=== PATIENT | male | born 1960 | race African-American/Black ===

== ENCOUNTER 2017-01-20 12:27 | Inpatient (IN) | payer MEDICARE, OTHER ==
[2017-01-20] VITALS (10 sets, daily range): BP systolic 130–174; BP diastolic 65–98; PULSE 100–120; RESP 20; Ht 172.7 cm; Wt 89.0 kg
[~2017-01-20] VITALS: Ht 172.7 cm; Wt 89.0 kg
[~2017-01-20 12:27] MED LIST: ASPI-664 PO; ATOR20TA65 PO; GABA100C14 PO; LEVO150T67 PO; LISI-313 PO; MTF1000T PO; QUET300T13 PO; SERT50TA6 PO; SVL400T PO; UDMOM PO
[2017-01-20] MEDS ORDERED: SODIUM CHLORIDE 0.9% 1L BAG IV* STA (12:43)
[2017-01-20] MEDS ORDERED: CEFEPIME 2GM/50 ML (PMX) 50 ML IVPB STA (12:43)
[2017-01-20 13:06] LABS: ADD SCAN DIFF NO
[2017-01-20 13:10] LABS: ABNORMAL IP MESSAGE 1; BASOPHIL # 0.1 10^3/ul (0.0-0.1); BASOPHILS % 0.5 % (0.0-2.0); EOSINOPHILS # 0.1 10^3/ul (0.0-0.5); EOSINOPHILS % 1.2 % (0.0-7.0); HEMATOCRIT 40.6 % (42.0-52.0); HEMOGLOBIN 13.1 g/dl (14.0-18.0); LYMPHOCYTES # 0.5 10^3/ul (0.8-2.9); LYMPHOCYTES % 4.9 % (15.0-51.0); MEAN CORPUSCULAR HEMOGLOBIN 29.1 pg (29.0-33.0); MEAN CORPUSCULAR HGB CONC 32.3 g/dl (32.0-37.0); MEAN CORPUSCULAR VOLUME 90.2 fl (82.0-101.0); MONOCYTE # 0.6 10^3/ul (0.3-0.9); MONOCYTES % 6.2 % (0.0-11.0); NEUTROPHIL # 7.9 10^3/ul (1.6-7.5); NEUTROPHILS % 86.7 % (39.0-77.0); PLATELET COUNT 104 10^3/UL (140-415); RED CELL DISTRIBUTION WIDTH 18.4 % (11.5-14.5); WHITE BLOOD COUNT 9.2 10^3/ul (4.8-10.8)
--- NOTE | 2017-01-20 13:15 | RADRPT ---
PROCEDURE: CT Brain without contrast. CLINICAL INDICATION: Altered mental status TECHNIQUE: A CT of the brain was performed on a multidetector CT scanner utilizing axial sections from the skull base through the vertex without contrast. Images were reviewed on a high-resolution [employer] workstation. Exam CTDI = 44.95 mGy and the DLP = 720.23 mGy-cm. One or more of the following dose reduction techniques were used: Automated exposure control Adjustment of the mA and/or kV according to patient size. Use of iterative reconstruction technique. COMPARISON: CT head 04/09/2016 FINDINGS: Mild diffuse cerebral and cerebellar atrophy is present. There is proportionate dilatation of the v entricular system and sulci in a symmetric fashion. There is prominence of the extraaxial spaces sec ondary to atrophy. There is no evidence of intracranial hemorrhage, mass effect or midline shift. N o abnormal intra-axial or extra-axial fluid collections are seen. The density of the brain is amos l and the bray/white matter differentiation is well preserved. Mild patchy diffuse deep white matte r microangiopathic ischemic change is seen. The osseous structures are unremarkable. Paranasal s inuses are clear. Vascular calcifications are identified. IMPRESSION: 1. No intracranial hemorrhage, mass effect or midline shift. 2. Mild generalized atrophy. Mild microangiopathic ischemic change. 3. Intracranial atherosclerosis. RPTAT: EE .Philomena Phillips MD, MD Date Time Electronically viewed and signed by .Philomena Phillips MD, on 01/20/2017 13:15 .O/
[2017-01-20] MEDS ORDERED: LEVO150T67 PO (13:19)
[2017-01-20 13:23] LABS: INR 1.11; PROTIME 14.3 Sec (12.2-14.2); PT RATIO 1.1
[2017-01-20 13:24] LABS: PARTIAL THROMBOPLASTIN TIME 30.8 Sec (25.0-35.0)
[2017-01-20 13:27] LABS: ALBUMIN 4.4 g/dl (3.3-4.9); ALBUMIN/GLOBULIN RATIO 1.12; CALCIUM 9.1 mg/dl (8.4-10.2); CREATININE 12.81 mg/dl (0.61-1.24); POTASSIUM 5.6 mmol/L (3.5-5.1); TOTAL PROTEIN 8.3 g/dl (6.1-8.1)
[2017-01-20 13:38] LABS: TROPONIN-I 0.112 ng/ml (0.00-0.12)
--- NOTE | 2017-01-20 14:02 | RADRPT ---
PROCEDURE: XR Chest. CLINICAL INDICATION: Sepsis TECHNIQUE: Chest AP portable. COMPARISON: 04/15/2016 FINDINGS: Left internal jugular tunnel dialysis catheter. The mediastinal structures are unremarkable. There is calcification of the thoracic aorta (consiste nt with atherosclerosis). There is mild cardiomegaly. There is no pulmonary venous hypertension. There is a RLL patchy consolidation. There is a small to moderate-sized right pleural effusion. Th e osseous structures are unremarkable. IMPRESSION: Mild cardiomegaly. Pulmonary venous hypertension. RLL patchy consolidation. Small to moderate-sized right pleural effusion. RPTAT: HGDB .Chris Law MD, MD Date Time Electronically viewed and signed by .Chris Law MD, MD on 01/20/2017 14:01 .B/
[2017-01-20 14:06] LABS: ADD UMIC YES; UR BILIRUBIN (Dip) NEGATIVE (NEGATIVE); UR BLOOD (Dip) 1+ (NEGATIVE); UR CLARITY CLEAR (CLEAR); UR COLOR LT. YELLOW (YELLOW); UR KETONES (Dip) NEGATIVE (NEGATIVE); UR LEUKOCYTE ESTERASE (Dip) TRACE (NEGATIVE); UR NITRITE (Dip) NEGATIVE (NEGATIVE); UR TOTAL PROTEIN (Dip) 2+ (NEGATIVE); UR UROBILINOGEN (Dip) 0.2 E.U./dL (0.1-1.0)
[2017-01-20 14:30] LABS: UR BACTERIA MODERATE
[2017-01-20] MEDS ORDERED: ONDANSETRON 4 MG INJ IV PRN (15:30)
[2017-01-20] MEDS ORDERED: ACETAMINOPHEN 325 MG TAB PO PRN (15:30)
--- NOTE | 2017-01-20 16:20 | ERA ---
ER Documentation Chief Complaint Date/Time DATE: 01/20/17 TIME: 16:17 Chief Complaint HYPOTENSIVE ALOC AND TACHY, HPI This 56-year-old male supposedly called 911 himself from his home where he lives alone. When paramedics arrived the patient was a very poor historian able to give minimal information but was hypotensive and tachycardic. Reviewed the patient's EMR and see is a diabetic on dialysis with a history of coronary disease, bipolar and multiple other comorbidities. ROS Unobtainable Medications Home Meds Active Scripts Lisinopril* (Lisinopril*) 5 Mg Tablet, 2.5 MG PO DAILY for 30 Days, TAB Prov:JESSIKA JAMA MD 04/18/16 Metformin* (Glucophage*) 1,000 Mg Tablet, 1000 MG PO WITH BREAKFAST DINNE, #30 TAB Prov:THOMASONGABRIEL V. DISTRICT CAPTAIN 04/12/16 Atorvastatin Calcium (Atorvastatin Calcium) 20 Mg Tablet, 20 MG PO HS for 30 Days, TAB Prov:THOMASONGABRIEL V. DISTRICT CAPTAIN 04/12/16 Aspirin* (Aspirin* EC) 81 Mg Tablet.dr, 81 MG PO DAILY for 30 Days Prov:GABRIEL THOMASON V. DISTRICT CAPTAIN 04/12/16 Sevelamer HCl (Renagel) 400 Mg Tab, 400 MG PO WITH MEALS for 30 Days, TAB Prov:THOMASONGABRIEL V. DISTRICT CAPTAIN 03/16/16 Sertraline Hcl* (Sertraline Hcl*) 50 Mg Tablet, 25 MG PO DAILY for 30 Days, TAB Prov:THOMASONGABRIEL V. DISTRICT CAPTAIN 03/16/16 Reported Medications Levothyroxine Sodium* (Levothyroxine Sodium*) 150 Mcg Tablet, 150 MCG PO BEFORE BREAKFAST, #30 TAB 01/20/17 Quetiapine Fumarate* (Seroquel*) 300 Mg Tablet, 300 MG PO DAILY, TAB 03/13/16 Gabapentin* (Gabapentin*) 100 Mg Capsule, 100 MG PO BID, #90 CAP 03/13/16 Discontinued Scripts Magnesium Hydroxide* (Rose' MOM*) 30 Ml Susp, 30 ML PO DAILY Y for CONSTIPATION, #1 Prov:JESSIKA JAMA MD 04/18/16 Allergies Allergies: Coded Allergies: No Known Allergy (Unverified , 04/14/16) PMhx/Soc History of Surgery: Yes (see PT notes) Anesthesia Reaction: No Hx Neurological Disorder: No Hx Respiratory Disorders: Yes (COPD, Asthma) Hx Cardiac Disorders: Yes (Non ischemic Cardiomyopathy. EF 26%) Hx Psychiatric Problems: No Hx Miscellaneous Medical Probl: Yes (ESRD (access left SC)) Hx Alcohol Use: No Hx Substance Use: No Hx Tobacco Use: No Smoking Status: Never smoker Physical Exam Vitals Vital Signs Date Time Temp Pulse Resp B/P Pulse Ox O2 Delivery O2 Flow Rate FiO2 01/20/17 13:44 102 13 138/94 99 Room Air 01/20/17 12:40 97.6 108 18 124/96 96 Physical Exam Const: [] Moderate distress Head: Atraumatic Eyes: Normal Conjunctiva, EOMI, PERRLA ENT: Normal External Ears, Nose and Mouth. Neck: Full range of motion..~ No meningismus. Resp: Decreased bibasilar breath sounds Cardio: Regular tachycardia, no murmurs Abd: Soft, non tender, non distended. Normal bowel sounds Skin: No petechiae or rashes Back: No midline or flank tenderness Ext: No cyanosis, or edema, dialysis catheter in place Neur: Awake and alert, oriented 1, unable to answer other questions, cannot participate full neuro but moves all 4 extremities Result Diagram: 01/20/17 1255 01/20/17 1255 Results 24 hrs Laboratory Tests Test 01/20/17 12:55 01/20/17 13:57 01/20/17 15:10 White Blood Count 9.210^3/ul Red Blood Count 4.5010^6/ul Hemoglobin 13.1g/dl Hematocrit 40.6% Mean Corpuscular Volume 90.2fl Mean Corpuscular Hemoglobin 29.1pg Mean Corpuscular Hemoglobin Concent 32.3g/dl Red Cell Distribution Width 18.4% Platelet Count 55989^3/UL Mean Platelet Volume fl Neutrophils % 86.7% Lymphocytes % 4.9% Monocytes % 6.2% Eosinophils % 1.2% Basophils % 0.5% Nucleated Red Blood Cells % 0.0/100WBC Neutrophils # 7.910^3/ul Lymphocytes # 0.510^3/ul Monocytes # 0.610^3/ul Eosinophils # 0.110^3/ul Basophils # 0.110^3/ul Nucleated Red Blood Cells # 0.010^3/ul Prothrombin Time 14.3Sec Prothrombin Time Ratio 1.1 INR International Normalized Ratio 1.11 Activated Partial Thromboplast Time 30.8Sec Sodium Level 135mmol/L Potassium Level 5.6mmol/L Chloride Level 100mmol/L Carbon Dioxide Level 17mmol/L Anion Gap 24 Blood Urea Nitrogen 84mg/dl Creatinine 12.81mg/dl Glucose Level 104mg/dl Lactic Acid Level 1.3mmol/L 1.3mmol/L Calcium Level 9.1mg/dl Total Bilirubin 0.0mg/dl Direct Bilirubin 0.00mg/dl Indirect Bilirubin 0.0mg/dl Aspartate Amino Transf (AST/SGOT) 15IU/L Alanine Aminotransferase (ALT/SGPT) 18IU/L Alkaline Phosphatase 122IU/L Troponin I 0.112ng/ml Total Protein 8.3g/dl Albumin 4.4g/dl Globulin 3.90g/dl Albumin/Globulin Ratio 1.12 Salicylates Level < 1.0mg/dl Acetaminophen Level < 10.0ug/ml Ethyl Alcohol Level < 10.0mg/dl Urine Color LT. YELLOW Urine Clarity CLEAR Urine pH 6.0 Urine Specific [place] 1.015 Urine Ketones NEGATIVE Urine Nitrite NEGATIVE Urine Bilirubin NEGATIVE Urine Urobilinogen 0.2 E.U./dL Urine Leukocyte Esterase TRACE Urine Microscopic RBC 5-10/HPF Urine Microscopic WBC 10-25/HPF Urine Epithelial Cells FEW Urine Bacteria MODERATE Urine Hemoglobin 1+ Urine Glucose 0.1%% Urine Total Protein 2+ Current Medications Medications (Trade) Dose Ordered Sig/Yocasta Route PRN Reason Start Time Stop Time Status Last Admin Dose Admin Sodium Chloride 2760 ml 2,760 ml BOLUS OVER 2 HOURS STAT IV* 01/20/17 12:43 01/20/17 12:45 DC 01/20/17 13:38 Cefepime HCl (Maxipime 2gm/50 ml (Pmx)) 50 ml @ 100 mls/hr ONCE STAT IVPB 01/20/17 12:43 01/20/17 13:12 DC 01/20/17 13:37 Ondansetron HCl (Zofran Inj) 4 mg ER BRIDGE PRN IV NAUSEA AND/OR VOMITING 01/20/17 15:30 01/21/17 15:29 Acetaminophen (Tylenol Tab) 650 mg ER BRIDGE PRN PO MILD PAIN/FEVER 6/3/17 15:30 01/21/17 15:29 Aspirin (Halfprin) 81 mg DAILY PO 01/21/17 09:00 UNV Atorvastatin Calcium (Lipitor) 20 mg HS PO 01/20/17 21:00 UNV Gabapentin (Neurontin) 100 mg BID PO 01/20/17 21:00 UNV Levothyroxine Sodium (Synthroid) 150 mcg BEFORE BREAKFAST PO 01/21/17 07:00 UNV Lisinopril (Zestril) 2.5 mg DAILY PO 01/21/17 09:00 UNV Metformin HCl (Glucophage) 1,000 mg WITH BREAKFAST DINNE PO 01/20/17 18:00 01/20/17 18:00 DC Quetiapine Fumarate (Seroquel) 300 mg DAILY PO 01/21/17 09:00 01/21/17 09:00 DC Sertraline HCl (Zoloft) 25 mg DAILY PO 01/21/17 09:00 01/21/17 09:00 DC Sevelamer HCl (Renagel) 400 mg WITH MEALS PO 01/20/17 18:00 UNV Insulin Aspart (Novolog Insulin Pen) NOVOLOG *MILD* ALGORITHM WITH MEALS BEDTIME SC 01/20/17 18:00 UNV Miscellaneous Information (* Miscellaneous Pharmacy Order) HYPOGLYCEMIA PROTOCOL w... ONCE ONCE XX 01/20/17 16:30 01/20/17 16:31 UNV Miscellaneous Information (* Miscellaneous Pharmacy Order) Discontinue Glyburide, Glipizide,... ONCE ONCE XX 01/20/17 16:30 01/20/17 16:31 UNV Miscellaneous Information (* Miscellaneous Pharmacy Order) Discontinue all previ... ONCE ONCE XX 01/20/17 16:30 01/20/17 16:31 UNV Insulin Glargine (Lantus) 17 unit DAILY@20 SC 01/20/17 20:00 UNV Procedures/MDM Likely combined UTI and pneumonia causing sepsis and encephalopathy. Patient was treated with 30 cc/kg of IV fluid as he was tachycardic, he is a dialysis patient with a elevated potassium level and will need dialysis today. Is also given cefepime empirically. Patient likely suffering from some fluid overload however EKG shows no cardiac ischemia currently. Tachycardia is responding to fluid resuscitation. No evidence of intracranial hemorrhage. I do not believe the patient needs a central line at this point he is protecting his airway enough to not need intubation currently. Spoke with Dr. Cobian who will be admitted this patient to telemetry. This point I believe the patient is stabilized enough not to need intensive care unit admission. 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 I see no hemorrhage, no mass- effect or midline shift, no skull fracture Critical care time 41 minutes: This includes treatment of unstable vital signs associated with sepsis from multiple sources, very careful fluid restriction station and dialysis patient, consideration of invasive procedures immediate antibiotic therapy, chart reviewed, discussion with admitting DrKathy, multiple visits the patient's bedside reassess status. This does not include any billable procedures Departure Diagnosis: Primary Impression: Sepsis due to pneumonia Additional Impressions: UTI (urinary tract infection) Metabolic encephalopathy Acute on chronic renal failure Hyperkalemia Condition: Serious ZAKIA LUNA DO Jan 20, 2017 16:20
[2017-01-20] MEDS ORDERED: Discontinue Glyburide, Glipizide, and/or Glimepiride prior to starting Insulin XX ONE (16:30)
[2017-01-20] MEDS ORDERED: HYPOGLYCEMIA PROTOCOL when Glucose is <70 mg/dL or symptomatic <90 mg/dL. XX ONE (16:30)
--- NOTE | 2017-01-20 16:41 | HP ---
Date/Time of Note Date/Time of Note DATE: 01/20/17 TIME: 16:12 Assessment/Plan VTE Prophylaxis VTE Prophylaxis Intervention: heparin Assessment/Plan Assessment/Plan 56 yo M who was brought in by EMS for alteration in mental status now managed for the followin. Acute encephalopathy which could be secondary to uremic encephalopathy 2. Right-sided pneumonia with right-sided pleural effusion 3. Probable urinary tract infection 4. End-stage renal disease on hemodialysis 5. Mild sepsis secondary to #2 and 3 6. Hyperkalemia secondary to renal disease 7. Chronic normocytic normochromic anemia of renal disease 8. Nonischemic cardiomyopathy with last known EF of 24% for which patient refused AICD 9. Hypothyroidism 10. Diabetes mellitus type 2 11. Chronic depression 12. Thrombocytopenia probably secondary to sepsis rule out iron deficiency PLAN: * Telemetry admit/ACS rule out * emergent nephrology consultation for hemodialysis * empiric antibiotic therapy / pancultures to include respiratory cultures * Will discontinue metformin in this patient with end-stage renal disease and we will also hold his depression medications due to alteration in mental status * Continue all other home meds and titrate for improved control * Further interventions per clinical course Prophylaxis with heparin and PPI. HPI/ROS Admit Date/Time Admit Date/Time 01/20/17 Hx of Present Illness This is a 56-year-old male with a past medical history of end-stage renal disease on hemodialysis who was brought in by EMS today because of confusion and altered mentation. At this time the patient is not able to tell me much, but he states that he was supposed to go to hemodialysis today and he could not go because he had come to the emergency room. He does report severe lethargy. He denies chest pain or abdominal pain. Preliminary ER workup is consistent with hypotension and probable pneumonia. He will be admitted for this and further intervention will be instituted when patient is able to give more of a history. ROS 12 point review of system was done and pertinent findings as noted above. However due to patient's clinical status, detailed review of system could not be done. PMH/Family/Social Past Medical History Hypertension: Anemia of CKD: Bipolar d/o: DM 2- insulin dependent Hypothyroidism COPD ESRD on HD T, [facility], Sat at the [facility] Obesity with BMI 31 Dyslipidemia Cardiomyopathy with last EF 24% . Past Surgical History * Permacath placement Family History Significant Family History: no pertinent family hx Social History Alcohol Use: sober Smoking Status: Current every day smoker Drug Use: other (Remote history of drug abuse) Exam/Review of Systems Vital Signs Vitals VS - Last 72 Hours, by Label Date Time Temp Pulse Resp B/P Pulse Ox O2 Delivery O2 Flow Rate FiO2 01/20/17 13:44 102 13 138/94 99 Room Air 01/20/17 12:40 97.6 108 18 124/96 96 Vital Signs Date Time Temp Pulse Resp B/P Pulse Ox O2 Delivery O2 Flow Rate FiO2 01/20/17 13:44 102 13 138/94 99 Room Air 01/20/17 12:40 97.6 Exam Exam Constitutional: Arousable but lethargic, comfortable in sleep however Head: atraumatic, normocephalic Neck: non-tender, supple Respiratory: clear to auscultation Cardiovascular: regular rate and rhythm Gastrointestinal: nl liver, spleen, non-tender, soft Extremities: normal pulses, no lower extremity edema, but patient has chronic venous stasis skin changes. Labs Result Diagram: 01/20/17 1255 01/20/17 1255 Procedures Procedures Laboratory Tests Test 01/20/17 12:55 01/20/17 13:57 01/20/17 15:10 White Blood Count 9.210^3/ul Red Blood Count 4.5010^6/ul Hemoglobin 13.1g/dl Hematocrit 40.6% Mean Corpuscular Volume 90.2fl Mean Corpuscular Hemoglobin 29.1pg Mean Corpuscular Hemoglobin Concent 32.3g/dl Red Cell Distribution Width 18.4% Platelet Count 93733^3/UL Mean Platelet Volume fl Neutrophils % 86.7% Lymphocytes % 4.9% Monocytes % 6.2% Eosinophils % 1.2% Basophils % 0.5% Nucleated Red Blood Cells % 0.0/100WBC Neutrophils # 7.910^3/ul Lymphocytes # 0.510^3/ul Monocytes # 0.610^3/ul Eosinophils # 0.110^3/ul Basophils # 0.110^3/ul Nucleated Red Blood Cells # 0.010^3/ul Prothrombin Time 14.3Sec Prothrombin Time Ratio 1.1 INR International Normalized Ratio 1.11 Activated Partial Thromboplast Time 30.8Sec Sodium Level 135mmol/L Potassium Level 5.6mmol/L Chloride Level 100mmol/L Carbon Dioxide Level 17mmol/L Anion Gap 24 Blood Urea Nitrogen 84mg/dl Creatinine 12.81mg/dl Glucose Level 104mg/dl Lactic Acid Level 1.3mmol/L 1.3mmol/L Calcium Level 9.1mg/dl Total Bilirubin 0.0mg/dl Direct Bilirubin 0.00mg/dl Indirect Bilirubin 0.0mg/dl Aspartate Amino Transf (AST/SGOT) 15IU/L Alanine Aminotransferase (ALT/SGPT) 18IU/L Alkaline Phosphatase 122IU/L Troponin I 0.112ng/ml Total Protein 8.3g/dl Albumin 4.4g/dl Globulin 3.90g/dl Albumin/Globulin Ratio 1.12 Urine Color LT. YELLOW Urine Clarity CLEAR Urine pH 6.0 Urine Specific [place] 1.015 Urine Ketones NEGATIVE Urine Nitrite NEGATIVE Urine Bilirubin NEGATIVE Urine Urobilinogen 0.2 E.U./dL Urine Leukocyte Esterase TRACE Urine Microscopic RBC 5-10/HPF Urine Microscopic WBC 10-25/HPF Urine Epithelial Cells FEW Urine Bacteria MODERATE Urine Hemoglobin 1+ Urine Glucose 0.1%% Urine Total Protein 2+ Current Medications Medications (Trade) Dose Ordered Sig/Yocasta Route PRN Reason Start Time Stop Time Status Last Admin Dose Admin Sodium Chloride 2760 ml 2,760 ml BOLUS OVER 2 HOURS STAT IV* 01/20/17 12:43 01/20/17 12:45 DC 01/20/17 13:38 2,760 ML Cefepime HCl (Maxipime 2gm/50 ml (Pmx)) 50 ml @ 100 mls/hr ONCE STAT IVPB 01/20/17 12:43 01/20/17 13:12 DC 01/20/17 13:37 100 MLS/HR Ondansetron HCl (Zofran Inj) 4 mg ER BRIDGE PRN IV NAUSEA AND/OR VOMITING 01/20/17 15:30 01/21/17 15:29 Acetaminophen (Tylenol Tab) 650 mg ER BRIDGE PRN PO MILD PAIN/FEVER 01/20/17 15:30 01/21/17 15:29 ' PROCEDURE: XR Chest. CLINICAL INDICATION: Sepsis TECHNIQUE: Chest AP portable. COMPARISON: 04/15/2016 FINDINGS: Left internal jugular tunnel dialysis catheter. The mediastinal structures are unremarkable. There is calcification of the thoracic aorta (consistent with atherosclerosis). There is mild cardiomegaly. There is no pulmonary venous hypertension. There is a RLL patchy consolidation. There is a small to moderate-sized right pleural effusion. The osseous structures are unremarkable. IMPRESSION: Mild cardiomegaly. Pulmonary venous hypertension. RLL patchy consolidation. Small to moderate-sized right pleural effusion. RPTAT: HGDB .Chris Law MD, MD Date Time Electronically viewed and signed by .Chris Law MD, on 01/20/2017 14:01 .B/ CC: ZAKIA LUNA DO PROCEDURE: CT Brain without contrast. CLINICAL INDICATION: Altered mental status TECHNIQUE: A CT of the brain was performed on a multidetector CT scanner utilizing axial sections from the skull base through the vertex without contrast. Images were reviewed on a high-resolution PACS workstation. Exam CTDI = 44.95 mGy and the DLP = 720.23 mGy-cm. One or more of the following dose reduction techniques were used: Automated exposure control Adjustment of the mA and/or kV according to patient size. Use of iterative reconstruction technique. COMPARISON: CT head 04/09/2016 FINDINGS: Mild diffuse cerebral and cerebellar atrophy is present. There is proportionate dilatation of the ventricular system and sulci in a symmetric fashion. There is prominence of the extraaxial spaces secondary to atrophy. There is no evidence of intracranial hemorrhage, mass effect or midline shift. No abnormal intra-axial or extra-axial fluid collections are seen. The density of the brain is normal and the bray/white matter differentiation is well preserved. Mild patchy diffuse deep white matter microangiopathic ischemic change is seen. The osseous structures are unremarkable. Paranasal sinuses are clear. Vascular calcifications are identified. IMPRESSION: 1. No intracranial hemorrhage, mass effect or midline shift. 2. Mild generalized atrophy. Mild microangiopathic ischemic change. 3. Intracranial atherosclerosis. RPTAT: EE .Philomena Phillips MD, MD Date Time Electronically viewed and signed by .Philomena Phillips MD, MD on 01/20/2017 13:15 .O/ CC: ZAKIA LUNA BOLATITO M. Jan 20, 2017 16:25
[2017-01-20 16:42] LABS: ACETAMINOPHEN < 10.0 ug/ml (10.0-30.0); ETHANOL < 10.0 mg/dl; SALICYLATE < 1.0 mg/dl (5.0-30.0)
[2017-01-20] MEDS ORDERED: DEXTROSE 50% 50 ML SYRINGE IV PRN ×2 (17:30)
[2017-01-20] MEDS ORDERED: GLUCOSE GEL 15 GRAM TUBE BUCCAL PRN (17:30)
[2017-01-20] MEDS ORDERED: GLUCOSE GEL 15 GRAM TUBE PO PRN ×2 (17:30)
[2017-01-20] MEDS ORDERED: GLUCAGON 1 MG INJ IM PRN (17:30)
[2017-01-20] MEDS ORDERED: NA POLYST SULFON 15 GM/60 ML BTL PR ONE (17:30)
[2017-01-20] MEDS ORDERED: metFORMIN 500 MG TAB PO SCH (18:00)
[2017-01-20 18:26] LABS: BARBITURATES NEGATIVE (NEGATIVE); BENZODIAZEPINES NEGATIVE (NEGATIVE); CANNABINOIDS NEGATIVE (NEGATIVE); COCAINE NEGATIVE (NEGATIVE); OPIATES NEGATIVE (NEGATIVE)
[2017-01-20] MEDS: morphine 2 MG INJ IV PRN ×2 (18:40→22:43)
[2017-01-20] MEDS ORDERED: ALTEPLASE (CATHFLO) 2 MG INJ CATHETER SCH ×2 (20:00)
[2017-01-20] MEDS: INSULIN GLARGINE [LANtus] 3 ML PEN SC SCH (20:50)
[2017-01-20] MEDS: INSULIN ASPART [NOVOLOG] 3 ML PEN SC SCH (21:00)
[2017-01-20] MEDS: GABAPENTIN 100 MG CAP PO SCH (21:48)
[2017-01-20] MEDS: SEVELAMER 400 MG TAB PO SCH (21:48)
[2017-01-20] MEDS: ATORVASTATIN 20 MG TAB PO SCH (21:48)
[2017-01-20] MEDS: ZOLPIDEM 5 MG TAB PO PRN (23:33)
[2017-01-21] VITALS (10 sets, daily range): BP systolic 134–159; BP diastolic 84–95; PULSE 90–120; RESP 15–20
[2017-01-21] MEDS ORDERED: VANCOMYCIN IV PER PHARMACY XX SCH (02:00)
[2017-01-21] MEDS: ACCUCHECK AT 2AM (Patients on SS coverage) XX SCH (02:00)
[2017-01-21] MEDS ORDERED: VANCOMYCIN 2 GM in SOD CHLORIDE 0.9% 500 ML IVPB SCH ×2 (03:00→06:00)
[2017-01-21] MEDS: morphine 2 MG INJ IV PRN ×4 (04:13→18:03)
[2017-01-21] MEDS: LEVOTHYROXINE 150 MCG TAB PO SCH (06:32)
[2017-01-21] MEDS: SEVELAMER 400 MG TAB PO SCH ×3 (07:50→18:35)
[2017-01-21] MEDS: INSULIN ASPART [NOVOLOG] 3 ML PEN SC SCH ×4 (07:51→20:21)
[2017-01-21] MEDS: ASPIRIN (EC) 81 MG TAB PO SCH (08:12)
[2017-01-21] MEDS: GABAPENTIN 100 MG CAP PO SCH ×2 (08:12→20:20)
[2017-01-21] MEDS: LISINOPRIL 5 MG TAB PO SCH (09:00)
[2017-01-21] MEDS ORDERED: SERTRALINE 50 MG TAB PO SCH (09:00)
[2017-01-21] MEDS ORDERED: QUETIAPINE 100 MG TAB PO SCH (09:00)
--- NOTE | 2017-01-21 09:58 | CONS ---
Date/Time of Note Date/Time of Note DATE: 01/21/17 TIME: 09:50 Consult Date/Type/Reason Admit Date/Time Jan 20, 2017 at 15:31 Initial Consult Date Subjective 56 yo male admitted with ams and noted to have pneumonia and hyperkalemia. Required urgent hd yesterday that he tolerated. Objective Vital Signs Date Time Temp Pulse Resp B/P Pulse Ox O2 Delivery O2 Flow Rate FiO2 01/21/17 08:10 108 01/21/17 00:00 97.5 15 134/87 98 01/20/17 18:30 Room Air Intake and Output 01/20/17 01/20/17 01/21/17 15:00 23:00 07:00 Intake Total 500 ml 400 ml Output Total 3500 ml 3000 ml Balance -3000 ml -2600 ml Results/Medications Result Diagram: 01/20/17 1255 01/20/17 1255 Results 24 hrs Laboratory Tests Test 01/20/17 12:55 01/20/17 13:57 01/20/17 15:10 01/20/17 17:40 White Blood Count 9.2 # Red Blood Count 4.50 #L Hemoglobin 13.1 #L Hematocrit 40.6 #L Mean Corpuscular Volume 90.2 Mean Corpuscular Hemoglobin 29.1 Mean Corpuscular Hemoglobin Concent 32.3 Red Cell Distribution Width 18.4 H Platelet Count 104 L Mean Platelet Volume Neutrophils % 86.7 H Lymphocytes % 4.9 L Monocytes % 6.2 Eosinophils % 1.2 Basophils % 0.5 Nucleated Red Blood Cells % 0.0 Neutrophils # 7.9 H Lymphocytes # 0.5 L Monocytes # 0.6 Eosinophils # 0.1 Basophils # 0.1 Nucleated Red Blood Cells # 0.0 Prothrombin Time 14.3 H Prothrombin Time Ratio 1.1 INR International Normalized Ratio 1.11 Activated Partial Thromboplast Time 30.8 Sodium Level 135 Potassium Level 5.6 H Chloride Level 100 Carbon Dioxide Level 17 L Anion Gap 24 H Blood Urea Nitrogen 84 H Creatinine 12.81 H Glucose Level 104 Lactic Acid Level 1.3 1.3 2.0 Calcium Level 9.1 Total Bilirubin 0.0 L Direct Bilirubin 0.00 Indirect Bilirubin 0.0 Aspartate Amino Transf (AST/SGOT) 15 Alanine Aminotransferase (ALT/SGPT) 18 Alkaline Phosphatase 122 H Troponin I 0.112 Total Protein 8.3 H Albumin 4.4 Globulin 3.90 H Albumin/Globulin Ratio 1.12 Free Thyroxine Index 0.40 L Thyroxine (T4) 0.8 *L Triiodothyronine (T3) Uptake 50.0 H Salicylates Level < 1.0 L Acetaminophen Level < 10.0 L Ethyl Alcohol Level < 10.0 Urine Color LT. YELLOW Urine Clarity CLEAR Urine pH 6.0 Urine Specific [place] 1.015 Urine Ketones NEGATIVE Urine Nitrite NEGATIVE Urine Bilirubin NEGATIVE Urine Urobilinogen 0.2 E.U./dL Urine Leukocyte Esterase TRACE H Urine Microscopic RBC 5-10 Urine Microscopic WBC 10-25 Urine Epithelial Cells FEW Urine Bacteria MODERATE Urine Hemoglobin 1+ H Urine Glucose 0.1% H Urine Total Protein 2+ H Urine Opiates Screen NEGATIVE Urine Barbiturates NEGATIVE Urine Amphetamines Screen NEGATIVE Urine Benzodiazepines Screen NEGATIVE Urine Cocaine Screen NEGATIVE Urine Cannabinoids NEGATIVE Test 01/20/17 20:38 01/21/17 07:51 Bedside Glucose 103 73 Medications Current Medications Aspirin (Halfprin) 81 mg DAILY PO ; Start 01/21/17 at 09:00 Atorvastatin Calcium (Lipitor) 20 mg HS PO Last administered on 01/20/17 21:48 ; Admin Dose 20 MG; Start 01/20/17 at 21:00 Gabapentin (Neurontin) 100 mg BID PO Last administered on 01/20/17 21:48; Admin Dose 100 MG; Start 01/20/17 at 21:00 Lisinopril (Zestril) 2.5 mg DAILY PO ; Start 01/21/17 at 09:00 Insulin Glargine (Lantus) 17 unit DAILY@20 SC Last administered on 01/20/17 20: 50; Admin Dose 17 UNIT; Start 01/20/17 at 20:00 Miscellaneous Information 1 ea NOTE XX ; Start 01/20/17 at 17:30 Glucose (Glutose) 15 gm Q15M PRN PO DECREASED GLUCOSE; Start 01/20/17 at 17:30 Glucose (Glutose) 22.5 gm Q15M PRN PO DECREASED GLUCOSE; Start 01/20/17 at 17:30 Dextrose (D50w Syringe) 25 ml Q15M PRN IV DECREASED GLUCOSE; Start 01/20/17 at 17:30 Dextrose (D50w Syringe) 50 ml Q15M PRN IV DECREASED GLUCOSE; Start 01/20/17 at 17:30 Glucagon (Glucagen) 1 mg Q15M PRN IM DECREASED GLUCOSE; Start 01/20/17 at 17:30 Glucose (Glutose) 15 gm Q15M PRN BUCCAL DECREASED GLUCOSE; Start 01/20/17 at 17: 30 Diagnostic Test (Pha) (Accu-Chek) 1 XX ; Start 01/21/17 at 02:00 Morphine Sulfate (morphine) 2 mg Q4 PRN IV PAIN Last administered on 01/21/17 08:41; Admin Dose 2 MG; Start 01/20/17 at 19:00 Zolpidem Tartrate 5 mg 5 mg HS PRN PO INSOMNIA Last administered on 01/20/17 23 :33; Admin Dose 5 MG; Start 01/20/17 at 23:30 Vancomycin HCl/ Sodium Chloride (Vancocin/NS) 500 ml @ 125 mls/hr ONCE IVPB Last administered on 01/21/17 05:32; Admin Dose 125 MLS/HR; Start 01/21/17 at 06: 00; Stop 01/21/17 at 09:59 Assessment/Plan Chief Complaint/Hosp Course 1. End-stage renal disease on hemodialysis - sp hd yesterday. tolerated well. all meds dosed ok. asess daily for hd needs. labs for today. 2. Acute encephalopathy which could be secondary to uremic encephalopathy 3. Probable urinary tract infection- cont abx. fu cultures. 4. Right-sided pneumonia with right-sided pleural effusion 5. Mild sepsis secondary to #4 and 3 6. Hyperkalemia secondary to renal disease- recheck. should have corrected recheck 7. Chronic normocytic normochromic anemia of renal disease. hold epo as currently above recommended hb. 8. Nonischemic cardiomyopathy with last known EF of 24% for which patient refused AICD 9. Hypothyroidism 10. Diabetes mellitus type 2 11. Chronic depression 12. Thrombocytopenia - avoid heparin. consider hit. Problems: VANESA MONTEJO MD Jan 21, 2017 09:58
[2017-01-21] MEDS: OXYCODONE/ACETAMINOPHEN (10/325) TAB PO PRN ×2 (13:46→21:43)
[2017-01-21] MEDS: CEFEPIME 1GM/50 ML (PMX) 50 ML IVPB SCH (13:56)
[2017-01-21 14:26] LABS: ADD SCAN DIFF NO
[2017-01-21 14:30] LABS: ABNORMAL IP MESSAGE 1; BASOPHILS % 0.5 % (0.0-2.0); EOSINOPHILS # 0.3 10^3/ul (0.0-0.5); EOSINOPHILS % 3.5 % (0.0-7.0); HEMATOCRIT 38.2 % (42.0-52.0); HEMOGLOBIN 12.2 g/dl (14.0-18.0); LYMPHOCYTES # 0.6 10^3/ul (0.8-2.9); LYMPHOCYTES % 7.4 % (15.0-51.0); MEAN CORPUSCULAR HEMOGLOBIN 29.1 pg (29.0-33.0); MEAN CORPUSCULAR HGB CONC 31.9 g/dl (32.0-37.0); MEAN CORPUSCULAR VOLUME 91.2 fl (82.0-101.0); MEAN PLATELET VOLUME 11.9 fl (7.4-10.4); MONOCYTE # 0.5 10^3/ul (0.3-0.9); MONOCYTES % 6.4 % (0.0-11.0); NEUTROPHIL # 6.3 10^3/ul (1.6-7.5); NEUTROPHILS % 81.9 % (39.0-77.0); PLATELET COUNT 112 10^3/UL (140-415); RED BLOOD COUNT 4.19 10^6/ul (4.70-6.10); RED CELL DISTRIBUTION WIDTH 18.5 % (11.5-14.5); WHITE BLOOD COUNT 7.7 10^3/ul (4.8-10.8)
[2017-01-21 14:51] LABS: CALCIUM 8.4 mg/dl (8.4-10.2); CREATININE 10.48 mg/dl (0.61-1.24); MAGNESIUM 1.8 mg/dl (1.7-2.5); POTASSIUM 3.7 mmol/L (3.5-5.1)
[2017-01-21 14:57] LABS: IRON 25 ug/dl (35-150)
[2017-01-21] MEDS ORDERED: MAGNESIUM CITRATE 300 ML BTL PO PRN (15:00)
[2017-01-21 15:03] LABS: TROPONIN-I 0.115 ng/ml (0.00-0.12)
[2017-01-21 15:06] LABS: TOTAL IRON BINDING CAPACITY 194 ug/dl (241-421)
[2017-01-21 15:07] LABS: CK-MB 3.33 ng/ml (0.0-2.4)
[2017-01-21] MEDS: DOCUSATE SODIUM 100 MG CAP PO SCH ×2 (15:11→20:21)
[2017-01-21] MEDS: POLYETHYLENE GLYCOL 17 GM PACKET PO SCH (15:11)
[2017-01-21 15:22] LABS: THYROID STIMULATING HORMONE 1.91 MIU/L (0.465-4.680)
--- NOTE | 2017-01-21 15:31 | PN ---
Date/Time of Note Date/Time of Note DATE: 01/21/17 TIME: 15:20 Assessment/Plan VTE Prophylaxis VTE Prophylaxis Intervention: heparin, SCD's Lines/Catheters IV Catheter Type (from Nrsg): Saline Lock Assessment/Plan Assessment/Plan 56 yo M who was brought in by EMS for alteration in mental status now managed for the followin. Acute Uremic encephalopathy: resolved post HD 2. Right-sided pneumonia with right-sided pleural effusion 3. Probable urinary tract infection 4. End-stage renal disease on hemodialysis 5. Mild sepsis secondary to #2 and 3 with Gram positive bacteremia with concern for line sepsis * Patient says this will be his third episode of line sepsis 6. Hyperkalemia secondary to renal disease 7. Chronic normocytic normochromic anemia of renal disease 8. Cardiomyopathy with last known EF of 24% for which patient refused AICD 9. Hypothyroidism 10. Diabetes mellitus type 2 11. Chronic depression 12. Thrombocytopenia probably secondary to sepsis rule out iron deficiency 13. Chronic back and LE pain 14. Non compliance PLAN: * Have encouraged patient to do the lab so we see where we stand with his hyperkalemia * For his positive blood cultures, will continue current antibiotics, obtain ID consult /follow final sensitivities * I will start patient on an appropriate pain regimen, [facility] to see what he is on at [facility], and titrate for comfort * We will continue to debt counselor on the need for compliance with diabetic regimen and doctor's instructions well in-house * Will discontinue metformin in this patient with end-stage renal disease * I would gently restart his antidepressants, and hold for the first sign of alteration in mentation * Continue all other home meds and titrate for improved control * Physical therapy eval in view of recent recurrent falls to this is likely secondary to sepsisg * Continue hemodialysis per renal * Further interventions per clinical course Prophylaxis with heparin and PPI. Subjective 24 Hr Interval Summary Free Text/Dictation Patient is much more alert today. Is able to give me a better history. He states that he has been falling repeatedly for the last 2-3 days. He has been refusing all hospital interventions because of pain and he wanted stronger pain medication. The patient is also obviously not compliant with his diabetic diet, he has 4 cheeseburgers next to him right now, and his power of defense attorney and friend at his bedside tells me that he exists mainly on a diet of pizza and red bull. When I tried to speak with him about this he got very belligerent with me and stated that he will eat whatever he wanted. . Exam/Review of Systems Vital Signs Vitals Vital Signs Date Time Temp Pulse Resp B/P Pulse Ox O2 Delivery O2 Flow Rate FiO2 01/21/17 12:07 109 01/21/17 00:00 97.5 15 134/87 98 01/20/17 18:30 Room Air Intake and Output 01/20/17 01/20/17 01/21/17 15:00 23:00 07:00 Intake Total 500 ml 400 ml Output Total 3500 ml 3000 ml Balance -3000 ml -2600 ml Exam GENERAL: Patient is alert, oriented x 3, in no apparent distress; does not appear acutely or chronically ill. Patient is able to sit up unassisted.Patient makes good eye contact, is conversant, interactive, coherent. Patient appears calm and comfortable and is able to follow commands. HEENT: Oropharynx is clear. There is no carotid bruit, no masses. Patient's pupils are equal, round and reactive to light bilaterally. Extraocular motions are intact. There is no scleral icterus. There is no facial asymmetry. NECK: Supple. LUNGS: Dialysis access in L chest wall / Clear to auscultation bilaterally with good air entry. No Wheezes or crackles. HEART: S1, S2. No murmur, gallops or rubs. Regular rate and rhythm. ABDOMEN: Soft, nontender. Normoactive bowel sounds. There are no stigmata of chronic liver disease. BACK: no costovertebral angle tenderness. GENITOURINARY: Deferred. EXTREMITIES: No edema. There is no cyanosis, clubbing. There are 2+ pulses bilaterally distally. NEUROLOGIC: The patient has no lateralizing signs. Cranial nerves II-XII are intact. SKIN: Chronic venous stasis changes in both lower extremities without edema Results Result Diagram: 01/21/17 1410 01/21/17 1410 Results 24 hrs Laboratory Tests Test 01/20/17 17:40 01/20/17 20:38 01/21/17 07:51 01/21/17 14:10 Lactic Acid Level 2.0 Bedside Glucose 103 73 White Blood Count 7.7 Red Blood Count 4.19 L Hemoglobin 12.2 L Hematocrit 38.2 L Mean Corpuscular Volume 91.2 Mean Corpuscular Hemoglobin 29.1 Mean Corpuscular Hemoglobin Concent 31.9 L Red Cell Distribution Width 18.5 H Platelet Count 112 L Mean Platelet Volume 11.9 #H Neutrophils % 81.9 H Lymphocytes % 7.4 L Monocytes % 6.4 Eosinophils % 3.5 Basophils % 0.5 Nucleated Red Blood Cells % 0.0 Neutrophils # 6.3 Lymphocytes # 0.6 L Monocytes # 0.5 Eosinophils # 0.3 Basophils # 0.0 Nucleated Red Blood Cells # 0.0 Sodium Level 139 Potassium Level 3.7 Chloride Level 102 Carbon Dioxide Level 20 L Anion Gap 21 H Blood Urea Nitrogen 57 H Creatinine 10.48 #H Glucose Level 153 Calcium Level 8.4 Magnesium Level 1.8 Iron Level 25 L Total Iron Binding Capacity 194 L Percent Iron Saturation 13 L Creatine Kinase 86 Creatine Kinase Index 3.9 Creatinine Kinase MB (Mass) 3.33 H Troponin I 0.115 Thyroid Stimulating Hormone (TSH) Pending Medications Medications Current Medications Aspirin (Halfprin) 81 mg DAILY PO ; Start 01/21/17 at 09:00 Atorvastatin Calcium (Lipitor) 20 mg HS PO Last administered on 01/20/17 21:48 ; Admin Dose 20 MG; Start 01/20/17 at 21:00 Gabapentin (Neurontin) 100 mg BID PO Last administered on 01/20/17 21:48; Admin Dose 100 MG; Start 01/20/17 at 21:00 Lisinopril (Zestril) 2.5 mg DAILY PO ; Start 01/21/17 at 09:00 Insulin Glargine (Lantus) 17 unit DAILY@20 SC Last administered on 01/20/17 20: 50; Admin Dose 17 UNIT; Start 01/20/17 at 20:00 Miscellaneous Information 1 ea NOTE XX ; Start 01/20/17 at 17:30 Glucose (Glutose) 15 gm Q15M PRN PO DECREASED GLUCOSE; Start 01/20/17 at 17:30 Glucose (Glutose) 22.5 gm Q15M PRN PO DECREASED GLUCOSE; Start 01/20/17 at 17:30 Dextrose (D50w Syringe) 25 ml Q15M PRN IV DECREASED GLUCOSE; Start 01/20/17 at 17:30 Dextrose (D50w Syringe) 50 ml Q15M PRN IV DECREASED GLUCOSE; Start 01/20/17 at 17:30 Glucagon (Glucagen) 1 mg Q15M PRN IM DECREASED GLUCOSE; Start 01/20/17 at 17:30 Glucose (Glutose) 15 gm Q15M PRN BUCCAL DECREASED GLUCOSE; Start 01/20/17 at 17: 30 Diagnostic Test (Pha) (Accu-Chek) 1 ea 02 XX ; Start 01/21/17 at 02:00 Morphine Sulfate (morphine) 2 mg Q4 PRN IV PAIN Last administered on 01/21/17 13:46; Admin Dose 2 MG; Start 01/20/17 at 19:00 Zolpidem Tartrate (Ambien) 5 mg HS PRN PO INSOMNIA Last administered on 23:33; Admin Dose 5 MG; Start 01/20/17 at 23:30 Oxycodone/ Acetaminophen 1 tab 1 tab Q6H PRN PO PAIN Last administered on 13:46; Admin Dose 1 TAB; Start 01/21/17 at 13:30 Cefepime HCl (Maxipime 1gm/50 ml (Pmx)) 50 ml @ 100 mls/hr Q24H IVPB Last administered on 01/21/17 13:56; Admin Dose 100 MLS/HR; Start 01/21/17 at 14:00 Polyethylene Glycol (Miralax) 17 gm DAILY PO Last administered on 01/21/17 15: 11; Admin Dose 17 GM; Start 01/21/17 at 15:00 Docusate Sodium (Colace) 100 mg BID PO Last administered on 01/21/17 15:11; Admin Dose 100 MG; Start 01/21/17 at 15:00 Magnesium Citrate (Citroma) 300 ml ONCE PRN PO constipation; Start 01/21/17 at 15:00; Stop 01/21/17 at 23:00 Procedures Procedures PROCEDURE: CT Brain without contrast. CLINICAL INDICATION: Altered mental status TECHNIQUE: A CT of the brain was performed on a multidetector CT scanner utilizing axial sections from the skull base through the vertex without contrast. Images were reviewed on a high-resolution PACS workstation. Exam CTDI = 44.95 mGy and the DLP = 720.23 mGy-cm. One or more of the following dose reduction techniques were used: Automated exposure control Adjustment of the mA and/or kV according to patient size. Use of iterative reconstruction technique. COMPARISON: CT head 04/09/2016 FINDINGS: Mild diffuse cerebral and cerebellar atrophy is present. There is proportionate dilatation of the ventricular system and sulci in a symmetric fashion. There is prominence of the extraaxial spaces secondary to atrophy. There is no evidence of intracranial hemorrhage, mass effect or midline shift. No abnormal intra-axial or extra-axial fluid collections are seen. The density of the brain is normal and the bray/white matter differentiation is well preserved. Mild patchy diffuse deep white matter microangiopathic ischemic change is seen. The osseous structures are unremarkable. Paranasal sinuses are clear. Vascular calcifications are identified. IMPRESSION: 1. No intracranial hemorrhage, mass effect or midline shift. 2. Mild generalized atrophy. Mild microangiopathic ischemic change. 3. Intracranial atherosclerosis. RPTAT: EE .Philomena Phillips MD, Date Time Electronically viewed and signed by .Philomena Phillips MD, on 01/20/2017 13:15 .O/ CC: ZAKIA LUNA BOLATITO M. Jan 21, 2017 15:30
[2017-01-21] MEDS: QUETIAPINE 100 MG TAB PO SCH (20:20)
[2017-01-21] MEDS: ATORVASTATIN 20 MG TAB PO SCH (20:21)
[2017-01-21] MEDS: ZOLPIDEM 5 MG TAB PO PRN (21:43)
--- NOTE | 2017-01-21 23:36 | CONS ---
DATE OF ADMISSION: 01/20/2017 DATE OF CONSULTATION: 01/21/2017 TYPE OF CONSULTATION: Infectious disease. REASON FOR CONSULTATION: Antibiotic management. HISTORY OF PRESENT ILLNESS: Jose Manuel Oswald is a 56-year-old male who has a past medical history of en d-stage renal disease on hemodialysis and was brought in by EMS with confusion and altered mental st atus. Preliminary ER workup was consistent with hypotension, probable pneumonia, and sepsis. His p ast medical history includes: 1. Hypertension. 2. Chronic renal disease on hemodialysis. 3. Anemia of chronic renal disease. 4. Bipolar disorder. 5. Adult-onset diabetes mellitus, insulin-dependent. 6. Hypothyroidism. 7. Chronic obstructive pulmonary disease. 8. Dyslipidemia. 9. Obesity with BMI of 31. 10. Cardiomyopathy with last ejection fraction 24%. 11. Perm-A-Cath placement. The patient comes in now with acute encephalopathy, which could be secondary to multiple causes incl uding sepsis or uremia. PAST MEDICAL HISTORY: Operations as outlined. FAMILY HISTORY: Noncontributory. SOCIAL HISTORY: He is an everyday smoker. There is a remote history of drug abuse. He does not dr ink at this point. ALLERGIES: NONE TO PENICILLIN, SULFA, OR FOODS. MEDICATIONS: Per chart. REVIEW OF SYSTEMS: As per HPI. PHYSICAL EXAMINATION: GENERAL: The patient is lethargic, but arousable, in no acute distress. VITAL SIGNS: Stable. He is afebrile. SKIN: Without generalized rash. HEENT: Within normal limits. NECK: Supple. LYMPH NODES: None palpable. CHEST: Decreased breath sounds at the bases. HEART: Without murmur or gallop. ABDOMEN: Soft, nontender without organosplenomegaly or masses. EXTREMITIES: Without cyanosis, clubbing, or edema. He has chronic venous stasis changes. RECTAL AND GENITAL: Deferred. NEUROLOGIC: The patient is confused with altered mental status. ANCILLARY LABORATORY DATA: White count 9.2, H and H of 13.1 and 40.6, platelet count 104,000. BUN and creatinine 84/12.81. Glucose of 104. ASSESSMENT AND PLAN: The patient was started on cefepime. Chest x-ray shows left internal jugular tunneled dialysis catheter. Mediastinal structures are unremarkable. There is no pulmonary venous hypertension. There is right lower lobe patchy consolidation, mild cardiomegaly. CT scan of the br ain shows no intracranial hemorrhage, mass effect, or midline shift, mild microangiopathic changes, intracranial atherosclerosis. The patient's white count today 7.7. BUN and creatinine is 57/10.48. Urine shows trace leukocyte esterase, 10 to 25 white cells per high-power field. The patient come s in now with altered mental status, probable pneumonitis. He was started on cefepime. He also rec eived vancomycin, which will last for a few days, at least. He had blood cultures drawn, urine cult ures, and urinalysis done. Lactic acid. We will await his culture reports. I will dictate my find ings to the hospitalist and to Dr. Das, the motor and chassis inspector on the case. Dictated By: GISELLE JENKINS MD, JD/NTS Conf#: [id number] DID#: [id number] CC: ELIZABETH TODD MD;*EndCC*
[2017-01-22] VITALS (19 sets, daily range): BP systolic 109–167; BP diastolic 49–101; PULSE 67–118; RESP 17–20
[2017-01-22] MEDS: INSULIN GLARGINE [LANtus] 3 ML PEN SC SCH ×2 (00:46→21:02)
[2017-01-22] MEDS: ACCUCHECK AT 2AM (Patients on SS coverage) XX SCH (02:00)
[2017-01-22] MEDS: morphine 2 MG INJ IV PRN ×3 (03:05→22:13)
--- NOTE | 2017-01-22 03:45 | CONS ---
DATE OF ADMISSION: 01/20/2017 DATE OF CONSULTATION: RENAL CONSULTATION HISTORY OF PRESENT ILLNESS: The patient is a 76-year-old gentleman with past medical history of end -stage renal disease, diabetes, bipolar disorder, coronary artery disease. The patient presented af ter noticing weakness, fever, agitation, altered mental status. The patient missed his dialysis com plaining of severe lethargy, worsened chronic pain. The patient is being attended to at [facility]. He has been on dialysis for several years, presumably from his diabetes. The patient was noted to have severe hyperkalemia. The patient is not a good historian. History is obtained from previous admissions and the chart. PAST MEDICAL HISTORY: Hypertension, anemia of chronic kidney disease, bipolar disorder, diabetes, h ypothyroidism, COPD, end-stage renal disease on hemodialysis, obesity, dyslipidemia, cardiomyopathy, EF 24%, history of PermCath placement, history of chronic pain. MEDICATIONS: From home include 1. Lisinopril. 2. Metformin. 3. Lipitor. 4. Aspirin. 5. Sevelamer 6. Sertraline. 7. Synthroid. 8. Seroquel. 9. Gabapentin. 10. Tylenol. ALLERGIES: THE PATIENT HAS NO KNOWN ALLERGIES. SOCIAL HISTORY: Does not smoke, drink, or do drugs. FAMILY HISTORY: History of kidney disease. REVIEW OF SYSTEMS: A 14-point review of systems is attempted and negative unless stated. PHYSICAL EXAMINATION: VITAL SIGNS: Temperature 97.6, blood pressure 124/96. HEENT: Normocephalic, atraumatic. Pupils are equal and reactive to light. Moist mucous membranes. NECK: Supple. HEART: Regular rate and rhythm. LUNGS: Clear to auscultation. ABDOMEN: Soft, nontender, nondistended. Bowel sounds present. LABORATORY EVALUATION: Shows white count 9.2, hemoglobin 13, hematocrit 40.6. Sodium 135, potassiu m 5.6, BUN 84, creatinine 12.8. UA is reviewed under microscopy. Chest x-ray was reviewed with shivani iologist. IMPRESSION: 1. End-stage renal disease with hyperkalemia, dialysis ____. The patient is currently on dialysis, tolerating. Assess daily for dialysis needs. All medications are dosed appropriately for renal fu nction. Agree with holding metformin as you are doing as this is contraindicated in this degree of renal insufficiency. 2. Sepsis, likely due to pneumonia. Follow up cultures. Empiric antibiotics. 3. Possible urinary tract infection. Follow up cultures. 4. Encephalopathy, likely toxic metabolic from infection, possibly uremia. Treat underlying condit ions. Monitor. 5. Hyperkalemia should correct with dialysis. 6. Anemia of chronic disease. Above guidelines. Would continue to hold metformin ____ last known ejection fraction of 24% for which the patient refused AICD. 7. Hypothyroidism, on replacement. 8. Diabetes type 2. Continue sliding scale. 9. Bipolar disorder on Seroquel. Concerned the dose may not be right. 10. Thrombocytopenia. This seems to be persistent. Dictated By: VANESA MONTEJO MD DF/LEAH Conf#: [id number] DID#: [id number]
[2017-01-22] MEDS: LEVOTHYROXINE 150 MCG TAB PO SCH (06:41)
[2017-01-22 07:23] LABS: ADD SCAN DIFF NO
[2017-01-22 07:32] LABS: BASOPHILS % 0.5 % (0.0-2.0); EOSINOPHILS # 0.4 10^3/ul (0.0-0.5); EOSINOPHILS % 4.5 % (0.0-7.0); HEMATOCRIT 37.4 % (42.0-52.0); LYMPHOCYTES # 0.7 10^3/ul (0.8-2.9); LYMPHOCYTES % 8.4 % (15.0-51.0); MEAN CORPUSCULAR HEMOGLOBIN 29.3 pg (29.0-33.0); MEAN CORPUSCULAR HGB CONC 32.1 g/dl (32.0-37.0); MEAN CORPUSCULAR VOLUME 91.4 fl (82.0-101.0); MEAN PLATELET VOLUME 11.9 fl (7.4-10.4); MONOCYTE # 0.8 10^3/ul (0.3-0.9); MONOCYTES % 9.1 % (0.0-11.0); NEUTROPHIL # 6.7 10^3/ul (1.6-7.5); NEUTROPHILS % 77.2 % (39.0-77.0); RED BLOOD COUNT 4.09 10^6/ul (4.70-6.10); RED CELL DISTRIBUTION WIDTH 18.4 % (11.5-14.5); WHITE BLOOD COUNT 8.7 10^3/ul (4.8-10.8)
[2017-01-22 07:46] LABS: ALBUMIN 3.9 g/dl (3.3-4.9); CALCIUM 8.5 mg/dl (8.4-10.2); CREATININE 11.18 mg/dl (0.61-1.24); MAGNESIUM 2.1 mg/dl (1.7-2.5); PHOSPHORUS 8.2 mg/dl (2.5-4.9); POTASSIUM 5.2 mmol/L (3.5-5.1); TOTAL PROTEIN 7.8 g/dl (6.1-8.1)
[2017-01-22] MEDS: INSULIN ASPART [NOVOLOG] 3 ML PEN SC SCH ×4 (07:55→20:59)
[2017-01-22] MEDS: SEVELAMER 400 MG TAB PO SCH ×3 (08:52→18:06)
[2017-01-22] MEDS: GABAPENTIN 100 MG CAP PO SCH ×2 (09:00→20:48)
[2017-01-22] MEDS: POLYETHYLENE GLYCOL 17 GM PACKET PO SCH (09:00)
[2017-01-22 10:57] LABS: PLATELET COUNT 134 10^3/UL (140-415)
--- NOTE | 2017-01-22 11:44 | PN ---
DATE: 01/22/2017 SUBJECTIVE: The patient is stable, no acute events overnight. No fevers, chills, nausea/vomiting, shortness of breath. OBJECTIVE: VITAL SIGNS: Blood pressure 152/96, respiration 19, pulse 90, temperature 98.3. HEENT: Head is normocephalic. NECK: Supple. HEART: Regular rate. LUNGS: Show diminished breath sounds at base. ABDOMEN: Soft, nontender to palpation. No rebound or guarding. EXTREMITIES: Negative for clubbing, cyanosis, no edema. DERMATOLOGIC: No rashes. MUSCULOSKELETAL: No joint effusions. NEUROLOGIC: No change in exam. MEDICATIONS: The patient's medications have been reviewed. LABORATORY DATA: Shows sodium 138, potassium 5.2, chloride 100, BUN 60, creatinine 1.18. White cou nt is 5.7, hemoglobin 12.0, hematocrit 37.4, platelet count is pending. ASSESSMENT AND PLAN: 1. End-stage renal disease. Plan for dialysis today for 3 hours on a 2K bath, calcium 2.5, will ul trafiltrate as tolerated. 2. Anemia, etiology is multifactorial secondary to iron deficiency and chronic kidney disease. The patient's iron panel shows evidence of iron deficiency. Will check ferritin level and we will cons ider a course of IV iron. Would also continue Epogen with hemodialysis as needed. The patient's he moglobin levels are currently at goal. No immediate need for Epogen at this time. 3. Mineral bone disorder. Continue to monitor calcium and phosphorus levels. Continue phosphate b inders. 4. Volume overload. Continue ultrafiltration with hemodialysis. Minimize oral intake. 5. Hyperkalemia secondary to end-stage renal disease. The patient will be dialyzed on 2 potassium bath. 6. Acute encephalopathy. Etiology is likely secondary to uremia, toxic metabolic. Continue hemodi alysis. Continue current antibiotic regimen to treat underlying sepsis. 7. Sepsis with positive blood cultures. Concerning for possible line infection. We will continue current antibiotic regimen. Repeat blood cultures. If repeat blood cultures positive or blood cult ures from dialysis catheter are positive, we will consider discontinuing Perm-A-Cath. We will discu ss the case with Infectious Disease. 8. Diabetes, continue Accu-Cheks and sliding scale. 9. Hypothyroidism, continue Synthroid. 10. Bipolar disorder. Continue medical management. 11. Thrombocytopenia. Will continue to monitor. Dictated By: KERI MEADE/LEAH Conf#: [id number] DID#: [id number]
[2017-01-22] MEDS ORDERED: ALTEPLASE (CATHFLO) 2 MG INJ CATHETER ONE ×2 (13:30)
--- NOTE | 2017-01-22 14:34 | PN ---
DATE: 01/22/2017 INFECTIOUS DISEASE PROGRESS NOTE SUBJECTIVE: No acute changes. The patient is alert, lying comfortably in bed. He is afebrile. He is tachycardic. VITAL SIGNS: Temperature 97.7, pulse 110, respirations 17, blood pressure 167/101, saturation 97%. LABORATORY DATA: WBC 8.7, platelets 134, neutrophils 77.2. INDWELLINGS: Left chest PermCath. MICROBIOLOGY: Blood culture on admission grew gram-positive cocci in pairs and clusters. Urine cul ture negative. DIAGNOSTICS: Chest x-ray revealed right lower lobe patchy consolidation and small to moderate right -sided pleural effusion. CT of the brain revealed no acute intracranial pathology. ANTIMICROBIALS: The patient is on: 1. IV cefepime. 2. Vancomycin. PHYSICAL EXAMINATION: GENERAL: This is an obese, well-developed, middle-aged man who is alert, in no dis tress. HEENT: Head atraumatic, normocephalic. Sclerae anicteric. Buccal mucosa pink. NECK: Supple. CHEST: Rise symmetrical. Breath sounds diminished to bases. HEART: S1, S2. ABDOMEN: Soft, bowel sounds present. EXTREMITIES: Without cyanosis. ASSESSMENT: 1. Sepsis with acute encephalopathy, tachycardia, and hypoxemia. 2. Gram-positive cocci bacteremia. 3. Pneumonia. 4. End-stage renal disease, hemodialysis dependent. 5. Diabetes. 6. Chronic obstructive pulmonary disease. 7. Left chest PermCath. PLAN: The patient remains stable. We are going to repeat blood cultures with next hemodialysis for Anil to rule out line sepsis. Await for final cultures. Try to obtain sputum cultures. Contin ue antibiotics. Dictated By: AUBRIE MORGAN DELIVERY MGR for GISELLE JENKINS MD NI/NTS Conf#: [id number] DID#: [id number]
[2017-01-22] MEDS: CEFEPIME 1GM/50 ML (PMX) 50 ML IVPB SCH (16:28)
[2017-01-22] MEDS: DOCUSATE SODIUM 100 MG CAP PO SCH ×2 (16:37→20:48)
[2017-01-22] MEDS: ASPIRIN (EC) 81 MG TAB PO SCH (16:37)
--- NOTE | 2017-01-22 17:12 | PN ---
Date/Time of Note Date/Time of Note DATE: 01/22/17 TIME: 17:04 Assessment/Plan VTE Prophylaxis VTE Prophylaxis Intervention: heparin Lines/Catheters IV Catheter Type (from Nrsg): Saline Lock Assessment/Plan Chief Complaint/Hosp Course 1. Acute metabolic encephalopathy secondary to sepsis from pneumonia and/or Uremia 2. Right-sided pneumonia with right-sided pleural effusion 3. Sepsis with bacteremia likely secondary to right-sided pneumonia Patient may also have line sepsis has had 2 prior episodes of line sepsis 4. End-stage renal disease on hemodialysis 5. Chronic back and LE pain 6. Hyperkalemia secondary to renal disease 7. Chronic normocytic normochromic anemia of renal disease 8. Cardiomyopathy with last known EF of 24% for which patient refused AICD 9. Hypothyroidism 10. Diabetes mellitus type 2 11. Chronic depression 12. Thrombocytopenia probably secondary to sepsis rule out iron deficiency 13. Non compliance PLAN: * Hypokalemia has improved * For his positive blood cultures, will continue current antibiotics, ID consult appreciated, follow-up on cultures * Pain control[facility] * We will continue to queen's counsel on the need for compliance with diabetic regimen and doctor's instructions well in-house * Discontinued metformin in this patient with end-stage renal disease * Gently restart his antidepressants, and hold for the first sign of alteration in mentation * Physical therapy eval in view of recent recurrent falls to this is likely secondary to sepsis * Continue hemodialysis per renal * Further interventions per clinical course Prophylaxis with heparin and PPI. Problems: Subjective 24 Hr Interval Summary Constitutional: disoriented Exam/Review of Systems Vital Signs Vitals Vital Signs Date Time Temp Pulse Resp B/P Pulse Ox O2 Delivery O2 Flow Rate FiO2 01/22/17 16:22 118 01/22/17 15:36 97.2 17 115/77 95 01/20/17 18:30 Room Air Intake and Output 01/21/17 01/21/17 01/22/17 15:00 23:00 07:00 Intake Total 550 ml 960 ml 300 ml Balance 550 ml 960 ml 300 ml Exam Psych: confusion Respiratory: clear to auscultation Cardiovascular: regular rate and rhythm Gastrointestinal: soft, No distended Musculoskeletal: nl extremities to inspection Results Result Diagram: 01/22/17 0600 01/22/17 0600 Results 24 hrs Laboratory Tests Test 01/21/17 17:31 01/21/17 20:16 01/22/17 06:00 01/22/17 08:42 Bedside Glucose 94 139 68 L White Blood Count 8.7 Red Blood Count 4.09 L Hemoglobin 12.0 L Hematocrit 37.4 L Mean Corpuscular Volume 91.4 Mean Corpuscular Hemoglobin 29.3 Mean Corpuscular Hemoglobin Concent 32.1 Red Cell Distribution Width 18.4 H Platelet Count 134 L Mean Platelet Volume 11.9 H Neutrophils % 77.2 H Lymphocytes % 8.4 L Monocytes % 9.1 Eosinophils % 4.5 Basophils % 0.5 Nucleated Red Blood Cells % 0.0 Neutrophils # 6.7 Lymphocytes # 0.7 L Monocytes # 0.8 Eosinophils # 0.4 Basophils # 0.0 Nucleated Red Blood Cells # 0.0 Sodium Level 138 Potassium Level 5.2 H Chloride Level 100 Carbon Dioxide Level 22 Anion Gap 21 H Blood Urea Nitrogen 63 H Creatinine 11.18 H Glucose Level 57 #L Calcium Level 8.5 Phosphorus Level 8.2 H Magnesium Level 2.1 Ferritin 385.0 H Total Bilirubin 0.0 L Direct Bilirubin 0.00 Indirect Bilirubin 0.0 Aspartate Amino Transf (AST/SGOT) 18 Alanine Aminotransferase (ALT/SGPT) 23 Alkaline Phosphatase 82 Total Protein 7.8 Albumin 3.9 Globulin 3.90 H Albumin/Globulin Ratio 1.00 Test 01/22/17 12:24 Bedside Glucose 77 Medications Medications Current Medications Aspirin (Halfprin) 81 mg DAILY PO Last administered on 01/22/17 16:37; Admin Dose 81 MG; Start 01/21/17 at 09:00 Atorvastatin Calcium (Lipitor) 20 mg HS PO Last administered on 01/21/17 20:21 ; Admin Dose 20 MG; Start 01/20/17 at 21:00 Gabapentin (Neurontin) 100 mg BID PO Last administered on 01/21/17 20:20; Admin Dose 100 MG; Start 01/20/17 at 21:00 Lisinopril (Zestril) 2.5 mg DAILY PO ; Start 01/21/17 at 09:00 Insulin Glargine (Lantus) 17 unit DAILY@20 SC Last administered on 01/22/17 00: 46; Admin Dose 17 UNIT; Start 01/20/17 at 20:00 Miscellaneous Information 1 ea NOTE XX ; Start 01/20/17 at 17:30 Glucose (Glutose) 15 gm Q15M PRN PO DECREASED GLUCOSE; Start 01/20/17 at 17:30 Glucose (Glutose) 22.5 gm Q15M PRN PO DECREASED GLUCOSE; Start 01/20/17 at 17:30 Dextrose (D50w Syringe) 25 ml Q15M PRN IV DECREASED GLUCOSE; Start 01/20/17 at 17:30 Dextrose (D50w Syringe) 50 ml Q15M PRN IV DECREASED GLUCOSE; Start 01/20/17 at 17:30 Glucagon (Glucagen) 1 mg Q15M PRN IM DECREASED GLUCOSE; Start 01/20/17 at 17:30 Glucose (Glutose) 15 gm Q15M PRN BUCCAL DECREASED GLUCOSE; Start 01/20/17 at 17: 30 Diagnostic Test (Pha) (Accu-Chek) 1 ea 02 XX ; Start 01/21/17 at 02:00 Morphine Sulfate (morphine) 2 mg Q4 PRN IV PAIN Last administered on 01/22/17 16:31; Admin Dose 2 MG; Start 01/20/17 at 19:00 Zolpidem Tartrate (Ambien) 5 mg HS PRN PO INSOMNIA Last administered on 21:43; Admin Dose 5 MG; Start 01/20/17 at 23:30 Oxycodone/ Acetaminophen 1 tab 1 tab Q6H PRN PO PAIN Last administered on 21:43; Admin Dose 1 TAB; Start 01/21/17 at 13:30 Cefepime HCl (Maxipime 1gm/50 ml (Pmx)) 50 ml @ 100 mls/hr Q24H IVPB Last administered on 01/22/17 16:28; Admin Dose 100 MLS/HR; Start 01/21/17 at 14:00 Polyethylene Glycol (Miralax) 17 gm DAILY PO Last administered on 01/21/17 15: 11; Admin Dose 17 GM; Start 01/21/17 at 15:00 Docusate Sodium (Colace) 100 mg BID PO Last administered on 01/22/17 16:37; Admin Dose 100 MG; Start 01/21/17 at 15:00 Quetiapine Fumarate (Seroquel) 200 mg QHS PO Last administered on 01/21/17 20: 20; Admin Dose 200 MG; Start 01/21/17 at 21:00 SCOT DÍAZ Jan 22, 2017 17:12
[2017-01-22] MEDS: LISINOPRIL 5 MG TAB PO SCH (18:07)
[2017-01-22] MEDS: ATORVASTATIN 20 MG TAB PO SCH (20:48)
[2017-01-22] MEDS: QUETIAPINE 100 MG TAB PO SCH (20:49)
[2017-01-22] MEDS: OXYCODONE/ACETAMINOPHEN (10/325) TAB PO PRN (20:55)
[2017-01-23] VITALS (13 sets, daily range): BP systolic 117–150; BP diastolic 77–94; PULSE 96–110; RESP 18–22
[2017-01-23] MEDS: ACCUCHECK AT 2AM (Patients on SS coverage) XX SCH (02:00)
[2017-01-23] MEDS: LEVOTHYROXINE 150 MCG TAB PO SCH (06:20)
[2017-01-23 07:46] LABS: ADD SCAN DIFF NO
[2017-01-23 07:53] LABS: BASOPHILS % 0.6 % (0.0-2.0); EOSINOPHILS # 0.4 10^3/ul (0.0-0.5); EOSINOPHILS % 5.6 % (0.0-7.0); HEMATOCRIT 38.4 % (42.0-52.0); HEMOGLOBIN 12.4 g/dl (14.0-18.0); LYMPHOCYTES # 0.7 10^3/ul (0.8-2.9); LYMPHOCYTES % 10.5 % (15.0-51.0); MEAN CORPUSCULAR HEMOGLOBIN 29.4 pg (29.0-33.0); MEAN CORPUSCULAR HGB CONC 32.3 g/dl (32.0-37.0); MEAN PLATELET VOLUME 11.8 fl (7.4-10.4); MONOCYTE # 0.6 10^3/ul (0.3-0.9); NEUTROPHIL # 5.2 10^3/ul (1.6-7.5); NEUTROPHILS % 74.9 % (39.0-77.0); PLATELET COUNT 103 10^3/UL (140-415); RED BLOOD COUNT 4.22 10^6/ul (4.70-6.10); RED CELL DISTRIBUTION WIDTH 18.2 % (11.5-14.5)
[2017-01-23] MEDS: INSULIN ASPART [NOVOLOG] 3 ML PEN SC SCH ×4 (07:55→21:00)
[2017-01-23 08:09] LABS: CALCIUM 8.5 mg/dl (8.4-10.2); CREATININE 10.4 mg/dl (0.61-1.24); MAGNESIUM 2.2 mg/dl (1.7-2.5); PHOSPHORUS 7.8 mg/dl (2.5-4.9); POTASSIUM 4.9 mmol/L (3.5-5.1)
[2017-01-23] MEDS: SEVELAMER 400 MG TAB PO SCH (08:55)
[2017-01-23] MEDS: GABAPENTIN 100 MG CAP PO SCH ×2 (09:33→22:03)
[2017-01-23] MEDS: DOCUSATE SODIUM 100 MG CAP PO SCH ×2 (09:33→22:02)
[2017-01-23] MEDS: ASPIRIN (EC) 81 MG TAB PO SCH (09:33)
[2017-01-23] MEDS: LISINOPRIL 5 MG TAB PO SCH (09:35)
--- NOTE | 2017-01-23 10:02 | PN ---
DATE: 01/23/2017 SUBJECTIVE: The patient had hemodialysis yesterday with 3 liters removed. No other events noted. OBJECTIVE: VITAL SIGNS: Blood pressure is 117/77, respirations 18, pulse 96, temperature 98.5. HEENT: Head is normocephalic. NECK: Supple. HEART: Regular rate. LUNGS: Show diminished breath sounds at the bases. ABDOMEN: Soft, nontender to palpation. No rebound or guarding. EXTREMITIES: Negative for clubbing, cyanosis. No edema. DERMATOLOGIC: No rashes. MUSCULOSKELETAL: No joint effusions. NEUROLOGIC: No change in exam. MEDICATIONS: The patient's medications have been reviewed. LABORATORY DATA: Shows sodium 139, potassium 4.9, BUN 56, creatinine 7.40. White count 7.0, hemogl obin 12.4, hematocrit 38.4, platelet count is 103. ASSESSMENT AND PLAN: 1. End-stage renal disease. The patient had hemodialysis yesterday, tolerated well. Plan for dial ysis tomorrow. 2. Anemia. Etiology is multifactorial secondary to iron deficiency, chronic kidney disease. We wi ll continue Epogen. We will give the patient a trial of IV Ferrlecit. We will continue to monitor closely. 3. Mineral bone disorder. Continue to monitor calcium and phosphorus levels. Phosphorus levels re main elevated. We will increase Renagel to 800 mg t.i.d. 4. Volume overload. Continue ultrafiltration dialysis. 5. Hyperkalemia, improved. Continue dialysis on 2 potassium bath. 6. Acute encephalopathy. Etiology is multifactorial toxic metabolic, uremic. Continue hemodialysi s. Continue current antibiotic regimen. 7. Sepsis, positive blood cultures. The patient's repeat cultures have been negative. We will con tinue to monitor. Follow up with infectious disease. We will discuss with infectious disease wheth er or not PermCath needs to be removed. 8. Diabetes. Continue Accu-Cheks and insulin sliding scale. 9. Hypothyroidism. Continue Synthroid. 10. Bipolar disorder. Continue medical management. 11. Thrombocytopenia. Continue to monitor. Dictated By: KERI DE SUOZA DO NR/NTS Conf#: [id number] DID#: [id number]
[2017-01-23] MEDS: POLYETHYLENE GLYCOL 17 GM PACKET PO SCH (12:00)
[2017-01-23] MEDS: SEVELAMER 800 MG TAB PO SCH ×2 (13:37→18:17)
[2017-01-23] MEDS: SOD FERRIC GLUC COMPLX 125 MG in SOD CHLORIDE 0.9% 100 ML IVPB SCH (13:37)
[2017-01-23] MEDS: CEFEPIME 1GM/50 ML (PMX) 50 ML IVPB SCH (13:47)
--- NOTE | 2017-01-23 15:32 | PN ---
Date/Time of Note Date/Time of Note DATE: 01/23/17 TIME: 15:31 Assessment/Plan VTE Prophylaxis VTE Prophylaxis Intervention: heparin Lines/Catheters IV Catheter Type (from Nrsg): Saline Lock Assessment/Plan Chief Complaint/Hosp Course 1. Acute metabolic encephalopathy secondary to sepsis from pneumonia and/or Uremia 2. Right-sided pneumonia with right-sided pleural effusion 3. Sepsis with bacteremia likely secondary to right-sided pneumonia versus line sepsis Patient has had 2 prior episodes of line sepsis 4. End-stage renal disease on hemodialysis 5. Chronic back and LE pain 6. Hyperkalemia secondary to renal disease 7. Chronic normocytic normochromic anemia of renal disease 8. Cardiomyopathy with last known EF of 24% for which patient refused AICD 9. Hypothyroidism 10. Diabetes mellitus type 2 11. Chronic depression 12. Thrombocytopenia probably secondary to sepsis rule out iron deficiency 13. Non compliance PLAN: * Hypokalemia has improved * For his positive blood cultures, will continue current antibiotics, ID consult appreciated, follow-up on cultures * Pain control, [facility] is [facility] * We will continue to prison classification counselor on the need for compliance with diabetic regimen and doctor's instructions well in-house * Discontinued metformin in this patient with end-stage renal disease * Gently restart his antidepressants, and hold for the first sign of alteration in mentation * Physical therapy eval in view of recent recurrent falls to this is likely secondary to sepsis * Continue hemodialysis per renal * Further interventions per clinical course Prophylaxis with heparin and PPI. Problems: Subjective 24 Hr Interval Summary Constitutional: no complaints Exam/Review of Systems Vital Signs Vitals Vital Signs Date Time Temp Pulse Resp B/P Pulse Ox O2 Delivery O2 Flow Rate FiO2 01/23/17 15:24 97.8 96 18 133/83 97 01/20/17 18:30 Room Air Intake and Output 01/22/17 01/22/17 01/23/17 15:00 23:00 07:00 Intake Total 300 ml 500 ml 240 ml Output Total 3300 ml 350 ml Balance -3000 ml 500 ml -110 ml Exam Constitutional: alert Psych: confusion Respiratory: clear to auscultation Cardiovascular: regular rate and rhythm Gastrointestinal: soft, No distended Musculoskeletal: nl extremities to inspection Results Result Diagram: 01/23/17 0625 01/23/17 0625 Results 24 hrs Laboratory Tests Test 01/22/17 17:55 01/22/17 20:58 01/23/17 06:25 01/23/17 08:35 Bedside Glucose 103 130 87 White Blood Count 7.0 Red Blood Count 4.22 L Hemoglobin 12.4 L Hematocrit 38.4 L Mean Corpuscular Volume 91.0 Mean Corpuscular Hemoglobin 29.4 Mean Corpuscular Hemoglobin Concent 32.3 Red Cell Distribution Width 18.2 H Platelet Count 103 #L Mean Platelet Volume 11.8 H Neutrophils % 74.9 Lymphocytes % 10.5 L Monocytes % 8.0 Eosinophils % 5.6 Basophils % 0.6 Nucleated Red Blood Cells % 0.0 Neutrophils # 5.2 Lymphocytes # 0.7 L Monocytes # 0.6 Eosinophils # 0.4 Basophils # 0.0 Nucleated Red Blood Cells # 0.0 Sodium Level 139 Potassium Level 4.9 Chloride Level 101 Carbon Dioxide Level 21 Anion Gap 22 H Blood Urea Nitrogen 56 H Creatinine 10.40 H Glucose Level 70 Calcium Level 8.5 Phosphorus Level 7.8 H Magnesium Level 2.2 Test 01/23/17 13:36 Bedside Glucose 93 Medications Medications Current Medications Aspirin (Halfprin) 81 mg DAILY PO Last administered on 01/23/17 09:33; Admin Dose 81 MG; Start 01/21/17 at 09:00 Atorvastatin Calcium (Lipitor) 20 mg HS PO Last administered on 01/22/17 20:48 ; Admin Dose 20 MG; Start 01/20/17 at 21:00 Gabapentin (Neurontin) 100 mg BID PO Last administered on 01/23/17 09:33; Admin Dose 100 MG; Start 01/20/17 at 21:00 Lisinopril (Zestril) 2.5 mg DAILY PO Last administered on 01/23/17 09:35; Admin Dose 2.5 MG; Start 01/21/17 at 09:00 Insulin Glargine (Lantus) 17 unit DAILY@20 SC Last administered on 01/22/17 21: 02; Admin Dose 17 UNIT; Start 01/20/17 at 20:00 Miscellaneous Information 1 ea NOTE XX ; Start 01/20/17 at 17:30 Glucose (Glutose) 15 gm Q15M PRN PO DECREASED GLUCOSE; Start 01/20/17 at 17:30 Glucose (Glutose) 22.5 gm Q15M PRN PO DECREASED GLUCOSE; Start 01/20/17 at 17:30 Dextrose (D50w Syringe) 25 ml Q15M PRN IV DECREASED GLUCOSE; Start 01/20/17 at 17:30 Dextrose (D50w Syringe) 50 ml Q15M PRN IV DECREASED GLUCOSE; Start 01/20/17 at 17:30 Glucagon (Glucagen) 1 mg Q15M PRN IM DECREASED GLUCOSE; Start 01/20/17 at 17:30 Glucose (Glutose) 15 gm Q15M PRN BUCCAL DECREASED GLUCOSE; Start 01/20/17 at 17: 30 Diagnostic Test (Pha) (Accu-Chek) 1 ea 02 XX ; Start 01/21/17 at 02:00 Morphine Sulfate (morphine) 2 mg Q4 PRN IV PAIN Last administered on 01/22/17 22:13; Admin Dose 2 MG; Start 01/20/17 at 19:00 Zolpidem Tartrate (Ambien) 5 mg HS PRN PO INSOMNIA Last administered on 21:43; Admin Dose 5 MG; Start 01/20/17 at 23:30 Oxycodone/ Acetaminophen 1 tab 1 tab Q6H PRN PO PAIN Last administered on 20:55; Admin Dose 1 TAB; Start 01/21/17 at 13:30 Cefepime HCl (Maxipime 1gm/50 ml (Pmx)) 50 ml @ 100 mls/hr Q24H IVPB Last administered on 01/23/17 13:47; Admin Dose 100 MLS/HR; Start 01/21/17 at 14:00 Polyethylene Glycol (Miralax) 17 gm DAILY PO Last administered on 01/21/17 15: 11; Admin Dose 17 GM; Start 01/21/17 at 15:00 Docusate Sodium (Colace) 100 mg BID PO Last administered on 01/23/17 09:33; Admin Dose 100 MG; Start 01/21/17 at 15:00 Quetiapine Fumarate 200 mg 200 mg QHS PO Last administered on 01/22/17 20:49; Admin Dose 200 MG; Start 01/21/17 at 21:00 Ferric Sodium Gluconate Complex/ Sodium Chloride (Ferrlecit/NS) 110 ml @ 110 mls/hr Q24H IVPB Last administered on 01/23/17 13:37; Admin Dose 110 MLS/HR; Start 01/23/17 at 11:00; Stop 01/27/17 at 11:59 Miscellaneous Information (*Rx Drug Level Order Reminder*) 1 ONCE ONCE XX ; Start 01/24/17 at 05:00; Stop 01/24/17 at 05:01 SCOT DÍAZ Jan 23, 2017 15:32
--- NOTE | 2017-01-23 21:30 | CONS ---
Date/Time of Note Date/Time of Note DATE: 01/23/17 TIME: 21:29 Assessment/Plan Assessment/Plan Chief Complaint/Hosp Course SUBJECTIVE: No acute changes. The patient is alert, lying comfortably in bed. He is afebrile. INDWELLINGS: Left chest PermCath. MICROBIOLOGY: Blood culture on admission grew gram-positive cocci in pairs and clusters. Urine culture negative. DIAGNOSTICS: Chest x-ray revealed right lower lobe patchy consolidation and small to moderate right-sided pleural effusion. CT of the brain revealed no acute intracranial pathology. ANTIMICROBIALS: The patient is on: 1. IV cefepime. 2. Vancomycin. PHYSICAL EXAMINATION: GENERAL: This is an obese, well-developed, middle-aged man who is alert, in no distress. HEENT: Head atraumatic, normocephalic. Sclerae anicteric. Buccal mucosa pink. NECK: Supple. CHEST: Rise symmetrical. Breath sounds diminished to bases. HEART: S1, S2. ABDOMEN: Soft, bowel sounds present. EXTREMITIES: Without cyanosis. ASSESSMENT: 1. Sepsis with acute encephalopathy, tachycardia, and hypoxemia==> resolving. 2. Gram-positive cocci bacteremia==> r/o line sepsis. 3. Pneumonia. 4. End-stage renal disease, hemodialysis dependent. 5. Diabetes. 6. Chronic obstructive pulmonary disease. 7. Left chest PermCath. PLAN: The patient remains stable. Pending repeat blood cultures with hemodialysis, pending final cultures. Continue antibiotics. F/u CXR DW staff Problems: Consultation Date/Type/Reason Admit Date/Time Jan 20, 2017 at 15:31 Initial Consult Date Type of Consultation: ID Exam/Review of Systems Vital Signs Vitals Vital Signs Date Time Temp Pulse Resp B/P Pulse Ox O2 Delivery O2 Flow Rate FiO2 01/23/17 20:14 98 01/23/17 19:45 98.3 20 150/94 96 01/20/17 18:30 Room Air Intake and Output 01/22/17 01/22/17 01/23/17 15:00 23:00 07:00 Intake Total 300 ml 500 ml 240 ml Output Total 3300 ml 350 ml Balance -3000 ml 500 ml -110 ml Results Result Diagram: 01/23/17 0625 01/23/17 0625 Results 24 hrs Laboratory Tests Test 01/23/17 06:25 01/23/17 08:35 01/23/17 13:36 01/23/17 17:47 White Blood Count 7.0 Red Blood Count 4.22 L Hemoglobin 12.4 L Hematocrit 38.4 L Mean Corpuscular Volume 91.0 Mean Corpuscular Hemoglobin 29.4 Mean Corpuscular Hemoglobin Concent 32.3 Red Cell Distribution Width 18.2 H Platelet Count 103 #L Mean Platelet Volume 11.8 H Neutrophils % 74.9 Lymphocytes % 10.5 L Monocytes % 8.0 Eosinophils % 5.6 Basophils % 0.6 Nucleated Red Blood Cells % 0.0 Neutrophils # 5.2 Lymphocytes # 0.7 L Monocytes # 0.6 Eosinophils # 0.4 Basophils # 0.0 Nucleated Red Blood Cells # 0.0 Sodium Level 139 Potassium Level 4.9 Chloride Level 101 Carbon Dioxide Level 21 Anion Gap 22 H Blood Urea Nitrogen 56 H Creatinine 10.40 H Glucose Level 70 Calcium Level 8.5 Phosphorus Level 7.8 H Magnesium Level 2.2 Bedside Glucose 87 93 80 Medications Medications Current Medications Aspirin (Halfprin) 81 mg DAILY PO Last administered on 01/23/17 09:33; Admin Dose 81 MG; Start 01/21/17 at 09:00 Atorvastatin Calcium (Lipitor) 20 mg HS PO Last administered on 01/22/17 20:48 ; Admin Dose 20 MG; Start 01/20/17 at 21:00 Gabapentin (Neurontin) 100 mg BID PO Last administered on 01/23/17 09:33; Admin Dose 100 MG; Start 01/20/17 at 21:00 Lisinopril (Zestril) 2.5 mg DAILY PO Last administered on 01/23/17 09:35; Admin Dose 2.5 MG; Start 01/21/17 at 09:00 Insulin Glargine (Lantus) 17 unit DAILY@20 SC Last administered on 01/22/17 21: 02; Admin Dose 17 UNIT; Start 01/20/17 at 20:00 Miscellaneous Information 1 ea NOTE XX ; Start 01/20/17 at 17:30 Glucose (Glutose) 15 gm Q15M PRN PO DECREASED GLUCOSE; Start 01/20/17 at 17:30 Glucose (Glutose) 22.5 gm Q15M PRN PO DECREASED GLUCOSE; Start 01/20/17 at 17:30 Dextrose (D50w Syringe) 25 ml Q15M PRN IV DECREASED GLUCOSE; Start 01/20/17 at 17:30 Dextrose (D50w Syringe) 50 ml Q15M PRN IV DECREASED GLUCOSE; Start 01/20/17 at 17:30 Glucagon (Glucagen) 1 mg Q15M PRN IM DECREASED GLUCOSE; Start 01/20/17 at 17:30 Glucose (Glutose) 15 gm Q15M PRN BUCCAL DECREASED GLUCOSE; Start 01/20/17 at 17: 30 Diagnostic Test (Pha) (Accu-Chek) 1 ea 02 XX ; Start 01/21/17 at 02:00 Morphine Sulfate (morphine) 2 mg Q4 PRN IV PAIN Last administered on 01/22/17 22:13; Admin Dose 2 MG; Start 01/20/17 at 19:00 Zolpidem Tartrate (Ambien) 5 mg HS PRN PO INSOMNIA Last administered on 21:43; Admin Dose 5 MG; Start 01/20/17 at 23:30 Oxycodone/ Acetaminophen 1 tab 1 tab Q6H PRN PO PAIN Last administered on 20:55; Admin Dose 1 TAB; Start 01/21/17 at 13:30 Cefepime HCl (Maxipime 1gm/50 ml (Pmx)) 50 ml @ 100 mls/hr Q24H IVPB Last administered on 01/23/17 13:47; Admin Dose 100 MLS/HR; Start 01/21/17 at 14:00 Polyethylene Glycol (Miralax) 17 gm DAILY PO Last administered on 01/21/17 15: 11; Admin Dose 17 GM; Start 01/21/17 at 15:00 Docusate Sodium (Colace) 100 mg BID PO Last administered on 01/23/17 09:33; Admin Dose 100 MG; Start 01/21/17 at 15:00 Quetiapine Fumarate 200 mg 200 mg QHS PO Last administered on 01/22/17 20:49; Admin Dose 200 MG; Start 01/21/17 at 21:00 Ferric Sodium Gluconate Complex/ Sodium Chloride (Ferrlecit/NS) 110 ml @ 110 mls/hr Q24H IVPB Last administered on 01/23/17 13:37; Admin Dose 110 MLS/HR; Start 01/23/17 at 11:00; Stop 01/27/17 at 11:59 Miscellaneous Information (*Rx Drug Level Order Reminder*) 1 ONCE ONCE XX ; Start 01/24/17 at 05:00; Stop 01/24/17 at 05:01 AUBRIE MORGAN NP Jan 23, 2017 21:30
[2017-01-23] MEDS: INSULIN GLARGINE [LANtus] 3 ML PEN SC SCH (21:55)
[2017-01-23] MEDS: OXYCODONE/ACETAMINOPHEN (10/325) TAB PO PRN (22:02)
[2017-01-23] MEDS: QUETIAPINE 100 MG TAB PO SCH (22:02)
[2017-01-23] MEDS: ATORVASTATIN 20 MG TAB PO SCH (22:02)
[2017-01-24] VITALS (21 sets, daily range): BP systolic 106–142; BP diastolic 46–84; PULSE 58–111; RESP 18–21
[2017-01-24] MEDS: ACCUCHECK AT 2AM (Patients on SS coverage) XX SCH (01:00)
[2017-01-24] MEDS: LEVOTHYROXINE 150 MCG TAB PO SCH (06:10)
[2017-01-24 07:05] LABS: ADD SCAN DIFF NO
[2017-01-24 07:14] LABS: ABNORMAL IP MESSAGE 1; BASOPHILS % 0.6 % (0.0-2.0); EOSINOPHILS # 0.4 10^3/ul (0.0-0.5); EOSINOPHILS % 6.8 % (0.0-7.0); HEMATOCRIT 38.7 % (42.0-52.0); HEMOGLOBIN 12.4 g/dl (14.0-18.0); LYMPHOCYTES # 0.8 10^3/ul (0.8-2.9); LYMPHOCYTES % 12.6 % (15.0-51.0); MEAN CORPUSCULAR VOLUME 90.4 fl (82.0-101.0); MONOCYTE # 0.6 10^3/ul (0.3-0.9); MONOCYTES % 8.8 % (0.0-11.0); NEUTROPHIL # 4.5 10^3/ul (1.6-7.5); NEUTROPHILS % 70.9 % (39.0-77.0); RED BLOOD COUNT 4.28 10^6/ul (4.70-6.10); RED CELL DISTRIBUTION WIDTH 17.8 % (11.5-14.5); WHITE BLOOD COUNT 6.4 10^3/ul (4.8-10.8)
[2017-01-24 07:18] LABS: PLATELET COUNT 130 10^3/UL (140-415)
[2017-01-24 07:46] LABS: CALCIUM 8.5 mg/dl (8.4-10.2); CREATININE 11.61 mg/dl (0.61-1.24); MAGNESIUM 2.3 mg/dl (1.7-2.5); PHOSPHORUS 9.5 mg/dl (2.5-4.9); POTASSIUM 5.7 mmol/L (3.5-5.1)
[2017-01-24] MEDS: INSULIN ASPART [NOVOLOG] 3 ML PEN SC SCH ×4 (07:55→20:22)
[2017-01-24] MEDS: POLYETHYLENE GLYCOL 17 GM PACKET PO SCH (08:50)
[2017-01-24] MEDS: DOCUSATE SODIUM 100 MG CAP PO SCH ×2 (08:50→20:22)
[2017-01-24] MEDS: ASPIRIN (EC) 81 MG TAB PO SCH (08:50)
[2017-01-24] MEDS: GABAPENTIN 100 MG CAP PO SCH ×2 (08:50→20:22)
[2017-01-24] MEDS: LISINOPRIL 5 MG TAB PO SCH (08:51)
--- NOTE | 2017-01-24 09:45 | PN ---
DATE: 01/24/2017 SUBJECTIVE: The patient is stable, no acute events overnight. No fevers, chills, nausea, vomiting. No shortness of breath. OBJECTIVE: VITAL SIGNS: Blood pressure is 126/81, respirations 18, pulse 103, temperature 98.0. HEENT: Head is normocephalic. NECK: Supple. HEART: Regular rate. LUNGS: Show diminished breath sounds at the bases. ABDOMEN: Soft, nontender to palpation. No rebound or guarding. EXTREMITIES: Negative for clubbing, cyanosis. No edema. DERMATOLOGIC: No rashes. MUSCULOSKELETAL: No joint effusions. NEUROLOGIC: No change in exam. MEDICATIONS: The patient's medications have been reviewed. LABORATORY DATA: Shows sodium 135, potassium 5.7, chloride 99, BUN 67, creatinine 11.61. White cou nt 6.4, hemoglobin 12.4, hematocrit 38.7, platelet count is 130. ASSESSMENT AND PLAN: 1. End-stage renal disease. Plan for dialysis today for 3 hours, 2K bath, calcium 2.5, ultrafiltra te as tolerated. 2. Hyperkalemia secondary to end-stage renal disease. We will continue dialysis on a low potassium bath. Continue renal diet. 3. Anemia. Continue to monitor hemoglobin and hematocrit levels. Continue IV iron. We will dio lanie to hold Epogen at this time. 4. Mineral bone disorder. Continue to monitor calcium and phosphorus levels. The patient remains hyperphosphatemic. We will increase Renagel to 1600 t.i.d. Continue dialysis . 5. Volume overload. Continue ultrafiltration dialysis. 6. Acute encephalopathy. Etiology is toxic metabolic, uremic. Continue hemodialysis. Continue to monitor. 7. Sepsis. Etiology is secondary to pneumonia, questionable line infection. The patient's initia l blood cultures were positive. Repeat blood cultures are pending. Continue current antibiotic the rapy. Follow up with infectious disease. 8. Diabetes. Continue Accu-Cheks and insulin sliding scale. 9. Hypothyroidism. Continue Synthroid. 10. Bipolar disorder. Continue medical management. 11. Thrombocytopenia. Continue to monitor. 12. Cardiomyopathy. Continue current medical management. Dictated By: KERI MEADE/NTS Conf#: [id number] DID#: [id number]
[2017-01-24] MEDS: SOD FERRIC GLUC COMPLX 125 MG in SOD CHLORIDE 0.9% 100 ML IVPB SCH ×2 (11:00→15:34)
[2017-01-24] MEDS: SEVELAMER 800 MG TAB PO SCH ×2 (11:50→18:03)
--- NOTE | 2017-01-24 12:45 | CONS ---
Date/Time of Note Date/Time of Note DATE: 01/24/17 TIME: 12:44 Assessment/Plan Assessment/Plan Chief Complaint/Hosp Course SUBJECTIVE: No acute changes. The patient is alert, in HD, no fevers. INDWELLINGS: Left chest PermCath. MICROBIOLOGY: Blood culture on admission grew gram-positive cocci in pairs and clusters. Urine culture negative. DIAGNOSTICS: Chest x-ray revealed right lower lobe patchy consolidation and small to moderate right-sided pleural effusion. CT of the brain revealed no acute intracranial pathology. ANTIMICROBIALS: 1. IV cefepime. 2. Vancomycin. PHYSICAL EXAMINATION: GENERAL: This is an obese, well-developed, middle-aged man who is alert, in no distress. HEENT: Head atraumatic, normocephalic. Sclerae anicteric. Buccal mucosa pink. NECK: Supple. CHEST: Rise symmetrical. Breath sounds diminished to bases. HEART: S1, S2. ABDOMEN: Soft, bowel sounds present. EXTREMITIES: Without cyanosis. ASSESSMENT: 1. Sepsis with acute encephalopathy, tachycardia, and hypoxemia==> resolving. 2. Gram-positive cocci bacteremia==> r/o line sepsis. 3. Pneumonia. 4. End-stage renal disease, hemodialysis dependent. 5. Diabetes. 6. Chronic obstructive pulmonary disease. 7. Left chest PermCath. PLAN: The patient remains stable. Pending repeat blood cultures with hemodialysis, pending final cultures. Continue antibiotics. [facility] staff Problems: Consultation Date/Type/Reason Admit Date/Time Jan 20, 2017 at 15:31 Type of Consultation: ID Exam/Review of Systems Vital Signs Vitals Vital Signs Date Time Temp Pulse Resp B/P Pulse Ox O2 Delivery O2 Flow Rate FiO2 01/24/17 12:38 111 01/24/17 11:14 98.0 18 114/77 98 01/20/17 18:30 Room Air Intake and Output 01/23/17 01/23/17 01/24/17 15:00 23:00 07:00 Intake Total 350 ml 460 ml Balance 350 ml 460 ml Results Result Diagram: 01/24/17 0532 01/24/17 0532 Results 24 hrs Laboratory Tests Test 01/23/17 13:36 01/23/17 17:47 01/23/17 21:34 01/24/17 05:32 Bedside Glucose 93 80 127 White Blood Count 6.4 Red Blood Count 4.28 L Hemoglobin 12.4 L Hematocrit 38.7 L Mean Corpuscular Volume 90.4 Mean Corpuscular Hemoglobin 29.0 Mean Corpuscular Hemoglobin Concent 32.0 Red Cell Distribution Width 17.8 H Platelet Count 130 #L Mean Platelet Volume Neutrophils % 70.9 Lymphocytes % 12.6 L Monocytes % 8.8 Eosinophils % 6.8 Basophils % 0.6 Nucleated Red Blood Cells % 0.0 Neutrophils # 4.5 Lymphocytes # 0.8 Monocytes # 0.6 Eosinophils # 0.4 Basophils # 0.0 Nucleated Red Blood Cells # 0.0 Sodium Level 135 Potassium Level 5.7 H Chloride Level 99 Carbon Dioxide Level 19 L Anion Gap 23 H Blood Urea Nitrogen 67 H Creatinine 11.61 H Glucose Level 68 L Calcium Level 8.5 Phosphorus Level 9.5 H Magnesium Level 2.3 Random Vancomycin Level 18.6 Test 01/24/17 07:59 01/24/17 12:11 Bedside Glucose 91 89 Medications Medications Current Medications Aspirin (Halfprin) 81 mg DAILY PO Last administered on 01/24/17 08:50; Admin Dose 81 MG; Start 01/21/17 at 09:00 Atorvastatin Calcium (Lipitor) 20 mg HS PO Last administered on 01/23/17 22:02 ; Admin Dose 20 MG; Start 01/20/17 at 21:00 Gabapentin (Neurontin) 100 mg BID PO Last administered on 01/24/17 08:50; Admin Dose 100 MG; Start 01/20/17 at 21:00 Lisinopril (Zestril) 2.5 mg DAILY PO Last administered on 01/23/17 09:35; Admin Dose 2.5 MG; Start 01/21/17 at 09:00 Insulin Glargine (Lantus) 17 unit DAILY@20 SC Last administered on 01/23/17 21: 55; Admin Dose 17 UNIT; Start 01/20/17 at 20:00 Miscellaneous Information 1 ea NOTE XX ; Start 01/20/17 at 17:30 Glucose (Glutose) 15 gm Q15M PRN PO DECREASED GLUCOSE; Start 01/20/17 at 17:30 Glucose (Glutose) 22.5 gm Q15M PRN PO DECREASED GLUCOSE; Start 01/20/17 at 17:30 Dextrose (D50w Syringe) 25 ml Q15M PRN IV DECREASED GLUCOSE; Start 01/20/17 at 17:30 Dextrose (D50w Syringe) 50 ml Q15M PRN IV DECREASED GLUCOSE; Start 01/20/17 at 17:30 Glucagon (Glucagen) 1 mg Q15M PRN IM DECREASED GLUCOSE; Start 01/20/17 at 17:30 Glucose (Glutose) 15 gm Q15M PRN BUCCAL DECREASED GLUCOSE; Start 01/20/17 at 17: 30 Diagnostic Test (Pha) (Accu-Chek) 1 ea 02 XX ; Start 01/21/17 at 02:00 Morphine Sulfate (morphine) 2 mg Q4 PRN IV PAIN Last administered on 01/22/17 22:13; Admin Dose 2 MG; Start 01/20/17 at 19:00 Zolpidem Tartrate (Ambien) 5 mg HS PRN PO INSOMNIA Last administered on 21:43; Admin Dose 5 MG; Start 01/20/17 at 23:30 Oxycodone/ Acetaminophen 1 tab 1 tab Q6H PRN PO PAIN Last administered on 22:02; Admin Dose 1 TAB; Start 01/21/17 at 13:30 Cefepime HCl (Maxipime 1gm/50 ml (Pmx)) 50 ml @ 100 mls/hr Q24H IVPB Last administered on 01/23/17 13:47; Admin Dose 100 MLS/HR; Start 01/21/17 at 14:00 Polyethylene Glycol (Miralax) 17 gm DAILY PO Last administered on 01/24/17 08: 50; Admin Dose 17 GM; Start 01/21/17 at 15:00 Docusate Sodium (Colace) 100 mg BID PO Last administered on 01/24/17 08:50; Admin Dose 100 MG; Start 01/21/17 at 15:00 Quetiapine Fumarate 200 mg 200 mg QHS PO Last administered on 01/23/17 22:02; Admin Dose 200 MG; Start 01/21/17 at 21:00 Ferric Sodium Gluconate Complex/ Sodium Chloride (Ferrlecit/NS) 110 ml @ 110 mls/hr Q24H IVPB Last administered on 01/23/17 13:37; Admin Dose 110 MLS/HR; Start 01/23/17 at 11:00; Stop 01/27/17 at 11:59 AUBRIE MORGAN NP Jan 24, 2017 12:45
[2017-01-24] MEDS: CEFEPIME 1GM/50 ML (PMX) 50 ML IVPB SCH (14:53)
[2017-01-24] MEDS: morphine 2 MG INJ IV PRN ×2 (15:26→23:24)
[2017-01-24] MEDS: OXYCODONE/ACETAMINOPHEN (10/325) TAB PO PRN (16:48)
--- NOTE | 2017-01-24 17:56 | PN ---
Date/Time of Note Date/Time of Note DATE: 01/24/17 TIME: 17:55 Assessment/Plan VTE Prophylaxis VTE Prophylaxis Intervention: heparin Lines/Catheters IV Catheter Type (from Nrsg): Saline Lock Assessment/Plan Chief Complaint/Hosp Course 1. Acute metabolic encephalopathy secondary to sepsis from pneumonia and/or Uremia 2. Right-sided pneumonia with right-sided pleural effusion 3. Sepsis with bacteremia likely secondary to right-sided pneumonia versus line sepsis Patient has had 2 prior episodes of line sepsis 4. End-stage renal disease on hemodialysis 5. Chronic back and LE pain 6. Hyperkalemia secondary to renal disease 7. Chronic normocytic normochromic anemia of renal disease 8. Cardiomyopathy with last known EF of 24% for which patient refused AICD 9. Hypothyroidism 10. Diabetes mellitus type 2 11. Chronic depression 12. Thrombocytopenia probably secondary to sepsis rule out iron deficiency 13. Non compliance PLAN: * Hypokalemia has improved * For his positive blood cultures, will continue current antibiotics, ID consult appreciated, follow-up on cultures obtained today during dialysis * Pain control, obtain records from the [place] to see what he is on at home * We will continue to beauty counselor on the need for compliance with diabetic regimen and doctor's instructions well in-house * Discontinued metformin in this patient with end-stage renal disease * Gently restart his antidepressants, and hold for the first sign of alteration in mentation * Physical therapy eval in view of recent recurrent falls to this is likely secondary to sepsis * Continue hemodialysis per renal * Further interventions per clinical course Prophylaxis with heparin and PPI. Problems: Subjective 24 Hr Interval Summary Constitutional: no complaints Exam/Review of Systems Vital Signs Vitals Vital Signs Date Time Temp Pulse Resp B/P Pulse Ox O2 Delivery O2 Flow Rate FiO2 01/24/17 17:01 109 01/24/17 15:36 98.4 18 106/70 99 01/20/17 18:30 Room Air Intake and Output 01/23/17 01/23/17 01/24/17 15:00 23:00 07:00 Intake Total 350 ml 460 ml Balance 350 ml 460 ml Exam Constitutional: alert Respiratory: clear to auscultation Cardiovascular: regular rate and rhythm Gastrointestinal: soft, No distended Musculoskeletal: nl extremities to inspection Results Result Diagram: 01/24/17 0532 01/24/17 0532 Results 24 hrs Laboratory Tests Test 01/23/17 21:34 01/24/17 05:32 01/24/17 07:59 01/24/17 12:11 Bedside Glucose 127 91 89 White Blood Count 6.4 Red Blood Count 4.28 L Hemoglobin 12.4 L Hematocrit 38.7 L Mean Corpuscular Volume 90.4 Mean Corpuscular Hemoglobin 29.0 Mean Corpuscular Hemoglobin Concent 32.0 Red Cell Distribution Width 17.8 H Platelet Count 130 #L Mean Platelet Volume Neutrophils % 70.9 Lymphocytes % 12.6 L Monocytes % 8.8 Eosinophils % 6.8 Basophils % 0.6 Nucleated Red Blood Cells % 0.0 Neutrophils # 4.5 Lymphocytes # 0.8 Monocytes # 0.6 Eosinophils # 0.4 Basophils # 0.0 Nucleated Red Blood Cells # 0.0 Sodium Level 135 Potassium Level 5.7 H Chloride Level 99 Carbon Dioxide Level 19 L Anion Gap 23 H Blood Urea Nitrogen 67 H Creatinine 11.61 H Glucose Level 68 L Calcium Level 8.5 Phosphorus Level 9.5 H Magnesium Level 2.3 Random Vancomycin Level 18.6 Medications Medications Current Medications Aspirin (Halfprin) 81 mg DAILY PO Last administered on 01/24/17 08:50; Admin Dose 81 MG; Start 01/21/17 at 09:00 Atorvastatin Calcium (Lipitor) 20 mg HS PO Last administered on 01/23/17 22:02 ; Admin Dose 20 MG; Start 01/20/17 at 21:00 Gabapentin (Neurontin) 100 mg BID PO Last administered on 01/24/17 08:50; Admin Dose 100 MG; Start 01/20/17 at 21:00 Lisinopril (Zestril) 2.5 mg DAILY PO Last administered on 01/23/17 09:35; Admin Dose 2.5 MG; Start 01/21/17 at 09:00 Insulin Glargine (Lantus) 17 unit DAILY@20 SC Last administered on 01/23/17 21: 55; Admin Dose 17 UNIT; Start 01/20/17 at 20:00 Miscellaneous Information 1 ea NOTE XX ; Start 01/20/17 at 17:30 Glucose (Glutose) 15 gm Q15M PRN PO DECREASED GLUCOSE; Start 01/20/17 at 17:30 Glucose (Glutose) 22.5 gm Q15M PRN PO DECREASED GLUCOSE; Start 01/20/17 at 17:30 Dextrose (D50w Syringe) 25 ml Q15M PRN IV DECREASED GLUCOSE; Start 01/20/17 at 17:30 Dextrose (D50w Syringe) 50 ml Q15M PRN IV DECREASED GLUCOSE; Start 01/20/17 at 17:30 Glucagon (Glucagen) 1 mg Q15M PRN IM DECREASED GLUCOSE; Start 01/20/17 at 17:30 Glucose (Glutose) 15 gm Q15M PRN BUCCAL DECREASED GLUCOSE; Start 01/20/17 at 17: 30 Diagnostic Test (Pha) (Accu-Chek) 1 ea 02 XX ; Start 01/21/17 at 02:00 Morphine Sulfate (morphine) 2 mg Q4 PRN IV PAIN Last administered on 01/24/17 15:26; Admin Dose 2 MG; Start 01/20/17 at 19:00 Zolpidem Tartrate (Ambien) 5 mg HS PRN PO INSOMNIA Last administered on 21:43; Admin Dose 5 MG; Start 01/20/17 at 23:30 Oxycodone/ Acetaminophen 1 tab 1 tab Q6H PRN PO PAIN Last administered on 16:48; Admin Dose 1 TAB; Start 01/21/17 at 13:30 Cefepime HCl (Maxipime 1gm/50 ml (Pmx)) 50 ml @ 100 mls/hr Q24H IVPB Last administered on 01/24/17 14:53; Admin Dose 100 MLS/HR; Start 01/21/17 at 14:00 Polyethylene Glycol (Miralax) 17 gm DAILY PO Last administered on 01/24/17 08: 50; Admin Dose 17 GM; Start 01/21/17 at 15:00 Docusate Sodium (Colace) 100 mg BID PO Last administered on 01/24/17 08:50; Admin Dose 100 MG; Start 01/21/17 at 15:00 Quetiapine Fumarate 200 mg 200 mg QHS PO Last administered on 01/23/17 22:02; Admin Dose 200 MG; Start 01/21/17 at 21:00 Ferric Sodium Gluconate Complex 125 mg/Sodium Chloride 110 ml @ 110 mls/hr Q24H IVPB Last administered on 01/24/17 15:34; Admin Dose 110 MLS/HR; Start 01/23/17 at 11:00; Stop 01/27/17 at 11:59 Vancomycin HCl (Vancocin) 250 ml @ 125 mls/hr ONCE ONCE IVPB ; Start 01/24/17 at 22:00; Stop 01/24/17 at 23:59 SCOT DÍAZ Jan 24, 2017 17:56
[2017-01-24] MEDS: QUETIAPINE 100 MG TAB PO SCH (20:22)
[2017-01-24] MEDS: ATORVASTATIN 20 MG TAB PO SCH (20:22)
[2017-01-24] MEDS: INSULIN GLARGINE [LANtus] 3 ML PEN SC SCH (20:28)
[2017-01-24] MEDS: ZOLPIDEM 5 MG TAB PO PRN (20:57)
[2017-01-24] MEDS ORDERED: VANCOMYCIN 1 GM in NS 250 ML IVPB ONE (22:00)
[2017-01-24] MEDS: ONDANSETRON 4 MG INJ IV PRN (23:51)
[2017-01-25] VITALS (21 sets, daily range): BP systolic 79–138; BP diastolic 36–87; PULSE 61–110; RESP 18–20
[2017-01-25] MEDS: OXYCODONE/ACETAMINOPHEN (10/325) TAB PO PRN ×2 (00:32→10:05)
[2017-01-25] MEDS: ACCUCHECK AT 2AM (Patients on SS coverage) XX SCH (02:34)
[2017-01-25] MEDS: LEVOTHYROXINE 150 MCG TAB PO SCH (06:39)
[2017-01-25 07:40] LABS: CALCIUM 9.1 mg/dl (8.4-10.2); CREATININE 10.03 mg/dl (0.61-1.24); MAGNESIUM 2.3 mg/dl (1.7-2.5); PHOSPHORUS 8.8 mg/dl (2.5-4.9)
[2017-01-25 07:43] LABS: POTASSIUM 5.9 mmol/L (3.5-5.1)
[2017-01-25] MEDS: INSULIN ASPART [NOVOLOG] 3 ML PEN SC SCH ×4 (07:55→20:51)
[2017-01-25] MEDS: morphine 2 MG INJ IV PRN ×2 (07:57→14:31)
[2017-01-25] MEDS: SEVELAMER 800 MG TAB PO SCH ×3 (07:57→17:39)
[2017-01-25] MEDS: LISINOPRIL 5 MG TAB PO SCH (08:04)
[2017-01-25] MEDS: POLYETHYLENE GLYCOL 17 GM PACKET PO SCH (08:04)
[2017-01-25] MEDS: DOCUSATE SODIUM 100 MG CAP PO SCH ×2 (08:04→20:51)
[2017-01-25] MEDS: ASPIRIN (EC) 81 MG TAB PO SCH (08:04)
[2017-01-25] MEDS: GABAPENTIN 100 MG CAP PO SCH ×2 (08:04→20:51)
--- NOTE | 2017-01-25 09:51 | PN ---
DATE: 01/25/2017 SUBJECTIVE: The patient is stable, had hemodialysis yesterday. No other acute events noted. No he moptysis, hematemesis, or hematochezia. OBJECTIVE: VITAL SIGNS: Blood pressure is 129/83, respirations 18, pulse 99, temperature 98.3. HEENT: Head is normocephalic. NECK: Supple. HEART: Regular rate. LUNGS: Show diminished breath sounds at the base. ABDOMEN: Soft, nontender to palpation. No rebound or guarding. EXTREMITIES: Negative for clubbing, cyanosis, no edema. DERMATOLOGIC: No rashes. MUSCULOSKELETAL: No joint effusions. NEUROLOGIC: No change in exam. MEDICATIONS: The patient's medications have been reviewed. LABORATORY DATA: Shows sodium 137, potassium 5.9, chloride 98, BUN 54, creatinine 2.03. ASSESSMENT AND PLAN: 1. End-stage renal disease. The patient had hemodialysis yesterday. However, the patient remains hyperkalemic, this may be due to catheter malfunction. Will have dialysis again today for 3 hours, 2K bath, calcium 2.5. 2. Hyperkalemia secondary to end-stage renal disease. The patient had hemodialysis yesterday, alth ough still remains hyperkalemic. Concerning for possible catheter malfunction, recirculation. Will have dialysis again today on a 2 low potassium bath. 3. Anemia. Continue to monitor hemoglobin and hematocrit levels. Continue IV iron. 4. Mineral bone disorder. Continue to monitor calcium and phosphorus levels. Continue phos binder s. 5. Volume overload, improving. Continue ultrafiltration with dialysis. 6. Acute encephalopathy, etiology is toxic metabolic, possibly uremic. Continue to monitor. 7. Access. The patient has PermCath. Will have dialysis again today. If the patient does not alejandro w appropriate adequacy with hemodialysis, will likely have catheter exchange. 8. Sepsis. The patient is clinically improving. Continue current antibiotic regimen. 9. Diabetes. Continue Accu-Cheks and insulin sliding scale. 10. Hypertensive. Continue Synthroid. 11. Bipolar disorder. Continue medical management. 12. Cardiomyopathy. Continue current treatment plan. Dictated By: KERI MEADE/NTS Conf#: [id number] DID#: [id number]
[2017-01-25] MEDS: SOD FERRIC GLUC COMPLX 125 MG in SOD CHLORIDE 0.9% 100 ML IVPB SCH (10:05)
[2017-01-25] MEDS: CEFEPIME 1GM/50 ML (PMX) 50 ML IVPB SCH (14:27)
--- NOTE | 2017-01-25 14:48 | PN ---
Date/Time of Note Date/Time of Note DATE: 01/25/17 TIME: 14:48 Assessment/Plan VTE Prophylaxis VTE Prophylaxis Intervention: heparin Lines/Catheters IV Catheter Type (from Nrsg): Saline Lock Assessment/Plan Chief Complaint/Hosp Course 1. Acute metabolic encephalopathy secondary to sepsis from pneumonia and/or Uremia 2. Right-sided pneumonia with right-sided pleural effusion 3. Sepsis with bacteremia likely secondary to right-sided pneumonia versus line sepsis Patient has had 2 prior episodes of line sepsis 4. End-stage renal disease on hemodialysis 5. Chronic back and LE pain 6. Hyperkalemia secondary to renal disease 7. Chronic normocytic normochromic anemia of renal disease 8. Cardiomyopathy with last known EF of 24% for which patient refused AICD 9. Hypothyroidism 10. Diabetes mellitus type 2 11. Chronic depression 12. Thrombocytopenia probably secondary to sepsis rule out iron deficiency 13. Non compliance PLAN: * Hypokalemia has improved * For his positive blood cultures, will continue current antibiotics, ID consult appreciated, follow-up on cultures obtained yesterday during dialysis * Pain control, obtain records from the [place] to see what he is on at home * We will continue to recreational counselor on the need for compliance with diabetic regimen and doctor's instructions well in-house * Discontinued metformin in this patient with end-stage renal disease * Gently restart his antidepressants, and hold for the first sign of alteration in mentation * Physical therapy eval in view of recent recurrent falls to this is likely secondary to sepsis * Continue hemodialysis per renal * Further interventions per clinical course Prophylaxis with heparin and PPI. Problems: Subjective 24 Hr Interval Summary Neurologic: other (Stuttering) Exam/Review of Systems Vital Signs Vitals Vital Signs Date Time Temp Pulse Resp B/P Pulse Ox O2 Delivery O2 Flow Rate FiO2 01/25/17 13:35 101 12 01/25/17 11:26 98.4 91/51 94 Intake and Output 01/24/17 01/24/17 01/25/17 15:00 23:00 07:00 Intake Total 200 ml 300 ml 400 ml Output Total 2200 ml 2000 ml Balance -2000 ml -1700 ml 400 ml Exam Constitutional: alert Respiratory: clear to auscultation Cardiovascular: regular rate and rhythm Gastrointestinal: soft, No distended Musculoskeletal: nl extremities to inspection Results Result Diagram: 01/24/17 0532 01/25/17 0610 Results 24 hrs Laboratory Tests Test 01/24/17 18:02 01/24/17 20:19 01/25/17 02:05 01/25/17 06:10 Bedside Glucose 90 89 82 Sodium Level 137 Potassium Level 5.9 H Chloride Level 98 Carbon Dioxide Level 24 Anion Gap 21 H Blood Urea Nitrogen 54 H Creatinine 10.03 H Glucose Level 74 Calcium Level 9.1 Phosphorus Level 8.8 H Magnesium Level 2.3 Test 01/25/17 08:02 01/25/17 11:55 Bedside Glucose 125 106 Medications Medications Current Medications Aspirin (Halfprin) 81 mg DAILY PO Last administered on 01/25/17 08:04; Admin Dose 81 MG; Start 01/21/17 at 09:00 Atorvastatin Calcium (Lipitor) 20 mg HS PO Last administered on 01/24/17 20:22 ; Admin Dose 20 MG; Start 01/20/17 at 21:00 Gabapentin (Neurontin) 100 mg BID PO Last administered on 01/25/17 08:04; Admin Dose 100 MG; Start 01/20/17 at 21:00 Lisinopril (Zestril) 2.5 mg DAILY PO Last administered on 01/23/17 09:35; Admin Dose 2.5 MG; Start 01/21/17 at 09:00 Insulin Glargine (Lantus) 17 unit DAILY@20 SC Last administered on 01/24/17 20: 28; Admin Dose 17 UNIT; Start 01/20/17 at 20:00 Miscellaneous Information 1 ea NOTE XX ; Start 01/20/17 at 17:30 Glucose (Glutose) 15 gm Q15M PRN PO DECREASED GLUCOSE; Start 01/20/17 at 17:30 Glucose (Glutose) 22.5 gm Q15M PRN PO DECREASED GLUCOSE; Start 01/20/17 at 17:30 Dextrose (D50w Syringe) 25 ml Q15M PRN IV DECREASED GLUCOSE; Start 01/20/17 at 17:30 Dextrose (D50w Syringe) 50 ml Q15M PRN IV DECREASED GLUCOSE; Start 01/20/17 at 17:30 Glucagon (Glucagen) 1 mg Q15M PRN IM DECREASED GLUCOSE; Start 01/20/17 at 17:30 Glucose (Glutose) 15 gm Q15M PRN BUCCAL DECREASED GLUCOSE; Start 01/20/17 at 17: 30 Diagnostic Test (Pha) (Accu-Chek) 1 ea 02 XX Last administered on 01/25/17 02: 34; Admin Dose 1 EA; Start 01/21/17 at 02:00 Morphine Sulfate (morphine) 2 mg Q4 PRN IV PAIN Last administered on 01/25/17 14:31; Admin Dose 2 MG; Start 01/20/17 at 19:00 Zolpidem Tartrate (Ambien) 5 mg HS PRN PO INSOMNIA Last administered on 20:57; Admin Dose 5 MG; Start 01/20/17 at 23:30 Oxycodone/ Acetaminophen 1 tab 1 tab Q6H PRN PO PAIN Last administered on 10:05; Admin Dose 1 TAB; Start 01/21/17 at 13:30 Cefepime HCl (Maxipime 1gm/50 ml (Pmx)) 50 ml @ 100 mls/hr Q24H IVPB Last administered on 01/25/17 14:27; Admin Dose 100 MLS/HR; Start 01/21/17 at 14:00 Polyethylene Glycol (Miralax) 17 gm DAILY PO Last administered on 01/25/17 08: 04; Admin Dose 17 GM; Start 01/21/17 at 15:00 Docusate Sodium (Colace) 100 mg BID PO Last administered on 01/25/17 08:04; Admin Dose 100 MG; Start 01/21/17 at 15:00 Quetiapine Fumarate 200 mg 200 mg QHS PO Last administered on 01/24/17 20:22; Admin Dose 200 MG; Start 01/21/17 at 21:00 Ferric Sodium Gluconate Complex/ Sodium Chloride (Ferrlecit/NS) 110 ml @ 110 mls/hr Q24H IVPB Last administered on 01/25/17 10:05; Admin Dose 110 MLS/HR; Start 01/23/17 at 11:00; Stop 01/27/17 at 11:59 Ondansetron HCl (Zofran Inj) 4 mg Q6H PRN IV NAUSEA AND/OR VOMITING Last administered on 01/24/17 23:51; Admin Dose 4 MG; Start 01/24/17 at 23:45 SCOT DÍAZ Jan 25, 2017 14:48
--- NOTE | 2017-01-25 16:19 | CONS ---
Date/Time of Note Date/Time of Note DATE: 01/25/17 TIME: 16:18 Assessment/Plan Assessment/Plan Chief Complaint/Hosp Course SUBJECTIVE: No acute changes. The patient is alert, wants to go home, nad, no fevers. INDWELLINGS: Left chest PermCath. MICROBIOLOGY: Blood culture on admission grew gram-positive cocci in pairs and clusters. Urine culture negative. DIAGNOSTICS: Chest x-ray revealed right lower lobe patchy consolidation and small to moderate right-sided pleural effusion. CT of the brain revealed no acute intracranial pathology. ANTIMICROBIALS: 1. IV cefepime. 2. Vancomycin. PHYSICAL EXAMINATION: GENERAL: This is an obese, well-developed, middle-aged man who is alert, in no distress. HEENT: Head atraumatic, normocephalic. Sclerae anicteric. Buccal mucosa pink. NECK: Supple. CHEST: Rise symmetrical. Breath sounds diminished to bases. HEART: S1, S2. ABDOMEN: Soft, bowel sounds present. EXTREMITIES: Without cyanosis. ASSESSMENT: 1. Sepsis with acute encephalopathy, tachycardia, and hypoxemia==> resolving. 2. Staph bacteremia==> r/o line sepsis. 3. Pneumonia. 4. End-stage renal disease, hemodialysis dependent. 5. Diabetes. 6. Chronic obstructive pulmonary disease. 7. Left chest PermCath. PLAN: The patient remains stable. Pending repeat blood cultures with hemodialysis. Continue antibiotics. [facility] staff Problems: Consultation Date/Type/Reason Admit Date/Time Jan 20, 2017 at 15:31 Type of Consultation: ID Exam/Review of Systems Vital Signs Vitals Vital Signs Date Time Temp Pulse Resp B/P Pulse Ox O2 Delivery O2 Flow Rate FiO2 01/25/17 15:35 98.0 88 19 125/87 93 Intake and Output 01/24/17 01/24/17 01/25/17 15:00 23:00 07:00 Intake Total 200 ml 300 ml 400 ml Output Total 2200 ml 2000 ml Balance -2000 ml -1700 ml 400 ml Results Result Diagram: 01/24/17 0532 01/25/17 0610 Results 24 hrs Laboratory Tests Test 01/24/17 18:02 01/24/17 20:19 01/25/17 02:05 01/25/17 06:10 Bedside Glucose 90 89 82 Sodium Level 137 Potassium Level 5.9 H Chloride Level 98 Carbon Dioxide Level 24 Anion Gap 21 H Blood Urea Nitrogen 54 H Creatinine 10.03 H Glucose Level 74 Calcium Level 9.1 Phosphorus Level 8.8 H Magnesium Level 2.3 Test 01/25/17 08:02 01/25/17 11:55 Bedside Glucose 125 106 Medications Medications Current Medications Aspirin (Halfprin) 81 mg DAILY PO Last administered on 01/25/17 08:04; Admin Dose 81 MG; Start 01/21/17 at 09:00 Atorvastatin Calcium (Lipitor) 20 mg HS PO Last administered on 01/24/17 20:22 ; Admin Dose 20 MG; Start 01/20/17 at 21:00 Gabapentin (Neurontin) 100 mg BID PO Last administered on 01/25/17 08:04; Admin Dose 100 MG; Start 01/20/17 at 21:00 Lisinopril (Zestril) 2.5 mg DAILY PO Last administered on 01/23/17 09:35; Admin Dose 2.5 MG; Start 01/21/17 at 09:00 Insulin Glargine (Lantus) 17 unit DAILY@20 SC Last administered on 01/24/17 20: 28; Admin Dose 17 UNIT; Start 01/20/17 at 20:00 Miscellaneous Information 1 ea NOTE XX ; Start 01/20/17 at 17:30 Glucose (Glutose) 15 gm Q15M PRN PO DECREASED GLUCOSE; Start 01/20/17 at 17:30 Glucose (Glutose) 22.5 gm Q15M PRN PO DECREASED GLUCOSE; Start 01/20/17 at 17:30 Dextrose (D50w Syringe) 25 ml Q15M PRN IV DECREASED GLUCOSE; Start 01/20/17 at 17:30 Dextrose (D50w Syringe) 50 ml Q15M PRN IV DECREASED GLUCOSE; Start 01/20/17 at 17:30 Glucagon (Glucagen) 1 mg Q15M PRN IM DECREASED GLUCOSE; Start 01/20/17 at 17:30 Glucose (Glutose) 15 gm Q15M PRN BUCCAL DECREASED GLUCOSE; Start 01/20/17 at 17: 30 Diagnostic Test (Pha) (Accu-Chek) 1 ea 02 XX Last administered on 01/25/17 02: 34; Admin Dose 1 EA; Start 01/21/17 at 02:00 Morphine Sulfate (morphine) 2 mg Q4 PRN IV PAIN Last administered on 01/25/17 14:31; Admin Dose 2 MG; Start 01/20/17 at 19:00 Zolpidem Tartrate (Ambien) 5 mg HS PRN PO INSOMNIA Last administered on 20:57; Admin Dose 5 MG; Start 01/20/17 at 23:30 Oxycodone/ Acetaminophen 1 tab 1 tab Q6H PRN PO PAIN Last administered on 10:05; Admin Dose 1 TAB; Start 01/21/17 at 13:30 Cefepime HCl (Maxipime 1gm/50 ml (Pmx)) 50 ml @ 100 mls/hr Q24H IVPB Last administered on 01/25/17 14:27; Admin Dose 100 MLS/HR; Start 01/21/17 at 14:00 Polyethylene Glycol (Miralax) 17 gm DAILY PO Last administered on 01/25/17 08: 04; Admin Dose 17 GM; Start 01/21/17 at 15:00 Docusate Sodium (Colace) 100 mg BID PO Last administered on 01/25/17 08:04; Admin Dose 100 MG; Start 01/21/17 at 15:00 Quetiapine Fumarate 200 mg 200 mg QHS PO Last administered on 01/24/17 20:22; Admin Dose 200 MG; Start 01/21/17 at 21:00 Ferric Sodium Gluconate Complex/ Sodium Chloride (Ferrlecit/NS) 110 ml @ 110 mls/hr Q24H IVPB Last administered on 01/25/17 10:05; Admin Dose 110 MLS/HR; Start 01/23/17 at 11:00; Stop 01/27/17 at 11:59 Ondansetron HCl (Zofran Inj) 4 mg Q6H PRN IV NAUSEA AND/OR VOMITING Last administered on 01/24/17 23:51; Admin Dose 4 MG; Start 01/24/17 at 23:45 AUBRIE MORGAN NP Jan 25, 2017 16:19
[2017-01-25] MEDS: ONDANSETRON 4 MG INJ IV PRN (17:54)
[2017-01-25 18:54] LABS: CALCIUM 9.2 mg/dl (8.4-10.2); CREATININE 8.18 mg/dl (0.61-1.24); POTASSIUM 5.2 mmol/L (3.5-5.1)
[2017-01-25] MEDS: QUETIAPINE 100 MG TAB PO SCH (20:51)
[2017-01-25] MEDS: ATORVASTATIN 20 MG TAB PO SCH (20:51)
[2017-01-25] MEDS: INSULIN GLARGINE [LANtus] 3 ML PEN SC SCH (20:53)
[2017-01-25] MEDS: ZOLPIDEM 5 MG TAB PO PRN (21:01)
[2017-01-26] VITALS (15 sets, daily range): BP systolic 90–142; BP diastolic 49–90; PULSE 75–117; RESP 16–21
[2017-01-26] MEDS: ACCUCHECK AT 2AM (Patients on SS coverage) XX SCH (02:00)
[2017-01-26] MEDS: LEVOTHYROXINE 150 MCG TAB PO SCH (07:33)
[2017-01-26] MEDS: INSULIN ASPART [NOVOLOG] 3 ML PEN SC SCH ×4 (07:55→21:00)
--- NOTE | 2017-01-26 08:26 | PN ---
Date/Time of Note Date/Time of Note DATE: 01/26/17 TIME: 08:22 Assessment/Plan VTE Prophylaxis VTE Prophylaxis Intervention: ambulation Lines/Catheters IV C[facility]from [facility]): Saline Lock Assessment/Plan Assessment/Plan 1. End-stage renal disease. The patient had hemodialysis yesterday. However, the patient remains hyperkalemic, although improving. Will have dialysis again today for 3 hours, 2K bath, calcium 2.5. 2. Hyperkalemia secondary to end-stage renal disease. The patient had hemodialysis yesterday, although still remains hyperkalemic. Will have dialysis again today on a 2 low potassium bath. 3. Anemia. Continue to monitor hemoglobin and hematocrit levels. Continue IV iron. 4. Mineral bone disorder. Continue to monitor calcium and phosphorus levels. Continue phos binders. 5. Volume overload, improving. Continue ultrafiltration with dialysis. 6. Acute encephalopathy, etiology is toxic metabolic, possibly uremic. Continue to monitor. 7. Access. The patient has PermCath. Will have dialysis again today. No noted problems with catheter function. Will check kt/v of next HD 8. Sepsis. The patient is clinically improving. Continue current antibiotic regimen. 9. Diabetes. Continue Accu-Cheks and insulin sliding scale. 10. Hypertensive. Continue Synthroid. 11. Bipolar disorder. Continue medical management. 12. Cardiomyopathy. Continue current treatment plan. Subjective 24 Hr Interval Summary Free Text/Dictation The patient is stable, had hemodialysis yesterday. No other acute events noted. No hemoptysis, hematemesis, or hematochezia. Exam/Review of Systems Vital Signs Vitals Vital Signs Date Time Temp Pulse Resp B/P Pulse Ox O2 Delivery O2 Flow Rate FiO2 01/26/17 07:18 99.0 89 19 142/84 97 Intake and Output 01/25/17 01/25/17 01/26/17 15:00 23:00 07:00 Intake Total 700 ml 450 ml 600 ml Output Total 2200 ml 1600 ml Balance -1500 ml -1150 ml 600 ml Exam VITAL SIGNS: Blood pressure is 129/83, respirations 18, pulse 99, temperature 98.3. HEENT: Head is normocephalic. NECK: Supple. HEART: Regular rate. LUNGS: Show diminished breath sounds at the base. ABDOMEN: Soft, nontender to palpation. No rebound or guarding. EXTREMITIES: Negative for clubbing, cyanosis, no edema. DERMATOLOGIC: No rashes. MUSCULOSKELETAL: No joint effusions. NEUROLOGIC: No change in exam. Results Result Diagram: 01/24/17 0532 01/25/17 1805 Results 24 hrs Laboratory Tests Test 01/25/17 11:55 01/25/17 17:37 01/25/17 18:05 01/25/17 20:50 Bedside Glucose 106 78 129 Sodium Level 135 Potassium Level 5.2 H Chloride Level 97 Carbon Dioxide Level 26 Anion Gap 17 H Blood Urea Nitrogen 38 #H Creatinine 8.18 H Glucose Level 85 Calcium Level 9.2 Test 01/26/17 03:04 01/26/17 07:53 Bedside Glucose 75 74 Medications Medications Current Medications Aspirin (Halfprin) 81 mg DAILY PO Last administered on 01/25/17 08:04; Admin Dose 81 MG; Start 01/21/17 at 09:00 Atorvastatin Calcium (Lipitor) 20 mg HS PO Last administered on 01/25/17 20:51 ; Admin Dose 20 MG; Start 01/20/17 at 21:00 Gabapentin (Neurontin) 100 mg BID PO Last administered on 01/25/17 20:51; Admin Dose 100 MG; Start 01/20/17 at 21:00 Lisinopril (Zestril) 2.5 mg DAILY PO Last administered on 01/23/17 09:35; Admin Dose 2.5 MG; Start 01/21/17 at 09:00 Insulin Glargine (Lantus) 17 unit DAILY@20 SC Last administered on 01/25/17 20: 53; Admin Dose 17 UNIT; Start 01/20/17 at 20:00 Miscellaneous Information 1 ea NOTE XX ; Start 01/20/17 at 17:30 Glucose (Glutose) 15 gm Q15M PRN PO DECREASED GLUCOSE; Start 01/20/17 at 17:30 Glucose (Glutose) 22.5 gm Q15M PRN PO DECREASED GLUCOSE; Start 01/20/17 at 17:30 Dextrose (D50w Syringe) 25 ml Q15M PRN IV DECREASED GLUCOSE; Start 01/20/17 at 17:30 Dextrose (D50w Syringe) 50 ml Q15M PRN IV DECREASED GLUCOSE; Start 01/20/17 at 17:30 Glucagon (Glucagen) 1 mg Q15M PRN IM DECREASED GLUCOSE; Start 01/20/17 at 17:30 Glucose (Glutose) 15 gm Q15M PRN BUCCAL DECREASED GLUCOSE; Start 01/20/17 at 17: 30 Diagnostic Test (Pha) (Accu-Chek) 1 ea 02 XX Last administered on 01/26/17 02: 00; Admin Dose 1 EA; Start 01/21/17 at 02:00 Morphine Sulfate (morphine) 2 mg Q4 PRN IV PAIN Last administered on 01/25/17 14:31; Admin Dose 2 MG; Start 01/20/17 at 19:00 Zolpidem Tartrate (Ambien) 5 mg HS PRN PO INSOMNIA Last administered on 21:01; Admin Dose 5 MG; Start 01/20/17 at 23:30 Oxycodone/ Acetaminophen 1 tab 1 tab Q6H PRN PO PAIN Last administered on 10:05; Admin Dose 1 TAB; Start 01/21/17 at 13:30 Cefepime HCl (Maxipime 1gm/50 ml (Pmx)) 50 ml @ 100 mls/hr Q24H IVPB Last administered on 01/25/17 14:27; Admin Dose 100 MLS/HR; Start 01/21/17 at 14:00 Polyethylene Glycol (Miralax) 17 gm DAILY PO Last administered on 01/25/17 08: 04; Admin Dose 17 GM; Start 01/21/17 at 15:00 Docusate Sodium (Colace) 100 mg BID PO Last administered on 01/25/17 20:51; Admin Dose 100 MG; Start 01/21/17 at 15:00 Quetiapine Fumarate 200 mg 200 mg QHS PO Last administered on 01/25/17 20:51; Admin Dose 200 MG; Start 01/21/17 at 21:00 Ferric Sodium Gluconate Complex/ Sodium Chloride (Ferrlecit/NS) 110 ml @ 110 mls/hr Q24H IVPB Last administered on 01/25/17 10:05; Admin Dose 110 MLS/HR; Start 01/23/17 at 11:00; Stop 01/27/17 at 11:59 Ondansetron HCl (Zofran Inj) 4 mg Q6H PRN IV NAUSEA AND/OR VOMITING Last administered on 01/25/17 17:54; Admin Dose 4 MG; Start 01/24/17 at 23:45 KERI DE SOUZA DO Jan 26, 2017 08:26
[2017-01-26 08:36] LABS: CALCIUM 8.9 mg/dl (8.4-10.2); CREATININE 9.2 mg/dl (0.61-1.24); MAGNESIUM 2.2 mg/dl (1.7-2.5); PHOSPHORUS 8.5 mg/dl (2.5-4.9); POTASSIUM 5.8 mmol/L (3.5-5.1)
[2017-01-26] MEDS: ASPIRIN (EC) 81 MG TAB PO SCH (08:50)
[2017-01-26] MEDS: DOCUSATE SODIUM 100 MG CAP PO SCH ×2 (08:50→20:51)
[2017-01-26] MEDS: GABAPENTIN 100 MG CAP PO SCH ×2 (08:50→20:51)
[2017-01-26] MEDS: POLYETHYLENE GLYCOL 17 GM PACKET PO SCH (08:50)
[2017-01-26] MEDS: SEVELAMER 800 MG TAB PO SCH ×4 (08:50→20:51)
[2017-01-26] MEDS: LISINOPRIL 5 MG TAB PO SCH (08:51)
[2017-01-26] MEDS: SOD FERRIC GLUC COMPLX 125 MG in SOD CHLORIDE 0.9% 100 ML IVPB SCH (11:32)
[2017-01-26] MEDS: morphine 2 MG INJ IV PRN ×3 (11:32→20:35)
--- NOTE | 2017-01-26 12:43 | CONS ---
Date/Time of Note Date/Time of Note DATE: 01/26/17 TIME: 12:39 Assessment/Plan Assessment/Plan Chief Complaint/Hosp Course 56 yo male ESRD, DM, hypothyroidism, ischemic CM admitted with pneumonia and encephalopathy with active metabolic issues. -recommend MRI Brain without contrast -may resume anti-depressants -will follow Problems: Consultation Date/Type/Reason Admit Date/Time Jan 20, 2017 at 15:31 Date of Consultation: Jan 26, 2017 Type of Consultation: Neurology Reason for Consultation evaluation for encephalopathy Referring Provider: SCOT DÍAZ Hx of Present Illness 56 yo male with hx of ESRD, chronic pain, bipolar disorder, hypothyroidism, DM, anemia, ischemic CM admitted for right sided pneumonia with pleural effusion, metabolic encephalopathy. Neurology consulted for AMS, today he is very agitated and upset he is in the hospital, requesting to go home. MRI ordered for further eval. Constitutional: no complaints Neurologic: other (Stuttering) Psychological: confusion Social History Alcohol Use: sober Smoking Status: Unknown if ever smoked Drug Use: other (Remote history of drug abuse) Exam/Review of Systems Vital Signs Vitals Vital Signs Date Time Temp Pulse Resp B/P Pulse Ox O2 Delivery O2 Flow Rate FiO2 01/26/17 12:25 101 01/26/17 11:50 14 01/26/17 11:40 98.4 142/90 95 Intake and Output 01/25/17 01/25/17 01/26/17 15:00 23:00 07:00 Intake Total 700 ml 450 ml 600 ml Output Total 2200 ml 1600 ml Balance -1500 ml -1150 ml 600 ml Exam lying in bed receiving dialysis agitated irritable oriented to self hospital and the date follows commands CN: MARIA DEL ROSARIO, VFF, EOMI no nystagmus, V1-3 intact palate upgoing uvula midline scm/trap intact Motor: no drift in arms or legs c/o pain when testing his LE Refexes depressed throughout Coordination mild intention tremor bilaterally Results Result Diagram: 01/24/17 0532 01/26/17 0630 Results 24 hrs Laboratory Tests Test 01/25/17 17:37 01/25/17 18:05 01/25/17 20:50 01/26/17 03:04 Bedside Glucose 78 129 75 Sodium Level 135 Potassium Level 5.2 H Chloride Level 97 Carbon Dioxide Level 26 Anion Gap 17 H Blood Urea Nitrogen 38 #H Creatinine 8.18 H Glucose Level 85 Calcium Level 9.2 Test 01/26/17 06:30 01/26/17 07:53 01/26/17 11:38 Sodium Level 136 Potassium Level 5.8 H Chloride Level 98 Carbon Dioxide Level 26 Anion Gap 18 H Blood Urea Nitrogen 43 H Creatinine 9.20 H Glucose Level 80 Calcium Level 8.9 Phosphorus Level 8.5 H Magnesium Level 2.2 Bedside Glucose 74 73 Medications Medications Current Medications Aspirin (Halfprin) 81 mg DAILY PO Last administered on 01/26/17 08:50; Admin Dose 81 MG; Start 01/21/17 at 09:00 Atorvastatin Calcium (Lipitor) 20 mg HS PO Last administered on 01/25/17 20:51 ; Admin Dose 20 MG; Start 01/20/17 at 21:00 Gabapentin (Neurontin) 100 mg BID PO Last administered on 01/26/17 08:50; Admin Dose 100 MG; Start 01/20/17 at 21:00 Lisinopril (Zestril) 2.5 mg DAILY PO Last administered on 01/26/17 08:51; Admin Dose 2.5 MG; Start 01/21/17 at 09:00 Insulin Glargine (Lantus) 17 unit DAILY@20 SC Last administered on 01/25/17 20: 53; Admin Dose 17 UNIT; Start 01/20/17 at 20:00 Miscellaneous Information 1 ea NOTE XX ; Start 01/20/17 at 17:30 Glucose (Glutose) 15 gm Q15M PRN PO DECREASED GLUCOSE; Start 01/20/17 at 17:30 Glucose (Glutose) 22.5 gm Q15M PRN PO DECREASED GLUCOSE; Start 01/20/17 at 17:30 Dextrose (D50w Syringe) 25 ml Q15M PRN IV DECREASED GLUCOSE; Start 01/20/17 at 17:30 Dextrose (D50w Syringe) 50 ml Q15M PRN IV DECREASED GLUCOSE; Start 01/20/17 at 17:30 Glucagon (Glucagen) 1 mg Q15M PRN IM DECREASED GLUCOSE; Start 01/20/17 at 17:30 Glucose (Glutose) 15 gm Q15M PRN BUCCAL DECREASED GLUCOSE; Start 01/20/17 at 17: 30 Diagnostic Test (Pha) (Accu-Chek) 1 ea 02 XX Last administered on 01/26/17 02: 00; Admin Dose 1 EA; Start 01/21/17 at 02:00 Morphine Sulfate (morphine) 2 mg Q4 PRN IV PAIN Last administered on 01/26/17 11:32; Admin Dose 2 MG; Start 01/20/17 at 19:00 Zolpidem Tartrate (Ambien) 5 mg HS PRN PO INSOMNIA Last administered on 21:01; Admin Dose 5 MG; Start 01/20/17 at 23:30 Oxycodone/ Acetaminophen 1 tab 1 tab Q6H PRN PO PAIN Last administered on 10:05; Admin Dose 1 TAB; Start 01/21/17 at 13:30 Cefepime HCl (Maxipime 1gm/50 ml (Pmx)) 50 ml @ 100 mls/hr Q24H IVPB Last administered on 01/25/17 14:27; Admin Dose 100 MLS/HR; Start 01/21/17 at 14:00 Polyethylene Glycol (Miralax) 17 gm DAILY PO Last administered on 01/26/17 08: 50; Admin Dose 17 GM; Start 01/21/17 at 15:00 Docusate Sodium (Colace) 100 mg BID PO Last administered on 01/26/17 08:50; Admin Dose 100 MG; Start 01/21/17 at 15:00 Quetiapine Fumarate 200 mg 200 mg QHS PO Last administered on 01/25/17 20:51; Admin Dose 200 MG; Start 01/21/17 at 21:00 Ferric Sodium Gluconate Complex/ Sodium Chloride (Ferrlecit/NS) 110 ml @ 110 mls/hr Q24H IVPB Last administered on 01/26/17 11:32; Admin Dose 110 MLS/HR; Start 01/23/17 at 11:00; Stop 01/27/17 at 11:59 Ondansetron HCl (Zofran Inj) 4 mg Q6H PRN IV NAUSEA AND/OR VOMITING Last administered on 01/25/17 17:54; Admin Dose 4 MG; Start 01/24/17 at 23:45 MONY GRIFFIN MD Jan 26, 2017 12:43
--- NOTE | 2017-01-26 12:44 | CONS ---
Date/Time of Note Date/Time of Note DATE: 01/26/17 TIME: 12:43 Assessment/Plan Assessment/Plan Chief Complaint/Hosp Course SUBJECTIVE: No acute changes. The patient is in HD, no fevers. INDWELLINGS: Left chest PermCath. MICROBIOLOGY: Blood culture on admission grew gram-positive cocci in pairs and clusters. Urine culture negative. DIAGNOSTICS: Chest x-ray revealed right lower lobe patchy consolidation and small to moderate right-sided pleural effusion. CT of the brain revealed no acute intracranial pathology. ANTIMICROBIALS: 1. IV cefepime. 2. Vancomycin. PHYSICAL EXAMINATION: GENERAL: This is an obese, well-developed, middle-aged man who is alert, in no distress. HEENT: Head atraumatic, normocephalic. Sclerae anicteric. Buccal mucosa pink. NECK: Supple. CHEST: Rise symmetrical. Breath sounds diminished to bases. HEART: S1, S2. ABDOMEN: Soft, bowel sounds present. EXTREMITIES: Without cyanosis. ASSESSMENT: 1. Sepsis with acute encephalopathy, tachycardia, and hypoxemia==> resolving. 2. Staph bacteremia==> r/o line sepsis. 3. Pneumonia. 4. End-stage renal disease, hemodialysis dependent. 5. Diabetes. 6. Chronic obstructive pulmonary disease. 7. Left chest PermCath. PLAN: The patient remains stable. I ordered repeat blood cultures with hemodialysis on Sunday and those were drawn but not in computer, will ask staff to call microbiology, will repeat bld cx now. Continue antibiotics. DW staff/DW RN Problems: Consultation Date/Type/Reason Admit Date/Time Jan 20, 2017 at 15:31 Type of Consultation: ID Exam/Review of Systems Vital Signs Vitals Vital Signs Date Time Temp Pulse Resp B/P Pulse Ox O2 Delivery O2 Flow Rate FiO2 01/26/17 12:25 101 01/26/17 11:50 14 01/26/17 11:40 98.4 142/90 95 Intake and Output 01/25/17 01/25/17 01/26/17 15:00 23:00 07:00 Intake Total 700 ml 450 ml 600 ml Output Total 2200 ml 1600 ml Balance -1500 ml -1150 ml 600 ml Results Result Diagram: 01/24/17 0532 01/26/17 0630 Results 24 hrs Laboratory Tests Test 01/25/17 17:37 01/25/17 18:05 01/25/17 20:50 01/26/17 03:04 Bedside Glucose 78 129 75 Sodium Level 135 Potassium Level 5.2 H Chloride Level 97 Carbon Dioxide Level 26 Anion Gap 17 H Blood Urea Nitrogen 38 #H Creatinine 8.18 H Glucose Level 85 Calcium Level 9.2 Test 01/26/17 06:30 01/26/17 07:53 01/26/17 11:38 Sodium Level 136 Potassium Level 5.8 H Chloride Level 98 Carbon Dioxide Level 26 Anion Gap 18 H Blood Urea Nitrogen 43 H Creatinine 9.20 H Glucose Level 80 Calcium Level 8.9 Phosphorus Level 8.5 H Magnesium Level 2.2 Bedside Glucose 74 73 Medications Medications Current Medications Aspirin (Halfprin) 81 mg DAILY PO Last administered on 01/26/17 08:50; Admin Dose 81 MG; Start 01/21/17 at 09:00 Atorvastatin Calcium (Lipitor) 20 mg HS PO Last administered on 01/25/17 20:51 ; Admin Dose 20 MG; Start 01/20/17 at 21:00 Gabapentin (Neurontin) 100 mg BID PO Last administered on 01/26/17 08:50; Admin Dose 100 MG; Start 01/20/17 at 21:00 Lisinopril (Zestril) 2.5 mg DAILY PO Last administered on 01/26/17 08:51; Admin Dose 2.5 MG; Start 01/21/17 at 09:00 Insulin Glargine (Lantus) 17 unit DAILY@20 SC Last administered on 01/25/17 20: 53; Admin Dose 17 UNIT; Start 01/20/17 at 20:00 Miscellaneous Information 1 ea NOTE XX ; Start 01/20/17 at 17:30 Glucose (Glutose) 15 gm Q15M PRN PO DECREASED GLUCOSE; Start 01/20/17 at 17:30 Glucose (Glutose) 22.5 gm Q15M PRN PO DECREASED GLUCOSE; Start 01/20/17 at 17:30 Dextrose (D50w Syringe) 25 ml Q15M PRN IV DECREASED GLUCOSE; Start 01/20/17 at 17:30 Dextrose (D50w Syringe) 50 ml Q15M PRN IV DECREASED GLUCOSE; Start 01/20/17 at 17:30 Glucagon (Glucagen) 1 mg Q15M PRN IM DECREASED GLUCOSE; Start 01/20/17 at 17:30 Glucose (Glutose) 15 gm Q15M PRN BUCCAL DECREASED GLUCOSE; Start 01/20/17 at 17: 30 Diagnostic Test (Pha) (Accu-Chek) 1 ea 02 XX Last administered on 01/26/17 02: 00; Admin Dose 1 EA; Start 01/21/17 at 02:00 Morphine Sulfate (morphine) 2 mg Q4 PRN IV PAIN Last administered on 01/26/17 11:32; Admin Dose 2 MG; Start 01/20/17 at 19:00 Zolpidem Tartrate (Ambien) 5 mg HS PRN PO INSOMNIA Last administered on 21:01; Admin Dose 5 MG; Start 01/20/17 at 23:30 Oxycodone/ Acetaminophen 1 tab 1 tab Q6H PRN PO PAIN Last administered on 10:05; Admin Dose 1 TAB; Start 01/21/17 at 13:30 Cefepime HCl (Maxipime 1gm/50 ml (Pmx)) 50 ml @ 100 mls/hr Q24H IVPB Last administered on 01/25/17 14:27; Admin Dose 100 MLS/HR; Start 01/21/17 at 14:00 Polyethylene Glycol (Miralax) 17 gm DAILY PO Last administered on 01/26/17 08: 50; Admin Dose 17 GM; Start 01/21/17 at 15:00 Docusate Sodium (Colace) 100 mg BID PO Last administered on 01/26/17 08:50; Admin Dose 100 MG; Start 01/21/17 at 15:00 Quetiapine Fumarate 200 mg 200 mg QHS PO Last administered on 01/25/17 20:51; Admin Dose 200 MG; Start 01/21/17 at 21:00 Ferric Sodium Gluconate Complex/ Sodium Chloride (Ferrlecit/NS) 110 ml @ 110 mls/hr Q24H IVPB Last administered on 01/26/17 11:32; Admin Dose 110 MLS/HR; Start 01/23/17 at 11:00; Stop 01/27/17 at 11:59 Ondansetron HCl (Zofran Inj) 4 mg Q6H PRN IV NAUSEA AND/OR VOMITING Last administered on 01/25/17 17:54; Admin Dose 4 MG; Start 01/24/17 at 23:45 AUBRIE MORGAN NP Jan 26, 2017 12:44
[2017-01-26] MEDS: CEFEPIME 1GM/50 ML (PMX) 50 ML IVPB SCH (14:27)
--- NOTE | 2017-01-26 15:56 | PN ---
Date/Time of Note Date/Time of Note DATE: 01/26/17 TIME: 15:53 Assessment/Plan VTE Prophylaxis VTE Prophylaxis Intervention: heparin Lines/Catheters IV Catheter Type (from Nrs): Saline Lock Assessment/Plan Chief Complaint/Hosp Course 1. Acute metabolic encephalopathy secondary to sepsis from pneumonia and/or Uremia versus [employer] disorder Neurology consultation t Patient reports persistent stuttering, will obtain an MRI of the head 2. Right-sided pneumonia with right-sided pleural effusion 3. Sepsis with bacteremia likely secondary to right-sided pneumonia versus line sepsis Patient has had 2 prior episodes of line sepsis Follow-up and repeat blood cultures 4. End-stage renal disease on hemodialysis Continue HD per renal 5. Chronic back and LE pain 6. Hyperkalemia secondary to renal disease 7. Chronic normocytic normochromic anemia of renal disease 8. Cardiomyopathy with last known EF of 24% for which patient refused AICD 9. Hypothyroidism 10. Diabetes mellitus type 2 Discontinued metformin in this patient with end-stage renal disease 11. Chronic depression Gently restart his antidepressants, and hold for the first sign of alteration in mentation 12. Thrombocytopenia probably secondary to sepsis rule out iron deficiency 13. Non compliance Prophylaxis with heparin and PPI. Problems: Subjective 24 Hr Interval Summary Neurologic: other (Stuttering) Exam/Review of Systems Vital Signs Vitals Vital Signs Date Time Temp Pulse Resp B/P Pulse Ox O2 Delivery O2 Flow Rate FiO2 01/26/17 13:55 88 12 01/26/17 11:40 98.4 142/90 95 Intake and Output 01/25/17 01/25/17 01/26/17 15:00 23:00 07:00 Intake Total 700 ml 450 ml 600 ml Output Total 2200 ml 1600 ml Balance -1500 ml -1150 ml 600 ml Exam Constitutional: alert Respiratory: clear to auscultation Cardiovascular: regular rate and rhythm Gastrointestinal: soft, No distended Musculoskeletal: nl extremities to inspection Results Result Diagram: 01/24/17 0532 01/26/17 0630 Results 24 hrs Laboratory Tests Test 01/25/17 17:37 01/25/17 18:05 01/25/17 20:50 01/26/17 03:04 Bedside Glucose 78 129 75 Sodium Level 135 Potassium Level 5.2 H Chloride Level 97 Carbon Dioxide Level 26 Anion Gap 17 H Blood Urea Nitrogen 38 #H Creatinine 8.18 H Glucose Level 85 Calcium Level 9.2 Test 01/26/17 06:30 01/26/17 07:53 01/26/17 11:38 Sodium Level 136 Potassium Level 5.8 H Chloride Level 98 Carbon Dioxide Level 26 Anion Gap 18 H Blood Urea Nitrogen 43 H Creatinine 9.20 H Glucose Level 80 Calcium Level 8.9 Phosphorus Level 8.5 H Magnesium Level 2.2 Bedside Glucose 74 73 Medications Medications Current Medications Aspirin (Halfprin) 81 mg DAILY PO Last administered on 01/26/17 08:50; Admin Dose 81 MG; Start 01/21/17 at 09:00 Atorvastatin Calcium (Lipitor) 20 mg HS PO Last administered on 01/25/17 20:51 ; Admin Dose 20 MG; Start 01/20/17 at 21:00 Gabapentin (Neurontin) 100 mg BID PO Last administered on 01/26/17 08:50; Admin Dose 100 MG; Start 01/20/17 at 21:00 Lisinopril (Zestril) 2.5 mg DAILY PO Last administered on 01/26/17 08:51; Admin Dose 2.5 MG; Start 01/21/17 at 09:00 Insulin Glargine (Lantus) 17 unit DAILY@20 SC Last administered on 01/25/17 20: 53; Admin Dose 17 UNIT; Start 01/20/17 at 20:00 Miscellaneous Information 1 ea NOTE XX ; Start 01/20/17 at 17:30 Glucose (Glutose) 15 gm Q15M PRN PO DECREASED GLUCOSE; Start 01/20/17 at 17:30 Glucose (Glutose) 22.5 gm Q15M PRN PO DECREASED GLUCOSE; Start 01/20/17 at 17:30 Dextrose (D50w Syringe) 25 ml Q15M PRN IV DECREASED GLUCOSE; Start 01/20/17 at 17:30 Dextrose (D50w Syringe) 50 ml Q15M PRN IV DECREASED GLUCOSE; Start 01/20/17 at 17:30 Glucagon (Glucagen) 1 mg Q15M PRN IM DECREASED GLUCOSE; Start 01/20/17 at 17:30 Glucose (Glutose) 15 gm Q15M PRN BUCCAL DECREASED GLUCOSE; Start 01/20/17 at 17: 30 Diagnostic Test (Pha) (Accu-Chek) 1 ea 02 XX Last administered on 01/26/17 02: 00; Admin Dose 1 EA; Start 01/21/17 at 02:00 Morphine Sulfate (morphine) 2 mg Q4 PRN IV PAIN Last administered on 01/26/17 15:45; Admin Dose 2 MG; Start 01/20/17 at 19:00 Zolpidem Tartrate (Ambien) 5 mg HS PRN PO INSOMNIA Last administered on 21:01; Admin Dose 5 MG; Start 01/20/17 at 23:30 Oxycodone/ Acetaminophen 1 tab 1 tab Q6H PRN PO PAIN Last administered on 10:05; Admin Dose 1 TAB; Start 01/21/17 at 13:30 Cefepime HCl (Maxipime 1gm/50 ml (Pmx)) 50 ml @ 100 mls/hr Q24H IVPB Last administered on 01/26/17 14:27; Admin Dose 100 MLS/HR; Start 01/21/17 at 14:00 Polyethylene Glycol (Miralax) 17 gm DAILY PO Last administered on 01/26/17 08: 50; Admin Dose 17 GM; Start 01/21/17 at 15:00 Docusate Sodium (Colace) 100 mg BID PO Last administered on 01/26/17 08:50; Admin Dose 100 MG; Start 01/21/17 at 15:00 Quetiapine Fumarate 200 mg 200 mg QHS PO Last administered on 01/25/17 20:51; Admin Dose 200 MG; Start 01/21/17 at 21:00 Ferric Sodium Gluconate Complex/ Sodium Chloride (Ferrlecit/NS) 110 ml @ 110 mls/hr Q24H IVPB Last administered on 01/26/17 11:32; Admin Dose 110 MLS/HR; Start 01/23/17 at 11:00; Stop 01/27/17 at 11:59 Ondansetron HCl (Zofran Inj) 4 mg Q6H PRN IV NAUSEA AND/OR VOMITING Last administered on 01/25/17 17:54; Admin Dose 4 MG; Start 01/24/17 at 23:45 SCOT DÍAZ Jan 26, 2017 15:56
[2017-01-26] MEDS: ATORVASTATIN 20 MG TAB PO SCH (20:51)
[2017-01-26] MEDS: ONDANSETRON 4 MG INJ IV PRN (20:52)
[2017-01-26] MEDS: QUETIAPINE 100 MG TAB PO SCH (20:52)
[2017-01-26] MEDS: INSULIN GLARGINE [LANtus] 3 ML PEN SC SCH (21:01)
[2017-01-26] MEDS: ZOLPIDEM 5 MG TAB PO PRN (22:14)
[2017-01-27] MEDS: ACCUCHECK AT 2AM (Patients on SS coverage) XX SCH (02:00)
[2017-01-27 03:11] VITALS: BP 143/81; RESP 17
[2017-01-27] MEDS: LEVOTHYROXINE 150 MCG TAB PO SCH (06:34)
[2017-01-27 07:00] VITALS: BP 131/84; RESP 19
[2017-01-27 07:12] LABS: ADD SCAN DIFF NO
[2017-01-27 07:36] LABS: ABNORMAL IP MESSAGE 1; BASOPHIL # 0.1 10^3/ul (0.0-0.1); BASOPHILS % 0.9 % (0.0-2.0); EOSINOPHILS # 0.3 10^3/ul (0.0-0.5); EOSINOPHILS % 4.9 % (0.0-7.0); HEMATOCRIT 41.5 % (42.0-52.0); HEMOGLOBIN 12.6 g/dl (14.0-18.0); LYMPHOCYTES # 1.1 10^3/ul (0.8-2.9); LYMPHOCYTES % 17.7 % (15.0-51.0); MEAN CORPUSCULAR HEMOGLOBIN 28.6 pg (29.0-33.0); MEAN CORPUSCULAR HGB CONC 30.4 g/dl (32.0-37.0); MEAN CORPUSCULAR VOLUME 94.1 fl (82.0-101.0); MEAN PLATELET VOLUME 12.2 fl (7.4-10.4); MONOCYTE # 0.8 10^3/ul (0.3-0.9); MONOCYTES % 13.1 % (0.0-11.0); NEUTROPHILS % 63.1 % (39.0-77.0); PLATELET COUNT 99 10^3/UL (140-415); RED BLOOD COUNT 4.41 10^6/ul (4.70-6.10); RED CELL DISTRIBUTION WIDTH 17.6 % (11.5-14.5); WHITE BLOOD COUNT 6.3 10^3/ul (4.8-10.8)
--- NOTE | 2017-01-27 07:42 | PN ---
Date/Time of Note Date/Time of Note DATE: 01/27/17 TIME: 07:36 Assessment/Plan VTE Prophylaxis VTE Prophylaxis Intervention: ambulation Lines/Catheters IV [facility] Saline Lock Assessment/Plan Assessment/Plan 1. End-stage renal disease. The patient had hemodialysis yesterday for hyperkalemia. Repeat renal panel pending. -If hyperkalemia does not improve will check kt/v to evaluate adequacy. May need to exchange permacath -monitor 2. Hyperkalemia secondary to end-stage renal disease. The patient had hemodialysis yesterday. -f/u renal panel 3. Anemia. Continue to monitor hemoglobin and hematocrit levels. Continue IV iron. 4. Mineral bone disorder. Continue to monitor calcium and phosphorus levels. Continue phos binders. 5. Volume overload, improving. Continue ultrafiltration with dialysis. 6. Acute encephalopathy, etiology is toxic metabolic, possibly uremic. Continue to monitor. 7. Access. The patient has PermCath. No noted problems with catheter function. Will check kt/v of next HD 8. Sepsis. The patient is clinically improving. Continue current antibiotic regimen. 9. Diabetes. Continue Accu-Cheks and insulin sliding scale. 10. Hypertensive. Continue Synthroid. 11. Bipolar disorder. Continue medical management. 12. Cardiomyopathy. Continue current treatment plan. Subjective 24 Hr Interval Summary Free Text/Dictation The patient is stable, had hemodialysis yesterday. No other acute events noted. No hemoptysis, hematemesis, or hematochezia. Exam/Review of Systems Vital Signs Vitals Vital Signs Date Time Temp Pulse Resp B/P Pulse Ox O2 Delivery O2 Flow Rate FiO2 01/27/17 07:00 98.2 19 19 131/84 94 Intake and Output 01/26/17 01/26/17 01/27/17 15:00 23:00 07:00 Intake Total 610 ml 850 ml 840 ml Output Total 1700 ml 0 ml Balance -1090 ml 850 ml 840 ml Exam HEENT: Head is normocephalic. NECK: Supple. HEART: Regular rate. LUNGS: Show diminished breath sounds at the base. ABDOMEN: Soft, nontender to palpation. No rebound or guarding. EXTREMITIES: Negative for clubbing, cyanosis, no edema. DERMATOLOGIC: No rashes. MUSCULOSKELETAL: No joint effusions. NEUROLOGIC: No change in exam. Results Result Diagram: 01/24/17 0532 01/26/17 0630 Results 24 hrs Laboratory Tests Test 01/26/17 07:53 01/26/17 11:38 01/26/17 17:10 01/26/17 20:44 Bedside Glucose 74 73 77 108 Medications Medications Current Medications Aspirin (Halfprin) 81 mg DAILY PO Last administered on 01/26/17 08:50; Admin Dose 81 MG; Start 01/21/17 at 09:00 Atorvastatin Calcium (Lipitor) 20 mg HS PO Last administered on 01/26/17 20:51 ; Admin Dose 20 MG; Start 01/20/17 at 21:00 Gabapentin (Neurontin) 100 mg BID PO Last administered on 01/26/17 20:51; Admin Dose 100 MG; Start 01/20/17 at 21:00 Lisinopril (Zestril) 2.5 mg DAILY PO Last administered on 01/26/17 08:51; Admin Dose 2.5 MG; Start 01/21/17 at 09:00 Insulin Glargine (Lantus) 17 unit DAILY@20 SC Last administered on 01/26/17 21: 01; Admin Dose 17 UNIT; Start 01/20/17 at 20:00 Miscellaneous Information 1 ea NOTE XX ; Start 01/20/17 at 17:30 Glucose (Glutose) 15 gm Q15M PRN PO DECREASED GLUCOSE; Start 01/20/17 at 17:30 Glucose (Glutose) 22.5 gm Q15M PRN PO DECREASED GLUCOSE; Start 01/20/17 at 17:30 Dextrose (D50w Syringe) 25 ml Q15M PRN IV DECREASED GLUCOSE; Start 01/20/17 at 17:30 Dextrose (D50w Syringe) 50 ml Q15M PRN IV DECREASED GLUCOSE; Start 01/20/17 at 17:30 Glucagon (Glucagen) 1 mg Q15M PRN IM DECREASED GLUCOSE; Start 01/20/17 at 17:30 Glucose (Glutose) 15 gm Q15M PRN BUCCAL DECREASED GLUCOSE; Start 01/20/17 at 17: 30 Diagnostic Test (Pha) (Accu-Chek) 1 ea 02 XX Last administered on 01/26/17 02: 00; Admin Dose 1 EA; Start 01/21/17 at 02:00 Morphine Sulfate (morphine) 2 mg Q4 PRN IV PAIN Last administered on 01/26/17 20:35; Admin Dose 2 MG; Start 01/20/17 at 19:00 Zolpidem Tartrate (Ambien) 5 mg HS PRN PO INSOMNIA Last administered on 22:14; Admin Dose 5 MG; Start 01/20/17 at 23:30 Oxycodone/ Acetaminophen 1 tab 1 tab Q6H PRN PO PAIN Last administered on 10:05; Admin Dose 1 TAB; Start 01/21/17 at 13:30 Cefepime HCl (Maxipime 1gm/50 ml (Pmx)) 50 ml @ 100 mls/hr Q24H IVPB Last administered on 01/26/17 14:27; Admin Dose 100 MLS/HR; Start 01/21/17 at 14:00 Polyethylene Glycol (Miralax) 17 gm DAILY PO Last administered on 01/26/17 08: 50; Admin Dose 17 GM; Start 01/21/17 at 15:00 Docusate Sodium (Colace) 100 mg BID PO Last administered on 01/26/17 20:51; Admin Dose 100 MG; Start 01/21/17 at 15:00 Quetiapine Fumarate 200 mg 200 mg QHS PO Last administered on 01/26/17 20:52; Admin Dose 200 MG; Start 01/21/17 at 21:00 Ferric Sodium Gluconate Complex/ Sodium Chloride (Ferrlecit/NS) 110 ml @ 110 mls/hr Q24H IVPB Last administered on 01/26/17 11:32; Admin Dose 110 MLS/HR; Start 01/23/17 at 11:00; Stop 01/27/17 at 11:59 Ondansetron HCl (Zofran Inj) 4 mg Q6H PRN IV NAUSEA AND/OR VOMITING Last administered on 01/26/17 20:52; Admin Dose 4 MG; Start 01/24/17 at 23:45 KERI DE SOUZA DO Jan 27, 2017 07:42
[2017-01-27] MEDS: INSULIN ASPART [NOVOLOG] 3 ML PEN SC SCH ×4 (07:55→20:51)
[2017-01-27 08:05] LABS: CREATININE 9.08 mg/dl (0.61-1.24)
[2017-01-27] MEDS: POLYETHYLENE GLYCOL 17 GM PACKET PO SCH ×2 (09:00→09:41)
[2017-01-27] MEDS: GABAPENTIN 100 MG CAP PO SCH ×2 (09:41→20:50)
[2017-01-27] MEDS: DOCUSATE SODIUM 100 MG CAP PO SCH ×2 (09:41→20:50)
[2017-01-27] MEDS: ASPIRIN (EC) 81 MG TAB PO SCH (09:41)
[2017-01-27] MEDS: LISINOPRIL 5 MG TAB PO SCH (09:46)
[2017-01-27 11:00] VITALS: BP 138/74; RESP 19
[2017-01-27] MEDS: SOD FERRIC GLUC COMPLX 125 MG in SOD CHLORIDE 0.9% 100 ML IVPB SCH (11:34)
[2017-01-27] MEDS: morphine 2 MG INJ IV PRN ×3 (11:35→21:02)
[2017-01-27] MEDS: SEVELAMER 800 MG TAB PO SCH ×2 (12:23→17:19)
[2017-01-27] MEDS: CEFEPIME 1GM/50 ML (PMX) 50 ML IVPB SCH (13:35)
[2017-01-27] MEDS: OXYCODONE/ACETAMINOPHEN (10/325) TAB PO PRN (13:43)
--- NOTE | 2017-01-27 17:52 | RADRPT ---
PROCEDURE: MRI Brain without contrast. CLINICAL INDICATION: Difficulty speaking TECHNIQUE: An MRI of the brain was performed on a high resolution hi-definition MRI scanner utiliz ing the following sequences: Sagittal and axial T1 weighted, axial T2 weighted, axial T2 FLAIR, axia l diffusion weighted with ADC mapping, and coronal GRE. COMPARISON: CT brain 01/20/2017 FINDINGS: The scalp and calvarium are normal. The paranasal sinuses are remarkable for mild chronic mucoperios teal disease in the frontal, ethmoid, sphenoid, and maxillary sinuses. The bilateral mastoid air ce lls and middle ear cavities are clear. No extra-axial fluid collections are present. The ventricles and sulci are age appropriate. Mild di ffuse volume loss is present. No evidence of intracranial hemorrhage, mass effect or midline shift is present. On the FLAIR and T2-weighted sequences, multiple punctate foci of hyperintensity are pre sent in the bilateral subcortical white matter, bilateral centrum semiovale, and bilateral periventr icular white matter all compatible with mild chronic microvascular ischemic disease.. No diffusion w eighted abnormalities are seen to suggest the presence of acute ischemia or recent infarct. No hypo intense signal abnormalities are seen on the GRE images to suggest the presence of blood degradation products. Normal flow voids are visible in the proximal intracranial arteries and dural sinuses , indicating patency. IMPRESSION: 1. No evidence for acute intracranial infarcts, hemorrhage, or acute intracranial pathology. 2. Mild chronic microvascular ischemic disease and mild diffuse volume loss. 3. Mild chronic paranasal sinus disease RPTAT: HDC .Jenniffer Howard MD, Date Time Electronically viewed and signed by .Jenniffer Howard MD, MD on 01/27/2017 17:52 .C/
--- NOTE | 2017-01-27 18:23 | PN ---
Date/Time of Note Date/Time of Note DATE: 01/27/17 TIME: 18:21 Assessment/Plan VTE Prophylaxis VTE Prophylaxis Intervention: heparin Lines/Catheters IV Catheter Type (from Nrs): Saline Lock Assessment/Plan Chief Complaint/Hosp Course 1. Acute metabolic encephalopathy secondary to sepsis from pneumonia and/or Uremia versus [employer] disorder Neurology consultation should, MRI brain shows no acute findings Patient reports persistent stuttering, patient's home psych meds have been restarted 2. Right-sided pneumonia with right-sided pleural effusion 3. Sepsis with bacteremia likely secondary to right-sided pneumonia versus line sepsis Patient has had 2 prior episodes of line sepsis Repeat blood cultures are negative at 1 day, follow-up results tomorrow and if negative will DC home, patient may still need to vancomycin IV for 2 weeks plus Levaquin p.o. 2 weeks, will discuss ID 4. End-stage renal disease on hemodialysis Continue HD per renal 5. Chronic back and LE pain 6. Hyperkalemia secondary to renal disease 7. Chronic normocytic normochromic anemia of renal disease 8. Cardiomyopathy with last known EF of 24% for which patient refused AICD 9. Hypothyroidism 10. Diabetes mellitus type 2 Discontinued metformin in this patient with end-stage renal disease 11. Chronic depression Continue home meds 12. Thrombocytopenia probably secondary to sepsis rule out iron deficiency 13. Non compliance Prophylaxis with heparin and PPI Discharge planning: Anticipate DC home tomorrow Problems: Subjective 24 Hr Interval Summary Constitutional: no complaints Exam/Review of Systems Vital Signs Vitals Vital Signs Date Time Temp Pulse Resp B/P Pulse Ox O2 Delivery O2 Flow Rate FiO2 01/27/17 11:00 98.4 88 19 138/74 97 Intake and Output 01/26/17 01/26/17 01/27/17 15:00 23:00 07:00 Intake Total 610 ml 850 ml 840 ml Output Total 1700 ml 0 ml Balance -1090 ml 850 ml 840 ml Exam Constitutional: alert Respiratory: clear to auscultation Cardiovascular: regular rate and rhythm Gastrointestinal: soft, No distended Musculoskeletal: nl extremities to inspection Results Result Diagram: 01/27/17 0637 01/27/17 0637 Results 24 hrs Laboratory Tests Test 01/26/17 20:44 01/27/17 06:37 01/27/17 08:32 01/27/17 12:21 Bedside Glucose 108 71 126 White Blood Count 6.3 Red Blood Count 4.41 L Hemoglobin 12.6 L Hematocrit 41.5 L Mean Corpuscular Volume 94.1 Mean Corpuscular Hemoglobin 28.6 L Mean Corpuscular Hemoglobin Concent 30.4 L Red Cell Distribution Width 17.6 H Platelet Count 99 #L Mean Platelet Volume 12.2 H Neutrophils % 63.1 Lymphocytes % 17.7 Monocytes % 13.1 H Eosinophils % 4.9 Basophils % 0.9 Nucleated Red Blood Cells % 0.0 Neutrophils # 4.0 Lymphocytes # 1.1 Monocytes # 0.8 Eosinophils # 0.3 Basophils # 0.1 Nucleated Red Blood Cells # 0.0 Sodium Level 138 Potassium Level 5.0 Chloride Level 96 L Carbon Dioxide Level 31 Anion Gap 16 Blood Urea Nitrogen 43 H Creatinine 9.08 H Glucose Level 60 #L Calcium Level 9.0 Test 01/27/17 17:25 Bedside Glucose 90 Medications Medications Current Medications Aspirin (Halfprin) 81 mg DAILY PO Last administered on 01/27/17 09:41; Admin Dose 81 MG; Start 01/21/17 at 09:00 Atorvastatin Calcium (Lipitor) 20 mg HS PO Last administered on 01/26/17 20:51 ; Admin Dose 20 MG; Start 01/20/17 at 21:00 Gabapentin (Neurontin) 100 mg BID PO Last administered on 01/27/17 09:41; Admin Dose 100 MG; Start 01/20/17 at 21:00 Lisinopril (Zestril) 2.5 mg DAILY PO Last administered on 01/27/17 09:46; Admin Dose 2.5 MG; Start 01/21/17 at 09:00 Insulin Glargine (Lantus) 17 unit DAILY@20 SC Last administered on 01/26/17 21: 01; Admin Dose 17 UNIT; Start 01/20/17 at 20:00 Miscellaneous Information 1 ea NOTE XX ; Start 01/20/17 at 17:30 Glucose (Glutose) 15 gm Q15M PRN PO DECREASED GLUCOSE; Start 01/20/17 at 17:30 Glucose (Glutose) 22.5 gm Q15M PRN PO DECREASED GLUCOSE; Start 01/20/17 at 17:30 Dextrose (D50w Syringe) 25 ml Q15M PRN IV DECREASED GLUCOSE; Start 01/20/17 at 17:30 Dextrose (D50w Syringe) 50 ml Q15M PRN IV DECREASED GLUCOSE; Start 01/20/17 at 17:30 Glucagon (Glucagen) 1 mg Q15M PRN IM DECREASED GLUCOSE; Start 01/20/17 at 17:30 Glucose (Glutose) 15 gm Q15M PRN BUCCAL DECREASED GLUCOSE; Start 01/20/17 at 17: 30 Diagnostic Test (Pha) (Accu-Chek) 1 ea 02 XX Last administered on 01/26/17 02: 00; Admin Dose 1 EA; Start 01/21/17 at 02:00 Morphine Sulfate (morphine) 2 mg Q4 PRN IV PAIN Last administered on 01/27/17 17:19; Admin Dose 2 MG; Start 01/20/17 at 19:00 Zolpidem Tartrate (Ambien) 5 mg HS PRN PO INSOMNIA Last administered on 22:14; Admin Dose 5 MG; Start 01/20/17 at 23:30 Oxycodone/ Acetaminophen 1 tab 1 tab Q6H PRN PO PAIN Last administered on 13:43; Admin Dose 1 TAB; Start 01/21/17 at 13:30 Cefepime HCl (Maxipime 1gm/50 ml (Pmx)) 50 ml @ 100 mls/hr Q24H IVPB Last administered on 01/27/17 13:35; Admin Dose 100 MLS/HR; Start 01/21/17 at 14:00 Polyethylene Glycol (Miralax) 17 gm DAILY PO Last administered on 01/26/17 08: 50; Admin Dose 17 GM; Start 01/21/17 at 15:00 Docusate Sodium (Colace) 100 mg BID PO Last administered on 01/27/17 09:41; Admin Dose 100 MG; Start 01/21/17 at 15:00 Quetiapine Fumarate (Seroquel) 200 mg QHS PO Last administered on 01/26/17 20: 52; Admin Dose 200 MG; Start 01/21/17 at 21:00 Ondansetron HCl (Zofran Inj) 4 mg Q6H PRN IV NAUSEA AND/OR VOMITING Last administered on 01/26/17 20:52; Admin Dose 4 MG; Start 01/24/17 at 23:45 Miscellaneous Information (*Rx Drug Level Order Reminder*) RANDOM VANCOMYCIN LEVEL 6... ONCE ONCE XX ; Start 01/28/17 at 05:00; Stop 01/28/17 at 05:01 SCOT DÍAZ Jan 27, 2017 18:23
--- NOTE | 2017-01-27 19:19 | CONS ---
Date/Time of Note Date/Time of Note DATE: 01/27/17 TIME: 19:18 Assessment/Plan Assessment/Plan Chief Complaint/Hosp Course SUBJECTIVE: No acute changes. Awake, looks comfortable, no fevers. INDWELLINGS: Left chest PermCath. MICROBIOLOGY: Blood culture on admission grew gram-positive cocci in pairs and clusters. Urine culture negative. DIAGNOSTICS: Chest x-ray revealed right lower lobe patchy consolidation and small to moderate right-sided pleural effusion. CT of the brain revealed no acute intracranial pathology. ANTIMICROBIALS: 1. IV cefepime. 2. Vancomycin. PHYSICAL EXAMINATION: GENERAL: This is an obese, well-developed, middle-aged man who is alert, in no distress. HEENT: Head atraumatic, normocephalic. Sclerae anicteric. Buccal mucosa pink. NECK: Supple. CHEST: Rise symmetrical. Breath sounds diminished to bases. HEART: S1, S2. ABDOMEN: Soft, bowel sounds present. EXTREMITIES: Without cyanosis. ASSESSMENT: 1. Sepsis with acute encephalopathy, tachycardia, and hypoxemia==> resolving. 2. Staph bacteremia==> r/o line sepsis. 3. Pneumonia. 4. End-stage renal disease, hemodialysis dependent. 5. Diabetes. 6. Chronic obstructive pulmonary disease. 7. Left chest PermCath. PLAN: The patient remains stable. Repeat bld cx 01/26 negative, continue present care, ok dc on IV Vanco for 2 weeks and po Levaquin when medically cleared [facility] staff Problems: Consultation Date/Type/Reason Admit Date/Time Jan 20, 2017 at 15:31 Type of Consultation: ID Referring Provider: SCOT DÍAZ Exam/Review of Systems Vital Signs Vitals Vital Signs Date Time Temp Pulse Resp B/P Pulse Ox O2 Delivery O2 Flow Rate FiO2 01/27/17 11:00 98.4 88 19 138/74 97 Intake and Output 01/26/17 01/26/17 01/27/17 15:00 23:00 07:00 Intake Total 610 ml 850 ml 840 ml Output Total 1700 ml 0 ml Balance -1090 ml 850 ml 840 ml Results Result Diagram: 01/27/17 0637 01/27/17 0637 Results 24 hrs Laboratory Tests Test 01/26/17 20:44 01/27/17 06:37 01/27/17 08:32 01/27/17 12:21 Bedside Glucose 108 71 126 White Blood Count 6.3 Red Blood Count 4.41 L Hemoglobin 12.6 L Hematocrit 41.5 L Mean Corpuscular Volume 94.1 Mean Corpuscular Hemoglobin 28.6 L Mean Corpuscular Hemoglobin Concent 30.4 L Red Cell Distribution Width 17.6 H Platelet Count 99 #L Mean Platelet Volume 12.2 H Neutrophils % 63.1 Lymphocytes % 17.7 Monocytes % 13.1 H Eosinophils % 4.9 Basophils % 0.9 Nucleated Red Blood Cells % 0.0 Neutrophils # 4.0 Lymphocytes # 1.1 Monocytes # 0.8 Eosinophils # 0.3 Basophils # 0.1 Nucleated Red Blood Cells # 0.0 Sodium Level 138 Potassium Level 5.0 Chloride Level 96 L Carbon Dioxide Level 31 Anion Gap 16 Blood Urea Nitrogen 43 H Creatinine 9.08 H Glucose Level 60 #L Calcium Level 9.0 Test 01/27/17 17:25 Bedside Glucose 90 Medications Medications Current Medications Aspirin (Halfprin) 81 mg DAILY PO Last administered on 01/27/17 09:41; Admin Dose 81 MG; Start 01/21/17 at 09:00 Atorvastatin Calcium (Lipitor) 20 mg HS PO Last administered on 01/26/17 20:51 ; Admin Dose 20 MG; Start 01/20/17 at 21:00 Gabapentin (Neurontin) 100 mg BID PO Last administered on 01/27/17 09:41; Admin Dose 100 MG; Start 01/20/17 at 21:00 Lisinopril (Zestril) 2.5 mg DAILY PO Last administered on 01/27/17 09:46; Admin Dose 2.5 MG; Start 01/21/17 at 09:00 Insulin Glargine (Lantus) 17 unit DAILY@20 SC Last administered on 01/26/17 21: 01; Admin Dose 17 UNIT; Start 01/20/17 at 20:00 Miscellaneous Information 1 ea NOTE XX ; Start 01/20/17 at 17:30 Glucose (Glutose) 15 gm Q15M PRN PO DECREASED GLUCOSE; Start 01/20/17 at 17:30 Glucose (Glutose) 22.5 gm Q15M PRN PO DECREASED GLUCOSE; Start 01/20/17 at 17:30 Dextrose (D50w Syringe) 25 ml Q15M PRN IV DECREASED GLUCOSE; Start 01/20/17 at 17:30 Dextrose (D50w Syringe) 50 ml Q15M PRN IV DECREASED GLUCOSE; Start 01/20/17 at 17:30 Glucagon (Glucagen) 1 mg Q15M PRN IM DECREASED GLUCOSE; Start 01/20/17 at 17:30 Glucose (Glutose) 15 gm Q15M PRN BUCCAL DECREASED GLUCOSE; Start 01/20/17 at 17: 30 Diagnostic Test (Pha) (Accu-Chek) 1 ea 02 XX Last administered on 01/26/17 02: 00; Admin Dose 1 EA; Start 01/21/17 at 02:00 Morphine Sulfate (morphine) 2 mg Q4 PRN IV PAIN Last administered on 01/27/17 17:19; Admin Dose 2 MG; Start 01/20/17 at 19:00 Zolpidem Tartrate (Ambien) 5 mg HS PRN PO INSOMNIA Last administered on 22:14; Admin Dose 5 MG; Start 01/20/17 at 23:30 Oxycodone/ Acetaminophen 1 tab 1 tab Q6H PRN PO PAIN Last administered on 13:43; Admin Dose 1 TAB; Start 01/21/17 at 13:30 Cefepime HCl (Maxipime 1gm/50 ml (Pmx)) 50 ml @ 100 mls/hr Q24H IVPB Last administered on 01/27/17 13:35; Admin Dose 100 MLS/HR; Start 01/21/17 at 14:00 Polyethylene Glycol (Miralax) 17 gm DAILY PO Last administered on 01/26/17 08: 50; Admin Dose 17 GM; Start 01/21/17 at 15:00 Docusate Sodium (Colace) 100 mg BID PO Last administered on 01/27/17 09:41; Admin Dose 100 MG; Start 01/21/17 at 15:00 Quetiapine Fumarate (Seroquel) 200 mg QHS PO Last administered on 01/26/17 20: 52; Admin Dose 200 MG; Start 01/21/17 at 21:00 Ondansetron HCl (Zofran Inj) 4 mg Q6H PRN IV NAUSEA AND/OR VOMITING Last administered on 01/26/17 20:52; Admin Dose 4 MG; Start 01/24/17 at 23:45 Miscellaneous Information (*Rx Drug Level Order Reminder*) RANDOM VANCOMYCIN LEVEL 6... ONCE ONCE XX ; Start 01/28/17 at 05:00; Stop 01/28/17 at 05:01 AUBRIE MORGAN NP Jan 27, 2017 19:19
[2017-01-27 20:23] VITALS: BP 143/83; RESP 17
[2017-01-27] MEDS: QUETIAPINE 100 MG TAB PO SCH (20:49)
[2017-01-27] MEDS: ATORVASTATIN 20 MG TAB PO SCH (20:50)
[2017-01-27] MEDS: INSULIN GLARGINE [LANtus] 3 ML PEN SC SCH (20:53)
[2017-01-28] VITALS (21 sets, daily range): BP systolic 97–201; BP diastolic 65–95; PULSE 79–103; RESP 6–26
[2017-01-28] MEDS: ACCUCHECK AT 2AM (Patients on SS coverage) XX SCH (02:00)
[2017-01-28] MEDS: LEVOTHYROXINE 150 MCG TAB PO SCH (05:50)
[2017-01-28 06:04] LABS: ADD SCAN DIFF NO
[2017-01-28 06:12] LABS: BASOPHILS % 0.6 % (0.0-2.0); EOSINOPHILS # 0.3 10^3/ul (0.0-0.5); HEMATOCRIT 36.9 % (42.0-52.0); HEMOGLOBIN 11.4 g/dl (14.0-18.0); LYMPHOCYTES # 0.9 10^3/ul (0.8-2.9); MEAN CORPUSCULAR HEMOGLOBIN 28.6 pg (29.0-33.0); MEAN CORPUSCULAR HGB CONC 30.9 g/dl (32.0-37.0); MEAN CORPUSCULAR VOLUME 92.5 fl (82.0-101.0); MEAN PLATELET VOLUME 11.1 fl (7.4-10.4); MONOCYTE # 0.6 10^3/ul (0.3-0.9); MONOCYTES % 8.5 % (0.0-11.0); NEUTROPHIL # 4.7 10^3/ul (1.6-7.5); NEUTROPHILS % 72.6 % (39.0-77.0); PLATELET COUNT 112 10^3/UL (140-415); RED BLOOD COUNT 3.99 10^6/ul (4.70-6.10); RED CELL DISTRIBUTION WIDTH 17.4 % (11.5-14.5); WHITE BLOOD COUNT 6.5 10^3/ul (4.8-10.8)
[2017-01-28 06:44] LABS: CREATININE 10.59 mg/dl (0.61-1.24); MAGNESIUM 2.3 mg/dl (1.7-2.5); PHOSPHORUS 8.4 mg/dl (2.5-4.9); POTASSIUM 4.6 mmol/L (3.5-5.1)
[2017-01-28] MEDS: INSULIN ASPART [NOVOLOG] 3 ML PEN SC SCH ×4 (07:55→20:40)
[2017-01-28] MEDS: SEVELAMER 800 MG TAB PO SCH ×3 (08:30→17:43)
[2017-01-28] MEDS: DOCUSATE SODIUM 100 MG CAP PO SCH ×2 (08:30→22:47)
[2017-01-28] MEDS: POLYETHYLENE GLYCOL 17 GM PACKET PO SCH (08:31)
[2017-01-28] MEDS: GABAPENTIN 100 MG CAP PO SCH ×2 (08:31→22:47)
[2017-01-28] MEDS: LISINOPRIL 5 MG TAB PO SCH (08:31)
[2017-01-28] MEDS: ASPIRIN (EC) 81 MG TAB PO SCH (08:32)
--- NOTE | 2017-01-28 08:33 | PN ---
Date/Time of Note Date/Time of Note DATE: 01/28/17 TIME: 08:29 Assessment/Plan VTE Prophylaxis VTE Prophylaxis Intervention: ambulation Lines/Catheters IV C[facility]ter Type (from [facility]): Saline Lock Assessment/Plan Assessment/Plan 1. End-stage renal disease. -last hd was sunday -plan for hd tomorrow 2. Hyperkalemia secondary to end-stage renal disease. -K level have improved -cont low potassium diet 3. Anemia. Continue to monitor hemoglobin and hematocrit levels. 4. Mineral bone disorder. Continue to monitor calcium and phosphorus levels. Continue phos binders. 5. Volume overload, improving. Continue ultrafiltration with dialysis. 6. Acute encephalopathy, etiology is toxic metabolic, possibly uremic. Continue to monitor. 7. Access. The patient has PermCath. No noted problems with catheter function. 8. Sepsis. The patient is clinically improving. Continue current antibiotic regimen. 9. Diabetes. Continue Accu-Cheks and insulin sliding scale. 10. Hypertensive. Continue Synthroid. 11. Bipolar disorder. Continue medical management. 12. Cardiomyopathy. Continue current treatment plan. Subjective 24 Hr Interval Summary Free Text/Dictation The patient is stable, had hemodialysis yesterday. No other acute events noted. No hemoptysis, hematemesis, or hematochezia. Exam/Review of Systems Vital Signs Vitals Vital Signs Date Time Temp Pulse Resp B/P Pulse Ox O2 Delivery O2 Flow Rate FiO2 01/28/17 07:17 98.6 93 18 128/86 93 Intake and Output 01/27/17 01/27/17 01/28/17 15:00 23:00 07:00 Intake Total 160 ml 800 ml 600 ml Output Total 0 ml Balance 160 ml 800 ml 600 ml Exam HEENT: Head is normocephalic. NECK: Supple. HEART: Regular rate. LUNGS: Show diminished breath sounds at the base. ABDOMEN: Soft, nontender to palpation. No rebound or guarding. EXTREMITIES: Negative for clubbing, cyanosis, no edema. DERMATOLOGIC: No rashes. MUSCULOSKELETAL: No joint effusions. NEUROLOGIC: No change in exam. Results Result Diagram: 01/28/17 0530 01/28/17 0530 Results 24 hrs Laboratory Tests Test 01/27/17 08:32 01/27/17 12:21 01/27/17 17:25 01/27/17 19:55 Bedside Glucose 71 126 90 100 Test 01/28/17 05:30 01/28/17 08:02 White Blood Count 6.5 Red Blood Count 3.99 L Hemoglobin 11.4 L Hematocrit 36.9 L Mean Corpuscular Volume 92.5 Mean Corpuscular Hemoglobin 28.6 L Mean Corpuscular Hemoglobin Concent 30.9 L Red Cell Distribution Width 17.4 H Platelet Count 112 L Mean Platelet Volume 11.1 H Neutrophils % 72.6 Lymphocytes % 14.0 L Monocytes % 8.5 Eosinophils % 4.0 Basophils % 0.6 Nucleated Red Blood Cells % 0.0 Neutrophils # 4.7 Lymphocytes # 0.9 Monocytes # 0.6 Eosinophils # 0.3 Basophils # 0.0 Nucleated Red Blood Cells # 0.0 Sodium Level 138 Potassium Level 4.6 Chloride Level 96 L Carbon Dioxide Level 30 Anion Gap 17 H Blood Urea Nitrogen 50 H Creatinine 10.59 H Glucose Level 77 Calcium Level 9.0 Phosphorus Level 8.4 H Magnesium Level 2.3 Random Vancomycin Level 18.2 Bedside Glucose 76 Medications Medications Current Medications Aspirin (Halfprin) 81 mg DAILY PO Last administered on 01/27/17 09:41; Admin Dose 81 MG; Start 01/21/17 at 09:00 Atorvastatin Calcium (Lipitor) 20 mg HS PO Last administered on 01/27/17 20:50 ; Admin Dose 20 MG; Start 01/20/17 at 21:00 Gabapentin (Neurontin) 100 mg BID PO Last administered on 01/27/17 20:50; Admin Dose 100 MG; Start 01/20/17 at 21:00 Lisinopril (Zestril) 2.5 mg DAILY PO Last administered on 01/27/17 09:46; Admin Dose 2.5 MG; Start 01/21/17 at 09:00 Insulin Glargine (Lantus) 17 unit DAILY@20 SC Last administered on 01/27/17 20 :53; Admin Dose 17 UNIT; Start 01/20/17 at 20:00 Miscellaneous Information 1 ea NOTE XX ; Start 01/20/17 at 17:30 Glucose (Glutose) 15 gm Q15M PRN PO DECREASED GLUCOSE; Start 01/20/17 at 17:30 Glucose (Glutose) 22.5 gm Q15M PRN PO DECREASED GLUCOSE; Start 01/20/17 at 17:30 Dextrose (D50w Syringe) 25 ml Q15M PRN IV DECREASED GLUCOSE; Start 01/20/17 at 17:30 Dextrose (D50w Syringe) 50 ml Q15M PRN IV DECREASED GLUCOSE; Start 01/20/17 at 17:30 Glucagon (Glucagen) 1 mg Q15M PRN IM DECREASED GLUCOSE; Start 01/20/17 at 17:30 Glucose (Glutose) 15 gm Q15M PRN BUCCAL DECREASED GLUCOSE; Start 01/20/17 at 17: 30 Diagnostic Test (Pha) (Accu-Chek) 1 ea 02 XX Last administered on 01/26/17 02: 00; Admin Dose 1 EA; Start 01/21/17 at 02:00 Morphine Sulfate (morphine) 2 mg Q4 PRN IV PAIN Last administered on 01/27/17 21:02; Admin Dose 2 MG; Start 01/20/17 at 19:00 Zolpidem Tartrate (Ambien) 5 mg HS PRN PO INSOMNIA Last administered on 22:14; Admin Dose 5 MG; Start 01/20/17 at 23:30 Oxycodone/ Acetaminophen 1 tab 1 tab Q6H PRN PO PAIN Last administered on 13:43; Admin Dose 1 TAB; Start 01/21/17 at 13:30 Cefepime HCl (Maxipime 1gm/50 ml (Pmx)) 50 ml @ 100 mls/hr Q24H IVPB Last administered on 01/27/17 13:35; Admin Dose 100 MLS/HR; Start 01/21/17 at 14:00 Polyethylene Glycol (Miralax) 17 gm DAILY PO Last administered on 01/26/17 08: 50; Admin Dose 17 GM; Start 01/21/17 at 15:00 Docusate Sodium (Colace) 100 mg BID PO Last administered on 01/27/17 20:50; Admin Dose 100 MG; Start 01/21/17 at 15:00 Quetiapine Fumarate (Seroquel) 200 mg QHS PO Last administered on 01/27/17 20: 49; Admin Dose 200 MG; Start 01/21/17 at 21:00 Ondansetron HCl (Zofran Inj) 4 mg Q6H PRN IV NAUSEA AND/OR VOMITING Last administered on 6/9/17at 20:52; Admin Dose 4 MG; Start 01/24/17 at 23:45 KERI DE SOUZA DO Jan 28, 2017 08:33
--- NOTE | 2017-01-28 11:32 | PN ---
Date/Time of Note Date/Time of Note DATE: 01/28/17 TIME: 11:24 Assessment/Plan VTE Prophylaxis VTE Prophylaxis Intervention: heparin Lines/Catheters IV Catheter Type (from [facility]): Saline Lock Assessment/Plan Chief Complaint/Hosp Course 1. Acute metabolic encephalopathy likely secondary to HAND SHAPER disorder/ psychiatric disorder, sepsis as etiology for encephalopathy is less likely at this time as patient has been on antibiotics for over a week now and his mentation has not improved Neurology consultation appreciated, MRI brain shows no acute findings Patient reports persistent stuttering and difficulty with speech as well as spastic movements, patient's home psych meds have been restarted Patient will need rehab placement for improvement of his speech as well as physical therapy, patient is unable to care for himself at home at this time and hence case management consult will be placed to assist with rehab placement 2. Right-sided pneumonia with right-sided pleural effusion Continue antibiotics 3. Sepsis with bacteremia likely secondary to right-sided pneumonia versus line sepsis Patient has had 2 prior episodes of line sepsis Repeat blood cultures are negative at 1 day, patient may still need vancomycin IV for 2 weeks plus Levaquin p.o. 2 weeks, will discuss with ID 4. End-stage renal disease on hemodialysis Continue HD per renal 5. Chronic back and LE pain 6. Hyperkalemia secondary to renal disease 7. Chronic normocytic normochromic anemia of renal disease 8. Cardiomyopathy with last known EF of 24% for which patient refused AICD 9. Hypothyroidism 10. Diabetes mellitus type 2 Discontinued metformin in this patient with end-stage renal disease 11. Chronic depression Continue home meds 12. Thrombocytopenia-mild 13. Anemia of chronic disease and end-stage renal disease 14. History of Non compliance Prophylaxis with heparin and PPI Discharge planning: Patient will need rehab placement is unable to care for himself at this time, patient would benefit from speech therapy and PT Problems: Subjective 24 Hr Interval Summary Neurologic: confusion Exam/Review of Systems Vital Signs Vitals Vital Signs Date Time Temp Pulse Resp B/P Pulse Ox O2 Delivery O2 Flow Rate FiO2 01/28/17 10:58 93.0 103 16 131/82 94 Room Air Intake and Output 01/27/17 01/27/17 01/28/17 15:00 23:00 07:00 Intake Total 160 ml 800 ml 600 ml Output Total 0 ml Balance 160 ml 800 ml 600 ml Exam Constitutional: alert Psych: confusion Respiratory: clear to auscultation Cardiovascular: regular rate and rhythm Gastrointestinal: soft, No distended Musculoskeletal: nl extremities to inspection Results Result Diagram: 01/28/17 0530 01/28/17 0530 Results 24 hrs Laboratory Tests Test 01/27/17 12:21 01/27/17 17:25 01/27/17 19:55 01/28/17 05:30 Bedside Glucose 126 90 100 White Blood Count 6.5 Red Blood Count 3.99 L Hemoglobin 11.4 L Hematocrit 36.9 L Mean Corpuscular Volume 92.5 Mean Corpuscular Hemoglobin 28.6 L Mean Corpuscular Hemoglobin Concent 30.9 L Red Cell Distribution Width 17.4 H Platelet Count 112 L Mean Platelet Volume 11.1 H Neutrophils % 72.6 Lymphocytes % 14.0 L Monocytes % 8.5 Eosinophils % 4.0 Basophils % 0.6 Nucleated Red Blood Cells % 0.0 Neutrophils # 4.7 Lymphocytes # 0.9 Monocytes # 0.6 Eosinophils # 0.3 Basophils # 0.0 Nucleated Red Blood Cells # 0.0 Sodium Level 138 Potassium Level 4.6 Chloride Level 96 L Carbon Dioxide Level 30 Anion Gap 17 H Blood Urea Nitrogen 50 H Creatinine 10.59 H Glucose Level 77 Calcium Level 9.0 Phosphorus Level 8.4 H Magnesium Level 2.3 Random Vancomycin Level 18.2 Test 01/28/17 08:02 01/28/17 11:05 Bedside Glucose 76 101 Medications Medications Current Medications Aspirin (Halfprin) 81 mg DAILY PO Last administered on 01/28/17 08:32; Admin Dose 81 MG; Start 01/21/17 at 09:00 Atorvastatin Calcium (Lipitor) 20 mg HS PO Last administered on 01/27/17 20:50 ; Admin Dose 20 MG; Start 01/20/17 at 21:00 Gabapentin (Neurontin) 100 mg BID PO Last administered on 01/28/17 08:31; Admin Dose 100 MG; Start 01/20/17 at 21:00 Lisinopril (Zestril) 2.5 mg DAILY PO Last administered on 01/28/17 08:31; Admin Dose 2.5 MG; Start 01/21/17 at 09:00 Insulin Glargine (Lantus) 17 unit DAILY@20 SC Last administered on 01/27/17 20 :53; Admin Dose 17 UNIT; Start 01/20/17 at 20:00 Miscellaneous Information 1 ea NOTE XX ; Start 01/20/17 at 17:30 Glucose (Glutose) 15 gm Q15M PRN PO DECREASED GLUCOSE; Start 01/20/17 at 17:30 Glucose (Glutose) 22.5 gm Q15M PRN PO DECREASED GLUCOSE; Start 01/20/17 at 17:30 Dextrose (D50w Syringe) 25 ml Q15M PRN IV DECREASED GLUCOSE; Start 01/20/17 at 17:30 Dextrose (D50w Syringe) 50 ml Q15M PRN IV DECREASED GLUCOSE; Start 01/20/17 at 17:30 Glucagon (Glucagen) 1 mg Q15M PRN IM DECREASED GLUCOSE; Start 01/20/17 at 17:30 Glucose (Glutose) 15 gm Q15M PRN BUCCAL DECREASED GLUCOSE; Start 01/20/17 at 17: 30 Diagnostic Test (Pha) (Accu-Chek) 1 ea 02 XX Last administered on 01/26/17 02: 00; Admin Dose 1 EA; Start 01/21/17 at 02:00 Morphine Sulfate (morphine) 2 mg Q4 PRN IV PAIN Last administered on 01/27/17 21:02; Admin Dose 2 MG; Start 01/20/17 at 19:00 Zolpidem Tartrate (Ambien) 5 mg HS PRN PO INSOMNIA Last administered on 22:14; Admin Dose 5 MG; Start 01/20/17 at 23:30 Oxycodone/ Acetaminophen 1 tab 1 tab Q6H PRN PO PAIN Last administered on 13:43; Admin Dose 1 TAB; Start 01/21/17 at 13:30 Cefepime HCl (Maxipime 1gm/50 ml (Pmx)) 50 ml @ 100 mls/hr Q24H IVPB Last administered on 01/27/17 13:35; Admin Dose 100 MLS/HR; Start 01/21/17 at 14:00 Polyethylene Glycol (Miralax) 17 gm DAILY PO Last administered on 01/26/17 08: 50; Admin Dose 17 GM; Start 01/21/17 at 15:00 Docusate Sodium (Colace) 100 mg BID PO Last administered on 01/28/17 08:30; Admin Dose 100 MG; Start 01/21/17 at 15:00 Quetiapine Fumarate (Seroquel) 200 mg QHS PO Last administered on 01/27/17 20: 49; Admin Dose 200 MG; Start 01/21/17 at 21:00 Ondansetron HCl 4 mg 4 mg Q6H PRN IV NAUSEA AND/OR VOMITING Last administered on 01/26/17 20:52; Admin Dose 4 MG; Start 01/24/17 at 23:45 Vancomycin HCl (Vancocin) 250 ml @ 125 mls/hr Q5D IVPB ; Start 01/28/17 at 22: 00 SCOT DÍAZ Jan 28, 2017 11:32
[2017-01-28 13:03] LABS: AADO2 Arterial 281.5 mmHg (7.0-24.0); Allen Test ACCEPTAB; Arterial Base Excess -7.6 mmol/L (-3.0-3); Arterial COHb 0.7 % (0.0-3.0); Arterial Fraction of Oxyhgb 98.6 % (93.0-99.0); Arterial HCO3 20.3 mmol/L (22.0-26.0); Arterial MetHb 0.3 % (0.0-1.5); Arterial Total Hemglobin 13.4 g/dl (12.0-18.0); MODE MASK - NRB
--- NOTE | 2017-01-28 13:25 | RADRPT ---
PROCEDURE: Noncontrast head CT scan. CLINICAL INDICATION: Altered mental status, code stroke TECHNIQUE: Noncontrast head CT scan was performed on the CT scanner. Exam D L P 720 mgy per cm. C TD vol 44 mgy. Sagittal and coronal re-formations were performed. COMPARISON: MRI of the brain January 27, 2017 FINDINGS: The ventricles and sulci are appropriate for a patient of this age. No acute intracranial hemorrhag e, subdural fluid collection, acute infarction or mass lesion. The basal cisterns are patent. The posterior fossa is unremarkable. The skull is intact. The orbits and globes are intact. The sinuses and mastoid air cells are clear . IMPRESSION: Negative exam. No interval change. These results were discussed with Dr. Matos on January 28, at 01:25 p.m. RPTAT: PP .Shagufta Kaye MD, MD Date Time Electronically viewed and signed by .Shagufta Kaye MD, MD on 01/28/2017 13:25 .F/
--- NOTE | 2017-01-28 14:28 | RADRPT ---
PROCEDURE: XR Chest. CLINICAL INDICATION: Aspiration. TECHNIQUE: Single frontal view of the chest was obtained. COMPARISON: Chest x-ray 04/15/2016 06:36 a.m. FINDINGS: There is a dialysis catheter entering from a left subclavian approach with its tip in the superior v em cava. The heart is enlarged. Monitoring electrodes are draped across the chest.. The bony murali ments are normal. The cardiomediastinal silhouette and hilar structures are normal. The pulmonary v asculature is normal. There is a left-sided aorta. There are infiltrates in the right lung associat ed with a right pleural effusion. The right pleural effusion decreased in size compared to the prio r study. The left pleural effusion seen on the prior study has decreased in size. The interstitial pulmonary edema seen in the perihilar areas and left lung has resolved. IMPRESSION: 1. There are asymmetric infiltrates in the right lung with a partially loculated moderate-sized righ t pleural effusion. 2. Cardiomegaly. 3. Resolution of the pulmonary venous obstruction seen on the earlier study with interval clearing of perihilar interstitial infiltrates seen in the left lung. 4. Atherosclerotic vascular disease. 5. Left internal jugular tunnel dialysis catheter. RPTAT:AAJJ Physician Juju Date Time Electronically viewed and signed by Jeffry Pace Physician on 01/28/2017 14:27 KISHAN/
--- NOTE | 2017-01-28 14:37 | RADRPT ---
Vent Rate: 101 bpm RR Interval: 0 msec VT Interval: 160 msec QRS Duration: 154 msec QT Interval: 416 msec QTC Interval: 539 msec P-R-T [place]: 49 - 0 - 38 degrees Sinus tachycardia Right bundle branch block Indeterminate [place] LAE Abnormal ECG No previous tracing available for comparison Electronically Signed By: Edson Mcnair [id number]
[2017-01-28] MEDS: CEFEPIME 1GM/50 ML (PMX) 50 ML IVPB SCH (15:01)
--- NOTE | 2017-01-28 15:36 | CONS ---
Date/Time of Note Date/Time of Note DATE: 01/28/17 TIME: 15:29 Consult Date/Type/Reason Admit Date/Time Jan 20, 2017 at 15:31 Initial Consult Date 01/26/17 Type of Consultation: Neurology Reason for Consultation encephalopathy Ordering Provider: SCOT DÍAZ Subjective became unresponsive this morning encephalopathic with nonsensical speech not following commands well CTH showed no acute changes MRI done on 01/27 shows no acute pathology Objective Vital Signs Date Time Temp Pulse Resp B/P Pulse Ox O2 Delivery O2 Flow Rate FiO2 01/28/17 15:00 88 19 138/88 100 Nasal Cannula 2.0 01/28/17 14:00 97.6 Intake and Output 01/27/17 01/27/17 01/28/17 15:00 23:00 07:00 Intake Total 160 ml 800 ml 600 ml Output Total 0 ml Balance 160 ml 800 ml 600 ml Exam awake and alert oriented to hospital very encephalopathic not answering questions appropriately repeating himself speech is non-sensical can name only 1 object CN: MARIA DEL ROSARIO, blinks to threat, no sig. facial, dysarthria is present tongue is red and bloody Motor: withdraws briefly anti-gravity in all extremities Coordination: uncooperative with testing Results/Medications Result Diagram: 01/28/17 0530 01/28/17 0530 Results 24 hrs Laboratory Tests Test 01/27/17 17:25 01/27/17 19:55 01/28/17 05:30 01/28/17 08:02 Bedside Glucose 90 100 76 White Blood Count 6.5 Red Blood Count 3.99 L Hemoglobin 11.4 L Hematocrit 36.9 L Mean Corpuscular Volume 92.5 Mean Corpuscular Hemoglobin 28.6 L Mean Corpuscular Hemoglobin Concent 30.9 L Red Cell Distribution Width 17.4 H Platelet Count 112 L Mean Platelet Volume 11.1 H Neutrophils % 72.6 Lymphocytes % 14.0 L Monocytes % 8.5 Eosinophils % 4.0 Basophils % 0.6 Nucleated Red Blood Cells % 0.0 Neutrophils # 4.7 Lymphocytes # 0.9 Monocytes # 0.6 Eosinophils # 0.3 Basophils # 0.0 Nucleated Red Blood Cells # 0.0 Sodium Level 138 Potassium Level 4.6 Chloride Level 96 L Carbon Dioxide Level 30 Anion Gap 17 H Blood Urea Nitrogen 50 H Creatinine 10.59 H Glucose Level 77 Calcium Level 9.0 Phosphorus Level 8.4 H Magnesium Level 2.3 Random Vancomycin Level 18.2 Test 01/28/17 11:05 01/28/17 12:44 01/28/17 12:51 01/28/17 13:00 Bedside Glucose 101 109 Blood Gas Specimen Source Blood arterial Arterial Blood Date Drawn 01/28/2017 12:52:20 PM Arterial Blood pH (Temp corrected) 7.221 *L Arterial Blood pCO2 (Temp correct) 50.5 H Arterial Blood pO2 (Temp corrected) 381.0 H Arterial Blood HCO3 20.3 L Arterial Blood Base Excess -7.6 L Arterial Blood Oxygen Saturation 99.6 H Roe Test ACCEPTAB Arterial Blood Gas Puncture Site Left Radial Arterial Blood Carboxyhemoglobin 0.7 Arterial Blood Methemoglobin 0.3 Blood Gas A-a O2 Differential 281.5 H Oxyhemoglobin Percent 98.6 Total Hemoglobin 13.4 Blood Gas Temperature 37.0 Blood Gas Modality MASK - NRB FiO2 100.0 Blood Gas Critical Value Read Back TERRA MOREAU Blood Gas Notified Whom [place] Blood Gas Notified Time 01/28/2017 1:00:15 PM Ammonia 45 H Medications Current Medications Aspirin (Halfprin) 81 mg DAILY PO Last administered on 01/28/17 08:32; Admin Dose 81 MG; Start 01/21/17 at 09:00 Atorvastatin Calcium (Lipitor) 20 mg HS PO Last administered on 01/27/17 20:50 ; Admin Dose 20 MG; Start 01/20/17 at 21:00 Gabapentin (Neurontin) 100 mg BID PO Last administered on 01/28/17 08:31; Admin Dose 100 MG; Start 01/20/17 at 21:00 Lisinopril (Zestril) 2.5 mg DAILY PO Last administered on 01/28/17 08:31; Admin Dose 2.5 MG; Start 01/21/17 at 09:00 Insulin Glargine (Lantus) 17 unit DAILY@20 SC Last administered on 01/27/17 20 :53; Admin Dose 17 UNIT; Start 01/20/17 at 20:00 Miscellaneous Information 1 ea NOTE XX ; Start 01/20/17 at 17:30 Glucose (Glutose) 15 gm Q15M PRN PO DECREASED GLUCOSE; Start 01/20/17 at 17:30 Glucose (Glutose) 22.5 gm Q15M PRN PO DECREASED GLUCOSE; Start 01/20/17 at 17:30 Dextrose (D50w Syringe) 25 ml Q15M PRN IV DECREASED GLUCOSE; Start 01/20/17 at 17:30 Dextrose (D50w Syringe) 50 ml Q15M PRN IV DECREASED GLUCOSE; Start 01/20/17 at 17:30 Glucagon (Glucagen) 1 mg Q15M PRN IM DECREASED GLUCOSE; Start 01/20/17 at 17:30 Glucose (Glutose) 15 gm Q15M PRN BUCCAL DECREASED GLUCOSE; Start 01/20/17 at 17: 30 Diagnostic Test (Pha) (Accu-Chek) 1 ea 02 XX Last administered on 01/26/17 02: 00; Admin Dose 1 EA; Start 01/21/17 at 02:00 Morphine Sulfate (morphine) 2 mg Q4 PRN IV PAIN Last administered on 01/27/17 21:02; Admin Dose 2 MG; Start 01/20/17 at 19:00 Zolpidem Tartrate (Ambien) 5 mg HS PRN PO INSOMNIA Last administered on 22:14; Admin Dose 5 MG; Start 01/20/17 at 23:30 Oxycodone/ Acetaminophen 1 tab 1 tab Q6H PRN PO PAIN Last administered on 13:43; Admin Dose 1 TAB; Start 01/21/17 at 13:30 Cefepime HCl (Maxipime 1gm/50 ml (Pmx)) 50 ml @ 100 mls/hr Q24H IVPB Last administered on 01/28/17 15:01; Admin Dose 100 MLS/HR; Start 01/21/17 at 14:00 Polyethylene Glycol (Miralax) 17 gm DAILY PO Last administered on 01/26/17 08: 50; Admin Dose 17 GM; Start 01/21/17 at 15:00 Docusate Sodium (Colace) 100 mg BID PO Last administered on 01/28/17 08:30; Admin Dose 100 MG; Start 01/21/17 at 15:00 Quetiapine Fumarate (Seroquel) 200 mg QHS PO Last administered on 01/27/17 20: 49; Admin Dose 200 MG; Start 01/21/17 at 21:00 Ondansetron HCl 4 mg 4 mg Q6H PRN IV NAUSEA AND/OR VOMITING Last administered on 01/26/17t 20:52; Admin Dose 4 MG; Start 01/24/17 at 23:45 Vancomycin HCl (Vancocin) 250 ml @ 125 mls/hr Q5D IVPB ; Start 01/28/17 at 22: 00 Assessment/Plan Chief Complaint/Hosp Course 56 yo male ESRD, DM, hypothyroidism, ischemic CM admitted with pneumonia and encephalopathy with active metabolic issues. Episode of unresponsiveness this am, possible seizure? remains encephalopathic. Recommend: Head CT unrevealing, if no improvement in mental status will reorder MRI Routine EEG discontinue narcotics stopped morphine and oxycodone continue frequent neuro checks will follow Problems: MONY GRIFFIN MD Jan 28, 2017 15:36
[2017-01-28] MEDS: INSULIN GLARGINE [LANtus] 3 ML PEN SC SCH (20:00)
--- NOTE | 2017-01-28 20:23 | PN ---
DATE: 01/28/2017 SUBJECTIVE: The patient was transferred to ICU secondary to acute encephalopathy, possible new CVA. He is now more awake and responsive, however still confused. No fevers. WBC 6.5 with platelets 112. No shift. INDWELLINGS: PermCath. Blood cultures since 01/26 remain negative. DIAGNOSTICS: MRI of the brain showed no evidence for acute intracranial pathology, mild chronic paranasal sinus disease. ANTIMICROBIALS: The patient is on: 1. IV vancomycin. 2. Cefepime. PHYSICAL EXAMINATION: GENERAL: This is an obese, chronically ill-appearing middle-aged man who is awake, somewhat confused and in no distress. HEENT: Head atraumatic, normocephalic. Sclerae anicteric. Buccal mucosa dry. NECK: Supple. CHEST: Rise symmetrical. Breath sounds diminished. HEART: S1, S2. ABDOMEN: Soft. Bowel tones present. EXTREMITIES: No cyanosis. ASSESSMENT: 1. Acute encephalopathy, resolving, etiology unclear, rule out aspiration event. 2. Pneumonia. 3. Sepsis with tachycardia, hypoxemia and acute encephalopathy present on admission, remains on broad-spectrum antibiotics. 4. Staphylococcus bacteremia with repeat blood cultures have been negative day #3 although repeated after patient was initiated on antibiotic therapy. 5. End-stage renal disease, hemodialysis dependent. 6. Left chest PermCath. 7. Diabetes. PLAN: The patient is hemodynamically stable, on appropriate antimicrobials. Neurology on case. We will continue him on current antimicrobials, follow chest x-ray in a.m. Dictated By: AUBRIE MORGAN STATE DIRECTOR for GIS[employer] CHRISTENSEN/LEAH Conf#: [id number] DID#: [id number]
[2017-01-28] MEDS ORDERED: hydrALAzine 20 MG INJ IV PRN (21:30)
[2017-01-28] MEDS: ATORVASTATIN 20 MG TAB PO SCH (22:46)
[2017-01-28] MEDS: VANCOMYCIN 1 GM in NS 250 ML IVPB SCH (22:46)
[2017-01-28] MEDS: QUETIAPINE 100 MG TAB PO SCH (22:47)
[2017-01-29] VITALS (32 sets, daily range): BP systolic 91–167; BP diastolic 62–102; PULSE 70–113; RESP 4–22
[2017-01-29] MEDS: ACCUCHECK AT 2AM (Patients on SS coverage) XX SCH (01:36)
[2017-01-29] MEDS: INSULIN ASPART [NOVOLOG] 3 ML PEN SC SCH ×4 (07:35→21:00)
[2017-01-29 08:05] LABS: ADD SCAN DIFF NO
[2017-01-29 08:19] LABS: ABNORMAL IP MESSAGE 1; BASOPHIL # 0.1 10^3/ul (0.0-0.1); BASOPHILS % 0.7 % (0.0-2.0); EOSINOPHILS # 0.3 10^3/ul (0.0-0.5); EOSINOPHILS % 4.1 % (0.0-7.0); HEMATOCRIT 39.7 % (42.0-52.0); HEMOGLOBIN 12.5 g/dl (14.0-18.0); LYMPHOCYTES % 13.3 % (15.0-51.0); MEAN CORPUSCULAR HGB CONC 31.5 g/dl (32.0-37.0); MEAN CORPUSCULAR VOLUME 92.1 fl (82.0-101.0); MONOCYTE # 0.7 10^3/ul (0.3-0.9); MONOCYTES % 9.2 % (0.0-11.0); NEUTROPHIL # 5.4 10^3/ul (1.6-7.5); NEUTROPHILS % 72.4 % (39.0-77.0); PLATELET COUNT 102 10^3/UL (140-415); RED BLOOD COUNT 4.31 10^6/ul (4.70-6.10); RED CELL DISTRIBUTION WIDTH 17.3 % (11.5-14.5); WHITE BLOOD COUNT 7.4 10^3/ul (4.8-10.8)
[2017-01-29 08:27] LABS: CALCIUM 9.4 mg/dl (8.4-10.2); CREATININE 11.83 mg/dl (0.61-1.24); POTASSIUM 5.4 mmol/L (3.5-5.1)
[2017-01-29] MEDS: LISINOPRIL 5 MG TAB PO SCH (08:30)
[2017-01-29] MEDS: ASPIRIN (EC) 81 MG TAB PO SCH (08:30)
[2017-01-29] MEDS: GABAPENTIN 100 MG CAP PO SCH ×2 (08:30→20:55)
[2017-01-29] MEDS: SEVELAMER 800 MG TAB PO SCH ×3 (08:30→17:57)
[2017-01-29] MEDS: DOCUSATE SODIUM 100 MG CAP PO SCH ×2 (08:31→20:55)
[2017-01-29] MEDS: LEVOTHYROXINE 150 MCG TAB PO SCH (08:31)
[2017-01-29] MEDS: POLYETHYLENE GLYCOL 17 GM PACKET PO SCH (08:31)
--- NOTE | 2017-01-29 08:43 | PN ---
Date/Time of Note Date/Time of Note DATE: 01/29/17 TIME: 08:41 Assessment/Plan VTE Prophylaxis VTE Prophylaxis Intervention: ambulation, anti-embolic stocking Lines/Catheters IV Catheter Type (from Nrsg): Saline Lock Assessment/Plan Assessment/Plan 1. End-stage renal disease. -plan for hd today 2. Hyperkalemia secondary to end-stage renal disease. -K level have improved -cont low potassium diet 3. Anemia. Continue to monitor hemoglobin and hematocrit levels. 4. Mineral bone disorder. Continue to monitor calcium and phosphorus levels. Continue phos binders. 5. Volume overload, improving. Continue ultrafiltration with dialysis. 6. Acute encephalopathy, etiology is toxic metabolic, possibly uremic -code stroke was called, ct head negative -eeg pending -HD today 7. Access. The patient has PermCath. No noted problems with catheter function. 8. Sepsis. The patient is clinically improving. Continue current antibiotic regimen. 9. Diabetes. Continue Accu-Cheks and insulin sliding scale. 10. Hypertensive. Continue Synthroid. 11. Bipolar disorder. Continue medical management. 12. Cardiomyopathy. Continue current treatment plan. Subjective 24 Hr Interval Summary Free Text/Dictation -pt was transferred to icu after being altered yesterday. -pt now stable, but confused Exam/Review of Systems Vital Signs Vitals Vital Signs Date Time Temp Pulse Resp B/P Pulse Ox O2 Delivery O2 Flow Rate FiO2 01/29/17 06:00 70 12 139/88 97 Room Air 01/29/17 04:00 98.7 01/28/17 16:00 2.0 Intake and Output 01/28/17 01/28/17 01/29/17 15:00 23:00 07:00 Intake Total 120 ml 20 ml 250 ml Output Total 0 ml 0 ml 0 ml Balance 120 ml 20 ml 250 ml Exam HEENT: Head is normocephalic. NECK: Supple. HEART: Regular rate. LUNGS: Show diminished breath sounds at the base. ABDOMEN: Soft, nontender to palpation. No rebound or guarding. EXTREMITIES: Negative for clubbing, cyanosis, no edema. DERMATOLOGIC: No rashes. MUSCULOSKELETAL: No joint effusions. NEUROLOGIC: No change in exam. Results Result Diagram: 01/29/17 0735 01/28/17 0530 Results 24 hrs Laboratory Tests Test 01/28/17 11:05 01/28/17 12:44 01/28/17 12:51 01/28/17 13:00 Bedside Glucose 101 109 Blood Gas Specimen Source Blood arterial Arterial Blood Date Drawn 01/28/2017 12:52:20 PM Arterial Blood pH (Temp corrected) 7.221 *L Arterial Blood pCO2 (Temp correct) 50.5 H Arterial Blood pO2 (Temp corrected) 381.0 H Arterial Blood HCO3 20.3 L Arterial Blood Base Excess -7.6 L Arterial Blood Oxygen Saturation 99.6 H Roe Test ACCEPTAB Arterial Blood Gas Puncture Site Left Radial Arterial Blood Carboxyhemoglobin 0.7 Arterial Blood Methemoglobin 0.3 Blood Gas A-a O2 Differential 281.5 H Oxyhemoglobin Percent 98.6 Total Hemoglobin 13.4 Blood Gas Temperature 37.0 Blood Gas Modality MASK - NRB FiO2 100.0 Blood Gas Critical Value Read Back TERRA MOREAU Blood Gas Notified Whom [place] Blood Gas Notified Time 01/28/2017 1:00:15 PM Ammonia 45 H Test 01/28/17 17:18 01/28/17 20:32 01/29/17 00:17 01/29/17 07:35 Bedside Glucose 95 76 77 White Blood Count 7.4 Red Blood Count 4.31 L Hemoglobin 12.5 L Hematocrit 39.7 L Mean Corpuscular Volume 92.1 Mean Corpuscular Hemoglobin 29.0 Mean Corpuscular Hemoglobin Concent 31.5 L Red Cell Distribution Width 17.3 H Platelet Count 102 L Mean Platelet Volume Neutrophils % 72.4 Lymphocytes % 13.3 L Monocytes % 9.2 Eosinophils % 4.1 Basophils % 0.7 Nucleated Red Blood Cells % 0.0 Neutrophils # 5.4 Lymphocytes # 1.0 Monocytes # 0.7 Eosinophils # 0.3 Basophils # 0.1 Nucleated Red Blood Cells # 0.0 Test 01/29/17 08:24 Bedside Glucose 79 Medications Medications Current Medications Aspirin (Halfprin) 81 mg DAILY PO Last administered on 01/29/17 08:30; Admin Dose 81 MG; Start 01/21/17 at 09:00 Atorvastatin Calcium (Lipitor) 20 mg HS PO Last administered on 01/28/17 22:46 ; Admin Dose 20 MG; Start 01/20/17 at 21:00 Gabapentin (Neurontin) 100 mg BID PO Last administered on 01/29/17 08:30; Admin Dose 100 MG; Start 01/20/17 at 21:00 Lisinopril (Zestril) 2.5 mg DAILY PO Last administered on 01/29/17 08:30; Admin Dose 2.5 MG; Start 01/21/17 at 09:00 Insulin Glargine (Lantus) 17 unit DAILY@20 SC Last administered on 01/27/17 20 :53; Admin Dose 17 UNIT; Start 01/20/17 at 20:00 Miscellaneous Information 1 ea NOTE XX ; Start 01/20/17 at 17:30 Glucose (Glutose) 15 gm Q15M PRN PO DECREASED GLUCOSE; Start 01/20/17 at 17:30 Glucose (Glutose) 22.5 gm Q15M PRN PO DECREASED GLUCOSE; Start 01/20/17 at 17:30 Dextrose (D50w Syringe) 25 ml Q15M PRN IV DECREASED GLUCOSE; Start 01/20/17 at 17:30 Dextrose (D50w Syringe) 50 ml Q15M PRN IV DECREASED GLUCOSE; Start 01/20/17 at 17:30 Glucagon (Glucagen) 1 mg Q15M PRN IM DECREASED GLUCOSE; Start 01/20/17 at 17:30 Glucose (Glutose) 15 gm Q15M PRN BUCCAL DECREASED GLUCOSE; Start 01/20/17 at 17: 30 Diagnostic Test (Pha) (Accu-Chek) 1 ea 02 XX Last administered on 01/26/17 02: 00; Admin Dose 1 EA; Start 01/21/17 at 02:00 Zolpidem Tartrate 5 mg 5 mg HS PRN PO INSOMNIA Last administered on 01/26/17 22 :14; Admin Dose 5 MG; Start 01/20/17 at 23:30 Cefepime HCl (Maxipime 1gm/50 ml (Pmx)) 50 ml @ 100 mls/hr Q24H IVPB Last administered on 01/28/17 15:01; Admin Dose 100 MLS/HR; Start 01/21/17 at 14:00 Polyethylene Glycol (Miralax) 17 gm DAILY PO Last administered on 01/26/17 08: 50; Admin Dose 17 GM; Start 01/21/17 at 15:00 Docusate Sodium (Colace) 100 mg BID PO Last administered on 01/29/17 08:31; Admin Dose 100 MG; Start 01/21/17 at 15:00 Quetiapine Fumarate (Seroquel) 200 mg QHS PO Last administered on 01/28/17 22: 47; Admin Dose 200 MG; Start 01/21/17 at 21:00 Ondansetron HCl 4 mg 4 mg Q6H PRN IV NAUSEA AND/OR VOMITING Last administered on 01/26/17 20:52; Admin Dose 4 MG; Start 01/24/17 at 23:45 Vancomycin HCl (Vancocin) 250 ml @ 125 mls/hr Q5D IVPB Last administered on 22:46; Admin Dose 125 MLS/HR; Start 01/28/17 at 22:00 Hydralazine HCl (Apresoline) 10 mg Q6H PRN IV For SBP > 160; Start 01/28/17 at 21:30 KERI DE SOUZA DO Jan 29, 2017 08:43
--- NOTE | 2017-01-29 12:16 | CONS ---
Date/Time of Note Date/Time of Note DATE: 01/29/17 TIME: 12:15 Consult Date/Type/Reason Admit Date/Time Jan 20, 2017 at 15:31 Initial Consult Date 01/26/17 Type of Consultation: Neurology Reason for Consultation encephalopathy Ordering Provider: SCOT DÍAZ Subjective receiving dialysis continues to be encephalopathic slow to respond slurred speech no seizures EEG pending Objective Vital Signs Date Time Temp Pulse Resp B/P Pulse Ox O2 Delivery O2 Flow Rate FiO2 01/29/17 11:35 91 01/29/17 09:05 19 01/29/17 06:00 139/88 97 Room Air 01/29/17 04:00 98.7 01/28/17 16:00 2.0 Intake and Output 01/28/17 01/28/17 01/29/17 15:00 23:00 07:00 Intake Total 120 ml 20 ml 250 ml Output Total 0 ml 0 ml 0 ml Balance 120 ml 20 ml 250 ml Exam awake and alert not oriented to hospital or date says he has a cat and can tell me his name very encephalopathic not answering all questions appropriately can name only 1 object CN: MARIA DEL ROSARIO, blinks to threat, no sig. facial, dysarthria is present tongue is red and bloody Motor: withdraws briefly anti-gravity in all extremities Coordination: uncooperative with testing Results/Medications Result Diagram: 01/29/17 0735 01/29/17 0735 Results 24 hrs Laboratory Tests Test 01/28/17 12:44 01/28/17 12:51 01/28/17 13:00 01/28/17 17:18 Bedside Glucose 109 95 Blood Gas Specimen Source Blood arterial Arterial Blood Date Drawn 01/28/2017 12:52:20 PM Arterial Blood pH (Temp corrected) 7.221 *L Arterial Blood pCO2 (Temp correct) 50.5 H Arterial Blood pO2 (Temp corrected) 381.0 H Arterial Blood HCO3 20.3 L Arterial Blood Base Excess -7.6 L Arterial Blood Oxygen Saturation 99.6 H Roe Test ACCEPTAB Arterial Blood Gas Puncture Site Left Radial Arterial Blood Carboxyhemoglobin 0.7 Arterial Blood Methemoglobin 0.3 Blood Gas A-a O2 Differential 281.5 H Oxyhemoglobin Percent 98.6 Total Hemoglobin 13.4 Blood Gas Temperature 37.0 Blood Gas Modality MASK - NRB FiO2 100.0 Blood Gas Critical Value Read Back TERRA MOREAU Blood Gas Notified Whom [place] Blood Gas Notified Time 01/28/2017 1:00:15 PM Ammonia 45 H Test 01/28/17 20:32 01/29/17 00:17 01/29/17 07:35 01/29/17 08:24 Bedside Glucose 76 77 79 White Blood Count 7.4 Red Blood Count 4.31 L Hemoglobin 12.5 L Hematocrit 39.7 L Mean Corpuscular Volume 92.1 Mean Corpuscular Hemoglobin 29.0 Mean Corpuscular Hemoglobin Concent 31.5 L Red Cell Distribution Width 17.3 H Platelet Count 102 L Mean Platelet Volume Neutrophils % 72.4 Lymphocytes % 13.3 L Monocytes % 9.2 Eosinophils % 4.1 Basophils % 0.7 Nucleated Red Blood Cells % 0.0 Neutrophils # 5.4 Lymphocytes # 1.0 Monocytes # 0.7 Eosinophils # 0.3 Basophils # 0.1 Nucleated Red Blood Cells # 0.0 Sodium Level 139 Potassium Level 5.4 H Chloride Level 99 Carbon Dioxide Level 24 Anion Gap 21 H Blood Urea Nitrogen 57 H Creatinine 11.83 H Glucose Level 63 #L Calcium Level 9.4 Test 01/29/17 12:11 Bedside Glucose 115 Medications Current Medications Aspirin (Halfprin) 81 mg DAILY PO Last administered on 01/29/17 08:30; Admin Dose 81 MG; Start 01/21/17 at 09:00 Atorvastatin Calcium (Lipitor) 20 mg HS PO Last administered on 01/28/17 22:46 ; Admin Dose 20 MG; Start 01/20/17 at 21:00 Gabapentin (Neurontin) 100 mg BID PO Last administered on 01/29/17 08:30; Admin Dose 100 MG; Start 01/20/17 at 21:00 Lisinopril (Zestril) 2.5 mg DAILY PO Last administered on 01/29/17 08:30; Admin Dose 2.5 MG; Start 01/21/17 at 09:00 Insulin Glargine (Lantus) 17 unit DAILY@20 SC Last administered on 01/27/17 20 :53; Admin Dose 17 UNIT; Start 01/20/17 at 20:00 Miscellaneous Information 1 ea NOTE XX ; Start 01/20/17 at 17:30 Glucose (Glutose) 15 gm Q15M PRN PO DECREASED GLUCOSE; Start 01/20/17 at 17:30 Glucose (Glutose) 22.5 gm Q15M PRN PO DECREASED GLUCOSE; Start 01/20/17 at 17:30 Dextrose (D50w Syringe) 25 ml Q15M PRN IV DECREASED GLUCOSE; Start 01/20/17 at 17:30 Dextrose (D50w Syringe) 50 ml Q15M PRN IV DECREASED GLUCOSE; Start 01/20/17 at 17:30 Glucagon (Glucagen) 1 mg Q15M PRN IM DECREASED GLUCOSE; Start 01/20/17 at 17:30 Glucose (Glutose) 15 gm Q15M PRN BUCCAL DECREASED GLUCOSE; Start 01/20/17 at 17: 30 Diagnostic Test (Pha) (Accu-Chek) 1 ea 02 XX Last administered on 01/26/17 02: 00; Admin Dose 1 EA; Start 01/21/17 at 02:00 Zolpidem Tartrate 5 mg 5 mg HS PRN PO INSOMNIA Last administered on 01/26/17 22 :14; Admin Dose 5 MG; Start 01/20/17 at 23:30 Cefepime HCl (Maxipime 1gm/50 ml (Pmx)) 50 ml @ 100 mls/hr Q24H IVPB Last administered on 01/28/17 15:01; Admin Dose 100 MLS/HR; Start 01/21/17 at 14:00 Polyethylene Glycol (Miralax) 17 gm DAILY PO Last administered on 01/26/17 08: 50; Admin Dose 17 GM; Start 01/21/17 at 15:00 Docusate Sodium (Colace) 100 mg BID PO Last administered on 01/29/17 08:31; Admin Dose 100 MG; Start 01/21/17 at 15:00 Quetiapine Fumarate (Seroquel) 200 mg QHS PO Last administered on 01/28/17 22: 47; Admin Dose 200 MG; Start 01/21/17 at 21:00 Ondansetron HCl 4 mg 4 mg Q6H PRN IV NAUSEA AND/OR VOMITING Last administered on 01/26/17 20:52; Admin Dose 4 MG; Start 01/24/17 at 23:45 Vancomycin HCl (Vancocin) 250 ml @ 125 mls/hr Q5D IVPB Last administered on 22:46; Admin Dose 125 MLS/HR; Start 01/28/17 at 22:00 Hydralazine HCl (Apresoline) 10 mg Q6H PRN IV For SBP > 160; Start 01/28/17 at 21:30 Assessment/Plan Chief Complaint/Hosp Course 56 yo male ESRD, DM, hypothyroidism, ischemic CM admitted with pneumonia and encephalopathy with active metabolic issues. Episode of unresponsiveness this am, possible seizure? remains encephalopathic. Recommend: MRI Brain reordered EEG pending discontinue narcotics continue frequent neuro checks possible toxic metabolic encephalopathy due to uremia, will rule out seizure potential Problems: MONY GRIFFIN MD Jan 29, 2017 12:16
--- NOTE | 2017-01-29 12:49 | PN ---
Date/Time of Note Date/Time of Note DATE: 01/29/17 TIME: 12:44 Assessment/Plan VTE Prophylaxis VTE Prophylaxis Intervention: heparin Lines/Catheters IV Catheter Type (from Nrs): Saline Lock Assessment/Plan Chief Complaint/Hosp Course Assessment/Plan 1. Acute metabolic encephalopathy likely secondary to BENZENE WASHER disorder/ psychiatric disorder, Less likely secondary to infection, patient mentation has been improving Neurology consultation appreciated, MRI brain shows no acute findings Patient reports persistent stuttering and difficulty with speech as well as spastic movements, patient's home psych meds have been restarted Patient will need rehab placement for improvement of his speech as well as physical therapy, patient is unable to care for himself at home at this time and hence case management consult will be placed to assist with rehab placement 2. Right-sided pneumonia with right-sided pleural effusion Continue antibiotics 3. Sepsis with bacteremia likely secondary to right-sided pneumonia versus line sepsis Patient has had 2 prior episodes of line sepsis Repeat blood cultures are negative at 2 days, patient may still need vancomycin IV for 2 weeks plus Levaquin p.o. 2 weeks, will discuss with ID 4. End-stage renal disease on hemodialysis Continue HD per renal 5. Chronic back and LE pain 6. Hyperkalemia secondary to renal disease 7. Chronic normocytic normochromic anemia of renal disease 8. Cardiomyopathy with last known EF of 24% for which patient refused AICD 9. Hypothyroidism 10. Diabetes mellitus type 2 Discontinued metformin in this patient with end-stage renal disease 11. Chronic depression Continue home meds 12. Thrombocytopenia-mild 13. Anemia of chronic disease and end-stage renal disease 14. History of Non compliance Prophylaxis with heparin and PPI Discharge planning: Transfer to telemetry floor patient will need rehab placement is unable to care for himself at this time , patient would benefit from speech therapy and PT Problems: Subjective 24 Hr Interval Summary Free Text/Dictation Patient is awake and alert Following commands Denies of any chest pain or shortness of breath Tolerating hemodialysis Exam/Review of Systems Vital Signs Vitals Vital Signs Date Time Temp Pulse Resp B/P Pulse Ox O2 Delivery O2 Flow Rate FiO2 01/29/17 11:35 91 01/29/17 09:05 19 01/29/17 06:00 139/88 97 Room Air 01/29/17 04:00 98.7 01/28/17 16:00 2.0 Intake and Output 01/28/17 01/28/17 01/29/17 15:00 23:00 07:00 Intake Total 120 ml 20 ml 250 ml Output Total 0 ml 0 ml 0 ml Balance 120 ml 20 ml 250 ml Exam General: The patient is well-developed, Not in acute distress. HEENT: Atraumatic, normocephalic. The pupils are equal and round . Neck: Supple Chest: Normal , dialysis cath and left upper anterior chest Lungs: Clear to auscultation bilaterally Heart: Normal S1-S2, Regular rhythm and rate. Abdomen: Soft , nontender, nondistended , bowel sounds are present. Extremities: Normal to inspection, no edema no cyanosis Neurologic: Normal mental status,The patient is awake and alert Results Result Diagram: 01/29/17 0735 01/29/17 0735 Results 24 hrs Laboratory Tests Test 01/28/17 12:51 01/28/17 13:00 01/28/17 17:18 01/28/17 20:32 Blood Gas Specimen Source Blood arterial Arterial Blood Date Drawn 01/28/2017 12:52:20 PM Arterial Blood pH (Temp corrected) 7.221 *L Arterial Blood pCO2 (Temp correct) 50.5 H Arterial Blood pO2 (Temp corrected) 381.0 H Arterial Blood HCO3 20.3 L Arterial Blood Base Excess -7.6 L Arterial Blood Oxygen Saturation 99.6 H Roe Test ACCEPTAB Arterial Blood Gas Puncture Site Left Radial Arterial Blood Carboxyhemoglobin 0.7 Arterial Blood Methemoglobin 0.3 Blood Gas A-a O2 Differential 281.5 H Oxyhemoglobin Percent 98.6 Total Hemoglobin 13.4 Blood Gas Temperature 37.0 Blood Gas Modality MASK - NRB FiO2 100.0 Blood Gas Critical Value Read Back TERRA MOREAU Blood Gas Notified Whom PRISCILLA Blood Gas Notified Time 01/28/2017 1:00:15 PM Ammonia 45 H Bedside Glucose 95 76 Test 01/29/17 00:17 01/29/17 07:35 01/29/17 08:24 01/29/17 12:11 Bedside Glucose 77 79 115 White Blood Count 7.4 Red Blood Count 4.31 L Hemoglobin 12.5 L Hematocrit 39.7 L Mean Corpuscular Volume 92.1 Mean Corpuscular Hemoglobin 29.0 Mean Corpuscular Hemoglobin Concent 31.5 L Red Cell Distribution Width 17.3 H Platelet Count 102 L Mean Platelet Volume Neutrophils % 72.4 Lymphocytes % 13.3 L Monocytes % 9.2 Eosinophils % 4.1 Basophils % 0.7 Nucleated Red Blood Cells % 0.0 Neutrophils # 5.4 Lymphocytes # 1.0 Monocytes # 0.7 Eosinophils # 0.3 Basophils # 0.1 Nucleated Red Blood Cells # 0.0 Sodium Level 139 Potassium Level 5.4 H Chloride Level 99 Carbon Dioxide Level 24 Anion Gap 21 H Blood Urea Nitrogen 57 H Creatinine 11.83 H Glucose Level 63 #L Calcium Level 9.4 Medications Medications Current Medications Aspirin (Halfprin) 81 mg DAILY PO Last administered on 01/29/17 08:30; Admin Dose 81 MG; Start 01/21/17 at 09:00 Atorvastatin Calcium (Lipitor) 20 mg HS PO Last administered on 01/28/17 22:46 ; Admin Dose 20 MG; Start 01/20/17 at 21:00 Gabapentin (Neurontin) 100 mg BID PO Last administered on 01/29/17 08:30; Admin Dose 100 MG; Start 01/20/17 at 21:00 Lisinopril (Zestril) 2.5 mg DAILY PO Last administered on 01/29/17 08:30; Admin Dose 2.5 MG; Start 01/21/17 at 09:00 Insulin Glargine (Lantus) 17 unit DAILY@20 SC Last administered on 01/27/17 20 :53; Admin Dose 17 UNIT; Start 01/20/17 at 20:00 Miscellaneous Information 1 ea NOTE XX ; Start 01/20/17 at 17:30 Glucose (Glutose) 15 gm Q15M PRN PO DECREASED GLUCOSE; Start 01/20/17 at 17:30 Glucose (Glutose) 22.5 gm Q15M PRN PO DECREASED GLUCOSE; Start 01/20/17 at 17:30 Dextrose (D50w Syringe) 25 ml Q15M PRN IV DECREASED GLUCOSE; Start 01/20/17 at 17:30 Dextrose (D50w Syringe) 50 ml Q15M PRN IV DECREASED GLUCOSE; Start 01/20/17 at 17:30 Glucagon (Glucagen) 1 mg Q15M PRN IM DECREASED GLUCOSE; Start 01/20/17 at 17:30 Glucose (Glutose) 15 gm Q15M PRN BUCCAL DECREASED GLUCOSE; Start 01/20/17 at 17: 30 Diagnostic Test (Pha) (Accu-Chek) 1 ea 02 XX Last administered on 01/26/17 02: 00; Admin Dose 1 EA; Start 01/21/17 at 02:00 Zolpidem Tartrate 5 mg 5 mg HS PRN PO INSOMNIA Last administered on 01/26/17 22 :14; Admin Dose 5 MG; Start 01/20/17 at 23:30 Cefepime HCl (Maxipime 1gm/50 ml (Pmx)) 50 ml @ 100 mls/hr Q24H IVPB Last administered on 01/28/17 15:01; Admin Dose 100 MLS/HR; Start 01/21/17 at 14:00 Polyethylene Glycol (Miralax) 17 gm DAILY PO Last administered on 01/26/17 08: 50; Admin Dose 17 GM; Start 01/21/17 at 15:00 Docusate Sodium (Colace) 100 mg BID PO Last administered on 01/29/17 08:31; Admin Dose 100 MG; Start 01/21/17 at 15:00 Quetiapine Fumarate (Seroquel) 200 mg QHS PO Last administered on 01/28/17 22: 47; Admin Dose 200 MG; Start 01/21/17 at 21:00 Ondansetron HCl 4 mg 4 mg Q6H PRN IV NAUSEA AND/OR VOMITING Last administered on 01/26/17 20:52; Admin Dose 4 MG; Start 01/24/17 at 23:45 Vancomycin HCl (Vancocin) 250 ml @ 125 mls/hr Q5D IVPB Last administered on 22:46; Admin Dose 125 MLS/HR; Start 01/28/17 at 22:00 Hydralazine HCl (Apresoline) 10 mg Q6H PRN IV For SBP > 160; Start 01/28/17 at 21:30 WILIAM PHIPPS MD Jan 29, 2017 12:49
--- NOTE | 2017-01-29 14:36 | PN ---
DATE: 01/29/2017 INFECTIOUS DISEASE PROGRESS NOTE SUBJECTIVE: The patient is seen in hemodialysis, looks comfortable, no fevers, still confused and o n and off lethargic. LABORATORY DATA: WBC today 7.4, H and H 12.5 and 29.7, platelets 102. INDWELLINGS: The patient has a left IJ PermCath. ANTIMICROBIALS: 1. Vancomycin. 2. Cefepime. PHYSICAL EXAMINATION: GENERAL: Chronically ill-appearing, middle-aged man who is in no distress. HEENT: Head atraumatic, normocephalic. Sclerae anicteric. Buccal mucosa dry. NECK: Supple. CHEST: Rise symmetrical. Breath sounds diminished to bases. HEART: S1, S2. ABDOMEN: Soft, bowel sounds present. EXTREMITIES: With trace edema. ASSESSMENT: 1. Acute encephalopathy, no radiographic evidence of acute CVA, no seizures. Pending EEG, neurolog y on case. 2. Healthcare-associated pneumonia, possibly aspiration event. 3. Status post guaiac-negative staph bacteremia with repeat blood cultures negative. 4. End-stage renal disease, hemodialysis dependent. 5. Diabetes. PLAN: The patient remains unchanged, hemodynamically stable. Continue present care, antibiotics, p ending EEG. Dictated By: AUBRIE MORGAN [employer] SALES COUNTERPERSON for GISELLE CHRISTENSEN/LEAH Conf#: [id number] DID#: [id number]
[2017-01-29] MEDS: CEFEPIME 1GM/50 ML (PMX) 50 ML IVPB SCH (15:06)
--- NOTE | 2017-01-29 20:05 | SP ---
DATE OF PROCEDURE: 01/29/2017 ELECTROENCEPHALOGRAM INDICATIONS: This is a 56-year-old male with end-stage renal disease, was admitted with pneumonia, and was found to be confused. He apparently had an episode of unresponsiveness today. EEG is to ru le out seizure activity. CURRENT MEDICATIONS: 1. Vancomycin. 2. Apresoline. 3. Zofran. 4. Seroquel. 5. Ambien. 6. Synthroid. PROCEDURE: Utilizing a 16-channel EEG machine, cap-scalp electrodes were applied in accordance with International 10-20 system. [id number] and [id number]-rw-[id number] montages were displayed. Electrical i mpedances were measured and reported. DESCRIPTION: During the resting state, posterior dominant rhythm of about 4 to 5 Hz were seen bihem ispherically. Left central parietal sharps were noted at times during the tracing. Photic stimulat ion had no response. Hyperventilation was not performed. INTERPRETATION: This is an abnormal EEG due to the presence of generalized bihemispheric background slowing with left central parietal epileptiform activity, which is consistent with encephalopathy w ith epileptiform activity. Please correlate these findings with the patient's clinical picture. Dictated By: NASRIN CHEN/LEAH Conf#: [id number] DID#: [id number] CC: ELIZABETH TODD MD;*EndCC*
[2017-01-29] MEDS: QUETIAPINE 100 MG TAB PO SCH (20:55)
[2017-01-29] MEDS: ATORVASTATIN 20 MG TAB PO SCH (20:55)
[2017-01-29] MEDS: INSULIN GLARGINE [LANtus] 3 ML PEN SC SCH (21:02)
[2017-01-30] VITALS (11 sets, daily range): BP systolic 123–173; BP diastolic 70–97; PULSE 80–103; RESP 16–20
--- NOTE | 2017-01-30 00:27 | RADRPT ---
PROCEDURE: MR Brain without contrast. CLINICAL INDICATION: CVA TECHNIQUE: An MRI of the brain was performed on a 1.5 filiberto scanner utilizing the following sequen ishmael: Sagittal T1 weighted, axial T2 weighted, axial FLAIR, coronal GRE, and axial diffusion weighted with ADC mapping. COMPARISON: None FINDINGS: No evidence of restricted diffusion to suggest acute or early subacute ischemic infarction. There i s no evidence of intracranial hemorrhage, mass effect, or midline shift. No extra-axial fluid collec tions are seen. No hypointense signal abnormalities are seen on the GRE images to suggest the presence of blood degr adation products. Scattered nonspecific T2 signal hyperintensity foci in the subcortical and periven tricular white matter compatible with sequelae of mild chronic microvascular ischemic injury. The brain parenchyma is otherwise normal in morphology with preservation of bray white differentiati on and mild central cerebral volume loss. Age appropriate size of the ventricles and subarachnoid s paces. Minimal mucosal thickening in the frontal sinuses and ethmoid air cells. Bilateral lens surge ry. The posterior fossa contents, brainstem, seventh - eighth cranial nerve complexes, pituitary axis, o rbits, paranasal sinuses, and mastoid air cells are unremarkable. Normal flow voids are visible in the proximal intracranial arteries and dural sinuses, indicating pa tency. IMPRESSION: 1. No acute or early subacute ischemic infarction or intracranial hemorrhage. 2. Stable mild chronic microvascular ischemic disease and cerebral volume loss. 3. Stable mild paranasal sinuses disease. RPTAT:AAJJ Physician Marsha Date Time Electronically viewed and signed by Physician Marsha on 01/30/2017 00:27 KAYE/
[2017-01-30] MEDS: ACCUCHECK AT 2AM (Patients on SS coverage) XX SCH (02:00)
[2017-01-30] MEDS: LEVOTHYROXINE 150 MCG TAB PO SCH (06:27)
[2017-01-30 07:04] LABS: ADD SCAN DIFF NO
[2017-01-30 07:12] LABS: BASOPHIL # 0.1 10^3/ul (0.0-0.1); BASOPHILS % 0.9 % (0.0-2.0); EOSINOPHILS # 0.2 10^3/ul (0.0-0.5); EOSINOPHILS % 3.6 % (0.0-7.0); HEMATOCRIT 38.2 % (42.0-52.0); HEMOGLOBIN 11.6 g/dl (14.0-18.0); LYMPHOCYTES # 0.8 10^3/ul (0.8-2.9); LYMPHOCYTES % 11.8 % (15.0-51.0); MEAN CORPUSCULAR HEMOGLOBIN 28.6 pg (29.0-33.0); MEAN CORPUSCULAR HGB CONC 30.4 g/dl (32.0-37.0); MEAN CORPUSCULAR VOLUME 94.1 fl (82.0-101.0); MEAN PLATELET VOLUME 11.3 fl (7.4-10.4); MONOCYTE # 0.6 10^3/ul (0.3-0.9); MONOCYTES % 8.7 % (0.0-11.0); NEUTROPHILS % 74.6 % (39.0-77.0); PLATELET COUNT 105 10^3/UL (140-415); RED BLOOD COUNT 4.06 10^6/ul (4.70-6.10); RED CELL DISTRIBUTION WIDTH 17.2 % (11.5-14.5); WHITE BLOOD COUNT 6.7 10^3/ul (4.8-10.8)
[2017-01-30 07:50] LABS: CALCIUM 9.2 mg/dl (8.4-10.2); CREATININE 10.4 mg/dl (0.61-1.24); MAGNESIUM 2.5 mg/dl (1.7-2.5); PHOSPHORUS 7.5 mg/dl (2.5-4.9); POTASSIUM 4.7 mmol/L (3.5-5.1)
[2017-01-30] MEDS: INSULIN ASPART [NOVOLOG] 3 ML PEN SC SCH ×4 (07:55→21:00)
[2017-01-30] MEDS: SEVELAMER 800 MG TAB PO SCH ×3 (08:47→17:55)
[2017-01-30] MEDS: ASPIRIN (EC) 81 MG TAB PO SCH (08:48)
[2017-01-30] MEDS: LISINOPRIL 5 MG TAB PO SCH (08:48)
[2017-01-30] MEDS: GABAPENTIN 100 MG CAP PO SCH ×2 (08:48→21:26)
[2017-01-30] MEDS: POLYETHYLENE GLYCOL 17 GM PACKET PO SCH (08:48)
[2017-01-30] MEDS: DOCUSATE SODIUM 100 MG CAP PO SCH ×2 (08:48→21:26)
--- NOTE | 2017-01-30 10:37 | PN ---
DATE: 01/30/2017 SUBJECTIVE: The patient was transferred from intensive care unit to telemetry. The patient is curr ently stable, no acute events overnight. OBJECTIVE: VITAL SIGNS: Blood pressure is 137/86, respirations 19, pulse 99, temperature 98.0. HEENT: Head is normocephalic. NECK: Supple. HEART: Regular rate. LUNGS: Show diminished breath sounds at base. ABDOMEN: Soft, nontender to palpation without rebound or guarding. EXTREMITIES: Negative for clubbing, cyanosis, edema. DERMATOLOGIC: No rashes. MUSCULOSKELETAL: No joint effusions. NEUROLOGIC: No change in exam. MEDICATIONS: The patient's medications have been reviewed. LABORATORY DATA: Shows a sodium 140, potassium 4.7, chloride 99, BUN 41, creatinine 10.40. White c ount 6.7, hemoglobin 9.6, hematocrit 38.2, platelet count is 105. ASSESSMENT AND PLAN: 1. End-stage renal disease. The patient had hemodialysis yesterday, tolerated well. Plan for dial ysis tomorrow. 2. Hyperkalemia, resolved. Continue low-potassium diet. Continue dialysis on a 2 potassium bath. 3. Anemia. Continue to monitor hemoglobin and hematocrit levels. 4. Mineral bone disorder. Continue to monitor calcium and phosphorus levels. Continue phos binder s. 5. Volume overload, improving. Continue ultrafiltration with dialysis. 6. Acute encephalopathy, etiology toxic metabolic, possibly uremic. Continue hemodialysis. Follow up with neurology. 7. Sepsis, clinically improving. The patient has completed antibiotic course. 8. Diabetes. Continue Accu-Cheks, insulin sliding scale. 9. Hypothyroidism. Continue Synthroid. 10. Bipolar disorder. Continue medical management. 11. Cardiomyopathy. Continue current treatment plan. Dictated By: KERI MEADE/LEAH Conf#: [id number] DID#: [id number]
--- NOTE | 2017-01-30 11:54 | CONS ---
Date/Time of Note Date/Time of Note DATE: 01/30/17 TIME: 11:51 Consult Date/Type/Reason Admit Date/Time Jan 20, 2017 at 15:31 Initial Consult Date 01/26/17 Type of Consultation: Neurology Reason for Consultation encephalopathy, seizure Ordering Provider: SCOT DÍAZ transferred out of icu overnight encephalopathy improving repeat MRI Brain done yesterday shows no change EEG shows epileptiform discharges left parietal region Objective Vital Signs Date Time Temp Pulse Resp B/P Pulse Ox O2 Delivery O2 Flow Rate FiO2 01/30/17 11:17 97.6 95 18 155/90 95 01/29/17 13:53 2.0 01/29/17 12:00 Room Air Intake and Output 01/29/17 01/29/17 01/30/17 15:00 23:00 07:00 Intake Total 700 ml 200 ml 350 ml Output Total 2300 ml 0 ml Balance -1600 ml 200 ml 350 ml Exam awake and alert oriented to self hospital requesting to go home dysarthria improved CN: MARIA DEL ROSARIO, blinks to threat mild right NLF flattening Motor: lifts antigravity all extremities sensory intact Results/Medications Result Diagram: 01/30/17 0615 01/30/17 0615 Results 24 hrs Laboratory Tests Test 01/29/17 12:11 01/29/17 17:54 01/29/17 20:53 01/30/17 06:15 Bedside Glucose 115 105 88 White Blood Count 6.7 Red Blood Count 4.06 L Hemoglobin 11.6 L Hematocrit 38.2 L Mean Corpuscular Volume 94.1 Mean Corpuscular Hemoglobin 28.6 L Mean Corpuscular Hemoglobin Concent 30.4 L Red Cell Distribution Width 17.2 H Platelet Count 105 L Mean Platelet Volume 11.3 H Neutrophils % 74.6 Lymphocytes % 11.8 L Monocytes % 8.7 Eosinophils % 3.6 Basophils % 0.9 Nucleated Red Blood Cells % 0.0 Neutrophils # 5.0 Lymphocytes # 0.8 Monocytes # 0.6 Eosinophils # 0.2 Basophils # 0.1 Nucleated Red Blood Cells # 0.0 Sodium Level 140 Potassium Level 4.7 Chloride Level 99 Carbon Dioxide Level 26 Anion Gap 20 H Blood Urea Nitrogen 41 #H Creatinine 10.40 H Glucose Level 71 Calcium Level 9.2 Phosphorus Level 7.5 H Magnesium Level 2.5 Test 01/30/17 07:56 Bedside Glucose 75 Medications Current Medications Aspirin (Halfprin) 81 mg DAILY PO Last administered on 01/30/17 08:48; Admin Dose 81 MG; Start 01/21/17 at 09:00 Atorvastatin Calcium (Lipitor) 20 mg HS PO Last administered on 01/29/17 20:55 ; Admin Dose 20 MG; Start 01/20/17 at 21:00 Gabapentin (Neurontin) 100 mg BID PO Last administered on 01/30/17 08:48; Admin Dose 100 MG; Start 01/20/17 at 21:00 Lisinopril (Zestril) 2.5 mg DAILY PO Last administered on 01/30/17 08:48; Admin Dose 2.5 MG; Start 01/21/17 at 09:00 Insulin Glargine (Lantus) 17 unit DAILY@20 SC Last administered on 01/29/17 21 :02; Admin Dose 17 UNIT; Start 01/20/17 at 20:00 Miscellaneous Information 1 ea NOTE XX ; Start 01/20/17 at 17:30 Glucose (Glutose) 15 gm Q15M PRN PO DECREASED GLUCOSE; Start 01/20/17 at 17:30 Glucose (Glutose) 22.5 gm Q15M PRN PO DECREASED GLUCOSE; Start 01/20/17 at 17:30 Dextrose (D50w Syringe) 25 ml Q15M PRN IV DECREASED GLUCOSE; Start 01/20/17 at 17:30 Dextrose (D50w Syringe) 50 ml Q15M PRN IV DECREASED GLUCOSE; Start 01/20/17 at 17:30 Glucagon (Glucagen) 1 mg Q15M PRN IM DECREASED GLUCOSE; Start 01/20/17 at 17:30 Glucose (Glutose) 15 gm Q15M PRN BUCCAL DECREASED GLUCOSE; Start 01/20/17 at 17: 30 Diagnostic Test (Pha) (Accu-Chek) 1 ea 02 XX Last administered on 01/26/17 02: 00; Admin Dose 1 EA; Start 01/21/17 at 02:00 Zolpidem Tartrate 5 mg 5 mg HS PRN PO INSOMNIA Last administered on 01/26/17 22 :14; Admin Dose 5 MG; Start 01/20/17 at 23:30 Cefepime HCl (Maxipime 1gm/50 ml (Pmx)) 50 ml @ 100 mls/hr Q24H IVPB Last administered on 01/29/17 15:06; Admin Dose 100 MLS/HR; Start 01/21/17 at 14:00 Polyethylene Glycol (Miralax) 17 gm DAILY PO Last administered on 01/30/17 08: 48; Admin Dose 17 GM; Start 01/21/17 at 15:00 Docusate Sodium (Colace) 100 mg BID PO Last administered on 01/30/17 08:48; Admin Dose 100 MG; Start 01/21/17 at 15:00 Quetiapine Fumarate (Seroquel) 200 mg QHS PO Last administered on 01/29/17 20: 55; Admin Dose 200 MG; Start 01/21/17 at 21:00 Ondansetron HCl 4 mg 4 mg Q6H PRN IV NAUSEA AND/OR VOMITING Last administered on 01/26/17 20:52; Admin Dose 4 MG; Start 01/24/17 at 23:45 Vancomycin HCl (Vancocin) 250 ml @ 125 mls/hr Q5D IVPB Last administered on 22:46; Admin Dose 125 MLS/HR; Start 01/28/17 at 22:00 Hydralazine HCl (Apresoline) 10 mg Q6H PRN IV For SBP > 160; Start 01/28/17 at 21:30 Divalproex Sodium (Depakote Er) 750 mg BID PO ; Start 01/30/17 at 12:30 Divalproex Sodium (Depakote Er) 750 mg BID PO ; Start 01/30/17 at 12:00 Assessment/Plan Chief Complaint/Hosp Course 56 yo male ESRD, DM, hypothyroidism, ischemic CM admitted with pneumonia and encephalopathy with active metabolic issues. EEG: generalized bihemispheric background slowing with left central parietal epileptiform activity, which is consistent with encephalopathy with epileptiform activity. Recommend: Recommendations: discontinue any medications that may lower seizures threshold ativan low dose prn for further seizures started Depakote 750 mg ER BID to treat both seizures and mood disorder continue frequent neuro checks encephalopathy improving will require outpatient neurology follow up, will sign off please reconsult as needed Problems: MONY GRIFFIN MD Jan 30, 2017 11:54
--- NOTE | 2017-01-30 12:01 | PN ---
Date/Time of Note Date/Time of Note DATE: 01/30/17 TIME: 11:59 Assessment/Plan VTE Prophylaxis VTE Prophylaxis Intervention: SCD's Lines/Catheters IV [facility]from [facility] Assessment/Plan Chief Complaint/Hosp Course Assessment/Plan 1. Acute metabolic encephalopathy likely secondary to [employer] disorder/ psychiatric disorder, Less likely secondary to infection, patient mentation has been improving Neurology consultation appreciated, MRI brain shows no acute findings Patient denies of having any slurred speech today patient's home psych meds have been restarted Patient will need rehab placement for improvement of his speech as well as physical therapy, patient is unable to care for himself at home at this time and hence case management consult will be placed to assist with rehab placement 2. Right-sided pneumonia with right-sided pleural effusion Continue antibiotics 3. Sepsis with bacteremia likely secondary to right-sided pneumonia versus line sepsis Patient has had 2 prior episodes of line sepsis Repeat blood cultures are negative at 2 days, patient may still need vancomycin IV for 2 weeks plus Levaquin p.o. 2 weeks, will discuss with ID 4. End-stage renal disease on hemodialysis Continue HD per renal 5. Chronic back and LE pain 6. Hyperkalemia secondary to renal disease 7. Chronic normocytic normochromic anemia of renal disease 8. Cardiomyopathy with last known EF of 24% for which patient refused AICD 9. Hypothyroidism 10. Diabetes mellitus type 2 Discontinued metformin in this patient with end-stage renal disease 11. Chronic depression Continue home meds 12. Thrombocytopenia-mild 13. Anemia of chronic disease and end-stage renal disease 14. History of Non compliance Prophylaxis with heparin and PPI Discharge planning: Transfer to telemetry floor patient will need rehab placement is unable to care for himself at this time , patient would benefit from speech therapy and PT Problems: Subjective 24 Hr Interval Summary Free Text/Dictation Patient denies of any chest pain or shortness of breath Tolerating oral intake Has not been evaluated by physical therapy as of yet Patient is requested to be discharged , but the risk of discharge at this time has been discussed with him Exam/Review of Systems Vital Signs Vitals Vital Signs Date Time Temp Pulse Resp B/P Pulse Ox O2 Delivery O2 Flow Rate FiO2 01/30/17 11:17 97.6 95 18 155/90 95 01/29/17 13:53 2.0 01/29/17 12:00 Room Air Intake and Output 01/29/17 01/29/17 01/30/17 15:00 23:00 07:00 Intake Total 700 ml 200 ml 350 ml Output Total 2300 ml 0 ml Balance -1600 ml 200 ml 350 ml Exam General: The patient is moderately overweight, Not in acute distress. HEENT: Atraumatic, normocephalic. The pupils are equal and round . Neck: Supple with full range of motion. Chest: Normal expansion of the thorax during inspiration Lungs: Clear to auscultation bilaterally Heart: Normal S1-S2, Regular rhythm and rate. Abdomen: Soft , nontender, nondistended , bowel sounds are present. Extremities: Normal to inspection, no edema no cyanosis Neurologic: Normal mental status,The patient is awake, alert and oriented . Results Result Diagram: 01/30/1761401/30/17614 Results 24 hrs Laboratory Tests Test 01/29/17 12:11 01/29/17 17:54 01/29/17 20:53 01/30/17 06:15 Bedside Glucose 115 105 88 White Blood Count 6.7 Red Blood Count 4.06 L Hemoglobin 11.6 L Hematocrit 38.2 L Mean Corpuscular Volume 94.1 Mean Corpuscular Hemoglobin 28.6 L Mean Corpuscular Hemoglobin Concent 30.4 L Red Cell Distribution Width 17.2 H Platelet Count 105 L Mean Platelet Volume 11.3 H Neutrophils % 74.6 Lymphocytes % 11.8 L Monocytes % 8.7 Eosinophils % 3.6 Basophils % 0.9 Nucleated Red Blood Cells % 0.0 Neutrophils # 5.0 Lymphocytes # 0.8 Monocytes # 0.6 Eosinophils # 0.2 Basophils # 0.1 Nucleated Red Blood Cells # 0.0 Sodium Level 140 Potassium Level 4.7 Chloride Level 99 Carbon Dioxide Level 26 Anion Gap 20 H Blood Urea Nitrogen 41 #H Creatinine 10.40 H Glucose Level 71 Calcium Level 9.2 Phosphorus Level 7.5 H Magnesium Level 2.5 Test 01/30/17 07:56 01/30/17 11:50 Bedside Glucose 75 77 Medications Medications Current Medications Aspirin (Halfprin) 81 mg DAILY PO Last administered on 01/30/17 08:48; Admin Dose 81 MG; Start 01/21/17 at 09:00 Atorvastatin Calcium (Lipitor) 20 mg HS PO Last administered on 01/29/17 20:55 ; Admin Dose 20 MG; Start 01/20/17 at 21:00 Gabapentin (Neurontin) 100 mg BID PO Last administered on 01/30/17 08:48; Admin Dose 100 MG; Start 01/20/17 at 21:00 Lisinopril (Zestril) 2.5 mg DAILY PO Last administered on 01/30/17 08:48; Admin Dose 2.5 MG; Start 01/21/17 at 09:00 Insulin Glargine (Lantus) 17 unit DAILY@20 SC Last administered on 01/29/17 21 :02; Admin Dose 17 UNIT; Start 01/20/17 at 20:00 Miscellaneous Information 1 ea NOTE XX ; Start 01/20/17 at 17:30 Glucose (Glutose) 15 gm Q15M PRN PO DECREASED GLUCOSE; Start 01/20/17 at 17:30 Glucose (Glutose) 22.5 gm Q15M PRN PO DECREASED GLUCOSE; Start 01/20/17 at 17:30 Dextrose (D50w Syringe) 25 ml Q15M PRN IV DECREASED GLUCOSE; Start 01/20/17 at 17:30 Dextrose (D50w Syringe) 50 ml Q15M PRN IV DECREASED GLUCOSE; Start 01/20/17 at 17:30 Glucagon (Glucagen) 1 mg Q15M PRN IM DECREASED GLUCOSE; Start 01/20/17 at 17:30 Glucose (Glutose) 15 gm Q15M PRN BUCCAL DECREASED GLUCOSE; Start 01/20/17 at 17: 30 Diagnostic Test (Pha) (Accu-Chek) 1 ea 02 XX Last administered on 01/26/17 02: 00; Admin Dose 1 EA; Start 01/21/17 at 02:00 Zolpidem Tartrate 5 mg 5 mg HS PRN PO INSOMNIA Last administered on 01/26/17 22 :14; Admin Dose 5 MG; Start 01/20/17 at 23:30 Cefepime HCl (Maxipime 1gm/50 ml (Pmx)) 50 ml @ 100 mls/hr Q24H IVPB Last administered on 01/29/17 15:06; Admin Dose 100 MLS/HR; Start 01/21/17 at 14:00 Polyethylene Glycol (Miralax) 17 gm DAILY PO Last administered on 01/30/17 08: 48; Admin Dose 17 GM; Start 01/21/17 at 15:00 Docusate Sodium (Colace) 100 mg BID PO Last administered on 01/30/17 08:48; Admin Dose 100 MG; Start 01/21/17 at 15:00 Quetiapine Fumarate (Seroquel) 200 mg QHS PO Last administered on 01/29/17 20: 55; Admin Dose 200 MG; Start 01/21/17 at 21:00 Ondansetron HCl 4 mg 4 mg Q6H PRN IV NAUSEA AND/OR VOMITING Last administered on 01/26/17 20:52; Admin Dose 4 MG; Start 01/24/17 at 23:45 Vancomycin HCl (Vancocin) 250 ml @ 125 mls/hr Q5D IVPB Last administered on 22:46; Admin Dose 125 MLS/HR; Start 01/28/17 at 22:00 Hydralazine HCl (Apresoline) 10 mg Q6H PRN IV For SBP > 160; Start 01/28/17 at 21:30 Divalproex Sodium (Depakote Er) 750 mg BID PO ; Start 01/30/17 at 12:00 WILIAM PHIPPS MD Jan 30, 2017 12:01
[2017-01-30] MEDS ORDERED: DIVALPROEX (ER) 500 MG TAB PO SCH (12:30)
[2017-01-30] MEDS: DIVALPROEX (ER) 250 MG TAB PO SCH ×2 (13:01→21:26)
--- NOTE | 2017-01-30 13:23 | CONS ---
Date/Time of Note Date/Time of Note DATE: 01/30/17 TIME: 13:21 Assessment/Plan Assessment/Plan Chief Complaint/Hosp Course SUBJECTIVE: No acute changes. Tx to tele. Awake, looks comfortable, no fevers. INDWELLINGS: Left chest PermCath. MICROBIOLOGY: Blood culture on admission grew Staph. Urine culture negative. DIAGNOSTICS: Chest x-ray revealed right lower lobe patchy consolidation and small to moderate right-sided pleural effusion. CT of the brain revealed no acute intracranial pathology. ANTIMICROBIALS: 1. IV cefepime. 2. Vancomycin. PHYSICAL EXAMINATION: GENERAL: This is an obese, well-developed, middle-aged man who is alert, in no distress. HEENT: Head atraumatic, normocephalic. Sclerae anicteric. Buccal mucosa pink. NECK: Supple. CHEST: Rise symmetrical. Breath sounds diminished to bases. HEART: S1, S2. ABDOMEN: Soft, bowel sounds present. EXTREMITIES: Without cyanosis. ASSESSMENT: 1. Sepsis with acute encephalopathy, tachycardia, and hypoxemia==> resolving. 2. Staph bacteremia==> r/o line sepsis. 3. Pneumonia. 4. End-stage renal disease, hemodialysis dependent. 5. Diabetes. 6. Chronic obstructive pulmonary disease. 7. Left chest PermCath. PLAN: The patient remains stable. Repeat bld cx 01/26 negative, will keep on I Vanco for one more week, dc Cefepime [facility] staff Problems: Consultation Date/Type/Reason Admit Date/Time Jan 20, 2017 at 15:31 Type of Consultation: ID Referring Provider: SCOT DÍAZ Exam/Review of Systems Vital Signs Vitals Vital Signs Date Time Temp Pulse Resp B/P Pulse Ox O2 Delivery O2 Flow Rate FiO2 01/30/17 12:00 95 01/30/17 11:17 97.6 18 155/90 95 01/29/17 13:53 2.0 01/29/17 12:00 Room Air Intake and Output 01/29/17 01/29/17 01/30/17 15:00 23:00 07:00 Intake Total 700 ml 200 ml 350 ml Output Total 2300 ml 0 ml Balance -1600 ml 200 ml 350 ml Results Result Diagram: 01/30/17 0615 01/30/17 0615 Results 24 hrs Laboratory Tests Test 01/29/17 17:54 01/29/17 20:53 01/30/17 06:15 01/30/17 07:56 Bedside Glucose 105 88 75 White Blood Count 6.7 Red Blood Count 4.06 L Hemoglobin 11.6 L Hematocrit 38.2 L Mean Corpuscular Volume 94.1 Mean Corpuscular Hemoglobin 28.6 L Mean Corpuscular Hemoglobin Concent 30.4 L Red Cell Distribution Width 17.2 H Platelet Count 105 L Mean Platelet Volume 11.3 H Neutrophils % 74.6 Lymphocytes % 11.8 L Monocytes % 8.7 Eosinophils % 3.6 Basophils % 0.9 Nucleated Red Blood Cells % 0.0 Neutrophils # 5.0 Lymphocytes # 0.8 Monocytes # 0.6 Eosinophils # 0.2 Basophils # 0.1 Nucleated Red Blood Cells # 0.0 Sodium Level 140 Potassium Level 4.7 Chloride Level 99 Carbon Dioxide Level 26 Anion Gap 20 H Blood Urea Nitrogen 41 #H Creatinine 10.40 H Glucose Level 71 Calcium Level 9.2 Phosphorus Level 7.5 H Magnesium Level 2.5 Test 01/30/17 11:50 Bedside Glucose 77 Medications Medications Current Medications Aspirin (Halfprin) 81 mg DAILY PO Last administered on 01/30/17 08:48; Admin Dose 81 MG; Start 01/21/17 at 09:00 Atorvastatin Calcium (Lipitor) 20 mg HS PO Last administered on 01/29/17 20:55 ; Admin Dose 20 MG; Start 01/20/17 at 21:00 Gabapentin (Neurontin) 100 mg BID PO Last administered on 01/30/17 08:48; Admin Dose 100 MG; Start 01/20/17 at 21:00 Lisinopril (Zestril) 2.5 mg DAILY PO Last administered on 01/30/17 08:48; Admin Dose 2.5 MG; Start 01/21/17 at 09:00 Insulin Glargine (Lantus) 17 unit DAILY@20 SC Last administered on 01/29/17 21 :02; Admin Dose 17 UNIT; Start 01/20/17 at 20:00 Miscellaneous Information 1 ea NOTE XX ; Start 01/20/17 at 17:30 Glucose (Glutose) 15 gm Q15M PRN PO DECREASED GLUCOSE; Start 01/20/17 at 17:30 Glucose (Glutose) 22.5 gm Q15M PRN PO DECREASED GLUCOSE; Start 01/20/17 at 17:30 Dextrose (D50w Syringe) 25 ml Q15M PRN IV DECREASED GLUCOSE; Start 01/20/17 at 17:30 Dextrose (D50w Syringe) 50 ml Q15M PRN IV DECREASED GLUCOSE; Start 01/20/17 at 17:30 Glucagon (Glucagen) 1 mg Q15M PRN IM DECREASED GLUCOSE; Start 01/20/17 at 17:30 Glucose (Glutose) 15 gm Q15M PRN BUCCAL DECREASED GLUCOSE; Start 01/20/17 at 17: 30 Diagnostic Test (Pha) (Accu-Chek) 1 ea 02 XX Last administered on 01/26/17 02: 00; Admin Dose 1 EA; Start 01/21/17 at 02:00 Zolpidem Tartrate (Ambien) 5 mg HS PRN PO INSOMNIA Last administered on 22:14; Admin Dose 5 MG; Start 01/20/17 at 23:30 Polyethylene Glycol (Miralax) 17 gm DAILY PO Last administered on 01/30/17 08: 48; Admin Dose 17 GM; Start 01/21/17 at 15:00 Docusate Sodium (Colace) 100 mg BID PO Last administered on 01/30/17 08:48; Admin Dose 100 MG; Start 01/21/17 at 15:00 Quetiapine Fumarate (Seroquel) 200 mg QHS PO Last administered on 01/29/17 20: 55; Admin Dose 200 MG; Start 01/21/17 at 21:00 Ondansetron HCl (Zofran Inj) 4 mg Q6H PRN IV NAUSEA AND/OR VOMITING Last administered on 01/26/17 20:52; Admin Dose 4 MG; Start 01/24/17 at 23:45 Hydralazine HCl (Apresoline) 10 mg Q6H PRN IV For SBP > 160; Start 01/28/17 at 21:30 Divalproex Sodium (Depakote Er) 750 mg BID PO Last administered on 01/30/17 13 :01; Admin Dose 750 MG; Start 01/30/17 at 12:00 Clindamycin HCl (Cleocin) 300 mg Q8 PO ; Start 01/30/17 at 14:00 Lactobacillus Acidophilus/ Rhamnosus (Culturelle) 1 cap BID PO ; Start 01/30/17 at 21:00 AUBRIE MORGAN NP Jan 30, 2017 13:23
[2017-01-30] MEDS ORDERED: VANCOMYCIN IV PER PHARMACY XX SCH (13:30)
[2017-01-30] MEDS: CLINDAMYCIN 300 MG CAP PO SCH (14:12)
[2017-01-30] MEDS: ATORVASTATIN 20 MG TAB PO SCH (21:27)
[2017-01-30] MEDS: QUETIAPINE 100 MG TAB PO SCH (21:27)
[2017-01-30] MEDS: INSULIN GLARGINE [LANtus] 3 ML PEN SC SCH (21:31)
[2017-01-31] VITALS (22 sets, daily range): BP systolic 110–168; BP diastolic 70–100; PULSE 83–107; RESP 14–19
[2017-01-31] MEDS: CLINDAMYCIN 300 MG CAP PO SCH ×2 (00:02→06:14)
[2017-01-31] MEDS: LACTOBACILLUS RHAMNOSUS CAP PO SCH ×3 (00:02→20:39)
[2017-01-31] MEDS: ACCUCHECK AT 2AM (Patients on SS coverage) XX SCH (02:00)
[2017-01-31] MEDS: LEVOTHYROXINE 150 MCG TAB PO SCH (06:14)
[2017-01-31 06:15] LABS: ADD SCAN DIFF NO
[2017-01-31 06:30] LABS: BASOPHIL # 0.1 10^3/ul (0.0-0.1); BASOPHILS % 0.7 % (0.0-2.0); EOSINOPHILS # 0.3 10^3/ul (0.0-0.5); EOSINOPHILS % 4.6 % (0.0-7.0); HEMATOCRIT 37.7 % (42.0-52.0); HEMOGLOBIN 11.7 g/dl (14.0-18.0); LYMPHOCYTES # 1.1 10^3/ul (0.8-2.9); LYMPHOCYTES % 15.6 % (15.0-51.0); MEAN CORPUSCULAR HEMOGLOBIN 28.7 pg (29.0-33.0); MEAN CORPUSCULAR VOLUME 92.6 fl (82.0-101.0); MEAN PLATELET VOLUME 11.8 fl (7.4-10.4); MONOCYTE # 0.6 10^3/ul (0.3-0.9); MONOCYTES % 8.5 % (0.0-11.0); NEUTROPHIL # 4.9 10^3/ul (1.6-7.5); NEUTROPHILS % 70.3 % (39.0-77.0); RED BLOOD COUNT 4.07 10^6/ul (4.70-6.10); WHITE BLOOD COUNT 6.9 10^3/ul (4.8-10.8)
[2017-01-31 06:54] LABS: PLATELET COUNT 131 10^3/UL (140-415)
[2017-01-31 07:29] LABS: CALCIUM 9.2 mg/dl (8.4-10.2); CREATININE 12.02 mg/dl (0.61-1.24); MAGNESIUM 2.5 mg/dl (1.7-2.5); POTASSIUM 4.6 mmol/L (3.5-5.1)
[2017-01-31] MEDS: INSULIN ASPART [NOVOLOG] 3 ML PEN SC SCH ×4 (07:55→20:29)
[2017-01-31] MEDS: SEVELAMER 800 MG TAB PO SCH ×3 (08:28→17:47)
[2017-01-31] MEDS: ASPIRIN (EC) 81 MG TAB PO SCH (08:29)
[2017-01-31] MEDS: DIVALPROEX (ER) 250 MG TAB PO SCH ×2 (08:29→20:42)
[2017-01-31] MEDS: GABAPENTIN 100 MG CAP PO SCH ×2 (08:30→20:39)
[2017-01-31] MEDS: DOCUSATE SODIUM 100 MG CAP PO SCH ×2 (08:32→20:38)
[2017-01-31] MEDS: POLYETHYLENE GLYCOL 17 GM PACKET PO SCH (08:32)
[2017-01-31] MEDS: LISINOPRIL 5 MG TAB PO SCH (08:34)
--- NOTE | 2017-01-31 13:09 | PN ---
DATE: 01/31/2017 SUBJECTIVE: The patient is stable, no acute events overnight. No fevers, chills, nausea, vomiting. No shortness of breath. OBJECTIVE: VITAL SIGNS: Blood pressure 139/95, respirations 18, pulse 92, temperature 98.3. HEENT: Head is normocephalic. NECK: Supple. HEART: Regular rate. LUNGS: Show diminished breath sounds at the bases. ABDOMEN: Soft, nontender to palpation. No rebound or guarding. EXTREMITIES: Negative for clubbing, cyanosis. No edema. DERMATOLOGIC: No rashes. MUSCULOSKELETAL: No joint effusions. NEUROLOGIC: No change in exam. MEDICATIONS: Have been reviewed. LABORATORY DATA: Shows sodium 139, potassium 4.6, chloride 97, BUN 47, creatinine 12.02. White cou nt 6.9, hemoglobin 11.7, hematocrit 37.7, platelet count is 131. ASSESSMENT AND PLAN: 1. End-stage renal disease, scheduled for hemodialysis today. We will dialyze for 3 hours, 3 K bat h, calcium 2.9. 2. Hyperkalemia, resolved. Continue low-potassium diet. Continue hemodialysis. 3. Anemia. Continue to monitor hemoglobin and hematocrit levels. 4. Mineral bone disorder. Continue to monitor calcium and phosphorus levels. 5. Volume overload, improving. Continue ultrafiltration dialysis. 6. Acute encephalopathy. Etiology is toxic metabolic. Continue hemodialysis. Follow up with neur ology. 7. Sepsis, clinically improving. Continue current antibiotic course. 8. Diabetes. Continue Accu-Cheks and insulin sliding scale. 9. Hypothyroidism. Continue Synthroid. 10. Bipolar disorder. Continue current medical management. 11. Cardiomyopathy. Continue current treatment plan. 12. Psychosis. Continue to observe. Follow up with neurology for recommendations. 13. Possible seizures. Continue Depakote. Dictated By: KERI MEADE/LEAH Conf#: [id number] DID#: [id number]
--- NOTE | 2017-01-31 14:17 | CONS ---
Date/Time of Note Date/Time of Note DATE: 01/31/17 TIME: 14:15 Assessment/Plan Assessment/Plan Chief Complaint/Hosp Course SUBJECTIVE: No acute changes, looks comfortable, no fevers. INDWELLINGS: Left chest PermCath. MICROBIOLOGY: Blood culture on admission grew Staph. Urine culture negative. ANTIMICROBIALS: Vancomycin. PHYSICAL EXAMINATION: GENERAL: This is an obese, well-developed, middle-aged man who is in no distress. HEENT: Head atraumatic, normocephalic. Sclerae anicteric. Buccal mucosa pink. NECK: Supple. CHEST: Rise symmetrical. Breath sounds diminished to bases. HEART: S1, S2. ABDOMEN: Soft, bowel sounds present. EXTREMITIES: Without cyanosis. ASSESSMENT: 1. S/p sepsis with acute encephalopathy, tachycardia, and hypoxemia==> resolving. 2. Staph bacteremia==> r/o line sepsis. 3. Pneumonia==> treated. 4. End-stage renal disease, hemodialysis dependent. 5. Diabetes. 6. Chronic obstructive pulmonary disease. 7. Left chest PermCath. PLAN: The patient remains stable. Repeat bld cx 01/26 negative, will keep on Vanco for one more week, aspiration precautions [facility] staff Problems: Consultation Date/Type/Reason Admit Date/Time Jan 20, 2017 at 15:31 Type of Consultation: ID Referring Provider: SCOT DÍAZ Exam/Review of Systems Vital Signs Vitals Vital Signs Date Time Temp Pulse Resp B/P Pulse Ox O2 Delivery O2 Flow Rate FiO2 01/31/17 12:12 93 01/31/17 12:10 98.3 18 139/95 95 01/31/17 08:34 Room Air 01/29/17 13:53 2.0 Intake and Output 01/30/17 01/30/17 01/31/17 15:00 23:00 07:00 Intake Total 240 ml 400 ml Balance 240 ml 400 ml Results Result Diagram: 01/31/17 0535 01/31/17 0535 Results 24 hrs Laboratory Tests Test 01/30/17 16:58 01/30/17 21:23 01/31/17 05:35 01/31/17 12:06 Bedside Glucose 112 114 72 White Blood Count 6.9 Red Blood Count 4.07 L Hemoglobin 11.7 L Hematocrit 37.7 L Mean Corpuscular Volume 92.6 Mean Corpuscular Hemoglobin 28.7 L Mean Corpuscular Hemoglobin Concent 31.0 L Red Cell Distribution Width 17.0 H Platelet Count 131 #L Mean Platelet Volume 11.8 H Neutrophils % 70.3 Lymphocytes % 15.6 Monocytes % 8.5 Eosinophils % 4.6 Basophils % 0.7 Nucleated Red Blood Cells % 0.0 Neutrophils # 4.9 Lymphocytes # 1.1 Monocytes # 0.6 Eosinophils # 0.3 Basophils # 0.1 Nucleated Red Blood Cells # 0.0 Sodium Level 139 Potassium Level 4.6 Chloride Level 97 Carbon Dioxide Level 27 Anion Gap 20 H Blood Urea Nitrogen 47 H Creatinine 12.02 H Glucose Level 60 #L Hemoglobin A1c 5.6 Calcium Level 9.2 Magnesium Level 2.5 Medications Medications Current Medications Aspirin (Halfprin) 81 mg DAILY PO Last administered on 01/31/17 08:29; Admin Dose 81 MG; Start 01/21/17 at 09:00 Atorvastatin Calcium (Lipitor) 20 mg HS PO Last administered on 01/30/17 21:27 ; Admin Dose 20 MG; Start 01/20/17 at 21:00 Gabapentin (Neurontin) 100 mg BID PO Last administered on 01/31/17 08:30; Admin Dose 100 MG; Start 01/20/17 at 21:00 Lisinopril (Zestril) 2.5 mg DAILY PO Last administered on 01/31/17 08:34; Admin Dose 2.5 MG; Start 01/21/17 at 09:00 Insulin Glargine (Lantus) 17 unit DAILY@20 SC Last administered on 01/30/17 21 :31; Admin Dose 17 UNIT; Start 01/20/17 at 20:00 Miscellaneous Information 1 ea NOTE XX ; Start 01/20/17 at 17:30 Glucose (Glutose) 15 gm Q15M PRN PO DECREASED GLUCOSE; Start 01/20/17 at 17:30 Glucose (Glutose) 22.5 gm Q15M PRN PO DECREASED GLUCOSE; Start 01/20/17 at 17:30 Dextrose (D50w Syringe) 25 ml Q15M PRN IV DECREASED GLUCOSE; Start 01/20/17 at 17:30 Dextrose (D50w Syringe) 50 ml Q15M PRN IV DECREASED GLUCOSE; Start 01/20/17 at 17:30 Glucagon (Glucagen) 1 mg Q15M PRN IM DECREASED GLUCOSE; Start 01/20/17 at 17:30 Glucose (Glutose) 15 gm Q15M PRN BUCCAL DECREASED GLUCOSE; Start 01/20/17 at 17: 30 Diagnostic Test (Pha) (Accu-Chek) 1 ea 02 XX Last administered on 01/26/17 02: 00; Admin Dose 1 EA; Start 01/21/17 at 02:00 Zolpidem Tartrate (Ambien) 5 mg HS PRN PO INSOMNIA Last administered on 22:14; Admin Dose 5 MG; Start 01/20/17 at 23:30 Polyethylene Glycol (Miralax) 17 gm DAILY PO Last administered on 01/30/17 08: 48; Admin Dose 17 GM; Start 01/21/17 at 15:00 Docusate Sodium (Colace) 100 mg BID PO Last administered on 01/30/17 21:26; Admin Dose 100 MG; Start 01/21/17 at 15:00 Quetiapine Fumarate (Seroquel) 200 mg QHS PO Last administered on 01/30/17 21: 27; Admin Dose 200 MG; Start 01/21/17 at 21:00 Ondansetron HCl 4 mg 4 mg Q6H PRN IV NAUSEA AND/OR VOMITING Last administered on 01/26/17 20:52; Admin Dose 4 MG; Start 01/24/17 at 23:45 Vancomycin HCl (Vancocin) 250 ml @ 125 mls/hr Q5D IVPB Last administered on 22:46; Admin Dose 125 MLS/HR; Start 01/28/17 at 22:00 Hydralazine HCl (Apresoline) 10 mg Q6H PRN IV For SBP > 160; Start 01/28/17 at 21:30 Divalproex Sodium (Depakote Er) 750 mg BID PO Last administered on 01/31/17 08 :29; Admin Dose 750 MG; Start 01/30/17 at 12:00 Lactobacillus Acidophilus/ Rhamnosus (Culturelle) 1 cap BID PO Last administered on 01/31/17 08:30; Admin Dose 1 CAP; Start 01/30/17 at 21:00 AUBRIE MORGAN NP Jan 31, 2017 14:17
--- NOTE | 2017-01-31 15:39 | PN ---
DATE: 01/31/2017 TIME OF EVALUATION: 1:30 p.m. SUBJECTIVE DATA: The patient is consistently asking to go home. Remains afebrile. The patient has been refusing his blood sugar checks. The patient has a 1:[address] OBJECTIVE DATA: VITAL SIGNS: Temperature 98.3, pulse rate 90, respiratory rate 16, blood 139/94 , oxygen saturation 97% on room air. GENERAL: This is a slightly overweight -[place] male lying in bed in no apparent distress. HEENT: Head normocephalic and atraumatic. Eyes: Anicteric sclerae. Conjunctivae clear. ENT: Nasal septum is midline. Oral mucosa is dry. NECK: Supple. No JVD noticed. RESPIRATORY: Bilateral diminished breath sounds. No adventitious breath sounds heard. No use of accessory muscles of respiration. CARDIAC: Regular rate and rhythm. S1 and S2 heard. ABDOMEN: Soft, nontender and nondistended. Bowel sounds positive in all 4 quadrants. GENITOURINARY: Deferred. EXTREMITIES: No cyanosis, no clubbing, no edema. Peripheral pulses are palpable. NEUROLOGIC: The patient is awake and alert. Moves all 4 extremities. Oriented x3. LABORATORY AND DIAGNOSTIC DATA: WBC 6.9, hemoglobin 11.7, hematocrit 37.7, platelet count 131. Sodium 139, potassium 4.6, chloride 97, carbon dioxide 26, anion gap 20, BUN 87, creatinine 12.02, glucose 60, calcium 9.2, magnesium 2.5. ASSESSMENT AND PLAN: 1. Acute encephalopathy. Most probably toxic metabolic in origin from underlying sepsis versus from central nervous system disorder. The patient's mental status is improving. The patient is still impulsive. The patient has a 1:[address] 2. Right-sided pneumonia with right-sided pleural effusion. Continue antibiotics as per Infectious Disease. 3. Sepsis with underlying gram-positive bacteremia. No evidence of septic shock. Continue antibiotics as per Infectious Disease. 4. Acute respiratory failure. Hypoxic. Most probably secondary to underlying pneumonia. Improved. Continue supplemental oxygen. 5. End-stage renal disease on hemodialysis. Continue hemodialysis as per nephrology. 6. Cardiomyopathy with ejection fraction of 40% as per 2D echocardiogram done on 04/10/2016. Continue IGLESIA inhibitors. 7. Hypothyroidism. Continue Synthroid. 8. Bipolar disorder. Continue mood stabilizers. 9. Seizure disorder. EEG confirming seizures. Status post evaluation by neurology. Continue Depakote. 10. Dyslipidemia. Continue statin. 11. Type 2 diabetes mellitus. Off oral medications. On sliding scale insulin. The patient refusing blood sugar check. Hemoglobin A1c pending. 12. Fluid, electrolytes and nutrition. Carbohydrate controlled diet. 13. Deep venous thrombosis prophylaxis. Bilateral lower extremity sequential compression devices. 14. Normocytic hypochromic anemia. Iron panel shows iron deficiency. Will start the patient on iron supplements. 15. Plan. The patient ideally needs a half-way facility because of impulsive behavior and frequent falls. The patient refusing half-way facility and informed us that he will think about going to a half-way facility. Will plan for half-way facility placement since the patient is unsafe for discharge for home. Case discussed with Dr. Jamil. SOHAIL JAMIL MD, AM/LEAH Conf#: [id number] DID#: [id number] MTDD
[2017-01-31] MEDS ORDERED: ALTEPLASE (CATHFLO) 2 MG INJ CATHETER ONE (16:00)
[2017-01-31] MEDS: SOD FERRIC GLUC COMPLX 125 MG in SOD CHLORIDE 0.9% 100 ML IVPB SCH (16:31)
[2017-01-31] MEDS: INSULIN GLARGINE [LANtus] 3 ML PEN SC SCH (20:00)
[2017-01-31] MEDS: ATORVASTATIN 20 MG TAB PO SCH (20:39)
[2017-01-31] MEDS: QUETIAPINE 100 MG TAB PO SCH (20:42)
[2017-01-31] MEDS: ZOLPIDEM 5 MG TAB PO PRN (23:12)
[2017-02-01] VITALS (12 sets, daily range): BP systolic 109–158; BP diastolic 83–97; PULSE 75–121; RESP 18–90
[2017-02-01] MEDS: ACCUCHECK AT 2AM (Patients on SS coverage) XX SCH (01:17)
[2017-02-01 05:58] LABS: ADD SCAN DIFF NO
[2017-02-01 06:11] LABS: BASOPHIL # 0.1 10^3/ul (0.0-0.1); BASOPHILS % 0.7 % (0.0-2.0); EOSINOPHILS # 0.3 10^3/ul (0.0-0.5); EOSINOPHILS % 4.8 % (0.0-7.0); HEMATOCRIT 37.2 % (42.0-52.0); HEMOGLOBIN 11.2 g/dl (14.0-18.0); LYMPHOCYTES # 1.1 10^3/ul (0.8-2.9); LYMPHOCYTES % 15.8 % (15.0-51.0); MEAN CORPUSCULAR HEMOGLOBIN 28.1 pg (29.0-33.0); MEAN CORPUSCULAR HGB CONC 30.1 g/dl (32.0-37.0); MEAN CORPUSCULAR VOLUME 93.5 fl (82.0-101.0); MEAN PLATELET VOLUME 11.3 fl (7.4-10.4); MONOCYTE # 0.6 10^3/ul (0.3-0.9); MONOCYTES % 8.2 % (0.0-11.0); NEUTROPHIL # 4.7 10^3/ul (1.6-7.5); NEUTROPHILS % 70.4 % (39.0-77.0); PLATELET COUNT 122 10^3/UL (140-415); RED BLOOD COUNT 3.98 10^6/ul (4.70-6.10); WHITE BLOOD COUNT 6.7 10^3/ul (4.8-10.8)
[2017-02-01] MEDS: LEVOTHYROXINE 150 MCG TAB PO SCH (06:22)
[2017-02-01 06:37] LABS: CALCIUM 8.9 mg/dl (8.4-10.2); CREATININE 12.68 mg/dl (0.61-1.24); POTASSIUM 4.7 mmol/L (3.5-5.1)
[2017-02-01 06:57] LABS: MAGNESIUM 2.4 mg/dl (1.7-2.5); PHOSPHORUS 9.1 mg/dl (2.5-4.9)
[2017-02-01] MEDS: INSULIN ASPART [NOVOLOG] 3 ML PEN SC SCH ×4 (07:55→20:38)
[2017-02-01] MEDS: LACTOBACILLUS RHAMNOSUS CAP PO SCH ×2 (08:34→20:31)
[2017-02-01] MEDS: DOCUSATE SODIUM 100 MG CAP PO SCH ×2 (08:34→20:31)
[2017-02-01] MEDS: ASPIRIN (EC) 81 MG TAB PO SCH (08:34)
[2017-02-01] MEDS: GABAPENTIN 100 MG CAP PO SCH ×2 (08:35→20:31)
[2017-02-01] MEDS: SEVELAMER 800 MG TAB PO SCH ×3 (08:35→18:05)
[2017-02-01] MEDS: DIVALPROEX (ER) 250 MG TAB PO SCH ×2 (08:35→20:32)
[2017-02-01] MEDS: LISINOPRIL 5 MG TAB PO SCH (08:36)
[2017-02-01] MEDS: POLYETHYLENE GLYCOL 17 GM PACKET PO SCH (08:36)
--- NOTE | 2017-02-01 10:05 | PN ---
DATE: 02/01/2017 SUBJECTIVE: The patient had hemodialysis yesterday and tolerated it well. No other acute events no ron. OBJECTIVE: VITAL SIGNS: Blood pressure is 132/83, respirations 19, pulse 124, temperature 98.4. HEENT: Head is normocephalic. NECK: Supple. HEART: Regular rate. LUNGS: Showed diminished breath sounds at the base, otherwise clear. ABDOMEN: Soft, nontender to palpation. No rebound or guarding. EXTREMITIES: Negative for clubbing or cyanosis. No edema. DERMATOLOGIC: No rashes. MUSCULOSKELETAL: Have no joint effusion. NEUROLOGIC: No change in exam. MEDICATIONS: The patient's medications have been reviewed. LABORATORY DATA: Shows white count 6.7, hemoglobin 11.2, hematocrit 37.2, platelet count is 122. S odium 139, potassium 4.7, BUN 15, creatinine 12.68, phosphorus 9.1. ASSESSMENT AND PLAN: 1. End-stage renal disease. Plan for dialysis tomorrow for 3 hours on a 2K bath, calcium 2.5. 2. Hypokalemia. Improved. 3. Anemia. Continue to monitor hemoglobin and hematocrit levels. Continue Epogen as needed. 4. Mineral bone disorder. The patient is hypophosphatemic. Continue phos binders. Continue dialy sis. 5. Acute encephalopathy. Etiology is toxic metabolic, possible psychosis. Follow up tele-psych. 6. Sepsis. Clinically improving. Continue the current antibiotic course. 7. Diabetes. Continue Accu-Cheks and insulin sliding scale. 8. Hypothyroidism. Continue Synthroid. 9. Bipolar disorder. Continue medical management. 10. Cardiomyopathy. Continue the current treatment plan. 11. Seizure disorder. Continue Depakote. 12. Psychosis. Follow up with neurology. Dictated By: KERI MEADE/NTS Conf#: [id number] DID#: [id number]
--- NOTE | 2017-02-01 13:16 | CONS ---
Date/Time of Note Date/Time of Note DATE: 02/01/17 TIME: 13:15 Assessment/Plan Assessment/Plan Chief Complaint/Hosp Course SUBJECTIVE: No acute changes, looks comfortable, no fevers. INDWELLINGS: Left chest PermCath. MICROBIOLOGY: Blood culture on admission grew Staph. Urine culture negative. ANTIMICROBIALS: Vancomycin. PHYSICAL EXAMINATION: GENERAL: This is an obese, well-developed, middle-aged man who is in no distress. HEENT: Head atraumatic, normocephalic. Sclerae anicteric. Buccal mucosa pink. NECK: Supple. CHEST: Rise symmetrical. Breath sounds diminished to bases. HEART: S1, S2. ABDOMEN: Soft, bowel sounds present. EXTREMITIES: Without cyanosis. ASSESSMENT: 1. S/p sepsis with acute encephalopathy, tachycardia, and hypoxemia==> resolving. 2. Staph bacteremia==> r/o line sepsis. 3. Pneumonia==> treated. 4. End-stage renal disease, hemodialysis dependent. 5. Diabetes. 6. Chronic obstructive pulmonary disease. 7. Left chest PermCath. PLAN: The patient remains stable. Repeat bld cx 01/26 negative, will keep on Vanco for 5 more days, continue present care/aspiration precautions [facility] staff Problems: Consultation Date/Type/Reason Admit Date/Time Jan 20, 2017 at 15:31 Type of Consultation: ID Referring Provider: SCOT DÍAZ Exam/Review of Systems Vital Signs Vitals Vital Signs Date Time Temp Pulse Resp B/P Pulse Ox O2 Delivery O2 Flow Rate FiO2 02/01/17 12:24 97.6 97 20 134/88 96 01/31/17 15:47 21 01/31/17 08:34 Room Air 01/29/17 13:53 2.0 Intake and Output 01/31/17 01/31/17 02/01/17 15:00 23:00 07:00 Intake Total 400 ml Output Total 2600 ml Balance -2200 ml Results Result Diagram: 02/01/17 0540 02/01/17 0540 Results 24 hrs Laboratory Tests Test 01/31/17 17:46 01/31/17 20:12 02/01/17 01:04 02/01/17 05:40 Bedside Glucose 125 71 89 White Blood Count 6.7 Red Blood Count 3.98 L Hemoglobin 11.2 L Hematocrit 37.2 L Mean Corpuscular Volume 93.5 Mean Corpuscular Hemoglobin 28.1 L Mean Corpuscular Hemoglobin Concent 30.1 L Red Cell Distribution Width 17.0 H Platelet Count 122 L Mean Platelet Volume 11.3 H Neutrophils % 70.4 Lymphocytes % 15.8 Monocytes % 8.2 Eosinophils % 4.8 Basophils % 0.7 Nucleated Red Blood Cells % 0.0 Neutrophils # 4.7 Lymphocytes # 1.1 Monocytes # 0.6 Eosinophils # 0.3 Basophils # 0.1 Nucleated Red Blood Cells # 0.0 Sodium Level 139 Potassium Level 4.7 Chloride Level 101 Carbon Dioxide Level 23 Anion Gap 20 H Blood Urea Nitrogen 50 H Creatinine 12.68 H Glucose Level 75 Calcium Level 8.9 Phosphorus Level 9.1 H Magnesium Level 2.4 Ammonia 23 Thyroid Stimulating Hormone (TSH) 0.311 L Free Thyroxine 1.01 Test 02/01/17 08:03 02/01/17 12:46 Bedside Glucose 81 93 Medications Medications Current Medications Aspirin (Halfprin) 81 mg DAILY PO Last administered on 02/01/17 08:34; Admin Dose 81 MG; Start 01/21/17 at 09:00 Atorvastatin Calcium (Lipitor) 20 mg HS PO Last administered on 01/31/17 20:39 ; Admin Dose 20 MG; Start 01/20/17 at 21:00 Gabapentin (Neurontin) 100 mg BID PO Last administered on 02/01/17 08:35; Admin Dose 100 MG; Start 01/20/17 at 21:00 Lisinopril (Zestril) 2.5 mg DAILY PO Last administered on 02/01/17 08:36; Admin Dose 2.5 MG; Start 01/21/17 at 09:00 Insulin Glargine (Lantus) 17 unit DAILY@20 SC Last administered on 01/30/17 21 :31; Admin Dose 17 UNIT; Start 01/20/17 at 20:00 Miscellaneous Information 1 ea NOTE XX ; Start 01/20/17 at 17:30 Glucose (Glutose) 15 gm Q15M PRN PO DECREASED GLUCOSE; Start 01/20/17 at 17:30 Glucose (Glutose) 22.5 gm Q15M PRN PO DECREASED GLUCOSE; Start 01/20/17 at 17:30 Dextrose (D50w Syringe) 25 ml Q15M PRN IV DECREASED GLUCOSE; Start 01/20/17 at 17:30 Dextrose (D50w Syringe) 50 ml Q15M PRN IV DECREASED GLUCOSE; Start 01/20/17 at 17:30 Glucagon (Glucagen) 1 mg Q15M PRN IM DECREASED GLUCOSE; Start 01/20/17 at 17:30 Glucose (Glutose) 15 gm Q15M PRN BUCCAL DECREASED GLUCOSE; Start 01/20/17 at 17: 30 Diagnostic Test (Pha) (Accu-Chek) 1 ea 02 XX Last administered on 02/01/17 01: 17; Admin Dose 1 EA; Start 01/21/17 at 02:00 Zolpidem Tartrate (Ambien) 5 mg HS PRN PO INSOMNIA Last administered on 23:12; Admin Dose 5 MG; Start 01/20/17 at 23:30 Polyethylene Glycol (Miralax) 17 gm DAILY PO Last administered on 01/30/17 08: 48; Admin Dose 17 GM; Start 01/21/17 at 15:00 Docusate Sodium (Colace) 100 mg BID PO Last administered on 02/01/17 08:34; Admin Dose 100 MG; Start 01/21/17 at 15:00 Quetiapine Fumarate (Seroquel) 200 mg QHS PO Last administered on 01/31/17 20: 42; Admin Dose 200 MG; Start 01/21/17 at 21:00 Ondansetron HCl 4 mg 4 mg Q6H PRN IV NAUSEA AND/OR VOMITING Last administered on 01/26/17 20:52; Admin Dose 4 MG; Start 01/24/17 at 23:45 Vancomycin HCl (Vancocin) 250 ml @ 125 mls/hr Q5D IVPB Last administered on 22:46; Admin Dose 125 MLS/HR; Start 01/28/17 at 22:00 Hydralazine HCl (Apresoline) 10 mg Q6H PRN IV For SBP > 160; Start 01/28/17 at 21:30 Divalproex Sodium (Depakote Er) 750 mg BID PO Last administered on 02/01/17 08 :35; Admin Dose 750 MG; Start 01/30/17 at 12:00 Lactobacillus Acidophilus/ Rhamnosus 1 cap 1 cap BID PO Last administered on 08:34; Admin Dose 1 CAP; Start 01/30/17 at 21:00 Ferric Sodium Gluconate Complex/ Sodium Chloride (Ferrlecit/NS) 110 ml @ 100 mls/hr Q24H IVPB ; Start 01/31/17 at 17:00; Stop 02/02/17 at 18:05 AUBRIE MORGAN NP Feb 01, 2017 13:16
--- NOTE | 2017-02-01 15:15 | PN ---
Date/Time of Note Date/Time of Note DATE: 02/01/17 TIME: 15:15 Assessment/Plan VTE Prophylaxis VTE Prophylaxis Intervention: SCD's Lines/Catheters IV [facility]ter [facility]from [facility] Assessment/Plan Chief Complaint/Hosp Course 1. Acute encephalopathy, most probably toxic metabolic in origin from underlying sepsis versus from central nervous system disorder. The patient's mental status is improving. The patient is still impulsive. The patient has a 1:[address] 2. Right-sided pneumonia with right-sided pleural effusion. Continue antibiotics as per Infectious Disease. 3. Sepsis with underlying gram-positive bacteremia. No evidence of septic shock. Continue antibiotics as per Infectious Disease. 4. Acute respiratory failure. Hypoxic most probably secondary to underlying pneumonia. Improved. Continue supplemental oxygen. 5. End-stage renal disease on hemodialysis. Continue hemodialysis as per nephrology. 6. Cardiomyopathy with ejection fraction of 40% as per 2D echocardiogram done on 04/10/2016. Continue IGLESIA inhibitors. 7. Hypothyroidism. Continue Synthroid. 8. Bipolar disorder. Continue mood stabilizers. 9. Seizure disorder. EEG confirming seizures. Status post evaluation by neurology. Continue Depakote. 10. Dyslipidemia. Continue statins. 11. Type 2 diabetes mellitus. Off oral medications. On sliding scale insulin. The patient refusing blood sugar check. Hemoglobin A1c 5.6. 12. Fluid, electrolytes and nutrition. Carbohydrate controlled diet. 13. Deep venous thrombosis prophylaxis. Bilateral lower extremity sequential compression devices. 14. Normocytic hypochromic anemia. Iron panel shows iron deficiency. Will continue the patient on iron supplements. 15. Plan. The patient ideally needs a long-term facility because of impulsive behavior and frequent falls. The patient refusing long-term facility and informed us that he will think about going to a long-term facility. Will plan for long-term facility placement since the patient is unsafe for discharge for home. Meanwhile will await PT evaluation. Case discussed with Dr. Jamil. Problems: Subjective 24 Hr Interval Summary Free Text/Dictation The patient very upset that physical therapy has not seen him yet. He continues to insist that he wants to go home and he does not want to go to a long-term facility. Exam/Review of Systems Vital Signs Vitals Vital Signs Date Time Temp Pulse Resp B/P Pulse Ox O2 Delivery O2 Flow Rate FiO2 02/01/17 12:24 97.6 97 20 134/88 96 01/31/17 15:47 21 01/31/17 08:34 Room Air 01/29/17 13:53 2.0 Intake and Output 01/31/17 01/31/17 02/01/17 15:00 23:00 07:00 Intake Total 400 ml Output Total 2600 ml Balance -2200 ml Exam GENERAL: This is a slightly overweight -[place] male lying in bed in no apparent distress. HEENT: Head normocephalic and atraumatic. Eyes: Anicteric sclerae. Conjunctivae clear. ENT: Nasal septum is midline. Oral mucosa is dry. NECK: Supple. No JVD noticed. RESPIRATORY: Bilateral diminished breath sounds. No adventitious breath sounds heard. No use of accessory muscles of respiration. CARDIAC: Regular rate and rhythm. S1 and S2 heard. ABDOMEN: Soft, nontender and nondistended. Bowel sounds positive in all 4 quadrants. GENITOURINARY: Deferred. EXTREMITIES: No cyanosis, no clubbing, no edema. Peripheral pulses are palpable. NEUROLOGIC: The patient is awake and alert. Moves all 4 extremities. Oriented x3. Results Result Diagram: 02/01/17 0540 02/01/17 0540 Results 24 hrs Laboratory Tests Test 01/31/17 17:46 01/31/17 20:12 02/01/17 01:04 02/01/17 05:40 Bedside Glucose 125 71 89 White Blood Count 6.7 Red Blood Count 3.98 L Hemoglobin 11.2 L Hematocrit 37.2 L Mean Corpuscular Volume 93.5 Mean Corpuscular Hemoglobin 28.1 L Mean Corpuscular Hemoglobin Concent 30.1 L Red Cell Distribution Width 17.0 H Platelet Count 122 L Mean Platelet Volume 11.3 H Neutrophils % 70.4 Lymphocytes % 15.8 Monocytes % 8.2 Eosinophils % 4.8 Basophils % 0.7 Nucleated Red Blood Cells % 0.0 Neutrophils # 4.7 Lymphocytes # 1.1 Monocytes # 0.6 Eosinophils # 0.3 Basophils # 0.1 Nucleated Red Blood Cells # 0.0 Sodium Level 139 Potassium Level 4.7 Chloride Level 101 Carbon Dioxide Level 23 Anion Gap 20 H Blood Urea Nitrogen 50 H Creatinine 12.68 H Glucose Level 75 Calcium Level 8.9 Phosphorus Level 9.1 H Magnesium Level 2.4 Ammonia 23 Thyroid Stimulating Hormone (TSH) 0.311 L Free Thyroxine 1.01 Test 02/01/17 08:03 02/01/17 12:46 Bedside Glucose 81 93 Medications Medications Current Medications Aspirin (Halfprin) 81 mg DAILY PO Last administered on 02/01/17 08:34; Admin Dose 81 MG; Start 01/21/17 at 09:00 Atorvastatin Calcium (Lipitor) 20 mg HS PO Last administered on 01/31/17 20:39 ; Admin Dose 20 MG; Start 01/20/17 at 21:00 Gabapentin (Neurontin) 100 mg BID PO Last administered on 02/01/17 08:35; Admin Dose 100 MG; Start 01/20/17 at 21:00 Lisinopril (Zestril) 2.5 mg DAILY PO Last administered on 02/01/17 08:36; Admin Dose 2.5 MG; Start 01/21/17 at 09:00 Insulin Glargine (Lantus) 17 unit DAILY@20 SC Last administered on 01/30/17 21 :31; Admin Dose 17 UNIT; Start 01/20/17 at 20:00 Miscellaneous Information 1 ea NOTE XX ; Start 01/20/17 at 17:30 Glucose (Glutose) 15 gm Q15M PRN PO DECREASED GLUCOSE; Start 01/20/17 at 17:30 Glucose (Glutose) 22.5 gm Q15M PRN PO DECREASED GLUCOSE; Start 01/20/17 at 17:30 Dextrose (D50w Syringe) 25 ml Q15M PRN IV DECREASED GLUCOSE; Start 01/20/17 at 17:30 Dextrose (D50w Syringe) 50 ml Q15M PRN IV DECREASED GLUCOSE; Start 01/20/17 at 17:30 Glucagon (Glucagen) 1 mg Q15M PRN IM DECREASED GLUCOSE; Start 01/20/17 at 17:30 Glucose (Glutose) 15 gm Q15M PRN BUCCAL DECREASED GLUCOSE; Start 01/20/17 at 17: 30 Diagnostic Test (Pha) (Accu-Chek) 1 ea 02 XX Last administered on 02/01/17 01: 17; Admin Dose 1 EA; Start 01/21/17 at 02:00 Zolpidem Tartrate (Ambien) 5 mg HS PRN PO INSOMNIA Last administered on 23:12; Admin Dose 5 MG; Start 01/20/17 at 23:30 Polyethylene Glycol (Miralax) 17 gm DAILY PO Last administered on 01/30/17 08: 48; Admin Dose 17 GM; Start 01/21/17 at 15:00 Docusate Sodium (Colace) 100 mg BID PO Last administered on 02/01/17 08:34; Admin Dose 100 MG; Start 01/21/17 at 15:00 Quetiapine Fumarate (Seroquel) 200 mg QHS PO Last administered on 01/31/17 20: 42; Admin Dose 200 MG; Start 01/21/17 at 21:00 Ondansetron HCl 4 mg 4 mg Q6H PRN IV NAUSEA AND/OR VOMITING Last administered on 01/26/17 20:52; Admin Dose 4 MG; Start 01/24/17 at 23:45 Vancomycin HCl (Vancocin) 250 ml @ 125 mls/hr Q5D IVPB Last administered on 22:46; Admin Dose 125 MLS/HR; Start 01/28/17 at 22:00 Hydralazine HCl (Apresoline) 10 mg Q6H PRN IV For SBP > 160; Start 01/28/17 at 21:30 Divalproex Sodium (Depakote Er) 750 mg BID PO Last administered on 02/01/17 08 :35; Admin Dose 750 MG; Start 01/30/17 at 12:00 Lactobacillus Acidophilus/ Rhamnosus 1 cap 1 cap BID PO Last administered on 08:34; Admin Dose 1 CAP; Start 01/30/17 at 21:00 Ferric Sodium Gluconate Complex/ Sodium Chloride (Ferrlecit/NS) 110 ml @ 100 mls/hr Q24H IVPB ; Start 01/31/17 at 17:00; Stop 02/02/17 at 18:05 SOHAIL GRAY NP Feb 01, 2017 15:15
[2017-02-01] MEDS: SOD FERRIC GLUC COMPLX 125 MG in SOD CHLORIDE 0.9% 100 ML IVPB SCH (16:17)
[2017-02-01] MEDS: ATORVASTATIN 20 MG TAB PO SCH (20:31)
[2017-02-01] MEDS: QUETIAPINE 100 MG TAB PO SCH (20:32)
[2017-02-01] MEDS: INSULIN GLARGINE [LANtus] 3 ML PEN SC SCH (20:37)
[2017-02-01] MEDS ORDERED: OXYCODONE/ACETAMINOPHEN (5/325) TAB PO ONE (21:00)
[2017-02-01] MEDS: ZOLPIDEM 5 MG TAB PO PRN (21:12)
[2017-02-02] VITALS (20 sets, daily range): BP systolic 110–182; BP diastolic 63–106; PULSE 80–110; RESP 16–18
[2017-02-02] MEDS: ACCUCHECK AT 2AM (Patients on SS coverage) XX SCH (01:58)
[2017-02-02] MEDS: LEVOTHYROXINE 150 MCG TAB PO SCH (06:54)
[2017-02-02 07:45] LABS: CALCIUM 8.7 mg/dl (8.4-10.2); CREATININE 13.79 mg/dl (0.61-1.24)
[2017-02-02 07:51] LABS: MAGNESIUM 2.5 mg/dl (1.7-2.5); PHOSPHORUS 9.7 mg/dl (2.5-4.9)
[2017-02-02 07:53] LABS: POTASSIUM 5.3 mmol/L (3.5-5.1)
[2017-02-02] MEDS: SEVELAMER 800 MG TAB PO SCH ×3 (07:55→18:24)
[2017-02-02 08:15] LABS: ADD SCAN DIFF NO
[2017-02-02 08:27] LABS: ABNORMAL IP MESSAGE 1; BASOPHIL # 0.1 10^3/ul (0.0-0.1); BASOPHILS % 0.9 % (0.0-2.0); EOSINOPHILS # 0.3 10^3/ul (0.0-0.5); EOSINOPHILS % 4.9 % (0.0-7.0); HEMATOCRIT 34.7 % (42.0-52.0); HEMOGLOBIN 10.7 g/dl (14.0-18.0); LYMPHOCYTES # 1.3 10^3/ul (0.8-2.9); LYMPHOCYTES % 21.9 % (15.0-51.0); MEAN CORPUSCULAR HEMOGLOBIN 28.7 pg (29.0-33.0); MEAN CORPUSCULAR HGB CONC 30.8 g/dl (32.0-37.0); MONOCYTE # 0.6 10^3/ul (0.3-0.9); MONOCYTES % 9.5 % (0.0-11.0); NEUTROPHIL # 3.7 10^3/ul (1.6-7.5); NEUTROPHILS % 62.5 % (39.0-77.0); PLATELET COUNT 122 10^3/UL (140-415); RED BLOOD COUNT 3.73 10^6/ul (4.70-6.10); RED CELL DISTRIBUTION WIDTH 16.8 % (11.5-14.5); WHITE BLOOD COUNT 5.9 10^3/ul (4.8-10.8)
--- NOTE | 2017-02-02 08:45 | PN ---
DATE: 02/02/2017 SUBJECTIVE: The patient is stable. No acute events overnight. No fevers, chills, nausea or vomiti ng. The patient is pending hemodialysis this morning. OBJECTIVE: VITAL SIGNS: Blood pressure 150/88, respirations 18, pulse 93, temperature 98.5. HEENT: Head is normocephalic. NECK: Supple. HEART: Regular rate. LUNGS: Showed diminished breath sounds at the base. ABDOMEN: Soft, nontender to palpation. No rebound or guarding. EXTREMITIES: Negative for clubbing or cyanosis. No edema. DERMATOLOGIC: No rashes. MUSCULOSKELETAL: Have no joint effusion. NEUROLOGIC: No change in exam. MEDICATIONS: The patient's medications have been reviewed. LABORATORY DATA: Shows sodium 139, potassium 5.3, BUN 66, creatinine 13.79, phosphorus 9.7. ASSESSMENT AND PLAN: 1. End-stage renal disease. Plan for dialysis today for 3 hours, 2K bath, calcium 2.5. Will ultra filtrate as tolerated. 2. Hyperkalemia. Will dialyze on a 2-potassium bath. 3. Anemia. Continue to monitor hemoglobin and hematocrit levels. Continue Epogen. 4. Mineral bone disorder. Continue phos binders. Continue hemodialysis. Continue low phosphorus diet. 5. Acute encephalopathy. Etiology is toxic metabolic, possible psychosis. Continue to monitor. F ollow up with neurology. 6. Seizure disorder. Continue Depakote. 7. Sepsis. Clinically improving. Continue the current antibiotic regimen. 8. Diabetes. Continue Accu-Cheks and insulin sliding scale. 9. Hypothyroidism. Continue Synthroid. 10. Bipolar disorder. Continue the current medical management. 11. Cardiomyopathy. Continue the current treatment plan. Dictated By: KERI MEADE/LEAH Conf#: [id number] DID#: [id number]
[2017-02-02] MEDS: POLYETHYLENE GLYCOL 17 GM PACKET PO SCH (09:00)
[2017-02-02] MEDS ORDERED: OXYCODONE/ACETAMINOPHEN (5/325) TAB PO ONE ×2 (09:00→21:00)
[2017-02-02] MEDS: LISINOPRIL 5 MG TAB PO SCH (09:00)
[2017-02-02] MEDS: LACTOBACILLUS RHAMNOSUS CAP PO SCH ×2 (09:12→20:34)
[2017-02-02] MEDS: DOCUSATE SODIUM 100 MG CAP PO SCH ×2 (09:12→20:34)
[2017-02-02] MEDS: GABAPENTIN 100 MG CAP PO SCH ×2 (09:13→20:34)
[2017-02-02] MEDS: DIVALPROEX (ER) 250 MG TAB PO SCH ×2 (09:13→20:34)
[2017-02-02] MEDS: ASPIRIN (EC) 81 MG TAB PO SCH (09:13)
[2017-02-02] MEDS: INSULIN ASPART [NOVOLOG] 3 ML PEN SC SCH ×4 (09:14→20:28)
--- NOTE | 2017-02-02 15:19 | PDOCDIS ---
SOHAIL GRAY NP Feb 02, 2017 15:18 CONDITION Patient Condition: Stable HOME CARE INSTRUCTIONS: Special Diet: Renal, 1800 OTHER ORDERS: Other Orders: 1. Take medications as per prescription. 2. Activities with assist. 3. No driving until cleared by neurology. 4. Follow-up with outpatient neurology. 5. Follow-up with the primary care physician in 7 days. 6. Follow a renal, carbohydrate controlled diet SOHAIL GRAY NP Feb 02, 2017 15:18
[2017-02-02] MEDS ORDERED: DIVA250T4 PO (15:24)
[2017-02-02] MEDS ORDERED: DOXY100T20 PO (15:26)
[2017-02-02] MEDS: SOD FERRIC GLUC COMPLX 125 MG in SOD CHLORIDE 0.9% 100 ML IVPB SCH (17:00)
--- NOTE | 2017-02-02 17:45 | PN ---
Date/Time of Note Date/Time of Note DATE: 02/02/17 TIME: 17:42 Assessment/Plan VTE Prophylaxis VTE Prophylaxis Intervention: SCD's Lines/Catheters IV [facility]from [facility] Saline Lock Assessment/Plan Chief Complaint/Hosp Course 1. Acute encephalopathy, most probably toxic metabolic in origin from underlying sepsis versus from central nervous system disorder. The patient's mental status is improving. The patient is still impulsive. The patient has a 1:[address] 2. Right-sided pneumonia with right-sided pleural effusion. Continue antibiotics as per Infectious Disease. 3. Sepsis with underlying gram-positive bacteremia. No evidence of septic shock. Continue antibiotics as per Infectious Disease. 4. Acute respiratory failure. Hypoxic. Most probably secondary to underlying pneumonia. Resolved. 5. End-stage renal disease on hemodialysis. Continue hemodialysis as per nephrology. 6. Cardiomyopathy with ejection fraction of 40% as per 2D echocardiogram done on 04/10/2016. Continue IGLESIA inhibitors. 7. Hypothyroidism. Continue Synthroid. 8. Bipolar disorder. Continue mood stabilizers. 9. Seizure disorder. EEG confirming seizures. Status post evaluation by neurology. Continue Depakote. 10. Dyslipidemia. Continue statins. 11. Type 2 diabetes mellitus. Off oral medications. On sliding scale insulin. The patient refusing blood sugar check. Hemoglobin A1c 5.6. 12. Fluid, electrolytes and nutrition. Carbohydrate controlled diet. 13. Deep venous thrombosis prophylaxis. Bilateral lower extremity sequential compression devices. 14. Normocytic hypochromic anemia. Iron panel shows iron deficiency. Will continue the patient on iron supplements. 15. Plan. The patient ideally needs a chcf facility because of impulsive behavior and frequent falls. Patient refusing to go to a chcf facility. Status post evaluation by physical therapy. The patient asking to talk to the neurologist. Will have neurologist reevaluate the patient. Case discussed with Dr. Jamil. Problems: Subjective 24 Hr Interval Summary Free Text/Dictation The patient refuses to go to a chcf facility. Continues to have one- to-one sitter. Exam/Review of Systems Vital Signs Vitals Vital Signs Date Time Temp Pulse Resp B/P Pulse Ox O2 Delivery O2 Flow Rate FiO2 02/02/17 16:39 89 02/02/17 15:45 98.1 18 157/87 95 01/31/17 15:47 21 01/31/17 08:34 Room Air 01/29/17 13:53 2.0 Intake and Output 02/01/17 02/01/17 02/02/17 15:00 23:00 07:00 Intake Total 320 ml 460 ml Balance 320 ml 460 ml Exam GENERAL: This is a slightly overweight -[place] male lying in bed in no apparent distress. HEENT: Head normocephalic and atraumatic. Eyes: Anicteric sclerae. Conjunctivae clear. ENT: Nasal septum is midline. Oral mucosa is dry. NECK: Supple. No JVD noticed. RESPIRATORY: Bilateral diminished breath sounds. No adventitious breath sounds heard. No use of accessory muscles of respiration. CARDIAC: Regular rate and rhythm. S1 and S2 heard. ABDOMEN: Soft, nontender and nondistended. Bowel sounds positive in all 4 quadrants. GENITOURINARY: Deferred. EXTREMITIES: No cyanosis, no clubbing, no edema. Peripheral pulses are palpable. NEUROLOGIC: The patient is awake and alert. Moves all 4 extremities. Oriented x3. Results Result Diagram: 02/02/17 0600 02/02/17 0600 Results 24 hrs Laboratory Tests Test 02/01/17 20:36 02/02/17 06:00 02/02/17 08:14 02/02/17 12:08 Bedside Glucose 90 90 88 White Blood Count 5.9 Red Blood Count 3.73 L Hemoglobin 10.7 L Hematocrit 34.7 L Mean Corpuscular Volume 93.0 Mean Corpuscular Hemoglobin 28.7 L Mean Corpuscular Hemoglobin Concent 30.8 L Red Cell Distribution Width 16.8 H Platelet Count 122 L Mean Platelet Volume Neutrophils % 62.5 Lymphocytes % 21.9 Monocytes % 9.5 Eosinophils % 4.9 Basophils % 0.9 Nucleated Red Blood Cells % 0.0 Neutrophils # 3.7 Lymphocytes # 1.3 Monocytes # 0.6 Eosinophils # 0.3 Basophils # 0.1 Nucleated Red Blood Cells # 0.0 Sodium Level 139 Potassium Level 5.3 H Chloride Level 102 Carbon Dioxide Level 23 Anion Gap 19 H Blood Urea Nitrogen 66 H Creatinine 13.79 H Glucose Level 64 #L Calcium Level 8.7 Phosphorus Level 9.7 H Magnesium Level 2.5 Medications Medications Current Medications Aspirin (Halfprin) 81 mg DAILY PO Last administered on 02/02/17t 09:13; Admin Dose 81 MG; Start 6/4/17 at 09:00 Atorvastatin Calcium (Lipitor) 20 mg HS PO Last administered on 02/01/17 20:31 ; Admin Dose 20 MG; Start 01/20/17 at 21:00 Gabapentin (Neurontin) 100 mg BID PO Last administered on 02/02/17 09:13; Admin Dose 100 MG; Start 01/20/17 at 21:00 Lisinopril (Zestril) 2.5 mg DAILY PO Last administered on 02/01/17 08:36; Admin Dose 2.5 MG; Start 01/21/17 at 09:00 Insulin Glargine (Lantus) 17 unit DAILY@20 SC Last administered on 02/01/17 20 :37; Admin Dose 17 UNIT; Start 01/20/17 at 20:00 Miscellaneous Information 1 ea NOTE XX ; Start 01/20/17 at 17:30 Glucose (Glutose) 15 gm Q15M PRN PO DECREASED GLUCOSE; Start 01/20/17 at 17:30 Glucose (Glutose) 22.5 gm Q15M PRN PO DECREASED GLUCOSE; Start 01/20/17 at 17:30 Dextrose (D50w Syringe) 25 ml Q15M PRN IV DECREASED GLUCOSE; Start 01/20/17 at 17:30 Dextrose (D50w Syringe) 50 ml Q15M PRN IV DECREASED GLUCOSE; Start 01/20/17 at 17:30 Glucagon (Glucagen) 1 mg Q15M PRN IM DECREASED GLUCOSE; Start 01/20/17 at 17:30 Glucose (Glutose) 15 gm Q15M PRN BUCCAL DECREASED GLUCOSE; Start 01/20/17 at 17: 30 Diagnostic Test (Pha) (Accu-Chek) 1 ea 02 XX Last administered on 02/01/17 01: 17; Admin Dose 1 EA; Start 01/21/17 at 02:00 Zolpidem Tartrate (Ambien) 5 mg HS PRN PO INSOMNIA Last administered on 21:12; Admin Dose 5 MG; Start 01/20/17 at 23:30 Polyethylene Glycol (Miralax) 17 gm DAILY PO Last administered on 01/30/17 08: 48; Admin Dose 17 GM; Start 01/21/17 at 15:00 Docusate Sodium (Colace) 100 mg BID PO Last administered on 02/02/17 09:12; Admin Dose 100 MG; Start 01/21/17 at 15:00 Quetiapine Fumarate (Seroquel) 200 mg QHS PO Last administered on 02/01/17 20: 32; Admin Dose 200 MG; Start 01/21/17 at 21:00 Ondansetron HCl 4 mg 4 mg Q6H PRN IV NAUSEA AND/OR VOMITING Last administered on 01/26/17 20:52; Admin Dose 4 MG; Start 01/24/17 at 23:45 Vancomycin HCl (Vancocin) 250 ml @ 125 mls/hr Q5D IVPB Last administered on 22:46; Admin Dose 125 MLS/HR; Start 01/28/17 at 22:00 Hydralazine HCl (Apresoline) 10 mg Q6H PRN IV For SBP > 160; Start 01/28/17 at 21:30 Divalproex Sodium (Depakote Er) 750 mg BID PO Last administered on 02/02/17 09 :13; Admin Dose 750 MG; Start 01/30/17 at 12:00 Lactobacillus Acidophilus/ Rhamnosus 1 cap 1 cap BID PO Last administered on 09:12; Admin Dose 1 CAP; Start 01/30/17 at 21:00 Ferric Sodium Gluconate Complex/ Sodium Chloride (Ferrlecit/NS) 110 ml @ 100 mls/hr Q24H IVPB ; Start 01/31/17 at 17:00; Stop 02/02/17 at 18:05 SOHAIL GRAY NP Feb 02, 2017 17:45
[2017-02-02] MEDS: INSULIN GLARGINE [LANtus] 3 ML PEN SC SCH (20:32)
[2017-02-02] MEDS: QUETIAPINE 100 MG TAB PO SCH (20:34)
[2017-02-02] MEDS: ATORVASTATIN 20 MG TAB PO SCH (20:34)
--- NOTE | 2017-02-02 21:15 | CONS ---
Date/Time of Note Date/Time of Note DATE: 02/02/17 TIME: 21:14 Assessment/Plan Assessment/Plan Chief Complaint/Hosp Course SUBJECTIVE: No acute changes, looks comfortable, no fevers. INDWELLINGS: Left chest PermCath. MICROBIOLOGY: Blood culture on admission grew Staph. Urine culture negative. ANTIMICROBIALS: Vancomycin. PHYSICAL EXAMINATION: GENERAL: This is an obese, well-developed, middle-aged man who is in no distress. HEENT: Head atraumatic, normocephalic. Sclerae anicteric. Buccal mucosa pink. NECK: Supple. CHEST: Rise symmetrical. Breath sounds diminished to bases. HEART: S1, S2. ABDOMEN: Soft, bowel sounds present. EXTREMITIES: Without cyanosis. ASSESSMENT: 1. S/p sepsis with acute encephalopathy, tachycardia, and hypoxemia==> resolving. 2. Staph bacteremia==> r/o line sepsis. 3. Pneumonia==> treated. 4. End-stage renal disease, hemodialysis dependent. 5. Diabetes. 6. Chronic obstructive pulmonary disease. 7. Left chest PermCath. PLAN: The patient remains stable. Repeat bld cx 01/26 negative, will dc [facility] on Sunday, continue present care/aspiration precautions [facility] staff Problems: Consultation Date/Type/Reason Admit Date/Time Jan 20, 2017 at 15:31 Type of Consultation: ID Referring Provider: SCOT DÍAZ Exam/Review of Systems Vital Signs Vitals Vital Signs Date Time Temp Pulse Resp B/P Pulse Ox O2 Delivery O2 Flow Rate FiO2 02/02/17 20:00 95 02/02/17 15:45 98.1 18 157/87 95 01/31/17 15:47 21 01/31/17 08:34 Room Air 01/29/17 13:53 2.0 Intake and Output 02/01/17 02/01/17 02/02/17 15:00 23:00 07:00 Intake Total 320 ml 460 ml Balance 320 ml 460 ml Results Result Diagram: 02/02/17 0600 02/02/17 0600 Results 24 hrs Laboratory Tests Test 02/02/17 06:00 02/02/17 08:14 02/02/17 12:08 02/02/17 18:02 White Blood Count 5.9 Red Blood Count 3.73 L Hemoglobin 10.7 L Hematocrit 34.7 L Mean Corpuscular Volume 93.0 Mean Corpuscular Hemoglobin 28.7 L Mean Corpuscular Hemoglobin Concent 30.8 L Red Cell Distribution Width 16.8 H Platelet Count 122 L Mean Platelet Volume Neutrophils % 62.5 Lymphocytes % 21.9 Monocytes % 9.5 Eosinophils % 4.9 Basophils % 0.9 Nucleated Red Blood Cells % 0.0 Neutrophils # 3.7 Lymphocytes # 1.3 Monocytes # 0.6 Eosinophils # 0.3 Basophils # 0.1 Nucleated Red Blood Cells # 0.0 Sodium Level 139 Potassium Level 5.3 H Chloride Level 102 Carbon Dioxide Level 23 Anion Gap 19 H Blood Urea Nitrogen 66 H Creatinine 13.79 H Glucose Level 64 #L Calcium Level 8.7 Phosphorus Level 9.7 H Magnesium Level 2.5 Bedside Glucose 90 88 74 Test 02/02/17 20:26 Bedside Glucose 118 Medications Medications Current Medications Aspirin (Halfprin) 81 mg DAILY PO Last administered on 02/02/17 09:13; Admin Dose 81 MG; Start 01/21/17 at 09:00 Atorvastatin Calcium (Lipitor) 20 mg HS PO Last administered on 02/02/17 20:34 ; Admin Dose 20 MG; Start 01/20/17 at 21:00 Gabapentin (Neurontin) 100 mg BID PO Last administered on 02/02/17 20:34; Admin Dose 100 MG; Start 01/20/17 at 21:00 Lisinopril (Zestril) 2.5 mg DAILY PO Last administered on 02/01/17 08:36; Admin Dose 2.5 MG; Start 01/21/17 at 09:00 Insulin Glargine (Lantus) 17 unit DAILY@20 SC Last administered on 02/02/17 20 :32; Admin Dose 17 UNIT; Start 01/20/17 at 20:00 Miscellaneous Information 1 ea NOTE XX ; Start 01/20/17 at 17:30 Glucose (Glutose) 15 gm Q15M PRN PO DECREASED GLUCOSE; Start 01/20/17 at 17:30 Glucose (Glutose) 22.5 gm Q15M PRN PO DECREASED GLUCOSE; Start 01/20/17 at 17:30 Dextrose (D50w Syringe) 25 ml Q15M PRN IV DECREASED GLUCOSE; Start 01/20/17 at 17:30 Dextrose (D50w Syringe) 50 ml Q15M PRN IV DECREASED GLUCOSE; Start 01/20/17 at 17:30 Glucagon (Glucagen) 1 mg Q15M PRN IM DECREASED GLUCOSE; Start 01/20/17 at 17:30 Glucose (Glutose) 15 gm Q15M PRN BUCCAL DECREASED GLUCOSE; Start 01/20/17 at 17: 30 Diagnostic Test (Pha) (Accu-Chek) 1 ea 02 XX Last administered on 02/01/17 01: 17; Admin Dose 1 EA; Start 01/21/17 at 02:00 Zolpidem Tartrate (Ambien) 5 mg HS PRN PO INSOMNIA Last administered on 21:12; Admin Dose 5 MG; Start 01/20/17 at 23:30 Polyethylene Glycol (Miralax) 17 gm DAILY PO Last administered on 01/30/17 08: 48; Admin Dose 17 GM; Start 01/21/17 at 15:00 Docusate Sodium (Colace) 100 mg BID PO Last administered on 02/02/17 20:34; Admin Dose 100 MG; Start 01/21/17 at 15:00 Quetiapine Fumarate (Seroquel) 200 mg QHS PO Last administered on 02/02/17 20: 34; Admin Dose 200 MG; Start 01/21/17 at 21:00 Ondansetron HCl 4 mg 4 mg Q6H PRN IV NAUSEA AND/OR VOMITING Last administered on 01/26/17 20:52; Admin Dose 4 MG; Start 01/24/17 at 23:45 Vancomycin HCl (Vancocin) 250 ml @ 125 mls/hr Q5D IVPB Last administered on 22:46; Admin Dose 125 MLS/HR; Start 01/28/17 at 22:00 Hydralazine HCl (Apresoline) 10 mg Q6H PRN IV For SBP > 160; Start 01/28/17 at 21:30 Divalproex Sodium (Depakote Er) 750 mg BID PO Last administered on 02/02/17 20 :34; Admin Dose 750 MG; Start 01/30/17 at 12:00 Lactobacillus Acidophilus/ Rhamnosus (Culturelle) 1 cap BID PO Last administered on 02/02/17 20:34; Admin Dose 1 CAP; Start 01/30/17 at 21:00 AUBRIE MORGAN NP Feb 02, 2017 21:15
[2017-02-02] MEDS: ZOLPIDEM 5 MG TAB PO PRN (21:35)
[2017-02-02] MEDS: VANCOMYCIN 1 GM in NS 250 ML IVPB SCH (22:11)
[2017-02-03] VITALS (13 sets, daily range): BP systolic 81–158; BP diastolic 55–91; PULSE 77–100; RESP 16–20
[2017-02-03] MEDS: ACCUCHECK AT 2AM (Patients on SS coverage) XX SCH (01:52)
[2017-02-03] MEDS ORDERED: SOD CHLORIDE 0.9% 500 ML IV ONE (02:00)
[2017-02-03] MEDS: LEVOTHYROXINE 150 MCG TAB PO SCH (06:49)
[2017-02-03] MEDS: POLYETHYLENE GLYCOL 17 GM PACKET PO SCH (09:00)
[2017-02-03] MEDS: DOCUSATE SODIUM 100 MG CAP PO SCH ×2 (09:20→20:49)
[2017-02-03] MEDS: INSULIN ASPART [NOVOLOG] 3 ML PEN SC SCH ×4 (09:20→21:00)
[2017-02-03] MEDS: GABAPENTIN 100 MG CAP PO SCH ×2 (09:20→20:49)
[2017-02-03] MEDS: LACTOBACILLUS RHAMNOSUS CAP PO SCH ×2 (09:20→20:49)
[2017-02-03] MEDS: SEVELAMER 800 MG TAB PO SCH ×3 (09:20→18:00)
[2017-02-03] MEDS: LISINOPRIL 5 MG TAB PO SCH (09:21)
[2017-02-03] MEDS: DIVALPROEX (ER) 250 MG TAB PO SCH ×2 (09:21→20:49)
[2017-02-03] MEDS: ASPIRIN (EC) 81 MG TAB PO SCH (09:21)
--- NOTE | 2017-02-03 10:06 | CONS ---
Date/Time of Note Date/Time of Note DATE: 02/03/17 TIME: 10:04 Consult Date/Type/Reason Admit Date/Time Jan 20, 2017 at 15:31 Type of Consultation: neph Ordering Provider: SCOT DÍAZ The patient is stable. No acute events overnight. No fevers, chills, nausea or vomiting. The patient tolerated hd yesterday. OBJECTIVE: HEENT: Head is normocephalic. NECK: Supple. HEART: Regular rate. LUNGS: Showed diminished breath sounds at the base. ABDOMEN: Soft, nontender to palpation. No rebound or guarding. EXTREMITIES: Negative for clubbing or cyanosis. No edema. DERMATOLOGIC: No rashes. MUSCULOSKELETAL: Have no joint effusion. NEUROLOGIC: No change in exam. Objective Vital Signs Date Time Temp Pulse Resp B/P Pulse Ox O2 Delivery O2 Flow Rate FiO2 02/03/17 08:14 98.0 86 16 118/59 94 01/31/17 15:47 21 01/31/17 08:34 Room Air Intake and Output 02/02/17 02/02/17 02/03/17 15:00 23:00 07:00 Intake Total 300 ml 800 ml 1050 ml Output Total 3300 ml Balance -3000 ml 800 ml 1050 ml Results/Medications Result Diagram: 02/02/17 0600 02/02/17 0600 Results 24 hrs Laboratory Tests Test 02/02/17 12:08 02/02/17 18:02 02/02/17 20:26 02/03/17 09:19 Bedside Glucose 88 74 118 68 L Medications Current Medications Aspirin (Halfprin) 81 mg DAILY PO Last administered on 02/03/17 09:21; Admin Dose 81 MG; Start 01/21/17 at 09:00 Atorvastatin Calcium (Lipitor) 20 mg HS PO Last administered on 02/02/17 20:34 ; Admin Dose 20 MG; Start 01/20/17 at 21:00 Gabapentin (Neurontin) 100 mg BID PO Last administered on 02/03/17 09:20; Admin Dose 100 MG; Start 01/20/17 at 21:00 Lisinopril (Zestril) 2.5 mg DAILY PO Last administered on 02/03/17 09:21; Admin Dose 2.5 MG; Start 01/21/17 at 09:00 Insulin Glargine (Lantus) 17 unit DAILY@20 SC Last administered on 02/02/17 20 :32; Admin Dose 17 UNIT; Start 01/20/17 at 20:00 Miscellaneous Information 1 ea NOTE XX ; Start 01/20/17 at 17:30 Glucose (Glutose) 15 gm Q15M PRN PO DECREASED GLUCOSE; Start 01/20/17 at 17:30 Glucose (Glutose) 22.5 gm Q15M PRN PO DECREASED GLUCOSE; Start 01/20/17 at 17:30 Dextrose (D50w Syringe) 25 ml Q15M PRN IV DECREASED GLUCOSE; Start 01/20/17 at 17:30 Dextrose (D50w Syringe) 50 ml Q15M PRN IV DECREASED GLUCOSE; Start 01/20/17 at 17:30 Glucagon (Glucagen) 1 mg Q15M PRN IM DECREASED GLUCOSE; Start 01/20/17 at 17:30 Glucose (Glutose) 15 gm Q15M PRN BUCCAL DECREASED GLUCOSE; Start 01/20/17 at 17: 30 Diagnostic Test (Pha) (Accu-Chek) 1 ea 02 XX Last administered on 02/01/17 01: 17; Admin Dose 1 EA; Start 01/21/17 at 02:00 Zolpidem Tartrate (Ambien) 5 mg HS PRN PO INSOMNIA Last administered on 21:35; Admin Dose 5 MG; Start 01/20/17 at 23:30 Polyethylene Glycol (Miralax) 17 gm DAILY PO Last administered on 01/30/17 08: 48; Admin Dose 17 GM; Start 01/21/17 at 15:00 Docusate Sodium (Colace) 100 mg BID PO Last administered on 02/03/17 09:20; Admin Dose 100 MG; Start 01/21/17 at 15:00 Quetiapine Fumarate (Seroquel) 200 mg QHS PO Last administered on 02/02/17 20: 34; Admin Dose 200 MG; Start 01/21/17 at 21:00 Ondansetron HCl 4 mg 4 mg Q6H PRN IV NAUSEA AND/OR VOMITING Last administered on 01/26/17 20:52; Admin Dose 4 MG; Start 01/24/17 at 23:45 Vancomycin HCl (Vancocin) 250 ml @ 125 mls/hr Q5D IVPB Last administered on 22:11; Admin Dose 125 MLS/HR; Start 01/28/17 at 22:00; Stop 02/04/17 at 06:00 Hydralazine HCl (Apresoline) 10 mg Q6H PRN IV For SBP > 160; Start 01/28/17 at 21:30 Divalproex Sodium (Depakote Er) 750 mg BID PO Last administered on 02/03/17 09 :21; Admin Dose 750 MG; Start 01/30/17 at 12:00 Lactobacillus Acidophilus/ Rhamnosus (Culturelle) 1 cap BID PO Last administered on 02/03/17 09:20; Admin Dose 1 CAP; Start 01/30/17 at 21:00 Assessment/Plan Chief Complaint/Hosp Course ASSESSMENT AND PLAN: 1. End-stage renal disease. Plan for dialysis tomorrow for 3 hours, 2K bath, calcium 2.5. Will ultrafiltrate as tolerated. 2. Hyperkalemia. Will dialyze on a 2-potassium bath. 3. Anemia. Continue to monitor hemoglobin and hematocrit levels. Continue Epogen. 4. Mineral bone disorder. Continue phos binders. Continue hemodialysis. Continue low phosphorus diet. 5. Acute encephalopathy. Etiology is toxic metabolic, possible psychosis. Continue to monitor. Follow up with neurology. 6. Seizure disorder. Continue Depakote. 7. Sepsis. Clinically improving. Continue the current antibiotic regimen. 8. Diabetes. Continue Accu-Cheks and insulin sliding scale. 9. Hypothyroidism. Continue Synthroid. 10. Bipolar disorder. Continue the current medical management. 11. Cardiomyopathy. Continue the current treatment plan. Problems: VANESA MONTEJO MD Feb 03, 2017 10:06
--- NOTE | 2017-02-03 12:11 | PN ---
Date/Time of Note Date/Time of Note DATE: 02/03/17 TIME: 12:10 Assessment/Plan VTE Prophylaxis VTE Prophylaxis Intervention: SCD's Lines/Catheters IV [facility]from [facility] Saline Lock Assessment/Plan Chief Complaint/Hosp Course 1. Acute encephalopathy, most probably toxic metabolic in origin from underlying sepsis versus from central nervous system disorder. The patient's mental status is improving. The patient is still impulsive. The patient has a 1:[address] 2. Right-sided pneumonia with right-sided pleural effusion. Continue antibiotics as per Infectious Disease. 3. Sepsis with underlying gram-positive bacteremia. No evidence of septic shock. Continue antibiotics as per Infectious Disease. 4. Acute respiratory failure. Hypoxic. Most probably secondary to underlying pneumonia. Resolved. 5. End-stage renal disease on hemodialysis. Continue hemodialysis as per nephrology. 6. Cardiomyopathy with ejection fraction of 40% as per 2D echocardiogram done on 04/10/2016. Continue IGLESIA inhibitors. 7. Hypothyroidism. Continue Synthroid. 8. Bipolar disorder. Continue mood stabilizers. 9. Seizure disorder. EEG confirming seizures. Status post evaluation by neurology. Continue Depakote. 10. Dyslipidemia. Continue statins. 11. Type 2 diabetes mellitus. Off oral medications. On sliding scale insulin. Hemoglobin A1c 5.6. 12. Fluid, electrolytes and nutrition. Carbohydrate controlled diet. 13. Deep venous thrombosis prophylaxis. Bilateral lower extremity sequential compression devices. 14. Normocytic hypochromic anemia. Iron panel shows iron deficiency. Will continue the patient on iron supplements. 15. Plan. The patient ideally needs a senior care facility because of impulsive behavior and frequent falls. Patient refusing to go to a senior care facility. Status post evaluation by physical therapy. The patient asking to talk to the neurologist. Will have neurologist reevaluate the patient. Talked to the patients friend/spokes person Neo Barriga on 2016. Informed him about the findings in EEG. The patient wants to talk to the neurologist who started him on Depakote. Unfortunately that neurologist is not weatherization technician this weekend. Therefore, the covering neurologist has been notified. Case discussed with Dr. Jamil. Problems: Subjective 24 Hr Interval Summary Free Text/Dictation Had an episode of hypotension last night and was given IV bolus with improvement in BP. Exam/Review of Systems Vital Signs Vitals Vital Signs Date Time Temp Pulse Resp B/P Pulse Ox O2 Delivery O2 Flow Rate FiO2 02/03/17 12:05 77 02/03/17 11:12 98.0 18 154/78 96 01/31/17 15:47 21 01/31/17 08:34 Room Air Intake and Output 02/02/17 02/02/17 02/03/17 15:00 23:00 07:00 Intake Total 300 ml 800 ml 1050 ml Output Total 3300 ml Balance -3000 ml 800 ml 1050 ml Exam GENERAL: This is a slightly overweight -[place] male lying in bed in no apparent distress. HEENT: Head normocephalic and atraumatic. Eyes: Anicteric sclerae. Conjunctivae clear. ENT: Nasal septum is midline. Oral mucosa is dry. NECK: Supple. No JVD noticed. RESPIRATORY: Bilateral diminished breath sounds. No adventitious breath sounds heard. No use of accessory muscles of respiration. CARDIAC: Regular rate and rhythm. S1 and S2 heard. ABDOMEN: Soft, nontender and nondistended. Bowel sounds positive in all 4 quadrants. GENITOURINARY: Deferred. EXTREMITIES: No cyanosis, no clubbing, no edema. Peripheral pulses are palpable. NEUROLOGIC: The patient is awake and alert. Moves all 4 extremities. Oriented x3. Results Result Diagram: 02/02/17 0600 02/02/17 0600 Results 24 hrs Laboratory Tests Test 02/02/17 18:02 02/02/17 20:26 02/03/17 09:19 02/03/17 10:23 Bedside Glucose 74 118 68 L 75 Medications Medications Current Medications Aspirin (Halfprin) 81 mg DAILY PO Last administered on 02/03/17 09:21; Admin Dose 81 MG; Start 01/21/17 at 09:00 Atorvastatin Calcium (Lipitor) 20 mg HS PO Last administered on 02/02/17 20:34 ; Admin Dose 20 MG; Start 01/20/17 at 21:00 Gabapentin (Neurontin) 100 mg BID PO Last administered on 02/03/17 09:20; Admin Dose 100 MG; Start 01/20/17 at 21:00 Lisinopril (Zestril) 2.5 mg DAILY PO Last administered on 02/03/17 09:21; Admin Dose 2.5 MG; Start 01/21/17 at 09:00 Insulin Glargine (Lantus) 17 unit DAILY@20 SC Last administered on 02/02/17 20 :32; Admin Dose 17 UNIT; Start 01/20/17 at 20:00 Miscellaneous Information 1 ea NOTE XX ; Start 01/20/17 at 17:30 Glucose (Glutose) 15 gm Q15M PRN PO DECREASED GLUCOSE; Start 01/20/17 at 17:30 Glucose (Glutose) 22.5 gm Q15M PRN PO DECREASED GLUCOSE; Start 01/20/17 at 17:30 Dextrose (D50w Syringe) 25 ml Q15M PRN IV DECREASED GLUCOSE; Start 01/20/17 at 17:30 Dextrose (D50w Syringe) 50 ml Q15M PRN IV DECREASED GLUCOSE; Start 01/20/17 at 17:30 Glucagon (Glucagen) 1 mg Q15M PRN IM DECREASED GLUCOSE; Start 01/20/17 at 17:30 Glucose (Glutose) 15 gm Q15M PRN BUCCAL DECREASED GLUCOSE; Start 01/20/17 at 17: 30 Diagnostic Test (Pha) (Accu-Chek) 1 ea 02 XX Last administered on 02/01/17 01: 17; Admin Dose 1 EA; Start 01/21/17 at 02:00 Zolpidem Tartrate (Ambien) 5 mg HS PRN PO INSOMNIA Last administered on 21:35; Admin Dose 5 MG; Start 01/20/17 at 23:30 Polyethylene Glycol (Miralax) 17 gm DAILY PO Last administered on 01/30/17 08: 48; Admin Dose 17 GM; Start 01/21/17 at 15:00 Docusate Sodium (Colace) 100 mg BID PO Last administered on 02/03/17 09:20; Admin Dose 100 MG; Start 01/21/17 at 15:00 Quetiapine Fumarate (Seroquel) 200 mg QHS PO Last administered on 02/02/17 20: 34; Admin Dose 200 MG; Start 01/21/17 at 21:00 Ondansetron HCl 4 mg 4 mg Q6H PRN IV NAUSEA AND/OR VOMITING Last administered on 01/26/17 20:52; Admin Dose 4 MG; Start 01/24/17 at 23:45 Vancomycin HCl (Vancocin) 250 ml @ 125 mls/hr Q5D IVPB Last administered on 22:11; Admin Dose 125 MLS/HR; Start 01/28/17 at 22:00; Stop 02/04/17 at 06:00 Hydralazine HCl (Apresoline) 10 mg Q6H PRN IV For SBP > 160; Start 01/28/17 at 21:30 Divalproex Sodium (Depakote Er) 750 mg BID PO Last administered on 02/03/17 09 :21; Admin Dose 750 MG; Start 01/30/17 at 12:00 Lactobacillus Acidophilus/ Rhamnosus (Culturelle) 1 cap BID PO Last administered on 02/03/17 09:20; Admin Dose 1 CAP; Start 01/30/17 at 21:00 SOHAIL GRAY NP Feb 03, 2017 12:11
[2017-02-03] MEDS: INSULIN GLARGINE [LANtus] 3 ML PEN SC SCH ×2 (20:00→22:33)
[2017-02-03] MEDS ORDERED: OXYCODONE/ACETAMINOPHEN (5/325) TAB PO ONE ×2 (20:00→21:30)
--- NOTE | 2017-02-03 20:47 | CONS ---
Date/Time of Note Date/Time of Note DATE: 02/03/17 TIME: 19:49 Assessment/Plan Assessment/Plan Chief Complaint/Hosp Course ID PROGRESS NOTE CURRENT ABX: Vancomycin. * Pt is resting comfortably with eyes closed, no fevers, VSS, NAD * Chart reviewed HD patient w/Left chest PermCath == completing IV ABX course for Staph Septicemia * MICROBIOLOGY: Blood culture on admission grew Staph. Urine culture negative. PHYSICAL EXAMINATION: GENERAL: overweight M, VSS, NAD, resting comfortably w/eyes closed HEENT: Unremarkable NECK: Supple. CHEST: Rise symmetrical, without dyspnea on observation . HEART: RRR ABDOMEN: Soft, bowel sounds present. EXTREMITIES: Without cyanosis. ID ASSESSMENT: 1. S/p sepsis with acute encephalopathy, tachycardia, and hypoxemia==> resolving. 2. Staph bacteremia==> r/o line sepsis. 3. Pneumonia==> treated. 4. End-stage renal disease, hemodialysis dependent. 5. Diabetes. 6. Chronic obstructive pulmonary disease. 7. Left chest PermCath. CURRENT ABX: Vancomycin. ID RECOMMENDATIONS Completing Vancomycin IV course -> DC Vanco Sunday 02/04 Anticipate DC OFF ABX when cleared by primary MD . Problems: Consultation Date/Type/Reason Admit Date/Time Jan 20, 2017 at 15:31 Initial Consult Date 01/26/17 Type of Consultation: ID Referring Provider: SCOT DÍAZ Exam/Review of Systems Vital Signs Vitals Vital Signs Date Time Temp Pulse Resp B/P Pulse Ox O2 Delivery O2 Flow Rate FiO2 02/03/17 16:03 90 02/03/17 15:37 98.1 18 147/91 96 01/31/17 15:47 21 01/31/17 08:34 Room Air Intake and Output 02/02/17 02/02/17 02/03/17 15:00 23:00 07:00 Intake Total 300 ml 800 ml 1050 ml Output Total 3300 ml Balance -3000 ml 800 ml 1050 ml Results Result Diagram: 02/02/17 0600 02/02/17 0600 Results 24 hrs Laboratory Tests Test 02/02/17 20:26 02/03/17 09:19 02/03/17 10:23 02/03/17 12:27 Bedside Glucose 118 68 L 75 94 Medications Medications Current Medications Aspirin (Halfprin) 81 mg DAILY PO Last administered on 02/03/17 09:21; Admin Dose 81 MG; Start 01/21/17 at 09:00 Atorvastatin Calcium (Lipitor) 20 mg HS PO Last administered on 02/02/17 20:34 ; Admin Dose 20 MG; Start 01/20/17 at 21:00 Gabapentin (Neurontin) 100 mg BID PO Last administered on 02/03/17 09:20; Admin Dose 100 MG; Start 01/20/17 at 21:00 Lisinopril (Zestril) 2.5 mg DAILY PO Last administered on 02/03/17 09:21; Admin Dose 2.5 MG; Start 01/21/17 at 09:00 Insulin Glargine (Lantus) 17 unit DAILY@20 SC Last administered on 02/02/17 20 :32; Admin Dose 17 UNIT; Start 01/20/17 at 20:00 Miscellaneous Information 1 ea NOTE XX ; Start 01/20/17 at 17:30 Glucose (Glutose) 15 gm Q15M PRN PO DECREASED GLUCOSE; Start 01/20/17 at 17:30 Glucose (Glutose) 22.5 gm Q15M PRN PO DECREASED GLUCOSE; Start 01/20/17 at 17:30 Dextrose (D50w Syringe) 25 ml Q15M PRN IV DECREASED GLUCOSE; Start 01/20/17 at 17:30 Dextrose (D50w Syringe) 50 ml Q15M PRN IV DECREASED GLUCOSE; Start 01/20/17 at 17:30 Glucagon (Glucagen) 1 mg Q15M PRN IM DECREASED GLUCOSE; Start 01/20/17 at 17:30 Glucose (Glutose) 15 gm Q15M PRN BUCCAL DECREASED GLUCOSE; Start 01/20/17 at 17: 30 Diagnostic Test (Pha) (Accu-Chek) 1 ea 02 XX Last administered on 02/01/17 01: 17; Admin Dose 1 EA; Start 01/21/17 at 02:00 Zolpidem Tartrate (Ambien) 5 mg HS PRN PO INSOMNIA Last administered on 21:35; Admin Dose 5 MG; Start 01/20/17 at 23:30 Polyethylene Glycol (Miralax) 17 gm DAILY PO Last administered on 01/30/17 08: 48; Admin Dose 17 GM; Start 01/21/17 at 15:00 Docusate Sodium (Colace) 100 mg BID PO Last administered on 02/03/17 09:20; Admin Dose 100 MG; Start 01/21/17 at 15:00 Quetiapine Fumarate (Seroquel) 200 mg QHS PO Last administered on 02/02/17 20: 34; Admin Dose 200 MG; Start 01/21/17 at 21:00 Ondansetron HCl 4 mg 4 mg Q6H PRN IV NAUSEA AND/OR VOMITING Last administered on 01/26/17 20:52; Admin Dose 4 MG; Start 01/24/17 at 23:45 Vancomycin HCl (Vancocin) 250 ml @ 125 mls/hr Q5D IVPB Last administered on 22:11; Admin Dose 125 MLS/HR; Start 01/28/17 at 22:00; Stop 02/04/17 at 06:00 Hydralazine HCl (Apresoline) 10 mg Q6H PRN IV For SBP > 160; Start 01/28/17 at 21:30 Divalproex Sodium (Depakote Er) 750 mg BID PO Last administered on 02/03/17 09 :21; Admin Dose 750 MG; Start 01/30/17 at 12:00 Lactobacillus Acidophilus/ Rhamnosus (Culturelle) 1 cap BID PO Last administered on 02/03/17 09:20; Admin Dose 1 CAP; Start 01/30/17 at 21:00 NASIR MON NP Feb 03, 2017 19:54
[2017-02-03] MEDS: ATORVASTATIN 20 MG TAB PO SCH (20:49)
[2017-02-03] MEDS: QUETIAPINE 100 MG TAB PO SCH (20:49)
[2017-02-03] MEDS ORDERED: INSULIN GLARGINE [LANtus] 3 ML PEN SC ONE (22:30)
[2017-02-03] MEDS: ZOLPIDEM 5 MG TAB PO PRN (22:46)
[2017-02-03] MEDS ORDERED: INSULIN GLARGINE [LANtus] 3 ML PEN SC SCH (23:00)
[2017-02-04] VITALS (15 sets, daily range): BP systolic 95–168; BP diastolic 57–96; PULSE 83–111; RESP 15–20
[2017-02-04] MEDS: ACCUCHECK AT 2AM (Patients on SS coverage) XX SCH (01:33)
[2017-02-04] MEDS: LEVOTHYROXINE 150 MCG TAB PO SCH (05:46)
[2017-02-04] MEDS: INSULIN ASPART [NOVOLOG] 3 ML PEN SC SCH ×4 (07:55→20:27)
[2017-02-04] MEDS: ASPIRIN (EC) 81 MG TAB PO SCH (08:12)
[2017-02-04] MEDS: DIVALPROEX (ER) 250 MG TAB PO SCH ×2 (08:12→20:28)
[2017-02-04] MEDS: DOCUSATE SODIUM 100 MG CAP PO SCH ×2 (08:12→20:28)
[2017-02-04] MEDS: SEVELAMER 800 MG TAB PO SCH ×3 (08:12→17:43)
[2017-02-04] MEDS: LISINOPRIL 5 MG TAB PO SCH (08:13)
[2017-02-04] MEDS: GABAPENTIN 100 MG CAP PO SCH ×2 (08:13→20:28)
[2017-02-04] MEDS: LACTOBACILLUS RHAMNOSUS CAP PO SCH ×2 (08:13→20:28)
[2017-02-04] MEDS: POLYETHYLENE GLYCOL 17 GM PACKET PO SCH (08:19)
--- NOTE | 2017-02-04 08:59 | CONS ---
Date/Time of Note Date/Time of Note DATE: 02/04/17 TIME: 08:57 Consult Date/Type/Reason Admit Date/Time Jan 20, 2017 at 15:31 Type of Consultation: neph Ordering Provider: SCOT DÍAZ The patient is stable. No acute events overnight. No fevers, chills, nausea or vomiting. The patient on hd today. poc reviewed with dr. tavarez. OBJECTIVE: HEENT: Head is normocephalic. NECK: Supple. HEART: Regular rate. LUNGS: Showed diminished breath sounds at the base. ABDOMEN: Soft, nontender to palpation. No rebound or guarding. EXTREMITIES: Negative for clubbing or cyanosis. No edema. DERMATOLOGIC: No rashes. MUSCULOSKELETAL: Have no joint effusion. NEUROLOGIC: No change in exam. Objective Vital Signs Date Time Temp Pulse Resp B/P Pulse Ox O2 Delivery O2 Flow Rate FiO2 02/04/17 08:16 90 02/04/17 07:17 97.8 15 113/72 97 02/04/17 01:23 21 01/31/17 08:34 Room Air Intake and Output 02/03/17 02/03/17 02/04/17 15:00 23:00 07:00 Intake Total 650 ml Balance 650 ml Results/Medications Result Diagram: 02/02/17 0600 02/02/17 0600 Results 24 hrs Laboratory Tests Test 02/03/17 09:19 02/03/17 10:23 02/03/17 12:27 02/03/17 20:52 Bedside Glucose 68 L 75 94 65 L Test 02/03/17 21:27 02/03/17 21:50 02/04/17 07:59 Bedside Glucose 75 90 104 Medications Current Medications Aspirin (Halfprin) 81 mg DAILY PO Last administered on 02/04/17 08:12; Admin Dose 81 MG; Start 01/21/17 at 09:00 Atorvastatin Calcium (Lipitor) 20 mg HS PO Last administered on 02/03/17 20:49 ; Admin Dose 20 MG; Start 01/20/17 at 21:00 Gabapentin (Neurontin) 100 mg BID PO Last administered on 02/04/17 08:13; Admin Dose 100 MG; Start 01/20/17 at 21:00 Lisinopril (Zestril) 2.5 mg DAILY PO Last administered on 02/04/17 08:13; Admin Dose 2.5 MG; Start 01/21/17 at 09:00 Insulin Glargine (Lantus) 17 unit DAILY@20 SC Last administered on 02/02/17 20 :32; Admin Dose 17 UNIT; Start 01/20/17 at 20:00 Miscellaneous Information 1 ea NOTE XX ; Start 01/20/17 at 17:30 Glucose (Glutose) 15 gm Q15M PRN PO DECREASED GLUCOSE; Start 01/20/17 at 17:30 Glucose (Glutose) 22.5 gm Q15M PRN PO DECREASED GLUCOSE; Start 01/20/17 at 17:30 Dextrose (D50w Syringe) 25 ml Q15M PRN IV DECREASED GLUCOSE; Start 01/20/17 at 17:30 Dextrose (D50w Syringe) 50 ml Q15M PRN IV DECREASED GLUCOSE; Start 01/20/17 at 17:30 Glucagon (Glucagen) 1 mg Q15M PRN IM DECREASED GLUCOSE; Start 01/20/17 at 17:30 Glucose (Glutose) 15 gm Q15M PRN BUCCAL DECREASED GLUCOSE; Start 01/20/17 at 17: 30 Diagnostic Test (Pha) (Accu-Chek) 1 ea 02 XX Last administered on 02/01/17 01: 17; Admin Dose 1 EA; Start 01/21/17 at 02:00 Zolpidem Tartrate (Ambien) 5 mg HS PRN PO INSOMNIA Last administered on 22:46; Admin Dose 5 MG; Start 01/20/17 at 23:30 Polyethylene Glycol (Miralax) 17 gm DAILY PO Last administered on 01/30/17 08: 48; Admin Dose 17 GM; Start 01/21/17 at 15:00 Docusate Sodium (Colace) 100 mg BID PO Last administered on 02/04/17 08:12; Admin Dose 100 MG; Start 01/21/17 at 15:00 Quetiapine Fumarate (Seroquel) 200 mg QHS PO Last administered on 02/03/17 20: 49; Admin Dose 200 MG; Start 01/21/17 at 21:00 Ondansetron HCl (Zofran Inj) 4 mg Q6H PRN IV NAUSEA AND/OR VOMITING Last administered on 01/26/17 20:52; Admin Dose 4 MG; Start 01/24/17 at 23:45 Hydralazine HCl (Apresoline) 10 mg Q6H PRN IV For SBP > 160; Start 01/28/17 at 21:30 Divalproex Sodium (Depakote Er) 750 mg BID PO Last administered on 02/04/17 08 :12; Admin Dose 750 MG; Start 01/30/17 at 12:00 Lactobacillus Acidophilus/ Rhamnosus (Culturelle) 1 cap BID PO Last administered on 02/04/17 08:13; Admin Dose 1 CAP; Start 01/30/17 at 21:00 Assessment/Plan Chief Complaint/Hosp Course ASSESSMENT AND PLAN: 1. End-stage renal disease. Plan for dialysis today for 3 hours, 2K bath, calcium 2.5. Will ultrafiltrate as tolerated. 2. Hyperkalemia. Will dialyze on a 2-potassium bath. 3. Anemia. Continue to monitor hemoglobin and hematocrit levels. Continue Epogen. 4. Mineral bone disorder. Continue phos binders. Continue hemodialysis. Continue low phosphorus diet. 5. Acute encephalopathy. Etiology is toxic metabolic, possible psychosis. Continue to monitor. Follow up with neurology. 6. Seizure disorder. Continue Depakote. 7. Sepsis. Clinically improving. Continue the current antibiotic regimen. 8. Diabetes. Continue Accu-Cheks and insulin sliding scale. 9. Hypothyroidism. Continue Synthroid. 10. Bipolar disorder. Continue the current medical management. 11. Cardiomyopathy. Continue the current treatment plan. Problems: VANESA MONTEJO MD Feb 04, 2017 08:59
[2017-02-04 10:44] LABS: ADD SCAN DIFF NO
[2017-02-04 10:49] LABS: ABNORMAL IP MESSAGE 1; BASOPHILS % 0.7 % (0.0-2.0); EOSINOPHILS # 0.4 10^3/ul (0.0-0.5); EOSINOPHILS % 7.6 % (0.0-7.0); HEMATOCRIT 32.2 % (42.0-52.0); HEMOGLOBIN 9.8 g/dl (14.0-18.0); LYMPHOCYTES % 17.7 % (15.0-51.0); MEAN CORPUSCULAR HEMOGLOBIN 28.6 pg (29.0-33.0); MEAN CORPUSCULAR HGB CONC 30.4 g/dl (32.0-37.0); MEAN CORPUSCULAR VOLUME 93.9 fl (82.0-101.0); MEAN PLATELET VOLUME 13.5 fl (7.4-10.4); MONOCYTE # 0.3 10^3/ul (0.3-0.9); MONOCYTES % 6.3 % (0.0-11.0); NEUTROPHIL # 3.6 10^3/ul (1.6-7.5); NEUTROPHILS % 67.3 % (39.0-77.0); PLATELET COUNT 106 10^3/UL (140-415); RED BLOOD COUNT 3.43 10^6/ul (4.70-6.10); RED CELL DISTRIBUTION WIDTH 16.8 % (11.5-14.5); WHITE BLOOD COUNT 5.4 10^3/ul (4.8-10.8)
[2017-02-04 11:13] LABS: CALCIUM 8.3 mg/dl (8.4-10.2); CREATININE 12.36 mg/dl (0.61-1.24); MAGNESIUM 2.2 mg/dl (1.7-2.5); PHOSPHORUS 7.5 mg/dl (2.5-4.9); POTASSIUM 4.6 mmol/L (3.5-5.1)
--- NOTE | 2017-02-04 15:36 | PN ---
Date/Time of Note Date/Time of Note DATE: 02/04/17 TIME: 15:35 Assessment/Plan VTE Prophylaxis VTE Prophylaxis Intervention: SCD's Lines/Catheters IV [facility]from [facility] [place] [facility] Assessment/Plan Chief Complaint/Hosp Course 1. Acute encephalopathy, most probably toxic metabolic in origin from underlying sepsis versus from central nervous system disorder. The patient's mental status is improving. The patient is still impulsive. The patient has a 1:[address] 2. Right-sided pneumonia with right-sided pleural effusion. Continue antibiotics as per Infectious Disease. 3. Sepsis with underlying gram-positive bacteremia. No evidence of septic shock. Continue antibiotics as per Infectious Disease. 4. Acute respiratory failure. Hypoxic. Most probably secondary to underlying pneumonia. Resolved. 5. End-stage renal disease on hemodialysis. Continue hemodialysis as per nephrology. 6. Cardiomyopathy with ejection fraction of 40% as per 2D echocardiogram done on 04/10/2016. Continue IGLESIA inhibitors. 7. Hypothyroidism. Continue Synthroid. 8. Bipolar disorder. Continue mood stabilizers. 9. Seizure disorder. EEG confirming seizures. Status post evaluation by neurology. Continue Depakote. 10. Dyslipidemia. Continue statins. 11. Type 2 diabetes mellitus. Off oral medications. On sliding scale insulin. Hemoglobin A1c 5.6. 12. Fluid, electrolytes and nutrition. Carbohydrate controlled diet. 13. Deep venous thrombosis prophylaxis. Bilateral lower extremity sequential compression devices. 14. Normocytic hypochromic anemia. Iron panel shows iron deficiency. Will continue the patient on iron supplements. 15. Plan. The patient ideally needs a fci facility because of impulsive behavior and frequent falls. Patient refusing to go to a fci facility. Status post evaluation by physical therapy. The patient asking to talk to the neurologist. Will have neurologist reevaluate the patient. Talked to the patients friend/spokes person Neo Barriga on 2016. Informed him about the findings in EEG. The patient wants to talk to the neurologist who started him on Depakote. Unfortunately that neurologist is not speech correction consultant this weekend. Therefore, the covering neurologist has been notified. Case discussed with Dr. Jamil. Problems: Subjective 24 Hr Interval Summary Free Text/Dictation No changes in status. Exam/Review of Systems Vital Signs Vitals Vital Signs Date Time Temp Pulse Resp B/P Pulse Ox O2 Delivery O2 Flow Rate FiO2 02/04/17 12:16 98.3 85 19 149/96 99 Room Air 02/04/17 01:23 21 Intake and Output 02/03/17 02/03/17 02/04/17 15:00 23:00 07:00 Intake Total 650 ml Balance 650 ml Exam GENERAL: This is a slightly overweight -[place] male lying in bed in no apparent distress. HEENT: Head normocephalic and atraumatic. Eyes: Anicteric sclerae. Conjunctivae clear. ENT: Nasal septum is midline. Oral mucosa is dry. NECK: Supple. No JVD noticed. RESPIRATORY: Bilateral diminished breath sounds. No adventitious breath sounds heard. No use of accessory muscles of respiration. CARDIAC: Regular rate and rhythm. S1 and S2 heard. ABDOMEN: Soft, nontender and nondistended. Bowel sounds positive in all 4 quadrants. GENITOURINARY: Deferred. EXTREMITIES: No cyanosis, no clubbing, no edema. Peripheral pulses are palpable. NEUROLOGIC: The patient is awake and alert. Moves all 4 extremities. Oriented x3. Results Result Diagram: 02/04/17 0938 02/04/17 0938 Results 24 hrs Laboratory Tests Test 02/03/17 20:52 02/03/17 21:27 02/03/17 21:50 02/04/17 07:59 Bedside Glucose 65 L 75 90 104 Test 02/04/17 09:38 02/04/17 12:14 White Blood Count 5.4 Red Blood Count 3.43 L Hemoglobin 9.8 L Hematocrit 32.2 L Mean Corpuscular Volume 93.9 Mean Corpuscular Hemoglobin 28.6 L Mean Corpuscular Hemoglobin Concent 30.4 L Red Cell Distribution Width 16.8 H Platelet Count 106 L Mean Platelet Volume 13.5 H Neutrophils % 67.3 Lymphocytes % 17.7 Monocytes % 6.3 Eosinophils % 7.6 H Basophils % 0.7 Nucleated Red Blood Cells % 0.0 Neutrophils # 3.6 Lymphocytes # 1.0 Monocytes # 0.3 Eosinophils # 0.4 Basophils # 0.0 Nucleated Red Blood Cells # 0.0 Sodium Level 132 L Potassium Level 4.6 Chloride Level 97 Carbon Dioxide Level 21 Anion Gap 19 H Blood Urea Nitrogen 57 H Creatinine 12.36 H Glucose Level 95 Calcium Level 8.3 L Phosphorus Level 7.5 H Magnesium Level 2.2 Valproic Acid (Depakene) Level 70 Bedside Glucose 85 Medications Medications Current Medications Aspirin (Halfprin) 81 mg DAILY PO Last administered on 02/04/17 08:12; Admin Dose 81 MG; Start 01/21/17 at 09:00 Atorvastatin Calcium (Lipitor) 20 mg HS PO Last administered on 02/03/17 20:49 ; Admin Dose 20 MG; Start 01/20/17 at 21:00 Gabapentin (Neurontin) 100 mg BID PO Last administered on 02/04/17 08:13; Admin Dose 100 MG; Start 01/20/17 at 21:00 Lisinopril (Zestril) 2.5 mg DAILY PO Last administered on 02/04/17 08:13; Admin Dose 2.5 MG; Start 01/21/17 at 09:00 Insulin Glargine (Lantus) 17 unit DAILY@20 SC Last administered on 02/02/17 20 :32; Admin Dose 17 UNIT; Start 01/20/17 at 20:00 Miscellaneous Information 1 ea NOTE XX ; Start 01/20/17 at 17:30 Glucose (Glutose) 15 gm Q15M PRN PO DECREASED GLUCOSE; Start 01/20/17 at 17:30 Glucose (Glutose) 22.5 gm Q15M PRN PO DECREASED GLUCOSE; Start 01/20/17 at 17:30 Dextrose (D50w Syringe) 25 ml Q15M PRN IV DECREASED GLUCOSE; Start 01/20/17 at 17:30 Dextrose (D50w Syringe) 50 ml Q15M PRN IV DECREASED GLUCOSE; Start 01/20/17 at 17:30 Glucagon (Glucagen) 1 mg Q15M PRN IM DECREASED GLUCOSE; Start 01/20/17 at 17:30 Glucose (Glutose) 15 gm Q15M PRN BUCCAL DECREASED GLUCOSE; Start 01/20/17 at 17: 30 Diagnostic Test (Pha) (Accu-Chek) 1 ea 02 XX Last administered on 02/01/17 01: 17; Admin Dose 1 EA; Start 01/21/17 at 02:00 Zolpidem Tartrate (Ambien) 5 mg HS PRN PO INSOMNIA Last administered on 22:46; Admin Dose 5 MG; Start 01/20/17 at 23:30 Polyethylene Glycol (Miralax) 17 gm DAILY PO Last administered on 01/30/17 08: 48; Admin Dose 17 GM; Start 01/21/17 at 15:00 Docusate Sodium (Colace) 100 mg BID PO Last administered on 02/04/17 08:12; Admin Dose 100 MG; Start 01/21/17 at 15:00 Quetiapine Fumarate (Seroquel) 200 mg QHS PO Last administered on 02/03/17 20: 49; Admin Dose 200 MG; Start 01/21/17 at 21:00 Ondansetron HCl (Zofran Inj) 4 mg Q6H PRN IV NAUSEA AND/OR VOMITING Last administered on 01/26/17 20:52; Admin Dose 4 MG; Start 01/24/17 at 23:45 Hydralazine HCl (Apresoline) 10 mg Q6H PRN IV For SBP > 160; Start 01/28/17 at 21:30 Divalproex Sodium (Depakote Er) 750 mg BID PO Last administered on 02/04/17 08 :12; Admin Dose 750 MG; Start 01/30/17 at 12:00 Lactobacillus Acidophilus/ Rhamnosus (Culturelle) 1 cap BID PO Last administered on 02/04/17 08:13; Admin Dose 1 CAP; Start 01/30/17 at 21:00 SOHAIL GRAY NP Feb 04, 2017 15:36
[2017-02-04] MEDS ORDERED: ACETAMINOPHEN 325 MG TAB PO PRN (17:00)
--- NOTE | 2017-02-04 17:28 | CONS ---
Date/Time of Note Date/Time of Note DATE: 02/04/17 TIME: 17:27 Assessment/Plan Assessment/Plan Chief Complaint/Hosp Course SUBJECTIVE: No acute changes, looks comfortable INDWELLINGS: Left chest PermCath. MICROBIOLOGY: Blood culture on admission grew Staph. Urine culture negative. ANTIMICROBIALS: Vancomycin. PHYSICAL EXAMINATION: GENERAL: This is an obese, well-developed, middle-aged man who is in no distress. HEENT: Head atraumatic, normocephalic. Sclerae anicteric. Buccal mucosa pink. NECK: Supple. CHEST: Rise symmetrical. Breath sounds diminished to bases. HEART: S1, S2. ABDOMEN: Soft, bowel sounds present. EXTREMITIES: Without cyanosis. ASSESSMENT: 1. S/p sepsis with acute encephalopathy, tachycardia, and hypoxemia==> resolving. 2. Staph bacteremia==> r/o line sepsis. 3. Pneumonia==> treated. 4. End-stage renal disease, hemodialysis dependent. 5. Diabetes. 6. Chronic obstructive pulmonary disease. 7. Left chest PermCath. PLAN: The patient remains stable. Hussein Holt continue present care/aspiration precautions DW staff Problems: Consultation Date/Type/Reason Admit Date/Time Jan 20, 2017 at 15:31 Type of Consultation: ID Referring Provider: SCOT DÍAZ Exam/Review of Systems Vital Signs Vitals Vital Signs Date Time Temp Pulse Resp B/P Pulse Ox O2 Delivery O2 Flow Rate FiO2 02/04/17 16:31 98.6 92 168/85 98 Room Air 02/04/17 12:16 19 02/04/17 01:23 21 Intake and Output 02/03/17 02/03/17 02/04/17 15:00 23:00 07:00 Intake Total 650 ml Balance 650 ml Results Result Diagram: 02/04/17 0938 02/04/17 0938 Results 24 hrs Laboratory Tests Test 02/03/17 20:52 02/03/17 21:27 02/03/17 21:50 02/04/17 07:59 Bedside Glucose 65 L 75 90 104 Test 02/04/17 09:38 02/04/17 12:14 02/04/17 17:06 White Blood Count 5.4 Red Blood Count 3.43 L Hemoglobin 9.8 L Hematocrit 32.2 L Mean Corpuscular Volume 93.9 Mean Corpuscular Hemoglobin 28.6 L Mean Corpuscular Hemoglobin Concent 30.4 L Red Cell Distribution Width 16.8 H Platelet Count 106 L Mean Platelet Volume 13.5 H Neutrophils % 67.3 Lymphocytes % 17.7 Monocytes % 6.3 Eosinophils % 7.6 H Basophils % 0.7 Nucleated Red Blood Cells % 0.0 Neutrophils # 3.6 Lymphocytes # 1.0 Monocytes # 0.3 Eosinophils # 0.4 Basophils # 0.0 Nucleated Red Blood Cells # 0.0 Sodium Level 132 L Potassium Level 4.6 Chloride Level 97 Carbon Dioxide Level 21 Anion Gap 19 H Blood Urea Nitrogen 57 H Creatinine 12.36 H Glucose Level 95 Calcium Level 8.3 L Phosphorus Level 7.5 H Magnesium Level 2.2 Valproic Acid (Depakene) Level 70 Bedside Glucose 85 101 Medications Medications Current Medications Aspirin (Halfprin) 81 mg DAILY PO Last administered on 02/04/17 08:12; Admin Dose 81 MG; Start 01/21/17 at 09:00 Atorvastatin Calcium (Lipitor) 20 mg HS PO Last administered on 02/03/17 20:49 ; Admin Dose 20 MG; Start 01/20/17 at 21:00 Gabapentin (Neurontin) 100 mg BID PO Last administered on 02/04/17 08:13; Admin Dose 100 MG; Start 01/20/17 at 21:00 Lisinopril (Zestril) 2.5 mg DAILY PO Last administered on 02/04/17 08:13; Admin Dose 2.5 MG; Start 01/21/17 at 09:00 Insulin Glargine (Lantus) 17 unit DAILY@20 SC Last administered on 02/02/17 20 :32; Admin Dose 17 UNIT; Start 01/20/17 at 20:00 Miscellaneous Information 1 ea NOTE XX ; Start 01/20/17 at 17:30 Glucose (Glutose) 15 gm Q15M PRN PO DECREASED GLUCOSE; Start 01/20/17 at 17:30 Glucose (Glutose) 22.5 gm Q15M PRN PO DECREASED GLUCOSE; Start 01/20/17 at 17:30 Dextrose (D50w Syringe) 25 ml Q15M PRN IV DECREASED GLUCOSE; Start 01/20/17 at 17:30 Dextrose (D50w Syringe) 50 ml Q15M PRN IV DECREASED GLUCOSE; Start 01/20/17 at 17:30 Glucagon (Glucagen) 1 mg Q15M PRN IM DECREASED GLUCOSE; Start 01/20/17 at 17:30 Glucose (Glutose) 15 gm Q15M PRN BUCCAL DECREASED GLUCOSE; Start 01/20/17 at 17: 30 Diagnostic Test (Pha) (Accu-Chek) 1 ea 02 XX Last administered on 02/01/17 01: 17; Admin Dose 1 EA; Start 01/21/17 at 02:00 Zolpidem Tartrate (Ambien) 5 mg HS PRN PO INSOMNIA Last administered on 22:46; Admin Dose 5 MG; Start 01/20/17 at 23:30 Polyethylene Glycol (Miralax) 17 gm DAILY PO Last administered on 01/30/17 08: 48; Admin Dose 17 GM; Start 01/21/17 at 15:00 Docusate Sodium (Colace) 100 mg BID PO Last administered on 02/04/17 08:12; Admin Dose 100 MG; Start 01/21/17 at 15:00 Quetiapine Fumarate (Seroquel) 200 mg QHS PO Last administered on 02/03/17 20: 49; Admin Dose 200 MG; Start 01/21/17 at 21:00 Ondansetron HCl (Zofran Inj) 4 mg Q6H PRN IV NAUSEA AND/OR VOMITING Last administered on 01/26/17 20:52; Admin Dose 4 MG; Start 01/24/17 at 23:45 Hydralazine HCl (Apresoline) 10 mg Q6H PRN IV For SBP > 160; Start 01/28/17 at 21:30 Divalproex Sodium (Depakote Er) 750 mg BID PO Last administered on 02/04/17 08 :12; Admin Dose 750 MG; Start 01/30/17 at 12:00 Lactobacillus Acidophilus/ Rhamnosus (Culturelle) 1 cap BID PO Last administered on 02/04/17 08:13; Admin Dose 1 CAP; Start 01/30/17 at 21:00 Acetaminophen (Tylenol Tab) 650 mg Q6H PRN PO PAIN AND OR ELEVATED TEMP; Start 02/04/17 at 17:00 Tramadol HCl (Ultram) 50 mg ONCE ONCE PO ; Start 02/04/17 at 17:30; Stop at 17:31 AUBRIE MORGAN NP Feb 04, 2017 17:28
[2017-02-04] MEDS ORDERED: traMADol 50 MG TAB PO ONE (17:30)
[2017-02-04] MEDS: ATORVASTATIN 20 MG TAB PO SCH (20:28)
[2017-02-04] MEDS: QUETIAPINE 100 MG TAB PO SCH (20:28)
[2017-02-04] MEDS: INSULIN GLARGINE [LANtus] 3 ML PEN SC SCH (20:40)
[2017-02-04] MEDS: ZOLPIDEM 5 MG TAB PO PRN (21:50)
[2017-02-05] VITALS (11 sets, daily range): BP systolic 105–172; BP diastolic 66–95; PULSE 88–108; RESP 16–20
[2017-02-05] MEDS: ACCUCHECK AT 2AM (Patients on SS coverage) XX SCH (01:55)
[2017-02-05] MEDS: LEVOTHYROXINE 150 MCG TAB PO SCH (06:09)
--- NOTE | 2017-02-05 07:57 | PN ---
DATE: 02/04/2017 The patient is 56 years old, status post acute encephalopathy, probably ____ toxic metabolic with in fection, right-sided pneumonia, sepsis, acute respiratory failure, end-stage renal disease, cardiomy opathy, hypothyroidism, bipolar disorder, seizure, patient on Depakote, dyslipidemia, diabetes, anem ia. The patient undergoing dialysis. The patient has no complaint of new onset of any new seizure activity. He is on Depakote. PHYSICAL EXAMINATION: GENERAL: On exam today, the patient is alert, awake. NEUROLOGIC: Cranial nerves X-XII intact. Motor exam: Moving both upper and lower extremities. HEART: Regular rate and rhythm. LUNGS: Equal breath sounds. ABDOMEN: Soft, flat, nondistended, nontender. ASSESSMENT AND PLAN: This is a patient with: 1. History of seizure disorder. Give the patient Depakote and follow up the patient with seizure p recautions and EEG. 2. Status post end-stage renal disease. The patient on dialysis. 3. History of hyperkalemia in which the patient has dialysis for that. 4. Acute encephalopathy, probably secondary to toxic metabolic, and follow up the patient with EEG. 5. History of diabetes. Follow up the patient with sliding scale as well as Accu-Cheks. 6. Hyperthyroidism. Keep the patient on ____. 7. Bipolar disorder with the patient on ____. Follow up with psychiatric evaluation. 8. Status post sepsis versus pneumonia in which the patient was on antibiotic ____ which was discon tinued by Infectious Disease. Again, thank you for asking me to see the patient with you. Dictated By: EPHRAIM OQUENDO/LEAH Conf#: [id number] DID#: [id number]
[2017-02-05] MEDS: DOCUSATE SODIUM 100 MG CAP PO SCH ×2 (08:12→20:26)
[2017-02-05] MEDS: ASPIRIN (EC) 81 MG TAB PO SCH (08:12)
[2017-02-05] MEDS: POLYETHYLENE GLYCOL 17 GM PACKET PO SCH (08:12)
[2017-02-05] MEDS: SEVELAMER 800 MG TAB PO SCH ×3 (08:12→17:34)
[2017-02-05] MEDS: LACTOBACILLUS RHAMNOSUS CAP PO SCH ×2 (08:12→20:26)
[2017-02-05] MEDS: GABAPENTIN 100 MG CAP PO SCH ×2 (08:12→20:26)
[2017-02-05] MEDS: DIVALPROEX (ER) 250 MG TAB PO SCH (08:13)
[2017-02-05] MEDS: LISINOPRIL 5 MG TAB PO SCH (08:13)
--- NOTE | 2017-02-05 08:16 | CONS ---
DATE OF ADMISSION: 01/20/2017 DATE OF CONSULTATION: HISTORY OF PRESENT ILLNESS: The patient is a 56-year-old with multiple medical problems in the form of acute encephalopathy, status post underlying sepsis. The patient with agitation with nervousnes s. The patient with end-stage renal disease on hemodialysis, acute respiratory failure, sepsis, pne umonia, seizure, on Depakote 750 mg twice a day, dyslipidemia, diabetes type 2, for which I got a ca ll about him today. The patient had abnormal EEG for which he needed to know about the results. I explained to the patient that Depakote is a good medication at this time and we would follow up the patient with EEG in one month, probably in the clinic. MEDICATIONS: The patient, right now, his medications include ____ 2400 mg, vancomycin dosing per e pharmacy, Depakote 750 mg twice a day, hydralazine 10 mg every 6 hours as needed for ____ blood pr essure 160 or above, Zofran 4 mg every 6 hours as needed, Seroquel 200 mg at night, MiraLax 17 grams once a day, Colace 100 mg twice a day, aspiring 81 mg once a day, Zestril 2.5 mg, ____ 150 mcg once a day, Lipitor 20 mg once a day, Ambien 5 mg at night as needed. PHYSICAL EXAMINATION: GENERAL: On examination today, the patient is alert, awake, oriented, following simple commands. H e has word finding difficulty with lack of output and registration. HEART: Regular rate and rhythm. LUNGS: Equal breath sounds. ABDOMEN: Soft, relaxed, nondistended, no tenderness. CRANIAL NERVE EXAMINATION: Cranial nerves II: Pupils equal on both sides, reactive to light. Cran ial nerves III, IV, and : Extraocular muscles intact. No nystagmus. Cranial nerves V: Equal se nsation to face. Cranial nerve VII: Symmetrical face. Cranial nerve VIII: Decreased hearing bila terally. Cranial nerves IX and X: Elevates palate. Cranial nerves XI: Elevates shoulders, 5/5. Cranial nerve XII: Straight tongue. MOTOR: Decreased right hand barley steeper, 4+/5. Sensation decreased for gloves and sock area for light mak ch and temperature. Coordination: [id number] test intact. ASSESSMENT AND PLAN: The patient is a 56-year-old with 1. Underlying acute encephalopathy. 2. Status post pneumonia. 3. Status post sepsis on IV antibiotic. 4. History of end-stage renal disease for which the patient is on dialysis. 5. History of diabetes for which the patient is getting insulin and Accu-Chek. 6. Dyslipidemia for which the patient is on statin. 7. Underlying possible Alzheimer disease. Follow up the patient's mini mental status exam and ____ . EEG as an outpatient with the possibility of neuropsychological testing. Again, thank you for asking me to see the patient with you. Dictated By: EPHRAIM OQUENDO/NTS Conf#: [id number] DID#: [id number]
[2017-02-05] MEDS: INSULIN ASPART [NOVOLOG] 3 ML PEN SC SCH ×4 (08:22→20:21)
--- NOTE | 2017-02-05 10:32 | PN ---
Date/Time of Note Date/Time of Note DATE: 02/05/17 TIME: 10:28 Assessment/Plan VTE Prophylaxis VTE Prophylaxis Intervention: SCD's Lines/Catheters IV [facility]ter Type (from [facility]): Peripheral IV Urinary Cath still in place: No Assessment/Plan Chief Complaint/Hosp Course 1. Acute encephalopathy, most probably toxic metabolic in origin from underlying sepsis versus from central nervous system disorder. The patient's mental status is improving. The patient is still impulsive. 2. Right-sided pneumonia with right-sided pleural effusion. Continue antibiotics as per Infectious Disease. 3. Sepsis with underlying gram-positive bacteremia. No evidence of septic shock. Continue antibiotics as per Infectious Disease. 4. Acute respiratory failure. Hypoxic. Most probably secondary to underlying pneumonia. Resolved. 5. End-stage renal disease on hemodialysis. Continue hemodialysis as per nephrology. 6. Cardiomyopathy with ejection fraction of 40% as per 2D echocardiogram done on 04/10/2016. Continue IGLESIA inhibitors. 7. Hypothyroidism. Continue Synthroid. 8. Bipolar disorder. Continue mood stabilizers. 9. Seizure disorder. EEG confirming seizures. Status post evaluation by neurology. Continue Depakote. 10. Dyslipidemia. Continue statins. 11. Type 2 diabetes mellitus. Off oral medications. On sliding scale insulin. Hemoglobin A1c 5.6. 12. Dysfunctional PermCath. Plans for replacement today. 13. Fluid, electrolytes and nutrition. Carbohydrate controlled diet. 14. Deep venous thrombosis prophylaxis. Bilateral lower extremity sequential compression devices. 15. Normocytic hypochromic anemia. Iron panel shows iron deficiency. Will continue the patient on iron supplements. 16. Plan. The patient ideally needs a prison facility because of impulsive behavior and frequent falls. Patient refusing to go to a prison facility. Status post evaluation by physical therapy. The patient asking to talk to the neurologist. Will have neurologist reevaluate the patient. Talked to the patients friend/spokes person Neo Barriga on 2016. Informed him about the findings in EEG. Await for neurologist to reevaluate the patient. Await for pPermCath placement. Case discussed with Dr. Wood. Problems: Subjective 24 Hr Interval Summary Free Text/Dictation Patient scheduled for PermCath placement today. Exam/Review of Systems Vital Signs Vitals Vital Signs Date Time Temp Pulse Resp B/P Pulse Ox O2 Delivery O2 Flow Rate FiO2 02/05/17 08:16 97 02/05/17 08:10 98.2 18 105/67 93 02/04/17 20:30 Room Air 02/04/17 01:23 21 Intake and Output 02/04/17 02/04/17 02/05/17 15:00 23:00 07:00 Intake Total 400 ml 1200 ml 650 ml Output Total 700 ml Balance -300 ml 1200 ml 650 ml Exam GENERAL: This is a slightly overweight -Mexican male lying in bed in no apparent distress. HEENT: Head normocephalic and atraumatic. Eyes: Anicteric sclerae. Conjunctivae clear. ENT: Nasal septum is midline. Oral mucosa is dry. NECK: Supple. No JVD noticed. RESPIRATORY: Bilateral diminished breath sounds. No adventitious breath sounds heard. No use of accessory muscles of respiration. CARDIAC: Regular rate and rhythm. S1 and S2 heard. ABDOMEN: Soft, nontender and nondistended. Bowel sounds positive in all 4 quadrants. GENITOURINARY: Deferred. EXTREMITIES: No cyanosis, no clubbing, no edema. Peripheral pulses are palpable. NEUROLOGIC: The patient is awake and alert. Moves all 4 extremities. Oriented x3. Results Result Diagram: 02/04/17 0938 02/04/17 0938 Results 24 hrs Laboratory Tests Test 02/04/17 12:14 02/04/17 17:06 02/04/17 20:25 02/05/17 08:05 Bedside Glucose 85 101 107 294 H Medications Medications Current Medications Aspirin (Halfprin) 81 mg DAILY PO Last administered on 02/05/17 08:12; Admin Dose 81 MG; Start 01/21/17 at 09:00 Atorvastatin Calcium (Lipitor) 20 mg HS PO Last administered on 02/04/17 20:28 ; Admin Dose 20 MG; Start 01/20/17 at 21:00 Gabapentin (Neurontin) 100 mg BID PO Last administered on 02/05/17 08:12; Admin Dose 100 MG; Start 01/20/17 at 21:00 Lisinopril (Zestril) 2.5 mg DAILY PO Last administered on 02/04/17 08:13; Admin Dose 2.5 MG; Start 01/21/17 at 09:00 Insulin Glargine (Lantus) 17 unit DAILY@20 SC Last administered on 02/04/17 20 :40; Admin Dose 17 UNIT; Start 01/20/17 at 20:00 Miscellaneous Information 1 ea NOTE XX ; Start 01/20/17 at 17:30 Glucose (Glutose) 15 gm Q15M PRN PO DECREASED GLUCOSE; Start 01/20/17 at 17:30 Glucose (Glutose) 22.5 gm Q15M PRN PO DECREASED GLUCOSE; Start 01/20/17 at 17:30 Dextrose (D50w Syringe) 25 ml Q15M PRN IV DECREASED GLUCOSE; Start 01/20/17 at 17:30 Dextrose (D50w Syringe) 50 ml Q15M PRN IV DECREASED GLUCOSE; Start 01/20/17 at 17:30 Glucagon (Glucagen) 1 mg Q15M PRN IM DECREASED GLUCOSE; Start 01/20/17 at 17:30 Glucose (Glutose) 15 gm Q15M PRN BUCCAL DECREASED GLUCOSE; Start 01/20/17 at 17: 30 Diagnostic Test (Pha) (Accu-Chek) 1 ea 02 XX Last administered on 02/01/17 01: 17; Admin Dose 1 EA; Start 01/21/17 at 02:00 Zolpidem Tartrate (Ambien) 5 mg HS PRN PO INSOMNIA Last administered on 21:50; Admin Dose 5 MG; Start 01/20/17 at 23:30 Polyethylene Glycol (Miralax) 17 gm DAILY PO Last administered on 02/05/17 08: 12; Admin Dose 17 GM; Start 01/21/17 at 15:00 Docusate Sodium (Colace) 100 mg BID PO Last administered on 02/05/17 08:12; Admin Dose 100 MG; Start 01/21/17 at 15:00 Quetiapine Fumarate (Seroquel) 200 mg QHS PO Last administered on 02/04/17 20: 28; Admin Dose 200 MG; Start 01/21/17 at 21:00 Ondansetron HCl (Zofran Inj) 4 mg Q6H PRN IV NAUSEA AND/OR VOMITING Last administered on 01/26/17 20:52; Admin Dose 4 MG; Start 01/24/17 at 23:45 Hydralazine HCl (Apresoline) 10 mg Q6H PRN IV For SBP > 160; Start 01/28/17 at 21:30 Divalproex Sodium (Depakote Er) 750 mg BID PO Last administered on 02/05/17 08 :13; Admin Dose 750 MG; Start 01/30/17 at 12:00 Lactobacillus Acidophilus/ Rhamnosus (Culturelle) 1 cap BID PO Last administered on 02/05/17 08:12; Admin Dose 1 CAP; Start 01/30/17 at 21:00 Acetaminophen (Tylenol Tab) 650 mg Q6H PRN PO PAIN AND OR ELEVATED TEMP; Start 02/04/17 at 17:00 SOHAIL GRAY NP Feb 05, 2017 10:32
--- NOTE | 2017-02-05 12:26 | CONS ---
Date/Time of Note Date/Time of Note DATE: 02/05/17 TIME: 12:20 Consult Date/Type/Reason Admit Date/Time Jan 20, 2017 at 15:31 Initial Consult Date 01/26/17 Type of Consultation: Neurology Reason for Consultation follow up request for seizure management Ordering Provider: SCOT DÍAZ Subjective over the weekend agitated requiring 1:1 sitter today he complains of difficulty with speech, feels tremulous and is unable to grasp objects well tremors for the past 2 days, complains of pain throughout VPA level checked 02/04: 70 wnl Objective Vital Signs Date Time Temp Pulse Resp B/P Pulse Ox O2 Delivery O2 Flow Rate FiO2 02/05/17 11:08 98.8 97 17 128/81 97 02/04/17 20:30 Room Air 02/04/17 01:23 21 Intake and Output 02/04/17 02/04/17 02/05/17 15:00 23:00 07:00 Intake Total 400 ml 1200 ml 650 ml Output Total 700 ml Balance -300 ml 1200 ml 650 ml Exam awake and alert appears stated age oriented x 3 mood easily irritable CN: MARIA DEL ROSARIO, blinks to threat EOMI no nystagmus no significant facial asymmetry has some tardive dyskinesia orofacial twitching Motor: tremors + asterixis unable to perform FTN jerking movement on right when attempting Reflexes symmetric throughout Results/Medications Result Diagram: 02/04/1738 02/04/17 0938 Results 24 hrs Laboratory Tests Test 02/04/17 17:06 02/04/17 20:25 02/05/17 08:05 02/05/17 11:56 Bedside Glucose 101 107 294 H 93 Medications Current Medications Aspirin (Halfprin) 81 mg DAILY PO Last administered on 02/05/17 08:12; Admin Dose 81 MG; Start 01/21/17 at 09:00 Atorvastatin Calcium (Lipitor) 20 mg HS PO Last administered on 02/04/17 20:28 ; Admin Dose 20 MG; Start 01/20/17 at 21:00 Gabapentin (Neurontin) 100 mg BID PO Last administered on 02/05/17 08:12; Admin Dose 100 MG; Start 01/20/17 at 21:00 Lisinopril (Zestril) 2.5 mg DAILY PO Last administered on 02/04/17 08:13; Admin Dose 2.5 MG; Start 01/21/17 at 09:00 Insulin Glargine (Lantus) 17 unit DAILY@20 SC Last administered on 02/04/17 20 :40; Admin Dose 17 UNIT; Start 01/20/17 at 20:00 Miscellaneous Information 1 ea NOTE XX ; Start 01/20/17 at 17:30 Glucose (Glutose) 15 gm Q15M PRN PO DECREASED GLUCOSE; Start 01/20/17 at 17:30 Glucose (Glutose) 22.5 gm Q15M PRN PO DECREASED GLUCOSE; Start 01/20/17 at 17:30 Dextrose (D50w Syringe) 25 ml Q15M PRN IV DECREASED GLUCOSE; Start 01/20/17 at 17:30 Dextrose (D50w Syringe) 50 ml Q15M PRN IV DECREASED GLUCOSE; Start 01/20/17 at 17:30 Glucagon (Glucagen) 1 mg Q15M PRN IM DECREASED GLUCOSE; Start 01/20/17 at 17:30 Glucose (Glutose) 15 gm Q15M PRN BUCCAL DECREASED GLUCOSE; Start 01/20/17 at 17: 30 Diagnostic Test (Pha) (Accu-Chek) 1 ea 02 XX Last administered on 02/01/17 01: 17; Admin Dose 1 EA; Start 01/21/17 at 02:00 Zolpidem Tartrate (Ambien) 5 mg HS PRN PO INSOMNIA Last administered on 21:50; Admin Dose 5 MG; Start 01/20/17 at 23:30 Polyethylene Glycol (Miralax) 17 gm DAILY PO Last administered on 02/05/17 08: 12; Admin Dose 17 GM; Start 01/21/17 at 15:00 Docusate Sodium (Colace) 100 mg BID PO Last administered on 02/05/17 08:12; Admin Dose 100 MG; Start 01/21/17 at 15:00 Quetiapine Fumarate (Seroquel) 200 mg QHS PO Last administered on 02/04/17 20: 28; Admin Dose 200 MG; Start 01/21/17 at 21:00 Ondansetron HCl (Zofran Inj) 4 mg Q6H PRN IV NAUSEA AND/OR VOMITING Last administered on 01/26/17 20:52; Admin Dose 4 MG; Start 01/24/17 at 23:45 Hydralazine HCl (Apresoline) 10 mg Q6H PRN IV For SBP > 160; Start 01/28/17 at 21:30 Lactobacillus Acidophilus/ Rhamnosus (Culturelle) 1 cap BID PO Last administered on 02/05/17t 08:12; Admin Dose 1 CAP; Start 01/30/17 at 21:00 Acetaminophen (Tylenol Tab) 650 mg Q6H PRN PO PAIN AND OR ELEVATED TEMP; Start 02/04/17 at 17:00 Lacosamide (Vimpat Liq) 100 mg BID PO ; Start 02/05/17 at 12:30; Status UNV Assessment/Plan Chief Complaint/Hosp Course 56 yo male ESRD, DM, hypothyroidism, ischemic CM admitted with pneumonia and encephalopathy with active metabolic issues. EEG: generalized bihemispheric background slowing with left central parietal epileptiform activity, which is consistent with encephalopathy with epileptiform activity. Depakote 750 mg ER was initiated last week, level was therapeutic however patient feels increasing jerking movements. Tremors are a potential side effect of Depakote and being on other antipsychotics may also worsen these movements. I discussed with him the possibility of switching to another AED which will require titration. He agrees to change to another medication. Recommendations: discontinue any medications that may lower seizures threshold ativan low dose prn for further seizures started Vimpat 100 mg BID, only liquid form is available at this time, may use oral form when patient is discharged increase dose to 150 mg BID in one week from today continue frequent neuro checks may obtain a repeat EEG as outpatient in 1 month as planned to adjust medications as needed will follow up again tomorrow to reevaluate psychiatry evaluation suggested as well to adjust anti-psychotics Problems: MONY GRIFFIN MD Feb 05, 2017 12:26
[2017-02-05] MEDS: LACOSAMIDE (100 MG/10 ML PO SYR) PO SCH ×2 (12:30→21:49)
[2017-02-05] MEDS ORDERED: LACOSAMIDE (100 MG/10 ML PO SYR) PO SCH (13:10)
[2017-02-05] MEDS: ATORVASTATIN 20 MG TAB PO SCH (20:26)
[2017-02-05] MEDS: QUETIAPINE 100 MG TAB PO SCH (20:27)
[2017-02-05] MEDS: INSULIN GLARGINE [LANtus] 3 ML PEN SC SCH (20:34)
[2017-02-06] VITALS (30 sets, daily range): BP systolic 112–185; BP diastolic 71–103; PULSE 85–121; RESP 17–20
[2017-02-06] MEDS: ACCUCHECK AT 2AM (Patients on SS coverage) XX SCH (02:00)
[2017-02-06] MEDS: LEVOTHYROXINE 150 MCG TAB PO SCH (06:49)
[2017-02-06 07:36] LABS: ADD SCAN DIFF NO
--- NOTE | 2017-02-06 07:42 | PN ---
DATE: 02/05/2017 SUBJECTIVE: The patient is stable. No events overnight. No fevers, chills, nausea, vomiting. OBJECTIVE: VITAL SIGNS: Blood pressure is 105/67, respirations 18, pulse 95, temperature 98.2. HEENT: Head is normocephalic. NECK: Supple. HEART: Regular rate. LUNGS: Show diminished breath sounds at base. ABDOMEN: Soft, nontender to palpation without rebound or guarding. EXTREMITIES: Negative for clubbing, cyanosis, edema. DERMATOLOGIC: No rashes. MUSCULOSKELETAL: No joint effusions. NEUROLOGIC: No change in exam. MEDICATIONS: Have been reviewed. LABORATORY DATA: Has been reviewed. No new labs. ASSESSMENT AND PLAN: 1. End-stage renal disease. Plan for dialysis today for 3 hours, 3K bath, calcium 2.5, ultrafiltra te as tolerated. 2. Hypokalemia, improved. Continue dialysis with 2 potassium bath. 3. Anemia. Continue to monitor hemoglobin and hematocrit levels. Continue Epogen. 4. Mineral bone disorder. Continue to monitor calcium and phosphorus levels. Continue phosphate b inders. 5. Acute encephalopathy, etiology toxic metabolic. Continue to monitor. 6. Seizure disorder. Continue Depakote. 7. Access, will place for a Perm-A-Cath exchange. 8. Sepsis, clinically improving. Continue current antibiotic regimen. 9. Diabetes, continue Accu-Cheks and sliding scale. 10. Hypothyroidism. Continue Synthroid. 11. Bipolar disorder. Continue medical management. 12. Cardiopathy, continue current treatment plan. Dictated By: KERI MEADE/LEAH Conf#: [id number] DID#: [id number]
[2017-02-06] MEDS: SEVELAMER 800 MG TAB PO SCH ×3 (07:55→18:09)
[2017-02-06] MEDS: INSULIN ASPART [NOVOLOG] 3 ML PEN SC SCH ×4 (07:55→20:30)
[2017-02-06] MEDS: LACTOBACILLUS RHAMNOSUS CAP PO SCH ×2 (08:54→20:33)
[2017-02-06] MEDS: DOCUSATE SODIUM 100 MG CAP PO SCH ×2 (08:54→20:32)
[2017-02-06] MEDS: LISINOPRIL 5 MG TAB PO SCH (08:54)
[2017-02-06] MEDS: GABAPENTIN 100 MG CAP PO SCH ×2 (08:54→20:34)
[2017-02-06] MEDS: POLYETHYLENE GLYCOL 17 GM PACKET PO SCH (09:00)
[2017-02-06] MEDS ORDERED: EPOETIN 10000 UNITS/1 ML INJ (ESRD) SC SCH (09:30)
[2017-02-06] MEDS: LACOSAMIDE (100 MG/10 ML PO SYR) PO SCH ×2 (10:35→20:34)
--- NOTE | 2017-02-06 11:07 | CONS ---
Date/Time of Note Date/Time of Note DATE: 02/06/17 TIME: 11:03 Consult Date/Type/Reason Admit Date/Time Jan 20, 2017 at 15:31 Initial Consult Date 01/26/17 Type of Consultation: Neurology Reason for Consultation seizures encephalopathy Ordering Provider: SCOT DÍAZ Depakote was stopped due to asterixis and complaints of dizziness difficulty with speech Vimpat 100 mg BID added yesterday, no further generalized seizures still having episodes of speech arrest and dysarthria, expressive aphasia and orofacial dyskinesias and difficulty lifting extremities telemetry psychiatry consultation to be done this morning Objective Vital Signs Date Time Temp Pulse Resp B/P Pulse Ox O2 Delivery O2 Flow Rate FiO2 02/06/17 08:31 100 02/06/17 07:17 99.0 18 139/84 97 02/04/17 20:30 Room Air 02/04/17 01:23 21 Intake and Output 02/05/17 02/05/17 02/06/17 15:00 23:00 07:00 Intake Total 420 ml Balance 420 ml Exam awake and alert appears stated age oriented to self, hospital at times has difficulty and hesitancy with his speech expressive aphasia with word finding difficulty, halting speech orofacial dyskinesias CN: MARIA DEL ROSARIO, blinks to threat EOMI no nystagmus no significant facial asymmetry has some tardive dyskinesia orofacial twitching Motor: tremors + asterixis unable to perform FTN jerking movement on right when attempting to raise his arms Reflexes symmetric throughout Results/Medications Result Diagram: 02/04/17 0938 02/04/17 0938 Results 24 hrs Laboratory Tests Test 02/05/17 11:56 02/05/17 17:09 02/05/17 17:11 02/05/17 20:20 Bedside Glucose 93 581 *H 141 135 Test 02/06/17 08:49 Bedside Glucose 75 Medications Current Medications Aspirin (Halfprin) 81 mg DAILY PO Last administered on 02/05/17 08:12; Admin Dose 81 MG; Start 01/21/17 at 09:00; Status Future Hold Atorvastatin Calcium (Lipitor) 20 mg HS PO Last administered on 02/05/17 20:26 ; Admin Dose 20 MG; Start 01/20/17 at 21:00 Gabapentin (Neurontin) 100 mg BID PO Last administered on 02/06/17 08:54; Admin Dose 100 MG; Start 01/20/17 at 21:00 Lisinopril (Zestril) 2.5 mg DAILY PO Last administered on 02/06/17 08:54; Admin Dose 2.5 MG; Start 01/21/17 at 09:00 Insulin Glargine (Lantus) 17 unit DAILY@20 SC Last administered on 02/05/17 20 :34; Admin Dose 17 UNIT; Start 01/20/17 at 20:00 Miscellaneous Information 1 ea NOTE XX ; Start 01/20/17 at 17:30 Glucose (Glutose) 15 gm Q15M PRN PO DECREASED GLUCOSE; Start 01/20/17 at 17:30 Glucose (Glutose) 22.5 gm Q15M PRN PO DECREASED GLUCOSE; Start 01/20/17 at 17:30 Dextrose (D50w Syringe) 25 ml Q15M PRN IV DECREASED GLUCOSE; Start 01/20/17 at 17:30 Dextrose (D50w Syringe) 50 ml Q15M PRN IV DECREASED GLUCOSE; Start 01/20/17 at 17:30 Glucagon (Glucagen) 1 mg Q15M PRN IM DECREASED GLUCOSE; Start 01/20/17 at 17:30 Glucose (Glutose) 15 gm Q15M PRN BUCCAL DECREASED GLUCOSE; Start 01/20/17 at 17: 30 Diagnostic Test (Pha) (Accu-Chek) 1 ea 02 XX Last administered on 02/01/17 01: 17; Admin Dose 1 EA; Start 01/21/17 at 02:00 Zolpidem Tartrate (Ambien) 5 mg HS PRN PO INSOMNIA Last administered on 21:50; Admin Dose 5 MG; Start 01/20/17 at 23:30 Polyethylene Glycol (Miralax) 17 gm DAILY PO Last administered on 02/05/17 08: 12; Admin Dose 17 GM; Start 01/21/17 at 15:00 Docusate Sodium (Colace) 100 mg BID PO Last administered on 02/06/17 08:54; Admin Dose 100 MG; Start 01/21/17 at 15:00 Quetiapine Fumarate (Seroquel) 200 mg QHS PO Last administered on 02/05/17 20: 27; Admin Dose 200 MG; Start 6/4/17 at 21:00 Ondansetron HCl (Zofran Inj) 4 mg Q6H PRN IV NAUSEA AND/OR VOMITING Last administered on 01/26/17 20:52; Admin Dose 4 MG; Start 01/24/17 at 23:45 Hydralazine HCl (Apresoline) 10 mg Q6H PRN IV For SBP > 160; Start 01/28/17 at 21:30 Lactobacillus Acidophilus/ Rhamnosus (Culturelle) 1 cap BID PO Last administered on 02/06/17 08:54; Admin Dose 1 CAP; Start 01/30/17 at 21:00 Acetaminophen (Tylenol Tab) 650 mg Q6H PRN PO PAIN AND OR ELEVATED TEMP; Start 02/04/17 at 17:00 Lacosamide (Vimpat Liq) 100 mg BID PO Last administered on 02/06/17 10:35; Admin Dose 100 MG; Start 02/05/17 at 12:30 Assessment/Plan Chief Complaint/Hosp Course 56 yo male ESRD, DM, hypothyroidism, ischemic CM admitted with pneumonia and encephalopathy with active metabolic issues. EEG: generalized bihemispheric background slowing with left central parietal epileptiform activity, which is consistent with encephalopathy with epileptiform activity. Depakote 750 mg ER was initiated last week, level was therapeutic however patient feels increasing jerking movements. Tremors are a potential side effect of Depakote and being on other antipsychotics and high doses of Seroquel may also worsen these movements. Recommendations: discontinue any medications that may lower seizures threshold ativan low dose prn for further prolonged seizure activity >2 mins. 0.1 mg/kg max dose 4 mg Vimpat 100 mg BID increase to 150 mg BID on 02/12 pending psychiatry consultation, may consider addition of Lamictal continue frequent neuro checks psychiatry evaluation pending to adjust anti-psychotics, and potentially lower dose of Seroquel, treatment of tardive dyskinesia? will follow Problems: MONY GRIFFIN MD Feb 06, 2017 11:07
--- NOTE | 2017-02-06 11:10 | PN ---
DATE: 02/06/2017 SUBJECTIVE: The patient is scheduled for PermCath exchange today. No other events noted. OBJECTIVE: VITAL SIGNS: Blood pressure 139/84, respiration 18, pulse 103, temperature 99.0. HEENT: Head is normocephalic. NECK: Supple. HEART: Regular rate. LUNGS: Show diminished breath sounds at the base. ABDOMEN: Soft, nontender to palpation. No rebound or guarding. EXTREMITIES: Negative for clubbing, cyanosis, no edema. DERMATOLOGIC: No rashes. MUSCULOSKELETAL: No joint effusions. NEUROLOGIC: No change in exam. MEDICATIONS: The patient's medications have been reviewed. LABORATORY DATA: Have been reviewed. No new labs. ASSESSMENT AND PLAN: 1. End-stage renal disease. The patient is scheduled for dialysis today, for ____3K bath, calcium 2.5. 2. Access. The patient is pending Perm-A-Cath exchange. 3. Hyperkalemia, improved. Continue dialysis on 2 potassium bath. 4. Anemia. Continue to monitor hemoglobin and hematocrit levels. Continue Epogen. 5. Mineral bone disorder. Continue to monitor calcium and phosphorus levels. Continue phosphate b inders. 6. Acute encephalopathy, etiology is toxic metabolic. Continue to monitor. 7. Seizure disorder. Continue Depakote. 8. Sepsis, clinically improving. Patient is completing antibiotic course. 9. Diabetes. Continue Accu-Cheks and sliding scale. 10. Hypothyroidism. Continue Synthroid. 11. Bipolar disorder. Continue medical management. 12. Cardiomyopathy. Continue current treatment plan. Dictated By: KERI MEADE/LEAH Conf#: [id number] DID#: [id number]
[2017-02-06 11:30] LABS: ABNORMAL IP MESSAGE 1; BASOPHILS % 0.6 % (0.0-2.0); EOSINOPHILS # 0.5 10^3/ul (0.0-0.5); EOSINOPHILS % 7.3 % (0.0-7.0); HEMATOCRIT 36.9 % (42.0-52.0); HEMOGLOBIN 11.1 g/dl (14.0-18.0); LYMPHOCYTES # 0.9 10^3/ul (0.8-2.9); LYMPHOCYTES % 13.2 % (15.0-51.0); MEAN CORPUSCULAR HEMOGLOBIN 27.9 pg (29.0-33.0); MEAN CORPUSCULAR HGB CONC 30.1 g/dl (32.0-37.0); MEAN CORPUSCULAR VOLUME 92.7 fl (82.0-101.0); MEAN PLATELET VOLUME 13.9 fl (7.4-10.4); MONOCYTE # 0.5 10^3/ul (0.3-0.9); MONOCYTES % 8.1 % (0.0-11.0); NEUTROPHIL # 4.6 10^3/ul (1.6-7.5); NEUTROPHILS % 70.5 % (39.0-77.0); PLATELET COUNT 117 10^3/UL (140-415); RED BLOOD COUNT 3.98 10^6/ul (4.70-6.10); RED CELL DISTRIBUTION WIDTH 16.9 % (11.5-14.5); WHITE BLOOD COUNT 6.6 10^3/ul (4.8-10.8)
--- NOTE | 2017-02-06 11:32 | PN ---
Date/Time of Note Date/Time of Note DATE: 02/06/17 TIME: 11:26 Assessment/Plan VTE Prophylaxis VTE Prophylaxis Intervention: SCD's Lines/Catheters IV [facility]ter [facility]from [facility] Saline Lock Urinary Cath still in place: No Assessment/Plan Assessment/Plan 1. Acute encephalopathy, most probably toxic metabolic in origin from underlying sepsis versus from central nervous system disorder. The patient's mental status is improving. The patient is still impulsive. - psych consult to adjust medications 2. Right-sided pneumonia with right-sided pleural effusion. Continue antibiotics as per Infectious Disease. 3. Sepsis with underlying gram-positive bacteremia. No evidence of septic shock. Continue antibiotics as per Infectious Disease. 4. Seizure disorder. EEG confirming seizures. Status post evaluation by neurology. switched to Vimpat, possibly added lamictal 5. Acute respiratory failure. Hypoxic. Most probably secondary to underlying pneumonia. Resolved. 6. End-stage renal disease on hemodialysis. Continue hemodialysis as per nephrology. today - renally adjust medications 7. Cardiomyopathy with ejection fraction of 40% as per 2D echocardiogram done on 04/10/2016. Continue IGLESIA inhibitors. 8. Hypothyroidism. Continue Synthroid. 9. Bipolar disorder. changed to seroquel, added cogentin, need to adjust 2/2 # 4. - psych consulted 10. Dyslipidemia. Continue statins. 11. Type 2 diabetes mellitus. Off oral medications. On sliding scale insulin. Hemoglobin A1c 5.6. 12. Dysfunctional PermCath. Plans for replacement today. 13. Fluid, electrolytes and nutrition. Carbohydrate controlled diet. 14. Deep venous thrombosis prophylaxis. Bilateral lower extremity sequential compression devices. 15. Normocytic hypochromic anemia. Iron panel shows iron deficiency. Will continue the patient on iron supplements. Plan. The patient ideally needs a custodial facility because of impulsive behavior and frequent falls. Patient refusing to go to a custodial facility. Status post evaluation by physical therapy. The patient asking to talk to the neurologist. Will have neurologist reevaluate the patient. Talked to the patients friend/spokes person Neo Barriga on 02/03/2017. Informed him about the findings in EEG. Psych eval today Await for neurologist to reevaluate the patient. Await for PermCath placement - re-evaluate neurologically post dialysis. this progress note took greater than 40 minutes to complete Subjective 24 Hr Interval Summary Free Text/Dictation Patient had no overnight events. Seizure like activity has been decreased. Although his cognition and speech has decreased as well in fluidity as per spa consultant. Spoke to the nurse about the care plan. 20 minutes spent. Exam/Review of Systems Vital Signs Vitals Vital Signs Date Time Temp Pulse Resp B/P Pulse Ox O2 Delivery O2 Flow Rate FiO2 02/06/17 11:16 98.6 88 19 136/91 97 02/04/17 20:30 Room Air 02/04/17 01:23 21 Intake and Output 02/05/17 02/05/17 02/06/17 15:00 23:00 07:00 Intake Total 420 ml Balance 420 ml Exam Gen Mellissa: NAD, AAOx4 - speech slowed HEENT: NC/AT, PERRLA, EOMI, no pharyngeal erythema, no tonsillar exudates, no lymphadenopathy, no JVD, no carotid bruits NECK: supple, no thyromegaly THORAX: symmetrical, no obvious deformities CV: S1S2, RRR, no M/G/R Lungs: CTAB no W/C/R/R Abd: soft, NT/ND, +BS, no rebound, no guarding, neg HSM EXT: 3/5 strength bilateral upper and lower extremities, with worsening stiffness Neuro: tardive dyskinesia noted, no cogwheel rigidity, slow speech Psych: difficult to assess 2/2 to current mentation Skin: C/D/I Results Result Diagram: 02/04/1738 02/04/17 0938 Results 24 hrs Laboratory Tests Test 02/05/17 11:56 02/05/17 17:09 02/05/17 17:11 02/05/17 20:20 Bedside Glucose 93 581 *H 141 135 Test 02/06/17 08:49 Bedside Glucose 75 Medications Medications Current Medications Aspirin (Halfprin) 81 mg DAILY PO Last administered on 02/05/17 08:12; Admin Dose 81 MG; Start 01/21/17 at 09:00; Status Future Hold Atorvastatin Calcium (Lipitor) 20 mg HS PO Last administered on 02/05/17 20:26 ; Admin Dose 20 MG; Start 01/20/17 at 21:00 Gabapentin (Neurontin) 100 mg BID PO Last administered on 02/06/17 08:54; Admin Dose 100 MG; Start 01/20/17 at 21:00 Lisinopril (Zestril) 2.5 mg DAILY PO Last administered on 02/06/17 08:54; Admin Dose 2.5 MG; Start 01/21/17 at 09:00 Insulin Glargine (Lantus) 17 unit DAILY@20 SC Last administered on 02/05/17 20 :34; Admin Dose 17 UNIT; Start 01/20/17 at 20:00 Miscellaneous Information 1 ea NOTE XX ; Start 01/20/17 at 17:30 Glucose (Glutose) 15 gm Q15M PRN PO DECREASED GLUCOSE; Start 01/20/17 at 17:30 Glucose (Glutose) 22.5 gm Q15M PRN PO DECREASED GLUCOSE; Start 01/20/17 at 17:30 Dextrose (D50w Syringe) 25 ml Q15M PRN IV DECREASED GLUCOSE; Start 01/20/17 at 17:30 Dextrose (D50w Syringe) 50 ml Q15M PRN IV DECREASED GLUCOSE; Start 01/20/17 at 17:30 Glucagon (Glucagen) 1 mg Q15M PRN IM DECREASED GLUCOSE; Start 01/20/17 at 17:30 Glucose (Glutose) 15 gm Q15M PRN BUCCAL DECREASED GLUCOSE; Start 01/20/17 at 17: 30 Diagnostic Test (Pha) (Accu-Chek) 1 ea 02 XX Last administered on 02/01/17 01: 17; Admin Dose 1 EA; Start 01/21/17 at 02:00 Zolpidem Tartrate (Ambien) 5 mg HS PRN PO INSOMNIA Last administered on 21:50; Admin Dose 5 MG; Start 01/20/17 at 23:30 Polyethylene Glycol (Miralax) 17 gm DAILY PO Last administered on 02/05/17 08: 12; Admin Dose 17 GM; Start 01/21/17 at 15:00 Docusate Sodium (Colace) 100 mg BID PO Last administered on 02/06/17 08:54; Admin Dose 100 MG; Start 01/21/17 at 15:00 Quetiapine Fumarate (Seroquel) 200 mg QHS PO Last administered on 02/05/17 20: 27; Admin Dose 200 MG; Start 01/21/17 at 21:00 Ondansetron HCl (Zofran Inj) 4 mg Q6H PRN IV NAUSEA AND/OR VOMITING Last administered on 01/26/17 20:52; Admin Dose 4 MG; Start 01/24/17 at 23:45 Hydralazine HCl (Apresoline) 10 mg Q6H PRN IV For SBP > 160; Start 01/28/17 at 21:30 Lactobacillus Acidophilus/ Rhamnosus (Culturelle) 1 cap BID PO Last administered on 02/06/17 08:54; Admin Dose 1 CAP; Start 01/30/17 at 21:00 Acetaminophen (Tylenol Tab) 650 mg Q6H PRN PO PAIN AND OR ELEVATED TEMP; Start 02/04/17 at 17:00 Lacosamide (Vimpat Liq) 100 mg BID PO Last administered on 02/06/17 10:35; Admin Dose 100 MG; Start 02/05/17 at 12:30 Benztropine Mesylate (Cogentin) 2 mg BID PO ; Start 02/06/17 at 21:00 KRISS MENDIETA MD Feb 06, 2017 11:32
[2017-02-06 11:49] LABS: CALCIUM 9.5 mg/dl (8.4-10.2); MAGNESIUM 2.6 mg/dl (1.7-2.5); PHOSPHORUS 6.8 mg/dl (2.5-4.9)
[2017-02-06 11:58] LABS: CREATININE 14.88 mg/dl (0.61-1.24); POTASSIUM 6.3 mmol/L (3.5-5.1)
[2017-02-06] MEDS ORDERED: SOD CHLORIDE 0.9% 500 ML ONE (13:44)
[2017-02-06] MEDS ORDERED: LIDOCAINE 1% (MDV) 20 ML INJ ONE (13:44)
[2017-02-06] MEDS ORDERED: FENTAnyl 50 MCG/ML VIAL ONE (13:44)
[2017-02-06] MEDS ORDERED: HEPARIN 1000 UNITS/ML 10 ML INJ ONE (13:44)
[2017-02-06] MEDS ORDERED: MIDAZOLAM 1 MG/ML 2 ML INJ ONE (13:45)
--- NOTE | 2017-02-06 18:29 | RADRPT ---
PROCEDURE: Over the wire exchange of left internal jugular vein tunneled dialysis catheter. CLINICAL INDICATION: Renal failure. The existing dialysis catheter is not functioning. TECHNIQUE: Prior to the procedure, informed consent was obtained. Risks including bleeding, infection, and pneu mothorax were explained to the patient. The patient understood and was willing to proceed. A procedu ral pause was performed. The patient's name, date of , and procedure to be performed were verif ied. The central line was inserted with all elements of maximal sterile barrier technique. All of the fol lowing were used: head covering, facial mask, sterile gown, sterile gloves, a large sterile sheet, h and hygiene, and 2% chlorhexidine for cutaneous antisepsis. The left neck and anterior/superior ch est wall was prepped and draped in usual sterile fashion. Following the local injection of Xylocaine, a 1 cm incision was made at the site of the entry of the tunneled dialysis catheter in the left anterior chest wall. The existing left internal jugular vei n dialysis catheter was dissected out using blunt dissection. The catheter was removed with fluoros copic guidance over a 0.035-inch guide wire. The new 14.5 Yoruba 28 cm tip to cuff Angiodynamics BioFlo DuraMax dialysis catheter was advanced ov er the guide wire. The guidewire was removed. The tip of the catheter was confirmed in position wit hin the upper right atrium. The 2 ports were each flushed with 2.5 ml of 1:1000 heparin. The catheter was secured to the skin wi th 2-0 silk. The site was dressed. The patient tolerated the procedure well. COMPARISON: None. FINDINGS: Final images demonstrate the tip of the catheter in the upper right atrium. A total of 0.4 minutes of fluoroscopy time was used. 6 images of the chest were obtained with image intensifier. IMPRESSION: 1. Percutaneous replacement of left internal jugular dialysis tunneled dialysis catheter under fluor oscopic guidance. RPTAT: QQ .Derrick Hernández MD, Date Time Electronically viewed and signed by .Derrick Hernández MD, on 02/06/2017 18:29 .R/
[2017-02-06] MEDS: BENZTROPINE 1 MG TAB PO SCH (20:32)
[2017-02-06] MEDS: QUETIAPINE 100 MG TAB PO SCH (20:33)
[2017-02-06] MEDS: ATORVASTATIN 20 MG TAB PO SCH (20:33)
[2017-02-06] MEDS: INSULIN GLARGINE [LANtus] 3 ML PEN SC SCH (20:51)
[2017-02-07] VITALS (13 sets, daily range): BP systolic 150–183; BP diastolic 65–97; PULSE 87–110; RESP 16–20
[2017-02-07] MEDS: ACCUCHECK AT 2AM (Patients on SS coverage) XX SCH (02:00)
[2017-02-07] MEDS: LEVOTHYROXINE 150 MCG TAB PO SCH (06:07)
[2017-02-07] MEDS: INSULIN ASPART [NOVOLOG] 3 ML PEN SC SCH ×4 (07:53→20:07)
[2017-02-07] MEDS: SEVELAMER 800 MG TAB PO SCH ×3 (07:59→18:25)
[2017-02-07] MEDS: BENZTROPINE 1 MG TAB PO SCH ×2 (09:33→20:06)
[2017-02-07] MEDS: GABAPENTIN 100 MG CAP PO SCH ×2 (09:35→20:06)
[2017-02-07] MEDS: LISINOPRIL 5 MG TAB PO SCH (09:35)
[2017-02-07] MEDS: DOCUSATE SODIUM 100 MG CAP PO SCH ×2 (09:35→20:06)
[2017-02-07] MEDS: LACTOBACILLUS RHAMNOSUS CAP PO SCH ×2 (09:35→20:07)
[2017-02-07] MEDS: POLYETHYLENE GLYCOL 17 GM PACKET PO SCH (09:37)
[2017-02-07] MEDS: LACOSAMIDE (100 MG/10 ML PO SYR) PO SCH ×2 (09:39→20:06)
--- NOTE | 2017-02-07 09:43 | PN ---
DATE: 02/07/2017 SUBJECTIVE: The patient is stable. The patient had hemodialysis yesterday, tolerated well. Awa vizcarra has Perm-A-Cath exchange yesterday. OBJECTIVE: VITAL SIGNS: Blood pressure is 170/96, respiration 18, pulse 94, temperature 98.0. HEENT: Head is normocephalic. Pupils are reactive to light. NECK: Supple. HEART: Regular rate. LUNGS: Show diminished breath sounds at base. ABDOMEN: Soft, nontender to palpation. No rebound or guarding. EXTREMITIES: Negative for clubbing, cyanosis, edema. DERMATOLOGIC: No rashes. MUSCULOSKELETAL: No joint effusions. NEUROLOGIC: No change in exam. MEDICATIONS: Have been reviewed. LABORATORY DATA: Has been reviewed. ASSESSMENT AND PLAN: 1. End-stage renal disease. The patient had hemodialysis yesterday, tolerated well. Follow up kaitlin al panel today. Anticipate dialysis for tomorrow. 2. Hyperkalemia. The patient was dialyzed with 2 potassium bath. We will follow up renal panel. Continue low-potassium diet. 3. Anemia. Continue to monitor hemoglobin and hematocrit levels. Continue Epogen. 4. Mineral bone disorder. Continue to monitor calcium and phosphorus levels. Continue phos binder s. 5. Acute encephalopathy, etiology is toxic metabolic. Continue to monitor. 6. Seizure disorder. Continue Depakote. 7. Sepsis, clinically improving. Patient completing antibiotic course. 8. Diabetes. Continue Accu-Cheks and sliding scale. 9. Hypothyroidism. Continue Synthroid. 10. Bipolar disorder. Continue psychotropic medications. 11. Cardiomyopathy. Continue current treatment plan. Dictated By: KERI MEADE/LEAH Conf#: [id number] DID#: [id number]
--- NOTE | 2017-02-07 11:16 | CONS ---
Date/Time of Note Date/Time of Note DATE: 02/07/17 TIME: 11:13 Consult Date/Type/Reason Admit Date/Time Jan 20, 2017 at 15:31 Initial Consult Date 01/26/17 Type of Consultation: Neurology Reason for Consultation seizures, encephalopathy Ordering Provider: SCOT DÍAZ Subjective complains of persistent difficulty with speech, slightly better compared to previous day pain in both in legs and arms started on Cogentin 2 mg BID after psychiatry tele consultation no generalized seizures Objective Vital Signs Date Time Temp Pulse Resp B/P Pulse Ox O2 Delivery O2 Flow Rate FiO2 02/07/17 11:07 97.9 98 18 154/94 95 02/06/17 15:19 Room Air 02/06/17 15:15 2 02/04/17 01:23 21 Intake and Output 02/06/17 02/06/17 02/07/17 15:00 23:00 07:00 Intake Total 800 ml 200 ml Output Total 3200 ml 250 ml Balance -2400 ml -50 ml Exam awake and alert appears stated age oriented to self, hospital at times has difficulty and hesitancy with his speech expressive aphasia with word finding difficulty, halting speech orofacial dyskinesias CN: MARIA DEL ROSARIO, blinks to threat EOMI no nystagmus no significant facial asymmetry has some tardive dyskinesia orofacial twitching Motor: tremors + asterixis unable to perform FTN jerking movement on right when attempting to raise his arms Reflexes symmetric throughout Results/Medications Result Diagram: 02/06/17 1045 02/06/17 0620 Results 24 hrs Laboratory Tests Test 02/06/17 12:06 02/06/17 13:15 02/06/17 15:27 02/06/17 18:00 Bedside Glucose 71 81 82 141 Test 02/06/17 20:29 02/07/17 07:52 Bedside Glucose 85 73 Medications Current Medications Aspirin (Halfprin) 81 mg DAILY PO Last administered on 02/05/17 08:12; Admin Dose 81 MG; Start 01/21/17 at 09:00; Status Future Hold Atorvastatin Calcium (Lipitor) 20 mg HS PO Last administered on 02/06/17 20:33 ; Admin Dose 20 MG; Start 01/20/17 at 21:00 Gabapentin (Neurontin) 100 mg BID PO Last administered on 02/07/17 09:35; Admin Dose 100 MG; Start 01/20/17 at 21:00 Lisinopril (Zestril) 2.5 mg DAILY PO Last administered on 02/07/17 09:35; Admin Dose 2.5 MG; Start 01/21/17 at 09:00 Insulin Glargine (Lantus) 17 unit DAILY@20 SC Last administered on 02/06/17 20 :51; Admin Dose 17 UNIT; Start 01/20/17 at 20:00 Miscellaneous Information 1 ea NOTE XX ; Start 01/20/17 at 17:30 Glucose (Glutose) 15 gm Q15M PRN PO DECREASED GLUCOSE; Start 01/20/17 at 17:30 Glucose (Glutose) 22.5 gm Q15M PRN PO DECREASED GLUCOSE; Start 01/20/17 at 17:30 Dextrose (D50w Syringe) 25 ml Q15M PRN IV DECREASED GLUCOSE; Start 01/20/17 at 17:30 Dextrose (D50w Syringe) 50 ml Q15M PRN IV DECREASED GLUCOSE; Start 01/20/17 at 17:30 Glucagon (Glucagen) 1 mg Q15M PRN IM DECREASED GLUCOSE; Start 01/20/17 at 17:30 Glucose (Glutose) 15 gm Q15M PRN BUCCAL DECREASED GLUCOSE; Start 01/20/17 at 17: 30 Diagnostic Test (Pha) (Accu-Chek) 1 ea 02 XX Last administered on 02/01/17 01: 17; Admin Dose 1 EA; Start 01/21/17 at 02:00 Zolpidem Tartrate (Ambien) 5 mg HS PRN PO INSOMNIA Last administered on 21:50; Admin Dose 5 MG; Start 01/20/17 at 23:30 Polyethylene Glycol (Miralax) 17 gm DAILY PO Last administered on 02/07/17 09: 37; Admin Dose 17 GM; Start 01/21/17 at 15:00 Docusate Sodium (Colace) 100 mg BID PO Last administered on 02/07/17 09:35; Admin Dose 100 MG; Start 01/21/17 at 15:00 Quetiapine Fumarate (Seroquel) 200 mg QHS PO Last administered on 02/06/17 20: 33; Admin Dose 200 MG; Start 01/21/17 at 21:00 Ondansetron HCl (Zofran Inj) 4 mg Q6H PRN IV NAUSEA AND/OR VOMITING Last administered on 01/26/17 20:52; Admin Dose 4 MG; Start 01/24/17 at 23:45 Hydralazine HCl (Apresoline) 10 mg Q6H PRN IV For SBP > 160 Last administered on 02/07/17 07:47; Admin Dose 10 MG; Start 01/28/17 at 21:30 Lactobacillus Acidophilus/ Rhamnosus (Culturelle) 1 cap BID PO Last administered on 02/07/17 09:35; Admin Dose 1 CAP; Start 01/30/17 at 21:00 Acetaminophen (Tylenol Tab) 650 mg Q6H PRN PO PAIN AND OR ELEVATED TEMP; Start 02/04/17 at 17:00 Lacosamide (Vimpat Liq) 100 mg BID PO Last administered on 02/07/17 09:39; Admin Dose 100 MG; Start 02/05/17 at 12:30 Benztropine Mesylate (Cogentin) 2 mg BID PO Last administered on 02/07/17 09: 33; Admin Dose 2 MG; Start 02/06/17 at 21:00 Assessment/Plan Chief Complaint/Hosp Course 56 yo male ESRD, DM, hypothyroidism, ischemic CM admitted with pneumonia and encephalopathy with active metabolic issues. EEG: generalized bihemispheric background slowing with left central parietal epileptiform activity, which is consistent with encephalopathy with epileptiform activity. Depakote 750 mg ER was initiated last week, level was therapeutic however patient feels increasing jerking movements. Tremors are a potential side effect of Depakote and being on other antipsychotics and high doses of Seroquel may also worsen these movements. Encephalopathy secondary to toxic/metabolic issues underlying seizures, behavioral issues from psychiatric disease Recommendations: discontinue any medications that may lower seizures threshold ativan low dose prn for further prolonged seizure activity >2 mins. 0.1 mg/kg max dose 4 mg Vimpat 100 mg BID increase to 150 mg BID on 02/12 psychiatry consulted started Cogentin 2 mg BID continue frequent neuro checks psychiatry evaluation pending to adjust anti-psychotics, and potentially lower dose of Seroquel, treatment of tardive dyskinesia- started on cogentin PT/OT evaluation likely to require SNF Problems: MONY GRIFFIN MD Feb 07, 2017 11:16
--- NOTE | 2017-02-07 11:52 | PN ---
Date/Time of Note Date/Time of Note DATE: 02/07/17 TIME: 11:51 Assessment/Plan VTE Prophylaxis VTE Prophylaxis Intervention: SCD's Lines/Catheters [facility] Saline Lock Urinary Cath still in place: No Assessment/Plan Assessment/Plan 56 yo M with ESRD on HD seizure d/o, bipolar admitted for altered mental status 1. Acute encephalopathy, most probably toxic metabolic in origin from underlying sepsis versus from central nervous system disorder. The patient's mental status is improving. The patient is still impulsive. psych following 2. Right-sided pneumonia with right-sided pleural effusion. ABX COMPLETE 3. Sepsis with underlying gram-positive bacteremia. No evidence of septic shock. ABX COMPLETE PER ID 4. Seizure disorder. EEG confirming seizures. Status post evaluation by neurology. AEDs as per neuro 5. Acute respiratory failure. Hypoxic. Resolved. 6. End-stage renal disease on hemodialysis. Continue hemodialysis as per nephrology. sp dysfunctional line replacement 02.06 7. Cardiomyopathy with ejection fraction of 40% as per 2D echocardiogram done on 04/10/2016. Continue IGLESIA inhibitors. 8. Hypothyroidism. Continue Synthroid. 9. Bipolar disorder. psych meds as per psych 10. Dyslipidemia. Continue statins. 11. Type 2 diabetes mellitus. Off oral medications. On sliding scale insulin. Hemoglobin A1c 5.6. 12. Deep venous thrombosis prophylaxis. Bilateral lower extremity sequential compression devices. 13. Normocytic hypochromic anemia. Iron panel shows iron deficiency. Will continue the patient on iron supplements. DISPO. The patient ideally needs a correction facility because of impulsive behavior and frequent falls. Patient refusing to go to a correction facility. Status post evaluation by physical therapy. The patient asking to talk to the neurologist. Will have neurologist reevaluate the patient. Talked to the patients friend/spokes person Neoisaías Barriga on 2016. Informed him about the findings in EEG. psych eval yesterday. Neurology following. Non functioning HD access has been repaired Subjective 24 Hr Interval Summary Free Text/Dictation No complaints this AM. Getting blood drawn at time of my eval Exam/Review of Systems Vital Signs Vitals Vital Signs Date Time Temp Pulse Resp B/P Pulse Ox O2 Delivery O2 Flow Rate FiO2 02/07/17 11:07 97.9 98 18 154/94 95 02/06/17 15:19 Room Air 02/06/17 15:15 2 6/18/17 01:23 21 Intake and Output 02/06/17 02/06/17 02/07/17 15:00 23:00 07:00 Intake Total 800 ml 200 ml Output Total 3200 ml 250 ml Balance -2400 ml -50 ml Exam nad, sitting up in bed no mrg lungs clear abd soft no rashes Results Result Diagram: 02/06/17 1045 02/06/17 0620 Results 24 hrs Laboratory Tests Test 02/06/17 12:06 02/06/17 13:15 02/06/17 15:27 02/06/17 18:00 Bedside Glucose 71 81 82 141 Test 02/06/17 20:29 02/07/17 07:52 Bedside Glucose 85 73 Medications Medications Current Medications Aspirin (Halfprin) 81 mg DAILY PO Last administered on 02/05/17 08:12; Admin Dose 81 MG; Start 01/21/17 at 09:00; Status Future Hold Atorvastatin Calcium (Lipitor) 20 mg HS PO Last administered on 02/06/17 20:33 ; Admin Dose 20 MG; Start 01/20/17 at 21:00 Gabapentin (Neurontin) 100 mg BID PO Last administered on 02/07/17 09:35; Admin Dose 100 MG; Start 01/20/17 at 21:00 Lisinopril (Zestril) 2.5 mg DAILY PO Last administered on 02/07/17 09:35; Admin Dose 2.5 MG; Start 01/21/17 at 09:00 Insulin Glargine (Lantus) 17 unit DAILY@20 SC Last administered on 02/06/17 20 :51; Admin Dose 17 UNIT; Start 01/20/17 at 20:00 Miscellaneous Information 1 ea NOTE XX ; Start 01/20/17 at 17:30 Glucose (Glutose) 15 gm Q15M PRN PO DECREASED GLUCOSE; Start 01/20/17 at 17:30 Glucose (Glutose) 22.5 gm Q15M PRN PO DECREASED GLUCOSE; Start 01/20/17 at 17:30 Dextrose (D50w Syringe) 25 ml Q15M PRN IV DECREASED GLUCOSE; Start 01/20/17 at 17:30 Dextrose (D50w Syringe) 50 ml Q15M PRN IV DECREASED GLUCOSE; Start 01/20/17 at 17:30 Glucagon (Glucagen) 1 mg Q15M PRN IM DECREASED GLUCOSE; Start 01/20/17 at 17:30 Glucose (Glutose) 15 gm Q15M PRN BUCCAL DECREASED GLUCOSE; Start 01/20/17 at 17: 30 Diagnostic Test (Pha) (Accu-Chek) 1 ea 02 XX Last administered on 02/01/17 01: 17; Admin Dose 1 EA; Start 01/21/17 at 02:00 Zolpidem Tartrate (Ambien) 5 mg HS PRN PO INSOMNIA Last administered on 21:50; Admin Dose 5 MG; Start 01/20/17 at 23:30 Polyethylene Glycol (Miralax) 17 gm DAILY PO Last administered on 02/07/17 09: 37; Admin Dose 17 GM; Start 01/21/17 at 15:00 Docusate Sodium (Colace) 100 mg BID PO Last administered on 02/07/17 09:35; Admin Dose 100 MG; Start 01/21/17 at 15:00 Quetiapine Fumarate (Seroquel) 200 mg QHS PO Last administered on 02/06/17 20: 33; Admin Dose 200 MG; Start 01/21/17 at 21:00 Ondansetron HCl (Zofran Inj) 4 mg Q6H PRN IV NAUSEA AND/OR VOMITING Last administered on 01/26/17 20:52; Admin Dose 4 MG; Start 01/24/17 at 23:45 Hydralazine HCl (Apresoline) 10 mg Q6H PRN IV For SBP > 160 Last administered on 02/07/17 07:47; Admin Dose 10 MG; Start 01/28/17 at 21:30 Lactobacillus Acidophilus/ Rhamnosus (Culturelle) 1 cap BID PO Last administered on 02/07/17 09:35; Admin Dose 1 CAP; Start 01/30/17 at 21:00 Acetaminophen (Tylenol Tab) 650 mg Q6H PRN PO PAIN AND OR ELEVATED TEMP; Start 02/04/17 at 17:00 Lacosamide (Vimpat Liq) 100 mg BID PO Last administered on 02/07/17 09:39; Admin Dose 100 MG; Start 02/05/17 at 12:30 Benztropine Mesylate (Cogentin) 2 mg BID PO Last administered on 6/21/17at 09: 33; Admin Dose 2 MG; Start 02/06/17 at 21:00 TEE FAYE MD Feb 07, 2017 11:52 TEE FAYE MD Feb 07, 2017 11:52 TEE FAYE MD Feb 07, 2017 11:52 TEE FAYE MD Feb 07, 2017 11:52
[2017-02-07 14:34] LABS: CALCIUM 9.3 mg/dl (8.4-10.2); CREATININE 11.42 mg/dl (0.61-1.24); POTASSIUM 4.9 mmol/L (3.5-5.1)
--- NOTE | 2017-02-07 14:42 | PSY ---
Date/Time of Note Date/Time of Note DATE: 02/07/17 TIME: 14:36 Psychiatric Subjective Eval Consent Pt consented to telemedicine: Yes Subjective Evaluation Patient location: inpatient Chief Complaint: HYPOTENSIVE ALOC AND TACHY, Reason for consult: hx schizophrenia History of present illness Late entry, pt was seen 02/06/17 D/w Dr freitas Pt is 56 yo mal with hx schizophrenia admitted due to pneumonia and sepsis. Pt is confused intermittently; pt is calm and cooperative with the evaluation, but intermittently he repeated the same word or phrase multiple times. I.e. then i asked him how old he is he said "56" and then gave the same answer repeatedly then was asked about date, month, year. he repated it at least 10 times. He was not able to state why is he repeating the same word over again. He denies to me AH but appears to respond to internal stimuli; he says he is depressed but denies si or hi. He is oriented to place only, but does not know why he is in the hospital. Past psychiatric history not able to obtain - pt is disorganized Hospitalization: yes Family History unknown Medical history Problems Medical Problems: (1) Acute on chronic renal failure Status: Acute (2) Fluid overload Status: Acute (3) Hyperkalemia Status: Acute (4) Metabolic encephalopathy Status: Acute (5) Normocytic anemia Status: Acute (6) Problem with dialysis access Status: Acute (7) Pulmonary edema Status: Acute (8) Renal failure Status: Acute (9) Respiratory failure Status: Acute (10) Sepsis due to pneumonia Status: Acute (11) SIRS (systemic inflammatory response syndrome) Status: Acute (12) Symptomatic hypotension Status: Acute (13) Syncope Status: Acute (14) Syncope Status: Acute (15) Systemic inflammatory response syndrome Status: Acute (16) UTI (urinary tract infection) Status: Acute Allergies: Coded Allergies: No Known Allergy (Unverified , 04/14/16) Social History Marital status: single Psychiatric Objective Eval Mental Status Examination: Appearance: Disheveled Eye Contact: Fair Psychomotor Activity: Normal Behavior: Cooperative, Bizarre Speech: Clear, Other AFFECT: Constricted Mood: Irritable Though Process: Perseverative Thought Content: Hallucinations Suicidal: No Homicidal: No Orientation: x2 Cognition: Alert Insight: Impared Judgement: Impared Laboratory Results Laboratory Tests Test 02/05/17 17:09 02/05/17 17:11 02/05/17 20:20 02/06/17 06:20 Bedside Glucose 581mg/dL 141mg/dL 135mg/dL Sodium Level 137mmol/L Potassium Level 6.3mmol/L Chloride Level 99mmol/L Carbon Dioxide Level 21mmol/L Anion Gap 23 Blood Urea Nitrogen 70mg/dl Creatinine 14.88mg/dl Glucose Level 66mg/dl Calcium Level 9.5mg/dl Phosphorus Level 6.8mg/dl Magnesium Level 2.6mg/dl Test 02/06/17 08:49 02/06/17 10:45 02/06/17 12:06 02/06/17 13:15 Bedside Glucose 75mg/dL 71mg/dL 81mg/dL White Blood Count 6.610^3/ul Red Blood Count 3.9810^6/ul Hemoglobin 11.1g/dl Hematocrit 36.9% Mean Corpuscular Volume 92.7fl Mean Corpuscular Hemoglobin 27.9pg Mean Corpuscular Hemoglobin Concent 30.1g/dl Red Cell Distribution Width 16.9% Platelet Count 56693^3/UL Mean Platelet Volume 13.9fl Neutrophils % 70.5% Lymphocytes % 13.2% Monocytes % 8.1% Eosinophils % 7.3% Basophils % 0.6% Nucleated Red Blood Cells % 0.0/100WBC Neutrophils # 4.610^3/ul Lymphocytes # 0.910^3/ul Monocytes # 0.510^3/ul Eosinophils # 0.510^3/ul Basophils # 0.010^3/ul Nucleated Red Blood Cells # 0.010^3/ul Test 02/06/17 15:27 02/06/17 18:00 02/06/17 20:29 02/07/17 07:52 Bedside Glucose 82mg/dL 141mg/dL 85mg/dL 73mg/dL Test 02/07/17 12:14 02/07/17 13:30 Bedside Glucose 81mg/dL Sodium Level 134mmol/L Potassium Level 4.9mmol/L Chloride Level 97mmol/L Carbon Dioxide Level 24mmol/L Anion Gap 18 Blood Urea Nitrogen 49mg/dl Creatinine 11.42mg/dl Glucose Level 89mg/dl Calcium Level 9.3mg/dl Assessment and Plan Assessment/Diagnosis [place] I: SCHIZOAFFECTIVE DISORDER BY HX; DELIRIUM DUE TO MEDICAL CONDITION [place] II: DEFERED [place] III: PER RECORD [place] IV: MODERATE [place] V: GAF 35 Recommendation/Plan Medication Management PLEASE CONSIDER INCREASING SEROQUEL TO 300 MG POQHS AND RESTART ON ZOLFOT 50 MG POQD; FOR AGITAITON: ATIVAN 1-2 MG PO/IM/IV PRN Q 6 HRS AGITATION. Psychotherapy n/a Follow-up/Disposition pt needs to be re-evalauted then medically cleared for discharge, but at the present time he does not present dts or dto. MARCUS MENESES MD Feb 07, 2017 14:42
[2017-02-07] MEDS: QUETIAPINE 100 MG TAB PO SCH (20:07)
[2017-02-07] MEDS: INSULIN GLARGINE [LANtus] 3 ML PEN SC SCH (20:11)
[2017-02-07] MEDS: ATORVASTATIN 20 MG TAB PO SCH (20:13)
[2017-02-08] VITALS (20 sets, daily range): BP systolic 110–166; BP diastolic 70–99; PULSE 69–162; RESP 19–20
[2017-02-08] MEDS: ACCUCHECK AT 2AM (Patients on SS coverage) XX SCH ×2 (02:00→21:19)
[2017-02-08] MEDS: LEVOTHYROXINE 150 MCG TAB PO SCH (06:02)
[2017-02-08 07:54] LABS: ADD SCAN DIFF NO
[2017-02-08] MEDS: INSULIN ASPART [NOVOLOG] 3 ML PEN SC SCH ×4 (07:55→21:00)
[2017-02-08 08:04] LABS: ABNORMAL IP MESSAGE 1; BASOPHIL # 0.1 10^3/ul (0.0-0.1); BASOPHILS % 0.8 % (0.0-2.0); EOSINOPHILS # 0.5 10^3/ul (0.0-0.5); HEMATOCRIT 32.3 % (42.0-52.0); LYMPHOCYTES # 0.8 10^3/ul (0.8-2.9); LYMPHOCYTES % 13.3 % (15.0-51.0); MEAN CORPUSCULAR HEMOGLOBIN 28.7 pg (29.0-33.0); MEAN CORPUSCULAR VOLUME 92.6 fl (82.0-101.0); MONOCYTE # 0.6 10^3/ul (0.3-0.9); MONOCYTES % 8.9 % (0.0-11.0); NEUTROPHIL # 4.2 10^3/ul (1.6-7.5); NEUTROPHILS % 68.7 % (39.0-77.0); PLATELET COUNT 100 10^3/UL (140-415); RED BLOOD COUNT 3.49 10^6/ul (4.70-6.10); RED CELL DISTRIBUTION WIDTH 16.7 % (11.5-14.5); WHITE BLOOD COUNT 6.2 10^3/ul (4.8-10.8)
[2017-02-08 08:23] LABS: CALCIUM 9.2 mg/dl (8.4-10.2); CREATININE 12.74 mg/dl (0.61-1.24); MAGNESIUM 2.4 mg/dl (1.7-2.5); PHOSPHORUS 6.1 mg/dl (2.5-4.9); POTASSIUM 4.9 mmol/L (3.5-5.1)
[2017-02-08] MEDS: BENZTROPINE 1 MG TAB PO SCH (09:00)
--- NOTE | 2017-02-08 09:21 | PN ---
Date/Time of Note Date/Time of Note DATE: 02/08/17 TIME: 09:09 Assessment/Plan VTE Prophylaxis VTE Prophylaxis Intervention: heparin Lines/Catheters IV [facility] Saline Lock Urinary Cath still in place: No Assessment/Plan Assessment/Plan 1. Acute encephalopathy, most probably toxic metabolic in origin from underlying sepsis versus from central nervous system disorder. The patient's mental status is improving. The patient is still impulsive. Per DPOA"s report, patient was diagnosed with similar recently in [place]. 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 Patient is unable to make his own clinical decisions at this time. 2. S/p Right-sided pneumonia with right-sided pleural effusion. 3. S/p Sepsis with underlying gram-positive bacteremia. 4. Seizure disorder. EEG confirming seizures. neurology managing / no further seizures so far on Vimpat 5. S/p Acute respiratory failure. Hypoxic. Most probably secondary to underlying pneumonia. Resolved. 6. End-stage renal disease on hemodialysis. Continue hemodialysis as per nephrology. 7. Cardiomyopathy with ejection fraction of 40% as per 2D echocardiogram done on 04/10/2016. Continue IGLESIA inhibitors. 8. Hypothyroidism. Continue Synthroid. 9. Bipolar disorder. will commence psych recs 10. Dyslipidemia. Continue statins. 11. Type 2 diabetes mellitus. Off oral medications. On sliding scale insulin. Hemoglobin A1c 5.6. 12. Dysfunctional PermCath. s/p replacement 13. Fluid, electrolytes and nutrition. Carbohydrate controlled diet. 14. Deep venous thrombosis prophylaxis. Bilateral lower extremity sequential compression devices / add heparin 15. Normocytic hypochromic anemia. Iron panel shows iron deficiency. Will continue the patient on iron supplements. Plan. The patient ideally needs a prison facility because of impulsive behavior and frequent falls. Will d/w DPOA if he can convince patient to go to SNF Subjective 24 Hr Interval Summary Free Text/Dictation spoke with patient No new issues chronic pain issues Exam/Review of Systems Vital Signs Vitals Vital Signs Date Time Temp Pulse Resp B/P Pulse Ox O2 Delivery O2 Flow Rate FiO2 02/08/17 08:30 88 02/08/17 07:00 98.3 19 166/99 100 02/07/17 21:00 Room Air 02/06/17 15:15 2 Intake and Output 02/07/17 02/07/17 02/08/17 15:00 23:00 07:00 Intake Total 950 ml 400 ml Output Total 350 ml Balance 600 ml 400 ml Exam GENERAL: This is a slightly overweight -[place] male lying in bed in no apparent distress. HEENT: Head normocephalic and atraumatic. Eyes: Anicteric sclerae. Conjunctivae clear. ENT: Nasal septum is midline. Oral mucosa is dry. NECK: Supple. No JVD noticed. RESPIRATORY: Bilateral diminished breath sounds. No adventitious breath sounds heard. No use of accessory muscles of respiration. CARDIAC: Regular rate and rhythm. S1 and S2 heard. ABDOMEN: Soft, nontender and nondistended. Bowel sounds positive in all 4 quadrants. GENITOURINARY: Deferred. EXTREMITIES: No cyanosis, no clubbing, no edema. Peripheral pulses are palpable. NEUROLOGIC: The patient is awake and alert. Moves all 4 extremities. Oriented to self and place but still mildly confused. Results Result Diagram: 02/08/17 0655 02/08/17 0655 Results 24 hrs Laboratory Tests Test 02/07/17 12:14 02/07/17 13:30 02/07/17 18:23 02/07/17 20:05 Bedside Glucose 81 101 157 Sodium Level 134 L Potassium Level 4.9 Chloride Level 97 Carbon Dioxide Level 24 Anion Gap 18 H Blood Urea Nitrogen 49 #H Creatinine 11.42 #H Glucose Level 89 Calcium Level 9.3 Test 02/08/17 06:55 02/08/17 08:15 White Blood Count 6.2 Red Blood Count 3.49 L Hemoglobin 10.0 L Hematocrit 32.3 L Mean Corpuscular Volume 92.6 Mean Corpuscular Hemoglobin 28.7 L Mean Corpuscular Hemoglobin Concent 31.0 L Red Cell Distribution Width 16.7 H Platelet Count 100 L Mean Platelet Volume Neutrophils % 68.7 Lymphocytes % 13.3 L Monocytes % 8.9 Eosinophils % 8.0 H Basophils % 0.8 Nucleated Red Blood Cells % 0.0 Neutrophils # 4.2 Lymphocytes # 0.8 Monocytes # 0.6 Eosinophils # 0.5 Basophils # 0.1 Nucleated Red Blood Cells # 0.0 Sodium Level 132 L Potassium Level 4.9 Chloride Level 99 Carbon Dioxide Level 21 Anion Gap 17 H Blood Urea Nitrogen 55 H Creatinine 12.74 H Glucose Level 78 Calcium Level 9.2 Phosphorus Level 6.1 H Magnesium Level 2.4 Bedside Glucose 78 Medications Medications Current Medications Aspirin (Halfprin) 81 mg DAILY PO Last administered on 02/05/17 08:12; Admin Dose 81 MG; Start 01/21/17 at 09:00; Status Future Hold Atorvastatin Calcium (Lipitor) 20 mg HS PO Last administered on 02/07/17 20:13 ; Admin Dose 20 MG; Start 01/20/17 at 21:00 Gabapentin (Neurontin) 100 mg BID PO Last administered on 02/07/17 20:06; Admin Dose 100 MG; Start 01/20/17 at 21:00 Lisinopril (Zestril) 2.5 mg DAILY PO Last administered on 02/07/17 09:35; Admin Dose 2.5 MG; Start 01/21/17 at 09:00 Insulin Glargine (Lantus) 17 unit DAILY@20 SC Last administered on 02/07/17 20 :11; Admin Dose 17 UNIT; Start 01/20/17 at 20:00 Miscellaneous Information 1 ea NOTE XX ; Start 01/20/17 at 17:30 Glucose (Glutose) 15 gm Q15M PRN PO DECREASED GLUCOSE; Start 01/20/17 at 17:30 Glucose (Glutose) 22.5 gm Q15M PRN PO DECREASED GLUCOSE; Start 01/20/17 at 17:30 Dextrose (D50w Syringe) 25 ml Q15M PRN IV DECREASED GLUCOSE; Start 01/20/17 at 17:30 Dextrose (D50w Syringe) 50 ml Q15M PRN IV DECREASED GLUCOSE; Start 01/20/17 at 17:30 Glucagon (Glucagen) 1 mg Q15M PRN IM DECREASED GLUCOSE; Start 01/20/17 at 17:30 Glucose (Glutose) 15 gm Q15M PRN BUCCAL DECREASED GLUCOSE; Start 01/20/17 at 17: 30 Diagnostic Test (Pha) (Accu-Chek) 1 ea 02 XX Last administered on 02/01/17 01: 17; Admin Dose 1 EA; Start 01/21/17 at 02:00 Zolpidem Tartrate (Ambien) 5 mg HS PRN PO INSOMNIA Last administered on 21:50; Admin Dose 5 MG; Start 01/20/17 at 23:30 Polyethylene Glycol (Miralax) 17 gm DAILY PO Last administered on 6/21/17at 09: 37; Admin Dose 17 GM; Start 01/21/17 at 15:00 Docusate Sodium (Colace) 100 mg BID PO Last administered on 02/07/17 20:06; Admin Dose 100 MG; Start 01/21/17 at 15:00 Quetiapine Fumarate (Seroquel) 200 mg QHS PO Last administered on 02/07/17 20: 07; Admin Dose 200 MG; Start 01/21/17 at 21:00 Ondansetron HCl (Zofran Inj) 4 mg Q6H PRN IV NAUSEA AND/OR VOMITING Last administered on 01/26/17 20:52; Admin Dose 4 MG; Start 01/24/17 at 23:45 Lactobacillus Acidophilus/ Rhamnosus (Culturelle) 1 cap BID PO Last administered on 02/07/17 20:07; Admin Dose 1 CAP; Start 01/30/17 at 21:00 Acetaminophen (Tylenol Tab) 650 mg Q6H PRN PO PAIN AND OR ELEVATED TEMP; Start 02/04/17 at 17:00 Lacosamide (Vimpat Liq) 100 mg BID PO Last administered on 02/07/17 20:06; Admin Dose 100 MG; Start 02/05/17 at 12:30 Benztropine Mesylate (Cogentin) 2 mg BID PO Last administered on 02/07/17 20: 06; Admin Dose 2 MG; Start 02/06/17 at 21:00 Procedures Procedures P.T NOTES S: OK WITH RN WORK WITH PATIENT TODAY. PATIENT AGREED TO PARTAKE IN P.T. ACTS. PATIENT B/P ELEVATED. HOWEVER PATIENT NOT COMPLAINING OF ANY PAIN/HEADACHE/NOR DIZZINESS. O/A: PATIENT SEEN FOR FUNCTIONAL ACT. TRAINING/THEREX. PATIENT LIMITED TO THERAPEUTIC EXS TO BLE/UE. X 5REPS. X 2 SET. NOTICE SYNCOPY EPISODES. PATIENT ATTEMPTED TO SIT @ EOB BUT CONT'D TO NOTICED SIMILAR SYNCOPY BEHAVIORAL ACTS DURING THEREX SESSION. RETURNED PATIENT BTB. NOTICE PATIENT, DIFFICULTY WITH SPEECH, WELL. PATIENT STATED, "I HAVE THESE DAYS, IT SO HAPPENS THAT TODAY SEEMS A LITTLE MORE WORSE." RN AWARE OF PATIENT'S STATUS. PLS. READ P.T. NOTES FOR DETAILS/AND ASSIST LEVELS. P: WILL F/U NEXT TX. TIME. RSABADO. PROCEDURE: MR Brain without contrast. CLINICAL INDICATION: CVA TECHNIQUE: An MRI of the brain was performed on a 1.5 filiberto scanner utilizing the following sequences: Sagittal T1 weighted, axial T2 weighted, axial FLAIR, coronal GRE, and axial diffusion weighted with ADC mapping. COMPARISON: None FINDINGS: No evidence of restricted diffusion to suggest acute or early subacute ischemic infarction. There is no evidence of intracranial hemorrhage, mass effect, or midline shift. No extra-axial fluid collections are seen. No hypointense signal abnormalities are seen on the GRE images to suggest the presence of blood degradation products. Scattered nonspecific T2 signal hyperintensity foci in the subcortical and periventricular white matter compatible with sequelae of mild chronic microvascular ischemic injury. The brain parenchyma is otherwise normal in morphology with preservation of bray white differentiation and mild central cerebral volume loss. Age appropriate size of the ventricles and subarachnoid spaces. Minimal mucosal thickening in the frontal sinuses and ethmoid air cells. Bilateral lens surgery. The posterior fossa contents, brainstem, seventh - eighth cranial nerve complexes, pituitary axis, orbits, paranasal sinuses, and mastoid air cells are unremarkable. Normal flow voids are visible in the proximal intracranial arteries and dural sinuses, indicating patency. IMPRESSION: 1. No acute or early subacute ischemic infarction or intracranial hemorrhage. 2. Stable mild chronic microvascular ischemic disease and cerebral volume loss. 3. Stable mild paranasal sinuses disease. RPTAT:AAJJ Physician Marsha Date Time Electronically viewed and signed by Physician Marsha on 01/30/2017 00:27 KAYE/ CC: MONY GRIFFIN MD PSYCH Assessment and Plan Assessment/Diagnosis [place] I: SCHIZOAFFECTIVE DISORDER BY HX; DELIRIUM DUE TO MEDICAL CONDITION [place] II: DEFERED [place] III: PER RECORD [place] IV: MODERATE [place] V: GAF 35 Recommendation/Plan Medication Management PLEASE CONSIDER INCREASING SEROQUEL TO 300 MG POQHS AND RESTART ON ZOLFOT 50 MG POQD; FOR AGITAITON: ATIVAN 1-2 MG PO/IM/IV PRN Q 6 HRS AGITATION. ELIZABETH TODD Feb 08, 2017 09:20
[2017-02-08] MEDS: LACTOBACILLUS RHAMNOSUS CAP PO SCH ×2 (09:38→20:56)
[2017-02-08] MEDS: LACOSAMIDE (100 MG/10 ML PO SYR) PO SCH ×2 (09:38→20:57)
[2017-02-08] MEDS: DOCUSATE SODIUM 100 MG CAP PO SCH ×2 (09:38→20:57)
[2017-02-08] MEDS: POLYETHYLENE GLYCOL 17 GM PACKET PO SCH (09:38)
[2017-02-08] MEDS: GABAPENTIN 100 MG CAP PO SCH ×2 (09:39→20:57)
[2017-02-08] MEDS: SEVELAMER 800 MG TAB PO SCH ×3 (09:39→18:29)
[2017-02-08] MEDS: LISINOPRIL 5 MG TAB PO SCH (09:39)
[2017-02-08] MEDS: SERTRALINE 50 MG TAB PO SCH (09:49)
--- NOTE | 2017-02-08 09:52 | PN ---
DATE: 02/08/2017 SUBJECTIVE: The patient is stable, no acute events overnight. The patient is scheduled for dialysi s today. OBJECTIVE: VITAL SIGNS: Blood pressure 166/99, respirations 19, pulse 75, temperature 98.3. HEENT: Head is normocephalic. NECK: Supple. HEART: Regular rate. LUNGS: Show diminished breath sounds at the base. ABDOMEN: Soft, nontender to palpation, no rebound or guarding. EXTREMITIES: Negative for clubbing, cyanosis, no edema. DERMATOLOGIC: No rashes. MUSCULOSKELETAL: No joint effusions. NEUROLOGIC: No change in exam. MEDICATIONS: The patient's medications have been reviewed. LABORATORY DATA: Showed sodium 132, potassium ____, BUN 65, creatinine 12.74, phosphorus 6.1. Whit e count 6.2, hemoglobin 10.0, hematocrit 32.3, platelet count is 100. ASSESSMENT AND PLAN: 1. End-stage renal disease. The patient is scheduled for dialysis today. Will dialyze for 3 hours , 3K bath, calcium 2.5. 2. Hypokalemia, improved. Continue dialysis on a low-potassium bath. 3. Anemia. Continue to monitor hemoglobin and hematocrit levels. Continue Epogen. 4. Mineral bone disease. Monitor calcium and phosphorus levels. 5. Acute encephalopathy, etiology is toxic metabolic with underlying psychosis. Continue current m edical management. 6. Seizure disorder. Continue Depakote. 7. Sepsis, clinically improving. The patient completing antibiotic course. 8. Diabetes. Continue Accu-Cheks and insulin sliding scale. 9. Hypothyroidism. Continue Synthroid. 10. Psychosis Bipolar disorder. Continue follow up with psychiatry and neurology. Continue psycho tropic medication. 11. Cardiomyopathy. Continue medical management. Dictated By: KERI MEADE/LEAH Conf#: [id number] DID#: [id number]
--- NOTE | 2017-02-08 10:45 | CONS ---
Date/Time of Note Date/Time of Note DATE: 02/08/17 TIME: 10:43 Consult Date/Type/Reason Admit Date/Time Jan 20, 2017 at 15:31 Initial Consult Date 01/26/17 Type of Consultation: Neurology Reason for Consultation seizures, encephalopathy Ordering Provider: SCOT DÍAZ Subjective receiving dialysis no new complaints has fluctuating speech issues, today seems better complains of diffuse pains, tremors improved Objective Vital Signs Date Time Temp Pulse Resp B/P Pulse Ox O2 Delivery O2 Flow Rate FiO2 02/08/17 10:40 86 02/08/17 08:00 14 02/08/17 07:00 98.3 166/99 100 02/07/17 21:00 Room Air 02/06/17 15:15 2 Intake and Output 02/07/17 02/07/17 02/08/17 15:00 23:00 07:00 Intake Total 950 ml 400 ml Output Total 350 ml Balance 600 ml 400 ml Exam awake and alert appears stated age oriented to self, hospital at times has difficulty and hesitancy with his speech expressive aphasia with word finding difficulty, halting speech orofacial dyskinesias CN: MARIA DEL ROSARIO, blinks to threat EOMI no nystagmus no significant facial asymmetry has some tardive dyskinesia orofacial twitching Motor: tremors + asterixis unable to perform FTN jerking movement on right when attempting to raise his arms Reflexes symmetric throughout Results/Medications Result Diagram: 02/08/17 0655 02/08/17 0655 Results 24 hrs Laboratory Tests Test 02/07/17 12:14 02/07/17 13:30 02/07/17 18:23 02/07/17 20:05 Bedside Glucose 81 101 157 Sodium Level 134 L Potassium Level 4.9 Chloride Level 97 Carbon Dioxide Level 24 Anion Gap 18 H Blood Urea Nitrogen 49 #H Creatinine 11.42 #H Glucose Level 89 Calcium Level 9.3 Test 02/08/17 06:55 02/08/17 08:15 White Blood Count 6.2 Red Blood Count 3.49 L Hemoglobin 10.0 L Hematocrit 32.3 L Mean Corpuscular Volume 92.6 Mean Corpuscular Hemoglobin 28.7 L Mean Corpuscular Hemoglobin Concent 31.0 L Red Cell Distribution Width 16.7 H Platelet Count 100 L Mean Platelet Volume Neutrophils % 68.7 Lymphocytes % 13.3 L Monocytes % 8.9 Eosinophils % 8.0 H Basophils % 0.8 Nucleated Red Blood Cells % 0.0 Neutrophils # 4.2 Lymphocytes # 0.8 Monocytes # 0.6 Eosinophils # 0.5 Basophils # 0.1 Nucleated Red Blood Cells # 0.0 Sodium Level 132 L Potassium Level 4.9 Chloride Level 99 Carbon Dioxide Level 21 Anion Gap 17 H Blood Urea Nitrogen 55 H Creatinine 12.74 H Glucose Level 78 Calcium Level 9.2 Phosphorus Level 6.1 H Magnesium Level 2.4 Bedside Glucose 78 Medications Current Medications Aspirin (Halfprin) 81 mg DAILY PO Last administered on 02/05/17 08:12; Admin Dose 81 MG; Start 01/21/17 at 09:00; Status Future Hold Atorvastatin Calcium (Lipitor) 20 mg HS PO Last administered on 02/07/17 20:13 ; Admin Dose 20 MG; Start 01/20/17 at 21:00 Gabapentin (Neurontin) 100 mg BID PO Last administered on 02/08/17 09:39; Admin Dose 100 MG; Start 01/20/17 at 21:00 Lisinopril (Zestril) 2.5 mg DAILY PO Last administered on 02/08/17 09:39; Admin Dose 2.5 MG; Start 01/21/17 at 09:00 Insulin Glargine (Lantus) 17 unit DAILY@20 SC Last administered on 02/07/17 20 :11; Admin Dose 17 UNIT; Start 01/20/17 at 20:00 Miscellaneous Information 1 ea NOTE XX ; Start 01/20/17 at 17:30 Glucose (Glutose) 15 gm Q15M PRN PO DECREASED GLUCOSE; Start 01/20/17 at 17:30 Glucose (Glutose) 22.5 gm Q15M PRN PO DECREASED GLUCOSE; Start 01/20/17 at 17:30 Dextrose (D50w Syringe) 25 ml Q15M PRN IV DECREASED GLUCOSE; Start 01/20/17 at 17:30 Dextrose (D50w Syringe) 50 ml Q15M PRN IV DECREASED GLUCOSE; Start 01/20/17 at 17:30 Glucagon (Glucagen) 1 mg Q15M PRN IM DECREASED GLUCOSE; Start 01/20/17 at 17:30 Glucose (Glutose) 15 gm Q15M PRN BUCCAL DECREASED GLUCOSE; Start 01/20/17 at 17: 30 Diagnostic Test (Pha) (Accu-Chek) 1 ea 02 XX Last administered on 02/01/17 01: 17; Admin Dose 1 EA; Start 01/21/17 at 02:00 Zolpidem Tartrate (Ambien) 5 mg HS PRN PO INSOMNIA Last administered on 21:50; Admin Dose 5 MG; Start 01/20/17 at 23:30 Polyethylene Glycol (Miralax) 17 gm DAILY PO Last administered on 02/08/17 09: 38; Admin Dose 17 GM; Start 01/21/17 at 15:00 Docusate Sodium (Colace) 100 mg BID PO Last administered on 02/08/17 09:38; Admin Dose 100 MG; Start 01/21/17 at 15:00 Ondansetron HCl (Zofran Inj) 4 mg Q6H PRN IV NAUSEA AND/OR VOMITING Last administered on 01/26/17 20:52; Admin Dose 4 MG; Start 01/24/17 at 23:45 Lactobacillus Acidophilus/ Rhamnosus (Culturelle) 1 cap BID PO Last administered on 02/08/17 09:38; Admin Dose 1 CAP; Start 01/30/17 at 21:00 Acetaminophen (Tylenol Tab) 650 mg Q6H PRN PO PAIN AND OR ELEVATED TEMP; Start 02/04/17 at 17:00 Lacosamide (Vimpat Liq) 100 mg BID PO Last administered on 02/08/17 09:38; Admin Dose 100 MG; Start 02/05/17 at 12:30 Quetiapine Fumarate (Seroquel) 300 mg QHS PO ; Start 02/08/17 at 21:00 Sertraline HCl (Zoloft) 25 mg DAILY PO Last administered on 02/08/17 09:49; Admin Dose 25 MG; Start 02/08/17 at 09:30 Heparin Sodium (Porcine) (Heparin (5000 Units/0.5 ml)) 5,000 unit BID SC ; Start 02/08/17 at 21:00 Assessment/Plan Chief Complaint/Hosp Course 56 yo male ESRD, DM, hypothyroidism, ischemic CM admitted with pneumonia and encephalopathy with active metabolic issues. EEG: generalized bihemispheric background slowing with left central parietal epileptiform activity, which is consistent with encephalopathy with epileptiform activity. Depakote 750 mg ER was initiated last week, level was therapeutic however patient feels increasing jerking movements. Tremors are a potential side effect of Depakote and being on other antipsychotics and high doses of Seroquel may also worsen these movements. Encephalopathy secondary to toxic/metabolic issues underlying seizures, behavioral issues from psychiatric disease Recommendations: discontinue any medications that may lower seizures threshold ativan low dose prn for further prolonged seizure activity >2 mins. 0.1 mg/kg max dose 4 mg Vimpat 100 mg BID increase to 150 mg BID on 02/12 psychiatry consulted started Cogentin 2 mg BID continue frequent neuro checks psychiatry evaluation pending to adjust anti-psychotics, and potentially lower dose of Seroquel, treatment of tardive dyskinesia- started on cogentin PT/OT evaluation likely to require SNF will follow up again on Sunday if patient is still admitted, recommend increase Vimpat on Sunday to therapeutic dose 150 mg BID should follow up with neurology as outpatient and receive further EEG as outpatient to adjust meds Problems: MONY GRIFFIN MD Feb 08, 2017 10:45
--- NOTE | 2017-02-08 15:33 | CONS ---
Date/Time of Note Date/Time of Note DATE: 02/08/17 TIME: 15:24 Assessment/Plan Assessment/Plan Additional Assessment/Plan I will contact family member patient's CODE STATUS has been changed to DO NOT RESUSCITATE. Issues to be addressed would include ongoing level of care, POLST form and possible hospice referral. 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 Patient has numerous major comorbid medical problems including seizure disorder, delirium, hypothyroidism, bipolar disorder, type 2 diabetes. Patient is a non-historian asked to examine patient and speak to family members concerning goals of care. Patient has been seen by neurology consult workup consistent with CPM with Warnicke's encephalopathy. Cannot be obtained patient is encephalopathic Constitutional: no complaints Neurologic: confusion Psychological: confusion Past Medical History Medical History: diabetes, hypothyroid, other (End-stage renal disease on hemodialysis) Past Surgical History Past Surgical Hx: other Family History Significant Family History: other (Unknown) Social History Alcohol Use: heavy Smoking Status: Unknown if ever smoked Drug Use: other (Remote history of drug abuse) Exam/Review of Systems Vital Signs Vitals Vital Signs Date Time Temp Pulse Resp B/P Pulse Ox O2 Delivery O2 Flow Rate FiO2 02/08/17 14:44 162 02/08/17 11:22 97.9 19 148/84 96 02/07/17 21:00 Room Air 02/06/17 15:15 2 Intake and Output 02/07/17 02/07/17 02/08/17 15:00 23:00 07:00 Intake Total 950 ml 400 ml Output Total 350 ml Balance 600 ml 400 ml Exam Constitutional: non-verbal Head: atraumatic, normocephalic ENMT: nl external ears & nose, nl lips & teeth, nl nasal mucosa & septum Neck: non-tender, supple Respiratory: congested cough, crackles/rales Cardiovascular: nl pulses, regular rate and rhythm Gastrointestinal: nl liver, spleen, non-tender, soft Musculoskeletal: nl extremities to inspection, nl gait and stance Extremities: normal pulses Neurological: other (Cannot follow simple command, did not respond to simple verbal commands or tactile stimulation, not moving extremities in a purposeful manner) Results Result Diagram: 02/08/17 0655 02/08/17 0655 Results 24 hrs Laboratory Tests Test 02/07/17 18:23 02/07/17 20:05 02/08/17 06:55 02/08/17 08:15 Bedside Glucose 101 157 78 White Blood Count 6.2 Red Blood Count 3.49 L Hemoglobin 10.0 L Hematocrit 32.3 L Mean Corpuscular Volume 92.6 Mean Corpuscular Hemoglobin 28.7 L Mean Corpuscular Hemoglobin Concent 31.0 L Red Cell Distribution Width 16.7 H Platelet Count 100 L Mean Platelet Volume Neutrophils % 68.7 Lymphocytes % 13.3 L Monocytes % 8.9 Eosinophils % 8.0 H Basophils % 0.8 Nucleated Red Blood Cells % 0.0 Neutrophils # 4.2 Lymphocytes # 0.8 Monocytes # 0.6 Eosinophils # 0.5 Basophils # 0.1 Nucleated Red Blood Cells # 0.0 Sodium Level 132 L Potassium Level 4.9 Chloride Level 99 Carbon Dioxide Level 21 Anion Gap 17 H Blood Urea Nitrogen 55 H Creatinine 12.74 H Glucose Level 78 Calcium Level 9.2 Phosphorus Level 6.1 H Magnesium Level 2.4 Test 02/08/17 12:12 Bedside Glucose 103 Medications Medications Current Medications Aspirin (Halfprin) 81 mg DAILY PO Last administered on 02/05/17 08:12; Admin Dose 81 MG; Start 01/21/17 at 09:00; Status Future Hold Atorvastatin Calcium (Lipitor) 20 mg HS PO Last administered on 02/07/17 20:13 ; Admin Dose 20 MG; Start 01/20/17 at 21:00 Gabapentin (Neurontin) 100 mg BID PO Last administered on 02/08/17 09:39; Admin Dose 100 MG; Start 01/20/17 at 21:00 Lisinopril (Zestril) 2.5 mg DAILY PO Last administered on 02/08/17 09:39; Admin Dose 2.5 MG; Start 01/21/17 at 09:00 Insulin Glargine (Lantus) 17 unit DAILY@20 SC Last administered on 02/07/17 20 :11; Admin Dose 17 UNIT; Start 01/20/17 at 20:00 Miscellaneous Information 1 ea NOTE XX ; Start 01/20/17 at 17:30 Glucose (Glutose) 15 gm Q15M PRN PO DECREASED GLUCOSE; Start 01/20/17 at 17:30 Glucose (Glutose) 22.5 gm Q15M PRN PO DECREASED GLUCOSE; Start 01/20/17 at 17:30 Dextrose (D50w Syringe) 25 ml Q15M PRN IV DECREASED GLUCOSE; Start 01/20/17 at 17:30 Dextrose (D50w Syringe) 50 ml Q15M PRN IV DECREASED GLUCOSE; Start 01/20/17 at 17:30 Glucagon (Glucagen) 1 mg Q15M PRN IM DECREASED GLUCOSE; Start 01/20/17 at 17:30 Glucose (Glutose) 15 gm Q15M PRN BUCCAL DECREASED GLUCOSE; Start 01/20/17 at 17: 30 Diagnostic Test (Pha) (Accu-Chek) 1 ea 02 XX Last administered on 02/01/17 01: 17; Admin Dose 1 EA; Start 01/21/17 at 02:00 Zolpidem Tartrate (Ambien) 5 mg HS PRN PO INSOMNIA Last administered on 21:50; Admin Dose 5 MG; Start 01/20/17 at 23:30 Polyethylene Glycol (Miralax) 17 gm DAILY PO Last administered on 02/08/17 09: 38; Admin Dose 17 GM; Start 01/21/17 at 15:00 Docusate Sodium (Colace) 100 mg BID PO Last administered on 02/08/17 09:38; Admin Dose 100 MG; Start 01/21/17 at 15:00 Ondansetron HCl (Zofran Inj) 4 mg Q6H PRN IV NAUSEA AND/OR VOMITING Last administered on 01/26/17 20:52; Admin Dose 4 MG; Start 01/24/17 at 23:45 Lactobacillus Acidophilus/ Rhamnosus (Culturelle) 1 cap BID PO Last administered on 02/08/17 09:38; Admin Dose 1 CAP; Start 01/30/17 at 21:00 Acetaminophen (Tylenol Tab) 650 mg Q6H PRN PO PAIN AND OR ELEVATED TEMP; Start 02/04/17 at 17:00 Lacosamide (Vimpat Liq) 100 mg BID PO Last administered on 02/08/17 09:38; Admin Dose 100 MG; Start 02/05/17 at 12:30 Sertraline HCl (Zoloft) 25 mg DAILY PO Last administered on 02/08/17 09:49; Admin Dose 25 MG; Start 02/08/17 at 09:30 Heparin Sodium (Porcine) (Heparin (5000 Units/0.5 ml)) 5,000 unit BID SC ; Start 02/08/17 at 21:00 Quetiapine Fumarate (Seroquel) 150 mg QHS PO ; Start 02/08/17 at 21:00 GEE KIRBY Feb 08, 2017 15:33
--- NOTE | 2017-02-08 15:54 | CONS ---
Date/Time of Note Date/Time of Note DATE: 02/08/17 TIME: 15:54 Assessment/Plan Assessment/Plan Chief Complaint/Hosp Course Consultation in error... wrong patient ...please disregard Problems: Consultation Date/Type/Reason Admit Date/Time Jan 20, 2017 at 15:31 Initial Consult Date 02/07/17 Type of Consultation: Palliative care Referring Provider: SCOT DÍAZ Exam/Review of Systems Vital Signs Vitals Vital Signs Date Time Temp Pulse Resp B/P Pulse Ox O2 Delivery O2 Flow Rate FiO2 02/08/17 15:49 98.1 103 19 165/97 95 02/07/17 21:00 Room Air 02/06/17 15:15 2 Intake and Output 02/07/17 02/07/17 02/08/17 15:00 23:00 07:00 Intake Total 950 ml 400 ml Output Total 350 ml Balance 600 ml 400 ml Results Result Diagram: 02/08/17 0655 02/08/17 0655 Results 24 hrs Laboratory Tests Test 02/07/17 18:23 02/07/17 20:05 02/08/17 06:55 02/08/17 08:15 Bedside Glucose 101 157 78 White Blood Count 6.2 Red Blood Count 3.49 L Hemoglobin 10.0 L Hematocrit 32.3 L Mean Corpuscular Volume 92.6 Mean Corpuscular Hemoglobin 28.7 L Mean Corpuscular Hemoglobin Concent 31.0 L Red Cell Distribution Width 16.7 H Platelet Count 100 L Mean Platelet Volume Neutrophils % 68.7 Lymphocytes % 13.3 L Monocytes % 8.9 Eosinophils % 8.0 H Basophils % 0.8 Nucleated Red Blood Cells % 0.0 Neutrophils # 4.2 Lymphocytes # 0.8 Monocytes # 0.6 Eosinophils # 0.5 Basophils # 0.1 Nucleated Red Blood Cells # 0.0 Sodium Level 132 L Potassium Level 4.9 Chloride Level 99 Carbon Dioxide Level 21 Anion Gap 17 H Blood Urea Nitrogen 55 H Creatinine 12.74 H Glucose Level 78 Calcium Level 9.2 Phosphorus Level 6.1 H Magnesium Level 2.4 Test 02/08/17 12:12 Bedside Glucose 103 Medications Medications Current Medications Aspirin (Halfprin) 81 mg DAILY PO Last administered on 02/05/17t 08:12; Admin Dose 81 MG; Start 01/21/17 at 09:00; Status Future Hold Atorvastatin Calcium (Lipitor) 20 mg HS PO Last administered on 02/07/17 20:13 ; Admin Dose 20 MG; Start 01/20/17 at 21:00 Gabapentin (Neurontin) 100 mg BID PO Last administered on 02/08/17 09:39; Admin Dose 100 MG; Start 01/20/17 at 21:00 Lisinopril (Zestril) 2.5 mg DAILY PO Last administered on 02/08/17 09:39; Admin Dose 2.5 MG; Start 01/21/17 at 09:00 Insulin Glargine (Lantus) 17 unit DAILY@20 SC Last administered on 02/07/17 20 :11; Admin Dose 17 UNIT; Start 01/20/17 at 20:00 Miscellaneous Information 1 ea NOTE XX ; Start 01/20/17 at 17:30 Glucose (Glutose) 15 gm Q15M PRN PO DECREASED GLUCOSE; Start 01/20/17 at 17:30 Glucose (Glutose) 22.5 gm Q15M PRN PO DECREASED GLUCOSE; Start 01/20/17 at 17:30 Dextrose (D50w Syringe) 25 ml Q15M PRN IV DECREASED GLUCOSE; Start 01/20/17 at 17:30 Dextrose (D50w Syringe) 50 ml Q15M PRN IV DECREASED GLUCOSE; Start 01/20/17 at 17:30 Glucagon (Glucagen) 1 mg Q15M PRN IM DECREASED GLUCOSE; Start 01/20/17 at 17:30 Glucose (Glutose) 15 gm Q15M PRN BUCCAL DECREASED GLUCOSE; Start 01/20/17 at 17: 30 Diagnostic Test (Pha) (Accu-Chek) 1 ea 02 XX Last administered on 02/01/17 01: 17; Admin Dose 1 EA; Start 01/21/17 at 02:00 Zolpidem Tartrate (Ambien) 5 mg HS PRN PO INSOMNIA Last administered on 21:50; Admin Dose 5 MG; Start 01/20/17 at 23:30 Polyethylene Glycol (Miralax) 17 gm DAILY PO Last administered on 02/08/17 09: 38; Admin Dose 17 GM; Start 01/21/17 at 15:00 Docusate Sodium (Colace) 100 mg BID PO Last administered on 02/08/17 09:38; Admin Dose 100 MG; Start 01/21/17 at 15:00 Ondansetron HCl (Zofran Inj) 4 mg Q6H PRN IV NAUSEA AND/OR VOMITING Last administered on 01/26/17 20:52; Admin Dose 4 MG; Start 01/24/17 at 23:45 Lactobacillus Acidophilus/ Rhamnosus (Culturelle) 1 cap BID PO Last administered on 02/08/17 09:38; Admin Dose 1 CAP; Start 01/30/17 at 21:00 Acetaminophen (Tylenol Tab) 650 mg Q6H PRN PO PAIN AND OR ELEVATED TEMP; Start 02/04/17 at 17:00 Lacosamide (Vimpat Liq) 100 mg BID PO Last administered on 02/08/17 09:38; Admin Dose 100 MG; Start 02/05/17 at 12:30 Sertraline HCl (Zoloft) 25 mg DAILY PO Last administered on 02/08/17 09:49; Admin Dose 25 MG; Start 02/08/17 at 09:30 Heparin Sodium (Porcine) (Heparin (5000 Units/0.5 ml)) 5,000 unit BID SC ; Start 02/08/17 at 21:00 Quetiapine Fumarate (Seroquel) 150 mg QHS PO ; Start 02/08/17 at 21:00 GEE KIRBY Feb 08, 2017 15:54
[2017-02-08] MEDS: ZOLPIDEM 5 MG TAB PO PRN (20:56)
[2017-02-08] MEDS: QUETIAPINE 100 MG TAB PO SCH (20:57)
[2017-02-08] MEDS: ATORVASTATIN 20 MG TAB PO SCH (20:57)
[2017-02-08] MEDS: HEPARIN 5,000 UNIT/0.5 ML VIAL SC SCH (21:00)
[2017-02-08] MEDS ORDERED: QUETIAPINE 100 MG TAB PO SCH (21:00)
[2017-02-08] MEDS: INSULIN GLARGINE [LANtus] 3 ML PEN SC SCH (21:11)
[2017-02-08] MEDS: OXYCODONE/ACETAMINOPHEN (5/325) TAB PO PRN (21:50)
[2017-02-09] VITALS (12 sets, daily range): BP systolic 120–158; BP diastolic 62–93; PULSE 79–120; RESP 16–20
[2017-02-09 06:03] LABS: ADD SCAN DIFF NO
[2017-02-09] MEDS: LEVOTHYROXINE 150 MCG TAB PO SCH (06:40)
[2017-02-09 06:56] LABS: CREATININE 10.65 mg/dl (0.61-1.24); MAGNESIUM 2.5 mg/dl (1.7-2.5); POTASSIUM 4.9 mmol/L (3.5-5.1)
[2017-02-09] MEDS: INSULIN ASPART [NOVOLOG] 3 ML PEN SC SCH ×4 (07:55→20:27)
[2017-02-09 08:07] LABS: ABNORMAL IP MESSAGE 1; BASOPHIL # 0.1 10^3/ul (0.0-0.1); EOSINOPHILS # 0.5 10^3/ul (0.0-0.5); EOSINOPHILS % 8.3 % (0.0-7.0); HEMATOCRIT 34.1 % (42.0-52.0); HEMOGLOBIN 10.5 g/dl (14.0-18.0); LYMPHOCYTES # 0.9 10^3/ul (0.8-2.9); LYMPHOCYTES % 14.8 % (15.0-51.0); MEAN CORPUSCULAR HEMOGLOBIN 28.7 pg (29.0-33.0); MEAN CORPUSCULAR HGB CONC 30.8 g/dl (32.0-37.0); MEAN CORPUSCULAR VOLUME 93.2 fl (82.0-101.0); MONOCYTE # 0.7 10^3/ul (0.3-0.9); MONOCYTES % 11.4 % (0.0-11.0); NEUTROPHIL # 3.9 10^3/ul (1.6-7.5); NEUTROPHILS % 64.2 % (39.0-77.0); PLATELET COUNT 91 10^3/UL (140-415); RED BLOOD COUNT 3.66 10^6/ul (4.70-6.10); RED CELL DISTRIBUTION WIDTH 16.8 % (11.5-14.5); WHITE BLOOD COUNT 6.1 10^3/ul (4.8-10.8)
[2017-02-09] MEDS: GABAPENTIN 100 MG CAP PO SCH ×2 (08:35→20:32)
[2017-02-09] MEDS: LACTOBACILLUS RHAMNOSUS CAP PO SCH ×2 (08:35→20:32)
[2017-02-09] MEDS: SEVELAMER 800 MG TAB PO SCH ×3 (08:35→17:31)
[2017-02-09] MEDS: DOCUSATE SODIUM 100 MG CAP PO SCH ×2 (08:35→20:32)
[2017-02-09] MEDS: LISINOPRIL 5 MG TAB PO SCH (08:36)
[2017-02-09] MEDS: SERTRALINE 50 MG TAB PO SCH (08:36)
[2017-02-09] MEDS: POLYETHYLENE GLYCOL 17 GM PACKET PO SCH (08:37)
[2017-02-09] MEDS: HEPARIN 5,000 UNIT/0.5 ML VIAL SC SCH ×2 (08:45→20:33)
[2017-02-09] MEDS: LACOSAMIDE (100 MG/10 ML PO SYR) PO SCH ×2 (08:51→20:34)
--- NOTE | 2017-02-09 09:52 | PN ---
DATE: 02/09/2017 SUBJECTIVE: The patient had hemodialysis yesterday, tolerated it well without complications. OBJECTIVE: VITAL SIGNS: Blood pressure 148/89, pulse 96, respirations 18, temperature 98.6. HEENT: Head is normocephalic. NECK: Supple. HEART: Regular rate. LUNGS: Show diminished breath sounds at the bases. ABDOMEN: Soft, nontender to palpation. No rebound or guarding. EXTREMITIES: Negative for clubbing, cyanosis. No edema. DERMATOLOGIC: No rashes. MUSCULOSKELETAL: No joint effusions. NEUROLOGIC: No change in exam. MEDICATIONS: The patient's medications have been reviewed. LABORATORY DATA: Shows a white count 6.1, hemoglobin 10.5, hematocrit 34.1, platelet count is 91. Sodium 134, potassium 4.9, BUN 53, creatinine 10.65. ASSESSMENT AND PLAN: 1. End-stage renal disease. The patient had hemodialysis yesterday, tolerated it while. Plan for dialysis tomorrow. 2. Hyperkalemia, improved. Continue dialysis on a low potassium bath. 3. Anemia. Continue to monitor hemoglobin and hematocrit levels. Continue Epogen. 4. Mineral bone disorder. Continue to monitor calcium and phosphorus levels. 5. Encephalopathy. Etiology is likely metabolic with underlying psychosis. Continue current medic al management. 6. Seizure disorder. Continue current medical management. Follow up with neurology. 7. Sepsis, clinically improving. Continue current antibiotic regimen. 8. Diabetes. Continue Accu-Cheks and insulin sliding scale. 9. Hypothyroidism. Continue Synthroid. 10. Psychosis, bipolar disorder. Continue current medical management. 11. Cardiomyopathy. Continue medical management. Dictated By: KERI MEADE/LEAH Conf#: [id number] DID#: [id number]
--- NOTE | 2017-02-09 16:29 | PN ---
Date/Time of Note Date/Time of Note DATE: 02/09/17 TIME: 16:26 Assessment/Plan VTE Prophylaxis VTE Prophylaxis Intervention: heparin Lines/Catheters IV [facility] Type [facility]from [facility] Urinary Cath still in place: No Assessment/Plan Assessment/Plan 1. Acute encephalopathy, most probably toxic metabolic in origin from underlying sepsis versus from central nervous system disorder. The patient's mental status is improving. The patient is still impulsive. Per DPOA"s report, patient was diagnosed with similar recently in [place]. 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 Patient is unable to make his own clinical decisions at this time. 2. S/p Right-sided pneumonia with right-sided pleural effusion. 3. S/p Sepsis with underlying gram-positive bacteremia. 4. Seizure disorder. EEG confirming seizures. neurology managing / no further seizures so far on Vimpat 5. S/p Acute respiratory failure. Hypoxic. Most probably secondary to underlying pneumonia. Resolved. 6. End-stage renal disease on hemodialysis. Continue hemodialysis as per nephrology. 7. Cardiomyopathy with ejection fraction of 40% as per 2D echocardiogram done on 04/10/2016. Continue IGLESIA inhibitors. 8. Hypothyroidism. Continue Synthroid. 9. Bipolar disorder : seroquel dose reduced per neurology recs, Patient started on zoloft per psych 10. Dyslipidemia. Continue statins. 11. Type 2 diabetes mellitus. Off oral medications. On sliding scale insulin. Hemoglobin A1c 5.6. 12. Dysfunctional PermCath. s/p replacement 13. Fluid, electrolytes and nutrition. Carbohydrate controlled diet. 14. Deep venous thrombosis prophylaxis. Bilateral lower extremity sequential compression devices / add heparin 15. Normocytic hypochromic anemia. Iron panel shows iron deficiency. Will continue the patient on iron supplements. Plan. Patient has consented to SNF placement because of impulsive behavior and frequent falls. CM working on placement. Currently stable for d/c once placement is found. Subjective 24 Hr Interval Summary Free Text/Dictation No new issues / has consented to SNF placement Exam/Review of Systems Vital Signs Vitals Vital Signs Date Time Temp Pulse Resp B/P Pulse Ox O2 Delivery O2 Flow Rate FiO2 02/09/17 15:05 98.0 88 18 154/93 98 02/07/17 21:00 Room Air 02/06/17 15:15 2 Intake and Output 02/08/17 02/08/17 02/09/17 15:00 23:00 07:00 Intake Total 400 ml 400 ml 480 ml Output Total 3000 ml Balance -2600 ml 400 ml 480 ml Exam GENERAL: This is a slightly overweight -[place] male lying in bed in no apparent distress. HEENT: Head normocephalic and atraumatic. Eyes: Anicteric sclerae. Conjunctivae clear. ENT: Nasal septum is midline. Oral mucosa is dry. NECK: Supple. No JVD noticed. RESPIRATORY: Bilateral diminished breath sounds. No adventitious breath sounds heard. No use of accessory muscles of respiration. CARDIAC: Regular rate and rhythm. S1 and S2 heard. ABDOMEN: Soft, nontender and nondistended. Bowel sounds positive in all 4 quadrants. GENITOURINARY: Deferred. EXTREMITIES: No cyanosis, no clubbing, no edema. Peripheral pulses are palpable. NEUROLOGIC: The patient is awake and alert. Moves all 4 extremities. Oriented to self and place but still mildly confused Results Result Diagram: 02/09/17 0545 02/09/17 0545 Results 24 hrs Laboratory Tests Test 02/08/17 18:23 02/08/17 20:59 02/09/17 05:45 02/09/17 08:19 Bedside Glucose 118 135 91 White Blood Count 6.1 Red Blood Count 3.66 L Hemoglobin 10.5 L Hematocrit 34.1 L Mean Corpuscular Volume 93.2 Mean Corpuscular Hemoglobin 28.7 L Mean Corpuscular Hemoglobin Concent 30.8 L Red Cell Distribution Width 16.8 H Platelet Count 91 L Mean Platelet Volume Neutrophils % 64.2 Lymphocytes % 14.8 L Monocytes % 11.4 H Eosinophils % 8.3 H Basophils % 1.0 Nucleated Red Blood Cells % 0.0 Neutrophils # 3.9 Lymphocytes # 0.9 Monocytes # 0.7 Eosinophils # 0.5 Basophils # 0.1 Nucleated Red Blood Cells # 0.0 Sodium Level 134 L Potassium Level 4.9 Chloride Level 99 Carbon Dioxide Level 24 Anion Gap 16 Blood Urea Nitrogen 53 H Creatinine 10.65 #H Glucose Level 87 Calcium Level 9.0 Magnesium Level 2.5 Test 02/09/17 12:39 Bedside Glucose 82 Medications Medications Current Medications Aspirin (Halfprin) 81 mg DAILY PO Last administered on 02/05/17t 08:12; Admin Dose 81 MG; Start 01/21/17 at 09:00; Status Future Hold Atorvastatin Calcium (Lipitor) 20 mg HS PO Last administered on 02/08/17 20:57 ; Admin Dose 20 MG; Start 01/20/17 at 21:00 Gabapentin (Neurontin) 100 mg BID PO Last administered on 02/09/17 08:35; Admin Dose 100 MG; Start 01/20/17 at 21:00 Lisinopril (Zestril) 2.5 mg DAILY PO Last administered on 02/09/17 08:36; Admin Dose 2.5 MG; Start 01/21/17 at 09:00 Insulin Glargine (Lantus) 17 unit DAILY@20 SC Last administered on 02/08/17 21 :11; Admin Dose 17 UNIT; Start 01/20/17 at 20:00 Miscellaneous Information 1 ea NOTE XX ; Start 01/20/17 at 17:30 Glucose (Glutose) 15 gm Q15M PRN PO DECREASED GLUCOSE; Start 01/20/17 at 17:30 Glucose (Glutose) 22.5 gm Q15M PRN PO DECREASED GLUCOSE; Start 01/20/17 at 17:30 Dextrose (D50w Syringe) 25 ml Q15M PRN IV DECREASED GLUCOSE; Start 01/20/17 at 17:30 Dextrose (D50w Syringe) 50 ml Q15M PRN IV DECREASED GLUCOSE; Start 01/20/17 at 17:30 Glucagon (Glucagen) 1 mg Q15M PRN IM DECREASED GLUCOSE; Start 01/20/17 at 17:30 Glucose (Glutose) 15 gm Q15M PRN BUCCAL DECREASED GLUCOSE; Start 01/20/17 at 17: 30 Diagnostic Test (Pha) (Accu-Chek) 1 ea 02 XX Last administered on 02/01/17 01: 17; Admin Dose 1 EA; Start 01/21/17 at 02:00 Zolpidem Tartrate (Ambien) 5 mg HS PRN PO INSOMNIA Last administered on 20:56; Admin Dose 5 MG; Start 01/20/17 at 23:30 Polyethylene Glycol (Miralax) 17 gm DAILY PO Last administered on 02/09/17 08: 37; Admin Dose 17 GM; Start 01/21/17 at 15:00 Docusate Sodium (Colace) 100 mg BID PO Last administered on 02/09/17 08:35; Admin Dose 100 MG; Start 01/21/17 at 15:00 Ondansetron HCl (Zofran Inj) 4 mg Q6H PRN IV NAUSEA AND/OR VOMITING Last administered on 01/26/17 20:52; Admin Dose 4 MG; Start 01/24/17 at 23:45 Lactobacillus Acidophilus/ Rhamnosus (Culturelle) 1 cap BID PO Last administered on 02/09/17 08:35; Admin Dose 1 CAP; Start 01/30/17 at 21:00 Acetaminophen (Tylenol Tab) 650 mg Q6H PRN PO PAIN AND OR ELEVATED TEMP; Start 02/04/17 at 17:00 Lacosamide (Vimpat Liq) 100 mg BID PO Last administered on 02/09/17 08:51; Admin Dose 100 MG; Start 02/05/17 at 12:30 Sertraline HCl (Zoloft) 25 mg DAILY PO Last administered on 02/09/17 08:36; Admin Dose 25 MG; Start 02/08/17 at 09:30 Heparin Sodium (Porcine) (Heparin (5000 Units/0.5 ml)) 5,000 unit BID SC Last administered on 02/09/17 08:45; Admin Dose 5,000 UNIT; Start 02/08/17 at 21:00 Quetiapine Fumarate (Seroquel) 150 mg QHS PO Last administered on 02/08/17 20: 57; Admin Dose 150 MG; Start 02/08/17 at 21:00 Oxycodone/ Acetaminophen (Percocet (5/ 325)) 1 tab Q6H PRN PO PAIN Last administered on 02/08/17 21:50; Admin Dose 1 TAB; Start 02/08/17 at 21:30 ELIZABETH TODD Feb 09, 2017 16:29
[2017-02-09] MEDS: OXYCODONE/ACETAMINOPHEN (5/325) TAB PO PRN (17:39)
[2017-02-09] MEDS: ATORVASTATIN 20 MG TAB PO SCH (20:32)
[2017-02-09] MEDS: INSULIN GLARGINE [LANtus] 3 ML PEN SC SCH (20:33)
[2017-02-09] MEDS: QUETIAPINE 100 MG TAB PO SCH (21:48)
[2017-02-09] MEDS: ZOLPIDEM 5 MG TAB PO PRN (22:17)
[2017-02-10] VITALS (10 sets, daily range): BP systolic 92–142; BP diastolic 50–83; PULSE 59–100; RESP 18–19
[2017-02-10] MEDS: ACCUCHECK AT 2AM (Patients on SS coverage) XX SCH (01:22)
[2017-02-10 05:45] LABS: ADD SCAN DIFF NO
[2017-02-10 05:50] LABS: ABNORMAL IP MESSAGE 1; BASOPHIL # 0.1 10^3/ul (0.0-0.1); BASOPHILS % 0.7 % (0.0-2.0); EOSINOPHILS # 0.5 10^3/ul (0.0-0.5); EOSINOPHILS % 6.9 % (0.0-7.0); HEMATOCRIT 32.3 % (42.0-52.0); HEMOGLOBIN 9.8 g/dl (14.0-18.0); LYMPHOCYTES % 14.7 % (15.0-51.0); MEAN CORPUSCULAR HEMOGLOBIN 28.2 pg (29.0-33.0); MEAN CORPUSCULAR HGB CONC 30.3 g/dl (32.0-37.0); MEAN CORPUSCULAR VOLUME 93.1 fl (82.0-101.0); MONOCYTE # 0.7 10^3/ul (0.3-0.9); MONOCYTES % 9.7 % (0.0-11.0); NEUTROPHIL # 4.6 10^3/ul (1.6-7.5); NEUTROPHILS % 67.7 % (39.0-77.0); RED BLOOD COUNT 3.47 10^6/ul (4.70-6.10); WHITE BLOOD COUNT 6.8 10^3/ul (4.8-10.8)
[2017-02-10] MEDS: LEVOTHYROXINE 150 MCG TAB PO SCH (05:51)
[2017-02-10 05:58] LABS: PLATELET COUNT 61 10^3/UL (140-415)
[2017-02-10 06:11] LABS: CALCIUM 9.4 mg/dl (8.4-10.2); CREATININE 11.75 mg/dl (0.61-1.24); POTASSIUM 5.7 mmol/L (3.5-5.1)
[2017-02-10] MEDS: INSULIN ASPART [NOVOLOG] 3 ML PEN SC SCH ×4 (08:00→21:00)
[2017-02-10] MEDS: DOCUSATE SODIUM 100 MG CAP PO SCH ×2 (08:36→21:25)
[2017-02-10] MEDS: POLYETHYLENE GLYCOL 17 GM PACKET PO SCH (08:37)
[2017-02-10] MEDS: GABAPENTIN 100 MG CAP PO SCH ×2 (08:37→21:25)
[2017-02-10] MEDS: SEVELAMER 800 MG TAB PO SCH ×3 (08:37→17:30)
[2017-02-10] MEDS: HEPARIN 5,000 UNIT/0.5 ML VIAL SC SCH ×2 (08:37→21:48)
--- NOTE | 2017-02-10 08:37 | PN ---
Date/Time of Note Date/Time of Note DATE: 02/10/17 TIME: 08:33 Assessment/Plan VTE Prophylaxis VTE Prophylaxis Intervention: heparin Lines/Catheters [facility] Saline Lock Urinary Cath still in place: No Assessment/Plan Problems: (1) Hyperkalemia Status: Acute Comment: For hemodialysis today which will correct this (2) Metabolic encephalopathy Status: Acute Comment: This is largely resolved. This is a combination of his end-stage renal disease some degree of sepsis his seizure disorder and the schizoaffective disorder and off of medications. Please see tele-psych consultation (3) End stage renal disease on dialysis due to type 2 diabetes mellitus Status: Chronic Comment: Continue on hemodialysis. Approaching time for discharge. Please note this gentleman is a and gets his dialysis at the [facility] locally (4) Diabetes mellitus type 2 with complications Status: Chronic Comment: Add in Tradjenta and adjust the other insulins Qualifiers: Diabetes mellitus longterm insulin use: without longterm use Qualified Code: E11.8 - Type 2 diabetes mellitus with complication, without long-term current use of insulin (5) Seizure disorder Status: Chronic Comment: He is on antiseizure medications at this time neurology following (6) Systolic CHF with reduced left ventricular function, NYHA class 2 Status: Chronic Comment: He is on IGLESIA inhibitor at low-dose. Well compensated (7) Essential hypertension Status: Chronic Comment: Well-controlled on current medication regimen (8) Hyperlipidemia associated with type 2 diabetes mellitus Status: Chronic Comment: Continue statin therapy. (9) Hypothyroidism (acquired) Status: Chronic Comment: Continue replacement dose therapy. (10) Schizoaffective disorder Status: Chronic Comment: Please see the recommendations from the tele-psych consult. I have adjusted medication regimen in accordance with that. Qualifiers: Schizoaffective disorder type: bipolar Qualified Code: F25.0 - Schizoaffective disorder, bipolar type Subjective 24 Hr Interval Summary Free Text/Dictation Patient easily talk verbal. No specific complaints per Constitutional: no complaints Respiratory: no complaints Cardiovascular: no complaints Gastrointestinal: no complaints Genitourinary: no complaints Exam/Review of Systems Vital Signs Vitals Vital Signs Date Time Temp Pulse Resp B/P Pulse Ox O2 Delivery O2 Flow Rate FiO2 02/09/17 21:12 98.4 102 16 125/76 96 02/09/17 16:30 Room Air 02/06/17 15:15 2 Intake and Output 02/09/17 02/09/17 02/10/17 15:00 23:00 07:00 Intake Total 500 ml 400 ml Output Total 0 ml Balance 500 ml 400 ml Exam Constitutional: alert Neck: non-tender, supple Respiratory: clear to auscultation, normal air movement Cardiovascular: nl pulses, regular rate and rhythm Results Result Diagram: 02/10/17 0450 02/10/17 0450 Results 24 hrs Laboratory Tests Test 02/09/17 12:39 02/09/17 17:29 02/09/17 20:26 02/10/17 04:50 Bedside Glucose 82 131 112 White Blood Count 6.8 Red Blood Count 3.47 L Hemoglobin 9.8 L Hematocrit 32.3 L Mean Corpuscular Volume 93.1 Mean Corpuscular Hemoglobin 28.2 L Mean Corpuscular Hemoglobin Concent 30.3 L Red Cell Distribution Width 17.0 H Platelet Count 61 #L Mean Platelet Volume Neutrophils % 67.7 Lymphocytes % 14.7 L Monocytes % 9.7 Eosinophils % 6.9 Basophils % 0.7 Nucleated Red Blood Cells % 0.0 Neutrophils # 4.6 Lymphocytes # 1.0 Monocytes # 0.7 Eosinophils # 0.5 Basophils # 0.1 Nucleated Red Blood Cells # 0.0 Sodium Level 134 L Potassium Level 5.7 H Chloride Level 102 Carbon Dioxide Level 22 Anion Gap 16 Blood Urea Nitrogen 62 H Creatinine 11.75 H Glucose Level 84 Calcium Level 9.4 Test 02/10/17 08:25 Bedside Glucose 76 Medications Medications Current Medications Aspirin (Halfprin) 81 mg DAILY PO Last administered on 02/05/17 08:12; Admin Dose 81 MG; Start 01/21/17 at 09:00; Status Future Hold Atorvastatin Calcium (Lipitor) 20 mg HS PO Last administered on 02/09/17 20:32 ; Admin Dose 20 MG; Start 01/20/17 at 21:00 Gabapentin (Neurontin) 100 mg BID PO Last administered on 02/09/17 20:32; Admin Dose 100 MG; Start 01/20/17 at 21:00 Lisinopril (Zestril) 2.5 mg DAILY PO Last administered on 02/09/17 08:36; Admin Dose 2.5 MG; Start 01/21/17 at 09:00 Insulin Glargine (Lantus) 17 unit DAILY@20 SC Last administered on 02/09/17 20 :33; Admin Dose 17 UNIT; Start 01/20/17 at 20:00 Miscellaneous Information 1 ea NOTE XX ; Start 01/20/17 at 17:30 Glucose (Glutose) 15 gm Q15M PRN PO DECREASED GLUCOSE; Start 01/20/17 at 17:30 Glucose (Glutose) 22.5 gm Q15M PRN PO DECREASED GLUCOSE; Start 01/20/17 at 17:30 Dextrose (D50w Syringe) 25 ml Q15M PRN IV DECREASED GLUCOSE; Start 01/20/17 at 17:30 Dextrose (D50w Syringe) 50 ml Q15M PRN IV DECREASED GLUCOSE; Start 01/20/17 at 17:30 Glucagon (Glucagen) 1 mg Q15M PRN IM DECREASED GLUCOSE; Start 01/20/17 at 17:30 Glucose (Glutose) 15 gm Q15M PRN BUCCAL DECREASED GLUCOSE; Start 01/20/17 at 17: 30 Diagnostic Test (Pha) (Accu-Chek) 1 ea 02 XX Last administered on 02/01/17 01: 17; Admin Dose 1 EA; Start 01/21/17 at 02:00 Zolpidem Tartrate (Ambien) 5 mg HS PRN PO INSOMNIA Last administered on 22:17; Admin Dose 5 MG; Start 01/20/17 at 23:30 Polyethylene Glycol (Miralax) 17 gm DAILY PO Last administered on 02/09/17 08: 37; Admin Dose 17 GM; Start 01/21/17 at 15:00 Docusate Sodium (Colace) 100 mg BID PO Last administered on 02/09/17 20:32; Admin Dose 100 MG; Start 01/21/17 at 15:00 Ondansetron HCl (Zofran Inj) 4 mg Q6H PRN IV NAUSEA AND/OR VOMITING Last administered on 01/26/17 20:52; Admin Dose 4 MG; Start 01/24/17 at 23:45 Lactobacillus Acidophilus/ Rhamnosus (Culturelle) 1 cap BID PO Last administered on 02/09/17 20:32; Admin Dose 1 CAP; Start 01/30/17 at 21:00 Acetaminophen (Tylenol Tab) 650 mg Q6H PRN PO PAIN AND OR ELEVATED TEMP; Start 02/04/17 at 17:00 Lacosamide (Vimpat Liq) 100 mg BID PO Last administered on 02/09/17 20:34; Admin Dose 100 MG; Start 02/05/17 at 12:30 Heparin Sodium (Porcine) (Heparin (5000 Units/0.5 ml)) 5,000 unit BID SC Last administered on 02/09/17 20:33; Admin Dose 5,000 UNIT; Start 02/08/17 at 21:00 Oxycodone/ Acetaminophen (Percocet (5/ 325)) 1 tab Q6H PRN PO PAIN Last administered on 02/09/17 17:39; Admin Dose 1 TAB; Start 02/08/17 at 21:30 Quetiapine Fumarate (Seroquel) 200 mg QHS PO ; Start 02/10/17 at 21:00 Sertraline HCl (Zoloft) 50 mg DAILY PO ; Start 02/10/17 at 09:00 Linagliptin (Tradjenta) 5 mg DAILY PO ; Start 02/10/17 at 09:00 ZAKIA LORENZO MD Feb 10, 2017 08:37
[2017-02-10] MEDS: LACTOBACILLUS RHAMNOSUS CAP PO SCH ×2 (08:38→21:25)
[2017-02-10] MEDS: LACOSAMIDE (100 MG/10 ML PO SYR) PO SCH ×2 (08:38→21:25)
[2017-02-10] MEDS: LISINOPRIL 5 MG TAB PO SCH (08:38)
[2017-02-10] MEDS: SERTRALINE 50 MG TAB PO SCH (08:38)
[2017-02-10] MEDS: LINAGLIPTIN 5 MG TABLET PO SCH (08:39)
[2017-02-10] MEDS: OXYCODONE/ACETAMINOPHEN (5/325) TAB PO PRN ×2 (08:45→21:25)
--- NOTE | 2017-02-10 11:22 | PN ---
DATE: 02/10/2017 SUBJECTIVE: The patient is stable. No acute events overnight. The patient is scheduled for hemodi alysis today. No other events noted. OBJECTIVE: VITAL SIGNS: Blood pressure 129/64, respirations 18, pulse 82, temperature 98.0. HEENT: Head is normocephalic. NECK: Supple. HEART: Regular rate. LUNGS: Showed diminished breath sounds at the base. ABDOMEN: Soft, nontender to palpation. No rebound or guarding. EXTREMITIES: Negative for clubbing or cyanosis. No edema. DERMATOLOGIC: No rashes. MUSCULOSKELETAL: Have no joint effusion. NEUROLOGIC: No change in exam. MEDICATIONS: The patient's medications have been reviewed. LABORATORY DATA: Shows sodium 134, potassium 5.7, BUN 62, creatinine 11.75. White count 6.8, hemog lobin 9.8, hematocrit 32.3, platelet count is 61. ASSESSMENT AND PLAN: 1. End-stage renal disease. The patient is scheduled for dialysis today for 3 hours on a 2K bath, calcium 2.5. 2. Hypokalemia. Continue dialysis, a low potassium bath. Continue a low-potassium diet. 3. Anemia. Continue to monitor hemoglobin and hematocrit levels. 4. Mineral bone disorder. Continue to monitor calcium and phosphorus levels. 5. Encephalopathy. Etiology is likely multifactorial. Continue to monitor. 6. Seizure disorder. Continue the current medical management. 7. Sepsis. Clinically improving. Continue the current antibiotic regimen. 8. Diabetes. Continue Accu-Cheks and insulin sliding scale. 9. Hypothyroidism. Continue Synthroid. 10. Cardiomyopathy. Continue the current medical management. Dictated By: KERI MEADE/LEAH Conf#: [id number] DID#: [id number]
[2017-02-10] MEDS ORDERED: HEPARIN 1000 UNITS/ML 10 ML INJ CATHETER SCH (16:00)
[2017-02-10] MEDS: ATORVASTATIN 20 MG TAB PO SCH (21:25)
[2017-02-10] MEDS: QUETIAPINE 100 MG TAB PO SCH (21:25)
[2017-02-10] MEDS: INSULIN GLARGINE [LANtus] 3 ML PEN SC SCH (21:28)
[2017-02-11] VITALS (8 sets, daily range): BP systolic 109–156; BP diastolic 61–79; PULSE 77–81; RESP 18–19
[2017-02-11] MEDS: ACCUCHECK AT 2AM (Patients on SS coverage) XX SCH (02:00)
[2017-02-11] MEDS: OXYCODONE/ACETAMINOPHEN (5/325) TAB PO PRN ×2 (05:34→16:50)
[2017-02-11 05:42] LABS: ADD SCAN DIFF NO
[2017-02-11 05:50] LABS: BASOPHIL # 0.1 10^3/ul (0.0-0.1); BASOPHILS % 0.7 % (0.0-2.0); EOSINOPHILS # 0.5 10^3/ul (0.0-0.5); EOSINOPHILS % 5.7 % (0.0-7.0); HEMATOCRIT 31.5 % (42.0-52.0); HEMOGLOBIN 9.6 g/dl (14.0-18.0); LYMPHOCYTES % 11.9 % (15.0-51.0); MEAN CORPUSCULAR HEMOGLOBIN 28.9 pg (29.0-33.0); MEAN CORPUSCULAR HGB CONC 30.5 g/dl (32.0-37.0); MEAN CORPUSCULAR VOLUME 94.9 fl (82.0-101.0); MEAN PLATELET VOLUME 12.1 fl (7.4-10.4); MONOCYTE # 0.8 10^3/ul (0.3-0.9); MONOCYTES % 10.1 % (0.0-11.0); NEUTROPHIL # 5.8 10^3/ul (1.6-7.5); NEUTROPHILS % 71.2 % (39.0-77.0); PLATELET COUNT 119 10^3/UL (140-415); RED BLOOD COUNT 3.32 10^6/ul (4.70-6.10); WHITE BLOOD COUNT 8.1 10^3/ul (4.8-10.8)
[2017-02-11] MEDS: LEVOTHYROXINE 150 MCG TAB PO SCH (06:08)
[2017-02-11 06:24] LABS: CALCIUM 8.9 mg/dl (8.4-10.2); CREATININE 9.48 mg/dl (0.61-1.24); POTASSIUM 5.3 mmol/L (3.5-5.1)
[2017-02-11] MEDS: LACOSAMIDE (100 MG/10 ML PO SYR) PO SCH ×2 (08:48→20:24)
[2017-02-11] MEDS: GABAPENTIN 100 MG CAP PO SCH ×2 (08:48→20:25)
[2017-02-11] MEDS: LINAGLIPTIN 5 MG TABLET PO SCH (08:48)
[2017-02-11] MEDS: DOCUSATE SODIUM 100 MG CAP PO SCH ×2 (08:48→20:24)
[2017-02-11] MEDS: LACTOBACILLUS RHAMNOSUS CAP PO SCH ×2 (08:48→20:25)
[2017-02-11] MEDS: POLYETHYLENE GLYCOL 17 GM PACKET PO SCH (08:48)
[2017-02-11] MEDS: LISINOPRIL 5 MG TAB PO SCH ×2 (08:49→20:25)
[2017-02-11] MEDS: SERTRALINE 50 MG TAB PO SCH (08:50)
[2017-02-11] MEDS: HEPARIN 5,000 UNIT/0.5 ML VIAL SC SCH ×2 (08:51→20:24)
[2017-02-11] MEDS: INSULIN ASPART [NOVOLOG] 3 ML PEN SC SCH ×4 (09:42→20:25)
[2017-02-11] MEDS: SEVELAMER 800 MG TAB PO SCH ×3 (09:44→17:36)
--- NOTE | 2017-02-11 10:14 | PN ---
Date/Time of Note Date/Time of Note DATE: 02/11/17 TIME: 10:12 Assessment/Plan VTE Prophylaxis VTE Prophylaxis Intervention: LMWH Lines/Catheters [facility]from [facility] Saline Lock Urinary Cath still in place: No Assessment/Plan Problems: (1) Schizoaffective disorder Status: Chronic Comment: He appears to be slightly better today. May be a little fast for the change in medications to work but if he is improving he is improving. He is approaching time of discharge Qualifiers: Schizoaffective disorder type: bipolar Qualified Code: F25.0 - Schizoaffective disorder, bipolar type (2) Hypothyroidism (acquired) Status: Chronic Comment: Continue on replacement therapy (3) Hyperlipidemia associated with type 2 diabetes mellitus Status: Chronic Comment: Adequately controlled continue statin therapy (4) Essential hypertension Status: Chronic Comment: Adequately controlled. Please note he has had some decrease in blood pressure do at time of dialysis. It would be better to have him take his IGLESIA inhibitor at bedtime so that there is less effectiveness of it at that during the dialysis and therefore less interference (5) Systolic CHF with reduced left ventricular function, NYHA class 2 Status: Chronic Comment: Continue on treatment and stable (6) Seizure disorder Status: Chronic Comment: Quiescent while on medication therapy well-controlled (7) Diabetes mellitus type 2 with complications Status: Chronic Comment: Excellent control on current Qualifiers: Diabetes mellitus halfway insulin use: without termite inspector use Qualified Code: E11.8 - Type 2 diabetes mellitus with complication, without long-term current use of insulin (8) End stage renal disease on dialysis due to type 2 diabetes mellitus Status: Chronic Comment: As per nephrology. Dialysis in the morning and then he can be discharged (9) Metabolic encephalopathy Status: Resolved Comment: Resolved nicely Subjective 24 Hr Interval Summary Free Text/Dictation Patient reports he is feeling better starting to ambulate Constitutional: no complaints Respiratory: no complaints Cardiovascular: no complaints Gastrointestinal: no complaints Genitourinary: no complaints Exam/Review of Systems Vital Signs Vitals Vital Signs Date Time Temp Pulse Resp B/P Pulse Ox O2 Delivery O2 Flow Rate FiO2 02/11/17 07:30 98.3 83 18 133/75 98 02/09/17 16:30 Room Air Intake and Output 02/10/17 02/10/17 02/11/17 15:00 23:00 07:00 Intake Total 1420 ml 360 ml Output Total 2000 ml Balance -580 ml 360 ml Exam [place] -[place] male sitting in bed, at the side of the bed eating Constitutional: alert, oriented Neck: non-tender, supple Respiratory: clear to auscultation, normal air movement Cardiovascular: nl pulses, regular rate and rhythm Results Result Diagram: 02/11/17 0415 02/11/17 0415 Results 24 hrs Laboratory Tests Test 02/10/17 12:04 02/10/17 17:26 02/10/17 21:24 02/11/17 04:15 Bedside Glucose 125 118 114 White Blood Count 8.1 Red Blood Count 3.32 L Hemoglobin 9.6 L Hematocrit 31.5 L Mean Corpuscular Volume 94.9 Mean Corpuscular Hemoglobin 28.9 L Mean Corpuscular Hemoglobin Concent 30.5 L Red Cell Distribution Width 17.0 H Platelet Count 119 #L Mean Platelet Volume 12.1 H Neutrophils % 71.2 Lymphocytes % 11.9 L Monocytes % 10.1 Eosinophils % 5.7 Basophils % 0.7 Nucleated Red Blood Cells % 0.0 Neutrophils # 5.8 Lymphocytes # 1.0 Monocytes # 0.8 Eosinophils # 0.5 Basophils # 0.1 Nucleated Red Blood Cells # 0.0 Sodium Level 136 Potassium Level 5.3 H Chloride Level 102 Carbon Dioxide Level 26 Anion Gap 13 Blood Urea Nitrogen 47 #H Creatinine 9.48 #H Glucose Level 76 Calcium Level 8.9 Test 02/11/17 09:35 Bedside Glucose 78 Medications Medications Current Medications Aspirin (Halfprin) 81 mg DAILY PO Last administered on 02/05/17 08:12; Admin Dose 81 MG; Start 01/21/17 at 09:00; Status Future Hold Atorvastatin Calcium (Lipitor) 20 mg HS PO Last administered on 02/10/17 21:25 ; Admin Dose 20 MG; Start 01/20/17 at 21:00 Gabapentin (Neurontin) 100 mg BID PO Last administered on 02/11/17 08:48; Admin Dose 100 MG; Start 01/20/17 at 21:00 Miscellaneous Information 1 ea NOTE XX ; Start 01/20/17 at 17:30 Glucose (Glutose) 15 gm Q15M PRN PO DECREASED GLUCOSE; Start 01/20/17 at 17:30 Glucose (Glutose) 22.5 gm Q15M PRN PO DECREASED GLUCOSE; Start 01/20/17 at 17:30 Dextrose (D50w Syringe) 25 ml Q15M PRN IV DECREASED GLUCOSE; Start 01/20/17 at 17:30 Dextrose (D50w Syringe) 50 ml Q15M PRN IV DECREASED GLUCOSE; Start 01/20/17 at 17:30 Glucagon (Glucagen) 1 mg Q15M PRN IM DECREASED GLUCOSE; Start 01/20/17 at 17:30 Glucose (Glutose) 15 gm Q15M PRN BUCCAL DECREASED GLUCOSE; Start 01/20/17 at 17: 30 Diagnostic Test (Pha) (Accu-Chek) 1 ea 02 XX Last administered on 02/01/17 01: 17; Admin Dose 1 EA; Start 01/21/17 at 02:00 Zolpidem Tartrate (Ambien) 5 mg HS PRN PO INSOMNIA Last administered on 22:17; Admin Dose 5 MG; Start 01/20/17 at 23:30 Polyethylene Glycol (Miralax) 17 gm DAILY PO Last administered on 02/11/17 08: 48; Admin Dose 17 GM; Start 01/21/17 at 15:00 Docusate Sodium (Colace) 100 mg BID PO Last administered on 02/11/17 08:48; Admin Dose 100 MG; Start 01/21/17 at 15:00 Ondansetron HCl (Zofran Inj) 4 mg Q6H PRN IV NAUSEA AND/OR VOMITING Last administered on 01/26/17 20:52; Admin Dose 4 MG; Start 01/24/17 at 23:45 Lactobacillus Acidophilus/ Rhamnosus (Culturelle) 1 cap BID PO Last administered on 02/11/17 08:48; Admin Dose 1 CAP; Start 01/30/17 at 21:00 Acetaminophen (Tylenol Tab) 650 mg Q6H PRN PO PAIN AND OR ELEVATED TEMP; Start 02/04/17 at 17:00 Lacosamide (Vimpat Liq) 100 mg BID PO Last administered on 02/11/17 08:48; Admin Dose 100 MG; Start 02/05/17 at 12:30 Heparin Sodium (Porcine) (Heparin (5000 Units/0.5 ml)) 5,000 unit BID SC Last administered on 02/11/17 08:51; Admin Dose 5,000 UNIT; Start 02/08/17 at 21:00 Oxycodone/ Acetaminophen (Percocet (5/ 325)) 1 tab Q6H PRN PO PAIN Last administered on 02/11/17 05:34; Admin Dose 1 TAB; Start 02/08/17 at 21:30 Quetiapine Fumarate (Seroquel) 200 mg QHS PO Last administered on 02/10/17 21: 25; Admin Dose 200 MG; Start 02/10/17 at 21:00 Sertraline HCl (Zoloft) 50 mg DAILY PO Last administered on 02/11/17 08:50; Admin Dose 50 MG; Start 02/10/17 at 09:00 Linagliptin (Tradjenta) 5 mg DAILY PO Last administered on 02/11/17 08:48; Admin Dose 5 MG; Start 02/10/17 at 09:00 Insulin Glargine (Lantus) 12 unit DAILY@20 SC Last administered on 02/10/17 21 :28; Admin Dose 12 UNIT; Start 02/10/17 at 20:00 Lisinopril (Zestril) 2.5 mg QHS PO ; Start 02/11/17 at 21:00; Status ZAKIA DUMAS MD Feb 11, 2017 10:14
--- NOTE | 2017-02-11 15:18 | PN ---
DATE: 02/11/2017 SUBJECTIVE: The patient had hemodialysis yesterday and tolerated it well. OBJECTIVE: VITAL SIGNS: Blood pressure 133/75, respiration 18, pulse 83, temperature 98.3. HEENT: Head is normocephalic. NECK: Supple. HEART: Regular rate. LUNGS: Show diminished breath sounds at base. ABDOMEN: Soft, nontender to palpation without rebound or guarding. EXTREMITIES: Negative for clubbing, cyanosis, edema. DERMATOLOGIC: No rashes. MUSCULOSKELETAL: No joint effusions. NEUROLOGIC: No change in exam. MEDICATIONS: Reviewed. LABORATORY DATA: Sodium 136, potassium 5.3, BUN 47, creatinine 9.48. White count 8.1, hemoglobin 9 .6, hematocrit 31.5, platelet count is 190. ASSESSMENT AND PLAN: 1. End-stage renal disease. The patient had hemodialysis yesterday, tolerated well. Plan for dial ysis again today for solute clearance for the patient's hyperkalemia. 2. Hyperkalemia. Continue dialysis on a low potassium bath. Continue low-potassium diet. 3. Anemia. Continue to monitor hemoglobin and hematocrit levels. 4. Mineral bone disorder. Continue to monitor calcium and phosphorus levels. 5. Encephalopathy, etiology is multifactorial. Continue to monitor. 6. Seizure disorder. Continue current medical management. 7. Sepsis, clinically improving. Continue to monitor. 8. Diabetes. Continue Accu-Cheks and sliding scale. 9. Hypothyroidism. Continue Synthroid. 10. Cardiomyopathy. Continue medical management. Dictated By: KERI MEADE/LEAH Conf#: [id number] DID#: [id number]
[2017-02-11] MEDS: INSULIN GLARGINE [LANtus] 3 ML PEN SC SCH (20:23)
[2017-02-11] MEDS: QUETIAPINE 100 MG TAB PO SCH (20:25)
[2017-02-11] MEDS: ATORVASTATIN 20 MG TAB PO SCH (20:25)
[2017-02-12] VITALS (8 sets, daily range): BP systolic 103–130; BP diastolic 60–81; PULSE 81–101; RESP 18
[2017-02-12] MEDS: ACCUCHECK AT 2AM (Patients on SS coverage) XX SCH (02:32)
[2017-02-12] MEDS: LEVOTHYROXINE 150 MCG TAB PO SCH (06:32)
[2017-02-12 06:39] LABS: ADD SCAN DIFF NO
[2017-02-12 06:48] LABS: BASOPHIL # 0.1 10^3/ul (0.0-0.1); BASOPHILS % 0.6 % (0.0-2.0); EOSINOPHILS # 0.4 10^3/ul (0.0-0.5); EOSINOPHILS % 4.7 % (0.0-7.0); HEMATOCRIT 33.1 % (42.0-52.0); HEMOGLOBIN 10.1 g/dl (14.0-18.0); LYMPHOCYTES # 1.1 10^3/ul (0.8-2.9); LYMPHOCYTES % 12.6 % (15.0-51.0); MEAN CORPUSCULAR HEMOGLOBIN 28.7 pg (29.0-33.0); MEAN CORPUSCULAR HGB CONC 30.5 g/dl (32.0-37.0); MEAN PLATELET VOLUME 11.8 fl (7.4-10.4); MONOCYTE # 0.9 10^3/ul (0.3-0.9); MONOCYTES % 10.6 % (0.0-11.0); NEUTROPHIL # 6.1 10^3/ul (1.6-7.5); NEUTROPHILS % 71.3 % (39.0-77.0); PLATELET COUNT 129 10^3/UL (140-415); RED BLOOD COUNT 3.52 10^6/ul (4.70-6.10); WHITE BLOOD COUNT 8.6 10^3/ul (4.8-10.8)
[2017-02-12 07:15] LABS: CALCIUM 9.3 mg/dl (8.4-10.2); CREATININE 8.47 mg/dl (0.61-1.24); MAGNESIUM 2.2 mg/dl (1.7-2.5); PHOSPHORUS 4.1 mg/dl (2.5-4.9); POTASSIUM 5.2 mmol/L (3.5-5.1)
[2017-02-12] MEDS: INSULIN ASPART [NOVOLOG] 3 ML PEN SC SCH ×4 (08:00→20:56)
[2017-02-12] MEDS: LINAGLIPTIN 5 MG TABLET PO SCH (08:21)
[2017-02-12] MEDS: GABAPENTIN 100 MG CAP PO SCH ×2 (08:21→20:52)
[2017-02-12] MEDS: SERTRALINE 50 MG TAB PO SCH (08:21)
[2017-02-12] MEDS: SEVELAMER 800 MG TAB PO SCH ×3 (08:21→18:04)
[2017-02-12] MEDS: POLYETHYLENE GLYCOL 17 GM PACKET PO SCH (08:21)
[2017-02-12] MEDS: DOCUSATE SODIUM 100 MG CAP PO SCH ×2 (08:21→20:52)
[2017-02-12] MEDS: LACTOBACILLUS RHAMNOSUS CAP PO SCH ×2 (08:22→20:52)
[2017-02-12] MEDS: LACOSAMIDE (100 MG/10 ML PO SYR) PO SCH ×2 (08:22→20:55)
[2017-02-12] MEDS: HEPARIN 5,000 UNIT/0.5 ML VIAL SC SCH ×2 (08:23→20:55)
[2017-02-12] MEDS: OXYCODONE/ACETAMINOPHEN (5/325) TAB PO PRN (12:05)
--- NOTE | 2017-02-12 17:35 | PN ---
Date/Time of Note Date/Time of Note DATE: 02/12/17 TIME: 17:34 Assessment/Plan VTE Prophylaxis VTE Prophylaxis Intervention: SCD's Lines/Catheters [facility] Type (from [facility] Saline Lock Urinary Cath still in place: No Assessment/Plan Assessment/Plan 1. Acute encephalopathy, most probably toxic metabolic in origin from underlying sepsis versus from central nervous system disorder. The patient's mental status is improving. The patient is still impulsive. Per DPOA"s report, patient was diagnosed with similar recently in [place]. 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 Patient is unable to make his own clinical decisions at this time. 2. S/p Right-sided pneumonia with right-sided pleural effusion. 3. S/p Sepsis with underlying gram-positive bacteremia. 4. Seizure disorder. EEG confirming seizures. neurology managing / no further seizures so far on Vimpat 5. S/p Acute respiratory failure. Hypoxic. Most probably secondary to underlying pneumonia. Resolved. 6. End-stage renal disease on hemodialysis. Continue hemodialysis as per nephrology. 7. Cardiomyopathy with ejection fraction of 40% as per 2D echocardiogram done on 04/10/2016. Continue IGLESIA inhibitors. 8. Hypothyroidism. Continue Synthroid. 9. Bipolar disorder : seroquel dose reduced per neurology recs, Patient started on zoloft per psych 10. Dyslipidemia. Continue statins. 11. Type 2 diabetes mellitus. Off oral medications. On sliding scale insulin. Hemoglobin A1c 5.6. 12. Dysfunctional PermCath. s/p replacement 13. Fluid, electrolytes and nutrition. Carbohydrate controlled diet. 14. Deep venous thrombosis prophylaxis. Bilateral lower extremity sequential compression devices / add heparin 15. Normocytic hypochromic anemia. Iron panel shows iron deficiency. Will continue the patient on iron supplements. Plan. Patient has consented to SNF placement because of impulsive behavior and frequent falls. CM working on placement. Currently stable for d/c once placement is found. Subjective 24 Hr Interval Summary Free Text/Dictation no acute events overnight, BP stable Exam/Review of Systems Vital Signs Vitals Vital Signs Date Time Temp Pulse Resp B/P Pulse Ox O2 Delivery O2 Flow Rate FiO2 02/12/17 12:40 94 02/12/17 12:40 19 02/12/17 08:15 98.8 128/78 97 02/09/17 16:30 Room Air Intake and Output 02/11/17 02/11/1717 15:00 23:00 07:00 Intake Total 400 ml 720 ml 560 ml Output Total 3400 ml Balance -3000 ml 720 ml 560 ml Exam GENERAL: This is a slightly overweight -[place] male lying in bed in no apparent distress. HEENT: Head normocephalic and atraumatic. Eyes: Anicteric sclerae. Conjunctivae clear. ENT: Nasal septum is midline. Oral mucosa is dry. NECK: Supple. No JVD noticed. RESPIRATORY: Bilateral diminished breath sounds. No adventitious breath sounds heard. No use of accessory muscles of respiration. CARDIAC: Regular rate and rhythm. S1 and S2 heard. ABDOMEN: Soft, nontender and nondistended. Bowel sounds positive in all 4 quadrants. GENITOURINARY: Deferred. EXTREMITIES: No cyanosis, no clubbing, no edema. Peripheral pulses are palpable. NEUROLOGIC: The patient is awake and alert. Moves all 4 extremities. Oriented to self and place but still mildly confused Results Result Diagram: 02/12/17 0548 02/12/17 0548 Results 24 hrs Laboratory Tests Test 02/11/17 20:20 02/12/17 01:57 02/12/17 05:48 02/12/17 08:19 Bedside Glucose 97 81 72 White Blood Count 8.6 Red Blood Count 3.52 L Hemoglobin 10.1 L Hematocrit 33.1 L Mean Corpuscular Volume 94.0 Mean Corpuscular Hemoglobin 28.7 L Mean Corpuscular Hemoglobin Concent 30.5 L Red Cell Distribution Width 17.0 H Platelet Count 129 L Mean Platelet Volume 11.8 H Neutrophils % 71.3 Lymphocytes % 12.6 L Monocytes % 10.6 Eosinophils % 4.7 Basophils % 0.6 Nucleated Red Blood Cells % 0.0 Neutrophils # 6.1 Lymphocytes # 1.1 Monocytes # 0.9 Eosinophils # 0.4 Basophils # 0.1 Nucleated Red Blood Cells # 0.0 Sodium Level 135 Potassium Level 5.2 H Chloride Level 98 Carbon Dioxide Level 28 Anion Gap 14 Blood Urea Nitrogen 42 H Creatinine 8.47 H Glucose Level 77 Calcium Level 9.3 Phosphorus Level 4.1 Magnesium Level 2.2 Test 02/12/17 11:55 Bedside Glucose 93 Medications Medications Current Medications Aspirin (Halfprin) 81 mg DAILY PO Last administered on 02/05/17t 08:12; Admin Dose 81 MG; Start 01/21/17 at 09:00; Status Future Hold Atorvastatin Calcium (Lipitor) 20 mg HS PO Last administered on 02/11/17 20:25 ; Admin Dose 20 MG; Start 01/20/17 at 21:00 Gabapentin (Neurontin) 100 mg BID PO Last administered on 02/12/17 08:21; Admin Dose 100 MG; Start 01/20/17 at 21:00 Miscellaneous Information 1 ea NOTE XX ; Start 01/20/17 at 17:30 Glucose (Glutose) 15 gm Q15M PRN PO DECREASED GLUCOSE; Start 01/20/17 at 17:30 Glucose (Glutose) 22.5 gm Q15M PRN PO DECREASED GLUCOSE; Start 01/20/17 at 17:30 Dextrose (D50w Syringe) 25 ml Q15M PRN IV DECREASED GLUCOSE; Start 01/20/17 at 17:30 Dextrose (D50w Syringe) 50 ml Q15M PRN IV DECREASED GLUCOSE; Start 01/20/17 at 17:30 Glucagon (Glucagen) 1 mg Q15M PRN IM DECREASED GLUCOSE; Start 01/20/17 at 17:30 Glucose (Glutose) 15 gm Q15M PRN BUCCAL DECREASED GLUCOSE; Start 01/20/17 at 17: 30 Diagnostic Test (Pha) (Accu-Chek) 1 ea 02 XX Last administered on 02/12/17 02: 32; Admin Dose 1 EA; Start 01/21/17 at 02:00 Zolpidem Tartrate (Ambien) 5 mg HS PRN PO INSOMNIA Last administered on 22:17; Admin Dose 5 MG; Start 01/20/17 at 23:30 Polyethylene Glycol (Miralax) 17 gm DAILY PO Last administered on 02/12/17 08: 21; Admin Dose 17 GM; Start 01/21/17 at 15:00 Docusate Sodium (Colace) 100 mg BID PO Last administered on 02/12/17 08:21; Admin Dose 100 MG; Start 01/21/17 at 15:00 Ondansetron HCl (Zofran Inj) 4 mg Q6H PRN IV NAUSEA AND/OR VOMITING Last administered on 01/26/17 20:52; Admin Dose 4 MG; Start 01/24/17 at 23:45 Lactobacillus Acidophilus/ Rhamnosus (Culturelle) 1 cap BID PO Last administered on 02/12/17 08:22; Admin Dose 1 CAP; Start 01/30/17 at 21:00 Acetaminophen (Tylenol Tab) 650 mg Q6H PRN PO PAIN AND OR ELEVATED TEMP; Start 02/04/17 at 17:00 Lacosamide (Vimpat Liq) 100 mg BID PO Last administered on 02/12/17 08:22; Admin Dose 100 MG; Start 02/05/17 at 12:30 Heparin Sodium (Porcine) (Heparin (5000 Units/0.5 ml)) 5,000 unit BID SC Last administered on 02/12/17 08:23; Admin Dose 5,000 UNIT; Start 02/08/17 at 21:00 Oxycodone/ Acetaminophen (Percocet (5/ 325)) 1 tab Q6H PRN PO PAIN Last administered on 02/12/17 12:05; Admin Dose 1 TAB; Start 02/08/17 at 21:30 Quetiapine Fumarate (Seroquel) 200 mg QHS PO Last administered on 02/11/17 20: 25; Admin Dose 200 MG; Start 02/10/17 at 21:00 Sertraline HCl (Zoloft) 50 mg DAILY PO Last administered on 02/12/17 08:21; Admin Dose 50 MG; Start 02/10/17 at 09:00 Linagliptin (Tradjenta) 5 mg DAILY PO Last administered on 02/12/17 08:21; Admin Dose 5 MG; Start 02/10/17 at 09:00 Insulin Glargine (Lantus) 12 unit DAILY@20 SC Last administered on 02/11/17 20 :23; Admin Dose 12 UNIT; Start 02/10/17 at 20:00 Lisinopril (Zestril) 2.5 mg QHS PO Last administered on 02/11/17 20:25; Admin Dose 2.5 MG; Start 02/11/17 at 21:00 LINDSEY HERNANDEZ MD Feb 12, 2017 17:35
[2017-02-12] MEDS: QUETIAPINE 100 MG TAB PO SCH (20:52)
[2017-02-12] MEDS: ATORVASTATIN 20 MG TAB PO SCH (20:52)
[2017-02-12] MEDS: LISINOPRIL 5 MG TAB PO SCH (20:56)
[2017-02-12] MEDS: INSULIN GLARGINE [LANtus] 3 ML PEN SC SCH (20:58)
[2017-02-13] MEDS: ACCUCHECK AT 2AM (Patients on SS coverage) XX SCH (02:19)
[2017-02-13] MEDS: LEVOTHYROXINE 150 MCG TAB PO SCH (06:27)
[2017-02-13 07:49] VITALS: BP 128/74; RESP 18
[2017-02-13] MEDS: INSULIN ASPART [NOVOLOG] 3 ML PEN SC SCH ×4 (08:00→21:00)
[2017-02-13] MEDS: DOCUSATE SODIUM 100 MG CAP PO SCH ×2 (09:00→21:03)
[2017-02-13] MEDS: SEVELAMER 800 MG TAB PO SCH ×3 (09:00→17:07)
[2017-02-13] MEDS: LINAGLIPTIN 5 MG TABLET PO SCH (09:00)
[2017-02-13] MEDS: GABAPENTIN 100 MG CAP PO SCH ×2 (09:00→21:03)
[2017-02-13] MEDS: POLYETHYLENE GLYCOL 17 GM PACKET PO SCH (09:01)
[2017-02-13] MEDS: OXYCODONE/ACETAMINOPHEN (5/325) TAB PO PRN ×2 (09:01→17:10)
[2017-02-13] MEDS: LACTOBACILLUS RHAMNOSUS CAP PO SCH ×2 (09:01→21:03)
[2017-02-13] MEDS: SERTRALINE 50 MG TAB PO SCH (09:01)
[2017-02-13] MEDS: LACOSAMIDE (100 MG/10 ML PO SYR) PO SCH ×2 (09:02→21:04)
[2017-02-13] MEDS: HEPARIN 5,000 UNIT/0.5 ML VIAL SC SCH ×2 (09:10→21:07)
--- NOTE | 2017-02-13 11:26 | CONS ---
Date/Time of Note Date/Time of Note DATE: 02/13/17 TIME: 11:25 Consult Date/Type/Reason Admit Date/Time Jan 20, 2017 at 15:31 Initial Consult Date 01/26/17 Type of Consultation: Neurology Reason for Consultation seizure management Ordering Provider: SCOT DÍAZ Subjective patient in the shower unable to examine increased Vimpat to 150 mg BID tolerated well per nurse no further seizures Objective Vital Signs Date Time Temp Pulse Resp B/P Pulse Ox O2 Delivery O2 Flow Rate FiO2 02/13/17 07:49 99.3 75 18 128/74 96 02/09/17 16:30 Room Air Intake and Output 02/12/17 02/12/17 02/13/17 15:00 23:00 07:00 Intake Total 300 ml 880 ml 360 ml Output Total 2300 ml Balance -2000 ml 880 ml 360 ml Results/Medications Result Diagram: 02/12/17 0548 02/12/17 0548 Results 24 hrs Laboratory Tests Test 02/12/17 11:55 02/12/17 18:03 02/12/17 20:54 02/13/17 01:30 Bedside Glucose 93 137 107 89 Test 02/13/17 08:51 Bedside Glucose 96 Medications Current Medications Aspirin (Halfprin) 81 mg DAILY PO Last administered on 02/05/17 08:12; Admin Dose 81 MG; Start 01/21/17 at 09:00; Status Future Hold Atorvastatin Calcium (Lipitor) 20 mg HS PO Last administered on 02/12/17 20:52 ; Admin Dose 20 MG; Start 01/20/17 at 21:00 Gabapentin (Neurontin) 100 mg BID PO Last administered on 02/13/17 09:00; Admin Dose 100 MG; Start 01/20/17 at 21:00 Miscellaneous Information 1 ea NOTE XX ; Start 01/20/17 at 17:30 Glucose (Glutose) 15 gm Q15M PRN PO DECREASED GLUCOSE; Start 01/20/17 at 17:30 Glucose (Glutose) 22.5 gm Q15M PRN PO DECREASED GLUCOSE; Start 01/20/17 at 17:30 Dextrose (D50w Syringe) 25 ml Q15M PRN IV DECREASED GLUCOSE; Start 01/20/17 at 17:30 Dextrose (D50w Syringe) 50 ml Q15M PRN IV DECREASED GLUCOSE; Start 01/20/17 at 17:30 Glucagon (Glucagen) 1 mg Q15M PRN IM DECREASED GLUCOSE; Start 01/20/17 at 17:30 Glucose (Glutose) 15 gm Q15M PRN BUCCAL DECREASED GLUCOSE; Start 01/20/17 at 17: 30 Diagnostic Test (Pha) (Accu-Chek) 1 ea 02 XX Last administered on 02/13/17 02: 19; Admin Dose 1 EA; Start 01/21/17 at 02:00 Zolpidem Tartrate (Ambien) 5 mg HS PRN PO INSOMNIA Last administered on 22:17; Admin Dose 5 MG; Start 01/20/17 at 23:30 Polyethylene Glycol (Miralax) 17 gm DAILY PO Last administered on 02/13/17 09: 01; Admin Dose 17 GM; Start 01/21/17 at 15:00 Docusate Sodium (Colace) 100 mg BID PO Last administered on 02/13/17 09:00; Admin Dose 100 MG; Start 01/21/17 at 15:00 Ondansetron HCl (Zofran Inj) 4 mg Q6H PRN IV NAUSEA AND/OR VOMITING Last administered on 01/26/17 20:52; Admin Dose 4 MG; Start 01/24/17 at 23:45 Lactobacillus Acidophilus/ Rhamnosus (Culturelle) 1 cap BID PO Last administered on 02/13/17 09:01; Admin Dose 1 CAP; Start 01/30/17 at 21:00 Acetaminophen (Tylenol Tab) 650 mg Q6H PRN PO PAIN AND OR ELEVATED TEMP; Start 02/04/17 at 17:00 Heparin Sodium (Porcine) (Heparin (5000 Units/0.5 ml)) 5,000 unit BID SC Last administered on 02/13/17 09:10; Admin Dose 5,000 UNIT; Start 02/08/17 at 21:00 Oxycodone/ Acetaminophen (Percocet (5/ 325)) 1 tab Q6H PRN PO PAIN Last administered on 02/13/17 09:01; Admin Dose 1 TAB; Start 02/08/17 at 21:30 Quetiapine Fumarate (Seroquel) 200 mg QHS PO Last administered on 02/12/17 20: 52; Admin Dose 200 MG; Start 02/10/17 at 21:00 Sertraline HCl (Zoloft) 50 mg DAILY PO Last administered on 02/13/17 09:01; Admin Dose 50 MG; Start 02/10/17 at 09:00 Linagliptin (Tradjenta) 5 mg DAILY PO Last administered on 02/13/17 09:00; Admin Dose 5 MG; Start 02/10/17 at 09:00 Insulin Glargine (Lantus) 12 unit DAILY@20 SC Last administered on 02/12/17 20 :58; Admin Dose 12 UNIT; Start 02/10/17 at 20:00 Lisinopril (Zestril) 2.5 mg QHS PO Last administered on 02/12/17 20:56; Admin Dose 2.5 MG; Start 02/11/17 at 21:00 Lacosamide (Vimpat Liq) 150 mg BID PO Last administered on 02/13/17 09:02; Admin Dose 150 MG; Start 02/13/17 at 09:00 Assessment/Plan Chief Complaint/Hosp Course Vimpat increased to 150 mg BID will attempt to follow up again tomorrow Problems: MONY GRIFFIN MD Feb 13, 2017 11:25
--- NOTE | 2017-02-13 17:57 | PN ---
Date/Time of Note Date/Time of Note DATE: 02/13/17 TIME: 17:55 Assessment/Plan VTE Prophylaxis VTE Prophylaxis Intervention: heparin, SCD's Lines/Catheters [facility] Urinary Cath still in place: No Assessment/Plan Assessment/Plan 1. Acute encephalopathy, most probably toxic metabolic in origin from underlying sepsis versus from central nervous system disorder. The patient's mental status is improving. 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 Patient is unable to make his own clinical decisions at this time. 2. S/p Right-sided pneumonia with right-sided pleural effusion. 3. S/p Sepsis with underlying gram-positive bacteremia. 4. Seizure disorder. EEG confirming seizures. neurology managing / no further seizures so far on Vimpat 5. S/p Acute respiratory failure. Hypoxic. Most probably secondary to underlying pneumonia. Resolved. 6. End-stage renal disease on hemodialysis. Continue hemodialysis as per nephrology. 7. Cardiomyopathy with ejection fraction of 40% as per 2D echocardiogram done on 04/10/2016. Continue IGLESIA inhibitors. 8. Hypothyroidism. Continue Synthroid. 9. Bipolar disorder : seroquel dose reduced per neurology recs, Patient started on zoloft per psych 10. Dyslipidemia. Continue statins. 11. Type 2 diabetes mellitus. Off oral medications. On sliding scale insulin. Hemoglobin A1c 5.6. 12. Dysfunctional PermCath. s/p replacement 13. Fluid, electrolytes and nutrition. Carbohydrate controlled diet. 14. Deep venous thrombosis prophylaxis. Bilateral lower extremity sequential compression devices / add heparin 15. Normocytic hypochromic anemia. Iron panel shows iron deficiency. Will continue the patient on iron supplements. Plan. SNF placement Awaiting placement Exam/Review of Systems Vital Signs Vitals Vital Signs Date Time Temp Pulse Resp B/P Pulse Ox O2 Delivery O2 Flow Rate FiO2 02/13/17 07:49 99.3 75 18 128/74 96 02/09/17 16:30 Room Air Intake and Output 02/12/17 02/12/17 02/13/17 15:00 23:00 07:00 Intake Total 300 ml 880 ml 360 ml Output Total 2300 ml Balance -2000 ml 880 ml 360 ml Exam GENERAL: This is a slightly overweight -[place] male lying in bed in no apparent distress. HEENT: Head normocephalic and atraumatic. Eyes: Anicteric sclerae. Conjunctivae clear. ENT: Nasal septum is midline. Oral mucosa is dry. NECK: Supple. No JVD noticed. RESPIRATORY: Bilateral diminished breath sounds. No adventitious breath sounds heard. No use of accessory muscles of respiration. CARDIAC: Regular rate and rhythm. S1 and S2 heard. ABDOMEN: Soft, nontender and nondistended. Bowel sounds positive in all 4 quadrants. GENITOURINARY: Deferred. EXTREMITIES: No cyanosis, no clubbing, no edema. Peripheral pulses are palpable. NEUROLOGIC: The patient is awake and alert. Moves all 4 extremities. Oriented to self and place but still mildly confused Results Result Diagram: 02/12/17 0548 02/12/17 0548 Results 24 hrs Laboratory Tests Test 02/12/17 18:03 02/12/17 20:54 02/13/17 01:30 02/13/17 08:51 Bedside Glucose 137 107 89 96 Test 02/13/17 12:23 02/13/17 12:25 02/13/17 17:09 Bedside Glucose 111 128 107 Medications Medications Current Medications Aspirin (Halfprin) 81 mg DAILY PO Last administered on 02/05/17 08:12; Admin Dose 81 MG; Start 01/21/17 at 09:00; Status Future Hold Atorvastatin Calcium (Lipitor) 20 mg HS PO Last administered on 02/12/17 20:52 ; Admin Dose 20 MG; Start 01/20/17 at 21:00 Gabapentin (Neurontin) 100 mg BID PO Last administered on 02/13/17 09:00; Admin Dose 100 MG; Start 01/20/17 at 21:00 Miscellaneous Information 1 ea NOTE XX ; Start 01/20/17 at 17:30 Glucose (Glutose) 15 gm Q15M PRN PO DECREASED GLUCOSE; Start 01/20/17 at 17:30 Glucose (Glutose) 22.5 gm Q15M PRN PO DECREASED GLUCOSE; Start 01/20/17 at 17:30 Dextrose (D50w Syringe) 25 ml Q15M PRN IV DECREASED GLUCOSE; Start 01/20/17 at 17:30 Dextrose (D50w Syringe) 50 ml Q15M PRN IV DECREASED GLUCOSE; Start 01/20/17 at 17:30 Glucagon (Glucagen) 1 mg Q15M PRN IM DECREASED GLUCOSE; Start 01/20/17 at 17:30 Glucose (Glutose) 15 gm Q15M PRN BUCCAL DECREASED GLUCOSE; Start 01/20/17 at 17: 30 Diagnostic Test (Pha) (Accu-Chek) 1 ea 02 XX Last administered on 02/13/17 02: 19; Admin Dose 1 EA; Start 01/21/17 at 02:00 Zolpidem Tartrate (Ambien) 5 mg HS PRN PO INSOMNIA Last administered on 22:17; Admin Dose 5 MG; Start 01/20/17 at 23:30 Polyethylene Glycol (Miralax) 17 gm DAILY PO Last administered on 02/13/17 09: 01; Admin Dose 17 GM; Start 01/21/17 at 15:00 Docusate Sodium (Colace) 100 mg BID PO Last administered on 02/13/17 09:00; Admin Dose 100 MG; Start 01/21/17 at 15:00 Ondansetron HCl (Zofran Inj) 4 mg Q6H PRN IV NAUSEA AND/OR VOMITING Last administered on 01/26/17 20:52; Admin Dose 4 MG; Start 01/24/17 at 23:45 Lactobacillus Acidophilus/ Rhamnosus (Culturelle) 1 cap BID PO Last administered on 02/13/17 09:01; Admin Dose 1 CAP; Start 01/30/17 at 21:00 Acetaminophen (Tylenol Tab) 650 mg Q6H PRN PO PAIN AND OR ELEVATED TEMP; Start 02/04/17 at 17:00 Heparin Sodium (Porcine) (Heparin (5000 Units/0.5 ml)) 5,000 unit BID SC Last administered on 02/13/17 09:10; Admin Dose 5,000 UNIT; Start 02/08/17 at 21:00 Oxycodone/ Acetaminophen (Percocet (5/ 325)) 1 tab Q6H PRN PO PAIN Last administered on 02/13/17 17:10; Admin Dose 1 TAB; Start 02/08/17 at 21:30 Quetiapine Fumarate (Seroquel) 200 mg QHS PO Last administered on 02/12/17 20: 52; Admin Dose 200 MG; Start 02/10/17 at 21:00 Sertraline HCl (Zoloft) 50 mg DAILY PO Last administered on 02/13/17 09:01; Admin Dose 50 MG; Start 02/10/17 at 09:00 Linagliptin (Tradjenta) 5 mg DAILY PO Last administered on 02/13/17 09:00; Admin Dose 5 MG; Start 02/10/17 at 09:00 Insulin Glargine (Lantus) 12 unit DAILY@20 SC Last administered on 02/12/17 20 :58; Admin Dose 12 UNIT; Start 02/10/17 at 20:00 Lisinopril (Zestril) 2.5 mg QHS PO Last administered on 02/12/17 20:56; Admin Dose 2.5 MG; Start 02/11/17 at 21:00 Lacosamide (Vimpat Liq) 150 mg BID PO Last administered on 02/13/17 09:02; Admin Dose 150 MG; Start 02/13/17 at 09:00 LINDSEY HERNANDEZ MD Feb 13, 2017 17:57
[2017-02-13 20:13] VITALS: BP 111/63; RESP 18
[2017-02-13] MEDS: QUETIAPINE 100 MG TAB PO SCH (21:02)
[2017-02-13] MEDS: ATORVASTATIN 20 MG TAB PO SCH (21:03)
[2017-02-13] MEDS: LISINOPRIL 5 MG TAB PO SCH (21:04)
[2017-02-13] MEDS: INSULIN GLARGINE [LANtus] 3 ML PEN SC SCH (21:06)
[2017-02-13] MEDS: ZOLPIDEM 5 MG TAB PO PRN (22:49)
[2017-02-14] VITALS (9 sets, daily range): BP systolic 76–142; BP diastolic 44–75; PULSE 79–88; RESP 19–20
[2017-02-14] MEDS: OXYCODONE/ACETAMINOPHEN (5/325) TAB PO PRN ×4 (00:06→20:18)
[2017-02-14] MEDS: ACCUCHECK AT 2AM (Patients on SS coverage) XX SCH (02:00)
[2017-02-14] MEDS: LEVOTHYROXINE 150 MCG TAB PO SCH (06:13)
[2017-02-14] MEDS: INSULIN ASPART [NOVOLOG] 3 ML PEN SC SCH ×4 (08:00→20:29)
[2017-02-14] MEDS: SEVELAMER 800 MG TAB PO SCH ×3 (08:09→17:44)
[2017-02-14] MEDS: DOCUSATE SODIUM 100 MG CAP PO SCH ×2 (08:38→21:42)
[2017-02-14] MEDS: GABAPENTIN 100 MG CAP PO SCH ×2 (08:38→21:41)
[2017-02-14] MEDS: POLYETHYLENE GLYCOL 17 GM PACKET PO SCH (08:38)
[2017-02-14] MEDS: SERTRALINE 50 MG TAB PO SCH (08:38)
[2017-02-14] MEDS: LINAGLIPTIN 5 MG TABLET PO SCH (08:39)
[2017-02-14] MEDS: HEPARIN 5,000 UNIT/0.5 ML VIAL SC SCH ×2 (08:39→21:44)
[2017-02-14] MEDS: LACTOBACILLUS RHAMNOSUS CAP PO SCH ×2 (08:39→21:41)
[2017-02-14] MEDS: LACOSAMIDE (100 MG/10 ML PO SYR) PO SCH ×2 (08:39→21:41)
--- NOTE | 2017-02-14 11:49 | CONS ---
Date/Time of Note Date/Time of Note DATE: 02/14/17 TIME: 11:44 Consult Date/Type/Reason Admit Date/Time Jan 20, 2017 at 15:31 Initial Consult Date 01/26/17 Type of Consultation: Neurology Reason for Consultation seizures, encephalopathy Ordering Provider: SCOT DÍAZ Subjective no further seizures tolerating Vimpat 150 mg BID well no tremors reported or further speech issues Objective Vital Signs Date Time Temp Pulse Resp B/P Pulse Ox O2 Delivery O2 Flow Rate FiO2 02/14/17 10:15 85 16 02/14/17 08:09 97.9 123/67 100 Intake and Output 02/13/17 02/13/17 02/14/17 15:00 23:00 07:00 Intake Total 1200 ml 600 ml Balance 1200 ml 600 ml Exam awake and alert oriented x3 calm and cooperative mood affect intact able to express himself well can repeat phrases seen texting and playing games on his phone no further ataxia or asterixis issues CN: MARIA DEL ROSARIO, VFF, EOMI no nystagmus V1-3 intact no facial asymmetry Motor lifting both arms antigravity as well as legs Coordination no ataxia Results/Medications Result Diagram: 02/12/17 0548 02/12/17 0548 Results 24 hrs Laboratory Tests Test 02/13/17 12:23 02/13/17 12:25 02/13/17 17:09 02/13/17 20:58 Bedside Glucose 111 128 107 133 Test 02/14/17 08:07 Bedside Glucose 74 Medications Current Medications Aspirin (Halfprin) 81 mg DAILY PO Last administered on 02/05/17 08:12; Admin Dose 81 MG; Start 01/21/17 at 09:00; Status Future Hold Atorvastatin Calcium (Lipitor) 20 mg HS PO Last administered on 02/13/17 21:03 ; Admin Dose 20 MG; Start 01/20/17 at 21:00 Gabapentin (Neurontin) 100 mg BID PO Last administered on 02/14/17 08:38; Admin Dose 100 MG; Start 01/20/17 at 21:00 Miscellaneous Information 1 ea NOTE XX ; Start 01/20/17 at 17:30 Glucose (Glutose) 15 gm Q15M PRN PO DECREASED GLUCOSE; Start 01/20/17 at 17:30 Glucose (Glutose) 22.5 gm Q15M PRN PO DECREASED GLUCOSE; Start 01/20/17 at 17:30 Dextrose (D50w Syringe) 25 ml Q15M PRN IV DECREASED GLUCOSE; Start 01/20/17 at 17:30 Dextrose (D50w Syringe) 50 ml Q15M PRN IV DECREASED GLUCOSE; Start 01/20/17 at 17:30 Glucagon (Glucagen) 1 mg Q15M PRN IM DECREASED GLUCOSE; Start 01/20/17 at 17:30 Glucose (Glutose) 15 gm Q15M PRN BUCCAL DECREASED GLUCOSE; Start 01/20/17 at 17: 30 Diagnostic Test (Pha) (Accu-Chek) 1 ea 02 XX Last administered on 02/13/17 02: 19; Admin Dose 1 EA; Start 01/21/17 at 02:00 Zolpidem Tartrate (Ambien) 5 mg HS PRN PO INSOMNIA Last administered on 22:49; Admin Dose 5 MG; Start 01/20/17 at 23:30 Polyethylene Glycol (Miralax) 17 gm DAILY PO Last administered on 02/14/17 08: 38; Admin Dose 17 GM; Start 01/21/17 at 15:00 Docusate Sodium (Colace) 100 mg BID PO Last administered on 02/14/17 08:38; Admin Dose 100 MG; Start 01/21/17 at 15:00 Ondansetron HCl (Zofran Inj) 4 mg Q6H PRN IV NAUSEA AND/OR VOMITING Last administered on 01/26/17 20:52; Admin Dose 4 MG; Start 01/24/17 at 23:45 Lactobacillus Acidophilus/ Rhamnosus (Culturelle) 1 cap BID PO Last administered on 02/14/17 08:39; Admin Dose 1 CAP; Start 01/30/17 at 21:00 Acetaminophen (Tylenol Tab) 650 mg Q6H PRN PO PAIN AND OR ELEVATED TEMP; Start 02/04/17 at 17:00 Heparin Sodium (Porcine) (Heparin (5000 Units/0.5 ml)) 5,000 unit BID SC Last administered on 02/13/17 21:07; Admin Dose 5,000 UNIT; Start 02/08/17 at 21:00 Oxycodone/ Acetaminophen (Percocet (5/ 325)) 1 tab Q6H PRN PO PAIN Last administered on 02/14/17 07:06; Admin Dose 1 TAB; Start 02/08/17 at 21:30 Quetiapine Fumarate (Seroquel) 200 mg QHS PO Last administered on 02/13/17 21: 02; Admin Dose 200 MG; Start 02/10/17 at 21:00 Sertraline HCl (Zoloft) 50 mg DAILY PO Last administered on 02/14/17 08:38; Admin Dose 50 MG; Start 02/10/17 at 09:00 Linagliptin (Tradjenta) 5 mg DAILY PO Last administered on 02/14/17 08:39; Admin Dose 5 MG; Start 02/10/17 at 09:00 Insulin Glargine (Lantus) 12 unit DAILY@20 SC Last administered on 02/13/17 21 :06; Admin Dose 12 UNIT; Start 02/10/17 at 20:00 Lisinopril (Zestril) 2.5 mg QHS PO Last administered on 02/13/17 21:04; Admin Dose 2.5 MG; Start 02/11/17 at 21:00 Lacosamide (Vimpat Liq) 150 mg BID PO Last administered on 02/14/17 08:39; Admin Dose 150 MG; Start 02/13/17 at 09:00 Assessment/Plan Chief Complaint/Hosp Course 56 yo male ESRD, DM, hypothyroidism, ischemic CM admitted with pneumonia and encephalopathy with active metabolic issues. EEG: generalized bihemispheric background slowing with left central parietal epileptiform activity, which is consistent with encephalopathy with epileptiform activity. Depakote 750 mg ER was started and stopped due to intolerance. Encephalopathy secondary to toxic/metabolic issues underlying seizures, behavioral issues from psychiatric disease Recommendations: discontinue any medications that may lower seizures threshold ativan low dose prn for further prolonged seizure activity >2 mins. 0.1 mg/kg max dose 4 mg Continue on Vimpat 150 mg BID psychiatry consulted started Cogentin 2 mg BID continue frequent neuro checks needs outpatient psychiatry follow up and outpatient neurology follow up continue therapies planning for discharge, advised patient he needs outpatient follow up for seizure management will sign off, thank for your involving me in his care Problems: MONY GRIFFIN MD Feb 14, 2017 11:49
--- NOTE | 2017-02-14 12:14 | PN ---
Date/Time of Note Date/Time of Note DATE: 02/14/17 TIME: 12:11 Assessment/Plan Lines/Catheters IV Catheter Type (from [facility]): [facility] Urinary Cath still in place: No Assessment/Plan Assessment/Plan 1. End-stage renal disease. Plan for dialysis again today for solute clearance 2. Hyperkalemia. Continue dialysis on a low potassium bath. Continue low- potassium diet. 3. Anemia. Continue to monitor hemoglobin and hematocrit levels. cont epogen 4. Mineral bone disorder. Continue to monitor calcium and phosphorus levels. cont phos binders 5. Encephalopathy, etiology is multifactorial. Continue to monitor. 6. Seizure disorder. Continue current medical management. 7. Sepsis, clinically improving. Continue to monitor. 8. Diabetes. Continue Accu-Cheks and sliding scale. 9. Hypothyroidism. Continue Synthroid. 10. Cardiomyopathy. Continue medical management. Subjective 24 Hr Interval Summary Free Text/Dictation The patient is stable, no distress Exam/Review of Systems Vital Signs Vitals Vital Signs Date Time Temp Pulse Resp B/P Pulse Ox O2 Delivery O2 Flow Rate FiO2 02/14/17 10:15 85 16 02/14/17 08:09 97.9 123/67 100 Intake and Output 02/13/17 02/13/17 02/14/17 15:00 23:00 07:00 Intake Total 1200 ml 600 ml Balance 1200 ml 600 ml Exam HEENT: Head is normocephalic. NECK: Supple. HEART: Regular rate. LUNGS: Show diminished breath sounds at base. ABDOMEN: Soft, nontender to palpation without rebound or guarding. EXTREMITIES: Negative for clubbing, cyanosis, edema. DERMATOLOGIC: No rashes. MUSCULOSKELETAL: No joint effusions. NEUROLOGIC: No change in exam. Results Result Diagram: 02/12/17 0548 02/12/17 0548 Results 24 hrs Laboratory Tests Test 02/13/17 12:23 02/13/17 12:25 02/13/17 17:09 02/13/17 20:58 Bedside Glucose 111 128 107 133 Test 02/14/17 08:07 Bedside Glucose 74 Medications Medications Current Medications Aspirin (Halfprin) 81 mg DAILY PO Last administered on 02/05/17 08:12; Admin Dose 81 MG; Start 01/21/17 at 09:00; Status Future Hold Atorvastatin Calcium (Lipitor) 20 mg HS PO Last administered on 02/13/17 21:03 ; Admin Dose 20 MG; Start 01/20/17 at 21:00 Gabapentin (Neurontin) 100 mg BID PO Last administered on 02/14/17 08:38; Admin Dose 100 MG; Start 01/20/17 at 21:00 Miscellaneous Information 1 ea NOTE XX ; Start 01/20/17 at 17:30 Glucose (Glutose) 15 gm Q15M PRN PO DECREASED GLUCOSE; Start 01/20/17 at 17:30 Glucose (Glutose) 22.5 gm Q15M PRN PO DECREASED GLUCOSE; Start 01/20/17 at 17:30 Dextrose (D50w Syringe) 25 ml Q15M PRN IV DECREASED GLUCOSE; Start 01/20/17 at 17:30 Dextrose (D50w Syringe) 50 ml Q15M PRN IV DECREASED GLUCOSE; Start 01/20/17 at 17:30 Glucagon (Glucagen) 1 mg Q15M PRN IM DECREASED GLUCOSE; Start 01/20/17 at 17:30 Glucose (Glutose) 15 gm Q15M PRN BUCCAL DECREASED GLUCOSE; Start 01/20/17 at 17: 30 Diagnostic Test (Pha) (Accu-Chek) 1 ea 02 XX Last administered on 02/13/17 02: 19; Admin Dose 1 EA; Start 01/21/17 at 02:00 Zolpidem Tartrate (Ambien) 5 mg HS PRN PO INSOMNIA Last administered on 22:49; Admin Dose 5 MG; Start 01/20/17 at 23:30 Polyethylene Glycol (Miralax) 17 gm DAILY PO Last administered on 02/14/17 08: 38; Admin Dose 17 GM; Start 01/21/17 at 15:00 Docusate Sodium (Colace) 100 mg BID PO Last administered on 02/14/17 08:38; Admin Dose 100 MG; Start 01/21/17 at 15:00 Ondansetron HCl (Zofran Inj) 4 mg Q6H PRN IV NAUSEA AND/OR VOMITING Last administered on 01/26/17 20:52; Admin Dose 4 MG; Start 01/24/17 at 23:45 Lactobacillus Acidophilus/ Rhamnosus (Culturelle) 1 cap BID PO Last administered on 02/14/17 08:39; Admin Dose 1 CAP; Start 01/30/17 at 21:00 Acetaminophen (Tylenol Tab) 650 mg Q6H PRN PO PAIN AND OR ELEVATED TEMP; Start 02/04/17 at 17:00 Heparin Sodium (Porcine) (Heparin (5000 Units/0.5 ml)) 5,000 unit BID SC Last administered on 02/13/17 21:07; Admin Dose 5,000 UNIT; Start 02/08/17 at 21:00 Oxycodone/ Acetaminophen (Percocet (5/ 325)) 1 tab Q6H PRN PO PAIN Last administered on 02/14/17 07:06; Admin Dose 1 TAB; Start 02/08/17 at 21:30 Quetiapine Fumarate (Seroquel) 200 mg QHS PO Last administered on 02/13/17 21: 02; Admin Dose 200 MG; Start 02/10/17 at 21:00 Sertraline HCl (Zoloft) 50 mg DAILY PO Last administered on 02/14/17 08:38; Admin Dose 50 MG; Start 02/10/17 at 09:00 Linagliptin (Tradjenta) 5 mg DAILY PO Last administered on 02/14/17 08:39; Admin Dose 5 MG; Start 02/10/17 at 09:00 Insulin Glargine (Lantus) 12 unit DAILY@20 SC Last administered on 02/13/17 21 :06; Admin Dose 12 UNIT; Start 02/10/17 at 20:00 Lisinopril (Zestril) 2.5 mg QHS PO Last administered on 02/13/17 21:04; Admin Dose 2.5 MG; Start 02/11/17 at 21:00 Lacosamide (Vimpat Liq) 150 mg BID PO Last administered on 02/14/17 08:39; Admin Dose 150 MG; Start 02/13/17 at 09:00 KERI DE SOUZA DO Feb 14, 2017 12:14
--- NOTE | 2017-02-14 13:09 | PN ---
Date/Time of Note Date/Time of Note DATE: 02/14/17 TIME: 13:06 Assessment/Plan VTE Prophylaxis VTE Prophylaxis Intervention: SCD's Lines/Catheters IV Catheter Type (from [facility]): Saline Lock Urinary Cath still in place: No Assessment/Plan Assessment/Plan 1. Acute encephalopathy, - Toxic metabolic encephalopathy 2. S/p Right-sided pneumonia with right-sided pleural effusion. 3. S/p Sepsis with underlying gram-positive bacteremia. 4. Seizure disorder. EEG confirming seizures. neurology managing / no further seizures so far on Vimpat 5. S/p Acute respiratory failure. Hypoxic. Most probably secondary to underlying pneumonia. Resolved. 6. End-stage renal disease on hemodialysis. Continue hemodialysis as per nephrology. 7. Cardiomyopathy with ejection fraction of 40% as per 2D echocardiogram done on 04/10/2016. Continue IGLESIA inhibitors. 8. Hypothyroidism. Continue Synthroid. 9. Bipolar disorder : zoloft, seroquel 10. Dyslipidemia. Continue statins. 11. Type 2 diabetes mellitus. Off oral medications. On sliding scale insulin. Hemoglobin A1c 5.6. 12. Dysfunctional PermCath. s/p replacement 13. Fluid, electrolytes and nutrition. Carbohydrate controlled diet. 14. Deep venous thrombosis prophylaxis. Bilateral lower extremity sequential compression devices / add heparin 15. Normocytic hypochromic anemia. Iron panel shows iron deficiency. Will continue the patient on iron supplements. Plan. Awaiting placement vs home discharge depending on discussion with DPOA and Patient both Subjective 24 Hr Interval Summary Free Text/Dictation no acute events overnight, HD MWF Exam/Review of Systems Vital Signs Vitals Vital Signs Date Time Temp Pulse Resp B/P Pulse Ox O2 Delivery O2 Flow Rate FiO2 02/14/17 10:15 85 16 02/14/17 08:09 97.9 123/67 100 Intake and Output 02/13/17 02/13/17 02/14/17 15:00 23:00 07:00 Intake Total 1200 ml 600 ml Balance 1200 ml 600 ml Exam GENERAL: This is a slightly overweight -Filipino male lying in bed in no apparent distress. HEENT: Head normocephalic and atraumatic. Eyes: Anicteric sclerae. Conjunctivae clear. ENT: Nasal septum is midline. Oral mucosa is dry. NECK: Supple. No JVD noticed. RESPIRATORY: Bilateral diminished breath sounds. No adventitious breath sounds heard. No use of accessory muscles of respiration. CARDIAC: Regular rate and rhythm. S1 and S2 heard. ABDOMEN: Soft, nontender and nondistended. Bowel sounds positive in all 4 quadrants. GENITOURINARY: Deferred. EXTREMITIES: No cyanosis, no clubbing, no edema. Peripheral pulses are palpable. NEUROLOGIC: The patient is awake and alert. Moves all 4 extremities. Oriented to self and place but still mildly confused Results Result Diagram: 02/12/17 0548 02/12/17 0548 Results 24 hrs Laboratory Tests Test 02/13/17 17:09 02/13/17 20:58 02/14/17 08:07 02/14/17 12:09 Bedside Glucose 107 133 74 101 Medications Medications Current Medications Aspirin (Halfprin) 81 mg DAILY PO Last administered on 02/05/17 08:12; Admin Dose 81 MG; Start 01/21/17 at 09:00; Status Future Hold Atorvastatin Calcium (Lipitor) 20 mg HS PO Last administered on 02/13/17 21:03 ; Admin Dose 20 MG; Start 01/20/17 at 21:00 Gabapentin (Neurontin) 100 mg BID PO Last administered on 02/14/17 08:38; Admin Dose 100 MG; Start 01/20/17 at 21:00 Miscellaneous Information 1 ea NOTE XX ; Start 01/20/17 at 17:30 Glucose (Glutose) 15 gm Q15M PRN PO DECREASED GLUCOSE; Start 01/20/17 at 17:30 Glucose (Glutose) 22.5 gm Q15M PRN PO DECREASED GLUCOSE; Start 01/20/17 at 17:30 Dextrose (D50w Syringe) 25 ml Q15M PRN IV DECREASED GLUCOSE; Start 01/20/17 at 17:30 Dextrose (D50w Syringe) 50 ml Q15M PRN IV DECREASED GLUCOSE; Start 01/20/17 at 17:30 Glucagon (Glucagen) 1 mg Q15M PRN IM DECREASED GLUCOSE; Start 01/20/17 at 17:30 Glucose (Glutose) 15 gm Q15M PRN BUCCAL DECREASED GLUCOSE; Start 01/20/17 at 17: 30 Diagnostic Test (Pha) (Accu-Chek) 1 ea 02 XX Last administered on 02/13/17 02: 19; Admin Dose 1 EA; Start 01/21/17 at 02:00 Zolpidem Tartrate (Ambien) 5 mg HS PRN PO INSOMNIA Last administered on 22:49; Admin Dose 5 MG; Start 01/20/17 at 23:30 Polyethylene Glycol (Miralax) 17 gm DAILY PO Last administered on 02/14/17 08: 38; Admin Dose 17 GM; Start 01/21/17 at 15:00 Docusate Sodium (Colace) 100 mg BID PO Last administered on 02/14/17 08:38; Admin Dose 100 MG; Start 01/21/17 at 15:00 Ondansetron HCl (Zofran Inj) 4 mg Q6H PRN IV NAUSEA AND/OR VOMITING Last administered on 01/26/17 20:52; Admin Dose 4 MG; Start 01/24/17 at 23:45 Lactobacillus Acidophilus/ Rhamnosus (Culturelle) 1 cap BID PO Last administered on 02/14/17 08:39; Admin Dose 1 CAP; Start 01/30/17 at 21:00 Acetaminophen (Tylenol Tab) 650 mg Q6H PRN PO PAIN AND OR ELEVATED TEMP; Start 02/04/17 at 17:00 Heparin Sodium (Porcine) (Heparin (5000 Units/0.5 ml)) 5,000 unit BID SC Last administered on 02/13/17 21:07; Admin Dose 5,000 UNIT; Start 02/08/17 at 21:00 Oxycodone/ Acetaminophen (Percocet (5/ 325)) 1 tab Q6H PRN PO PAIN Last administered on 02/14/17 07:06; Admin Dose 1 TAB; Start 02/08/17 at 21:30 Quetiapine Fumarate (Seroquel) 200 mg QHS PO Last administered on 02/13/17 21: 02; Admin Dose 200 MG; Start 02/10/17 at 21:00 Sertraline HCl (Zoloft) 50 mg DAILY PO Last administered on 02/14/17 08:38; Admin Dose 50 MG; Start 02/10/17 at 09:00 Linagliptin (Tradjenta) 5 mg DAILY PO Last administered on 02/14/17 08:39; Admin Dose 5 MG; Start 02/10/17 at 09:00 Insulin Glargine (Lantus) 12 unit DAILY@20 SC Last administered on 6/27/17at 21 :06; Admin Dose 12 UNIT; Start 02/10/17 at 20:00 Lisinopril (Zestril) 2.5 mg QHS PO Last administered on 02/13/17 21:04; Admin Dose 2.5 MG; Start 02/11/17 at 21:00 Lacosamide (Vimpat Liq) 150 mg BID PO Last administered on 02/14/17 08:39; Admin Dose 150 MG; Start 02/13/17 at 09:00 LINDSEY HERNANDEZ MD Feb 14, 2017 13:09
[2017-02-14] MEDS: INSULIN GLARGINE [LANtus] 3 ML PEN SC SCH (20:18)
[2017-02-14] MEDS: ATORVASTATIN 20 MG TAB PO SCH (21:41)
[2017-02-14] MEDS: QUETIAPINE 100 MG TAB PO SCH (21:42)
[2017-02-14] MEDS: LISINOPRIL 5 MG TAB PO SCH (21:47)
[2017-02-14] MEDS: ZOLPIDEM 5 MG TAB PO PRN (23:13)
[2017-02-15] MEDS: ACCUCHECK AT 2AM (Patients on SS coverage) XX SCH (02:00)
[2017-02-15] MEDS: OXYCODONE/ACETAMINOPHEN (5/325) TAB PO PRN (05:15)
[2017-02-15 05:16] VITALS: BP 130/70; PULSE 86
[2017-02-15] MEDS: LEVOTHYROXINE 150 MCG TAB PO SCH (06:07)
[2017-02-15 07:47] VITALS: BP 120/75; RESP 20
[2017-02-15] MEDS: INSULIN ASPART [NOVOLOG] 3 ML PEN SC SCH ×2 (08:00→11:52)
[2017-02-15] MEDS: GABAPENTIN 100 MG CAP PO SCH (09:36)
[2017-02-15] MEDS: LINAGLIPTIN 5 MG TABLET PO SCH (09:36)
[2017-02-15] MEDS: LACTOBACILLUS RHAMNOSUS CAP PO SCH (09:36)
[2017-02-15] MEDS: DOCUSATE SODIUM 100 MG CAP PO SCH (09:36)
[2017-02-15] MEDS: POLYETHYLENE GLYCOL 17 GM PACKET PO SCH (09:36)
[2017-02-15] MEDS: SEVELAMER 800 MG TAB PO SCH ×2 (09:36→11:51)
[2017-02-15] MEDS: SERTRALINE 50 MG TAB PO SCH (09:36)
[2017-02-15] MEDS: HEPARIN 5,000 UNIT/0.5 ML VIAL SC SCH (09:37)
[2017-02-15] MEDS: LACOSAMIDE (100 MG/10 ML PO SYR) PO SCH (09:37)
--- NOTE | 2017-02-15 10:48 | PN ---
Date/Time of Note Date/Time of Note DATE: 02/15/17 TIME: 10:46 Assessment/Plan Lines/Catheters IV C[facility] Type (from [facility] Saline Lock Urinary Cath still in place: No Assessment/Plan Chief Complaint/Hosp Course 1. End-stage renal disease. Plan for dialysis tomorrow 2. Hyperkalemia. Continue dialysis on a low potassium bath. Continue low- potassium diet. 3. Anemia. Continue to monitor hemoglobin and hematocrit levels. cont epogen 4. Mineral bone disorder. Continue to monitor calcium and phosphorus levels. cont phos binders 5. Encephalopathy, etiology is multifactorial. Continue to monitor. 6. Seizure disorder. Continue current medical management. 7. Sepsis, clinically improving. Continue to monitor. 8. Diabetes. Continue Accu-Cheks and sliding scale. 9. Hypothyroidism. Continue Synthroid. 10. Cardiomyopathy. Continue medical management. Problems: Subjective 24 Hr Interval Summary Free Text/Dictation pt stable. no acute events overnight Exam/Review of Systems Vital Signs Vitals Vital Signs Date Time Temp Pulse Resp B/P Pulse Ox O2 Delivery O2 Flow Rate FiO2 02/15/17 07:47 98.3 82 20 120/75 100 Intake and Output 02/14/17 02/14/17 02/15/17 15:00 23:00 07:00 Intake Total 500 ml 520 ml 480 ml Output Total 1500 ml 1000 ml Balance -1000 ml -480 ml 480 ml Exam HEENT: Head is normocephalic. NECK: Supple. HEART: Regular rate. LUNGS: Show diminished breath sounds at base. ABDOMEN: Soft, nontender to palpation without rebound or guarding. EXTREMITIES: Negative for clubbing, cyanosis, edema. DERMATOLOGIC: No rashes. MUSCULOSKELETAL: No joint effusions. NEUROLOGIC: No change in exam. Results Result Diagram: 02/12/17 0548 02/12/17 0548 Results 24 hrs Laboratory Tests Test 02/14/17 12:09 02/14/17 17:46 02/14/17 20:16 02/15/17 07:45 Bedside Glucose 101 81 133 81 Medications Medications Current Medications Aspirin (Halfprin) 81 mg DAILY PO Last administered on 02/05/17 08:12; Admin Dose 81 MG; Start 01/21/17 at 09:00; Status Future Hold Atorvastatin Calcium (Lipitor) 20 mg HS PO Last administered on 02/14/17 21:41 ; Admin Dose 20 MG; Start 01/20/17 at 21:00 Gabapentin (Neurontin) 100 mg BID PO Last administered on 02/15/17 09:36; Admin Dose 100 MG; Start 01/20/17 at 21:00 Miscellaneous Information 1 ea NOTE XX ; Start 01/20/17 at 17:30 Glucose (Glutose) 15 gm Q15M PRN PO DECREASED GLUCOSE; Start 01/20/17 at 17:30 Glucose (Glutose) 22.5 gm Q15M PRN PO DECREASED GLUCOSE; Start 01/20/17 at 17:30 Dextrose (D50w Syringe) 25 ml Q15M PRN IV DECREASED GLUCOSE; Start 01/20/17 at 17:30 Dextrose (D50w Syringe) 50 ml Q15M PRN IV DECREASED GLUCOSE; Start 01/20/17 at 17:30 Glucagon (Glucagen) 1 mg Q15M PRN IM DECREASED GLUCOSE; Start 01/20/17 at 17:30 Glucose (Glutose) 15 gm Q15M PRN BUCCAL DECREASED GLUCOSE; Start 01/20/17 at 17: 30 Diagnostic Test (Pha) (Accu-Chek) 1 ea 02 XX Last administered on 02/13/17 02: 19; Admin Dose 1 EA; Start 01/21/17 at 02:00 Zolpidem Tartrate (Ambien) 5 mg HS PRN PO INSOMNIA Last administered on 23:13; Admin Dose 5 MG; Start 01/20/17 at 23:30 Polyethylene Glycol (Miralax) 17 gm DAILY PO Last administered on 02/15/17 09: 36; Admin Dose 17 GM; Start 01/21/17 at 15:00 Docusate Sodium (Colace) 100 mg BID PO Last administered on 02/15/17 09:36; Admin Dose 100 MG; Start 01/21/17 at 15:00 Ondansetron HCl (Zofran Inj) 4 mg Q6H PRN IV NAUSEA AND/OR VOMITING Last administered on 01/26/17 20:52; Admin Dose 4 MG; Start 01/24/17 at 23:45 Lactobacillus Acidophilus/ Rhamnosus (Culturelle) 1 cap BID PO Last administered on 02/15/17 09:36; Admin Dose 1 CAP; Start 01/30/17 at 21:00 Acetaminophen (Tylenol Tab) 650 mg Q6H PRN PO PAIN AND OR ELEVATED TEMP; Start 02/04/17 at 17:00 Heparin Sodium (Porcine) (Heparin (5000 Units/0.5 ml)) 5,000 unit BID SC Last administered on 02/15/17 09:37; Admin Dose 5,000 UNIT; Start 02/08/17 at 21:00 Oxycodone/ Acetaminophen (Percocet (5/ 325)) 1 tab Q6H PRN PO PAIN Last administered on 02/15/17 05:15; Admin Dose 1 TAB; Start 02/08/17 at 21:30 Quetiapine Fumarate (Seroquel) 200 mg QHS PO Last administered on 02/14/17 21: 42; Admin Dose 200 MG; Start 02/10/17 at 21:00 Sertraline HCl (Zoloft) 50 mg DAILY PO Last administered on 02/15/17 09:36; Admin Dose 50 MG; Start 02/10/17 at 09:00 Linagliptin (Tradjenta) 5 mg DAILY PO Last administered on 02/15/17 09:36; Admin Dose 5 MG; Start 02/10/17 at 09:00 Insulin Glargine (Lantus) 12 unit DAILY@20 SC Last administered on 02/14/17 20 :18; Admin Dose 12 UNIT; Start 02/10/17 at 20:00 Lisinopril (Zestril) 2.5 mg QHS PO Last administered on 02/14/17 21:47; Admin Dose 2.5 MG; Start 02/11/17 at 21:00 Lacosamide (Vimpat Liq) 150 mg BID PO Last administered on 02/15/17 09:37; Admin Dose 150 MG; Start 02/13/17 at 09:00 KERI DE SOUZA DO Feb 15, 2017 10:48
--- NOTE | 2017-02-15 11:54 | PN ---
Date/Time of Note Date/Time of Note DATE: 02/15/17 TIME: 11:52 Assessment/Plan VTE Prophylaxis VTE Prophylaxis Intervention: SCD's Lines/Catheters IV C[facility] Type (from [facility] Saline Lock Urinary Cath still in place: No Assessment/Plan Assessment/Plan 1. Acute encephalopathy, - Toxic metabolic encephalopathy 2. S/p Right-sided pneumonia with right-sided pleural effusion. 3. S/p Sepsis with underlying gram-positive bacteremia. 4. Seizure disorder. EEG confirming seizures. neurology managing / no further seizures so far on Vimpat 5. S/p Acute respiratory failure. Hypoxic. Most probably secondary to underlying pneumonia. Resolved. 6. End-stage renal disease on hemodialysis. Continue hemodialysis as per nephrology. 7. Cardiomyopathy with ejection fraction of 40% as per 2D echocardiogram done on 04/10/2016. Continue IGLESIA inhibitors. 8. Hypothyroidism. Continue Synthroid. 9. Bipolar disorder : zoloft, seroquel 10. Dyslipidemia. Continue statins. 11. Type 2 diabetes mellitus. Off oral medications. On sliding scale insulin. Hemoglobin A1c 5.6. 12. Dysfunctional PermCath. s/p replacement 13. Fluid, electrolytes and nutrition. Carbohydrate controlled diet. 14. Deep venous thrombosis prophylaxis. Bilateral lower extremity sequential compression devices / add heparin 15. Normocytic hypochromic anemia. Iron panel shows iron deficiency. Will continue the patient on iron supplements. Plan. d/c home today Subjective 24 Hr Interval Summary Free Text/Dictation doing ok, BP stable Exam/Review of Systems Vital Signs Vitals Vital Signs Date Time Temp Pulse Resp B/P Pulse Ox O2 Delivery O2 Flow Rate FiO2 02/15/17 07:47 98.3 82 20 120/75 100 Intake and Output 02/14/17 02/14/17 02/15/17 15:00 23:00 07:00 Intake Total 500 ml 520 ml 480 ml Output Total 1500 ml 1000 ml Balance -1000 ml -480 ml 480 ml Results Result Diagram: 02/12/17 0548 02/12/17 0548 Results 24 hrs Laboratory Tests Test 02/14/17 12:09 02/14/17 17:46 02/14/17 20:16 02/15/17 07:45 Bedside Glucose 101 81 133 81 Medications Medications Current Medications Aspirin (Halfprin) 81 mg DAILY PO Last administered on 02/05/17 08:12; Admin Dose 81 MG; Start 01/21/17 at 09:00; Status Future Hold Atorvastatin Calcium (Lipitor) 20 mg HS PO Last administered on 02/14/17 21:41 ; Admin Dose 20 MG; Start 01/20/17 at 21:00 Gabapentin (Neurontin) 100 mg BID PO Last administered on 02/15/17 09:36; Admin Dose 100 MG; Start 01/20/17 at 21:00 Miscellaneous Information 1 ea NOTE XX ; Start 01/20/17 at 17:30 Glucose (Glutose) 15 gm Q15M PRN PO DECREASED GLUCOSE; Start 01/20/17 at 17:30 Glucose (Glutose) 22.5 gm Q15M PRN PO DECREASED GLUCOSE; Start 01/20/17 at 17:30 Dextrose (D50w Syringe) 25 ml Q15M PRN IV DECREASED GLUCOSE; Start 01/20/17 at 17:30 Dextrose (D50w Syringe) 50 ml Q15M PRN IV DECREASED GLUCOSE; Start 01/20/17 at 17:30 Glucagon (Glucagen) 1 mg Q15M PRN IM DECREASED GLUCOSE; Start 01/20/17 at 17:30 Glucose (Glutose) 15 gm Q15M PRN BUCCAL DECREASED GLUCOSE Last administered on 02/15/17 11:51; Admin Dose 15 GM; Start 01/20/17 at 17:30 Diagnostic Test (Pha) (Accu-Chek) 1 ea 02 XX Last administered on 02/13/17 02: 19; Admin Dose 1 EA; Start 01/21/17 at 02:00 Zolpidem Tartrate (Ambien) 5 mg HS PRN PO INSOMNIA Last administered on 23:13; Admin Dose 5 MG; Start 01/20/17 at 23:30 Polyethylene Glycol (Miralax) 17 gm DAILY PO Last administered on 02/15/17 09: 36; Admin Dose 17 GM; Start 01/21/17 at 15:00 Docusate Sodium (Colace) 100 mg BID PO Last administered on 02/15/17 09:36; Admin Dose 100 MG; Start 01/21/17 at 15:00 Ondansetron HCl (Zofran Inj) 4 mg Q6H PRN IV NAUSEA AND/OR VOMITING Last administered on 01/26/17 20:52; Admin Dose 4 MG; Start 01/24/17 at 23:45 Lactobacillus Acidophilus/ Rhamnosus (Culturelle) 1 cap BID PO Last administered on 02/15/17 09:36; Admin Dose 1 CAP; Start 01/30/17 at 21:00 Acetaminophen (Tylenol Tab) 650 mg Q6H PRN PO PAIN AND OR ELEVATED TEMP; Start 02/04/17 at 17:00 Heparin Sodium (Porcine) (Heparin (5000 Units/0.5 ml)) 5,000 unit BID SC Last administered on 02/15/17 09:37; Admin Dose 5,000 UNIT; Start 02/08/17 at 21:00 Oxycodone/ Acetaminophen (Percocet (5/ 325)) 1 tab Q6H PRN PO PAIN Last administered on 02/15/17 05:15; Admin Dose 1 TAB; Start 02/08/17 at 21:30 Quetiapine Fumarate (Seroquel) 200 mg QHS PO Last administered on 02/14/17 21: 42; Admin Dose 200 MG; Start 02/10/17 at 21:00 Sertraline HCl (Zoloft) 50 mg DAILY PO Last administered on 02/15/17 09:36; Admin Dose 50 MG; Start 02/10/17 at 09:00 Linagliptin (Tradjenta) 5 mg DAILY PO Last administered on 02/15/17 09:36; Admin Dose 5 MG; Start 02/10/17 at 09:00 Insulin Glargine (Lantus) 12 unit DAILY@20 SC Last administered on 02/14/17 20 :18; Admin Dose 12 UNIT; Start 02/10/17 at 20:00 Lisinopril (Zestril) 2.5 mg QHS PO Last administered on 02/14/17 21:47; Admin Dose 2.5 MG; Start 02/11/17 at 21:00 Lacosamide (Vimpat Liq) 150 mg BID PO Last administered on 02/15/17 09:37; Admin Dose 150 MG; Start 02/13/17 at 09:00 LINDSEY HERNANDEZ MD Feb 15, 2017 11:54
--- NOTE | 2017-02-15 11:56 | PDOCDIS ---
Discharge Instructions CONDITION Patient Condition: Good HOME CARE INSTRUCTIONS: Special Diet: RENAL ACTIVITY: Activity Restrictions: Slowly Increase Activity Rest between Activity Avoid heavy lifting FOLLOW UP/APPOINTMENTS Follow-up Plan follow up with his own PMD in 1-2 week after discharge. follow up at HD unit for scheduled HD LINDSEY HERNANDEZ MD Feb 15, 2017 11:56
[2017-02-15] MEDS ORDERED: QUET100T32 PO (11:58)
[2017-02-15] MEDS ORDERED: LINA5TAB PO (11:58)
[2017-02-15] MEDS ORDERED: SERT50TA6 PO (11:58)
[2017-02-15] MEDS ORDERED: ASPI-664 PO (11:58)
[2017-02-15] MEDS ORDERED: GABA100C14 PO (11:58)
[2017-02-15] MEDS ORDERED: LANT3I SC (11:58)
[2017-02-15] MEDS ORDERED: SYN15 PO (11:58)
[2017-02-15] MEDS ORDERED: ROPIVACAINE 0.5 % 30 ML VIAL ONE (12:41)
[2017-02-15] MEDS ORDERED: LIDOCAINE 2%/EPI 30 ML INJ ONE (12:42)
--- NOTE | 2017-02-15 23:15 | DS ---
Date/Time of Note Date/Time of Note DATE: 02/15/17 TIME: 23:10 Discharge Summary Admission/Discharge Info Admit Date/Time Jan 20, 2017 at 15:31 Discharge Date/Time Feb 15, 2017 at 13:53 Discharge Diagnosis 1. Acute encephalopathy, - Toxic metabolic encephalopathy 2. S/p Right-sided pneumonia with right-sided pleural effusion. 3. S/p Sepsis with underlying gram-positive bacteremia. 4. Seizure disorder. 5. S/p Acute respiratory failure. Hypoxic.2/2 PNA 6. End-stage renal disease on hemodialysis. Continue hemodialysis as per nephrology. 7. Cardiomyopathy with ejection fraction of 40% as per 2D echocardiogram done on 04/10/2016. 8. Hypothyroidism. 9. Bipolar disorder 10. Dyslipidemia. 11. Type 2 diabetes mellitus. with Hemoglobin A1c 5.6. 12. Dysfunctional PermCath. s/p replacement 13. Normocytic hypochromic anemia Patient Condition: Good Consults Neurology Dr.Neha Mendosa Nephrology Palliative care consult Procedures EEG, CT head, MRI Brain , S/p replacement of Permacath during this admission Hx of Present Illness This is a 56-year-old male with a past medical history of end-stage renal disease on hemodialysis who was brought in by EMS today because of confusion and altered mentation. At this time the patient is not able to tell me much, but he states that he was supposed to go to hemodialysis today and he could not go because he had come to the emergency room. He does report severe lethargy. He denies chest pain or abdominal pain. Preliminary ER workup is consistent with hypotension and probable pneumonia. He will be admitted for this and further intervention will be instituted when patient is able to give more of a history. Hospital Course pt was admitted for speis due to PNA, he had acute resp failiure due to PNA. he also had acute metabolic encephalopathy had a seizures, s/p Neurology consultation, Vimpat was given BP stable finsihed abshavonne jacome in hospital d/c to home with his previous home helath on discharge Home Meds Active Scripts Linagliptin (TRADJENTA) 5 Mg Tablet, 5 MG PO DAILY, #100 TAB Prov:LINDSEY HERNANDEZ MD 02/15/17 Insulin Glargine* (Lantus*) 100 Unit/Ml Soln, 12 UNIT SC DAILY@20 for 60 Days Prov:LINDSEY HERNANDEZ MD 02/15/17 Levothyroxine Sodium* (Synthroid*) 150 Mcg Tablet, 150 MCG PO BEFORE BREAKFAST, #100 TAB Prov:LINDSEY HERNANDEZ MD 02/15/17 Sertraline Hcl* (Sertraline Hcl*) 50 Mg Tablet, 50 MG PO DAILY, #60 TAB Prov:LINDSEY HERNANDEZ MD 02/15/17 Quetiapine Fumarate* (Quetiapine Fumarate*) 100 Mg Tablet, 200 MG PO QHS, #60 TAB Prov:LINDSEY HERNANDEZ MD 02/15/17 Gabapentin* (Gabapentin*) 100 Mg Capsule, 100 MG PO BID, #120 CAP Prov:LINDSEY HERNANDEZ MD 02/15/17 Aspirin* (Aspirin* EC) 81 Mg Tablet., 81 MG PO DAILY, #100 Prov:LINDSEY HERNANDEZ MD 02/15/17 Follow-up Plan Follow up with his own PMD through HMO insurance in1 -2 week. follow up with Neurol[facility] as outpatient in 1-2 week after discharge Primary Care Provider Not On Staff Doctor Time spent on discharge: > 30 minutes Pending Labs Laboratory Tests Test 02/15/17 07:45 02/15/17 11:45 02/15/17 12:12 02/15/17 12:44 Bedside Glucose 81mg/dL (70-220) 66mg/dL (70-220) 78mg/dL (70-220) 133mg/dL (70-220) LINDSEY HERNANDEZ MD Feb 15, 2017 23:15
== END 2017-02-15 13:53 | disposition home health service (06) | DRG 871 ==
LOC: E/R 12:27 → TEL 15:31 → ICU 01-28 13:21 → TEL 01-29 17:22 → PP2 02-09 16:15
PROVIDERS: ADMIT Family Medicine; ATTEND Family Medicine
PROC: 5A1D60Z (ICD-10-PCS; 2017-01-20)
PROC: 0J2TXYZ Change Other Device in Trunk Subcutaneous Tissue and Fascia, External Approach (ICD-10-PCS; principal; 2017-02-06)
DX: A41.1 Sepsis due to other specified staphylococcus (principal); N18.6 End stage renal disease; I13.2 Hypertensive heart and chronic kidney disease with heart failure and with stage 5 chronic kidney disease, or end stage renal disease; G92 Toxic encephalopathy; J90 Pleural effusion, not elsewhere classified; N17.9 Acute kidney failure, unspecified; J18.9 Pneumonia, unspecified organism; I42.8 Other cardiomyopathies; N39.0 Urinary tract infection, site not specified; F02.81 Dementia in other diseases classified elsewhere, unspecified severity, with behavioral disturbance; R47.01 Aphasia; I50.22 Chronic systolic (congestive) heart failure; T82.9XXA Unspecified complication of cardiac and vascular prosthetic device, implant and graft, initial encounter; E11.9 Type 2 diabetes mellitus without complications; J44.9 Chronic obstructive pulmonary disease, unspecified; E87.5 Hyperkalemia; D63.1 Anemia in chronic kidney disease; F32.9 Major depressive disorder, single episode, unspecified; D69.6 Thrombocytopenia, unspecified; E03.9 Hypothyroidism, unspecified; Z72.0 Tobacco use; Z79.4 Long term (current) use of insulin; Z79.82 Long term (current) use of aspirin; R45.1 Restlessness and agitation; G30.9 Alzheimer's disease, unspecified; R29.6 Repeated falls; G40.909 Epilepsy, unspecified, not intractable, without status epilepticus; G24.4 Idiopathic orofacial dystonia; F25.0 Schizoaffective disorder, bipolar type; Z99.2 Dependence on renal dialysis
CPT/HCPCS: 36415; 36558; 36600; 70450; 70551; 71010; 80048; 80053; 80164; 80202; 80306; 80307; 81001; 82140; 82550; 82553; 82728; 82803; 82962; 83036; 83540; 83605; 83735; 84100; 84436; 84439; 84443; 84479; 84484; 85025; 85610; 85730; 87040; 87081; 87086; 90935; 92526; 92610; 93005; 95819; 96374; 96375; 97110; 97116; 97163; 97530; A4310; C1769; J0360; J0692; J1644; J1815; J2250; J2270; J2405; J2795; J2916; J2997; J3010; J3370; J7030; J7040; P9612; Q4081

== ENCOUNTER 2017-05-02 18:00 | Inpatient (IN) | payer MEDICARE, OTHER ==
[~2017-05-02] VITALS: Ht 188 cm; Wt 88.4 kg
[~2017-05-02 18:00] MED LIST changes: -ATOR20TA65 PO; +LANT3I SC; -LEVO150T67 PO; +LINA5TAB PO; -LISI-313 PO; -MTF1000T PO; +QUET100T32 PO; -QUET300T13 PO; -SVL400T PO; +SYN15 PO; -UDMOM PO
[2017-05-02] MEDS ORDERED: SOD CHLORIDE 0.9% 500 ML IV STA (18:46)
[2017-05-02 19:13] LABS: BASOPHILS % 0.3 % (0.0-2.0); EOSINOPHILS # 0.3 10^3/ul (0.0-0.5); EOSINOPHILS % 3.3 % (0.0-7.0); HEMATOCRIT 46.8 % (42.0-52.0); HEMOGLOBIN 14.5 g/dl (14.0-18.0); LYMPHOCYTES # 0.7 10^3/ul (0.8-2.9); LYMPHOCYTES % 8.6 % (15.0-51.0); MEAN CORPUSCULAR HEMOGLOBIN 28.8 pg (29.0-33.0); MEAN CORPUSCULAR VOLUME 92.9 fl (82.0-101.0); MEAN PLATELET VOLUME 11.7 fl (7.4-10.4); MONOCYTE # 0.4 10^3/ul (0.3-0.9); MONOCYTES % 5.2 % (0.0-11.0); NEUTROPHIL # 6.5 10^3/ul (1.6-7.5); NEUTROPHILS % 82.3 % (39.0-77.0); PLATELET COUNT 168 10^3/UL (140-415); RED BLOOD COUNT 5.04 10^6/ul (4.70-6.10); RED CELL DISTRIBUTION WIDTH 15.9 % (11.5-14.5); WHITE BLOOD COUNT 7.8 10^3/ul (4.8-10.8)
--- NOTE | 2017-05-02 19:18 | RADRPT ---
PROCEDURE: XR Chest. CLINICAL INDICATION: Shortness of breath. TECHNIQUE: Single frontal view. COMPARISON: 01/28/2017. FINDINGS: As seen previously, there is a left internal jugular vein tunneled dialysis catheter with the tip in the lower superior vena cava. There is right basilar atelectasis, unchanged. The lungs are otherwis e clear. The heart is enlarged. There is a moderate right pleural effusion. There is no pneumothorax. IMPRESSION: 1. Dialysis catheter in satisfactory position. 2. Mild right basilar atelectasis and moderate right pleural effusion, unchanged. 3. Cardiomegaly. RPTAT: QQ .Derrick Hernández MD, MD Date Time Electronically viewed and signed by .Derrick Hernández MD, MD on 05/02/2017 19:18 .R/
[2017-05-02 19:32] LABS: INR 1.06; PARTIAL THROMBOPLASTIN TIME 32.2 Sec (25.0-35.0); PROTIME 13.8 Sec (12.2-14.2); PT RATIO 1.1
[2017-05-02 19:33] LABS: CALCIUM 9.2 mg/dl (8.4-10.2); CREATININE 10.92 mg/dl (0.61-1.24); POTASSIUM 5.6 mmol/L (3.5-5.1)
[2017-05-02 19:45] LABS: TROPONIN-I 0.051 ng/ml (0.00-0.12)
[2017-05-02] MEDS ORDERED: ASPI325T32 PO (19:48)
[2017-05-02] MEDS ORDERED: LACOSAMIDE (100 MG/10 ML PO SYR) PO ONE (20:30)
--- NOTE | 2017-05-02 20:43 | RADRPT ---
PROCEDURE: CT Brain without contrast. CLINICAL INDICATION: Patient experiencing Syncope. TECHNIQUE: A CT of the brain was performed on a [employer] 64-slice CT scanner utilizing axial imaging from the skull base through the vertex without IV contrast. Multiplanar reformatted images were made. Images were reviewed on a PACS workstation. The CTDIvol is 43.2 mGy and the DLP is 844 mGycm. One or more of the following dose reduction techniques were used: Automated exposure control. Adjustment of the mA and/or kV according to patient size. Use of iterative reconstruction technique. COMPARISON: January 20, 2017 FINDINGS: There is no intracranial hemorrhage, mass effect, or midline shift. No extra-axial fluid collection is seen. The ventricles and sulci are normal in size and configuration. Mild periventricular white matter hypodensities are nonspecific but likely reflect chronic microvascular ischemic change. Gong- white matter differentiation is preserved. The visualized paranasal sinuses and osseous structures are grossly unremarkable. IMPRESSION: 1. No evidence of acute intracranial pathology. 2. Mild periventricular white matter hypodensities are stable and nonspecific but likely reflect chr onic microvascular ischemic change. Physician Marisol Date Time Electronically viewed and signed by Physician Marisol on 05/02/2017 20:43 ML/
--- NOTE | 2017-05-02 21:28 | ERA ---
ER Documentation Chief Complaint Date/Time DATE: 05/02/17 TIME: 21:23 Chief Complaint PT C/O CONSTANTLY FALLING, DENIES SYNCOPE, NO HEADACHE HPI 56yoM History of end-stage renal disease on dialysis, bipolar disorder and seizure disorder who is supposed to be taking Vimpat but has not for 1 month. 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 It appears the patient is having frequent falls. He is falling to the ground and having difficulty standing at least 4-5 times per day. He does not describe vertigo or seizure. He states that he is walking and then one just one side falling to the ground. He has not hit his head or lose consciousness. He is concerned because of the persistence and progression of the process. ROS All systems reviewed and are negative except as per history of present illness. Medications Home Meds Active Scripts Linagliptin (TRADJENTA) 5 Mg Tablet, 5 MG PO DAILY, #100 TAB Prov:LINDSEY HERNANDEZ MD 02/15/17 Insulin Glargine* (Lantus*) 100 Unit/Ml Soln, 12 UNIT SC DAILY@20 for 60 Days Prov:LINDSEY HERNANDEZ MD 02/15/17 Levothyroxine Sodium* (Synthroid*) 150 Mcg Tablet, 150 MCG PO BEFORE BREAKFAST, #100 TAB Prov:LINDSEY HERNANDEZ MD 02/15/17 Sertraline Hcl* (Sertraline Hcl*) 50 Mg Tablet, 50 MG PO DAILY, #60 TAB Prov:LINDSEY HERNANDEZ MD 02/15/17 Quetiapine Fumarate* (Quetiapine Fumarate*) 100 Mg Tablet, 200 MG PO QHS, #60 TAB Prov:LINDSEY HERNANDEZ MD 02/15/17 Gabapentin* (Gabapentin*) 100 Mg Capsule, 100 MG PO BID, #120 CAP Prov:LINDSEY HERNANDEZ MD 02/15/17 Aspirin* (Aspirin* EC) 81 Mg Tablet., 81 MG PO DAILY, #100 Prov:LINDSEY HERNANDEZ MD 02/15/17 Reported Medications Aspirin* (Aspirin* EC) 325 Mg Tab, 325 MG PO DAILY, TAB 05/02/17 Allergies Allergies: Coded Allergies: No Known Allergy (Unverified , 05/02/17) PMhx/Soc Anesthesia Reaction: No Hx Neurological Disorder: Yes (Seizures) Hx Respiratory Disorders: Yes (COPD, ASTHMA, OXYEGN PRN ) Hx Cardiac Disorders: Yes (HTN, HYPERLIPIDEMIA) Hx Psychiatric Problems: Yes (DEPRESSION, SOCIAL ANXIETY) Hx Miscellaneous Medical Probl: Yes (DIABETES) Hx Alcohol Use: No Hx Substance Use: No Hx Tobacco Use: Yes Smoking Status: Current every day smoker FmHx Family History: No diabetes Physical Exam Vitals Vital Signs Date Time Temp Pulse Resp B/P Pulse Ox O2 Delivery O2 Flow Rate FiO2 05/02/17 18:30 115 20 126/97 100 Room Air 05/02/17 18:06 97.1 117 17 109/68 97 Physical Exam General: Stuttering speech head: Normocephalic, atraumatic Eyes: Pupils equally reactive, EOM intact ENT: Moist mucous membranes Neck: Supple, no lymphadenopathy, No midline tenderness, deformities, step-offs to the cervical spine, full active and passive range of motion without midline pain. Respiratory: Lungs clear bilaterally, no distress Cardiovascular: RRR, no murmurs, rubs, or gallops Abdominal: Soft, non-tender, non-distended, no peritoneal signs : Deferred MSK: No edema, no unilateral swelling, 5/5 strength Neurologic: Alert and oriented, moving all extremities, stuttering speech, no focal weakness, no cerebellar signs Skin: No rash Psych: Normal mood Result Diagram: 05/02/17189905/02/171899 Results 24 hrs Laboratory Tests Test 05/02/17 19:00 White Blood Count 7.810^3/ul Red Blood Count 5.0410^6/ul Hemoglobin 14.5g/dl Hematocrit 46.8% Mean Corpuscular Volume 92.9fl Mean Corpuscular Hemoglobin 28.8pg Mean Corpuscular Hemoglobin Concent 31.0g/dl Red Cell Distribution Width 15.9% Platelet Count 04470^3/UL Mean Platelet Volume 11.7fl Neutrophils % 82.3% Lymphocytes % 8.6% Monocytes % 5.2% Eosinophils % 3.3% Basophils % 0.3% Nucleated Red Blood Cells % 0.0/100WBC Neutrophils # 6.510^3/ul Lymphocytes # 0.710^3/ul Monocytes # 0.410^3/ul Eosinophils # 0.310^3/ul Basophils # 0.010^3/ul Nucleated Red Blood Cells # 0.010^3/ul Prothrombin Time 13.8Sec Prothrombin Time Ratio 1.1 INR International Normalized Ratio 1.06 Activated Partial Thromboplast Time 32.2Sec Sodium Level 138mmol/L Potassium Level 5.6mmol/L Chloride Level 95mmol/L Carbon Dioxide Level 24mmol/L Anion Gap 25 Blood Urea Nitrogen 55mg/dl Creatinine 10.92mg/dl Glucose Level 87mg/dl Calcium Level 9.2mg/dl Troponin I 0.051ng/ml Current Medications Medications (Trade) Dose Ordered Sig/Yocasta Route PRN Reason Start Time Stop Time Status Last Admin Dose Admin Sodium Chloride (NS) 500 ml @ 500 mls/hr Q1H STAT IV 05/02/17 18:46 05/02/17 19:45 DC 05/02/17 19:15 Lacosamide (Vimpat Liq) 100 mg ONCE ONCE PO 05/02/17 20:30 05/02/17 20:31 DC 05/02/17 20:42 Ondansetron HCl (Zofran Inj) 4 mg BRIDGE ORDER PRN IV NAUSEA AND/OR VOMITING 05/02/17 21:30 05/03/17 21:29 Acetaminophen (Tylenol Tab) 650 mg ER BRIDGE PRN PO MILD PAIN/FEVER 05/02/17 21:30 05/03/17 21:29 Procedures/MDM EKG, MONITORS, & DIAGNOSTIC IMAGING: EKG: I reviewed and interpreted a 12-lead EKG. Rhythm: Normal sinus rhythm Ectopy: None Intervals: No abnormalities ST segments: No elevations or depressions T waves: No contiguous inversions Chest x-ray: I reviewed and interpreted a 1 view of the chest Mediastinum: No enlargement Cardiac silhouette: No cardiomegaly Airspace: Clear lung bonilla bilaterally without evidence of pneumothorax Bones: No evidence of fracture CT brain: IMPRESSION: 1. No evidence of acute intracranial pathology. 2. Mild periventricular white matter hypodensities are stable and nonspecific but likely reflect chronic microvascular ischemic change. LAB INTERPRETATION: End-stage renal disease, slight hyperkalemia 5.6 without EKG changes, negative troponin MEDICAL DECISION MAKING: The patient has multiple medical problems and a prior history of seizures. He is currently not taking his Vimpat. However, his presentation is not consistent with seizures or status epilepticus. The patient will be given his regular Vimpat. He states 100 mg. The patient is having frequent falls concerning for possible intracranial process. CT brain will be ordered. CT is negative as documented above. However, given the persistence of symptoms and frequency of which he is falling the patient will benefit from hospitalization for further management. ER COURSE: The patient was given his Vimpat. His speech stuttering has improved during intercourse. His laboratory testing is unrevealing. He has very subtle and slight hyperkalemia without EKG changes, no indication for calcium or Kayexalate currently. Nonemergent dialysis in the morning would be reasonable. The patient will benefit from inpatient hospitalization, consideration of MRI imaging, PT OT and possible placement. I kept the patient and/or family informed of laboratory and diagnostic imaging results throughout the emergency room course. DISPOSITION PLAN: [facility] admission CONSULTATION: Accepting care team and consultations: I discussed the current laboratory data, diagnostic imaging and emergency care provided. Admitting team: Dr. Olea Admitting team indication: Insurance directed Departure Diagnosis: Primary Impression: Seizure disorder Additional Impressions: End stage renal disease on dialysis due to type 2 diabetes mellitus Frequent falls Condition: Stable KENNETH DOLL MD May 02, 2017 21:28
[2017-05-02] MEDS ORDERED: ACETAMINOPHEN 325 MG TAB PO PRN (21:30)
[2017-05-02] MEDS ORDERED: ONDANSETRON 4 MG INJ IV PRN (21:30)
[2017-05-02] MEDS ORDERED: HYDROCODONE/APAP (10/325) TAB PO ONE (22:30)
[2017-05-03] VITALS (12 sets, daily range): BP systolic 101–136; BP diastolic 72–94; PULSE 78–87; RESP 18–20; Ht 188 cm; Wt 88.4 kg
[2017-05-03] MEDS ORDERED: OXYC-209 PO (00:01)
[2017-05-03] MEDS ORDERED: ZOLP5TAB PO (00:01)
[2017-05-03] MEDS ORDERED: QUET400T11 PO (00:01)
[2017-05-03] MEDS ORDERED: FURO20TA3 PO (00:04)
[2017-05-03] MEDS: INSULIN GLARGINE [LANtus] 3 ML PEN SC SCH ×3 (00:30→20:19)
[2017-05-03] MEDS: QUETIAPINE 100 MG TAB PO SCH ×3 (00:30→20:15)
[2017-05-03] MEDS ORDERED: ACETAMINOPHEN 325 MG TAB PO PRN (00:30)
[2017-05-03] MEDS ORDERED: GLUCOSE GEL 15 GRAM TUBE BUCCAL PRN (00:45)
[2017-05-03] MEDS ORDERED: GLUCAGON 1 MG INJ IM PRN (00:45)
[2017-05-03] MEDS ORDERED: GLUCOSE GEL 15 GRAM TUBE PO PRN ×2 (00:45)
[2017-05-03] MEDS ORDERED: DEXTROSE 50% 50 ML SYRINGE IV PRN ×2 (00:45)
[2017-05-03] MEDS: ATORVASTATIN 20 MG TAB PO SCH ×2 (01:43→20:14)
[2017-05-03] MEDS: METOPROLOL 25 MG TAB PO SCH ×3 (01:43→20:15)
[2017-05-03] MEDS: OXYCODONE/ACETAMINOPHEN (10/325) TAB PO PRN ×2 (01:47→23:44)
[2017-05-03] MEDS: ZOLPIDEM 5 MG TAB PO PRN ×2 (01:50→23:44)
[2017-05-03] MEDS: ACCU-CHEK XX SCH (02:48)
[2017-05-03] MEDS: ONDANSETRON 4 MG INJ IV PRN (05:15)
[2017-05-03 05:45] LABS: BASOPHILS % 0.5 % (0.0-2.0); EOSINOPHILS # 0.3 10^3/ul (0.0-0.5); EOSINOPHILS % 5.4 % (0.0-7.0); HEMATOCRIT 43.6 % (42.0-52.0); HEMOGLOBIN 13.6 g/dl (14.0-18.0); LYMPHOCYTES # 1.2 10^3/ul (0.8-2.9); LYMPHOCYTES % 20.6 % (15.0-51.0); MEAN CORPUSCULAR HEMOGLOBIN 29.7 pg (29.0-33.0); MEAN CORPUSCULAR HGB CONC 31.2 g/dl (32.0-37.0); MEAN CORPUSCULAR VOLUME 95.2 fl (82.0-101.0); MONOCYTE # 0.5 10^3/ul (0.3-0.9); MONOCYTES % 9.1 % (0.0-11.0); NEUTROPHIL # 3.7 10^3/ul (1.6-7.5); NEUTROPHILS % 64.2 % (39.0-77.0); PLATELET COUNT 178 10^3/UL (140-415); RED BLOOD COUNT 4.58 10^6/ul (4.70-6.10); RED CELL DISTRIBUTION WIDTH 15.6 % (11.5-14.5); WHITE BLOOD COUNT 5.7 10^3/ul (4.8-10.8)
[2017-05-03] MEDS ORDERED: QUET100T PO (06:50)
[2017-05-03 06:52] LABS: CALCIUM 8.8 mg/dl (8.4-10.2); CREATININE 11.51 mg/dl (0.61-1.24); MAGNESIUM 1.7 mg/dl (1.7-2.5); PHOSPHORUS 6.5 mg/dl (2.5-4.9); POTASSIUM 5.8 mmol/L (3.5-5.1)
[2017-05-03 06:55] LABS: ALBUMIN 3.4 g/dl (3.3-4.9); ALBUMIN/GLOBULIN RATIO 0.97; TOTAL PROTEIN 6.9 g/dl (6.1-8.1)
--- NOTE | 2017-05-03 06:56 | HP ---
Date/Time of Note Date/Time of Note DATE: 05/03/17 TIME: 06:36 Assessment/Plan VTE Prophylaxis VTE Prophylaxis Intervention: heparin Lines/Catheters IV Catheter Type (from [facility]): Saline Lock Assessment/Plan Assessment/Plan 1. Frequent falls: Unknown etiology -Patient has been admitted multiple times in the past for this issue, last one being 10 days ago at [facility]. CT angiogram of the head and neck was without any hemodynamically significant stenosis(please see HPI for more info on this). Head CT at [place] as well as here [facility] showed no acute findings. Patient did mention a diagnosis of seizure, and a per ER notes he is supposed to be on Vimpat but has not been taking medication. He does however deny seizure-like activity associated with his falls. At this point plan is to obtain MRI of the brain, place a neurology consult. Patient does have a history of psych disorder and after talking to him, I feel like this also should be considered as a possible etiology. 2. ESRD on HD -Dialysis per nephrology 3. Hyperkalemia -Correct as needed. See also #2 4. History of cardiomyopathy, with systolic dysfunction with EF of 40% -Continue cardiac meds 5. History of hypothyroidism -Continue meds 6. History of psych disorder, bipolar -Continue home meds HPI/ROS Admit Date/Time Admit Date/Time May 02, 2017 at 21:03 Hx of Present Illness This is a 56-year-old male with a history of ESRD on HD, cardiomyopathy with systolic dysfunction with EF of 40%, bipolar, dyslipidemia, hypothyroidism, questionable seizure disorder. Patient presented to the ER complaining of frequent falls. He said yesterday he fell down about 7 times and on a few occasions he was not able to get himself up from the floor. He said no lightheadedness, chest pain, palpitation or any other symptoms prior to or after fall. Patient is a slow when answering questions and has a expressive aphasia. Per ER notes, patient has a power of associate attorney. He is a speech impairment was started since he was a child. He said he has been admitted to the hospital multiple times for of frequent falls without any concrete diagnosis. He said he was diagnosed with seizure in the past but states has not been taking any medications. According to the ER notes, he supposed to be on Vimpat but has not been taking medication he was admitted. At [facility] 10 days ago after he presented with similar complaints. Head CT was negative for acute findings. CT angiogram of the head and neck showed a 17% atherosclerotic stenosis at the right ICA as well as mild to moderate stenosis in the right subclinoid ICA. The radiologist went on to state that there was no hemodynamically significant stenosis. A 2D echo was also done which showed systolic dysfunction with EF of 40%. When he presented to our ER tonight, head CT was negative for acute findings. Labs shows potassium of 5.6 and a creatinine of 11. He gets dialyzed on Sunday , and Sunday. PMH/Family/Social Past Surgical History Past Surgical Hx: other Social History Smoking Status: Current every day smoker Exam/Review of Systems Vital Signs Vitals Vital Signs Date Time Temp Pulse Resp B/P Pulse Ox O2 Delivery O2 Flow Rate FiO2 05/03/17 02:26 97.5 104 20 136/93 97 05/02/17 22:37 Room Air Exam Constitutional: other (No acute distress. Speech impairment noted) Head: atraumatic, normocephalic Eyes: PERRL Respiratory: clear to auscultation Cardiovascular: nl pulses, regular rate and rhythm Gastrointestinal: non-tender, soft Extremities: normal pulses Neurological: nl strength, other (Stuttering) Labs Result Diagram: 05/02/17189905/02/171899 Medications Medications Current Medications Aspirin (Halfprin) 81 mg DAILY PO ; Start 05/03/17 at 09:00 Furosemide (Lasix) 20 mg DAILY PO ; Start 05/03/17 at 09:00 Gabapentin (Neurontin) 100 mg BID PO ; Start 05/03/17 at 09:00 Insulin Glargine (Lantus) 12 unit DAILY@20 SC Last administered on 05/03/17 02 :44; Admin Dose 12 UNIT; Start 05/03/17 at 00:30 Oxycodone/ Acetaminophen (Endocet (10/ 325)) 1 tab Q6 PRN PO PAIN Last administered on 05/03/17 01:47; Admin Dose 1 TAB; Start 05/03/17 at 00:30 Quetiapine Fumarate (Seroquel) 400 mg HS PO ; Start 05/03/17 at 00:30 Sertraline HCl (Zoloft) 50 mg DAILY PO ; Start 05/03/17 at 09:00 Zolpidem Tartrate (Ambien) 10 mg QHS PRN PO INSOMNIA Last administered on 01:50; Admin Dose 10 MG; Start 05/03/17 at 00:30 Atorvastatin Calcium (Lipitor) 20 mg HS PO Last administered on 05/03/17 01:43 ; Admin Dose 20 MG; Start 05/03/17 at 00:30 Heparin Sodium (Porcine) (Heparin (5000 Units/0.5 ml)) 5,000 unit BID SC ; Start 05/03/17 at 09:00 Metoprolol Tartrate (Lopressor) 25 mg Q12 PO Last administered on 05/03/17 01: 43; Admin Dose 25 MG; Start 05/03/17 at 00:30 Morphine Sulfate (morphine) 2 mg Q4H PRN IV PAIN; Start 05/03/17 at 00:30 Ondansetron HCl (Zofran Inj) 4 mg Q6H PRN IV NAUSEA AND/OR VOMITING Last administered on 05/03/17 05:15; Admin Dose 4 MG; Start 05/03/17 at 00:30 Acetaminophen (Tylenol Tab) 650 mg Q6H PRN PO PAIN AND OR ELEVATED TEMP; Start 05/03/17 at 00:30 Diagnostic Test (Pha) (Accu-Chek) 1 ea 02 XX Last administered on 05/03/17 02: 48; Admin Dose 1 EA; Start 05/03/17 at 02:00 Miscellaneous Information 1 ea NOTE XX ; Start 05/03/17 at 00:45 Glucose (Glutose) 15 gm Q15M PRN PO DECREASED GLUCOSE; Start 05/03/17 at 00:45 Glucose (Glutose) 22.5 gm Q15M PRN PO DECREASED GLUCOSE; Start 05/03/17 at 00: 45 Dextrose (D50w Syringe) 25 ml Q15M PRN IV DECREASED GLUCOSE; Start 05/03/17 at 00:45 Dextrose (D50w Syringe) 50 ml Q15M PRN IV DECREASED GLUCOSE; Start 05/03/17 at 00:45 Glucagon (Glucagen) 1 mg Q15M PRN IM DECREASED GLUCOSE; Start 05/03/17 at 00:45 Glucose (Glutose) 15 gm Q15M PRN BUCCAL DECREASED GLUCOSE; Start 05/03/17 at 00 :45 AMDE,JESSIKA MD May 03, 2017 06:46
[2017-05-03 07:04] LABS: THYROID STIMULATING HORMONE 6.84 MIU/L (0.465-4.680)
[2017-05-03] MEDS: INSULIN ASPART [NOVOLOG] 3 ML PEN SC SCH ×4 (08:08→20:23)
[2017-05-03] MEDS: LEVOTHYROXINE 150 MCG TAB PO SCH (08:08)
[2017-05-03] MEDS: ASPIRIN (EC) 81 MG TAB PO SCH (09:07)
[2017-05-03] MEDS: GABAPENTIN 100 MG CAP PO SCH ×2 (09:08→20:14)
[2017-05-03] MEDS: SERTRALINE 50 MG TAB PO SCH (09:08)
[2017-05-03] MEDS: FUROSEMIDE 20 MG TAB PO SCH (09:08)
[2017-05-03] MEDS: HEPARIN 5,000 UNIT/0.5 ML VIAL SC SCH ×2 (09:12→20:20)
[2017-05-03] MEDS ORDERED: HEPARIN 1000 UNITS/ML 10 ML INJ CATHETER SCH (15:30)
[2017-05-04] VITALS (13 sets, daily range): BP systolic 89–149; BP diastolic 48–104; PULSE 84–98; RESP 18–20
[2017-05-04] MEDS: ACCU-CHEK XX SCH (02:00)
[2017-05-04] MEDS: morphine 2 MG INJ IV PRN ×4 (02:35→22:29)
--- NOTE | 2017-05-04 02:35 | CONS ---
DATE OF ADMISSION: 05/02/2017 DATE OF CONSULTATION: 05/03/2017 REASON FOR CONSULT: End-stage renal disease. HISTORY OF PRESENT ILLNESS: This is a 56-year-old male with a past medical history of end-stage renal disease on hemodialysis Sunday, , Sunday; history of bipolar disorder; and seizure disorder, who presents to [facility] after having a fall. The patient, in the emergency room, had a CT scan of the brain, which showed no acute infarct. He was subsequently admitted to [facility] for evaluation. Upon my evaluation, the patient at this time, denies any fevers, chills, nausea, vomiting, any shortness of breath. PAST MEDICAL HISTORY: As stated above. History of end-stage renal disease, history of anemia, history mineral bone disorder, history of psychosis, history of diabetes, history of hypertension. PAST SURGICAL HISTORY: Status post PermCath placement. ALLERGIES: NO KNOWN DRUG ALLERGIES. FAMILY HISTORY: Noncontributory. SOCIAL HISTORY: Does not drink, smoke, or do drugs. MEDICATION: The patient's medications have been reviewed. REVIEW OF SYSTEMS: Fourteen point review of systems conducted. Pertinent positives in HPI, otherwise negative. PHYSICAL EXAMINATION: OBJECTIVE DATA: VITAL SIGNS: Blood pressure 108/73, respirations 18, pulse 84, temperature 97.5. HEENT: Head is normocephalic. NECK: Supple. HEART: Regular rate. LUNGS: Diminished breath sounds at the base. ABDOMEN: Soft, nontender to palpation. No rebound or guarding. EXTREMITIES: Negative for clubbing or cyanosis. No edema. DERMATOLOGIC: Clean. No rashes. MUSCULOSKELETAL: No joint effusion. NEUROLOGIC: No change in exam. The patient's medications have been reviewed. LABORATORY: Shows white count 5 1, hemoglobin 13.6, hematocrit of 43.6, platelet count 178. The patient had a sodium 139, potassium 5.8, BUN 66, creatinine 0.51, phosphorus 6.5. IMPRESSION AND PLAN: This is a 56-year-old male presents with: 1. End-stage renal disease. Plan for hemodialysis today. Will dialyze for 3 hours, 2 potassium bath, calcium 2.5, ultrafiltration as tolerated. 2. Hyperkalemia secondary end-stage renal disease. The patient will be dialyzed on a 2 potassium bath. 3. Mineral bone disorder. Continue to monitor calcium and phosphate levels. Continue phos binders. 4. Mild anemia. Monitor H and H levels. 5. Frequent falls. Etiology is unclear. Continue to monitor. Follow up with Neurology. 6. History of cardiomyopathy. Continue medical management. 7. Hypothyroidism. Continue Synthroid. 8. History of psychiatric disorder. Continue current treatment plan. Thank you, Dr. Matos, for this interesting consult. It will be a pleasure to follow the patient with you throughout the hospital course. Dictated By: Ace Toscano DO /yovani/shaji /Document#: [id number]
[2017-05-04 05:52] LABS: HEMOGLOBIN 13.7 g/dl (14.0-18.0); RED BLOOD COUNT 4.63 10^6/ul (4.70-6.10); WHITE BLOOD COUNT 5.8 10^3/ul (4.8-10.8)
[2017-05-04 05:53] LABS: BASOPHIL # 0.1 10^3/ul (0.0-0.1); BASOPHILS % 0.9 % (0.0-2.0); EOSINOPHILS # 0.5 10^3/ul (0.0-0.5); HEMATOCRIT 43.4 % (42.0-52.0); LYMPHOCYTES # 1.2 10^3/ul (0.8-2.9); LYMPHOCYTES % 21.1 % (15.0-51.0); MEAN CORPUSCULAR HEMOGLOBIN 29.6 pg (29.0-33.0); MEAN CORPUSCULAR HGB CONC 31.6 g/dl (32.0-37.0); MEAN CORPUSCULAR VOLUME 93.7 fl (82.0-101.0); MEAN PLATELET VOLUME 12.5 fl (7.4-10.4); MONOCYTE # 0.5 10^3/ul (0.3-0.9); NEUTROPHIL # 3.5 10^3/ul (1.6-7.5); NEUTROPHILS % 60.7 % (39.0-77.0); PLATELET COUNT 143 10^3/UL (140-415); RED CELL DISTRIBUTION WIDTH 15.9 % (11.5-14.5)
[2017-05-04 06:33] LABS: CALCIUM 8.8 mg/dl (8.4-10.2); CREATININE 10.55 mg/dl (0.61-1.24); MAGNESIUM 1.7 mg/dl (1.7-2.5)
[2017-05-04] MEDS: LEVOTHYROXINE 150 MCG TAB PO SCH (06:38)
[2017-05-04] MEDS: OXYCODONE/ACETAMINOPHEN (10/325) TAB PO PRN ×2 (06:40→22:29)
[2017-05-04] MEDS: INSULIN ASPART [NOVOLOG] 3 ML PEN SC SCH ×4 (08:00→21:00)
[2017-05-04] MEDS: ASPIRIN (EC) 81 MG TAB PO SCH (08:09)
[2017-05-04] MEDS: GABAPENTIN 100 MG CAP PO SCH ×2 (08:09→20:33)
[2017-05-04] MEDS: QUETIAPINE 100 MG TAB PO SCH ×2 (08:09→20:33)
[2017-05-04] MEDS: SERTRALINE 50 MG TAB PO SCH (08:09)
[2017-05-04] MEDS: FUROSEMIDE 20 MG TAB PO SCH (08:10)
[2017-05-04] MEDS: METOPROLOL 25 MG TAB PO SCH ×2 (08:10→20:33)
[2017-05-04] MEDS: HEPARIN 5,000 UNIT/0.5 ML VIAL SC SCH ×2 (08:14→20:37)
--- NOTE | 2017-05-04 10:09 | PN ---
DATE: 05/04/2017 SUBJECTIVE DATA: The patient is stable. No events overnight. No fevers, chills, nausea, vomiting. OBJECTIVE DATA: VITAL SIGNS: Blood pressure is 120/58, respirations 18, pulse 84, temperature 97.8. HEENT: Head is normocephalic. NECK: Supple. HEART: Regular rate. LUNGS: Diminished breath sounds at the base. ABDOMEN: Soft, nontender to palpation. No rebound or guarding. EXTREMITIES: Negative for clubbing, cyanosis. No edema. DERMATOLOGIC: No rashes. MUSCULOSKELETAL: No joint effusion. NEUROLOGIC: No change in exam. MEDICATIONS: Reviewed. LABORATORY AND DIAGNOSTIC DATA: Shows sodium 139, potassium 6.0, BUN 55, creatinine 10.55. White count 5.8, hemoglobin 13.7, hematocrit of 43.4, and platelet count is 143. ASSESSMENT AND PLAN: 1. End-stage renal disease. Patient had hemodialysis yesterday; however, remains hypokalemic today. We will dialyze again for 3 hours in 2K bath. If the patient remains hyperkalemia, would consider doing a URR and/or change in PermCath. 2. Hypokalemia. Will have dialysis again today and 2K potassium bath. 3. Mineral bone disorder. Monitor calcium and phosphorus levels. 4. Anemia. Monitor H and H levels. 5. Frequent falls. Etiology is unclear. Workup is ongoing. 6. History of cardiomyopathy. Continue medical management. 7. Hypothyroidism. Continue Synthroid. 8. History of psychiatric disorder. Dictated By: Ace Toscano DO /yovani/jeanette /Document#: [id number]
[2017-05-04] MEDS: ONDANSETRON 4 MG INJ IV PRN (12:26)
--- NOTE | 2017-05-04 18:22 | PN ---
Date/Time of Note Date/Time of Note DATE: 05/04/17 TIME: 18:20 Assessment/Plan VTE Prophylaxis VTE Prophylaxis Intervention: heparin Lines/Catheters IV [facility] (from [facility]): Saline Lock Assessment/Plan Chief Complaint/Hosp Course 1. Frequent falls: Unknown etiology -Patient states that his neurological condition was better while taking Vimpat, will resume -PT evaluation 2. ESRD on HD -Dialysis per nephrology 3. Hyperkalemia -HD per renal 4. History of cardiomyopathy, with systolic dysfunction with EF of 40% -Continue cardiac meds 5. History of hypothyroidism -Continue meds 6. History of psych disorder, bipolar -Continue home meds Prophylaxis: Heparin Problems: Subjective 24 Hr Interval Summary Neurologic: other (Stuttering) Exam/Review of Systems Vital Signs Vitals Vital Signs Date Time Temp Pulse Resp B/P Pulse Ox O2 Delivery O2 Flow Rate FiO2 05/04/17 14:32 97.8 89 98/67 94 05/04/17 12:00 20 05/02/17 22:37 Room Air Intake and Output 05/03/17 05/03/17 05/04/17 15:00 23:00 07:00 Intake Total 500 ml 340 ml Output Total 2500 ml Balance -2000 ml 340 ml Exam Constitutional: alert, oriented Respiratory: clear to auscultation Cardiovascular: regular rate and rhythm Gastrointestinal: soft, No distended Musculoskeletal: nl extremities to inspection Results Result Diagram: 05/04/17 0525 05/04/17 0518 Results 24 hrs Laboratory Tests Test 05/03/17 20:04 05/04/17 05:18 05/04/17 05:25 05/04/17 07:59 Bedside Glucose 102 80 Sodium Level 139 Potassium Level 6.0 H Chloride Level 99 Carbon Dioxide Level 24 Anion Gap 22 H Blood Urea Nitrogen 55 H Creatinine 10.55 H Glucose Level 81 Calcium Level 8.8 Magnesium Level 1.7 White Blood Count 5.8 Red Blood Count 4.63 L Hemoglobin 13.7 L Hematocrit 43.4 Mean Corpuscular Volume 93.7 Mean Corpuscular Hemoglobin 29.6 Mean Corpuscular Hemoglobin Concent 31.6 L Red Cell Distribution Width 15.9 H Platelet Count 143 Mean Platelet Volume 12.5 H Neutrophils % 60.7 Lymphocytes % 21.1 Monocytes % 9.0 Eosinophils % 8.0 H Basophils % 0.9 Nucleated Red Blood Cells % 0.0 Neutrophils # 3.5 Lymphocytes # 1.2 Monocytes # 0.5 Eosinophils # 0.5 Basophils # 0.1 Nucleated Red Blood Cells # 0.0 Test 05/04/17 11:59 05/04/17 17:26 Bedside Glucose 140 140 Medications Medications Current Medications Aspirin (Halfprin) 81 mg DAILY PO Last administered on 05/04/17 08:09; Admin Dose 81 MG; Start 05/03/17 at 09:00 Furosemide (Lasix) 20 mg DAILY PO Last administered on 05/04/17 08:10; Admin Dose 20 MG; Start 05/03/17 at 09:00 Gabapentin (Neurontin) 100 mg BID PO Last administered on 05/04/17 08:09; Admin Dose 100 MG; Start 05/03/17 at 09:00 Insulin Glargine (Lantus) 12 unit DAILY@20 SC Last administered on 05/03/17 20 :19; Admin Dose 12 UNIT; Start 05/03/17 at 00:30 Oxycodone/ Acetaminophen (Endocet (10/ 325)) 1 tab Q6 PRN PO PAIN Last administered on 05/04/17 06:40; Admin Dose 1 TAB; Start 05/03/17 at 00:30 Quetiapine Fumarate (Seroquel) 400 mg HS PO Last administered on 05/03/17 20: 15; Admin Dose 400 MG; Start 05/03/17 at 00:30 Sertraline HCl (Zoloft) 50 mg DAILY PO Last administered on 05/04/17 08:09; Admin Dose 50 MG; Start 05/03/17 at 09:00 Zolpidem Tartrate (Ambien) 10 mg QHS PRN PO INSOMNIA Last administered on 23:44; Admin Dose 10 MG; Start 05/03/17 at 00:30 Atorvastatin Calcium (Lipitor) 20 mg HS PO Last administered on 05/03/17 20:14 ; Admin Dose 20 MG; Start 05/03/17 at 00:30 Heparin Sodium (Porcine) (Heparin (5000 Units/0.5 ml)) 5,000 unit BID SC Last administered on 05/04/17 08:14; Admin Dose 5,000 UNIT; Start 05/03/17 at 09:00 Metoprolol Tartrate (Lopressor) 25 mg Q12 PO Last administered on 05/04/17 08: 10; Admin Dose 25 MG; Start 05/03/17 at 00:30 Morphine Sulfate (morphine) 2 mg Q4H PRN IV PAIN Last administered on 12:39; Admin Dose 2 MG; Start 05/03/17 at 00:30 Ondansetron HCl (Zofran Inj) 4 mg Q6H PRN IV NAUSEA AND/OR VOMITING Last administered on 05/04/17 12:26; Admin Dose 4 MG; Start 05/03/17 at 00:30 Acetaminophen (Tylenol Tab) 650 mg Q6H PRN PO PAIN AND OR ELEVATED TEMP; Start 05/03/17 at 00:30 Diagnostic Test (Pha) (Accu-Chek) 1 ea 02 XX Last administered on 05/03/17 02: 48; Admin Dose 1 EA; Start 05/03/17 at 02:00 Miscellaneous Information 1 ea NOTE XX ; Start 05/03/17 at 00:45 Glucose (Glutose) 15 gm Q15M PRN PO DECREASED GLUCOSE; Start 05/03/17 at 00:45 Glucose (Glutose) 22.5 gm Q15M PRN PO DECREASED GLUCOSE; Start 05/03/17 at 00: 45 Dextrose (D50w Syringe) 25 ml Q15M PRN IV DECREASED GLUCOSE; Start 05/03/17 at 00:45 Dextrose (D50w Syringe) 50 ml Q15M PRN IV DECREASED GLUCOSE; Start 05/03/17 at 00:45 Glucagon (Glucagen) 1 mg Q15M PRN IM DECREASED GLUCOSE; Start 05/03/17 at 00:45 Glucose (Glutose) 15 gm Q15M PRN BUCCAL DECREASED GLUCOSE; Start 05/03/17 at 00 :45 Quetiapine Fumarate (Seroquel) 100 mg DAILY PO Last administered on 05/04/17 08:09; Admin Dose 100 MG; Start 05/03/17 at 09:00 Lacosamide (Vimpat Liq) 150 mg BID PO ; Start 05/04/17 at 21:00 SCOT DÍAZ May 04, 2017 18:22
[2017-05-04] MEDS: ZOLPIDEM 5 MG TAB PO PRN (20:32)
[2017-05-04] MEDS: ATORVASTATIN 20 MG TAB PO SCH (20:33)
[2017-05-04] MEDS: INSULIN GLARGINE [LANtus] 3 ML PEN SC SCH (20:38)
[2017-05-04] MEDS: LACOSAMIDE (100 MG/10 ML PO SYR) PO SCH (22:31)
[2017-05-05] MEDS: ACCU-CHEK XX SCH (01:32)
[2017-05-05 02:37] VITALS: BP 101/72; RESP 18
[2017-05-05] MEDS: LEVOTHYROXINE 150 MCG TAB PO SCH (06:02)
[2017-05-05] MEDS: morphine 2 MG INJ IV PRN ×3 (06:12→22:11)
[2017-05-05] MEDS: OXYCODONE/ACETAMINOPHEN (10/325) TAB PO PRN ×2 (06:12→21:11)
[2017-05-05 06:24] LABS: BASOPHIL # 0.1 10^3/ul (0.0-0.1); BASOPHILS % 0.5 % (0.0-2.0); EOSINOPHILS # 0.6 10^3/ul (0.0-0.5); EOSINOPHILS % 5.6 % (0.0-7.0); HEMATOCRIT 41.6 % (42.0-52.0); HEMOGLOBIN 13.1 g/dl (14.0-18.0); LYMPHOCYTES # 1.1 10^3/ul (0.8-2.9); LYMPHOCYTES % 11.1 % (15.0-51.0); MEAN CORPUSCULAR HGB CONC 31.5 g/dl (32.0-37.0); MEAN CORPUSCULAR VOLUME 95.2 fl (82.0-101.0); MEAN PLATELET VOLUME 10.5 fl (7.4-10.4); MONOCYTE # 0.6 10^3/ul (0.3-0.9); MONOCYTES % 5.9 % (0.0-11.0); NEUTROPHIL # 7.5 10^3/ul (1.6-7.5); NEUTROPHILS % 76.4 % (39.0-77.0); POSITIVE DIFF @See below; RED BLOOD COUNT 4.37 10^6/ul (4.70-6.10); RED CELL DISTRIBUTION WIDTH 15.7 % (11.5-14.5); WHITE BLOOD COUNT 9.8 10^3/ul (4.8-10.8)
[2017-05-05 06:37] LABS: CALCIUM 8.4 mg/dl (8.4-10.2); CREATININE 9.78 mg/dl (0.61-1.24); MAGNESIUM 1.5 mg/dl (1.7-2.5); PHOSPHORUS 6.6 mg/dl (2.5-4.9); POTASSIUM 5.6 mmol/L (3.5-5.1)
[2017-05-05 06:42] LABS: PLATELET COUNT 110 10^3/UL (140-415)
[2017-05-05] MEDS: INSULIN ASPART [NOVOLOG] 3 ML PEN SC SCH ×4 (08:00→21:00)
[2017-05-05 08:13] VITALS: BP 130/82; RESP 18
[2017-05-05] MEDS: SERTRALINE 50 MG TAB PO SCH (08:17)
[2017-05-05] MEDS: GABAPENTIN 100 MG CAP PO SCH ×2 (08:17→20:50)
[2017-05-05] MEDS: ASPIRIN (EC) 81 MG TAB PO SCH (08:17)
[2017-05-05] MEDS: QUETIAPINE 100 MG TAB PO SCH ×2 (08:17→20:51)
[2017-05-05] MEDS: HEPARIN 5,000 UNIT/0.5 ML VIAL SC SCH ×2 (08:22→20:54)
[2017-05-05] MEDS: ONDANSETRON 4 MG INJ IV PRN ×2 (08:41→17:50)
[2017-05-05] MEDS: LACOSAMIDE (100 MG/10 ML PO SYR) PO SCH ×2 (08:49→20:49)
[2017-05-05] MEDS: METOPROLOL 25 MG TAB PO SCH ×2 (09:00→20:50)
[2017-05-05] MEDS: FUROSEMIDE 20 MG TAB PO SCH (09:00)
[2017-05-05] MEDS ORDERED: MAGNESIUM SULFATE 2 GM/50 ML 50 ML IVPB ONE (10:00)
--- NOTE | 2017-05-05 10:04 | PN ---
Date/Time of Note Date/Time of Note DATE: 05/05/17 TIME: 10:02 Assessment/Plan VTE Prophylaxis VTE Prophylaxis Intervention: other Lines/Catheters IV Catheter Type (from Nrs): PERMACATH Assessment/Plan Assessment/Plan SUBJECTIVE DATA: The patient is stable. No events overnight. No fevers, chills, nausea, vomiting. OBJECTIVE DATA: HEENT: Head is normocephalic. NECK: Supple. HEART: Regular rate. LUNGS: Diminished breath sounds at the base. ABDOMEN: Soft, nontender to palpation. No rebound or guarding. EXTREMITIES: Negative for clubbing, cyanosis. No edema. DERMATOLOGIC: No rashes. MUSCULOSKELETAL: No joint effusion. NEUROLOGIC: No change in exam. MEDICATIONS: Reviewed. \ ASSESSMENT AND PLAN: 1. End-stage renal disease. Patient had hemodialysis yesterday for hyperkalemia. still hyperkalemic. Diet discussed. will give kayaxalate. next hd in am 2. Hypokalemia. will adjust dialysate bath 3. Mineral bone disorder. Monitor calcium and phosphorus levels. 4. Anemia. Monitor H and H levels. 5. Frequent falls. Etiology is unclear. Workup is ongoing. 6. History of cardiomyopathy. Continue medical management. 7. Hypothyroidism. Continue Synthroid. 8. History of psychiatric disorder. Exam/Review of Systems Vital Signs Vitals Vital Signs Date Time Temp Pulse Resp B/P Pulse Ox O2 Delivery O2 Flow Rate FiO2 05/05/17 08:13 97.9 101 18 130/82 94 05/02/17 22:37 Room Air Intake and Output 05/04/17 05/04/17 05/05/17 15:00 23:00 07:00 Intake Total 500 ml 2300 ml 400 ml Output Total 1000 ml Balance -500 ml 2300 ml 400 ml Results Result Diagram: 05/05/17 0542 05/05/17 0542 Results 24 hrs Laboratory Tests Test 05/04/17 11:59 05/04/17 17:26 05/04/17 20:30 05/05/17 05:42 Bedside Glucose 140 140 92 White Blood Count 9.8 # Red Blood Count 4.37 L Hemoglobin 13.1 L Hematocrit 41.6 L Mean Corpuscular Volume 95.2 Mean Corpuscular Hemoglobin 30.0 Mean Corpuscular Hemoglobin Concent 31.5 L Red Cell Distribution Width 15.7 H Platelet Count 110 #L Mean Platelet Volume 10.5 H Neutrophils % 76.4 Lymphocytes % 11.1 L Monocytes % 5.9 Eosinophils % 5.6 Basophils % 0.5 Nucleated Red Blood Cells % 0.0 Neutrophils # 7.5 Lymphocytes # 1.1 Monocytes # 0.6 Eosinophils # 0.6 H Basophils # 0.1 Nucleated Red Blood Cells # 0.0 Sodium Level 136 Potassium Level 5.6 H Chloride Level 96 L Carbon Dioxide Level 27 Anion Gap 19 H Blood Urea Nitrogen 46 H Creatinine 9.78 H Glucose Level 82 Calcium Level 8.4 Phosphorus Level 6.6 H Magnesium Level 1.5 L Test 05/05/17 07:58 Bedside Glucose 75 Medications Medications Current Medications Aspirin (Halfprin) 81 mg DAILY PO Last administered on 05/05/17 08:17; Admin Dose 81 MG; Start 05/03/17 at 09:00 Furosemide (Lasix) 20 mg DAILY PO Last administered on 05/04/17 08:10; Admin Dose 20 MG; Start 05/03/17 at 09:00 Gabapentin (Neurontin) 100 mg BID PO Last administered on 05/05/17 08:17; Admin Dose 100 MG; Start 05/03/17 at 09:00 Insulin Glargine (Lantus) 12 unit DAILY@20 SC Last administered on 05/04/17 20 :38; Admin Dose 12 UNIT; Start 05/03/17 at 00:30 Oxycodone/ Acetaminophen (Endocet (10/ 325)) 1 tab Q6 PRN PO PAIN Last administered on 05/05/17 06:12; Admin Dose 1 TAB; Start 05/03/17 at 00:30 Quetiapine Fumarate (Seroquel) 400 mg HS PO Last administered on 05/04/17 20: 33; Admin Dose 400 MG; Start 05/03/17 at 00:30 Sertraline HCl (Zoloft) 50 mg DAILY PO Last administered on 05/05/17 08:17; Admin Dose 50 MG; Start 05/03/17 at 09:00 Zolpidem Tartrate (Ambien) 10 mg QHS PRN PO INSOMNIA Last administered on 20:32; Admin Dose 10 MG; Start 05/03/17 at 00:30 Atorvastatin Calcium (Lipitor) 20 mg HS PO Last administered on 05/04/17 20:33 ; Admin Dose 20 MG; Start 05/03/17 at 00:30 Heparin Sodium (Porcine) (Heparin (5000 Units/0.5 ml)) 5,000 unit BID SC Last administered on 05/05/17 08:22; Admin Dose 5,000 UNIT; Start 05/03/17 at 09:00 Metoprolol Tartrate (Lopressor) 25 mg Q12 PO Last administered on 05/04/17 08: 10; Admin Dose 25 MG; Start 05/03/17 at 00:30 Morphine Sulfate (morphine) 2 mg Q4H PRN IV PAIN Last administered on 06:12; Admin Dose 2 MG; Start 05/03/17 at 00:30 Ondansetron HCl (Zofran Inj) 4 mg Q6H PRN IV NAUSEA AND/OR VOMITING Last administered on 05/05/17 08:41; Admin Dose 4 MG; Start 05/03/17 at 00:30 Acetaminophen (Tylenol Tab) 650 mg Q6H PRN PO PAIN AND OR ELEVATED TEMP; Start 05/03/17 at 00:30 Diagnostic Test (Pha) (Accu-Chek) 1 ea 02 XX Last administered on 05/03/17 02: 48; Admin Dose 1 EA; Start 05/03/17 at 02:00 Miscellaneous Information 1 ea NOTE XX ; Start 05/03/17 at 00:45 Glucose (Glutose) 15 gm Q15M PRN PO DECREASED GLUCOSE; Start 05/03/17 at 00:45 Glucose (Glutose) 22.5 gm Q15M PRN PO DECREASED GLUCOSE; Start 05/03/17 at 00: 45 Dextrose (D50w Syringe) 25 ml Q15M PRN IV DECREASED GLUCOSE; Start 05/03/17 at 00:45 Dextrose (D50w Syringe) 50 ml Q15M PRN IV DECREASED GLUCOSE; Start 05/03/17 at 00:45 Glucagon (Glucagen) 1 mg Q15M PRN IM DECREASED GLUCOSE; Start 05/03/17 at 00:45 Glucose (Glutose) 15 gm Q15M PRN BUCCAL DECREASED GLUCOSE; Start 05/03/17 at 00 :45 Quetiapine Fumarate (Seroquel) 100 mg DAILY PO Last administered on 05/05/17 08:17; Admin Dose 100 MG; Start 05/03/17 at 09:00 Lacosamide 150 mg 150 mg BID PO Last administered on 05/05/17t 08:49; Admin Dose 150 MG; Start 05/04/17 at 21:00 Magnesium Sulfate (Magnesium Sulfate 2 Gm/50 ml) 50 ml @ 25 mls/hr ONCE ONCE IVPB ; Start 05/05/17 at 10:00; Stop 05/05/17 at 11:59 JERICHO HERNANDEZ DO May 05, 2017 10:03
[2017-05-05] MEDS ORDERED: NA POLYST SULFON 15 GM/60 ML BTL PO ONE (10:30)
[2017-05-05 14:31] VITALS: BP 122/83; RESP 18
--- NOTE | 2017-05-05 17:34 | PN ---
Date/Time of Note Date/Time of Note DATE: 05/05/17 TIME: 17:32 Assessment/Plan VTE Prophylaxis VTE Prophylaxis Intervention: heparin Lines/Catheters IV C[facility]ter Type (from [facility]): Permacath Assessment/Plan Chief Complaint/Hosp Course 1. Frequent falls: Unknown etiology -Patient states that his neurological condition was better while taking Vimpat, and have resume -PT evaluation appreciated, patient appears to need assistance with ambulation, case packer and sealer to arrange for rehab placement as patient is unsafe to go home 2. ESRD on HD -Dialysis per nephrology 3. Hyperkalemia -HD per renal 4. History of cardiomyopathy, with systolic dysfunction with EF of 40% -Continue cardiac meds 5. History of hypothyroidism -Continue meds 6. History of psych disorder, bipolar -Continue home meds Prophylaxis: Heparin Problems: Subjective 24 Hr Interval Summary Neurologic: other (Stuttering) Exam/Review of Systems Vital Signs Vitals Vital Signs Date Time Temp Pulse Resp B/P Pulse Ox O2 Delivery O2 Flow Rate FiO2 05/05/17 14:31 98.1 92 18 122/83 97 05/02/17 22:37 Room Air Intake and Output 05/04/17 05/04/17 05/05/17 15:00 23:00 07:00 Intake Total 500 ml 2300 ml 400 ml Output Total 1000 ml Balance -500 ml 2300 ml 400 ml Exam Constitutional: alert Head: normocephalic Respiratory: clear to auscultation Cardiovascular: regular rate and rhythm Gastrointestinal: soft, No distended Musculoskeletal: nl extremities to inspection Results Result Diagram: 05/05/17 0542 05/05/17 0542 Results 24 hrs Laboratory Tests Test 05/04/17 20:30 05/05/17 05:42 05/05/17 07:58 05/05/17 12:10 Bedside Glucose 92 75 79 White Blood Count 9.8 # Red Blood Count 4.37 L Hemoglobin 13.1 L Hematocrit 41.6 L Mean Corpuscular Volume 95.2 Mean Corpuscular Hemoglobin 30.0 Mean Corpuscular Hemoglobin Concent 31.5 L Red Cell Distribution Width 15.7 H Platelet Count 110 #L Mean Platelet Volume 10.5 H Neutrophils % 76.4 Lymphocytes % 11.1 L Monocytes % 5.9 Eosinophils % 5.6 Basophils % 0.5 Nucleated Red Blood Cells % 0.0 Neutrophils # 7.5 Lymphocytes # 1.1 Monocytes # 0.6 Eosinophils # 0.6 H Basophils # 0.1 Nucleated Red Blood Cells # 0.0 Sodium Level 136 Potassium Level 5.6 H Chloride Level 96 L Carbon Dioxide Level 27 Anion Gap 19 H Blood Urea Nitrogen 46 H Creatinine 9.78 H Glucose Level 82 Calcium Level 8.4 Phosphorus Level 6.6 H Magnesium Level 1.5 L Test 05/05/17 17:03 Bedside Glucose 85 Medications Medications Current Medications Aspirin (Halfprin) 81 mg DAILY PO Last administered on 05/05/17 08:17; Admin Dose 81 MG; Start 05/03/17 at 09:00 Furosemide (Lasix) 20 mg DAILY PO Last administered on 05/04/17 08:10; Admin Dose 20 MG; Start 05/03/17 at 09:00 Gabapentin (Neurontin) 100 mg BID PO Last administered on 05/05/17 08:17; Admin Dose 100 MG; Start 05/03/17 at 09:00 Insulin Glargine (Lantus) 12 unit DAILY@20 SC Last administered on 05/04/17 20 :38; Admin Dose 12 UNIT; Start 05/03/17 at 00:30 Oxycodone/ Acetaminophen (Endocet (10/ 325)) 1 tab Q6 PRN PO PAIN Last administered on 05/05/17 06:12; Admin Dose 1 TAB; Start 05/03/17 at 00:30 Quetiapine Fumarate (Seroquel) 400 mg HS PO Last administered on 05/04/17 20: 33; Admin Dose 400 MG; Start 05/03/17 at 00:30 Sertraline HCl (Zoloft) 50 mg DAILY PO Last administered on 05/05/17 08:17; Admin Dose 50 MG; Start 05/03/17 at 09:00 Zolpidem Tartrate (Ambien) 10 mg QHS PRN PO INSOMNIA Last administered on 20:32; Admin Dose 10 MG; Start 05/03/17 at 00:30 Atorvastatin Calcium (Lipitor) 20 mg HS PO Last administered on 05/04/17 20:33 ; Admin Dose 20 MG; Start 05/03/17 at 00:30 Heparin Sodium (Porcine) (Heparin (5000 Units/0.5 ml)) 5,000 unit BID SC Last administered on 05/05/17 08:22; Admin Dose 5,000 UNIT; Start 05/03/17 at 09:00 Metoprolol Tartrate (Lopressor) 25 mg Q12 PO Last administered on 05/04/17 08: 10; Admin Dose 25 MG; Start 05/03/17 at 00:30 Morphine Sulfate (morphine) 2 mg Q4H PRN IV PAIN Last administered on 06:12; Admin Dose 2 MG; Start 05/03/17 at 00:30 Ondansetron HCl (Zofran Inj) 4 mg Q6H PRN IV NAUSEA AND/OR VOMITING Last administered on 05/05/17 08:41; Admin Dose 4 MG; Start 05/03/17 at 00:30 Acetaminophen (Tylenol Tab) 650 mg Q6H PRN PO PAIN AND OR ELEVATED TEMP; Start 05/03/17 at 00:30 Diagnostic Test (Pha) (Accu-Chek) 1 ea 02 XX Last administered on 05/03/17 02: 48; Admin Dose 1 EA; Start 05/03/17 at 02:00 Miscellaneous Information 1 ea NOTE XX ; Start 05/03/17 at 00:45 Glucose (Glutose) 15 gm Q15M PRN PO DECREASED GLUCOSE; Start 05/03/17 at 00:45 Glucose (Glutose) 22.5 gm Q15M PRN PO DECREASED GLUCOSE; Start 05/03/17 at 00: 45 Dextrose (D50w Syringe) 25 ml Q15M PRN IV DECREASED GLUCOSE; Start 05/03/17 at 00:45 Dextrose (D50w Syringe) 50 ml Q15M PRN IV DECREASED GLUCOSE; Start 05/03/17 at 00:45 Glucagon (Glucagen) 1 mg Q15M PRN IM DECREASED GLUCOSE; Start 05/03/17 at 00:45 Glucose (Glutose) 15 gm Q15M PRN BUCCAL DECREASED GLUCOSE; Start 05/03/17 at 00 :45 Quetiapine Fumarate (Seroquel) 100 mg DAILY PO Last administered on 05/05/17 08:17; Admin Dose 100 MG; Start 05/03/17 at 09:00 Lacosamide (Vimpat Liq) 150 mg BID PO Last administered on 05/05/17 08:49; Admin Dose 150 MG; Start 05/04/17 at 21:00 SCOT DÍAZ May 05, 2017 17:34
[2017-05-05 20:27] VITALS: BP 145/94; RESP 16
[2017-05-05] MEDS: ATORVASTATIN 20 MG TAB PO SCH (20:49)
[2017-05-05] MEDS: INSULIN GLARGINE [LANtus] 3 ML PEN SC SCH (20:53)
[2017-05-06] VITALS (10 sets, daily range): BP systolic 104–139; BP diastolic 58–90; PULSE 83–92; RESP 18–20
[2017-05-06] MEDS: ACCU-CHEK XX SCH (02:00)
[2017-05-06] MEDS: morphine 2 MG INJ IV PRN ×2 (02:05→06:05)
[2017-05-06] MEDS: LEVOTHYROXINE 150 MCG TAB PO SCH (06:05)
[2017-05-06] MEDS: ONDANSETRON 4 MG INJ IV PRN ×2 (06:07→21:01)
[2017-05-06 06:26] LABS: BASOPHIL # 0.1 10^3/ul (0.0-0.1); BASOPHILS % 0.9 % (0.0-2.0); EOSINOPHILS # 0.4 10^3/ul (0.0-0.5); EOSINOPHILS % 6.5 % (0.0-7.0); HEMATOCRIT 37.8 % (42.0-52.0); HEMOGLOBIN 12.1 g/dl (14.0-18.0); LYMPHOCYTES # 1.1 10^3/ul (0.8-2.9); LYMPHOCYTES % 18.6 % (15.0-51.0); MEAN CORPUSCULAR VOLUME 93.6 fl (82.0-101.0); MEAN PLATELET VOLUME 12.7 fl (7.4-10.4); MONOCYTE # 0.5 10^3/ul (0.3-0.9); MONOCYTES % 8.4 % (0.0-11.0); NEUTROPHIL # 3.8 10^3/ul (1.6-7.5); NEUTROPHILS % 65.4 % (39.0-77.0); PLATELET COUNT 136 10^3/UL (140-415); RED BLOOD COUNT 4.04 10^6/ul (4.70-6.10); RED CELL DISTRIBUTION WIDTH 15.6 % (11.5-14.5); WHITE BLOOD COUNT 5.9 10^3/ul (4.8-10.8)
[2017-05-06 07:06] LABS: CALCIUM 8.4 mg/dl (8.4-10.2); CREATININE 10.89 mg/dl (0.61-1.24); MAGNESIUM 1.8 mg/dl (1.7-2.5); POTASSIUM 5.3 mmol/L (3.5-5.1)
[2017-05-06] MEDS: INSULIN ASPART [NOVOLOG] 3 ML PEN SC SCH ×4 (08:15→20:45)
[2017-05-06] MEDS: FUROSEMIDE 20 MG TAB PO SCH (09:00)
[2017-05-06] MEDS: METOPROLOL 25 MG TAB PO SCH ×2 (09:00→20:47)
--- NOTE | 2017-05-06 09:10 | PN ---
Date/Time of Note Date/Time of Note DATE: 05/06/17 TIME: 09:09 Assessment/Plan VTE Prophylaxis VTE Prophylaxis Intervention: other Lines/Catheters IV Catheter Type (from Nrs): PERMACATH Central line still needed: Yes Assessment/Plan Chief Complaint/Hosp Course SUBJECTIVE DATA: The patient is stable. No events overnight. No fevers, chills, nausea, vomiting. OBJECTIVE DATA: HEENT: Head is normocephalic. NECK: Supple. HEART: Regular rate. LUNGS: Diminished breath sounds at the base. ABDOMEN: Soft, nontender to palpation. No rebound or guarding. EXTREMITIES: Negative for clubbing, cyanosis. No edema. DERMATOLOGIC: No rashes. MUSCULOSKELETAL: No joint effusion. NEUROLOGIC: No change in exam. MEDICATIONS: Reviewed. \ ASSESSMENT AND PLAN: 1. End-stage renal disease. continue HD in am. 2. Hyperkalemia. will adjust dialysate bath. diet discussed 3. Mineral bone disorder. Monitor calcium and phosphorus levels. 4. Anemia. Monitor H and H levels. 5. Frequent falls. Etiology is unclear. Workup is ongoing. 6. History of cardiomyopathy. Continue medical management. 7. Hypothyroidism. Continue Synthroid. 8. History of psychiatric disorder. Problems: Exam/Review of Systems Vital Signs Vitals Vital Signs Date Time Temp Pulse Resp B/P Pulse Ox O2 Delivery O2 Flow Rate FiO2 05/06/17 08:10 97.6 89 18 130/77 95 05/02/17 22:37 Room Air Intake and Output 05/05/17 05/05/17 05/06/17 15:00 23:00 07:00 Intake Total 50 ml 1460 ml 800 ml Balance 50 ml 1460 ml 800 ml Results Result Diagram: 05/06/17 0503 05/06/17 0503 Results 24 hrs Laboratory Tests Test 05/05/17 12:10 05/05/17 17:03 05/05/17 20:47 05/06/17 05:03 Bedside Glucose 79 85 94 White Blood Count 5.9 # Red Blood Count 4.04 L Hemoglobin 12.1 L Hematocrit 37.8 L Mean Corpuscular Volume 93.6 Mean Corpuscular Hemoglobin 30.0 Mean Corpuscular Hemoglobin Concent 32.0 Red Cell Distribution Width 15.6 H Platelet Count 136 #L Mean Platelet Volume 12.7 #H Neutrophils % 65.4 Lymphocytes % 18.6 Monocytes % 8.4 Eosinophils % 6.5 Basophils % 0.9 Nucleated Red Blood Cells % 0.0 Neutrophils # 3.8 Lymphocytes # 1.1 Monocytes # 0.5 Eosinophils # 0.4 Basophils # 0.1 Nucleated Red Blood Cells # 0.0 Sodium Level 133 L Potassium Level 5.3 H Chloride Level 93 L Carbon Dioxide Level 24 Anion Gap 21 H Blood Urea Nitrogen 52 H Creatinine 10.89 H Glucose Level 76 Calcium Level 8.4 Magnesium Level 1.8 Test 05/06/17 08:02 05/06/17 08:24 05/06/17 08:59 Bedside Glucose 68 L 88 87 Medications Medications Current Medications Aspirin (Halfprin) 81 mg DAILY PO Last administered on 05/05/17 08:17; Admin Dose 81 MG; Start 05/03/17 at 09:00 Furosemide (Lasix) 20 mg DAILY PO Last administered on 05/04/17 08:10; Admin Dose 20 MG; Start 05/03/17 at 09:00 Gabapentin (Neurontin) 100 mg BID PO Last administered on 05/05/17 20:50; Admin Dose 100 MG; Start 05/03/17 at 09:00 Insulin Glargine (Lantus) 12 unit DAILY@20 SC Last administered on 05/05/17 20 :53; Admin Dose 12 UNIT; Start 05/03/17 at 00:30 Oxycodone/ Acetaminophen (Endocet (10/ 325)) 1 tab Q6 PRN PO PAIN Last administered on 05/05/17 21:11; Admin Dose 1 TAB; Start 05/03/17 at 00:30 Quetiapine Fumarate (Seroquel) 400 mg HS PO Last administered on 05/05/17 20: 51; Admin Dose 400 MG; Start 05/03/17 at 00:30 Sertraline HCl (Zoloft) 50 mg DAILY PO Last administered on 05/05/17 08:17; Admin Dose 50 MG; Start 05/03/17 at 09:00 Zolpidem Tartrate (Ambien) 10 mg QHS PRN PO INSOMNIA Last administered on 20:32; Admin Dose 10 MG; Start 05/03/17 at 00:30 Atorvastatin Calcium (Lipitor) 20 mg HS PO Last administered on 05/05/17 20:49 ; Admin Dose 20 MG; Start 05/03/17 at 00:30 Heparin Sodium (Porcine) (Heparin (5000 Units/0.5 ml)) 5,000 unit BID SC Last administered on 05/05/17 20:54; Admin Dose 5,000 UNIT; Start 05/03/17 at 09:00 Metoprolol Tartrate (Lopressor) 25 mg Q12 PO Last administered on 05/05/17 20: 50; Admin Dose 25 MG; Start 05/03/17 at 00:30 Morphine Sulfate (morphine) 2 mg Q4H PRN IV PAIN Last administered on 06:05; Admin Dose 2 MG; Start 05/03/17 at 00:30 Ondansetron HCl (Zofran Inj) 4 mg Q6H PRN IV NAUSEA AND/OR VOMITING Last administered on 05/06/17 06:07; Admin Dose 4 MG; Start 05/03/17 at 00:30 Acetaminophen (Tylenol Tab) 650 mg Q6H PRN PO PAIN AND OR ELEVATED TEMP; Start 05/03/17 at 00:30 Diagnostic Test (Pha) (Accu-Chek) 1 ea 02 XX Last administered on 05/03/17 02: 48; Admin Dose 1 EA; Start 05/03/17 at 02:00 Miscellaneous Information 1 ea NOTE XX ; Start 05/03/17 at 00:45 Glucose (Glutose) 15 gm Q15M PRN PO DECREASED GLUCOSE; Start 05/03/17 at 00:45 Glucose (Glutose) 22.5 gm Q15M PRN PO DECREASED GLUCOSE; Start 05/03/17 at 00: 45 Dextrose (D50w Syringe) 25 ml Q15M PRN IV DECREASED GLUCOSE; Start 05/03/17 at 00:45 Dextrose (D50w Syringe) 50 ml Q15M PRN IV DECREASED GLUCOSE; Start 05/03/17 at 00:45 Glucagon (Glucagen) 1 mg Q15M PRN IM DECREASED GLUCOSE; Start 05/03/17 at 00:45 Glucose (Glutose) 15 gm Q15M PRN BUCCAL DECREASED GLUCOSE; Start 05/03/17 at 00 :45 Quetiapine Fumarate (Seroquel) 100 mg DAILY PO Last administered on 05/05/17 08:17; Admin Dose 100 MG; Start 05/03/17 at 09:00 Lacosamide (Vimpat Liq) 150 mg BID PO Last administered on 05/05/17t 20:49; Admin Dose 150 MG; Start 05/04/17 at 21:00 JERICHO HERNANDEZ DO May 06, 2017 09:10
[2017-05-06] MEDS: QUETIAPINE 100 MG TAB PO SCH ×2 (09:43→20:48)
[2017-05-06] MEDS: SERTRALINE 50 MG TAB PO SCH (09:43)
[2017-05-06] MEDS: GABAPENTIN 100 MG CAP PO SCH ×2 (09:43→20:46)
[2017-05-06] MEDS: ASPIRIN (EC) 81 MG TAB PO SCH (09:43)
[2017-05-06] MEDS: LACOSAMIDE (100 MG/10 ML PO SYR) PO SCH ×2 (09:48→21:47)
[2017-05-06] MEDS: HEPARIN 5,000 UNIT/0.5 ML VIAL SC SCH ×2 (09:49→20:57)
--- NOTE | 2017-05-06 18:50 | PN ---
Date/Time of Note Date/Time of Note DATE: 05/06/17 TIME: 18:49 Assessment/Plan VTE Prophylaxis VTE Prophylaxis Intervention: heparin Lines/Catheters IV [facility] PERMACATH Assessment/Plan Chief Complaint/Hosp Course 1. Frequent falls: Unknown etiology-improving with Vimpat -Patient states that his neurological condition was better while taking Vimpat, and have resume -PT evaluation appreciated, patient appears to be improving 2. ESRD on HD -Dialysis per nephrology 3. Hyperkalemia -HD per renal 4. History of cardiomyopathy, with systolic dysfunction with EF of 40% -Continue cardiac meds 5. History of hypothyroidism -Continue meds 6. History of psych disorder, bipolar -Continue home meds Prophylaxis: Heparin Discharge: DC home tomorrow Problems: Subjective 24 Hr Interval Summary Constitutional: no complaints Exam/Review of Systems Vital Signs Vitals Vital Signs Date Time Temp Pulse Resp B/P Pulse Ox O2 Delivery O2 Flow Rate FiO2 05/06/17 14:00 98.7 87 18 136/75 96 05/02/17 22:37 Room Air Intake and Output 05/05/17 05/05/17 05/06/17 15:00 23:00 07:00 Intake Total 50 ml 1460 ml 800 ml Balance 50 ml 1460 ml 800 ml Exam Constitutional: alert, oriented Respiratory: clear to auscultation Cardiovascular: regular rate and rhythm Gastrointestinal: soft, No distended Musculoskeletal: nl extremities to inspection Results Result Diagram: 05/06/17 0503 05/06/17 0503 Results 24 hrs Laboratory Tests Test 05/05/17 20:47 05/06/17 05:03 05/06/17 08:02 05/06/17 08:24 Bedside Glucose 94 68 L 88 White Blood Count 5.9 # Red Blood Count 4.04 L Hemoglobin 12.1 L Hematocrit 37.8 L Mean Corpuscular Volume 93.6 Mean Corpuscular Hemoglobin 30.0 Mean Corpuscular Hemoglobin Concent 32.0 Red Cell Distribution Width 15.6 H Platelet Count 136 #L Mean Platelet Volume 12.7 #H Neutrophils % 65.4 Lymphocytes % 18.6 Monocytes % 8.4 Eosinophils % 6.5 Basophils % 0.9 Nucleated Red Blood Cells % 0.0 Neutrophils # 3.8 Lymphocytes # 1.1 Monocytes # 0.5 Eosinophils # 0.4 Basophils # 0.1 Nucleated Red Blood Cells # 0.0 Sodium Level 133 L Potassium Level 5.3 H Chloride Level 93 L Carbon Dioxide Level 24 Anion Gap 21 H Blood Urea Nitrogen 52 H Creatinine 10.89 H Glucose Level 76 Calcium Level 8.4 Magnesium Level 1.8 Test 05/06/17 08:59 05/06/17 12:23 05/06/17 17:10 Bedside Glucose 87 110 121 Medications Medications Current Medications Aspirin (Halfprin) 81 mg DAILY PO Last administered on 05/06/17 09:43; Admin Dose 81 MG; Start 05/03/17 at 09:00 Furosemide (Lasix) 20 mg DAILY PO Last administered on 05/04/17 08:10; Admin Dose 20 MG; Start 05/03/17 at 09:00 Gabapentin (Neurontin) 100 mg BID PO Last administered on 05/06/17 09:43; Admin Dose 100 MG; Start 05/03/17 at 09:00 Insulin Glargine (Lantus) 12 unit DAILY@20 SC Last administered on 05/05/17 20 :53; Admin Dose 12 UNIT; Start 05/03/17 at 00:30 Oxycodone/ Acetaminophen (Endocet (10/ 325)) 1 tab Q6 PRN PO PAIN Last administered on 05/05/17 21:11; Admin Dose 1 TAB; Start 05/03/17 at 00:30 Quetiapine Fumarate (Seroquel) 400 mg HS PO Last administered on 05/05/17 20: 51; Admin Dose 400 MG; Start 05/03/17 at 00:30 Sertraline HCl (Zoloft) 50 mg DAILY PO Last administered on 05/06/17 09:43; Admin Dose 50 MG; Start 05/03/17 at 09:00 Zolpidem Tartrate (Ambien) 10 mg QHS PRN PO INSOMNIA Last administered on 20:32; Admin Dose 10 MG; Start 05/03/17 at 00:30 Atorvastatin Calcium (Lipitor) 20 mg HS PO Last administered on 05/05/17 20:49 ; Admin Dose 20 MG; Start 05/03/17 at 00:30 Heparin Sodium (Porcine) (Heparin (5000 Units/0.5 ml)) 5,000 unit BID SC Last administered on 05/06/17 09:49; Admin Dose 5,000 UNIT; Start 05/03/17 at 09:00 Metoprolol Tartrate (Lopressor) 25 mg Q12 PO Last administered on 05/05/17 20: 50; Admin Dose 25 MG; Start 05/03/17 at 00:30 Morphine Sulfate (morphine) 2 mg Q4H PRN IV PAIN Last administered on 06:05; Admin Dose 2 MG; Start 05/03/17 at 00:30 Ondansetron HCl (Zofran Inj) 4 mg Q6H PRN IV NAUSEA AND/OR VOMITING Last administered on 05/06/17 06:07; Admin Dose 4 MG; Start 05/03/17 at 00:30 Acetaminophen (Tylenol Tab) 650 mg Q6H PRN PO PAIN AND OR ELEVATED TEMP; Start 05/03/17 at 00:30 Diagnostic Test (Pha) (Accu-Chek) 1 ea 02 XX Last administered on 05/03/17 02: 48; Admin Dose 1 EA; Start 05/03/17 at 02:00 Miscellaneous Information 1 ea NOTE XX ; Start 05/03/17 at 00:45 Glucose (Glutose) 15 gm Q15M PRN PO DECREASED GLUCOSE; Start 05/03/17 at 00:45 Glucose (Glutose) 22.5 gm Q15M PRN PO DECREASED GLUCOSE; Start 05/03/17 at 00: 45 Dextrose (D50w Syringe) 25 ml Q15M PRN IV DECREASED GLUCOSE; Start 05/03/17 at 00:45 Dextrose (D50w Syringe) 50 ml Q15M PRN IV DECREASED GLUCOSE; Start 05/03/17 at 00:45 Glucagon (Glucagen) 1 mg Q15M PRN IM DECREASED GLUCOSE; Start 05/03/17 at 00:45 Glucose (Glutose) 15 gm Q15M PRN BUCCAL DECREASED GLUCOSE; Start 05/03/17 at 00 :45 Quetiapine Fumarate (Seroquel) 100 mg DAILY PO Last administered on 05/06/17 09:43; Admin Dose 100 MG; Start 05/03/17 at 09:00 Lacosamide (Vimpat Liq) 150 mg BID PO Last administered on 05/06/17 09:48; Admin Dose 150 MG; Start 05/04/17 at 21:00 SCOT DÍAZ May 06, 2017 18:50
[2017-05-06] MEDS: OXYCODONE/ACETAMINOPHEN (10/325) TAB PO PRN (20:46)
[2017-05-06] MEDS: ATORVASTATIN 20 MG TAB PO SCH (20:48)
[2017-05-06] MEDS: INSULIN GLARGINE [LANtus] 3 ML PEN SC SCH (20:57)
[2017-05-07] MEDS: ACCU-CHEK XX SCH (02:00)
[2017-05-07 02:16] VITALS: BP 141/71; RESP 18
[2017-05-07 06:06] LABS: BASOPHIL # 0.1 10^3/ul (0.0-0.1); BASOPHILS % 0.9 % (0.0-2.0); EOSINOPHILS # 0.3 10^3/ul (0.0-0.5); EOSINOPHILS % 6.4 % (0.0-7.0); HEMOGLOBIN 12.1 g/dl (14.0-18.0); LYMPHOCYTES # 1.1 10^3/ul (0.8-2.9); MEAN CORPUSCULAR HEMOGLOBIN 29.2 pg (29.0-33.0); MEAN CORPUSCULAR HGB CONC 31.8 g/dl (32.0-37.0); MEAN CORPUSCULAR VOLUME 91.6 fl (82.0-101.0); MONOCYTE # 0.5 10^3/ul (0.3-0.9); MONOCYTES % 9.9 % (0.0-11.0); NEUTROPHIL # 3.3 10^3/ul (1.6-7.5); NEUTROPHILS % 62.6 % (39.0-77.0); PLATELET COUNT 118 10^3/UL (140-415); POSITIVE DIFF @See below; RED BLOOD COUNT 4.15 10^6/ul (4.70-6.10); RED CELL DISTRIBUTION WIDTH 15.6 % (11.5-14.5); WHITE BLOOD COUNT 5.3 10^3/ul (4.8-10.8)
[2017-05-07 06:24] LABS: CALCIUM 7.8 mg/dl (8.4-10.2); CREATININE 10.26 mg/dl (0.61-1.24); POTASSIUM 4.9 mmol/L (3.5-5.1)
[2017-05-07] MEDS: LEVOTHYROXINE 150 MCG TAB PO SCH (06:31)
[2017-05-07] MEDS: OXYCODONE/ACETAMINOPHEN (10/325) TAB PO PRN (06:31)
[2017-05-07 07:15] VITALS: BP 118/75; RESP 18
[2017-05-07] MEDS: INSULIN ASPART [NOVOLOG] 3 ML PEN SC SCH ×2 (08:15→12:15)
[2017-05-07] MEDS: ASPIRIN (EC) 81 MG TAB PO SCH (08:29)
[2017-05-07] MEDS: GABAPENTIN 100 MG CAP PO SCH (08:30)
[2017-05-07] MEDS: SERTRALINE 50 MG TAB PO SCH (08:30)
[2017-05-07] MEDS: QUETIAPINE 100 MG TAB PO SCH (08:30)
[2017-05-07] MEDS: HEPARIN 5,000 UNIT/0.5 ML VIAL SC SCH (08:30)
[2017-05-07] MEDS: LACOSAMIDE (100 MG/10 ML PO SYR) PO SCH (08:31)
[2017-05-07] MEDS: METOPROLOL 25 MG TAB PO SCH (09:00)
[2017-05-07] MEDS: FUROSEMIDE 20 MG TAB PO SCH (09:00)
[2017-05-07 14:00] VITALS: BP 143/82; RESP 18
--- NOTE | 2017-05-07 14:19 | PN ---
DATE: 05/07/2017 SUBJECTIVE DATA: The patient is stable. No events overnight. No fevers, chills, nausea, vomiting. No shortness of breath. OBJECTIVE DATA: VITAL SIGNS: Blood pressure is 118/75, respirations 18, pulse 78, and temperature 97.9. HEENT: Head is normocephalic. NECK: Supple. HEART: Regular rate. LUNGS: Diminished breath sounds at the base. ABDOMEN: Soft. Nontender to palpation. No rebound or guarding. EXTREMITIES: Negative for clubbing, cyanosis. No edema. DERMATOLOGIC: No rashes. MUSCULOSKELETAL: No joint effusions. NEUROLOGIC: No change in exam. MEDICATIONS: Reviewed. LABORATORY AND DIAGNOSTIC DATA: Sodium 130, potassium 4.9, chloride 90, BUN 54, creatinine 10.26. White count 5.3, hemoglobin 10.1, hematocrit 38, and platelet count is 118,000. ASSESSMENT: 1. End-stage renal disease. The patient had hemodialysis yesterday. Plan for dialysis tomorrow. 2. Hyperkalemia. Continue dialysis and low-potassium bath. 3. Mineral bone disorder. Monitor calcium and phosphorus levels. 4. Anemia. Monitor hemoglobin and hematocrit levels. 5. History of cardiomyopathy. Continue medical management. 6. Hypothyroidism. Continue Synthroid. 7. History of psychiatric disorder. Dictated By: Ace Toscano DO /[email or web address]/randal /Document#: [id number]
--- NOTE | 2017-05-07 14:32 | PDOCDIS ---
Discharge Instructions CONDITION Patient Condition: Good HOME CARE INSTRUCTIONS: Special Diet: CARB CONTROLLED, RENAL ACTIVITY: Activity Restrictions: Rest between Activity Avoid heavy lifting FOLLOW UP/APPOINTMENTS Follow-up Plan Follow up with nephrology tomorrow for hemodialysis Follow Up with vascular surgeon as outpatient WILIAM PHIPPS MD May 07, 2017 14:31
[2017-05-07] MEDS ORDERED: LACO10SO PO (14:34)
[2017-05-07] MEDS ORDERED: ATOR20TA65 PO (14:34)
[2017-05-07] MEDS ORDERED: ASPI-664 PO (14:34)
[2017-05-07] MEDS ORDERED: GABA100C14 PO (14:34)
[2017-05-07] MEDS ORDERED: METO-448 PO (14:34)
--- NOTE | 2017-05-07 22:09 | DS ---
DATE OF ADMISSION: 05/05/2017 DATE OF DISCHARGE: 05/07/2017 FIRE CAPTAIN: Nephrology. PROCEDURES: None. IMAGING: CT of the brain showed no evidence of acute intracranial pathology. Mild periventricular white matter hypodensity are stable. Nonspecific but likely reflect chronic microvascular ischemic changes. FINAL DIAGNOSES: 1. Frequent falls. Improving on Vimpat. Patient stated neurology condition better while taking Vimpat. 2. End-stage renal disease, on hemodialysis. 3. Hyperkalemia, resolved status post hemodialysis (HD). 4. History of cardiomyopathy with systolic dysfunction and an ejection fraction of 40 percent. 5. History of hypothyroidism. 6. History of psych disorder, bipolar. 7. Essential hypertension. 8. Dyslipidemia. MEDICATION: 1. Lipitor 20 mg. 2. Vimpat 150 mg. 3. Toprol 25 mg. 4. Aspirin 81 mg. 5. Lasix 20 mg. 6. Gabapentin 100 mg. 7. Lantus 12 units. 8. Levothroid 150 mcg. 9. Percocet. 10. Quetiapine 500 mg. 11. Sertraline 50 mg. 12. Ambien 10 mg. ALLERGIES: NO KNOWN DRUG ALLERGIES. LABS: WBC 5.3, hemoglobin 12.1, hematocrit 38.0, and platelet 118. Sodium 130, potassium 4.9, chloride 98, bicarb 26, BUN 54, creatinine 10.26, glucose 75, calcium 7.8. Hemoglobin A1c of 5.1. HOSPITAL COURSE: This is a 56-year-old gentleman with past medical history of end-stage renal disease, on hemodialysis, diabetes mellitus, diabetic nephropathy, seizure disorder, systolic congestive heart failure with reduced left ventricle function, ejection fraction 40 percent, essential hypertension, dyslipidemia, associated diabetic mellitus type 2, hypothyroidism, major depression, schizoaffective disorder, who presented to [facility] secondary to having difficulty with ambulation and frequent falls. CT angiogram of the head and neck was without any significant stenosis. CT of the head did not show any acute findings. The patient was supposed to be on Vimpat, but has not been taking his medication, but according to him while he was taken the Vimpat his gait was more stable. The patient denies any seizure-like activity associated with his fall. Patient upon admission was slow when answering questions and had expressive aphasia. His speech impairment started while he was a child. As stated above patient was seen and evaluated at Hospital x[facility] days, and he had a full workup. Upon admission the CT of the head was normal without any acute finding. Nephrology was consulted. The patient was placed on Vimpat and has been seen by physical therapy. Today, patient is awake, alert, and oriented. Able to follow commands. He has been able to ambulate with physical therapy without any risk of fall. He is a [facility] patient and does his follow up Neurology is at [facility]. In regards to his essential hypertension his blood pressures were controlled on metoprolol. Regarding his affective disorder he is Seroquel. Regarding to the depression the patient has been continued on sertraline. He has been continued on his home medication. At this time the patient is medically stable to be discharged home with close follow up with his primary care physician at [facility], Neurology at the [facility], and Nephrology tomorrow. Dictated By: Patrick Arce MD /yovani/carina /Document#: [id number]
== END 2017-05-07 16:35 | disposition home or self-care (01) | DRG 100 ==
LOC: E/R 18:00 → INTOOBSV 21:03 → MS2 21:03 → OBSVTOIN 05-05 17:35
PROVIDERS: ADMIT Internal Medicine; ATTEND Internal Medicine
PROC: 5A1D60Z (ICD-10-PCS; principal; 2017-05-03)
DX: G40.909 Epilepsy, unspecified, not intractable, without status epilepticus (principal); N18.6 End stage renal disease; I13.2 Hypertensive heart and chronic kidney disease with heart failure and with stage 5 chronic kidney disease, or end stage renal disease; I42.9 Cardiomyopathy, unspecified; E11.21 Type 2 diabetes mellitus with diabetic nephropathy; R47.01 Aphasia; I50.20 Unspecified systolic (congestive) heart failure; E83.9 Disorder of mineral metabolism, unspecified; E11.22 Type 2 diabetes mellitus with diabetic chronic kidney disease; Z99.2 Dependence on renal dialysis; Z91.81 History of falling; E03.9 Hypothyroidism, unspecified; E78.5 Hyperlipidemia, unspecified; F17.210 Nicotine dependence, cigarettes, uncomplicated; M89.8X9 Other specified disorders of bone, unspecified site; E87.5 Hyperkalemia; F32.9 Major depressive disorder, single episode, unspecified
CPT/HCPCS: 36415; 70450; 71010; 80048; 80053; 80061; 82962; 83036; 83735; 84100; 84443; 84484; 85025; 85610; 85730; 87081; 90935; 93005; 97161; 99217; G0378; J1644; J1815; J2270; J2405; J3475; J7040

== ENCOUNTER 2017-05-11 15:40 | Emergency (ER) | payer MEDICARE, OTHER ==
[~2017-05-11] VITALS: Ht 190.5 cm; Wt 113.6 kg
[~2017-05-11 15:40] MED LIST changes: +ATOR20TA65 PO; +FURO20TA3 PO; +LACO10SO PO; -LINA5TAB PO; +METO-448 PO; +OXYC-209 PO; +QUET100T PO; -QUET100T32 PO; +QUET400T11 PO; +ZOLP5TAB PO
[2017-05-11 15:46] VITALS: Ht 190.5 cm; Wt 113.6 kg
[2017-05-11] MEDS ORDERED: LORAZEPAM 2 MG INJ IV STA (15:48)
[2017-05-11] MEDS ORDERED: SOD CHLORIDE 0.9% 1,000 ML IV STA (15:48)
--- NOTE | 2017-05-11 15:55 | ERA ---
ER Documentation Chief Complaint Date/Time DATE: 05/11/17 TIME: 15:50 Chief Complaint CAME IN VIA EMS DUE TO NOT TAKING SZ MEDS X3 DAYS WITH TWITCHING HPI This is a 56-year-old male with a past medical history of hypertension, hyperlipidemia, diabetes, peripheral neuropathy, ESRD on HD, CHF with EF 40%, hypothyroidism, depression, Seizure disorder with myoclonic jerks for which he has been evaluated by neurology in the past and is supposed to be on Vimpat, noncompliant on this medication with issues related [facility] is now presenting with approximately 4 hours of intermittent full-body myoclonic jerking with no changes to mentation. The patient's is currently alert and able to answer questions. He does not have any other complaints. There is no history of trauma. He has not been sick recently. He denies fever or chills. He denies nausea or vomiting. He denies headache or vision changes. He denies chest pain or trouble breathing. He denies abdominal pain or changes to bowel movements urination. He denies any focal deficits. He denies any weakness or numbness or tingling to the face or extremities. ROS All systems reviewed and are negative except as per history of present illness. Medications Home Meds Active Scripts Lacosamide (Vimpat) 10 Mg/1 Ml Solution, 150 MG PO BID, #60 Prov:WILIAM PHIPPS MD 05/07/17 Metoprolol Tartrate* (Lopressor*) 25 Mg Tab, 25 MG PO Q12, #60 TAB Prov:WILIAM PHIPPS MD 05/07/17 Atorvastatin Calcium (Atorvastatin Calcium) 20 Mg Tablet, 20 MG PO HS, #30 TAB Prov:WILIAM PHIPPS MD 05/07/17 Gabapentin* (Gabapentin*) 100 Mg Capsule, 100 MG PO BID, #60 CAP Prov:WILIAM PHIPPS MD 05/07/17 Aspirin* (Aspirin* EC) 81 Mg Tablet.dr, 81 MG PO DAILY, #30 Prov:WILIAM PHIPPS MD 05/07/17 Insulin Glargine* (Lantus*) 100 Unit/Ml Soln, 12 UNIT SC DAILY@20 for 60 Days Prov:LINDSEY HERNANDEZ MD 02/15/17 Levothyroxine Sodium* (Synthroid*) 150 Mcg Tablet, 150 MCG PO BEFORE BREAKFAST, #100 TAB Prov:LINDSEY HERNANDEZ MD 02/15/17 Sertraline Hcl* (Sertraline Hcl*) 50 Mg Tablet, 50 MG PO DAILY, #60 TAB Prov:LINDSEY HERNANDEZ MD 02/15/17 Reported Medications Quetiapine Fumarate* (Seroquel*) 100 Mg Tablet, 100 MG PO DAILY TAKEN IN THE MORNING 05/03/17 Furosemide* (Furosemide*) 20 Mg Tablet, 20 MG PO DAILY 05/03/17 Oxycodone HCl/Acetaminophen (Percocet 10-325 mg Tablet) 1 Each Tablet, 1 EACH PO Q6 Y for PAIN, TAB 05/03/17 Quetiapine Fumarate* (Quetiapine Fumarate*) 400 Mg Tablet, 400 MG PO HS, TAB 05/03/17 Zolpidem Tartrate* (Ambien*) 5 Mg Tablet, 10 MG PO QHS Y for INSOMNIA 05/03/17 Discontinued Reported Medications Aspirin* (Aspirin* EC) 325 Mg Tab, 325 MG PO DAILY, TAB 05/02/17 Allergies Allergies: Coded Allergies: No Known Allergy (Unverified , 05/11/17) PMhx/Soc History of Surgery: Yes (RIGHT ANKLE SX WITH PINS,LEFT WRIST SX) Anesthesia Reaction: No Hx Neurological Disorder: Yes (SEIZURES) Hx Respiratory Disorders: Yes (COPD,ASTHMA) Hx Cardiac Disorders: Yes (HTN,HYPERLIPIDEMIA) Hx Psychiatric Problems: Yes (DEPRESSION) Hx Miscellaneous Medical Probl: Yes ( ESRD on HD, cardiomyopathy with systolic dysfunction with EF of 40%, bipol) Hx Alcohol Use: No Hx Substance Use: No Hx Tobacco Use: Yes (UNDER A PACK EACH DAY) FmHx Family History: diabetes Physical Exam Vitals Vital Signs Date Time Temp Pulse Resp B/P Pulse Ox O2 Delivery O2 Flow Rate FiO2 05/11/17 22:35 98.4 80 20 145/96 97 Room Air 05/11/17 20:30 113 16 151/112 100 Room Air 2.0 05/11/17 19:54 Nasal Cannula 2 05/11/17 18:12 100 16 168/115 99 Room Air 05/11/17 15:46 98.5 91 16 139/94 100 Physical Exam Const: No apparent distress, well-developed, well-nourished Head: Atraumatic, normocephalic Eyes: Normal Conjunctiva ENT: Normal External Ears, Nose and Mouth. Neck: Full range of motion..~ No meningismus. Resp: Clear to auscultation bilaterally Cardio: Regular rate and rhythm, no murmurs Abd: Soft, non tender, non distended. Normal bowel sounds Skin: No petechiae or rashes Back: No midline or flank tenderness Ext: No cyanosis, or edema, strong equal radial and DP pulses Neur: Awake and alert, normal sensation, normal strength, intermittent myoclonic jerking, stuttering Psych: Normal Mood and Affect Result Diagram: 05/11/17 1610 05/11/17 1730 Results 24 hrs Laboratory Tests Test 05/11/17 16:10 05/11/17 17:30 White Blood Count 9.210^3/ul Red Blood Count 4.0910^6/ul Hemoglobin 12.1g/dl Hematocrit 37.6% Mean Corpuscular Volume 91.9fl Mean Corpuscular Hemoglobin 29.6pg Mean Corpuscular Hemoglobin Concent 32.2g/dl Red Cell Distribution Width 16.2% Platelet Count 46337^3/UL Mean Platelet Volume fl Neutrophils % 81.3% Lymphocytes % 7.3% Monocytes % 7.4% Eosinophils % 3.4% Basophils % 0.3% Nucleated Red Blood Cells % 0.0/100WBC Neutrophils # 7.510^3/ul Lymphocytes # 0.710^3/ul Monocytes # 0.710^3/ul Eosinophils # 0.310^3/ul Basophils # 0.010^3/ul Nucleated Red Blood Cells # 0.010^3/ul Urine Color YELLOW Urine Clarity CLEAR Urine pH 8.0 Urine Specific [place] 1.011 Urine Ketones NEGATIVEmg/dL Urine Nitrite NEGATIVEmg/dL Urine Bilirubin NEGATIVEmg/dL Urine Urobilinogen NEGATIVEmg/dL Urine Leukocyte Esterase NEGATIVELeu/ul Urine Microscopic RBC 1/HPF Urine Microscopic WBC 2/HPF Urine Hemoglobin NEGATIVEmg/dL Urine Glucose 1+mg/dL Urine Total Protein 2+mg/dl Sodium Level 135mmol/L Potassium Level 5.4mmol/L Chloride Level 94mmol/L Carbon Dioxide Level 25mmol/L Anion Gap 21 Blood Urea Nitrogen 59mg/dl Creatinine 11.32mg/dl Glucose Level 73mg/dl Calcium Level 8.1mg/dl Magnesium Level 1.7mg/dl Total Bilirubin 0.0mg/dl Direct Bilirubin 0.00mg/dl Indirect Bilirubin 0.0mg/dl Aspartate Amino Transf (AST/SGOT) 38IU/L Alanine Aminotransferase (ALT/SGPT) 30IU/L Alkaline Phosphatase 84IU/L Total Protein 7.8g/dl Albumin 3.8g/dl Globulin 4.00g/dl Albumin/Globulin Ratio 0.95 Current Medications Medications (Trade) Dose Ordered Sig/Yocasta Route PRN Reason Start Time Stop Time Status Last Admin Dose Admin Sodium Chloride (NS) 1,000 ml @ 1,000 mls/hr Q1H STAT IV 05/11/17 15:48 05/11/17 16:47 DC 05/11/17 16:22 Lorazepam (Ativan) 2 mg ONCE STAT IV 05/11/17 15:48 05/11/17 15:50 DC 05/11/17 16:22 Lacosamide (Vimpat Liq) 150 mg ONCE ONCE PO 05/11/17 17:30 05/11/17 17:31 Cancel Lacosamide (Vimpat Liq) 150 mg ONCE ONCE PO 05/11/17 18:30 05/11/17 18:31 DC 05/11/17 18:44 Procedures/[facility] Patient's presentation warrants further investigation. The patient has a history of partial seizures with myoclonic jerking, and he has been noncompliant with his medications. The patient was actually admitted to the hospital recently for seizures. He was restarted on his Vimpat and ultimately discharged. However, the patient unfortunately was unable to get his prescription authorized until tomorrow. The patient will be given Ativan as well as a dose of Vimpat in the emergency department. Additionally, Blood work will be obtained and reviewed to evaluate for any signs of an infectious or metabolic or other neurologic abnormality. LABS The patient's blood work was obtained and reviewed. The patient seemed shows no leukocytosis or left shift. The patient is afebrile, and I do not suspect a systemic infection. The patient is mildly anemic today, which does not require emergent treatment. The patient's platelet count is mildly decreased, which also does not require emergent treatment. The patient's CMP shows a mild elevation in potassium and a decrease in chloride, but these are not emergent. The patient's BUN and creatinine are also significantly elevated. However, his BUN is not so high that I would expect uremia as the etiology of his symptoms. The patient's creatinine appears to be around his baseline. He is actively getting dialysis as an outpatient. His LFTs are unremarkable. The patient's urinalysis shows signs of nephropathy, likely associated with stage renal disease. I see no signs of hematuria or infection. IMAGING CT head IMPRESSION: 1. No acute intracranial hemorrhage, transcortical infarction or mass effect. 2. Mild intracranial atherosclerosis and chronic small vessel ischemic changes. 3. Mild generalized cerebral volume loss. 4. Mild occipitoparietal scalp swelling and hematoma without underlying skull fracture. Electronically viewed and signed by .Bala Paul MD, MD on 05/11/2017 17: 14 Chest x-ray IMPRESSION: Left sided tunneled dialysis catheter in place. Chronic pleural thickening and atelectasis in the right lower lung unchanged. Electronically viewed and signed by .Edson Lynn MD, MD on 05/11/2017 16:44 TREATMENT/DISPOSITION The patient received Ativan and Vimpat in the emergency department with complete resolution of his symptoms. He had completely returned to baseline. In speaking with Dr. Arias, the on-call neurologist, he felt that this would be appropriate as long as the patient had close follow-up. The patient's mentation never waned, and I do not suspect an alternative neurologic abnormality at this time. I do not see an infectious etiology of his symptoms either. The patient was mildly tachycardic in the emergency department. In discussing with the patient, the patient reports that he is been mildly tachycardic for several years. The patient was instructed to follow-up with his primary care physician about this in 1-3 days. With respect to his seizures , the patient does have an appointment with his neurologist tomorrow. He can also get his prescription filled tomorrow. These are both reassuring. The patient is stable for discharge at this time. He will be given precautions with which to return to the emergency department. We were able to arrange transfer back to his home. Departure Diagnosis: Primary Impression: Episode of shaking Additional Impressions: Breakthrough seizure Chronic kidney disease Qualified Code: N18.9 - Chronic kidney disease, unspecified CKD stage Tachycardia Condition: Stable RUBEN RIVERA MD May 11, 2017 15:55
[2017-05-11 16:29] LABS: ABNORMAL IP MESSAGE 1; BASOPHILS % 0.3 % (0.0-2.0); EOSINOPHILS # 0.3 10^3/ul (0.0-0.5); EOSINOPHILS % 3.4 % (0.0-7.0); HEMATOCRIT 37.6 % (42.0-52.0); HEMOGLOBIN 12.1 g/dl (14.0-18.0); LYMPHOCYTES # 0.7 10^3/ul (0.8-2.9); LYMPHOCYTES % 7.3 % (15.0-51.0); MEAN CORPUSCULAR HEMOGLOBIN 29.6 pg (29.0-33.0); MEAN CORPUSCULAR HGB CONC 32.2 g/dl (32.0-37.0); MEAN CORPUSCULAR VOLUME 91.9 fl (82.0-101.0); MONOCYTE # 0.7 10^3/ul (0.3-0.9); MONOCYTES % 7.4 % (0.0-11.0); NEUTROPHIL # 7.5 10^3/ul (1.6-7.5); NEUTROPHILS % 81.3 % (39.0-77.0); PLATELET COUNT 133 10^3/UL (140-415); POSITIVE DIFF @See below; RED BLOOD COUNT 4.09 10^6/ul (4.70-6.10); RED CELL DISTRIBUTION WIDTH 16.2 % (11.5-14.5); WHITE BLOOD COUNT 9.2 10^3/ul (4.8-10.8)
--- NOTE | 2017-05-11 16:44 | RADRPT ---
PROCEDURE: XR Chest. CLINICAL INDICATION: Dyspnea . TECHNIQUE: Single frontal chest x-ray. COMPARISON: 05/02/2017 FINDINGS: There is a left-sided tunneled dialysis catheter in place unchanged. Chronic pleural thickening and atelectasis at the right lower lung is unchanged. The left lung is clear. .. Cardiomegaly is stable .. The osseous structures are intact. IMPRESSION: Left sided tunneled dialysis catheter in place. Chronic pleural thickening and atelectasis in the right lower lung unchanged.. RPTAT: GG .Edson Lynn MD, MD Date Time Electronically viewed and signed by .Edson Lynn MD, MD on 05/11/2017 16:44 .L/
--- NOTE | 2017-05-11 17:15 | RADRPT ---
PROCEDURE: CT Brain without contrast. CLINICAL INDICATION: Fall, trauma, pain. TECHNIQUE: A CT of the brain was performed on multidetector high-resolution CT scanner utilizing a xial sections from the skull base through the vertex without contrast. The scan was reviewed in sof t tissue brain and high frequency resolution bone algorithm windows. Images were reviewed on a high -resolution PACS workstation. One or more the following does reduction techniques were utilized: Aut omated exposure control, adjustment of the mA/ or kV according to patient's size, or use of iterativ e reconstruction technique. The exam CTDI = 45.01 x2 mGy and the DLP = 630.2 mGy-cm. COMPARISON: Brain CT 05/02/2017. FINDINGS: The ventricles and sulci are mildly prominent indicative of volume loss. There is no intracranial he morrhage, mass effect or midline shift. No abnormal intra-axial or extra-axial fluid collections ar e seen. The bray/white matter differentiation is preserved. There are mild scattered foci of hypoattenuation in the white matter, which are nonspecific in etiol ogy but likely reflect chronic small vessel ischemic changes. There are mild intracranial vascular calcifications consistent with atherosclerosis. The visualized paranasal sinuses are essentially steven ar. Mild occipitoparietal scalp swelling and hematoma are noted without underlying skull fracture. IMPRESSION: 1. No acute intracranial hemorrhage, transcortical infarction or mass effect. 2. Mild intracranial atherosclerosis and chronic small vessel ischemic changes. 3. Mild generalized cerebral volume loss. 4. Mild occipitoparietal scalp swelling and hematoma without underlying skull fracture. RPTAT: HFN .Bala Paul MD, MD Date Time Electronically viewed and signed by .Bala Paul MD, MD on 05/11/2017 17:14 .N/
[2017-05-11] MEDS ORDERED: LACOSAMIDE (100 MG/10 ML PO SYR) PO ONE ×2 (17:30→18:30)
[2017-05-11 17:57] LABS: ADD UMIC YES; UR ASCORBIC ACID NEGATIVE (NEGATIVE); UR BILIRUBIN (Dip) NEGATIVE (NEGATIVE); UR BLOOD (Dip) NEGATIVE (NEGATIVE); UR CLARITY CLEAR (CLEAR); UR COLOR YELLOW (YELLOW); UR GLUCOSE (Dip) 1+ mg/dL (NEGATIVE); UR KETONES (Dip) NEGATIVE (NEGATIVE); UR LEUKOCYTE ESTERASE (Dip) NEGATIVE Leu/ul (NEGATIVE); UR NITRITE (Dip) NEGATIVE (NEGATIVE); UR RBC 1 /HPF (0-5); UR SPECIFIC GRAVITY (Dip) 1.011 (1.003-1.030); UR TOTAL PROTEIN (Dip) 2+ mg/dl (NEGATIVE); UR UROBILINOGEN (Dip) NEGATIVE (NEGATIVE)
[2017-05-11 18:32] LABS: ALBUMIN 3.8 g/dl (3.3-4.9); ALBUMIN/GLOBULIN RATIO 0.95; CALCIUM 8.1 mg/dl (8.4-10.2); CREATININE 11.32 mg/dl (0.61-1.24); MAGNESIUM 1.7 mg/dl (1.7-2.5); POTASSIUM 5.4 mmol/L (3.5-5.1); TOTAL PROTEIN 7.8 g/dl (6.1-8.1)
[2017-05-11 22:35] VITALS: BP 145/96; PULSE 80; RESP 20; TEMP 98.4
== END 2017-05-11 22:35 | disposition home or self-care (01) ==
LOC: E/R 15:40
DX: R56.9 Unspecified convulsions (principal); R00.0 Tachycardia, unspecified; J44.9 Chronic obstructive pulmonary disease, unspecified; J45.909 Unspecified asthma, uncomplicated; I12.0 Hypertensive chronic kidney disease with stage 5 chronic kidney disease or end stage renal disease; N18.6 End stage renal disease; E11.22 Type 2 diabetes mellitus with diabetic chronic kidney disease; Z99.2 Dependence on renal dialysis; Z79.82 Long term (current) use of aspirin; Z79.4 Long term (current) use of insulin
CPT/HCPCS: 36415; 70450; 71010; 80053; 81001; 83735; 85025; 96374; 99285; J2060; J7030

== ENCOUNTER 2017-06-27 05:44 | Inpatient (IN) | payer MEDICARE, OTHER ==
[2017-06-27] VITALS (13 sets, daily range): BP systolic 118–166; BP diastolic 63–106; PULSE 95–110; RESP 18–22; Ht 185.4 cm; Wt 88.4 kg
[~2017-06-27] VITALS: Ht 185.4 cm; Wt 88.4 kg
[2017-06-27] MEDS ORDERED: ALBUTEROL 0.5% (NEB) 2.5 MG/0.5 ML AMP INH STA (05:46)
[2017-06-27] MEDS ORDERED: IPRATROPIUM (NEB) 0.5 MG/2.5 ML AMP INH STA (05:46)
--- NOTE | 2017-06-27 06:17 | ERD ---
ER Documentation Chief Complaint Chief Complaint SOB all day today, missed dialysis this am, COPD pt on 4L at home HPI 57-year-old man with a history of end-stage kidney disease, COPD, and congestive heart failure presents with shortness of breath and difficulty breathing 4-5 days. He missed Sunday's dialysis so last hemodialysis was 4 days ago, his last seizure episode was 3 weeks ago and he states he uses his antiepileptic medications as prescribed. Patient denies chest pain, no calf or leg swelling, no headache or blurry vision, no fevers or chills, no recent antibiotic use. ROS All systems reviewed and are negative except as per history of present illness. Medications Home Meds Active Scripts Lacosamide (Vimpat) 10 Mg/1 Ml Solution, 150 MG PO BID, #60 Prov:WILIAM PHIPPS MD 05/07/17 Metoprolol Tartrate* (Lopressor*) 25 Mg Tab, 25 MG PO Q12, #60 TAB Prov:WILIAM PHIPPS MD 05/07/17 Atorvastatin Calcium (Atorvastatin Calcium) 20 Mg Tablet, 20 MG PO HS, #30 TAB Prov:WILIAM PHIPPS MD 05/07/17 Gabapentin* (Gabapentin*) 100 Mg Capsule, 100 MG PO BID, #60 CAP Prov:WILIAM PHIPPS MD 05/07/17 Aspirin* (Aspirin* EC) 81 Mg Tablet.dr, 81 MG PO DAILY, #30 Prov:WILIAM PHIPPS MD 05/07/17 Insulin Glargine* (Lantus*) 100 Unit/Ml Soln, 12 UNIT SC DAILY@20 for 60 Days Prov:LINDSEY HERNANDEZ MD 02/15/17 Levothyroxine Sodium* (Synthroid*) 150 Mcg Tablet, 150 MCG PO BEFORE BREAKFAST, #100 TAB Prov:LINDSEY HERNANDEZ MD 02/15/17 Sertraline Hcl* (Sertraline Hcl*) 50 Mg Tablet, 50 MG PO DAILY, #60 TAB Prov:LINDSEY HERNANDEZ MD 02/15/17 Reported Medications Quetiapine Fumarate* (Seroquel*) 100 Mg Tablet, 100 MG PO DAILY TAKEN IN THE MORNING 05/03/17 Furosemide* (Furosemide*) 20 Mg Tablet, 20 MG PO DAILY 05/03/17 Quetiapine Fumarate* (Quetiapine Fumarate*) 400 Mg Tablet, 400 MG PO HS, TAB 05/03/17 Zolpidem Tartrate* (Ambien*) 5 Mg Tablet, 10 MG PO QHS Y for INSOMNIA 05/03/17 Discontinued Reported Medications Oxycodone HCl/Acetaminophen (Percocet 10-325 mg Tablet) 1 Each Tablet, 1 EACH PO Q6 Y for PAIN, TAB 05/03/17 Allergies Allergies: Coded Allergies: No Known Allergy (Unverified , 05/11/17) PMhx/Soc hypertension, hyperlipidemia, diabetes, peripheral neuropathy, ESRD on HD, CHF with EF 40%, hypothyroidism, depression, Seizure disorder with myoclonic jerk History of Surgery: Yes (RIGHT ANKLE SX WITH PINS,LEFT WRIST SX) Anesthesia Reaction: No Hx Neurological Disorder: Yes (SEIZURES) Hx Respiratory Disorders: Yes (COPD,ASTHMA) Hx Cardiac Disorders: Yes (HTN,HYPERLIPIDEMIA) Hx Psychiatric Problems: Yes (DEPRESSION) Hx Miscellaneous Medical Probl: Yes ( ESRD on HD, cardiomyopathy with systolic dysfunction with EF of 40%, bipol) Hx Alcohol Use: No Hx Substance Use: No Hx Tobacco Use: Yes (UNDER A PACK EACH DAY) Smoking Status: Current every day smoker FmHx Family History: No diabetes Physical Exam Vitals Vital Signs Date Time Temp Pulse Resp B/P Pulse Ox O2 Delivery O2 Flow Rate FiO2 06/27/17 06:32 103 20 122/80 100 Mask 06/27/17 05:58 104 24 99 21 06/27/17 05:50 98.1 105 24 127/96 87 Physical Exam GENERAL: Well-developed, well-nourished, well-hydrated, in no apparent distress , looks nontoxic in appearance HEENT: Moist mucous membranes, pink conjunctiva, no cervical spine tenderness or step-off deformities, no goiter, no jaundice or icterus, extraocular movements intact without pain. No submandibular induration, and no pharyngeal erythema NEURO: Alert and oriented 3, cranial nerves II through XII intact bilaterally, pupils equal round reactive to light, no focal deficits or facial asymmetry, sensation intact distally Strength 5/5 in upper and lower extremities bilaterally CARDIAC: Tachycardic and regular, no murmurs rubs or gallops LUNGS: Poor breath sounds bilaterally, diminished ABDOMEN: Soft nontender, no guarding, no rigidity, no rebound, no psoas sign no obturator sign. Normoactive bowel sounds SKIN: Warm and dry to touch, no abrasions, contusions, or hematomas, no lacerations, no ecchymosis, no target lesions, and without ulcers EXTREMITIES: No clubbing cyanosis or edema, calves are bilaterally symmetrical, no Homans sign, no popliteal cord sign. Distal pulses equal and bilateral PSYCH: Normal affect without agitation or irritability Result Diagram: 06/27/17 0604 06/27/17 0604 Results 24 hrs Laboratory Tests Test 06/27/17 06:04 06/27/17 06:59 White Blood Count 4.710^3/ul Red Blood Count 3.7810^6/ul Hemoglobin 10.5g/dl Hematocrit 33.7% Mean Corpuscular Volume 89.2fl Mean Corpuscular Hemoglobin 27.8pg Mean Corpuscular Hemoglobin Concent 31.2g/dl Red Cell Distribution Width 18.4% Platelet Count 77878^3/UL Mean Platelet Volume 11.6fl Neutrophils % 67.3% Lymphocytes % 11.2% Monocytes % 11.8% Eosinophils % 8.0% Basophils % 1.5% Nucleated Red Blood Cells % 0.0/100WBC Neutrophils # 3.210^3/ul Lymphocytes # 0.510^3/ul Monocytes # 0.610^3/ul Eosinophils # 0.410^3/ul Basophils # 0.110^3/ul Nucleated Red Blood Cells # 0.010^3/ul Sodium Level 140mmol/L Potassium Level 5.9mmol/L Chloride Level 100mmol/L Carbon Dioxide Level 20mmol/L Anion Gap 26 Blood Urea Nitrogen 54mg/dl Creatinine 13.06mg/dl Glucose Level 88mg/dl Calcium Level 7.3mg/dl Troponin I 0.058ng/ml Prothrombin Time 17.3Sec Prothrombin Time Ratio 1.4 INR International Normalized Ratio 1.41 Activated Partial Thromboplast Time 39.4Sec Current Medications Medications (Trade) Dose Ordered Sig/Yocasta Route PRN Reason Start Time Stop Time Status Last Admin Dose Admin Albuterol (Proventil 0.5% (Neb)) 10 mg ONCE STAT INH 06/27/17 05:46 06/27/17 05:48 DC Ipratropium [place] 1 mg 1 mg ONCE STAT INH 06/27/17 05:46 06/27/17 05:48 DC Calcium Gluconate 1 gm/Sodium Chloride 110 ml @ 110 mls/hr ONCE ONCE IVPB 06/27/17 07:00 06/27/17 07:59 DC 06/27/17 07:21 Magnesium Sulfate (Magnesium Sulfate 2 Gm/50 ml) 50 ml @ 25 mls/hr ONCE ONCE IVPB 06/27/17 07:30 06/27/17 09:29 06/27/17 08:14 Ketorolac Tromethamine (Toradol) 15 mg ONCE STAT IV 06/27/17 07:12 06/27/17 07:23 DC 06/27/17 08:14 Methylprednisolone Sodium Succinate (Solu-Medrol) 125 mg ONCE ONCE IV 06/27/17 08:00 06/27/17 08:01 DC Procedures/[facility] IV line was established patient was placed on educational aide rhythm strip revealed a sinus tachycardia at 110 bpm with upright P and T waves. Patient was afebrile EKG performed, read by me revealed a sinus tachycardia at 104 bpm, left axis deviation, right bundle branch block, prolonged QT of 549 ms, no concerning ST elevations or depressions noted. One view chest x-ray performed, read by me revealed cardiomegaly and bilateral pulmonary edema consistent with fluid overload and congestive heart failure, hemodialysis catheter in the left chest. No acute infiltrates, no pneumothorax. I administered albuterol 10 mg via nebulizer and methylprednisolone 125 mg IV 1 , patient also received calcium gluconate 1 g IV. CBC revealed a mild leukopenia otherwise unremarkable, electrolytes revealed renal failure and hyperkalemia 5.9, calcium low at 7.3, troponin negative. Patient also received magnesium 2 g IV for QT prolongation and hyperkalemia. I also ordered Toradol 50 mg IV 1 for complaints of pain. Critical Care: Time: 40 minutes, this was time separate from other billable procedures. Treatments/Evaluations: Close monitoring and treatment of unstable vital signs, cardiorespiratory, and neurologic status, while maintaining tight balance of fluid, respiratory, and cardiac interventions. Patient admitted to telemetry setting for continued medical management and hemodialysis. Departure Diagnosis: Primary Impression: End stage kidney disease Additional Impressions: CHF (congestive heart failure) Congestive heart failure type: systolic Congestive heart failure chronicity: acute Qualified Code: I50.21 - Acute systolic congestive heart failure Acute pulmonary edema Acute hyperkalemia Hypocalcemia Prolonged QT interval Condition: ARLEEN Garza MD Jun 27, 2017 06:17
[2017-06-27 06:38] LABS: ABNORMAL IP MESSAGE 1; BASOPHIL # 0.1 10^3/ul (0.0-0.1); BASOPHILS % 1.5 % (0.0-2.0); EOSINOPHILS # 0.4 10^3/ul (0.0-0.5); HEMATOCRIT 33.7 % (42.0-52.0); HEMOGLOBIN 10.5 g/dl (14.0-18.0); LYMPHOCYTES # 0.5 10^3/ul (0.8-2.9); LYMPHOCYTES % 11.2 % (15.0-51.0); MEAN CORPUSCULAR HEMOGLOBIN 27.8 pg (29.0-33.0); MEAN CORPUSCULAR HGB CONC 31.2 g/dl (32.0-37.0); MEAN CORPUSCULAR VOLUME 89.2 fl (82.0-101.0); MEAN PLATELET VOLUME 11.6 fl (7.4-10.4); MONOCYTE # 0.6 10^3/ul (0.3-0.9); MONOCYTES % 11.8 % (0.0-11.0); NEUTROPHIL # 3.2 10^3/ul (1.6-7.5); NEUTROPHILS % 67.3 % (39.0-77.0); PLATELET COUNT 232 10^3/UL (140-415); POSITIVE DIFF @See below; RED BLOOD COUNT 3.78 10^6/ul (4.70-6.10); RED CELL DISTRIBUTION WIDTH 18.4 % (11.5-14.5); WHITE BLOOD COUNT 4.7 10^3/ul (4.8-10.8)
--- NOTE | 2017-06-27 06:54 | RADRPT ---
PROCEDURE: XR Chest. CLINICAL INDICATION: Shortness of breath. TECHNIQUE: Single portable view of the chest was obtained COMPARISON: CR CHEST 04/15/2016; CR CHEST 04/14/2016; CR CHEST 04/14/2016 FINDINGS: Left subclavian central venous catheter tip overlies the mid superior vena cava without evidence of a pneumothorax. Cardiomegaly with thoracic aortic ectasia is present. There is interval and increased moderately sev ere congestive heart failure. Interval dense opacification of the left base by combination of pleura l effusion with atelectasis and/or consolidation. Unchanged persistent right base opacification when considering differences in patient positioning. IMPRESSION: 1. Interval increased moderately severe congestive heart failure. 2. Interval dense opacification of the left base secondary to the combination of pleural fluid with atelectasis and/or consolidation. 3. Probably no change in the dense opacification of the right base when considering differences in patient positioning. 4. Stable cardiomegaly. 5. Left subclavian central venous catheter in satisfactory position without evidence of a pneumotho rax. RPTAT: HRS[facility] Physician Jocelynn Date Time Electronically viewed and signed by Physician Jocelynn on 06/27/2017 06:53 RR/
[2017-06-27 06:56] LABS: CALCIUM 7.3 mg/dl (8.4-10.2); CREATININE 13.06 mg/dl (0.61-1.24); POTASSIUM 5.9 mmol/L (3.5-5.1)
[2017-06-27] MEDS ORDERED: CALCIUM GLUCONATE 10% 1 GM in SOD CHLORIDE 0.9% 100 ML IVPB ONE (07:00)
[2017-06-27 07:06] LABS: TROPONIN-I 0.058 ng/ml (0.00-0.12)
[2017-06-27] MEDS ORDERED: KETOROLAC 15 MG INJ IV STA (07:12)
[2017-06-27] MEDS ORDERED: MAGNESIUM SULFATE 2 GM/50 ML 50 ML IVPB ONE (07:30)
[2017-06-27 07:31] LABS: INR 1.41; PROTIME 17.3 Sec (12.2-14.2); PT RATIO 1.4
[2017-06-27 07:32] LABS: PARTIAL THROMBOPLASTIN TIME 39.4 Sec (25.0-35.0)
[2017-06-27] MEDS ORDERED: METHYLPREDNISOLONE 125 MG INJ IV ONE (08:00)
--- NOTE | 2017-06-27 12:58 | CONS ---
DATE OF ADMISSION: 06/27/2017 DATE OF CONSULTATION: 06/27/2017 TYPE OF CONSULT: Nephrology. REASON FOR CONSULTATION: End-stage renal disease. PHYSICIAN REQUESTING CONSULT: HISTORY OF PRESENT ILLNESS: This is a 57-year-old male with a past medical history of end-stage kaitlin al disease on dialysis Sunday, Sunday, Sunday. Access is Perm-A-Cath. Last hemodialysis was Sun; history of COPD, CHF, who presents to [facility] with shortness of breath. T he patient states his last hemodialysis was Sunday. The patient was unable to go to dialysis 2 days ago due to shortness of breath. As a result, the patient was brought into [facility] Room for evaluation. Upon arrival, the patient had a chest x-ray which showed findings of mod erately severe CHF and opacities in the left base. In the emergency room, the patient was given IV Toradol, calcium gluconate and IV Solu-Medrol due to shortness of breath. The patient was also note d to be hyperkalemic with potassium 5.9. PAST MEDICAL HISTORY: History of end-stage renal disease, history of anemia, history of mineral bon e disorder, history of hypertension, history of seizures. PAST SURGICAL HISTORY: Status post PermCath placement. ALLERGIES: NO KNOWN DRUG ALLERGIES. FAMILY HISTORY: Noncontributory. SOCIAL HISTORY: Does not drink, smoke or do drugs. MEDICATIONS: The patient's medications have been reviewed. REVIEW OF SYSTEMS: A 14-point review of systems was conducted. Pertinent positives in HPI, otherwi se negative. PHYSICAL EXAMINATION: VITAL SIGNS: Blood pressure is 140/72, respirations 16, pulse 85. HEENT: Head is normocephalic. NECK: Supple. HEART: Regular rate. LUNGS: Show diminished breath sounds at base. ABDOMEN: Soft, nontender to palpation without rebound or guarding. EXTREMITIES: Negative for clubbing, cyanosis. Positive edema. DERMATOLOGIC: No rashes. MUSCULOSKELETAL: No joint effusions. NEUROLOGIC: No change in exam. MEDICATIONS: The patient's medications have been reviewed. LABORATORY DATA: Shows a white count of 4.7, hemoglobin 10.5, hematocrit 33.7, platelet count 232. Sodium 140, potassium 5.9, BUN 54, creatinine 13.06. IMAGING STUDIES: As stated in HPI. ASSESSMENT AND PLAN: This is a 57-year-old male who presents with: 1. End-stage renal disease. The patient is on dialysis Sunday, Sunday, Sunday with access Perm- A-Cath. Last hemodialysis was Sunday. Plan for urgent hemodialysis today. Will dialyze for 3 hour s, 2K bath, calcium 2.5, will ultrafiltrate as tolerated. 2. Volume overload secondary to end-stage renal disease. Continue ultrafiltration dialysis. 3. Hypertension. Continue current blood pressure regimen. Continue ultrafiltration dialysis. 4. Hyperkalemia. Etiology secondary to end-stage renal disease. We will dialyze on a 2 potassium bath. Continue renal diet. 5. Anemia. Monitor hemoglobin and hematocrit levels. Will give Epogen with hemodialysis. 6. Mineral bone disorder. Monitor calcium and phosphorus levels. 7. Seizure disorder. Continue current medical management. 8. History of coronary artery disease. Continue medical management. 9. Diabetes. Continue Accu-Cheks, insulin sliding scale. Thank you, . , for this interesting consult. It will be a pleasure to follow patient with yo u throughout the hospital course. Dictated By: KERI MEADE/LEAH Conf#: [id number] DID#: [id number]
--- NOTE | 2017-06-27 13:23 | HP ---
Date/Time of Note Date/Time of Note DATE: 06/27/17 TIME: 13:23 Assessment/Plan VTE Prophylaxis VTE Prophylaxis Intervention: SCD's Lines/Catheters IV Catheter Type (from [facility]): [place] [facility] Urinary Cath still in place: No Assessment/Plan Chief Complaint/Hosp Course 57-year-old male with a past medical history of end-stage renal disease on hemodialysis, presenting with shortness of breath who also missed 2 sessions of hemodialysis. 1. Acute on chronic CHF exacerbation secondary to volume overload secondary to missed hemodialysis. Patient also missed 2 dialysis sessions. -Cardiology consult for further management of heart failure. Patient also needs stat hemodialysis and we will request a nephrology consultation. -Monitor volume status closely. Obtain echocardiogram. 2. Acute hypoxic respiratory failure likely secondary to #1 versus COPD exacerbation -Start [id number] and as needed bronchodilators. Obtain ABG. Follow-up chest x-ray. Will also start patient on renally dosed Levaquin empirically as consolidation is also suspected by x-ray. 3. Hyperkalemia, secondary to missed hemodialysis. Status post treatment in the emergency room. -Follow-up with nephrology recommendations. -Monitor level in a.m. 4. End-stage renal disease, on hemodialysis Sunday, Sunday, Sunday. -Follow-up with nephrology recommendations on dialysis. 5. Cardiomyopathy with last known ejection fraction 30%. -Follow-up with 2D echocardiogram. Continue current medical management. 6. Coronary artery disease. -Continue home medications. 7. Type 2 diabetes. -Accu-Cheks/ISS. 8. Hypertension. -Resume home medications. 9. Anemia of chronic kidney disease. H&H stable. -Monitor closely. Patient also on Epogen per nephrology. 10. Hypothyroidism. -Resume home medications. 11. History of psych disorder, bipolar. -Resume home medications. 12. Seizure disorder. Currently no acute episodes. -Resume home medications. Prophylaxis: SCDs Patient will be started on carbohydrate controlled, renal diet. Follow-up with nephrology recommendations. Approximately 60 minutes was spent on this history and physical. Patient is seen in collaboration with . Problems: HPI/ROS Admit Date/Time Admit Date/Time Jun 27, 2017 at 07:43 Hx of Present Illness This is a 57-year-old male with a past medical history of end-stage renal disease who is also on dialysis Sunday, Sunday, Sunday, congestive heart failure, nicotine use, COPD, home oxygen use 4 L/min, anemia of chronic kidney disease, hypertension, seizure disorders, who presented to the emergency room with complaints of progressive difficulty with breathing which has been going on for a week. According to the patient, he also missed 2 sessions of hemodialysis. Patient denied any chest pain, palpitation, loss of consciousness , dizziness, numbness, tingling, nausea, vomiting, abdominal pain, or any focal deficits. Chest x-ray showed congestive heart failure. Consolidation could not excluded in the chest x-ray. Vital signs with saturation 87% on room air,Temperature 98.6, pulse rate 103 and blood pressure 152/101. CBC with WBC 4700, hemoglobin 10.5, hematocrit 33.7, potassium 5.9, BUN 54 and creatinine 13.06. Patient was treated in the emergency room with hyperkalemia protocol and was admitted for further evaluation. ROS A 12 point review of system was assessed and is negative other than what is mentioned in HPI. PMH/Family/Social Past Medical History See HPI Past Surgical History See HPI Past Surgical Hx: other Social History See HPI Smoking Status: Current every day smoker Exam/Review of Systems Vital Signs Vitals Vital Signs Date Time Temp Pulse Resp B/P Pulse Ox O2 Delivery O2 Flow Rate FiO2 06/27/17 12:08 Nasal Cannula 4.0 06/27/17 12:00 100 06/27/17 11:40 98.6 22 152/101 94 06/27/17 05:58 21 Exam Exam General: Well developed,adequately built -[place] male, in mild respiratory distress HEENT: Normocephalic, Atraumatic, No laceration or hematoma; Eyes: PEERL, Conjunctiva clear, Anicteric sclera Neck: Supple without any lymphadenopathy, nontender, no JVD, no carotid bruits, trachea midline, no thyromegaly Cardiac: S1, S2 auscultated, regular rhythm and rate, no mumurs or gallop Pulmonary: Crackles bilaterally. With mildly increased work of breathing. No wheezing. GI: Abdomen normal to inspection. Soft, non tender, non- distended, no masses, no rebound tenderness or guarding. Bowel sounds active on all four quadrants Genitourinary: Deferred Extremities: No cyanosis, clubbing, or edema. Pulses [2+] bilaterally. Full ROM on all four extremities. No focal weakness appreciated. Neurologic: Alert to person, place, time, and situation. Affect appropriate, intact sensation. Skin: Clean,dry, and intact. No ecchymosis, no rashes, or lesions Labs Result Diagram: 06/27/17 0604 06/27/17 0604 GABRIEL THOMASON NP Jun 27, 2017 13:23
[2017-06-27] MEDS: morphine 2 MG INJ IV PRN ×2 (13:58→22:16)
[2017-06-27] MEDS ORDERED: DOCUSATE SODIUM 100 MG CAP PO PRN (14:30)
[2017-06-27] MEDS ORDERED: NACL 0.9% 3 ML SYG IV SCH (14:30)
[2017-06-27] MEDS ORDERED: ALBUTEROL/IPRATROPIUM (NEB) 3 ML AMP HHN PRN (14:30)
[2017-06-27] MEDS ORDERED: ONDANSETRON 4 MG INJ IV PRN (14:30)
[2017-06-27] MEDS ORDERED: ACETAMINOPHEN 650 MG SUPP PR PRN (14:30)
[2017-06-27 14:38] LABS: AADO2 Arterial 103.9 mmHg (7.0-24.0); Allen Test ACCEPTAB; Arterial Base Excess -1.9 mmol/L (-3.0-3); Arterial COHb 1.3 % (0.0-3.0); Arterial Fraction of Oxyhgb 94.5 % (93.0-99.0); Arterial HCO3 22.6 mmol/L (22.0-26.0); Arterial MetHb 0.2 % (0.0-1.5); Arterial Total Hemglobin 13.1 g/dl (12.0-18.0); MODE NASAL CANNULA
[2017-06-27] MEDS: LEVOFLOXACIN 500MG/D5W (PMX) 100 ML IVPB SCH (14:51)
--- NOTE | 2017-06-27 16:28 | CONS ---
Date/Time of Note Date/Time of Note DATE: 06/27/17 TIME: 16:23 Assessment/Plan Assessment/Plan Additional Assessment/Plan Acute decompensated systolic congestive heart failure End-stage renal disease on hemodialysis Cardiomyopathy Hypertension Psychiatric disorder Seizure disorder -Patient with volume overload and decompensated systolic congestive heart failure likely secondary to noncompliance with hemodialysis. Patient was better after dialysis today. Continue fluid removal via hemodialysis as per our nephrology colleagues. Adjust beta-haven to Coreg and would start IGLESIA inhibitor as tolerated given history of cardiomyopathy. Continue aspirin and statin therapy if no complication. Consultation Date/Type/Reason Admit Date/Time Jun 27, 2017 at 07:43 Type of Consultation: cv Reason for Consultation Shortness of breath Hx of Present Illness This is a 57-year-old male with past medical history of end-stage renal disease on hemodialysis, systolic congestive heart failure, seizure disorder, psychiatric disorder who presents with progressive worsening shortness of breath over the past 1-2 weeks. Symptoms are worse with exertion and at times worse with lying down. He does admit to missing his past 2 hemodialysis sessions. He denies any chest pain but does complain of intermittent cough, fevers and chills. He denies any abdominal pain or nausea. He did have hemodialysis today and is feeling much better. 12 point review of systems was performed with all pertinent positives and negatives mentioned above and all else is negative Past Medical History Medical History: congestive heart failure, hypertension, renal disease Past Surgical History Past Surgical Hx: other (Hemodialysis catheter) Family History Significant Family History: no pertinent family hx Social History Alcohol Use: none Smoking Status: Current every day smoker Drug Use: other (Distant history of) Exam/Review of Systems Vital Signs Vitals Vital Signs Date Time Temp Pulse Resp B/P Pulse Ox O2 Delivery O2 Flow Rate FiO2 06/27/17 16:00 2.0 06/27/17 16:00 108 06/27/17 14:57 98.4 20 131/83 94 Nasal Cannula 06/27/17 05:58 21 Exam No apparent distress, no dyspnea with speaking Constitutional: alert, oriented Head: normocephalic Respiratory: other (Coarse breath sounds bilaterally with end expiratory wheezing) Cardiovascular: other (S1-S2 heard), regular rate and rhythm, systolic murmur Gastrointestinal: bowel sounds, non-tender, soft Extremities: edema (Trace) Results Result Diagram: 06/27/17 0604 06/27/17 0604 Results 24 hrs Laboratory Tests Test 06/27/17 06:04 06/27/17 06:59 06/27/17 14:14 White Blood Count 4.7 #L Red Blood Count 3.78 L Hemoglobin 10.5 L Hematocrit 33.7 L Mean Corpuscular Volume 89.2 Mean Corpuscular Hemoglobin 27.8 L Mean Corpuscular Hemoglobin Concent 31.2 L Red Cell Distribution Width 18.4 H Platelet Count 232 # Mean Platelet Volume 11.6 H Neutrophils % 67.3 Lymphocytes % 11.2 L Monocytes % 11.8 H Eosinophils % 8.0 H Basophils % 1.5 Nucleated Red Blood Cells % 0.0 Neutrophils # 3.2 Lymphocytes # 0.5 L Monocytes # 0.6 Eosinophils # 0.4 Basophils # 0.1 Nucleated Red Blood Cells # 0.0 Sodium Level 140 Potassium Level 5.9 H Chloride Level 100 Carbon Dioxide Level 20 L Anion Gap 26 H Blood Urea Nitrogen 54 H Creatinine 13.06 H Glucose Level 88 Calcium Level 7.3 L Troponin I 0.058 Prothrombin Time 17.3 #H Prothrombin Time Ratio 1.4 INR International Normalized Ratio 1.41 Activated Partial Thromboplast Time 39.4 H Blood Gas Specimen Source Blood arterial Arterial Blood Date Drawn 06/27/2017 2:30:07 PM Arterial Blood pH (Temp corrected) 7.395 Arterial Blood pCO2 (Temp correct) 37.8 Arterial Blood pO2 (Temp corrected) 87.3 Arterial Blood HCO3 22.6 Arterial Blood Base Excess -1.9 Arterial Blood Oxygen Saturation 95.9 Roe Test ACCEPTAB Arterial Blood Gas Puncture Site Right Radial Arterial Blood Carboxyhemoglobin 1.3 Arterial Blood Methemoglobin 0.2 Blood Gas A-a O2 Differential 103.9 H Oxyhemoglobin Percent 94.5 Total Hemoglobin 13.1 Blood Gas Temperature 37.0 Blood Gas Modality NASAL CANNULA FiO2 33.0 Blood Gas Notified Whom JLD Blood Gas Notified Time 06/27/2017 2:38:47 PM Medications Medications Current Medications Morphine Sulfate 2 mg 2 mg Q3 PRN IV PAIN Last administered on 06/27/17 13:58 ; Admin Dose 2 MG; Start 06/27/17 at 14:00 Levofloxacin/ Dextrose (Levaquin 500mg/ D5W 100 ml (Pmx)) 100 ml @ 100 mls/hr Q48H IVPB Last administered on 11/8/17at 14:51; Admin Dose 100 MLS/HR; Start 06/27/17 at 14:00 Aspirin (Halfprin) 81 mg DAILY PO ; Start 06/28/17 at 09:00 Atorvastatin Calcium (Lipitor) 20 mg HS PO ; Start 06/27/17 at 21:00 Gabapentin (Neurontin) 100 mg BID PO ; Start 06/27/17 at 21:00 Insulin Glargine (Lantus) 12 unit DAILY@20 SC ; Start 06/27/17 at 20:00 Lacosamide (Vimpat Liq) 150 mg BID PO ; Start 06/27/17 at 21:00 Metoprolol Tartrate (Lopressor) 25 mg Q12 PO ; Start 06/27/17 at 21:00 Quetiapine Fumarate (Seroquel) 400 mg HS PO ; Start 06/27/17 at 21:00 Quetiapine Fumarate (Seroquel) 100 mg DAILY PO ; Start 06/28/17 at 09:00 Sertraline HCl (Zoloft) 50 mg DAILY PO ; Start 06/28/17 at 09:00 Zolpidem Tartrate (Ambien) 10 mg QHS PRN PO INSOMNIA; Start 06/27/17 at 14:30 Ondansetron HCl (Zofran Inj) 4 mg Q6H PRN IV NAUSEA AND/OR VOMITING; Start 06/27/17 at 14:30 Acetaminophen (Tylenol Tab) 650 mg Q6H PRN PO PAIN LEVEL 1-3 OR FEVER; Start 06/27/17 at 14:30 Acetaminophen (Tylenol Supp) 650 mg Q6H PRN [place] PAIN LEVEL 1-3 OR FEVER; Start 06/27/17 at 14:30 Docusate Sodium (Colace) 100 mg Q12H PRN PO CONSTIPATION; Start 06/27/17 at 14: 30 Heparin Sodium (Porcine) (Heparin (5000 Units/0.5 ml)) 5,000 unit Q12 SC ; Start 06/27/17 at 21:00 Diagnostic Test (Pha) (Accu-Chek) 1 ea 02 XX ; Start 06/28/17 at 02:00 Procedures Procedures ECG demonstrates sinus tachycardia 104 bpm, right bundle branch block at 170 ms , nonspecific ST abnormalities Claude Moya DO Jun 27, 2017 16:28
[2017-06-27] MEDS: ALBUTEROL/IPRATROPIUM (NEB) 3 ML AMP HHN SCH ×2 (17:30→20:48)
[2017-06-27] MEDS: INSULIN ASPART [NOVOLOG] 3 ML PEN SC SCH ×3 (17:35→21:00)
[2017-06-27] MEDS ORDERED: LACOSAMIDE (100 MG/10 ML PO SYR) PO SCH (21:00)
[2017-06-27] MEDS ORDERED: METOPROLOL 25 MG TAB PO SCH (21:00)
[2017-06-27] MEDS: INSULIN GLARGINE [LANtus] 3 ML PEN SC SCH (21:12)
[2017-06-27] MEDS: GABAPENTIN 100 MG CAP PO SCH (21:12)
[2017-06-27] MEDS: LISINOPRIL 5 MG TAB PO SCH (21:13)
[2017-06-27] MEDS: ATORVASTATIN 20 MG TAB PO SCH (21:13)
[2017-06-27] MEDS: HEPARIN 5,000 UNIT/0.5 ML VIAL SC SCH (21:14)
[2017-06-27] MEDS: QUETIAPINE 100 MG TAB PO SCH (22:16)
[2017-06-27] MEDS: ZOLPIDEM 5 MG TAB PO PRN (23:14)
[2017-06-28] VITALS (22 sets, daily range): BP systolic 77–117; BP diastolic 54–77; PULSE 84–99; RESP 16–21
[2017-06-28] MEDS ORDERED: ACCU-CHEK XX SCH (02:00)
[2017-06-28] MEDS: ACCU-CHEK XX SCH (02:00)
[2017-06-28] MEDS: morphine 2 MG INJ IV PRN ×3 (05:02→13:42)
[2017-06-28] MEDS: LEVOTHYROXINE 150 MCG TAB PO SCH (06:36)
[2017-06-28] MEDS: INSULIN ASPART [NOVOLOG] 3 ML PEN SC SCH ×4 (08:00→20:28)
[2017-06-28] MEDS: ALBUTEROL/IPRATROPIUM (NEB) 3 ML AMP HHN SCH ×4 (08:11→21:14)
[2017-06-28 08:49] LABS: BASOPHIL # 0.1 10^3/ul (0.0-0.1); BASOPHILS % 0.8 % (0.0-2.0); EOSINOPHILS % 0.5 % (0.0-7.0); HEMATOCRIT 37.1 % (42.0-52.0); HEMOGLOBIN 11.3 g/dl (14.0-18.0); LYMPHOCYTES # 0.8 10^3/ul (0.8-2.9); LYMPHOCYTES % 11.5 % (15.0-51.0); MEAN CORPUSCULAR HEMOGLOBIN 26.8 pg (29.0-33.0); MEAN CORPUSCULAR HGB CONC 30.5 g/dl (32.0-37.0); MEAN CORPUSCULAR VOLUME 87.9 fl (82.0-101.0); MONOCYTE # 0.8 10^3/ul (0.3-0.9); MONOCYTES % 12.8 % (0.0-11.0); NEUTROPHIL # 4.9 10^3/ul (1.6-7.5); NEUTROPHILS % 73.9 % (39.0-77.0); PLATELET COUNT 235 10^3/UL (140-415); RED BLOOD COUNT 4.22 10^6/ul (4.70-6.10); RED CELL DISTRIBUTION WIDTH 18.6 % (11.5-14.5); WHITE BLOOD COUNT 6.6 10^3/ul (4.8-10.8)
[2017-06-28] MEDS: SERTRALINE 50 MG TAB PO SCH (08:54)
[2017-06-28] MEDS: ACETAMINOPHEN 325 MG TAB PO PRN ×2 (08:54→13:49)
[2017-06-28] MEDS: GABAPENTIN 100 MG CAP PO SCH ×2 (08:55→20:38)
[2017-06-28] MEDS: ASPIRIN (EC) 81 MG TAB PO SCH (08:55)
[2017-06-28] MEDS: QUETIAPINE 100 MG TAB PO SCH ×2 (08:55→20:38)
[2017-06-28] MEDS: LACOSAMIDE (100 MG/10 ML PO SYR) PO SCH ×2 (08:59→21:08)
[2017-06-28 09:11] LABS: CALCIUM 7.4 mg/dl (8.4-10.2); CHOL/HDL RATIO 2.9 RATIO; CREATININE 11.54 mg/dl (0.61-1.24); MAGNESIUM 2.1 mg/dl (1.7-2.5); PHOSPHORUS 6.6 mg/dl (2.5-4.9); POTASSIUM 5.2 mmol/L (3.5-5.1)
[2017-06-28] MEDS: HEPARIN 5,000 UNIT/0.5 ML VIAL SC SCH ×2 (09:16→20:42)
--- NOTE | 2017-06-28 09:24 | PN ---
DATE: 06/28/2017 SUBJECTIVE: The patient had hemodialysis yesterday, tolerated it well. No other events noted. OBJECTIVE: VITAL SIGNS: Blood pressure is 117/77, temperature 98.3, pulse 97, respiration 18. HEENT: Head is normocephalic. NECK: Supple. HEART: Regular rate. LUNGS: Show diminished breath sounds at the base. ABDOMEN: Soft, nontender to palpation. No rebound or guarding. EXTREMITIES: Negative for clubbing, cyanosis, no edema. DERMATOLOGIC: No rashes. MUSCULOSKELETAL: No joint effusions. NEUROLOGIC: No change in exam. MEDICATIONS: The patient's medications have been reviewed. LABORATORY DATA: Currently pending. ASSESSMENT AND PLAN: 1. End-stage renal disease. The patient had urgent hemodialysis yesterday. Plan for dialysis agai n today. Will dialyze for 3 hours, 3 K bath, calcium 2.5, we will ultrafiltrate as tolerated. 2. Volume overload secondary to end-stage renal disease. Continue ultrafiltration dialysis. 3. Hypertension. Continue current blood pressure regimen. Continue ultrafiltration with dialysis with volume removal. 4. Hypokalemia. Continue low-potassium diet. Continue low-potassium bath with hemodialysis. 5. Anemia. Monitor hemoglobin and hematocrit levels. Will give Epogen as needed. 6. Mineral bone disorder. Monitor calcium and phosphorus levels. 7. Seizure disorder. Continue medical management. 8. History of coronary artery disease. 9. Diabetes. Continue Accu-Cheks, insulin sliding scale. Dictated By: KERI MEADE/LEAH Conf#: [id number] DID#: [id number]
[2017-06-28 09:36] LABS: THYROID STIMULATING HORMONE 3.86 MIU/L (0.465-4.680)
--- NOTE | 2017-06-28 12:27 | PN ---
Date/Time of Note Date/Time of Note DATE: 06/28/17 TIME: 12:27 Assessment/Plan VTE Prophylaxis VTE Prophylaxis Intervention: heparin Lines/Catheters IV [facility] Type [facility]from [facility] Urinary Cath still in place: No Assessment/Plan Chief Complaint/Hosp Course 57-year-old male with a past medical history of end-stage renal disease on hemodialysis, presenting with shortness of breath who also missed 2 sessions of hemodialysis. 1. Acute on chronic CHF exacerbation secondary to volume overload secondary to missed hemodialysis. Clinically improved. -Cardiology evaluation appreciated. Patient is now on maximal medical management on beta haven/IGLESIA inhibitor/aspirin/statin. -Monitor volume status closely. Follow-up echocardiogram. 2. Acute hypoxic respiratory failure likely secondary to #1 versus COPD exacerbation. Resolved. -Continue as needed bronchodilators. -Follow-up chest x-ray. 3. Hyperkalemia with ESRD. -Follow-up with nephrology recommendations. 4. End-stage renal disease, on hemodialysis Sunday, Sunday, Sunday. -Follow-up with nephrology recommendations on dialysis. 5. Cardiomyopathy with last known ejection fraction 30%. -Follow-up with 2D echocardiogram. Continue current medical management. 6. Coronary artery disease. -Continue home medications. 7. Type 2 diabetes. -Accu-Cheks/ISS. 8. Hypertension. -Continue antihypertensives. 9. Anemia of chronic kidney disease. H&H stable. -Monitor closely. Patient also on Epogen per nephrology. 10. Hypothyroidism. -On Synthroid. 11. History of psych disorder, bipolar. -Continue home medications. 12. Seizure disorder. Currently no acute episodes. -Continue home medications. Prophylaxis: SCDs Follow-up with cardiology and nephrology recommendations. Estimate discharge planning in 24-48 hours. Patient is seen in collaboration with . Problems: Subjective 24 Hr Interval Summary Free Text/Dictation Today patient with much improvement in his symptoms. He did not have any further shortness of breath. Patient is scheduled for another session of hemodialysis today. Exam/Review of Systems Vital Signs Vitals Vital Signs Date Time Temp Pulse Resp B/P Pulse Ox O2 Delivery O2 Flow Rate FiO2 06/28/17 12:04 86 06/28/17 11:57 97.9 17 91/55 94 06/28/17 08:21 Nasal Cannula 2.0 06/27/17 05:58 21 Intake and Output 06/27/17 06/27/17 06/28/17 15:00 23:00 07:00 Intake Total 500 ml 360 ml 500 ml Output Total 4500 ml Balance -4000 ml 360 ml 500 ml Exam General: Well developed,adequately built -Chinese male, in mild respiratory distress HEENT: Normocephalic, Atraumatic, No laceration or hematoma; Eyes: PEERL, Conjunctiva clear, Anicteric sclera Neck: Supple without any lymphadenopathy, nontender, no JVD, no carotid bruits, trachea midline, no thyromegaly Cardiac: S1, S2 auscultated, regular rhythm and rate, no mumurs or gallop Pulmonary: Diminished bibasilar. No adventitious sounds. GI: Abdomen normal to inspection. Soft, non tender, non- distended, no masses, no rebound tenderness or guarding. Bowel sounds active on all four quadrants Genitourinary: Deferred Extremities: No cyanosis, clubbing, or edema. Pulses [2+] bilaterally. Full ROM on all four extremities. No focal weakness appreciated. Neurologic: Alert to person, place, time, and situation. Affect appropriate, intact sensation. Skin: Clean,dry, and intact. No ecchymosis, no rashes, or lesions Results Result Diagram: 06/28/1783006/28/17830 Results 24 hrs Laboratory Tests Test 06/27/17 14:14 06/27/17 17:07 06/27/17 21:10 06/28/17 08:31 Blood Gas Specimen Source Blood arterial Arterial Blood Date Drawn 06/27/2017 2:30:07 PM Arterial Blood pH (Temp corrected) 7.395 Arterial Blood pCO2 (Temp correct) 37.8 Arterial Blood pO2 (Temp corrected) 87.3 Arterial Blood HCO3 22.6 Arterial Blood Base Excess -1.9 Arterial Blood Oxygen Saturation 95.9 Roe Test ACCEPTAB Arterial Blood Gas Puncture Site Right Radial Arterial Blood Carboxyhemoglobin 1.3 Arterial Blood Methemoglobin 0.2 Blood Gas A-a O2 Differential 103.9 H Oxyhemoglobin Percent 94.5 Total Hemoglobin 13.1 Blood Gas Temperature 37.0 Blood Gas Modality NASAL CANNULA FiO2 33.0 Blood Gas Notified Whom JLD Blood Gas Notified Time 06/27/2017 2:38:47 PM Bedside Glucose 184 120 White Blood Count 6.6 # Red Blood Count 4.22 L Hemoglobin 11.3 L Hematocrit 37.1 L Mean Corpuscular Volume 87.9 Mean Corpuscular Hemoglobin 26.8 L Mean Corpuscular Hemoglobin Concent 30.5 L Red Cell Distribution Width 18.6 H Platelet Count 235 Mean Platelet Volume 11.0 H Neutrophils % 73.9 Lymphocytes % 11.5 L Monocytes % 12.8 H Eosinophils % 0.5 Basophils % 0.8 Nucleated Red Blood Cells % 0.0 Neutrophils # 4.9 Lymphocytes # 0.8 Monocytes # 0.8 Eosinophils # 0.0 Basophils # 0.1 Nucleated Red Blood Cells # 0.0 Sodium Level 141 Potassium Level 5.2 H Chloride Level 100 Carbon Dioxide Level 25 Anion Gap 21 H Blood Urea Nitrogen 52 H Creatinine 11.54 H Glucose Level 75 Hemoglobin A1c 5.5 Calcium Level 7.4 L Phosphorus Level 6.6 H Magnesium Level 2.1 Triglycerides Level 65 Cholesterol Level 87 L LDL Cholesterol, Calculated 44 HDL Cholesterol 30 Cholesterol/HDL Ratio 2.9 Thyroid Stimulating Hormone (TSH) 3.860 Test 06/28/17 08:34 06/28/17 11:51 Bedside Glucose 79 86 Medications Medications Current Medications Morphine Sulfate 2 mg 2 mg Q3 PRN IV PAIN Last administered on 06/28/17 08:54 ; Admin Dose 2 MG; Start 06/27/17 at 14:00 Levofloxacin/ Dextrose (Levaquin 500mg/ D5W 100 ml (Pmx)) 100 ml @ 100 mls/hr Q48H IVPB Last administered on 06/27/17 14:51; Admin Dose 100 MLS/HR; Start 06/27/17 at 14:00 Aspirin (Halfprin) 81 mg DAILY PO Last administered on 06/28/17 08:55; Admin Dose 81 MG; Start 06/28/17 at 09:00 Atorvastatin Calcium (Lipitor) 20 mg HS PO Last administered on 06/27/17 21:13 ; Admin Dose 20 MG; Start 06/27/17 at 21:00 Gabapentin (Neurontin) 100 mg BID PO Last administered on 06/28/17 08:55; Admin Dose 100 MG; Start 06/27/17 at 21:00 Insulin Glargine (Lantus) 12 unit DAILY@20 SC Last administered on 06/27/17 21 :12; Admin Dose 12 UNIT; Start 06/27/17 at 20:00 Quetiapine Fumarate (Seroquel) 400 mg HS PO Last administered on 06/27/17 22: 16; Admin Dose 400 MG; Start 06/27/17 at 21:00 Quetiapine Fumarate (Seroquel) 100 mg DAILY PO Last administered on 06/28/17 08:55; Admin Dose 100 MG; Start 06/28/17 at 09:00 Sertraline HCl (Zoloft) 50 mg DAILY PO Last administered on 06/28/17 08:54; Admin Dose 50 MG; Start 06/28/17 at 09:00 Zolpidem Tartrate (Ambien) 10 mg QHS PRN PO INSOMNIA Last administered on 23:14; Admin Dose 10 MG; Start 06/27/17 at 14:30 Ondansetron HCl (Zofran Inj) 4 mg Q6H PRN IV NAUSEA AND/OR VOMITING; Start 06/27/17 at 14:30 Acetaminophen (Tylenol Tab) 650 mg Q6H PRN PO PAIN LEVEL 1-3 OR FEVER Last administered on 06/28/17 08:54; Admin Dose 650 MG; Start 06/27/17 at 14:30 Acetaminophen (Tylenol Supp) 650 mg Q6H PRN [place] PAIN LEVEL 1-3 OR FEVER; Start 06/27/17 at 14:30 Docusate Sodium (Colace) 100 mg Q12H PRN PO CONSTIPATION; Start 06/27/17 at 14: 30 Heparin Sodium (Porcine) (Heparin (5000 Units/0.5 ml)) 5,000 unit Q12 SC Last administered on 06/28/17 09:16; Admin Dose 5,000 UNIT; Start 06/27/17 at 21:00 Diagnostic Test (Pha) (Accu-Chek) 1 ea 02 XX ; Start 06/28/17 at 02:00 Carvedilol (Coreg) 3.125 mg BID PO Last administered on 06/28/17 08:56; Admin Dose 3.125 MG; Start 06/27/17 at 21:00 Lisinopril (Zestril) 5 mg Q24H PO Last administered on 06/27/17 21:13; Admin Dose 5 MG; Start 06/27/17 at 21:00 Lacosamide (Vimpat Liq) 150 mg BID PO Last administered on 06/28/17t 08:59; Admin Dose 150 MG; Start 06/28/17 at 09:00 GABRIEL THOMASON NP Jun 28, 2017 12:27
--- NOTE | 2017-06-28 15:34 | RADRPT ---
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 Physician: GABRIEL THOMASON Quality: Technically Difficult Study Procedures: Transthoracic echocardiogram with complete 2D, M-Mode, and doppler examination. Indications: Congestive Heart Failure. 2D/M Mode Doppler Measurement Value Normal Ranges Measurement Value Normal Ranges LVIDd 2D 5.7 3.5 - 5.6 cm AV Peak Conrad 1.1 m/sec LVIDs 2D 4.2 2.1 - 4.1 cm AV Peak PG 5.0 mmHg FS 2D 26.4 % LVOT Peak Conrad 0.6 m/sec LVPWd 2D 1.3 0.6 - 1.1 cm LVOT Peak PG 1.0 mmHg IVSd 2D 1.2 0.6 - 1.1 cm IVS/LVPW 2D 1.0 AoR Diam 2D 3.5 2.0 - 3.7 cm LA/Ao 2D 1 0 - 1 EDV 2D 183.0 cm3 ESV 2D 73.0 cm3 LA Dimen 2D 3.8 2.3 - 4.0 cm Findings Left Ventricle: Normal left ventricular cavity size. Mild concentric left ventricular hypertrophy. Severe left ventricular systolic dysfunction. Ejection fraction is visually estimated at 30 %. Tissue Doppler/Mitral Doppler indices are consistent with impaired relaxation (Stage I diastolic dysfunction). Right Ventricle: Normal right ventricular size. Normal right ventricular systolic function. Left Atrium: The left atrium is normal in size. Right Atrium: The right atrium is normal in size. Mitral Valve: Mitral valve leaflets appear mildly thickened. Mild mitral annular calcification. Mild to moderate mitral valve regurgitation. Aortic Valve: No significant aortic stenosis or insufficiency. Aortic cusps appear mildly calcified. Tricuspid Valve: Normal appearance and function of the tricuspid valve with trace physiologic regurgitation. Pulmonic Valve: Pulmonic valve not well visualized. Pericardium: Normal pericardium with no significant pericardial effusion. Aorta: Normal aortic root. IVC: Normal size and normal respiratory collapse consistent with normal right atrial pressure. Conclusions 1.Normal left ventricular cavity size. Mild concentric left ventricular hypertrophy. Severe left ventricular systolic dysfunction. Ejection fraction is visually estimated at 30 %. Tissue Doppler/Mitral Doppler indices are consistent with impaired relaxation (Stage I diastolic dysfunction). 2.Normal right ventricular size. Normal right ventricular systolic function. 3.The left atrium is normal in size. 4.The right atrium is normal in size. 5.Mild to moderate mitral valve regurgitation. 6.No significant valvular stenosis or regurgitation seen of remaining visualized valves. 7.Normal pericardium with no significant pericardial effusion. Electronically Signed By: Claude Moya 28-Jun-2017 15:34:07 -0800 Patient Name: CHITRA VILLALPANDO Study Date: 28-Jun-2017 [id number]
--- NOTE | 2017-06-28 17:52 | CONS ---
Date/Time of Note Date/Time of Note DATE: 06/28/17 TIME: 17:50 Assessment/Plan Assessment/Plan Additional Assessment/Plan Acute decompensated systolic congestive heart failure End-stage renal disease on hemodialysis Cardiomyopathy with ejection fraction 30% Mitral valve regurgitation Hypertension Psychiatric disorder Seizure disorder -Patient with progressive improvement in symptoms are undergoing 2 sessions of hemodialysis. Would continue beta-haven and IGLESIA inhibitor as blood pressure permits. Fluid management via hemodialysis as per our nephrology colleagues. Consultation Date/Type/Reason Admit Date/Time Jun 27, 2017 at 07:43 Initial Consult Date Type of Consultation: cv 24 HR Interval Summary Free Text/Dictation Feeling better today, less shortness of breath, denies dizziness or chest pain Exam/Review of Systems Vital Signs Vitals Vital Signs Date Time Temp Pulse Resp B/P Pulse Ox O2 Delivery O2 Flow Rate FiO2 06/28/17 17:21 89 06/28/17 17:21 16 06/28/17 16:36 95 Nasal Cannula 3.0 06/28/17 15:45 98.7 90/56 06/27/17 05:58 21 Intake and Output 06/27/17 06/27/17 06/28/17 14:59 22:59 06:59 Intake Total 500 ml 360 ml 500 ml Output Total 4500 ml Balance -4000 ml 360 ml 500 ml Exam No apparent distress, undergoing hemodialysis Constitutional: alert, oriented Head: normocephalic Respiratory: other (Coarse breath sounds bilaterally, no wheezing) Cardiovascular: other (S1-S2 heard), regular rate and rhythm, systolic murmur Gastrointestinal: bowel sounds, non-tender, soft Extremities: edema Results Result Diagram: 06/28/17 0831 06/28/17 0831 Results 24 hrs Laboratory Tests Test 06/27/17 21:10 06/28/17 08:31 06/28/17 08:34 06/28/17 11:51 Bedside Glucose 120 79 86 White Blood Count 6.6 # Red Blood Count 4.22 L Hemoglobin 11.3 L Hematocrit 37.1 L Mean Corpuscular Volume 87.9 Mean Corpuscular Hemoglobin 26.8 L Mean Corpuscular Hemoglobin Concent 30.5 L Red Cell Distribution Width 18.6 H Platelet Count 235 Mean Platelet Volume 11.0 H Neutrophils % 73.9 Lymphocytes % 11.5 L Monocytes % 12.8 H Eosinophils % 0.5 Basophils % 0.8 Nucleated Red Blood Cells % 0.0 Neutrophils # 4.9 Lymphocytes # 0.8 Monocytes # 0.8 Eosinophils # 0.0 Basophils # 0.1 Nucleated Red Blood Cells # 0.0 Sodium Level 141 Potassium Level 5.2 H Chloride Level 100 Carbon Dioxide Level 25 Anion Gap 21 H Blood Urea Nitrogen 52 H Creatinine 11.54 H Glucose Level 75 Hemoglobin A1c 5.5 Calcium Level 7.4 L Phosphorus Level 6.6 H Magnesium Level 2.1 Triglycerides Level 65 Cholesterol Level 87 L LDL Cholesterol, Calculated 44 HDL Cholesterol 30 Cholesterol/HDL Ratio 2.9 Thyroid Stimulating Hormone (TSH) 3.860 Test 06/28/17 17:34 Bedside Glucose 85 Medications Medications Current Medications Morphine Sulfate 2 mg 2 mg Q3 PRN IV PAIN Last administered on 06/28/17 13:42 ; Admin Dose 2 MG; Start 06/27/17 at 14:00 Levofloxacin/ Dextrose (Levaquin 500mg/ D5W 100 ml (Pmx)) 100 ml @ 100 mls/hr Q48H IVPB Last administered on 06/27/17 14:51; Admin Dose 100 MLS/HR; Start 06/27/17 at 14:00 Aspirin (Halfprin) 81 mg DAILY PO Last administered on 06/28/17 08:55; Admin Dose 81 MG; Start 06/28/17 at 09:00 Atorvastatin Calcium (Lipitor) 20 mg HS PO Last administered on 06/27/17 21:13 ; Admin Dose 20 MG; Start 06/27/17 at 21:00 Gabapentin (Neurontin) 100 mg BID PO Last administered on 06/28/17 08:55; Admin Dose 100 MG; Start 06/27/17 at 21:00 Insulin Glargine (Lantus) 12 unit DAILY@20 SC Last administered on 06/27/17 21 :12; Admin Dose 12 UNIT; Start 06/27/17 at 20:00 Quetiapine Fumarate (Seroquel) 400 mg HS PO Last administered on 06/27/17 22: 16; Admin Dose 400 MG; Start 06/27/17 at 21:00 Quetiapine Fumarate (Seroquel) 100 mg DAILY PO Last administered on 06/28/17 08:55; Admin Dose 100 MG; Start 06/28/17 at 09:00 Sertraline HCl (Zoloft) 50 mg DAILY PO Last administered on 06/28/17 08:54; Admin Dose 50 MG; Start 06/28/17 at 09:00 Zolpidem Tartrate (Ambien) 10 mg QHS PRN PO INSOMNIA Last administered on 23:14; Admin Dose 10 MG; Start 06/27/17 at 14:30 Ondansetron HCl (Zofran Inj) 4 mg Q6H PRN IV NAUSEA AND/OR VOMITING; Start 06/27/17 at 14:30 Acetaminophen (Tylenol Tab) 650 mg Q6H PRN PO PAIN LEVEL 1-3 OR FEVER Last administered on 06/28/17 13:49; Admin Dose 650 MG; Start 06/27/17 at 14:30 Acetaminophen (Tylenol Supp) 650 mg Q6H PRN [place] PAIN LEVEL 1-3 OR FEVER; Start 06/27/17 at 14:30 Docusate Sodium (Colace) 100 mg Q12H PRN PO CONSTIPATION; Start 06/27/17 at 14: 30 Heparin Sodium (Porcine) (Heparin (5000 Units/0.5 ml)) 5,000 unit Q12 SC Last administered on 06/28/17 09:16; Admin Dose 5,000 UNIT; Start 06/27/17 at 21:00 Diagnostic Test (Pha) (Accu-Chek) 1 ea 02 XX ; Start 06/28/17 at 02:00 Carvedilol (Coreg) 3.125 mg BID PO Last administered on 06/28/17 08:56; Admin Dose 3.125 MG; Start 06/27/17 at 21:00 Lisinopril (Zestril) 5 mg Q24H PO Last administered on 06/27/17 21:13; Admin Dose 5 MG; Start 06/27/17 at 21:00 Lacosamide (Vimpat Liq) 150 mg BID PO Last administered on 06/28/17 08:59; Admin Dose 150 MG; Start 06/28/17 at 09:00 Claude Moya DO Jun 28, 2017 17:51
[2017-06-28] MEDS ORDERED: SOD CHLORIDE 0.9% 250 ML IV ONE (19:00)
[2017-06-28] MEDS: INSULIN GLARGINE [LANtus] 3 ML PEN SC SCH (20:00)
[2017-06-28] MEDS: ATORVASTATIN 20 MG TAB PO SCH (20:38)
[2017-06-28] MEDS: LISINOPRIL 5 MG TAB PO SCH (20:38)
[2017-06-28] MEDS ORDERED: traMADol 50 MG TAB PO PRN (21:00)
[2017-06-28] MEDS ORDERED: KETOROLAC 30 MG INJ IV PRN (21:00)
[2017-06-28] MEDS ORDERED: KETOROLAC 15 MG INJ IV PRN (21:00)
[2017-06-28] MEDS ORDERED: MIDODRINE 5 MG TAB PO ONE (23:30)
[2017-06-29] VITALS (13 sets, daily range): BP systolic 79–111; BP diastolic 48–78; PULSE 95–104; RESP 16–20
[2017-06-29] MEDS: ACCU-CHEK XX SCH (02:00)
[2017-06-29] MEDS ORDERED: SOD CHLORIDE 0.9% 250 ML IV ONE ×2 (02:00→04:30)
[2017-06-29] MEDS: ALBUMIN HUMAN 25% 100 ML IV SCH ×2 (02:09→09:11)
[2017-06-29] MEDS: morphine 2 MG INJ IV PRN ×5 (02:41→21:37)
[2017-06-29] MEDS: LEVOTHYROXINE 150 MCG TAB PO SCH (06:18)
[2017-06-29 07:28] LABS: EOSINOPHILS % 3.3 % (0.0-7.0); HEMOGLOBIN 10.7 g/dl (14.0-18.0); LYMPHOCYTES % 15.8 % (15.0-51.0); MEAN CORPUSCULAR HEMOGLOBIN 26.4 pg (29.0-33.0); MEAN CORPUSCULAR HGB CONC 29.7 g/dl (32.0-37.0); MEAN CORPUSCULAR VOLUME 88.9 fl (82.0-101.0); MEAN PLATELET VOLUME 11.6 fl (7.4-10.4); MONOCYTES % 10.8 % (0.0-11.0); PLATELET COUNT 213 10^3/UL (140-415); RED BLOOD COUNT 4.05 10^6/ul (4.70-6.10); RED CELL DISTRIBUTION WIDTH 18.7 % (11.5-14.5); WHITE BLOOD COUNT 7.2 10^3/ul (4.8-10.8)
[2017-06-29 07:29] LABS: BASOPHIL # 0.1 10^3/ul (0.0-0.1); EOSINOPHILS # 0.2 10^3/ul (0.0-0.5); LYMPHOCYTES # 1.1 10^3/ul (0.8-2.9); MONOCYTE # 0.8 10^3/ul (0.3-0.9)
--- NOTE | 2017-06-29 07:42 | RADRPT ---
PROCEDURE: XR Chest. CLINICAL INDICATION: Shortness of breath. Heart failure. TECHNIQUE: Single portable view of the chest was obtained. COMPARISON: 06/27/2017 and additional priors FINDINGS: Left IJ PermCath tip over the cavoatrial junction. Stable cardiomediastinal silhouette. Improved aer ation with residual bilateral basilar air space opacities and small pleural effusions.. No evidence of pneumothorax. IMPRESSION: 1. Left IJ PermCath tip in appropriate position. 2. Improved aeration with residual bilateral basilar airspace opacities and pleural effusions consis tent with resolving pulmonary edema. RPTAT:AAJJ Physician Beny Date Time Electronically viewed and signed by Jagdish Oliva Physician on 06/29/2017 07:42 /
[2017-06-29 07:55] LABS: CALCIUM 7.3 mg/dl (8.4-10.2); CREATININE 9.31 mg/dl (0.61-1.24); MAGNESIUM 1.8 mg/dl (1.7-2.5); PHOSPHORUS 5.7 mg/dl (2.5-4.9); POTASSIUM 4.6 mmol/L (3.5-5.1)
[2017-06-29] MEDS: INSULIN ASPART [NOVOLOG] 3 ML PEN SC SCH ×4 (08:00→20:46)
[2017-06-29] MEDS: ALBUTEROL/IPRATROPIUM (NEB) 3 ML AMP HHN SCH ×4 (08:50→20:03)
--- NOTE | 2017-06-29 08:55 | PN ---
DATE: 06/29/2017 SUBJECTIVE: The patient is stable. No events overnight. No fevers, chills, nausea, vomiting. OBJECTIVE: VITAL SIGNS: Blood pressure is 85/55, respirations 17, pulse 94, temperature 98.2. HEENT: Head is normocephalic. NECK: Supple. HEART: Regular rate. LUNGS: Show diminished breath sounds at base. ABDOMEN: Soft, nontender to palpation. No rebound or guarding. EXTREMITIES: Negative for clubbing, cyanosis. DERMATOLOGIC: No rashes. MUSCULOSKELETAL: No joint effusions. NEUROLOGIC: No change in exam. MEDICATIONS: The patient's medications have been reviewed. LABORATORY DATA: Showed sodium 142, potassium 4.6, BUN 41, creatinine 9.31, white count 7.2, hemogl obin 10.7, hematocrit 36.0, platelet count 213. ASSESSMENT AND PLAN: 1. End-stage renal disease. The patient had hemodialysis last 2 days, tolerated well. Anticipate dialysis again tomorrow. 2. Volume overload secondary to end-stage renal disease. The patient is clinically improving. Con tinue ultrafiltration with hemodialysis. 3. Hypertension. Blood pressure controlled. Continue current medical management. 4. Hyperkalemia, resolved. 5. Anemia. Monitor hemoglobin and hematocrit levels. Continue irrigation with dialysis. 6. Mineral bone disorder. Continue to monitor calcium and phosphorus levels. 7. Seizure disorder. Continue current medical management. 8. History of coronary artery disease. 9. Diabetes. Continue Accu-Cheks and insulin sliding scale. Dictated By: KERI MEADE/LEAH Conf#: [id number] DID#: [id number]
[2017-06-29] MEDS ORDERED: MIDODRINE 5 MG TAB PO SCH (09:00)
[2017-06-29] MEDS: GABAPENTIN 100 MG CAP PO SCH ×2 (09:14→20:48)
[2017-06-29] MEDS: ASPIRIN (EC) 81 MG TAB PO SCH (09:14)
[2017-06-29] MEDS: QUETIAPINE 100 MG TAB PO SCH ×2 (09:14→20:46)
[2017-06-29] MEDS: SERTRALINE 50 MG TAB PO SCH (09:21)
[2017-06-29] MEDS: HEPARIN 5,000 UNIT/0.5 ML VIAL SC SCH ×2 (10:07→20:44)
[2017-06-29] MEDS: LACOSAMIDE (100 MG/10 ML PO SYR) PO SCH ×2 (12:11→20:50)
--- NOTE | 2017-06-29 12:18 | CONS ---
Date/Time of Note Date/Time of Note DATE: 06/29/17 TIME: 12:14 Assessment/Plan Assessment/Plan Additional Assessment/Plan Acute decompensated systolic congestive heart failure End-stage renal disease on hemodialysis Cardiomyopathy with ejection fraction 30% Mitral valve regurgitation Hypertension Psychiatric disorder Seizure disorder -Patient with progressive improvement in symptoms after undergoing hemodialysis. Blood pressure has been on the lower end and has been started on midodrine. Given patient put on alpha agonist, would DC beta-haven and lisinopril at the current time. Would use midodrine only as needed for hypotension given alpha agonist could worsen patient's congestive heart failure. Fluid management via hemodialysis as per our nephrology colleagues. Consultation Date/Type/Reason Admit Date/Time Jun 27, 2017 at 07:43 Type of Consultation: cv 24 HR Interval Summary Free Text/Dictation Patient overall feeling better, denies shortness of breath. Episode of mild dizziness last night. Exam/Review of Systems Vital Signs Vitals Vital Signs Date Time Temp Pulse Resp B/P Pulse Ox O2 Delivery O2 Flow Rate FiO2 06/29/17 08:00 100 06/29/17 07:29 98.2 17 85/55 96 06/29/17 01:57 3.0 06/28/17 21:15 Nasal Cannula 06/27/17 05:58 21 Intake and Output 06/28/17 06/28/17 06/29/17 15:00 23:00 07:00 Intake Total 1400 ml 900 ml Output Total 4600 ml Balance -3200 ml 900 ml Exam No apparent distress Constitutional: alert, oriented Head: normocephalic Respiratory: other (Coarse breath sounds bilaterally, no wheezing) Cardiovascular: other (S1-S2 heard), regular rate and rhythm Gastrointestinal: bowel sounds, non-tender, soft Extremities: edema Results Result Diagram: 06/29/17 0656 06/29/17 0656 Results 24 hrs Laboratory Tests Test 06/28/17 17:34 06/28/17 19:32 06/29/17 06:56 06/29/17 08:45 Bedside Glucose 85 78 87 White Blood Count 7.2 Red Blood Count 4.05 L Hemoglobin 10.7 L Hematocrit 36.0 L Mean Corpuscular Volume 88.9 Mean Corpuscular Hemoglobin 26.4 L Mean Corpuscular Hemoglobin Concent 29.7 L Red Cell Distribution Width 18.7 H Platelet Count 213 Mean Platelet Volume 11.6 H Neutrophils % 69.0 Lymphocytes % 15.8 Monocytes % 10.8 Eosinophils % 3.3 Basophils % 1.0 Nucleated Red Blood Cells % 0.0 Neutrophils # 5.0 Lymphocytes # 1.1 Monocytes # 0.8 Eosinophils # 0.2 Basophils # 0.1 Nucleated Red Blood Cells # 0.0 Sodium Level 142 Potassium Level 4.6 Chloride Level 103 Carbon Dioxide Level 26 Anion Gap 18 H Blood Urea Nitrogen 41 #H Creatinine 9.31 #H Glucose Level 81 Calcium Level 7.3 L Phosphorus Level 5.7 H Magnesium Level 1.8 Medications Medications Current Medications Morphine Sulfate 2 mg 2 mg Q3 PRN IV PAIN Last administered on 06/29/17 09:07 ; Admin Dose 2 MG; Start 06/27/17 at 14:00 Levofloxacin/ Dextrose (Levaquin 500mg/ D5W 100 ml (Pmx)) 100 ml @ 100 mls/hr Q48H IVPB Last administered on 06/27/17 14:51; Admin Dose 100 MLS/HR; Start 06/27/17 at 14:00; Stop 06/29/17 at 23:45 Aspirin (Halfprin) 81 mg DAILY PO Last administered on 06/29/17 09:14; Admin Dose 81 MG; Start 06/28/17 at 09:00 Atorvastatin Calcium (Lipitor) 20 mg HS PO Last administered on 06/28/17 20:38 ; Admin Dose 20 MG; Start 06/27/17 at 21:00 Gabapentin (Neurontin) 100 mg BID PO Last administered on 06/29/17 09:14; Admin Dose 100 MG; Start 06/27/17 at 21:00 Insulin Glargine (Lantus) 12 unit DAILY@20 SC Last administered on 06/27/17 21 :12; Admin Dose 12 UNIT; Start 06/27/17 at 20:00 Quetiapine Fumarate (Seroquel) 400 mg HS PO Last administered on 06/28/17 20: 38; Admin Dose 400 MG; Start 06/27/17 at 21:00 Quetiapine Fumarate (Seroquel) 100 mg DAILY PO Last administered on 06/29/17 09:14; Admin Dose 100 MG; Start 06/28/17 at 09:00 Sertraline HCl (Zoloft) 50 mg DAILY PO Last administered on 06/29/17 09:21; Admin Dose 50 MG; Start 06/28/17 at 09:00 Zolpidem Tartrate (Ambien) 10 mg QHS PRN PO INSOMNIA Last administered on 23:14; Admin Dose 10 MG; Start 06/27/17 at 14:30 Ondansetron HCl (Zofran Inj) 4 mg Q6H PRN IV NAUSEA AND/OR VOMITING; Start 06/27/17 at 14:30 Acetaminophen (Tylenol Tab) 650 mg Q6H PRN PO PAIN LEVEL 1-3 OR FEVER Last administered on 06/28/17 13:49; Admin Dose 650 MG; Start 06/27/17 at 14:30 Acetaminophen (Tylenol Supp) 650 mg Q6H PRN [place] PAIN LEVEL 1-3 OR FEVER; Start 06/27/17 at 14:30 Docusate Sodium (Colace) 100 mg Q12H PRN PO CONSTIPATION; Start 06/27/17 at 14: 30 Heparin Sodium (Porcine) (Heparin (5000 Units/0.5 ml)) 5,000 unit Q12 SC Last administered on 06/29/17 10:07; Admin Dose 5,000 UNIT; Start 06/27/17 at 21:00 Diagnostic Test (Pha) (Accu-Chek) 1 ea 02 XX ; Start 06/28/17 at 02:00 Carvedilol (Coreg) 3.125 mg BID PO Last administered on 06/28/17 08:56; Admin Dose 3.125 MG; Start 06/27/17 at 21:00 Lisinopril (Zestril) 5 mg Q24H PO Last administered on 06/27/17 21:13; Admin Dose 5 MG; Start 06/27/17 at 21:00 Lacosamide (Vimpat Liq) 150 mg BID PO Last administered on 06/29/17 12:11; Admin Dose 150 MG; Start 06/28/17 at 09:00 Tramadol HCl (Ultram) 50 mg Q6H PRN PO PAIN Last administered on 06/28/17 21: 09; Admin Dose 50 MG; Start 06/28/17 at 21:00 Ketorolac Tromethamine (Toradol) 15 mg Q6H PRN IV PAIN Last administered on 11/ 9/17at 23:00; Admin Dose 15 MG; Start 06/28/17 at 21:00; Stop 07/01/17 at 20:59 Midodrine (Proamatine) 10 mg TID@,, PO Last administered on 06/29/17t 09 :14; Admin Dose 10 MG; Start 06/29/17 at 09:00 Levofloxacin (Levaquin) 500 mg Q48H PO ; Start 07/01/17 at 14:00 Claude Moya DO Jun 29, 2017 12:18
--- NOTE | 2017-06-29 12:44 | PN ---
Date/Time of Note Date/Time of Note DATE: 06/29/17 TIME: 12:37 Assessment/Plan VTE Prophylaxis VTE Prophylaxis Intervention: ambulation Lines/Catheters IV [facility] Type [facility]from [facility] Urinary Cath still in place: No Assessment/Plan Chief Complaint/Hosp Course 57-year-old male with a past medical history of end-stage renal disease on hemodialysis, presenting with shortness of breath who also missed 2 sessions of hemodialysis. 1. Acute on chronic CHF exacerbation secondary to volume overload secondary to missed hemodialysis. With clinical and radiographic improvement. -Cardiology evaluation appreciated. Today BB/ACEi withheld 2/2 hypotension.Continue aspirin/statin. -Monitor volume status closely. 2. Acute hypoxic respiratory failure likely secondary to #1 versus COPD exacerbation. Resolved. -Continue as needed bronchodilators. -Follow-up chest x-ray. 3. Hyperkalemia with ESRD.Stable -Follow-up with nephrology recommendations. 4. End-stage renal disease, on hemodialysis Sunday, Sunday, Sunday. -Follow-up with nephrology recommendations on dialysis. 5. Cardiomyopathy with ejection fraction 30%. -Follow-up with 2D echocardiogram. BB/ACEi as BP permits. 6. Coronary artery disease. -Continue home medications. 7. Type 2 diabetes. -Accu-Cheks/ISS. 8. Hypertension-Now with hypotensive episodes 2/2 antihypertensives given with HD. -STOP Midodrine and use PRN Daily if needed. Monitor BP over nect 24hrs and recommend resuming BB/ACEi as BP permits. 9. Anemia of chronic kidney disease. H&H stable. -Monitor closely. Patient also on Epogen per nephrology. 10. Hypothyroidism. -On Synthroid. 12.Mitral Valve Regurgitation per Echo. -F/u cards recs. 13. History of psych disorder, bipolar. -Continue home medications. 14. Seizure disorder. Currently no acute episodes. -Continue home medications. Prophylaxis: SCDs Follow-up with cardiology and nephrology recommendations. Estimate discharge planning in 24-48 hours. F/u with cards tomorrow regarding resuming antihypertensives prior DC. Patient is seen in collaboration with . Problems: Subjective 24 Hr Interval Summary Free Text/Dictation Had hypotensive episodes after hemodialysis. Exam/Review of Systems Vital Signs Vitals Vital Signs Date Time Temp Pulse Resp B/P Pulse Ox O2 Delivery O2 Flow Rate FiO2 06/29/17 12:24 98.6 97 18 111/78 91 06/29/17 01:57 3.0 06/28/17 21:15 Nasal Cannula 06/27/17 05:58 21 Intake and Output 06/28/17 06/28/17 06/29/17 15:00 23:00 07:00 Intake Total 1400 ml 900 ml Output Total 4600 ml Balance -3200 ml 900 ml Exam General: Well developed,adequately built -Dutch male, in mild respiratory distress HEENT: Normocephalic, Atraumatic, No laceration or hematoma; Eyes: PEERL, Conjunctiva clear, Anicteric sclera Neck: Supple without any lymphadenopathy, nontender, no JVD, no carotid bruits, trachea midline, no thyromegaly Cardiac: S1, S2 auscultated, regular rhythm and rate, no mumurs or gallop Pulmonary: Diminished bibasilar. No adventitious sounds. GI: Abdomen normal to inspection. Soft, non tender, non- distended, no masses, no rebound tenderness or guarding. Bowel sounds active on all four quadrants Genitourinary: Deferred Extremities: No cyanosis, clubbing, or edema. Pulses [2+] bilaterally. Full ROM on all four extremities. No focal weakness appreciated. Neurologic: Alert to person, place, time, and situation. Affect appropriate, intact sensation. Skin: Clean,dry, and intact. No ecchymosis, no rashes, or lesions Results Result Diagram: 06/29/17 0656 06/29/17 0656 Results 24 hrs Laboratory Tests Test 06/28/17 17:34 06/28/17 19:32 06/29/17 06:56 06/29/17 08:45 Bedside Glucose 85 78 87 White Blood Count 7.2 Red Blood Count 4.05 L Hemoglobin 10.7 L Hematocrit 36.0 L Mean Corpuscular Volume 88.9 Mean Corpuscular Hemoglobin 26.4 L Mean Corpuscular Hemoglobin Concent 29.7 L Red Cell Distribution Width 18.7 H Platelet Count 213 Mean Platelet Volume 11.6 H Neutrophils % 69.0 Lymphocytes % 15.8 Monocytes % 10.8 Eosinophils % 3.3 Basophils % 1.0 Nucleated Red Blood Cells % 0.0 Neutrophils # 5.0 Lymphocytes # 1.1 Monocytes # 0.8 Eosinophils # 0.2 Basophils # 0.1 Nucleated Red Blood Cells # 0.0 Sodium Level 142 Potassium Level 4.6 Chloride Level 103 Carbon Dioxide Level 26 Anion Gap 18 H Blood Urea Nitrogen 41 #H Creatinine 9.31 #H Glucose Level 81 Calcium Level 7.3 L Phosphorus Level 5.7 H Magnesium Level 1.8 Test 06/29/17 12:11 Bedside Glucose 115 Medications Medications Current Medications Morphine Sulfate 2 mg 2 mg Q3 PRN IV PAIN Last administered on 06/29/17 09:07 ; Admin Dose 2 MG; Start 06/27/17 at 14:00 Levofloxacin/ Dextrose (Levaquin 500mg/ D5W 100 ml (Pmx)) 100 ml @ 100 mls/hr Q48H IVPB Last administered on 06/27/17 14:51; Admin Dose 100 MLS/HR; Start 06/27/17 at 14:00; Stop 06/29/17 at 23:45 Aspirin (Halfprin) 81 mg DAILY PO Last administered on 06/29/17 09:14; Admin Dose 81 MG; Start 06/28/17 at 09:00 Atorvastatin Calcium (Lipitor) 20 mg HS PO Last administered on 06/28/17 20:38 ; Admin Dose 20 MG; Start 06/27/17 at 21:00 Gabapentin (Neurontin) 100 mg BID PO Last administered on 06/29/17 09:14; Admin Dose 100 MG; Start 06/27/17 at 21:00 Insulin Glargine (Lantus) 12 unit DAILY@20 SC Last administered on 06/27/17 21 :12; Admin Dose 12 UNIT; Start 06/27/17 at 20:00 Quetiapine Fumarate (Seroquel) 400 mg HS PO Last administered on 06/28/17 20: 38; Admin Dose 400 MG; Start 06/27/17 at 21:00 Quetiapine Fumarate (Seroquel) 100 mg DAILY PO Last administered on 06/29/17 09:14; Admin Dose 100 MG; Start 06/28/17 at 09:00 Sertraline HCl (Zoloft) 50 mg DAILY PO Last administered on 06/29/17 09:21; Admin Dose 50 MG; Start 06/28/17 at 09:00 Zolpidem Tartrate (Ambien) 10 mg QHS PRN PO INSOMNIA Last administered on 23:14; Admin Dose 10 MG; Start 06/27/17 at 14:30 Ondansetron HCl (Zofran Inj) 4 mg Q6H PRN IV NAUSEA AND/OR VOMITING; Start 06/27/17 at 14:30 Acetaminophen (Tylenol Tab) 650 mg Q6H PRN PO PAIN LEVEL 1-3 OR FEVER Last administered on 06/28/17 13:49; Admin Dose 650 MG; Start 06/27/17 at 14:30 Acetaminophen (Tylenol Supp) 650 mg Q6H PRN [place] PAIN LEVEL 1-3 OR FEVER; Start 06/27/17 at 14:30 Docusate Sodium (Colace) 100 mg Q12H PRN PO CONSTIPATION; Start 06/27/17 at 14: 30 Heparin Sodium (Porcine) (Heparin (5000 Units/0.5 ml)) 5,000 unit Q12 SC Last administered on 06/29/17 10:07; Admin Dose 5,000 UNIT; Start 06/27/17 at 21:00 Diagnostic Test (Pha) (Accu-Chek) 1 ea 02 XX ; Start 06/28/17 at 02:00 Carvedilol (Coreg) 3.125 mg BID PO Last administered on 06/28/17 08:56; Admin Dose 3.125 MG; Start 06/27/17 at 21:00 Lisinopril (Zestril) 5 mg Q24H PO Last administered on 06/27/17 21:13; Admin Dose 5 MG; Start 06/27/17 at 21:00 Lacosamide (Vimpat Liq) 150 mg BID PO Last administered on 06/29/17 12:11; Admin Dose 150 MG; Start 06/28/17 at 09:00 Tramadol HCl (Ultram) 50 mg Q6H PRN PO PAIN Last administered on 06/28/17 21: 09; Admin Dose 50 MG; Start 06/28/17 at 21:00 Ketorolac Tromethamine (Toradol) 15 mg Q6H PRN IV PAIN Last administered on 23:00; Admin Dose 15 MG; Start 06/28/17 at 21:00; Stop 07/01/17 at 20:59 Midodrine (Proamatine) 10 mg TID@,13,17 PO Last administered on 06/29/17t 09 :14; Admin Dose 10 MG; Start 06/29/17 at 09:00 Levofloxacin (Levaquin) 500 mg Q48H PO ; Start 07/01/17 at 14:00 GABRIEL THOMASON NP Jun 29, 2017 12:44
[2017-06-29] MEDS ORDERED: MIDODRINE 5 MG TAB PO PRN (13:00)
[2017-06-29] MEDS: LEVOFLOXACIN 500MG/D5W (PMX) 100 ML IVPB SCH (13:32)
[2017-06-29] MEDS: INSULIN GLARGINE [LANtus] 3 ML PEN SC SCH (20:43)
[2017-06-29] MEDS: ATORVASTATIN 20 MG TAB PO SCH (20:46)
[2017-06-29] MEDS: LISINOPRIL 5 MG TAB PO SCH (21:00)
[2017-06-29] MEDS: ZOLPIDEM 5 MG TAB PO PRN (21:37)
[2017-06-30] VITALS (16 sets, daily range): BP systolic 104–132; BP diastolic 59–89; PULSE 93–116; RESP 19–20
[2017-06-30] MEDS: morphine 2 MG INJ IV PRN ×5 (00:28→16:25)
[2017-06-30] MEDS: ACCU-CHEK XX SCH (02:00)
[2017-06-30] MEDS: INSULIN ASPART [NOVOLOG] 3 ML PEN SC SCH ×2 (07:41→12:31)
[2017-06-30] MEDS: LEVOTHYROXINE 150 MCG TAB PO SCH (07:41)
[2017-06-30 08:44] LABS: CALCIUM 7.1 mg/dl (8.4-10.2); CREATININE 10.53 mg/dl (0.61-1.24); POTASSIUM 5.5 mmol/L (3.5-5.1)
--- NOTE | 2017-06-30 08:47 | CONS ---
Date/Time of Note Date/Time of Note DATE: 06/30/17 TIME: 08:44 Consult Date/Type/Reason Admit Date/Time Jun 27, 2017 at 07:43 Initial Consult Date Type of Consultation: neph Subjective The patient is stable. No events overnight. No fevers, chills, nausea, vomiting. OBJECTIVE: HEENT: Head is normocephalic. NECK: Supple. HEART: Regular rate. LUNGS: Show diminished breath sounds at base. ABDOMEN: Soft, nontender to palpation. No rebound or guarding. EXTREMITIES: Negative for clubbing, cyanosis. DERMATOLOGIC: No rashes. MUSCULOSKELETAL: No joint effusions. NEUROLOGIC: No change in exam. MEDICATIONS: The patient's medications have been reviewed. Objective Vital Signs Date Time Temp Pulse Resp B/P Pulse Ox O2 Delivery O2 Flow Rate FiO2 06/30/17 08:16 97.8 94 19 118/75 100 06/29/17 21:00 Nasal Cannula 2.0 06/27/17 05:58 21 Intake and Output 06/29/17 06/29/17 06/30/17 15:00 23:00 07:00 Intake Total 620 ml 60 ml Balance 620 ml 60 ml Results/Medications Result Diagram: 06/29/17 0656 06/29/17 0656 Results 24 hrs Laboratory Tests Test 06/29/17 08:45 06/29/17 12:11 06/29/17 17:55 06/29/17 20:42 Bedside Glucose 87 115 109 139 Test 06/30/17 07:40 Bedside Glucose 75 Medications Current Medications Morphine Sulfate (morphine) 2 mg Q3 PRN IV PAIN Last administered on 07:45; Admin Dose 2 MG; Start 06/27/17 at 14:00 Aspirin (Halfprin) 81 mg DAILY PO Last administered on 06/29/17 09:14; Admin Dose 81 MG; Start 06/28/17 at 09:00 Atorvastatin Calcium (Lipitor) 20 mg HS PO Last administered on 06/29/17 20: 46; Admin Dose 20 MG; Start 06/27/17 at 21:00 Gabapentin (Neurontin) 100 mg BID PO Last administered on 06/29/17 20:48; Admin Dose 100 MG; Start 06/27/17 at 21:00 Insulin Glargine (Lantus) 12 unit DAILY@20 SC Last administered on 06/29/17 20:43; Admin Dose 12 UNIT; Start 06/27/17 at 20:00 Quetiapine Fumarate (Seroquel) 400 mg HS PO Last administered on 06/29/17 20: 46; Admin Dose 400 MG; Start 06/27/17 at 21:00 Quetiapine Fumarate (Seroquel) 100 mg DAILY PO Last administered on 06/29/17 09:14; Admin Dose 100 MG; Start 06/28/17 at 09:00 Sertraline HCl (Zoloft) 50 mg DAILY PO Last administered on 06/29/17 09:21; Admin Dose 50 MG; Start 06/28/17 at 09:00 Zolpidem Tartrate (Ambien) 10 mg QHS PRN PO INSOMNIA Last administered on 06/29 21:37; Admin Dose 10 MG; Start 06/27/17 at 14:30 Ondansetron HCl (Zofran Inj) 4 mg Q6H PRN IV NAUSEA AND/OR VOMITING; Start 06/27/17 at 14:30 Acetaminophen (Tylenol Tab) 650 mg Q6H PRN PO PAIN LEVEL 1-3 OR FEVER Last administered on 06/28/17 13:49; Admin Dose 650 MG; Start 06/27/17 at 14:30 Acetaminophen (Tylenol Supp) 650 mg Q6H PRN [place] PAIN LEVEL 1-3 OR FEVER; Start 06/27/17 at 14:30 Docusate Sodium (Colace) 100 mg Q12H PRN PO CONSTIPATION; Start 06/27/17 at 14: 30 Heparin Sodium (Porcine) (Heparin (5000 Units/0.5 ml)) 5,000 unit Q12 SC Last administered on 06/29/17 20:44; Admin Dose 5,000 UNIT; Start 06/27/17 at 21:00 Diagnostic Test (Pha) (Accu-Chek) 1 ea 02 XX ; Start 06/28/17 at 02:00 Carvedilol (Coreg) 3.125 mg BID PO Last administered on 06/29/17 20:49; Admin Dose 3.125 MG; Start 06/27/17 at 21:00 Lisinopril (Zestril) 5 mg Q24H PO Last administered on 06/27/17 21:13; Admin Dose 5 MG; Start 06/27/17 at 21:00 Lacosamide (Vimpat Liq) 150 mg BID PO Last administered on 06/29/17 20:50; Admin Dose 150 MG; Start 06/28/17 at 09:00 Tramadol HCl (Ultram) 50 mg Q6H PRN PO PAIN Last administered on 06/28/17 21: 09; Admin Dose 50 MG; Start 06/28/17 at 21:00 Ketorolac Tromethamine (Toradol) 15 mg Q6H PRN IV PAIN Last administered on 23:00; Admin Dose 15 MG; Start 06/28/17 at 21:00; Stop 07/01/17 at 20:59 Levofloxacin (Levaquin) 500 mg Q48H PO ; Start 07/01/17 at 14:00 Midodrine (Proamatine) 5 mg DAILY PRN PO SBP<90; Start 06/29/17 at 13:00 Assessment/Plan Chief Complaint/Hosp Course 1. End-stage renal disease. The patient had hemodialysis consecutively 2 days with one day break, noted hypotension. Anticipate dialysis again qod. assess daily for hd needs. allmeds dosed ok. 2. Volume overload secondary to end-stage renal disease. The patient is clinically improving. Continue ultrafiltration with hemodialysis. 3. Hypertension. Blood pressure controlled. Continue current medical management. 4. Hyperkalemia, resolved. 5. Anemia. Monitor hemoglobin and hematocrit levels. Continue irrigation with dialysis. 6. Mineral bone disorder. Continue to monitor calcium and phosphorus levels. 7. Seizure disorder. Continue current medical management. 8. History of coronary artery disease. 9. Diabetes. Continue Accu-Cheks and insulin sliding scale. 10. resp failure- sec to chf and copd. clinically improving. Problems: VANESA MONTEJO MD Jun 30, 2017 08:47
[2017-06-30] MEDS: ASPIRIN (EC) 81 MG TAB PO SCH (09:14)
[2017-06-30] MEDS: SERTRALINE 50 MG TAB PO SCH (09:14)
[2017-06-30] MEDS: GABAPENTIN 100 MG CAP PO SCH (09:14)
[2017-06-30] MEDS: QUETIAPINE 100 MG TAB PO SCH (09:14)
[2017-06-30] MEDS: HEPARIN 5,000 UNIT/0.5 ML VIAL SC SCH (09:15)
[2017-06-30] MEDS: LACOSAMIDE (100 MG/10 ML PO SYR) PO SCH (09:15)
--- NOTE | 2017-06-30 09:44 | CONS ---
Date/Time of Note Date/Time of Note DATE: 06/30/17 TIME: 09:41 Assessment/Plan Assessment/Plan Chief Complaint/Hosp Course Acute decompensated systolic congestive heart failure, improved End-stage renal disease on hemodialysis Cardiomyopathy with ejection fraction 30% Mitral valve regurgitation Hypertension Psychiatric disorder Seizure disorder Problems: Additional Assessment/Plan off BP meds with controlled BP may restart again in near future dependent on BP increase monitor fluid status Consultation Date/Type/Reason Admit Date/Time Jun 27, 2017 at 07:43 Initial Consult Date Type of Consultation: cv 24 HR Interval Summary Free Text/Dictation no chest pain, no sob, no palpitations, no syncope or near syncope Detailed Summary ENT: no complaints Respiratory: no complaints Cardiovascular: no complaints Gastrointestinal: no complaints Musculoskeletal: no complaints Skin: no complaints Neurologic: no complaints Exam/Review of Systems Vital Signs Vitals Vital Signs Date Time Temp Pulse Resp B/P Pulse Ox O2 Delivery O2 Flow Rate FiO2 06/30/17 08:16 97.8 94 19 118/75 100 06/29/17 21:00 Nasal Cannula 2.0 06/27/17 05:58 21 Intake and Output 06/29/17 06/29/17 06/30/17 15:00 23:00 07:00 Intake Total 620 ml 60 ml Balance 620 ml 60 ml Exam Constitutional: alert, oriented Head: atraumatic, normocephalic Neck: supple Respiratory: clear to auscultation Cardiovascular: regular rate and rhythm Gastrointestinal: soft Musculoskeletal: nl extremities to inspection Extremities: normal pulses Results Result Diagram: 06/29/17 0656 06/30/17 0737 Results 24 hrs Laboratory Tests Test 06/29/17 12:11 06/29/17 17:55 06/29/17 20:42 06/30/17 07:37 Bedside Glucose 115 109 139 Sodium Level 139 Potassium Level 5.5 H Chloride Level 100 Carbon Dioxide Level 23 Anion Gap 22 H Blood Urea Nitrogen 50 H Creatinine 10.53 H Glucose Level 74 Calcium Level 7.1 L Test 06/30/17 07:40 Bedside Glucose 75 Medications Medications Current Medications Morphine Sulfate (morphine) 2 mg Q3 PRN IV PAIN Last administered on 07:45; Admin Dose 2 MG; Start 06/27/17 at 14:00 Aspirin (Halfprin) 81 mg DAILY PO Last administered on 06/30/17 09:14; Admin Dose 81 MG; Start 06/28/17 at 09:00 Atorvastatin Calcium (Lipitor) 20 mg HS PO Last administered on 06/29/17 20: 46; Admin Dose 20 MG; Start 06/27/17 at 21:00 Gabapentin (Neurontin) 100 mg BID PO Last administered on 06/30/17 09:14; Admin Dose 100 MG; Start 06/27/17 at 21:00 Insulin Glargine (Lantus) 12 unit DAILY@20 SC Last administered on 06/29/17 20:43; Admin Dose 12 UNIT; Start 06/27/17 at 20:00 Quetiapine Fumarate (Seroquel) 400 mg HS PO Last administered on 06/29/17 20: 46; Admin Dose 400 MG; Start 06/27/17 at 21:00 Quetiapine Fumarate (Seroquel) 100 mg DAILY PO Last administered on 06/30/17 09:14; Admin Dose 100 MG; Start 06/28/17 at 09:00 Sertraline HCl (Zoloft) 50 mg DAILY PO Last administered on 06/30/17 09:14; Admin Dose 50 MG; Start 06/28/17 at 09:00 Zolpidem Tartrate (Ambien) 10 mg QHS PRN PO INSOMNIA Last administered on 06/29 21:37; Admin Dose 10 MG; Start 06/27/17 at 14:30 Ondansetron HCl (Zofran Inj) 4 mg Q6H PRN IV NAUSEA AND/OR VOMITING; Start 06/27/17 at 14:30 Acetaminophen (Tylenol Tab) 650 mg Q6H PRN PO PAIN LEVEL 1-3 OR FEVER Last administered on 06/28/17 13:49; Admin Dose 650 MG; Start 06/27/17 at 14:30 Acetaminophen (Tylenol Supp) 650 mg Q6H PRN [place] PAIN LEVEL 1-3 OR FEVER; Start 06/27/17 at 14:30 Docusate Sodium (Colace) 100 mg Q12H PRN PO CONSTIPATION; Start 06/27/17 at 14: 30 Heparin Sodium (Porcine) (Heparin (5000 Units/0.5 ml)) 5,000 unit Q12 SC Last administered on 06/30/17 09:15; Admin Dose 5,000 UNIT; Start 06/27/17 at 21:00 Diagnostic Test (Pha) (Accu-Chek) 1 XX ; Start 06/28/17 at 02:00 Carvedilol (Coreg) 3.125 mg BID PO Last administered on 06/29/17 20:49; Admin Dose 3.125 MG; Start 06/27/17 at 21:00 Lisinopril (Zestril) 5 mg Q24H PO Last administered on 06/27/17 21:13; Admin Dose 5 MG; Start 06/27/17 at 21:00 Lacosamide (Vimpat Liq) 150 mg BID PO Last administered on 06/30/17 09:15; Admin Dose 150 MG; Start 06/28/17 at 09:00 Tramadol HCl (Ultram) 50 mg Q6H PRN PO PAIN Last administered on 06/28/17 21: 09; Admin Dose 50 MG; Start 06/28/17 at 21:00 Ketorolac Tromethamine (Toradol) 15 mg Q6H PRN IV PAIN Last administered on 23:00; Admin Dose 15 MG; Start 06/28/17 at 21:00; Stop 07/01/17 at 20:59 Levofloxacin (Levaquin) 500 mg Q48H PO ; Start 07/01/17 at 14:00 Midodrine (Proamatine) 5 mg DAILY PRN PO SBP<90; Start 06/29/17 at 13:00 MARY LOU PAL MD Jun 30, 2017 09:44
[2017-06-30] MEDS: ALBUTEROL/IPRATROPIUM (NEB) 3 ML AMP HHN SCH ×2 (09:49→13:00)
--- NOTE | 2017-06-30 10:43 | PDOCDIS ---
Discharge Instructions CONDITION Patient Condition: Stable HOME CARE INSTRUCTIONS: Special Diet: DIABETIC/RENAL DIET FOLLOW UP/APPOINTMENTS Follow-up Plan 1.FOLLOW-UP WITH SIGN MAINTENANCE/DIALYSIS CLINIC ON SUNDAY 2.FOLLOW-UP WITH , VFX ARTIST IN 1 WEEK [facility] [id number] [place] [address] Office 3.Follow up with primary care physician in 1 week If you don't have one please let someone know, we can give you resources that may help you pick one. You may also call your insurance company to assign one to you. Review your medication list with your nurse before leaving and if you need new prescriptions please let your nurse know. I may have made changes to your home medications or given you new prescriptions, please let your primary doctor know as well. Stay compliant with your medications and report any side effects to your PCP or pharmacist. Return to the ER if you have any concerns and cannot reach your doctors or call your insurance company, they usually have a nurse that can help you. 4. Call 911 or go to the nearest emergency room if experiencing loss of consciousness, dizziness, chest pain, shortness of breath, vomiting/abdominal pain, speech difficulties, motor weakness or any unusual symptoms. GABRIEL THOMASON NP Jun 30, 2017 10:43
[2017-06-30] MEDS ORDERED: CARV3.1260 PO (10:46)
--- NOTE | 2017-06-30 10:47 | DS ---
Date/Time of Note Date/Time of Note DATE: 06/30/17 TIME: 10:47 Discharge Summary Admission/Discharge Info Admit Date/Time Jun 27, 2017 at 07:43 Discharge Date/Time Hx of Present Illness This is a 57-year-old male with a past medical history of end-stage renal disease who is also on dialysis Sunday, Sunday, Sunday, congestive heart failure, nicotine use, COPD, home oxygen use 4 L/min, anemia of chronic kidney disease, hypertension, seizure disorders, who presented to the emergency room with complaints of progressive difficulty with breathing which has been going on for a week. According to the patient, he also missed 2 sessions of hemodialysis. Patient denied any chest pain, palpitation, loss of consciousness , dizziness, numbness, tingling, nausea, vomiting, abdominal pain, or any focal deficits. Chest x-ray showed congestive heart failure. Consolidation could not excluded in the chest x-ray. Vital signs with saturation 87% on room air,Temperature 98.6, pulse rate 103 and blood pressure 152/101. CBC with WBC 4700, hemoglobin 10.5, hematocrit 33.7, potassium 5.9, BUN 54 and creatinine 13.06. Patient was treated in the emergency room with hyperkalemia protocol and was admitted for further evaluation. Hospital Course Acute decompensated systolic congestive heart failure, improved End-stage renal disease on hemodialysis Cardiomyopathy with ejection fraction 30% Mitral valve regurgitation Hypertension Psychiatric disorder Seizure disorder Home Meds Active Scripts Lacosamide (Vimpat) 10 Mg/1 Ml Solution, 150 MG PO BID, #60 Prov:WILIAM PHIPPS MD 05/07/17 Metoprolol Tartrate* (Lopressor*) 25 Mg Tab, 25 MG PO Q12, #60 TAB Prov:WILIAM PHIPPS MD 05/07/17 Atorvastatin Calcium (Atorvastatin Calcium) 20 Mg Tablet, 20 MG PO HS, #30 TAB Prov:WILIAM PHIPPS MD 05/07/17 Gabapentin* (Gabapentin*) 100 Mg Capsule, 100 MG PO BID, #60 CAP Prov:WILIAM PHIPPS MD 05/07/17 Aspirin* (Aspirin* EC) 81 Mg Tablet.dr, 81 MG PO DAILY, #30 Prov:WILIAM PHIPPS MD 05/07/17 Insulin Glargine* (Lantus*) 100 Unit/Ml Soln, 12 UNIT SC DAILY@20 for 60 Days Prov:LINDSEY HERNANDEZ MD 02/15/17 Levothyroxine Sodium* (Synthroid*) 150 Mcg Tablet, 150 MCG PO BEFORE BREAKFAST, #100 TAB Prov:LINDSEY HERNANDEZ MD 02/15/17 Sertraline Hcl* (Sertraline Hcl*) 50 Mg Tablet, 50 MG PO DAILY, #60 TAB Prov:LINDSEY HERNANDEZ MD 02/15/17 Reported Medications Quetiapine Fumarate* (Seroquel*) 100 Mg Tablet, 100 MG PO DAILY TAKEN IN THE MORNING 05/03/17 Furosemide* (Furosemide*) 20 Mg Tablet, 20 MG PO DAILY 05/03/17 Quetiapine Fumarate* (Quetiapine Fumarate*) 400 Mg Tablet, 400 MG PO HS, TAB 05/03/17 Zolpidem Tartrate* (Ambien*) 5 Mg Tablet, 10 MG PO QHS Y for INSOMNIA 05/03/17 Discontinued Reported Medications Oxycodone HCl/Acetaminophen (Percocet 10-325 mg Tablet) 1 Each Tablet, 1 EACH PO Q6 Y for PAIN, TAB 05/03/17 Follow-up Plan 1.FOLLOW-UP WITH SAFETY COMPANION/DIALYSIS CLINIC ON SUNDAY 2.FOLLOW-UP WITH , TIRE FABRIC INSPECTOR IN 1 WEEK [facility] [address] [place] [id number] Office 3.Follow up with primary care physician in 1 week If you don't have one please let someone know, we can give you resources that may help you pick one. You may also call your insurance company to assign one to you. Review your medication list with your nurse before leaving and if you need new prescriptions please let your nurse know. I may have made changes to your home medications or given you new prescriptions, please let your primary doctor know as well. Stay compliant with your medications and report any side effects to your PCP or pharmacist. Return to the ER if you have any concerns and cannot reach your doctors or call your insurance company, they usually have a nurse that can help you. 4. Call 911 or go to the nearest emergency room if experiencing loss of consciousness, dizziness, chest pain, shortness of breath, vomiting/abdominal pain, speech difficulties, motor weakness or any unusual symptoms. Primary Care Provider Not On Staff Doctor Pending Labs Laboratory Tests Test 06/29/17 12:11 06/29/17 17:55 06/29/17 20:42 06/30/17 07:37 Bedside Glucose 115mg/dL (70-220) 109mg/dL (70-220) 139mg/dL (70-220) Sodium Level 139mmol/L (135-144) Potassium Level 5.5mmol/L (3.5-5.1) Chloride Level 100mmol/L (97-110) Carbon Dioxide Level 23mmol/L (21-31) Anion Gap 22 (8-16) Blood Urea Nitrogen 50mg/dl (7-20) Creatinine 10.53mg/dl (0.61-1.24) Glucose Level 74mg/dl (70-220) Calcium Level 7.1mg/dl (8.4-10.2) Test 06/30/17 07:40 Bedside Glucose 75mg/dL (70-220) GABRIEL THOMASON V. CLOTH CARRIER Jun 30, 2017 10:47
--- NOTE | 2017-06-30 13:09 | DS ---
Date/Time of Note Date/Time of Note DATE: 06/30/17 TIME: 13:06 Discharge Summary Admission/Discharge Info Admit Date/Time Jun 27, 2017 at 07:43 Discharge Date/Time Discharge Diagnosis Acute decompensated systolic congestive heart failure, improved End-stage renal disease on hemodialysis Cardiomyopathy with ejection fraction 30% Mitral valve regurgitation Hypertension Psychiatric disorder Seizure disorder Type 2 diabetes. Coronary artery disease Hyperkalemia. Resolved Chronic anemia. Patient Condition: Stable Consults Dr. Toscano, nephrology , cardiology Procedures Chest x-ray, 06/27/2017. IMPRESSION: 1. Interval increased moderately severe congestive heart failure. 2. Interval dense opacification of the left base secondary to the combination of pleural fluid with atelectasis and/or consolidation. 3. Probably no change in the dense opacification of the right base when considering differences in patient positioning. 4. Stable cardiomegaly. 5. Left subclavian central venous catheter in satisfactory position without evidence of a pneumothorax. Chest x-ray, 06/29/2017. IMPRESSION: 1. Left IJ PermCath tip in appropriate position. 2. Improved aeration with residual bilateral basilar airspace opacities and pleural effusions consistent with resolving pulmonary edema. Hospital Course This is a 57-year-old male with multiple comorbidities including a past medical history of end-stage renal disease on dialysis, cardiomyopathy with ejection fraction 30%, coronary artery disease, type 2 diabetes, hypertension, chronic anemia, hypothyroidism, mitral valve regurgitation, bipolar disorders, seizure disorders, presented to the emergency room with worsening shortness of breath after he missed 2 sessions of hemodialysis. Patient has been under the care of [place] doctors. Patient was noted with worsening renal function with hyperkalemia and acute CHF exacerbation with volume overload and was admitted. Patient had stat hemodialysis 3 in a row. His symptoms improved. Patient also had cardiology evaluation for CHF outpatient management. He was started on Coreg and IGLESIA inhibitors, however patient had labile blood pressure and we will withhold. Patient did not have any further shortness of breath. He was able to tolerate diet and activities. His renal function was monitored closely and remained at baseline. Patient was continued on home medication for underlying comorbid conditions. A repeat echocardiogram with ejection fraction 30%, unchanged from before. His blood pressure was closely monitored and remained stable and recommendation was to continue low-dose Coreg. At this time, there is no further inpatient workup indicated and patient is medically stable for discharge with outpatient follow-up. Patient verbalized discharge instructions. Patient is now feeling back to his baseline and his labs and vital signs remained stable. A repeat chest x-ray with improved pulmonary vascular congestion. Disposition: Patient will be discharged home. 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 Patient verbalized discharge instructions. Approximately 60 minutes was spent in coordinating the discharge on this patient. Patient was seen in collaboration with . Home Meds Active Scripts Lacosamide (Vimpat) 10 Mg/1 Ml Solution, 150 MG PO BID, #60 Prov:WILIAM PHIPPS MD 05/07/17 Metoprolol Tartrate* (Lopressor*) 25 Mg Tab, 25 MG PO Q12, #60 TAB Prov:WILIAM PHIPPS MD 05/07/17 Atorvastatin Calcium (Atorvastatin Calcium) 20 Mg Tablet, 20 MG PO HS, #30 TAB Prov:WILIAM PHIPPS MD 05/07/17 Gabapentin* (Gabapentin*) 100 Mg Capsule, 100 MG PO BID, #60 CAP Prov:WILIAM PHIPPS MD 05/07/17 Aspirin* (Aspirin* EC) 81 Mg Tablet., 81 MG PO DAILY, #30 Prov:WILIAM PHIPPS MD 05/07/17 Insulin Glargine* (Lantus*) 100 Unit/Ml Soln, 12 UNIT SC DAILY@20 for 60 Days Prov:LINDSEY HERNANDEZ MD 02/15/17 Levothyroxine Sodium* (Synthroid*) 150 Mcg Tablet, 150 MCG PO BEFORE BREAKFAST, #100 TAB Prov:LINDSEY HERNANDEZ MD 02/15/17 Sertraline Hcl* (Sertraline Hcl*) 50 Mg Tablet, 50 MG PO DAILY, #60 TAB Prov:LINDSEY HERNANDEZ MD 02/15/17 Reported Medications Quetiapine Fumarate* (Seroquel*) 100 Mg Tablet, 100 MG PO DAILY TAKEN IN THE MORNING 05/03/17 Furosemide* (Furosemide*) 20 Mg Tablet, 20 MG PO DAILY 05/03/17 Quetiapine Fumarate* (Quetiapine Fumarate*) 400 Mg Tablet, 400 MG PO HS, TAB 05/03/17 Zolpidem Tartrate* (Ambien*) 5 Mg Tablet, 10 MG PO QHS Y for INSOMNIA 05/03/17 Discontinued Reported Medications Oxycodone HCl/Acetaminophen (Percocet 10-325 mg Tablet) 1 Each Tablet, 1 EACH PO Q6 Y for PAIN, TAB 05/03/17 Follow-up Plan 1.FOLLOW-UP WITH [facility] ON SUNDAY 2.FOLLOW-UP WITH , ECONOMIC CONSULTANT IN 1 WEEK [facility] [address] [address] Office 3.Follow up with primary care physician in 1 week If you don't have one please let someone know, we can give you resources that may help you pick one. You may also call your insurance company to assign one to you. Review your medication list with your nurse before leaving and if you need new prescriptions please let your nurse know. I may have made changes to your home medications or given you new prescriptions, please let your primary doctor know as well. Stay compliant with your medications and report any side effects to your PCP or pharmacist. Return to the ER if you have any concerns and cannot reach your doctors or call your insurance company, they usually have a nurse that can help you. 4. Call 911 or go to the nearest emergency room if experiencing loss of consciousness, dizziness, chest pain, shortness of breath, vomiting/abdominal pain, speech difficulties, motor weakness or any unusual symptoms. Primary Care Provider Not On Staff Doctor Pending Labs Laboratory Tests Test 06/29/17 17:55 06/29/17 20:42 06/30/17 07:37 06/30/17 07:40 Bedside Glucose 109mg/dL (70-220) 139mg/dL (70-220) 75mg/dL (70-220) Sodium Level 139mmol/L (135-144) Potassium Level 5.5mmol/L (3.5-5.1) Chloride Level 100mmol/L (97-110) Carbon Dioxide Level 23mmol/L (21-31) Anion Gap 22 (8-16) Blood Urea Nitrogen 50mg/dl (7-20) Creatinine 10.53mg/dl (0.61-1.24) Glucose Level 74mg/dl (70-220) Calcium Level 7.1mg/dl (8.4-10.2) Test 06/30/17 12:24 Bedside Glucose 150mg/dL (70-220) GABRIEL THOMASON NP Jun 30, 2017 13:09
[2017-06-30] MEDS ORDERED: HEPARIN 1000 UNITS/ML 10 ML INJ CATHETER ONE (14:30)
[2017-07-01] MEDS ORDERED: LEVOFLOXACIN 500 MG TAB PO SCH (14:00)
== END 2017-06-30 17:43 | disposition home or self-care (01) | DRG 291 ==
LOC: E/R 05:44 → MS3 07:43 → UNDOADMIN 07:43 → MS4 12:05
PROVIDERS: ADMIT Hospitalist; ATTEND Hospitalist
PROC: 5A1D70Z Performance of Urinary Filtration, Intermittent, Less than 6 Hours Per Day (ICD-10-PCS; 2017-06-27)
PROC: 5A1D70Z Performance of Urinary Filtration, Intermittent, Less than 6 Hours Per Day (ICD-10-PCS; 2017-06-28)
PROC: 5A1D70Z Performance of Urinary Filtration, Intermittent, Less than 6 Hours Per Day (ICD-10-PCS; principal; 2017-06-29)
DX: I13.2 Hypertensive heart and chronic kidney disease with heart failure and with stage 5 chronic kidney disease, or end stage renal disease (principal); N18.6 End stage renal disease; J96.01 Acute respiratory failure with hypoxia; I50.23 Acute on chronic systolic (congestive) heart failure; J44.1 Chronic obstructive pulmonary disease with (acute) exacerbation; I42.9 Cardiomyopathy, unspecified; E11.22 Type 2 diabetes mellitus with diabetic chronic kidney disease; Z99.2 Dependence on renal dialysis; Z79.4 Long term (current) use of insulin; I34.0 Nonrheumatic mitral (valve) insufficiency; E87.5 Hyperkalemia; I25.10 Atherosclerotic heart disease of native coronary artery without angina pectoris; G40.909 Epilepsy, unspecified, not intractable, without status epilepticus; E03.9 Hypothyroidism, unspecified; D63.1 Anemia in chronic kidney disease; Z91.15 Patient's noncompliance with renal dialysis; E83.51 Hypocalcemia; F17.210 Nicotine dependence, cigarettes, uncomplicated; F31.9 Bipolar disorder, unspecified; Z99.81 Dependence on supplemental oxygen; E87.6 Hypokalemia
CPT/HCPCS: 36415; 36600; 71010; 80048; 80061; 82803; 82962; 83036; 83735; 84100; 84443; 84484; 85025; 85610; 85730; 87081; 90935; 93005; 93306; 94640; 94644; 94664; 96374; 96375; J0610; J1644; J1815; J1885; J1956; J2270; J2930; J3475; J7040; P9047

== ENCOUNTER 2017-08-14 04:38 | Emergency (ER) | payer MEDICARE, OTHER ==
[2017-08-14] VITALS (11 sets, daily range): BP systolic 144–165; BP diastolic 65–114; PULSE 108–116; RESP 20; TEMP 98; Ht 185.4 cm; Wt 86.4 kg
[~2017-08-14] VITALS: Ht 185.4 cm; Wt 86.4 kg
[~2017-08-14 04:38] MED LIST changes: +CARV3.1260 PO; -FURO20TA3 PO; +LEVO150T87 PO; -METO-448 PO; -OXYC-209 PO; -SYN15 PO
[2017-08-14] MEDS ORDERED: ASPIRIN 325 MG TAB PO STA (04:46)
--- NOTE | 2017-08-14 06:13 | RADRPT ---
PROCEDURE: XR Chest. CLINICAL INDICATION: Chest Pain. TECHNIQUE: Portable single view of the chest COMPARISON: 06/29/2017 FINDINGS: Cardiomegaly and dialysis catheter are again seen. Bilateral pleural effusions appear larger than on the prior. Pulmonary vascular congestion and interstitial edema also appears slightly increased. De generative change of the spine. IMPRESSION: Increased changes of fluid overload/congestive heart failure. RPTAT: HLBE Davina Roberts Physician Date Time Electronically viewed and signed by Davina Roberts Physician on 08/14/2017 06:13 LE/
[2017-08-14 06:15] LABS: ABNORMAL IP MESSAGE 1; BASOPHILS % 0.5 % (0.0-2.0); EOSINOPHILS # 0.2 10^3/ul (0.0-0.5); HEMATOCRIT 33.4 % (42.0-52.0); HEMOGLOBIN 10.7 g/dl (14.0-18.0); LYMPHOCYTES # 0.8 10^3/ul (0.8-2.9); LYMPHOCYTES % 9.1 % (15.0-51.0); MEAN CORPUSCULAR HEMOGLOBIN 30.1 pg (29.0-33.0); MEAN CORPUSCULAR VOLUME 94.1 fl (82.0-101.0); MEAN PLATELET VOLUME 10.7 fl (7.4-10.4); MONOCYTE # 0.7 10^3/ul (0.3-0.9); MONOCYTES % 7.7 % (0.0-11.0); NEUTROPHIL # 6.8 10^3/ul (1.6-7.5); NEUTROPHILS % 80.1 % (39.0-77.0); NUCLEATED RED BLOOD CELLS% 0.2 /100WBC (0.0-0.0); PLATELET COUNT 113 10^3/UL (140-415); POSITIVE DIFF @See below; RED BLOOD COUNT 3.55 10^6/ul (4.70-6.10); RED CELL DISTRIBUTION WIDTH 23.6 % (11.5-14.5); WHITE BLOOD COUNT 8.5 10^3/ul (4.8-10.8)
[2017-08-14 06:16] LABS: AADO2 Arterial 71.1 mmHg (7.0-24.0); Allen Test ACCEPTAB; Arterial Base Excess -4.2 mmol/L (-3.0-3); Arterial COHb 3.3 % (0.0-3.0); Arterial Fraction of Oxyhgb 95.3 % (93.0-99.0); Arterial HCO3 19.9 mmol/L (22.0-26.0); Arterial MetHb 0.1 % (0.0-1.5); Arterial Total Hemglobin 11.9 g/dl (12.0-18.0); Blood Gas IEPAP 15/5; MODE MASK - BIPAP
--- NOTE | 2017-08-14 06:19 | ERD ---
ER Documentation Chief Complaint Chief Complaint LIBAN DAWKINS from home, SOB,missed HD yesterday,c/o lower back pain HPI This is a 57-year-old man with a past medical history of diabetes, hypertension , hyperlipidemia, heart failure, COPD, end-stage renal disease on dialysis, neuropathy on gabapentin, bipolar who is presenting with shortness of breath after missing his dialysis yesterday related to a staffing issue at his facility on . The patient felt dyspneic with even minimal exertion this morning, so he called an ambulance. He was found to have decreased breath sounds bilaterally. The patient also complains of lower back pain and abdominal discomfort, but both of these are chronic for him and unchanged. The patient denies feeling sick recently. The patient denies fever or chills. The patient has had no headache or vision changes. The patient does not endorse neck pain. The patient denies lightheadedness or dizziness. The patient has had no chest pain. The patient denies nausea or vomiting. The patient denies changes to bowel movements or urination. The patient has had no focal deficits. The patient has had no weakness or numbness or tingling to the face or extremities. ROS All systems reviewed and are negative except as per history of present illness. Medications Home Meds Active Scripts Carvedilol* (Carvedilol*) 3.125 Mg Tablet, 3.125 MG PO BID, #60 TAB Prov:GABRIEL THOMASON NP 06/30/17 Lacosamide (Vimpat) 10 Mg/1 Ml Solution, 150 MG PO BID, #60 Prov:WILIAM PHIPPS MD 05/07/17 Atorvastatin Calcium (Atorvastatin Calcium) 20 Mg Tablet, 20 MG PO HS, #30 TAB Prov:WILIAM PHIPPS MD 05/07/17 Gabapentin* (Gabapentin*) 100 Mg Capsule, 100 MG PO BID, #60 CAP Prov:WILIAM PHIPPS MD 05/07/17 Aspirin* (Aspirin* EC) 81 Mg Tablet., 81 MG PO DAILY, #30 Prov:WILIAM PHIPPS MD 05/07/17 Insulin Glargine* (Lantus*) 100 Unit/Ml Soln, 12 UNIT SC DAILY@20 for 60 Days Prov:LINDSEY HERNANDEZ MD 02/15/17 Levothyroxine Sodium* (Synthroid*) 150 Mcg Tablet, 150 MCG PO BEFORE BREAKFAST, #100 TAB Prov:LINDSEY HERNANDEZ MD 02/15/17 Sertraline Hcl* (Sertraline Hcl*) 50 Mg Tablet, 50 MG PO DAILY, #60 TAB Prov:LINDSEY HERNANDEZ MD 02/15/17 Reported Medications Quetiapine Fumarate* (Seroquel*) 100 Mg Tablet, 100 MG PO DAILY TAKEN IN THE MORNING 05/03/17 Quetiapine Fumarate* (Quetiapine Fumarate*) 400 Mg Tablet, 400 MG PO HS, TAB 05/03/17 Zolpidem Tartrate* (Ambien*) 5 Mg Tablet, 10 MG PO QHS Y for INSOMNIA 05/03/17 Allergies Allergies: Coded Allergies: No Known Allergy (Unverified , 08/14/17) PMhx/Soc History of Surgery: Yes (right ankle surgery) Anesthesia Reaction: No Hx Neurological Disorder: Yes (neuropathy) Hx Respiratory Disorders: Yes (COPD, CHF) Hx Cardiac Disorders: Yes (CARDIOMYOPATHY, HTN) Hx Psychiatric Problems: Yes (depression) Hx Miscellaneous Medical Probl: Yes ( ESRD on HD, cardiomyopathy with EF of 40% , bipolar, DM) Hx Alcohol Use: Yes Hx Substance Use: No Hx Tobacco Use: Yes Smoking Status: Current every day smoker FmHx Family History: diabetes, No coronary disease Physical Exam Vitals Vital Signs Date Time Temp Pulse Resp B/P Pulse Ox O2 Delivery O2 Flow Rate FiO2 08/14/17 14:15 108 100 35 08/14/17 14:10 110 20 154/106 100 BIPAP 08/14/17 12:30 110 25 08/14/17 12:30 112 08/14/17 12:20 98.0 111 21 147/104 100 BIPAP 08/14/17 11:48 110 08/14/17 11:35 113 100 35 08/14/17 11:31 112 08/14/17 11:13 114 08/14/17 11:00 112 08/14/17 10:30 116 08/14/17 10:00 112 08/14/17 09:30 112 20 08/14/17 09:30 110 08/14/17 08:48 113 100 35 08/14/17 07:15 110 100 35 08/14/17 07:00 97.8 26 130/93 100 BIPAP 08/14/17 06:07 111 23 146/104 BIPAP 08/14/17 05:33 112 100 35 08/14/17 04:51 Nasal Cannula 4.0 08/14/17 04:51 Nasal Cannula 4 08/14/17 04:40 97.1 114 18 131/91 98 Physical Exam Const: No apparent distress, well-developed, well-nourished Head: Normocephalic, Atraumatic Eyes: Normal Conjunctiva. Extraocular movements intact. Pupils equal, round and reactive to light ENT: Normal External Ears, Nose and Mouth. Neck: Full range of motion. No meningismus. Resp: Rales bibasilarly, diffuse faint wheezes, decreased breath sounds bilaterally, No wheezes or rhonchi Cardio: Tachycardia, regular rhythm. No murmurs, rubs or gallops Abd: Soft, non tender, non distended. Normal bowel sounds Skin: No petechiae or rashes Back: No midline tenderness. No CVA tenderness Ext: No cyanosis, or edema Neur: Awake and alert, oriented 4. Cranial nerves intact. No facial droop. Normal strength, sensation and coordination. Psych: Normal Mood and Affect Result Diagram: 08/14/17 0540 08/14/17 0540 Results 24 hrs Laboratory Tests Test 08/14/17 05:40 08/14/17 05:42 08/14/17 09:34 08/14/17 12:28 White Blood Count 8.510^3/ul Red Blood Count 3.5510^6/ul Hemoglobin 10.7g/dl Hematocrit 33.4% Mean Corpuscular Volume 94.1fl Mean Corpuscular Hemoglobin 30.1pg Mean Corpuscular Hemoglobin Concent 32.0g/dl Red Cell Distribution Width 23.6% Platelet Count 15635^3/UL Mean Platelet Volume 10.7fl Neutrophils % 80.1% Lymphocytes % 9.1% Monocytes % 7.7% Eosinophils % 2.0% Basophils % 0.5% Nucleated Red Blood Cells % 0.2/100WBC Neutrophils # 6.810^3/ul Lymphocytes # 0.810^3/ul Monocytes # 0.710^3/ul Eosinophils # 0.210^3/ul Basophils # 0.010^3/ul Nucleated Red Blood Cells # 0.010^3/ul Sodium Level 141mmol/L Potassium Level 5.5mmol/L Chloride Level 100mmol/L Carbon Dioxide Level 21mmol/L Anion Gap 26 Blood Urea Nitrogen 62mg/dl Creatinine 11.50mg/dl Glucose Level 75mg/dl Calcium Level 8.1mg/dl Troponin I 0.109ng/ml 0.101ng/ml B-Type Natriuretic Peptide [id number] Blood Gas Specimen Source Blood arterial Arterial Blood Date Drawn 08/14/2017 6:10:13 AM Arterial Blood pH (Temp corrected) 7.393 Arterial Blood pCO2 (Temp correct) 33.4mmhg Arterial Blood pO2 (Temp corrected) 139.6mmHG Arterial Blood HCO3 19.9mmol/L Arterial Blood Base Excess -4.2mmol/L Arterial Blood Oxygen Saturation 98.7mmHG Roe Test ACCEPTAB Arterial Blood Gas Puncture Site Right Radial Arterial Blood Carboxyhemoglobin 3.3% Arterial Blood Methemoglobin 0.1% Blood Gas A-a O2 Differential 71.1mmHg Oxyhemoglobin Percent 95.3% Total Hemoglobin 11.9g/dl Blood Gas Temperature 37.0C Blood Gas Respiration Rate 16.0 Blood Gas Actual Respiration Rate 24 Blood Gas Modality MASK - BIPAP FiO2 35.0% Blood Gas IPAP/EPAP Ratio 15/5 Blood Gas Notified Whom MH Blood Gas Notified Time 08/14/2017 6:15:55 AM Creatine Kinase 104IU/L Creatine Kinase Index 3.9 Creatinine Kinase MB (Mass) 4.04ng/ml Bedside Glucose 112mg/dL Current Medications Medications (Trade) Dose Ordered Sig/Yocasta Route PRN Reason Start Time Stop Time Status Last Admin Dose Admin Aspirin (Aspirin) 325 mg ONCE STAT PO 08/14/17 04:46 08/14/17 04:47 DC 08/14/17 06:14 Ipratropium [place] (Atrovent 0.02% (Neb)) 1.5 mg ONCE STAT INH 08/14/17 06:48 08/14/17 06:50 DC 08/14/17 07:12 Albuterol (Proventil 0.5% (Neb)) 15 mg ONCE STAT INH 08/14/17 06:48 08/14/17 06:50 DC 08/14/17 07:12 Methylprednisolone Sodium Succinate (Solu-Medrol) 125 mg ONCE STAT IV 08/14/17 06:48 08/14/17 06:50 DC 08/14/17 07:13 Morphine Sulfate (morphine) 4 mg ONCE STAT IV 08/14/17 07:54 08/14/17 07:55 DC Ondansetron HCl (Zofran Inj) 4 mg ER BRIDGE PRN IV NAUSEA AND/OR VOMITING 08/14/17 09:00 08/14/17 15:11 DC Acetaminophen (Tylenol Tab) 650 mg ER BRIDGE PRN PO MILD PAIN/FEVER 08/14/17 09:00 08/14/17 15:11 DC Aspirin (Halfprin) 81 mg DAILY PO 08/15/17 09:00 08/15/17 09:00 DC Atorvastatin Calcium (Lipitor) 20 mg HS PO 08/14/17 21:00 08/14/17 21:00 DC Carvedilol (Coreg) 3.125 mg BID PO 08/14/17 21:00 08/14/17 21:00 DC Gabapentin (Neurontin) 100 mg BID PO 08/14/17 21:00 08/14/17 21:00 DC Insulin Glargine (Lantus) 12 unit DAILY@20 SC 08/14/17 20:00 08/14/17 20:00 DC Lacosamide (Vimpat Liq) 150 mg BID PO 08/14/17 21:00 08/14/17 21:00 DC Levothyroxine Sodium (Synthroid) 150 mcg BEFORE BREAKFAST PO 08/15/17 07:00 08/15/17 07:00 DC Quetiapine Fumarate (Seroquel) 400 mg HS PO 08/14/17 21:00 08/14/17 21:00 DC Quetiapine Fumarate (Seroquel) 100 mg DAILY PO 08/15/17 09:00 08/15/17 09:00 DC Sertraline HCl (Zoloft) 50 mg DAILY PO 08/15/17 09:00 08/15/17 09:00 DC Zolpidem Tartrate (Ambien) 10 mg QHS PRN PO INSOMNIA 08/14/17 21:00 08/14/17 21:00 DC IV Flush (NS 3 ml) 3 ml PER PROTOCOL IV 08/14/17 11:00 08/14/17 15:11 DC Ondansetron HCl (Zofran Inj) 4 mg Q6H PRN IV NAUSEA AND/OR VOMITING 08/14/17 11:00 08/14/17 15:11 DC Acetaminophen (Tylenol Tab) 650 mg Q6H PRN PO PAIN LEVEL 1-3 OR FEVER 08/14/17 11:00 08/14/17 15:11 DC Docusate Sodium (Colace) 100 mg Q12H PRN PO CONSTIPATION 08/14/17 11:00 08/14/17 15:11 DC Famotidine (Pepcid) 10 mg Q24H PO 08/14/17 21:00 08/14/17 21:00 DC Heparin Sodium (Porcine) (Heparin (5000 Units/0.5 ml)) 5,000 unit Q12 SC 08/14/17 21:00 08/14/17 21:00 DC Miscellaneous Information (* Miscellaneous Pharmacy Order) Discontinue current oral sulfonylur... ONCE ONCE XX 08/14/17 11:00 08/14/17 11:01 DC Diagnostic Test (Pha) (Accu-Chek) 1 ea 02 XX 08/15/17 02:00 08/15/17 02:00 DC Miscellaneous Information (* Miscellaneous Pharmacy Order) HYPOGLYCEMIA PROTOCOL w... ONCE ONCE XX 08/14/17 11:00 08/14/17 11:01 DC Insulin Aspart (Novolog Insulin Pen) NOVOLOG *MILD* ALGORITHM WITH MEALS BEDTIME SC 08/14/17 12:00 08/14/17 15:11 DC Miscellaneous Information (* Miscellaneous Pharmacy Order) Discontinue all previ... ONCE ONCE XX 08/14/17 11:00 08/14/17 11:01 DC Albuterol/ Ipratropium (Duoneb) 3 ml Q4H RESP THERAPY N 08/14/17 13:00 08/14/17 15:11 DC Albuterol/ Ipratropium (Duoneb) 3 ml Q2H RESP THERAPY PRN HHN wheezing/sob 08/14/17 11:30 08/14/17 15:11 DC Heparin Sodium (Porcine) (Heparin (1000 Units/ml)) 4,000 unit ONCE ONCE CATHETER 08/14/17 12:00 08/14/17 12:01 DC Miscellaneous Information 1 ea NOTE XX 08/14/17 13:30 12/26/17 15:11 DC Glucose (Glutose) 15 gm Q15M PRN PO DECREASED GLUCOSE 08/14/17 13:30 08/14/17 15:11 DC Glucose (Glutose) 22.5 gm Q15M PRN PO DECREASED GLUCOSE 08/14/17 13:30 08/14/17 15:11 DC Dextrose (D50w Syringe) 25 ml Q15M PRN IV DECREASED GLUCOSE 08/14/17 13:30 08/14/17 15:11 DC Dextrose (D50w Syringe) 50 ml Q15M PRN IV DECREASED GLUCOSE 08/14/17 13:30 12 15:11 DC Glucagon (Glucagen) 1 mg Q15M PRN IM DECREASED GLUCOSE 08/14/17 13:30 08/14/17 15:11 DC Glucose (Glutose) 15 gm Q15M PRN BUCCAL DECREASED GLUCOSE 08/14/17 13:30 08/14/17 15:11 DC Procedures/MDM MDM The patient's presentation warrants further investigation. The patient's presenting with shortness of breath. The patient does have signs of COPD today. He also has signs of heart failure. We will evaluate for both. LABS The patient's blood work was obtained and reviewed. The patient's CBC shows no leukocytosis and no left shift. The patient is afebrile and does not appear systemically ill. I do not suspect a systemic infection. The patient has a normocytic anemia today, likely anemia of chronic disease. He is also mildly thrombocytopenic, which also does not require emergent treatment. This is happened to him in the past. The patient's BMP shows elevation of his BUN and creatinine, which correlates with end-stage renal disease after missing dialysis. The patient's troponin is at 0.109. The patient's BNP is also elevated at 16,700. The patient's potassium is 5.5, but the sample is mildly hemolyzed. I have decreased suspicion for hyperkalemia at this time. The patient's EKG does not show signs of cardiac irritation. An ABG was completed that revealed an unremarkable pH. EKG EKG read by me: Rate/Rhythm: Regular rhythm, tachycardia at a rate of 113 bpm Intervals: Normal UT interval. Prolonged QRS duration with a right bundle branch block, prolonged QTc [place]: Indeterminate Impression: Sinus tachycardia, prolonged QTC, right bundle branch block, no peaked T waves IMAGING CXR FINDINGS: Cardiomegaly and dialysis catheter are again seen. Bilateral pleural effusions appear larger than on the prior. Pulmonary vascular congestion and interstitial edema also appears slightly increased. Degenerative change of the spine. IMPRESSION: Increased changes of fluid overload/congestive heart failure. Electronically viewed and signed by Davina Roberts, Physician on 08/14/2017 06 :13 TREATMENT/DISPOSITION While the patient is tachycardic, I have decreased suspicion for PE. The patient is not hypoxic presently. He also has more likely diagnosis. The patient does not endorse chest pain, and I have decreased suspicion for acute coronary syndrome. The patient's chest xray does not reveal pneumonia or pneumothorax or pleural effusions. The patient does have pulmonary edema, and I am concerned about heart failure. The patient has an elevated BNP, but this needs to be considered in the setting of end-stage renal disease. That said, my suspicion is high in the setting of missed dialysis. The patient does have a known diagnosis of COPD and is wheezing today. This may also be related today. The patient required BiPAP in the ER. He does not have a widened mediastinum and does not have signs or symptoms concerning for thoracic aortic aneurysm or dissection. He does not have pneumomediastinum or signs concerning for esophageal tear or rupture. She has no clinical or radiographic signs of pericardial effusion or tamponade. She does not have pneumoperitoneum and I have decreased suspicion of viscus perforation and a possibility of referred pain. At this time, I feel that the patient requires admission for further evaluation and management. The patient will be admitted to Panel in accordance with the patient's insurance. The patient was accepted by Dr. Cobian at 08:11AM on August 14, 2017. He will require nephrology consultation in the hospital for evaluation of dialysis today. CRITICAL CARE NOTE Time: 35 minutes excluding all billable procedures. Treatments/Evaluations: Evaluation of the patient's medical record including previous records & current laboratory/imaging studies, close monitoring, potential interventions if hemodynamically unstable or cardiopulmonary decline or neurologic decline, maintaining tight fluid balance, any discussions with the family regarding the patient's status and prognosis. The patient's blood pressure was elevated at greater than 120/80 while in the emergency department. The patient was otherwise stable with no evidence of hypertensive urgency or emergency or end organ damage. The patient does not require admission for blood pressure control. I have discussed with the patient the risks of hypertension. I have advised the patient to follow up with the primary care physician for outpatient monitoring and treatment for hypertension in 2-3 days. I have instructed the patient to return to the ER for any new or worsening symptoms including chest pain, shortness of breath, headache, blurred vision, confusion, nausea, vomiting or LOC. Disclaimer: Inadvertent spelling and grammatical errors are likely due to EHR/ dictation software use and do not reflect on the overall quality of patient care. Note that the electronic time recorded on this note does not necessarily reflect the actual time of the patient encounter. Departure Diagnosis: Primary Impression: CHF exacerbation Congestive heart failure type: unspecified congestive heart failure type Qualified Code: I50.9 - Acute on chronic congestive heart failure, unspecified congestive heart failure type Additional Impressions: Shortness of breath Missed dialysis COPD (chronic obstructive pulmonary disease) COPD type: unspecified COPD Qualified Code: J44.9 - Chronic obstructive pulmonary disease, unspecified COPD type Anemia of chronic disease Hyperkalemia Condition: Serious RUBEN RIVERA MD Aug 14, 2017 06:19
[2017-08-14] MEDS ORDERED: METHYLPREDNISOLONE 125 MG INJ IV STA (06:48)
[2017-08-14] MEDS ORDERED: ALBUTEROL 0.5% (NEB) 2.5 MG/0.5 ML AMP INH STA (06:48)
[2017-08-14] MEDS ORDERED: IPRATROPIUM (NEB) 0.5 MG/2.5 ML AMP INH STA (06:48)
[2017-08-14 06:53] LABS: CALCIUM 8.1 mg/dl (8.4-10.2); CREATININE 11.5 mg/dl (0.61-1.24)
[2017-08-14 07:05] LABS: TROPONIN-I 0.109 ng/ml (0.00-0.12)
[2017-08-14 07:13] LABS: POTASSIUM 5.5 mmol/L (3.5-5.1)
[2017-08-14] MEDS ORDERED: morphine 4 MG/ML VIAL IV STA (07:54)
[2017-08-14] MEDS ORDERED: ACETAMINOPHEN 325 MG TAB PO PRN ×2 (09:00→11:00)
[2017-08-14] MEDS ORDERED: ONDANSETRON 4 MG INJ IV PRN ×2 (09:00→11:00)
--- NOTE | 2017-08-14 10:19 | CONS ---
DATE OF ADMISSION: 08/14/2017 DATE OF CONSULTATION: 08/14/2017 TYPE OF CONSULTATION: Nephrology. REASON FOR CONSULTATION: End-stage renal disease. PHYSICIAN REQUESTING CONSULT: ____ HISTORY OF PRESENT ILLNESS: This is a 57-year-old male with a past medical history of end-stage kaitlin al disease on dialysis Sunday, Sunday, Sunday, history of diabetes, hypertension, dyslipidemia, h istory of CHF, COPD, history of neuropathy, who presents to [facility] with compla ints of shortness of breath. The patient states that he missed dialysis yesterday when he started d eveloping shortness of breath. As a result, he came into the emergency room for evaluation. Upon a rrival, the patient had a chest x-ray which showed findings of fluid overload, congestive heart fail ure. In the emergency room, the patient was in respiratory distress and was placed on BiPAP therapy . The patient was also given a course of Solu-Medrol. There are no reports of any hemoptysis, zbigniew temesis or hematochezia. PAST MEDICAL HISTORY: As stated above history of end-stage renal disease, anemia, mineral bone spur , hypertension, seizure disorder. PAST SURGICAL HISTORY: Status post Perm-A-Cath placement. ALLERGIES: NO KNOWN DRUG ALLERGIES. FAMILY HISTORY: Noncontributory. SOCIAL HISTORY: Does not drink, smoke or do drugs. MEDICATIONS: Have been reviewed. REVIEW OF SYSTEMS: A 14-point review of systems was conducted. Pertinent positives in HPI, otherwi se negative. PHYSICAL EXAMINATION: VITAL SIGNS: Blood pressure is 142/74, respirations 18, pulse 92. HEENT: Head is normocephalic. NECK: Supple. HEART: Regular rate. LUNGS: Show diminished breath sounds at base. ABDOMEN: Soft, nontender to palpation. No rebound or guarding. EXTREMITIES: Negative for clubbing, cyanosis, no edema. DERMATOLOGIC: No rashes. MUSCULOSKELETAL: No joint effusions. NEUROLOGIC: Limited exam, but no obvious focal deficits. LABORATORY DATA: Shows white count 8.5, hemoglobin 10.7, hematocrit 33.4, platelet count is 113. S odium 141, potassium 5.5, BUN 62, creatinine ____. BNP 16,000. Chest x-ray as stated in HPI. ASSESSMENT AND PLAN: This is a 57-year-old male who presents with: 1. End-stage renal disease. The patient is on dialysis Sunday, Sunday, Sunday. Patient's acces s is Perm-A-Cath. Patient's last hemodialysis was last week. Plan is for urgent hemodialysis. The patient will be dialyzed on 3 hours, 2K bath, calcium 2.5, ultrafiltrate goal 2 to 3 liters. Antic ipate dialysis daily for solute clearance and volume removal. 2. Hyperkalemia secondary to end-stage renal disease. Plan for hemodialysis today. Will dialyze t he patient for 3 hours on 2K bath. 3. Volume overload, acute systolic, diastolic heart failure. The patient has pulmonary congestion. Etiology is secondary to end-stage renal disease and noncompliance with hemodialysis. Plan for di alysis today for volume removal. Continue medical management. 4. Anemia. Monitor hemoglobin and hematocrit levels. Give Epogen as needed. 5. Mineral bone disorder. Monitor calcium and phosphorus levels. Give phosphorus binders as neede d. 6. Acute hypoxemic respiratory failure secondary to congestive heart failure, volume overload. Con tinue current medical management. We will continue ultrafiltration dialysis. Continue BiPAP. 7. Hypertension. Continue current blood pressure regimen. 8. Hypothyroidism. Continue Synthroid. 9. Mood and behavioral disorder. Continue Seroquel. 10. Diabetes. Continue current insulin regimen. 11. Seizure disorder. Continue medical management. Thank you, ____, for this interesting consult. It will be a pleasure to follow the patient with you throughout the hospital course. Dictated By: KERI MEADE/LEAH Conf#: [id number] DID#: [id number]
--- NOTE | 2017-08-14 10:37 | HP ---
Date/Time of Note Date/Time of Note DATE: 08/14/17 TIME: Assessment/Plan VTE Prophylaxis VTE Prophylaxis Intervention: heparin Lines/Catheters IV C[facility]ter [facility] (from [facility]): Saline Lock Assessment/Plan Assessment/Plan 57-year-old male with a past medical history of end-stage renal disease on hemodialysis, presenting with shortness of breath after missing his hemodialysis session on Sunday who was noted with volume overload and hypoxia requiring BiPAP. 1. Acute on chronic CHF exacerbation secondary to volume overload secondary to missed hemodialysis. Status: Acute. -What it appears that patient needs hemodialysis STAT-nephrology consult. -Resume aspirin, statin, beta blockers and IGLESIA inhibitors. -Monitor volume status closely. 2. Acute hypoxic respiratory failure likely secondary to #1 Status: Acute. -Vbhdej-abm-jvjht and PRN nebulizers. -Wean off BiPAP as tolerated. -Follow-up chest x-ray. 3. Hyperkalemia with missed hemodialysis. Status: Acute. -Follow-up with nephrology recommendations. 4. End-stage renal disease, on hemodialysis Sunday, Sunday, Sunday. Status: Chronic. Remarks: Patient missed one session. -Follow-up with nephrology recommendations on dialysis. 5. Cardiomyopathy with last known EF 30%. Status: Chronic. -Resume outpatient medical management. 6. Coronary artery disease. Status: Chronic. -Resume aspirin/statin/beta-haven/IGLESIA inhibitors. 7. Type 2 diabetes. Status: Chronic. -Patient received a dose of IV steroid in the emergency room and therefore he will be closely monitored for hypoglycemia in the setting of type 2 diabetes. -For now, we will place patient on Accu-Cheks/ISS. 8. Essential hypertension. Status: Chronic. -Resume home antihypertensives. 9. Anemia of chronic kidney disease. Status: Chronic. -Stable H&H. Defer nephrology for Epogen. 10. Hypothyroidism Status: Chronic.. -Resume Synthroid. 12.Mitral Valve Regurgitation per Echo. Status: Chronic. -Patient had cardiology evaluation with his recent stay at [facility] and this has been managed medically. 13. Mood disorders. Status: Chronic. -Resume home medications. 14. Seizure disorder. Status: Chronic. -Resume home medications. DVT prophylaxis: Subcutaneous heparin. Rest of the management depend on hospital course and recommendation from consultants. Approximately 60 minutes was spent on this history and physical. Patient was seen in collaboration with . HPI/ROS Admit Date/Time Admit Date/Time Hx of Present Illness This is a 57-year-old -Japanese male with multiple comorbidities including end-stage renal disease on hemodialysis Sunday, cardiomyopathy with ejection fraction 30%, coronary artery disease, type 2 diabetes, current everyday nicotine abuse, hypertension, chronic anemia, hypothyroidism, mitral valve regurgitation, bipolar disorders, seizure disorders , presented to the emergency room after he missed hemodialysis session with resultant shortness of breath started yesterday. Apparently, patient was recently discharged from [facility] and at that time he was treated for CHF exacerbation secondary to missed hemodialysis session. In the emergency room, Patient was noted with a potassium 5.5, BUN 62, creatinine 11.50 , BNP 16,700, hemoglobin 10.7, hematocrit 33.4 and platelet 113 in the emergency room. Chest x-ray showed fluid overload with congestive heart failure. Patient was given aspirin, albuterol, Atrovent, and 125 mg of Solu- Medrol in the emergency room. He also required BiPAP in the emergency room. At my encounter with the patient, he denied chest pain, palpitation, nausea, vomiting, abdominal pain, pedal edema, lightheadedness, headache, dizziness or other constitutional symptoms. ROS A 12 point review of system was assessed and is negative other than what is mentioned in the HPI. PMH/Family/Social Past Medical History See HPI Past Surgical History See HPI Past Surgical Hx: other Social History Current everyday smoker who smokes 4-5 cigarettes per day. No history of alcohol or substance abuse. Smoking Status: Current every day smoker Exam/Review of Systems Vital Signs Vitals Vital Signs Date Time Temp Pulse Resp B/P Pulse Ox O2 Delivery O2 Flow Rate FiO2 08/14/17 08:48 113 100 35 08/14/17 07:00 97.8 26 130/93 BIPAP 08/14/17 04:51 4.0 Exam Exam General: Well developed,adequately built -Japanese male, in mild respiratory distress HEENT: Normocephalic, Atraumatic, No laceration or hematoma; Eyes: PEERL, Conjunctiva clear, Anicteric sclera Neck: Supple without any lymphadenopathy, nontender, no JVD, no carotid bruits, trachea midline, no thyromegaly Cardiac: S1, S2 auscultated, regular rhythm and rate, no mumurs or gallop Pulmonary: Diffuse crackles all over the lung bonilla. Increased work of breathing. On BiPAP currently. No wheezing. GI: Abdomen normal to inspection. Soft, non tender, non- distended, no masses, no rebound tenderness or guarding. Bowel sounds active on all four quadrants Genitourinary: Deferred Extremities: No cyanosis, clubbing, or edema. Pulses [2+] bilaterally. Full ROM on all four extremities. No focal weakness appreciated. Neurologic: Alert to person, place, time, and situation. Affect appropriate, intact sensation. Skin: Dry/scaly skin with chronic hyperpigmentation. No open wounds. Labs Result Diagram: 08/14/17 0540 08/14/17 0540 GABRIEL THOMASON NP Aug 14, 2017 10:37
[2017-08-14] MEDS ORDERED: DOCUSATE SODIUM 100 MG CAP PO PRN (11:00)
[2017-08-14] MEDS ORDERED: NACL 0.9% 3 ML SYG IV SCH (11:00)
[2017-08-14 11:16] LABS: TROPONIN-I 0.101 ng/ml (0.00-0.12)
[2017-08-14 11:26] LABS: CK-MB 4.04 ng/ml (0.0-2.4)
[2017-08-14] MEDS ORDERED: ALBUTEROL/IPRATROPIUM (NEB) 3 ML AMP HHN PRN (11:30)
[2017-08-14] MEDS ORDERED: INSULIN ASPART [NOVOLOG] 3 ML PEN SC SCH (12:00)
[2017-08-14] MEDS ORDERED: HEPARIN 1000 UNITS/ML 10 ML INJ CATHETER ONE (12:00)
[2017-08-14] MEDS ORDERED: ALBUTEROL/IPRATROPIUM (NEB) 3 ML AMP HHN SCH (13:00)
[2017-08-14] MEDS ORDERED: GLUCOSE GEL 15 GRAM TUBE PO PRN ×2 (13:30)
[2017-08-14] MEDS ORDERED: GLUCOSE GEL 15 GRAM TUBE BUCCAL PRN (13:30)
[2017-08-14] MEDS ORDERED: GLUCAGON 1 MG INJ IM PRN (13:30)
[2017-08-14] MEDS ORDERED: DEXTROSE 50% 50 ML SYRINGE IV PRN ×2 (13:30)
--- NOTE | 2017-08-14 16:48 | CONS ---
DATE OF ADMISSION: 08/14/2017 DATE OF CONSULTATION: REASON FOR CONSULTATION: Shortness of breath. Thank you, Dr. Todd, for this consultation. HISTORY OF PRESENT ILLNESS: This is a pleasant 57-year-old gentleman with a history of end-stage re nal failure, hemodialysis, has a several-day history of increasing shortness of breath, orthopnea, P ND, found on admission to have congestive cardiac failure requiring initiation of noninvasive positi ve pressure ventilation. The patient states he has been compliant with diet and dialysis, normally s cheduled dialysis on Sunday, Sunday, Sunday. Unfortunately, the patient missed his dialysis yeste . PAST MEDICAL HISTORY: 1. End-stage renal failure, hemodialysis. 2. Hypertension. 3. Cardiomyopathy with decreased ejection fraction. 4. History of coronary artery disease. 5. Type 2 diabetes. MEDICATIONS: Per chart. ALLERGIES: None. SOCIAL HISTORY: He is a current smoker, 5 to 6 cigarettes a day, no alcohol or drug abuse. FAMILY HISTORY: Noncontributory. PHYSICAL EXAMINATION: GENERAL: Well-nourished, well-developed gentleman on BiPAP, talking in full and complete sentences. Awake, alert, oriented. VITAL SIGNS: Currently afebrile. Pulse is 100, blood pressure 150/100, O2 saturation 96% on BiPAP, FIO2 of 30%. NECK: JVD is elevated. CARDIAC: S1, S2, 2/6 systolic ejection murmur. CHEST: Diminished air entry both lung bases. ABDOMEN: Soft, nontender. No guarding or rebound. EXTREMITIES: No cyanosis, clubbing, edema. NEUROLOGIC: No focal deficits. LABORATORY DATA: White count 8.5, hemoglobin 10.7, platelets of 113. BUN 62, creatinine 11.5, plat elets within normal limits. ABG: pH 7.39, pCO2 of 33, PaO2 of 139 on BiPAP. DIAGNOSTIC DATA: Chest x-ray was reviewed and showed increased vascular congestion. IMPRESSION: 1. Hypoxemic respiratory failure, likely secondary to volume overload from cardiorenal syndrome. 2. End-stage renal failure on hemodialysis. 3. Type 2 diabetes. PLAN: 1. Emergent hemodialysis with volume removal. 2. Decrease FIO2 as tolerated. 3. DVT and GI prophylaxis. 4. Continue outpatient glycemic management. Dictated By: SALVATORE LUCIANO/LEAH Conf#: [id number] [facility]#: [id number] CC: KERI DE SOUZA DO; ELIZABETH TODD MD; RUBEN RIVERA MD;*[facility]*
[2017-08-14] MEDS ORDERED: INSULIN GLARGINE [LANtus] 3 ML PEN SC SCH (20:00)
[2017-08-14] MEDS ORDERED: LACOSAMIDE (100 MG/10 ML PO SYR) PO SCH (21:00)
[2017-08-14] MEDS ORDERED: QUETIAPINE 100 MG TAB PO SCH (21:00)
[2017-08-14] MEDS ORDERED: ZOLPIDEM 5 MG TAB PO PRN (21:00)
[2017-08-14] MEDS ORDERED: ATORVASTATIN 20 MG TAB PO SCH (21:00)
[2017-08-14] MEDS ORDERED: FAMOTIDINE 20 MG TAB PO SCH (21:00)
[2017-08-14] MEDS ORDERED: HEPARIN 5,000 UNIT/0.5 ML VIAL SC SCH (21:00)
[2017-08-14] MEDS ORDERED: GABAPENTIN 100 MG CAP PO SCH (21:00)
[2017-08-15] MEDS ORDERED: ACCU-CHEK XX SCH (02:00)
[2017-08-15] MEDS ORDERED: LEVOTHYROXINE 150 MCG TAB PO SCH (07:00)
[2017-08-15] MEDS ORDERED: ASPIRIN (EC) 81 MG TAB PO SCH (09:00)
[2017-08-15] MEDS ORDERED: QUETIAPINE 100 MG TAB PO SCH (09:00)
[2017-08-15] MEDS ORDERED: SERTRALINE 50 MG TAB PO SCH (09:00)
--- NOTE | 2017-08-15 09:12 | DS ---
Date/Time of Note Date/Time of Note DATE: 08/15/17 TIME: 09:05 Discharge Summary Admission/Discharge Info Admit Date/Time Discharge Date/Time 08/14/2017 (AGAINST MEDICAL ADVICE) Discharge Diagnosis Admitting diagnosis-patient went AGAINST MEDICAL ADVICE. 1. Acute on chronic CHF exacerbation secondary to volume overload secondary to missed hemodialysis.s/p HD with -3600ml in ER 2. Acute hypoxic respiratory failure likely secondary to #1 3. Hyperkalemia with missed hemodialysis. 4. End-stage renal disease, on hemodialysis Sunday, Sunday, Sunday. 5. Cardiomyopathy with last known EF 30%. 6. Coronary artery disease. 7. Type 2 diabetes 8. Essential hypertension. 9. Anemia of chronic kidney disease. 10.Hypothyroidism 12.Mitral Valve Regurgitation per Echo. 13. Mood disorders 14. Seizure disorder. Consults Dr. Toscano, nephrology , pulmonary Procedures Chest x-ray 08/14/2017. IMPRESSION: Increased changes of fluid overload/congestive heart failure. Hemodialysis 08/14/2017. Net balance -3600 ml. Hx of Present Illness This is a 57-year-old -[place] male with multiple comorbidities including end-stage renal disease on hemodialysis Sunday, cardiomyopathy with ejection fraction 30%, coronary artery disease, type 2 diabetes, current everyday nicotine abuse, hypertension, chronic anemia, hypothyroidism, mitral valve regurgitation, bipolar disorders, seizure disorders , presented to the emergency room after he missed hemodialysis session with resultant shortness of breath started yesterday. Apparently, patient was recently discharged from [facility] and at that time he was treated for CHF exacerbation secondary to missed hemodialysis session. In the emergency room, Patient was noted with a potassium 5.5, BUN 62, creatinine 11.50 , BNP 16,700, hemoglobin 10.7, hematocrit 33.4 and platelet 113 in the emergency room. Chest x-ray showed fluid overload with congestive heart failure. Patient was given aspirin, albuterol, Atrovent, and 125 mg of Solu- Medrol in the emergency room. He also required BiPAP in the emergency room. At my encounter with the patient, he denied chest pain, palpitation, nausea, vomiting, abdominal pain, pedal edema, lightheadedness, headache, dizziness or other constitutional symptoms. Hospital Course This is a 57-year-old male with multiple comorbidities including a past medical history of end-stage renal disease on dialysis, cardiomyopathy with ejection fraction 30%, coronary artery disease, type 2 diabetes, hypertension, chronic anemia, hypothyroidism, mitral valve regurgitation, bipolar disorders, seizure disorders, presented to the emergency room with worsening shortness of breath after he missed his hemodialysis session on Sunday. Patient was noted with worsening renal function with hyperkalemia and acute CHF exacerbation with volume overload. He was placed on a BiPAP and treated with nebulizers. Patient had emergency hemodialysis with net balance -3600 ml. He also had pulmonary evaluation. Recommendation was to admit patient to continue subsequent hemodialysis to optimize volume status and to treat respiratory failure with [id number] and as needed nebulizers. However, patient refused to be admitted and wanted to be discharged home as he feels improvement in his symptoms. Despite our efforts, patient had decided to leave AGAINST MEDICAL ADVICE. Patient has normal mental status and full decisional capacity. He understood her condition and the risk of leaving AMA, including but not limited to permanent disability, etc., and he had an opportunity to ask questions about her medical condition. The patient has been informed that he may return for care anytime and has been referred to her primary care provider for follow- up as soon as possible. Since patient decided to leave AMA, a discharge planning was not made and prescriptions were not given. Case discussed with [facility] Active Scripts Carvedilol* (Carvedilol*) 3.125 Mg Tablet, 3.125 MG PO BID, #60 TAB Prov:GABRIEL THOMASON NP 06/30/17 Lacosamide (Vimpat) 10 Mg/1 Ml Solution, 150 MG PO BID, #60 Prov:WILIAM PHIPPS MD 05/07/17 Atorvastatin Calcium (Atorvastatin Calcium) 20 Mg Tablet, 20 MG PO HS, #30 TAB Prov:WILIAM PHIPPS MD 05/07/17 Gabapentin* (Gabapentin*) 100 Mg Capsule, 100 MG PO BID, #60 CAP Prov:WILIAM PHIPPS MD 05/07/17 Aspirin* (Aspirin* EC) 81 Mg Tablet., 81 MG PO DAILY, #30 Prov:WILIAM PHIPPS MD 05/07/17 Insulin Glargine* (Lantus*) 100 Unit/Ml Soln, 12 UNIT SC DAILY@20 for 60 Days Prov:LINDSEY HERNANDEZ MD 02/15/17 Levothyroxine Sodium* (Synthroid*) 150 Mcg Tablet, 150 MCG PO BEFORE BREAKFAST, #100 TAB Prov:LINDSEY HERNANDEZ MD 02/15/17 Sertraline Hcl* (Sertraline Hcl*) 50 Mg Tablet, 50 MG PO DAILY, #60 TAB Prov:LINDSEY HERNANDEZ MD 02/15/17 Reported Medications Quetiapine Fumarate* (Seroquel*) 100 Mg Tablet, 100 MG PO DAILY TAKEN IN THE MORNING 05/03/17 Quetiapine Fumarate* (Quetiapine Fumarate*) 400 Mg Tablet, 400 MG PO HS, TAB 05/03/17 Zolpidem Tartrate* (Ambien*) 5 Mg Tablet, 10 MG PO QHS Y for INSOMNIA 05/03/17 Primary Care Provider Not On Staff Doctor Pending Labs Laboratory Tests Test 08/14/17 09:34 08/14/17 12:28 Creatine Kinase 104IU/L (23-200) Creatine Kinase Index 3.9 Creatinine Kinase MB (Mass) 4.04ng/ml (0.0-2.4) Troponin I 0.101ng/ml (0.00-0.12) Bedside Glucose 112mg/dL (70-220) GABRIEL THOMASON NP Aug 15, 2017 09:12
== END 2017-08-14 15:11 | disposition left against medical advice (07) ==
LOC: E/R 04:38
DX: I50.9 Heart failure, unspecified (principal); J44.9 Chronic obstructive pulmonary disease, unspecified; E87.5 Hyperkalemia; E11.22 Type 2 diabetes mellitus with diabetic chronic kidney disease; I12.0 Hypertensive chronic kidney disease with stage 5 chronic kidney disease or end stage renal disease; N18.6 End stage renal disease; F17.210 Nicotine dependence, cigarettes, uncomplicated; D63.1 Anemia in chronic kidney disease; Z99.2 Dependence on renal dialysis; Z79.82 Long term (current) use of aspirin; Z79.4 Long term (current) use of insulin
CPT/HCPCS: 36415; 36600; 71010; 80048; 82550; 82553; 82803; 82962; 83880; 84484; 85025; 90935; 93005; 94644; 94660; 96374; 99291; J1644; J2930

== ENCOUNTER 2017-09-12 18:07 | Inpatient (IN) | END 2017-09-14 17:18 | disposition home or self-care (01) | DRG 291 ==

== ENCOUNTER 2017-11-13 18:16 | Observation (INO) | END 2017-11-15 23:00 | disposition home or self-care (01) ==

== ENCOUNTER 2017-12-18 00:55 | Inpatient (IN) | END 2017-12-20 19:30 | disposition home or self-care (01) | DRG 291 ==

== ENCOUNTER 2018-01-06 08:42 | Emergency (ER) | END 2018-01-06 10:17 | disposition home or self-care (01) ==

== ENCOUNTER 2018-01-19 12:51 | Inpatient (IN) | END 2018-02-07 18:19 | disposition home health service (06) | DRG 981 ==

== ENCOUNTER 2018-02-17 21:17 | Inpatient (IN) | END 2018-02-19 13:50 | disposition home or self-care (01) | DRG 640 ==

== ENCOUNTER 2018-05-04 22:17 | Emergency (ER) | END 2018-05-05 03:00 | disposition left against medical advice (07) ==